=== PATIENT | female | born 1990 | race Caucasian/White ===

== ENCOUNTER 2016-11-19 13:39 | Emergency (ER) | payer OTHER ==
[2016-11-19 13:53] VITALS: BP 133/79; PULSE 100; RESP 22; TEMP 98
[2016-11-19] MEDS ORDERED: FAMOTIDINE 20 MG TAB PO STA (14:09)
[2016-11-19] MEDS ORDERED: LORazepam 1 MG TAB PO STA (14:09)
[2016-11-19] MEDS ORDERED: ONDANSETRON ODT 4 MG TAB PO STA (14:09)
--- NOTE | 2016-11-19 14:14 | ED ---
General Adult HPI - General Chief complaint: Alcohol Stated complaint: Withdraw Time Seen by Provider: 11/19/16 14:01 Source: patient, family, RN notes reviewed Mode of arrival: wheelchair Limitations: no limitations - History of Present Illness Initial comments: Patient is a pleasant 26-year-old female presenting to the emergency department for concerns regarding alcohol withdrawal. Patient has been drinking daily, up to a fifth a day for the past 5 months. Patient was in [facility] last night and last alcohol intake was yesterday. Patient feels shaky. Patient was nauseated yesterday. Patient denies suicidal or homicidal thoughts. No confusion. - Related Data Home Medications Medication Instructions Recorded Confirmed Acetaminophen Tab [Tylenol] 650 mg PO Q4H PRN 11/05/16 11/05/16 Ranitidine HCl [Zantac] 150 mg PO AC-BID 11/05/16 11/05/16 hydrOXYzine PAMOATE [Vistaril] 25 mg PO BID PRN 11/05/16 11/05/16 Previous Rx's Medication Instructions Recorded Gabapentin 600 mg PO TID #45 tablet 10/15/16 Citalopram Hydrobromide [CeleXA] 20 mg PO DAILY #30 tab 11/08/16 Doxepin HCl [SINEquan] 100 mg PO HS #30 cap 11/08/16 LORazepam [Ativan] 1 mg PO BID #12 tab 11/08/16 Nicotine 21Mg/24Hr Patch [Habitrol] 1 patch TRANSDERM DAILY #14 patch 11/08/16 Thiamine [Vitamin B-1] 100 mg PO BID@1200,1700 tab 11/08/16 lamoTRIgine [LaMICtal] 100 mg PO DAILY #30 tab 11/08/16 LORazepam [Ativan] 1 mg PO TID PRN #8 tab 11/19/16 Allergies Allergy/AdvReac Type Severity Reaction Status Date / Time No Known Allergies Allergy Verified 11/05/16 12:01 Review of Systems ROS Statement: Those systems with pertinent positive or pertinent negative responses have been documented in the HPI. ROS Other: All systems not noted in ROS Statement are negative. Constitutional: Denies: fever Eyes: Denies: eye pain ENT: Denies: ear pain Respiratory: Denies: cough Cardiovascular: Denies: chest pain Endocrine: Denies: fatigue Gastrointestinal: Reports: nausea Genitourinary: Denies: dysuria Skin: Denies: rash Neurological: Denies: weakness Psychiatric: Denies: suicidal thoughts Past Medical History Past Medical History: No Reported History History of Any Multi-Drug Resistant Organisms: None Reported Additional Past Surgical History / Comment(s): gastric sleeve, heart surgery ( unknown) Past Anesthesia/Blood Transfusion Reactions: No Reported Reaction Past Psychological History: Anxiety, Bipolar, Depression, Panic Disorder Smoking Status: Current every day smoker Past Alcohol Use History: Abuse, Daily Additional Past Alcohol Use History / Comment(s): Drinking everyday for weeks Past Drug Use History: Marijuana, Prescription Drug Abuse Additional Drug Use History / Comment(s): States drinking for days. 1/5 of vodka or 4-6 beers. General Exam Limitations: no limitations General appearance: alert, in no apparent distress, other (Mild resting tremor) Head exam: Present: atraumatic Eye exam: Present: normal appearance ENT exam: Present: normal oropharynx Neck exam: Present: normal inspection Respiratory exam: Present: normal lung sounds bilaterally Cardiovascular Exam: Present: regular rate, normal rhythm GI/Abdominal exam: Present: soft. Absent: tenderness Extremities exam: Present: normal inspection Neurological exam: Present: alert Psychiatric exam: Present: normal affect, normal mood Skin exam: Absent: rash Course Vital Signs 11/19/16 13:48 Temperature 98.0 F Pulse Rate 100 Respiratory 22 Rate Blood Pressure 133/79 O2 Sat by Pulse 99 Oximetry Disposition Clinical Impression: Alcohol withdrawal syndrome Disposition: HOME SELF-CARE Condition: Stable Instructions: Alcohol Withdrawal (ED) Additional Instructions: Discontinue alcohol use. Please follow-up with her primary care physician in the next day or 2 for recheck. Please follow-up with alcohol rehab, numbers are provided. Return for suicidal thoughts, worsening symptoms or other concerns. Prescriptions: LORazepam [Ativan] 1 mg PO TID PRN #8 tab PRN Reason: Anxiety Referrals: Lee Valdez MD [Primary Care Provider] - 1-2 days
== END 2016-11-19 14:25 | disposition home or self-care (01) ==
LOC: EC 13:39
DX: F10.239 Alcohol dependence with withdrawal, unspecified (principal); F17.200 Nicotine dependence, unspecified, uncomplicated; F31.9 Bipolar disorder, unspecified; F41.9 Anxiety disorder, unspecified; F41.0 Panic disorder [episodic paroxysmal anxiety]; Z79.899 Other long term (current) drug therapy
CPT/HCPCS: 99284

== ENCOUNTER 2016-11-24 17:52 | Emergency (ER) | payer OTHER ==
[2016-11-24 18:05] VITALS: BP 118/88; PULSE 118; RESP 20; TEMP 99.2
[2016-11-24] MEDS ORDERED: LORazepam 1 MG TAB PO STA (18:15)
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
== END 2016-11-24 19:13 | disposition home or self-care (01) ==
LOC: EC 17:52
DX: F41.9 Anxiety disorder, unspecified (principal); F41.0 Panic disorder [episodic paroxysmal anxiety]; F31.9 Bipolar disorder, unspecified; F17.200 Nicotine dependence, unspecified, uncomplicated; F10.20 Alcohol dependence, uncomplicated; Z79.899 Other long term (current) drug therapy
CPT/HCPCS: 99282

== ENCOUNTER 2016-12-09 10:59 | Inpatient (IN) | payer MEDICAID, OTHER ==
--- NOTE | 2016-12-09 11:23 | ED ---
General Adult HPI - General Chief complaint: Psychiatric Symptoms Stated complaint: mental health Time Seen by Provider: 12/09/16 11:08 Source: patient, RN notes reviewed Mode of arrival: ambulatory Limitations: no limitations - History of Present Illness Initial comments: Patient is a pleasant 26-year-old female presenting to the emergency department with depression and suicidal thoughts. Symptoms have been progressive over the past 2-3 weeks. Patient has been under increased stress. Patient feels anxious and has a panic attack almost daily. Patient has thoughts of self-harm without specific plan. No homicidal thoughts. Patient admits to occasional auditory and visual hallucinations. Patient does have a history of suicide attempt in the past. No physical complaints. Patient is not sleeping well. Patient occasionally binge eats and then does not eat prolonged periods after that. No alcohol or street drug use. - Related Data Home Medications Medication Instructions Recorded Confirmed Ranitidine HCl [Zantac] 150 mg PO AC-BID 11/05/16 12/09/16 Citalopram Hydrobromide [CeleXA] 40 mg PO DAILY 11/19/16 12/09/16 Doxepin HCl [SINEquan] 200 mg PO HS 11/19/16 12/09/16 Ibuprofen [Motrin] 800 mg PO Q6HR PRN 12/09/16 12/09/16 Previous Rx's Medication Instructions Recorded Gabapentin 600 mg PO TID #45 tablet 10/15/16 lamoTRIgine [LaMICtal] 100 mg PO DAILY #30 tab 11/08/16 LORazepam [Ativan] 1 mg PO TID PRN #8 tab 11/19/16 LORazepam [Ativan] 0.5 mg PO BID #8 tab 11/24/16 Allergies Allergy/AdvReac Type Severity Reaction Status Date / Time No Known Allergies Allergy Verified 12/09/16 12:23 Review of Systems ROS Statement: Those systems with pertinent positive or pertinent negative responses have been documented in the HPI. ROS Other: All systems not noted in ROS Statement are negative. Constitutional: Denies: fever Eyes: Denies: eye pain ENT: Denies: ear pain Respiratory: Denies: cough, dyspnea Cardiovascular: Denies: chest pain Endocrine: Denies: fatigue Gastrointestinal: Denies: abdominal pain, vomiting Genitourinary: Denies: urgency Musculoskeletal: Denies: back pain Skin: Denies: rash Neurological: Denies: weakness Psychiatric: Reports: anxiety, depression, auditory hallucinations, visual hallucinations, suicidal thoughts. Denies: homicidal thoughts Past Medical History Past Medical History: No Reported History History of Any Multi-Drug Resistant Organisms: None Reported Additional Past Surgical History / Comment(s): gastric sleeve, heart surgery ( unknown) Past Anesthesia/Blood Transfusion Reactions: No Reported Reaction Past Psychological History: Anxiety, Bipolar, Depression, Panic Disorder Smoking Status: Current every day smoker Past Alcohol Use History: Abuse, Daily Additional Past Alcohol Use History / Comment(s): Drinking everyday for weeks Past Drug Use History: Marijuana, Prescription Drug Abuse Additional Drug Use History / Comment(s): States drinking for days. 1/5 of vodka or 4-6 beers. General Exam Limitations: no limitations General appearance: alert, in no apparent distress Head exam: Present: atraumatic Eye exam: Present: normal appearance, PERRL ENT exam: Present: normal oropharynx Neck exam: Present: normal inspection Respiratory exam: Present: normal lung sounds bilaterally Cardiovascular Exam: Present: regular rate, normal rhythm GI/Abdominal exam: Present: soft. Absent: tenderness Extremities exam: Present: normal inspection. Absent: pedal edema, calf tenderness Neurological exam: Present: alert Psychiatric exam: Present: depressed, anxious Skin exam: Absent: rash Course Vital Signs 12/09/16 11:01 Temperature 98.3 F Pulse Rate 102 H Respiratory 18 Rate Blood Pressure 131/83 O2 Sat by Pulse 100 Oximetry Medical Decision Making - Medical Decision Making Patient seen by mental health services, who will admit. - Lab Data Lab Results 12/09/16 Range/Units 11:56 Urine Opiates Screen Not Detected (NotDetected) Ur Oxycodone Screen Not Detected (NotDetected) Urine Methadone Screen Not Detected (NotDetected) Ur Propoxyphene Screen Not Detected (NotDetected) Ur Barbiturates Screen Not Detected (NotDetected) U Tricyclic Antidepress Detected H (NotDetected) Ur Phencyclidine Scrn Not Detected (NotDetected) Ur Amphetamines Screen Not Detected (NotDetected) U Methamphetamines Scrn Not Detected (NotDetected) U Benzodiazepines Scrn Not Detected (NotDetected) Urine Cocaine Screen Not Detected (NotDetected) U Marijuana (THC) Screen Not Detected (NotDetected) Disposition Clinical Impression: Suicidal ideation, Depression Disposition: TRANSFER TO PSYCH HOSP/UNIT
[2016-12-09 13:57] VITALS: BMI 26.2
[2016-12-09] MEDS ORDERED: MAGNESIUM HYDROXIDE 2,400 MG/10 ML CUP PO PRN (14:56)
[2016-12-09] MEDS ORDERED: MAG HYDROX/AL HYDROX/SIMETH 30 ML CUP PO PRN (14:56)
[2016-12-09] MEDS ORDERED: ZIPRASIDONE 20 MG VIAL IM PRN (14:56)
[2016-12-09] MEDS: NICOTINE 14MG/24HR PATCH TRANSDERM SCH (16:21)
[2016-12-09] MEDS: GABAPENTIN 300 MG CAP PO SCH ×2 (16:21→23:18)
[2016-12-09] MEDS: LORazepam 1 MG TAB PO PRN (16:25)
[2016-12-09] MEDS: FAMOTIDINE 20 MG TAB PO SCH (23:18)
[2016-12-10] MEDS: FAMOTIDINE 20 MG TAB PO SCH ×2 (08:20→20:43)
[2016-12-10] MEDS: GABAPENTIN 300 MG CAP PO SCH ×3 (08:20→20:43)
[2016-12-10] MEDS: NICOTINE 14MG/24HR PATCH TRANSDERM SCH (08:21)
[2016-12-10] MEDS: LORazepam 1 MG TAB PO PRN ×2 (08:22→16:16)
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
[2016-12-10 10:18] LABS: ALT 25 U/L (9-52); AST 25 U/L (14-36); Alkaline Phosphatase 42 U/L (38-126); Anion Gap 12 mmol/L; Bilirubin, Delta 0.4 mg/dL (0.0-0.2); Blood Urea Nitrogen 12 mg/dL (7-17); Calcium 9.3 mg/dL (8.4-10.2); Carbon Dioxide 22 mmol/L (22-30); Chloride 110 mmol/L (98-107); Glucose 75 mg/dL (74-99); Non-African American GFR(MDRD) >60 (>60 ml/min/1.73 sqM); Potassium 4.4 mmol/L (3.5-5.1); Sodium 144 mmol/L (137-145); Total Bilirubin 0.6 mg/dL (0.2-1.3); Total Protein 6.9 g/dL (6.3-8.2)
[2016-12-10 10:42] LABS: CHCM 32.5; HCT 39.7 % (34.0-46.0); HGB 13.4 gm/dL (11.4-16.0); MCH 33.3 pg (25.0-35.0); MCHC 33.6 g/dL (31.0-37.0); Mean Platelet Volume 8.8; RBC 4.01 m/uL (3.80-5.40); RDW 12.5 % (11.5-15.5); WBC 5.8 k/uL (3.8-10.6); WBC (Perox) 4.46
[2016-12-10] MEDS: ARIPiprazole 2 MG TAB PO SCH (11:00)
[2016-12-10] MEDS: VENLAFAXINE HCL ER 37.5 MG CAP PO SCH (11:00)
[2016-12-10] MEDS: ACETAMINOPHEN TAB 325 MG TAB PO PRN ×2 (11:12→16:15)
[2016-12-10 12:33] LABS: Add Differential Manual Differential
[2016-12-10 12:36] LABS: Nucleated Red Blood Cells 0 /100 WBC (0-0); RBC Morphology Normal; Total Cells Counted 100
--- NOTE | 2016-12-10 12:51 | CONS ---
DATE OF CONSULTATION: 12/09/16 REASON FOR CONSULTATION: Medical management requested by Dr. Salgado. CONSULTATION: This is a 26 year old patient who is known from prior admissions. The patient has a history of depression and suicidal ideation. . Patient has been drinking alcohol for quite some time, though she says she has stopped for the last 3 weeks, in fact. Still smoking a few cigarettes here and there. The patient had a patient had a gastric bypass surgery. Lost over 200 pounds. Patient is here for depression, suicidal ideation. She is very anxious fidgety. REVIEW OF SYSTEMS: CONSTITUTIONAL: None. HEENT: None. RESPIRATORY: None. CARDIOVASCULAR: None. GASTROINTESTINAL: Occasional heartburn. GENITOURINARY: None. MUSCULOSKELETAL: Some tattoos and nose piercing. HEMATOLOGIC: None. LYMPHATICS: None. PSYCHIATRY: Depressed. NEUROLOGICAL: None. PAST MEDICAL HISTORY: Past medical history of bipolar disorder, chronic alcohol and smoking. PAST SURGICAL HISTORY: Gastric bypass surgery. SOCIAL HISTORY: She is still smoking a few cigarettes a day. Lives with her mother and brother, currently not working anywhere. Stopped drinking about 3 weeks ago was drinking quite a bit before that in binges. FAMILY HISTORY: Noncontributory. ALLERGIES: None. HOME MEDICATIONS: Lamictal 100 mg a day. Zantac 150 mg p.o. b.i.d., Ativan 1 mg p.o. t.i.d. p.r.n. Motrin 800 mg q.6 p.r.n., gabapentin 600 mg p.o. t.i.d. ,doxepin 200 mg p.o. q.h.s., Celexa 40 mg p.o. daily. ALLERGIES: None. PHYSICAL EXAMINATION: On examination, temperature 98.3, pulse 86, respiration 16, blood pressure 124/69, pulse 100% on room air, sitting up very anxious appearing. EYES: Clear, conjunctivae normal. HEENT: Oral cavity normal. Nose pierced. NECK: JVD not raised. Mass not palpable. RESPIRATORY: Effort normal. Lungs are clear. CARDIOVASCULAR: First and second sounds normal. No edema. ABDOMEN: Soft, nontender. Liver and spleen not palpable. LYMPHATIC: No lymph node palpable in neck or axillae. PSYCHIATRY: Alert and oriented x3. Mood and affect very anxious appearing, very fidgety. NEUROLOGICAL: Pupils equal. Cranial grossly intact. INVESTIGATIONS: White count 6.7, sodium 149, potassium 3.9. UA negative. Urine drug screen positive for tricyclics. ASSESSMENT: 1. Chronic nicotine dependence. The patient is a cigarette smoker. 2. Hypernatremia from decreased fluid intake. 3. Hypoglycemia from decreased oral intake. 4. Abnormal TSH, need to be repeated as an outpatient. The patient clinically does not appear to be hyperthyroid and this was actually checked previously. PLAN: Patient advised against smoking was put on nicotine patch. should follow up with her family doctor upon discharge, antidepressants per her psychiatrist. Thank you Dr. Salgado
[2016-12-10] MEDS: DOXEPIN 25 MG CAP PO SCH (23:24)
[2016-12-11] MEDS: NICOTINE 14MG/24HR PATCH TRANSDERM SCH (09:11)
[2016-12-11] MEDS: ARIPiprazole 2 MG TAB PO SCH (09:12)
[2016-12-11] MEDS: FAMOTIDINE 20 MG TAB PO SCH ×2 (09:12→21:18)
[2016-12-11] MEDS: VENLAFAXINE HCL ER 37.5 MG CAP PO SCH (09:12)
[2016-12-11] MEDS: GABAPENTIN 300 MG CAP PO SCH ×3 (09:12→21:18)
[2016-12-11] MEDS: LORazepam 1 MG TAB PO PRN (09:14)
--- NOTE | 2016-12-11 09:24 | P.PN ---
Progress Note - Text Interval history: The patient is found in the hallway she follows me to an interview room. She reports that she feels terrible. She states she feels worse in the morning. She is depressed she has suicidal thoughts. She states she continues to have feelings of derealization. She did sleep during the night she did eat a little bit of food at breakfast. She reports she will try to attend groups today. We discussed her current medications. She has no questions but does want to continue using the Ativan. Mental status exam: The patient is alert she has a disheveled appearance she is dressed in her own clothing. She has a nose ring and dark eye makeup. Eye contact is intermittent. She has no spontaneous speech but answers questions asked of her. She endorses a depressed mood and anxiety and hopelessness thinking. She has ongoing suicidal ideation. She is reporting no hallucinations or specific delusions. She does not appear hypomanic or manic. There is no verbal or physical aggressiveness. She does appear anxious and is chewing on her fingernails throughout the session. She is oriented to person place month and year area insight and judgment limited. Plan: The patient's will continue on the Effexor XR and Abilify as written. We will titrate the Effexor further during the course of the hospitalization and possibly the Abilify. Ativan will be used as needed. Again she is encouraged to consider inpatient chemical dependency treatment upon discharge. We will monitor her for safety encourage her participation in the milieu. Vital signs reviewed. Labs reviewed. She requires continued psychiatric hospitalization for acute safety reasons.
[2016-12-11] MEDS: ACETAMINOPHEN TAB 325 MG TAB PO PRN (10:09)
[2016-12-11] MEDS: IBUPROFEN 800 MG TAB PO PRN (16:21)
[2016-12-11 18:46] LABS: Appearance,Urine Cloudy (Clear); Bilirubin,Urine Negative (Negative); Glucose,Urine (UA) Negative (Negative); Ketones,Urine Negative (Negative); Leukocyte Esterase,Urine Negative (Negative); Mucus,Urine Few /hpf; Nitrite,Urine Negative (Negative); Particle Count 5732; Protein,Urine 1+ (Negative); RBC,Urine 6 /hpf (0-5); Specific Gravity,Urine 1.029 (1.001-1.035); Squamous Epithelial Cell,Urine 10 /hpf (0-4); UA Billing (MACRO vs. MICRO) MICRO; WBC,Urine <1 /hpf (0-5)
[2016-12-11] MEDS: DOXEPIN 25 MG CAP PO SCH (21:18)
[2016-12-12] MEDS: VENLAFAXINE HCL ER 37.5 MG CAP PO SCH (08:35)
[2016-12-12] MEDS: ARIPiprazole 2 MG TAB PO SCH (08:35)
[2016-12-12] MEDS: FAMOTIDINE 20 MG TAB PO SCH ×2 (08:35→21:22)
[2016-12-12] MEDS: LORazepam 1 MG TAB PO PRN ×3 (08:36→21:24)
[2016-12-12] MEDS: GABAPENTIN 300 MG CAP PO SCH ×3 (08:36→21:21)
[2016-12-12] MEDS: NICOTINE 14MG/24HR PATCH TRANSDERM SCH (08:36)
--- NOTE | 2016-12-12 09:52 | P.PN ---
Progress Note - Text Interval history: The patient is found in the hallway she follows me to an interview room. She reports that she woke up this morning without a panic attack or any derealization symptoms. She does however continue to have depressive symptoms anxiety and hopelessness thinking. She reports intermittent suicidal thoughts. We reviewed her medication she feels that the Abilify makes her tired and we will move it to a evening dose. We discussed the Effexor XR in detail and plan to titrate it further tomorrow. She has not called for inpatient chemical dependency treatment and it appears she is deciding not to go. We discussed that it is in her benefit to go to rehab after this hospitalization. Mental status exam: The patient is alert she is dressed in her own clothing eye contact is appropriate speech is fluent spontaneous nonpressured. She endorses a depressed and anxious mood with intermittent suicidal thoughts. Affect is dysphoric. She continues to appear anxious at times as well. Thought process is linear. She demonstrates no hypomanic or manic symptoms she is endorsing no symptoms of psychosis there is no overt evidence of psychosis. Insight and judgment impaired. There is no verbal or physical aggressiveness displayed. She remains alert and oriented to person place and date. Plan: The patient will continue on her current medications. I will increase the Effexor XR to 75 mg daily and we will change the Abilify to bedtime dosing. She is strongly encouraged to reconsider attending inpatient chemical dependency treatment for her alcohol use disorder. At length we discussed the benefits of attending that program. We will continue to monitor her for safety. She requires continued hospitalization for acute safety reasons. Vital signs reviewed.
[2016-12-12] MEDS: DOXEPIN 25 MG CAP PO SCH (21:21)
[2016-12-13] MEDS: FAMOTIDINE 20 MG TAB PO SCH ×2 (09:16→20:13)
[2016-12-13] MEDS: VENLAFAXINE HCL ER 75 MG CAP PO SCH (09:17)
[2016-12-13] MEDS: NICOTINE 14MG/24HR PATCH TRANSDERM SCH (09:17)
[2016-12-13] MEDS: GABAPENTIN 300 MG CAP PO SCH ×3 (09:17→20:13)
[2016-12-13] MEDS: LORazepam 1 MG TAB PO PRN ×2 (09:18→16:45)
--- NOTE | 2016-12-13 09:53 | P.PN ---
Progress Note - Text Interval history: The patient is found in the hallway she follows me to an interview room. She reports that her mood has been improving. She did feel anxious this morning but feels it will dissipate. She has been in phone contact with her mother. She finds herself recently upset with her boyfriend as he did not come to visit last evening. She reports attending some groups she is encouraged to fully participate in the milieu. We discussed her medication specifically the Effexor XR and Abilify again. She is strongly encouraged to arrange inpatient chemical dependency treatment but she states that she does not want to do that at this time. Again this was discussed in detail. Mental status exam: The patient is alert female appearing her stated age she seated calmly in the chair. She is wearing a nose ring and has dark eye makeup. Speech is fluent spontaneous nonpressured. Thought process is linear. She is reporting no acute suicidal ideation intent or plan today she is trying to foster future oriented thinking. She is reporting no homicidal ideation and there is no evidence of hypomanic or manic symptoms. She demonstrates no verbal or physical aggressiveness. There is no evidence of psychosis. She remains oriented to person place and date. Affect is becoming more appropriately expressive. Plan: The patient will continue on her current medications. We will monitor her for safety and consider a discharge as early as tomorrow. Social work will be asked to arrange a support meeting. Again she is asked to reconsider inpatient chemical dependency treatment. She is encouraged to attend all groups. Vital signs reviewed.
[2016-12-13] MEDS: IBUPROFEN 800 MG TAB PO PRN (16:46)
[2016-12-13] MEDS: DOXEPIN 25 MG CAP PO SCH (20:13)
[2016-12-13] MEDS ORDERED: ARIPiprazole 2 MG TAB PO SCH (21:00)
[2016-12-14 06:19] VITALS: BP 125/66; PULSE 72; RESP 16; TEMP 97.9
[2016-12-14] MEDS: NICOTINE 14MG/24HR PATCH TRANSDERM SCH (08:47)
[2016-12-14] MEDS: FAMOTIDINE 20 MG TAB PO SCH (08:47)
[2016-12-14] MEDS: LORazepam 1 MG TAB PO PRN (08:48)
[2016-12-14] MEDS: VENLAFAXINE HCL ER 75 MG CAP PO SCH (08:48)
[2016-12-14] MEDS: GABAPENTIN 300 MG CAP PO SCH ×2 (08:48→15:35)
[2016-12-14] MEDS: IBUPROFEN 800 MG TAB PO PRN (08:49)
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
[2016-12-14] MEDS: ACETAMINOPHEN TAB 325 MG TAB PO PRN (11:56)
[2017-01-06] MEDS ORDERED: BENZOCAINE/MENTHOL LOZENG 1 EACH LOZENGE MUCOUS MEM PRN (17:08)
== END 2016-12-14 16:15 | disposition home or self-care (01) | DRG 885 ==
LOC: EC 10:59 → 3MHU 12:44
PROVIDERS: ADMIT Psychiatry & Neurology Psychiatry; ATTEND Psychiatry & Neurology Psychiatry
DX: F31.9 Bipolar disorder, unspecified (principal); E87.0 Hyperosmolality and hypernatremia; R45.851 Suicidal ideations; F11.20 Opioid dependence, uncomplicated; E16.2 Hypoglycemia, unspecified; F17.210 Nicotine dependence, cigarettes, uncomplicated; F41.0 Panic disorder [episodic paroxysmal anxiety]; F41.1 Generalized anxiety disorder; F48.1 Depersonalization-derealization syndrome; Z81.8 Family history of other mental and behavioral disorders; Z91.5 Personal history of self-harm; Z98.84 Bariatric surgery status; F10.10 Alcohol abuse, uncomplicated
CPT/HCPCS: 80053; 80306; 81001; 81025; 82075; 82248; 84443; 85025; 99285

== ENCOUNTER 2017-01-04 20:50 | Inpatient (IN) | payer MEDICAID, OTHER ==
[2017-01-05] MEDS ORDERED: MAG HYDROX/AL HYDROX/SIMETH 30 ML CUP PO PRN (03:26)
[2017-01-05] MEDS ORDERED: MAGNESIUM HYDROXIDE 2,400 MG/10 ML CUP PO PRN (03:26)
[2017-01-05 05:49] VITALS: BMI 29.0
[2017-01-05] MEDS: NICOTINE 21MG/24HR PATCH TRANSDERM SCH (08:06)
--- NOTE | 2017-01-05 11:10 | P.HP ---
Psychiatric H&P - . H&P Date: 01/05/17 History & Physical: Allergies Allergy/AdvReac Type Severity Reaction Status Date / Time No Known Allergies Allergy Verified 01/05/17 03:46 Vital Signs Temp 98.0 F 01/05/17 07:10 Pulse 97 01/05/17 07:10 Resp 16 01/05/17 07:10 BP 110/57 01/05/17 07:10 Pulse Ox Intake & Output 01/04/17 01/05/17 01/05/17 18:59 06:59 18:59 Weight 76.7 kg 01/05/17 11:00 IDENTIFYING DATA: 26-year-old single female patient HPI: Patient admitted to the inpatient psychiatric unit [facility] on involuntary basis, petition done by mother. Petition relays "she called her sister, who went to her home and would not answer door. Charlotte-her sister called 911. Adelita has tried taking her life in the past few months, this is her third attempt." Patient reports that she's been going through a lot. She talks about stressor that day of having had a argument with her boyfriend and he left. She states that she has been feeling depressed and she took a bunch of sleeping pills, more than a handful. She does admit that she had thoughts of suicide at the time. It was doxepin that she took an overdose of. She says she got help because she called her sister and mom. She admits to decreased interest and enjoyment in things lately. Regarding thoughts of suicide she relays that it was just in that moment. She also had drank some alcohol because she was mad and upset. She says she is regretting all of it regarding the overdose. She says physically she feels kind of tired and weak but feels she needs to get back on her medications. She was transferred here for admission from [facility]. PAST PSYCHIATRIC HISTORY: she states that this is her fourth admission here. She has not been chronically taking her psychotropic medications recently. Her most recent medicines a been Effexor XR 75 mg daily, Abilify 5 motives at bedtime and Ativan. She felt like his medications were helping her when she was taking them. She has a history of diagnosis of bipolar disorder with a history of manic episodes, says bipolar disorder was diagnosed in [facility]. She has been seeing Tim[facility] Bal for counseling and saw the psychiatrist for the first time at [facility]. She states that this is her second suicide attempt her first one was also an overdose. She describes that Abilify has been prescribed for feelings of derealization. She describes feelings like she is not here. PMH: Denies ALLERGIES: no known ALLERGIES MEDICATIONS: current medications are Tylenol when necessary, Maalox when necessary, milk of magnesia when necessary, Habitrol patch CHEMICAL DEPENDENCY HISTORY: Says she did have an alcohol problem, trying to stay away from it. She did drink the day that she took the overdose. Months prior she was drinking every day. FAMILY PSYCHIATRIC HISTORY: Whole dad's side of the family with depression including her dad. Mom and sister with depression. FAMILY CHEMICAL DEPENDENCY HISTORY: none known at this time. SOCIAL HISTORY: currently lives with her mom. She has 1 sister. She says she has not talked her boyfriend since this incident and she says they have been greater than 6 months together. She is not currently working. She did graduate from high school. MENTAL STATUS EXAM: she is alert and cooperative with the interview. Her speech is fluent, not rapid or pressured. Her affect is restricted. Her mood is described as "really depressed and sad." She does state she is glad to be alive. She denies any current thoughts of harm to self or others. No evidence of active psychosis. She does not make any delusional statements and does not verbalize any hallucinations. Cognitively she appears very grossly intact. I do not note any disorientation or significant memory disturbance. Her insight is adequate, judgment shows evidence of recent impairment. STRENGTHS/WEAKNESSES: strengths-some support systems, seeking treatment; weaknesses-coping skills INTELLECTUAL FUNCTIONING: average IMPRESSIONS: AXIS I : Bipolar disorder, depressed; history of alcohol use disorder AXIS II: deferred AXIS III: status post overdose of doxepin AXIS IV: relationship AXIS V: 30 PLAN: patient is admitted to the inpatient psychiatric unit [facility], she is agreeable to sign an AFV form. She'll be placed on SP 15 minute cautious. She'll be participating in group and activity therapies. Baseline laboratory workup be done for the patient and medical consultation will be ordered. We'll reinitiate Effexor XR 75 mg daily for depression and Abilify 5 mg at bedtime for mood stabilization. We'll order Ativan when necessary for any significant anxiety. We will look into any support systems. Estimated length of stay is 3-5 days. Prognosis is guarded. We'll continue to cover this patient for Dr. Salgado through the weekend.
[2017-01-05] MEDS: LORazepam 1 MG TAB PO PRN ×2 (12:20→22:21)
[2017-01-05] MEDS: GABAPENTIN 400 MG CAP PO SCH ×2 (15:47→20:49)
[2017-01-05] MEDS: ACETAMINOPHEN TAB 325 MG TAB PO PRN ×2 (15:48→20:50)
[2017-01-05] MEDS: ARIPiprazole 5 MG TAB PO SCH (20:49)
[2017-01-06] MEDS: VENLAFAXINE HCL ER 75 MG CAP PO SCH (07:56)
[2017-01-06] MEDS: GABAPENTIN 400 MG CAP PO SCH ×3 (07:56→20:53)
[2017-01-06] MEDS: NICOTINE 21MG/24HR PATCH TRANSDERM SCH (07:56)
--- NOTE | 2017-01-06 08:01 | CONS ---
DATE OF CONSULTATION: 01/05/2017. REASON FOR CONSULTATION: Medical management as requested by Dr. Salgado. CONSULTATION: This is a 26-year-old patient who I transferred from [facility]. Patient overdosed with doxepin and Amitriptyline, there had received activated charcoal, bicarb and IV fluids and was ( ) the ICU. This is the third attempt the patient has done. Patient was then transferred here. The patient doing better, depressed, walking about. When I came, she was talking to her boyfriend on the phone. She tells me she is really in love with him and does not know how to control things. Patient does drink alcohol off and also smokes cigarettes. History of gastric bypass surgery. Lost 200 pounds. Remains sad, depressed. REVIEW OF SYSTEMS: CONSTITUTIONAL: Tired. HEENT: None. RESPIRATORY: None. CARDIOVASCULAR: None. GASTROINTESTINAL: Occasional heartburn. GENITOURINARY: None. MUSCULOSKELETAL: None. Dermatological: Some tattoos ( ). HEMATOLOGICAL: None. LYMPHATIC: None. PSYCHIATRY: Depressed. NEUROLOGICAL: None. Past medical history of bipolar disorder, alcoholism and smoking. PAST SURGICAL HISTORY: Gastric bypass surgery. SOCIAL HISTORY: Smokes a few cigarettes here and there. Lives with her mother. Drinks off and on, in fact, had an alcohol binge drinking when she presented to the other hospital. Family history is noncontributory. ALLERGIES: None. Current medications: 1. Tylenol. 2. Maalox. 3. Abilify 5 mg q.h.s. 4. Neurontin 800 mg p.o. t.i.d. 5. Ativan 1 mg p.o. b.i.d. 6. Nicotine patch. 7. Effexor 75 mg a day. ALLERGIES: None. On examination, temperature 98, pulse 97, respiration 16, blood pressure 110/57, pulse ox 97% on room air. GENERAL APPEARANCE: Sitting up, comfortable. EYES: Pupils equal, conjunctivae normal. NECK: JVD not raised. Mass not palpable. RESPIRATORY: Effort normal. Lungs are clear. CARDIOVASCULAR: First and second sounds normal. No edema. ABDOMEN: Soft, nontender. Liver and spleen not palpable. PSYCHIATRY: Alert and oriented x3. Mood and affect low. NEUROLOGICAL: Pupils equal. Cranial nerves grossly intact. Power and sensation grossly intact. INVESTIGATIONS: White count 5.8, hemoglobin 13.4. Potassium 4.4. BUN and creatinine are normal. Urine drug screen positive for tricyclic antidepressants. ASSESSMENT: 1. Bipolar disorder with major depression with suicide attempt. 2. Chronic nicotine dependence. Patient smokes off and on. 3. Binge alcohol drinking. 4. History of gastric bypass surgery. PLAN: Care was discussed with the patient. Told again to keep off alcohol and smoking. I did inform the patient that the mother told me yesterday that the patient should stay from the boyfriend as this precipitates these episodes. Thank you, Dr. Salgado.
[2017-01-06] MEDS: LORazepam 1 MG TAB PO PRN ×2 (10:50→18:31)
[2017-01-06] MEDS: ACETAMINOPHEN TAB 325 MG TAB PO PRN (16:13)
--- NOTE | 2017-01-06 17:36 | P.PN ---
Progress Note - Text Interval history: Patient seen in [facility] today for Dr. Salgado. She reports that she is having some mood ups and downs and describes a lot of anxiety. She states that the Ativan doesn't seem to be really working that well. She does not seem to voice any adverse psychotropic medication side effects. Mental status exam: She is alert and cooperative with the interview. Her speech is fluent, not rapid or pressured. Thought processes organized. Her mood is she describes as ups and downs. she denies any thoughts of harm to self or others. No evidence of current psychosis or agitation. Plan: We'll maintain current psychotropic medications. Patient is given encouragement regarding continuing to let her medications work better for her. She feels like the Ativan is too far apart at current scheduling, we'll change his scheduling to every 8 hours when necessary but limit of 2 doses per day to help with anxiety. Dr. Salgado to resume care this patient starting tomorrow.
[2017-01-06] MEDS: BENZOCAINE/MENTHOL LOZENG 1 EACH LOZENGE MUCOUS MEM PRN ×2 (18:28→21:07)
[2017-01-06] MEDS: ARIPiprazole 5 MG TAB PO SCH (20:53)
[2017-01-07] MEDS: NICOTINE 21MG/24HR PATCH TRANSDERM SCH (08:21)
[2017-01-07] MEDS: VENLAFAXINE HCL ER 75 MG CAP PO SCH (08:22)
[2017-01-07] MEDS: GABAPENTIN 400 MG CAP PO SCH ×3 (08:22→21:11)
[2017-01-07] MEDS: LORazepam 1 MG TAB PO PRN ×2 (08:23→16:16)
[2017-01-07] MEDS: ACETAMINOPHEN TAB 325 MG TAB PO PRN ×2 (09:21→16:16)
[2017-01-07] MEDS: BENZOCAINE/MENTHOL LOZENG 1 EACH LOZENGE MUCOUS MEM PRN (09:22)
--- NOTE | 2017-01-07 10:11 | P.PN ---
Progress Note - Text Interval history: The patient is found in group she follows me to an interview room. The patient is well known to this service as she has had several hospitalizations recently. She reports that she discontinued her psychotropic medications for approximately one week and has been intermittently using alcohol again. She has not been willing to participate in inpatient chemical dependency treatment. She states that the Effexor and Abilify have been helpful she does stopped for unclear reasons. She is still participating in mental health court. We discussed other medication options specifically naltrexone for her opiate use disorder. She states suicidal thoughts are resolving. Mental status exam: The patient is a female appearing her stated age she is dressed in her own clothing she has a nose ring and dark eye shadow. Eye contact is appropriate speech is fluent spontaneous nonpressured. She endorses her mood is better affect is more appropriately expressive. She is reporting no acute suicidal or homicidal ideation intent or plan at this time. Insight and judgment limited. Cognitively she is oriented to person place and date. There is no evidence of psychosis hypomanic or manic symptoms. There is no physical psychomotor agitation or slowing. Plan: The patient will continue on her current psychotropic medications we will add naltrexone 50 mg daily to help reduce cravings for alcohol use. We will continue to monitor for safety and encourage her participation in the milieu. She is encouraged to consider inpatient chemical dependency treatment. She states she is already linked with a nurse practitioner at [facility] [place] and continues to see her therapist weekly. Vital signs reviewed. She does have Ativan available for alcohol withdrawal symptoms.
[2017-01-07] MEDS: NALTREXONE HCL 50 MG TAB PO SCH (11:01)
[2017-01-07] MEDS: ARIPiprazole 5 MG TAB PO SCH (21:10)
[2017-01-08 07:26] VITALS: RESP 16
[2017-01-08] MEDS: NICOTINE 21MG/24HR PATCH TRANSDERM SCH (08:44)
[2017-01-08] MEDS: LORazepam 1 MG TAB PO PRN ×2 (08:45→16:27)
[2017-01-08] MEDS: VENLAFAXINE HCL ER 75 MG CAP PO SCH (08:45)
[2017-01-08] MEDS: GABAPENTIN 400 MG CAP PO SCH ×3 (08:45→20:20)
[2017-01-08] MEDS: NALTREXONE HCL 50 MG TAB PO SCH (08:45)
--- NOTE | 2017-01-08 08:55 | P.PN ---
Progress Note - Text Interval history: The patient is found in the hallway she follows me to an interview room. She reports that her moods improving. She states she did have a conversation with her mother and they did talk about the possibility of her going to inpatient chemical dependency treatment. We discuss all the benefits of attending inpatient chemical dependency treatment. She continues to operationalize avoidance defense mechanisms and rationalization. She has been compliant with the Effexor XR and Abilify no side effects reported. We initiated naltrexone. Mental status exam: The patient is alert she is dressed in her own clothing eye contact is appropriate. Speech is fluent and spontaneous nonpressured. She reports her suicidal thoughts are resolving she is feeling more hopeful again. There is no report of auditory or visual hallucinations. She does continue to have anxiety symptoms which are chronically present. No hypomanic or manic symptoms. No evidence of psychosis. No verbal or physical aggressiveness. Affect is demonstrating appropriate range. Plan: The patient will continue on her current medications. Based on our conversation this morning she will call the access line to arrange inpatient chemical dependency treatment. We will consider discharging her in the next 1- 2 days if she demonstrates sufficient clinical improvement. Vital signs reviewed.
[2017-01-08] MEDS: ACETAMINOPHEN TAB 325 MG TAB PO PRN (15:39)
[2017-01-08] MEDS: ARIPiprazole 5 MG TAB PO SCH (20:20)
[2017-01-09 06:35] VITALS: BP 110/55; PULSE 81; TEMP 97.7
[2017-01-09] MEDS: VENLAFAXINE HCL ER 75 MG CAP PO SCH (08:45)
[2017-01-09] MEDS: NICOTINE 21MG/24HR PATCH TRANSDERM SCH (08:45)
[2017-01-09] MEDS: NALTREXONE HCL 50 MG TAB PO SCH (08:46)
[2017-01-09] MEDS: GABAPENTIN 400 MG CAP PO SCH (08:46)
[2017-01-09] MEDS: LORazepam 1 MG TAB PO PRN (08:47)
--- NOTE | 2017-01-09 09:19 | P.DS ---
Providers Date of admission: 01/04/17 20:50 Expected date of discharge: 01/09/17 Attending physician: Kiel Salgado Consults: 01/05/17 03:26 Consult Physician Routine Consulting Provider: Charly Amos Consult Reason/Comments: medical management Do you want consulting provider notified?: Yes, Notify in am Primary care physician: eLe Valdez - Discharge Diagnosis(es) (1) Bipolar 1 disorder, depressed Current Visit: Yes Status: Acute Priority: High (2) Generalized anxiety disorder Current Visit: Yes Status: Acute Priority: High (3) Alcohol use disorder Current Visit: Yes Status: Acute Priority: High (4) Opiate dependence Current Visit: Yes Status: Acute Priority: Medium Hospital Course: Brief summary of admission note: This patient is a 26-year-old single female who was admitted to the mental health unit after she attempted suicide with a medication overdose. Apparently again this was in reaction to an argument with her boyfriend. She does have a established diagnosis of alcohol use disorder and used alcohol the day of the overdose and several days prior. The patient is well known to this service as she has had several recent admissions for similar circumstances. Dr. Abel completed the psychiatric admission please refer to his psychiatric evaluation dated 01/05/2017. Summary of hospital course: The patient was admitted with a petition however she did sign in voluntarily. She was restarted on her Effexor XR and Abilify. The patient did overdose on doxepin initially and was medically cleared prior to her admission to our unit. I assumed care of the patient on Saturday. We discussed her ongoing alcohol use issues. Over the past several admissions she refused to attend inpatient chemical dependency treatment but with this admission she was finally agreeable. Her family supported her in this decision during this admission. She called access and is scheduled to start at [place] on the of this month. We initiated naltrexone 50 mg daily. The patient reported a progressive improvement of symptoms while on the mental health unit including a resolution of any suicidal ideation. She demonstrated no agitated behavior. She demonstrated no physical signs of alcohol withdrawal. She underwent a routine medical consultation while on the mental health unit. logging worker completed a phone support meeting with the patient's mother. Mental status exam: The patient is an alert female appearing her stated age. She is dressed in her own clothing eye contact is appropriate. She wears dark eye shadow. She has a nose ring. She reports her mood is "good " she states that she is happy and excited about attending rehab. Affect is euthymic. She reports having no suicidal or homicidal ideation intent or plan. She is endorsing no racing thoughts. She is endorsing no auditory or visual hallucinations. No reported specific delusions there is no evidence of psychosis. She does not present hypomanic or manic. Insight and judgment have improved and are grossly intact. She demonstrates no verbal or physical aggressiveness. She remains cognitively stable and is alert and oriented to person place and date. Impressions 1. Bipolar 1 disorder most recent depressed, generalized anxiety disorder, alcohol use disorder, opiate use disorder 2. Cluster B traits 3. Recent doxepin overdose, remote history of back pain 4. Psychosocial dysfunction due to psychiatric symptoms including recent alcohol use, relationship strain with boyfriend which frequently serves as a precipitant to mood symptoms Plan: The patient will be discharged today to return home. She will continue on Effexor XR 75 mg daily Abilify 5 mg daily Neurontin 800 mg 3 times daily naltrexone 50 mg daily. She is scheduled to begin inpatient chemical dependency treatment on 01/13/2017. She is instructed not to use any alcohol marijuana or illicit drugs. We discussed that her safety risk is elevated when she uses O substances. She feels supported by her mother her mother has informed social media executive that she will help manage the patient's medications. There is no imminent safety risk she is appropriate for transition back to outpatient psychiatric care. The patient's instructed to return to the hospital with any acute safety concerns. Patient Condition at Discharge: Stable Plan - Discharge Summary New Discharge Prescriptions: ARIPiprazole [Abilify] 5 mg PO HS #30 tab Gabapentin [Neurontin] 800 mg PO TID #45 tablet Naltrexone HCl [Revia] 50 mg PO DAILY #30 tab Nicotine 21Mg/24Hr Patch [Habitrol] 1 patch TRANSDERM DAILY #14 patch Venlafaxine HCl ER [Effexor XR] 75 mg PO DAILY #30 cap.er.24h Discharge Medication List Ranitidine HCl [Zantac] 150 mg PO AC-BID 11/05/16 [History] Ibuprofen [Motrin] 800 mg PO Q6HR PRN 12/09/16 [History] ARIPiprazole [Abilify] 5 mg PO HS #30 tab 02/22/17 [Rx] Gabapentin [Neurontin] 800 mg PO TID #45 tablet 01/09/17 [Rx] Naltrexone HCl [Revia] 50 mg PO DAILY #30 tab 01/09/17 [Rx] Nicotine 21Mg/24Hr Patch [Habitrol] 1 patch TRANSDERM DAILY #14 patch 01/09/17 [ Rx] Venlafaxine HCl ER [Effexor XR] 75 mg PO DAILY #30 cap.er.24h 01/09/17 [Rx] Follow up Appointment(s)/Referral(s): Intake, intake [Other] - 01/14/17 11:00 am (Intake 01/14/17 at 11:00 am)
== END 2017-01-09 10:16 | disposition home or self-care (01) | DRG 885 ==
LOC: 3MHU 20:50
PROVIDERS: ADMIT Psychiatry & Neurology Psychiatry; ATTEND Psychiatry & Neurology Psychiatry
DX: F31.9 Bipolar disorder, unspecified (principal); F11.20 Opioid dependence, uncomplicated; R45.851 Suicidal ideations; F17.210 Nicotine dependence, cigarettes, uncomplicated; F41.1 Generalized anxiety disorder; Z81.8 Family history of other mental and behavioral disorders; Z91.5 Personal history of self-harm; Z98.84 Bariatric surgery status
CPT/HCPCS: 84443

== ENCOUNTER 2017-03-18 12:30 | Inpatient (IN) | payer OTHER ==
[2017-03-18] MEDS ORDERED: NALOXONE 0.4 MG/ML 1 ML VIAL IV STA (12:34)
[2017-03-18] MEDS ORDERED: SODIUM CHLORIDE 0.9% 1,000 ML IV STA (12:34)
--- NOTE | 2017-03-18 12:41 | ED ---
General Adult HPI - General Stated complaint: poss OD Time Seen by Provider: 03/18/17 12:30 Source: RN notes reviewed - History of Present Illness Initial comments: This is a 26-year-old female presents to the emergency Department complaining that she overdosed last evening on the tricyclic drug doxepin. Patient states she took a half a bottle last evening about 11 PM. Mom found her this morning very lethargic with decreased responsiveness though the patient is able to answer questions she just doesn't very slowly. Patient herself states she was trying to harm herself last evening. Patient denies any other drugs on board. Patient denies headache patient denies numbness weakness. Patient's complaining of dry mouth. Patient denies any chest pain difficulty breathing or shortness of breath. Patient denies any abdominal pain patient denies nausea vomiting diarrhea. - Related Data Home Medications Medication Instructions Recorded Confirmed Ibuprofen [Motrin] 800 mg PO PC-TID 03/19/17 03/19/17 LORazepam [Ativan] 0.5 mg PO BID 03/19/17 03/19/17 Venlafaxine HCl ER [Effexor XR] 150 mg PO DAILY 03/19/17 03/19/17 Previous Rx's Medication Instructions Recorded ARIPiprazole [Abilify] 5 mg PO HS #30 tab 01/09/17 Nicotine 21Mg/24Hr Patch [Habitrol] 1 patch TRANSDERM DAILY patch 03/19/17 Pantoprazole [Protonix] 40 mg PO AC-BID tablet. 03/19/17 Gabapentin [Neurontin] 800 mg PO TID 30 Days 03/21/17 Naltrexone HCl [Revia] 50 mg PO DAILY 30 Days 03/21/17 Allergies Allergy/AdvReac Type Severity Reaction Status Date / Time No Known Allergies Allergy Verified 03/19/17 15:26 Review of Systems ROS Statement: Those systems with pertinent positive or pertinent negative responses have been documented in the HPI. ROS Other: All systems not noted in ROS Statement are negative. Past Medical History Past Medical History: No Reported History, Supraventricular Tachycardia (SVT) Additional Past Medical History / Comment(s): history of sciatica injury 2yrs/. gastric sleeve/ 2 yrs/ was 378lbs and went down to 130 done at [facility] History of Any Multi-Drug Resistant Organisms: None Reported Past Surgical History: Bariatric Surgery, Cardiac Ablation Additional Past Surgical History / Comment(s): gastric sleeve, heart surgery ( unknown) Past Anesthesia/Blood Transfusion Reactions: No Reported Reaction Past Psychological History: Anxiety, Bipolar, Depression, Panic Disorder Smoking Status: Current every day smoker Past Alcohol Use History: Abuse, Daily Additional Past Alcohol Use History / Comment(s): Drinking everyday for weeks Past Drug Use History: Marijuana, Prescription Drug Abuse Additional Drug Use History / Comment(s): States drinking for days. 1/5 of vodka or 4-6 beers. - Past Family History Father History Unknown: Yes Mother History Unknown: Yes Sister(s) Additional Family Medical History / Comment(s): Sister had SVT General Exam - General Exam Comments Initial Comments: GENERAL: Patient is well-developed and well-nourished. Patient is nontoxic and well- hydrated and is in no acute distress. Patient is very lethargic ENT: Neck is soft and supple. No significant lymphadenopathy is noted. Oropharynx is clear. Moist mucous membranes. Neck has full range of motion without eliciting any pain. EYES: The sclera were anicteric and conjunctiva were pink and moist. Extraocular movements were intact and pupils were equal round and reactive to light. Eyelids were unremarkable. PULMONARY: Unlabored respirations. Good breath sounds bilaterally. No audible rales rhonchi or wheezing was noted. CARDIOVASCULAR: There is a regular rate and rhythm without any murmurs gallops or rubs. ABDOMEN: Soft and nontender with normal bowel sounds. No palpable organomegaly was noted. There is no palpable pulsatile mass. SKIN: Skin is clear with no lesions or rashes and otherwise unremarkable. NEUROLOGIC: Patient is alert and oriented x3. Cranial nerves II through XII are grossly intact. Motor and sensory are also intact. Normal speech, volume and content. Symmetrical smile. MUSCULOSKELETAL: Normal extremities with adequate strength and full range of motion. No lower extremity swelling or edema. No calf tenderness. LYMPHATICS: No significant lymphadenopathy is noted PSYCHIATRIC: Patient states he purposely overdosed trying to harm her self on doxepin. Course Vital Signs 03/18/17 03/18/17 03/18/17 12:35 13:05 13:30 Temperature 97.4 F L Pulse Rate 97 103 H 98 Respiratory 18 20 18 Rate Blood Pressure 138/73 128/73 128/77 O2 Sat by Pulse 98 100 99 Oximetry 03/18/17 03/18/17 03/18/17 14:08 14:35 15:04 Temperature 98.4 F Pulse Rate 87 98 99 Respiratory 18 18 18 Rate Blood Pressure 128/73 129/73 129/75 O2 Sat by Pulse 100 99 100 Oximetry Medical Decision Making - Medical Decision Making EKG shows normal sinus rhythm at 90 bpm CA interval is on a 156 QRS is 98 QT interval 368 QTC is 450. Patient's drug screen came back positive for tricyclic antidepressants. Patient remains lethargic. I spoke with Dr. Olmedo I admitted the patient I wrote admitting orders. - Lab Data Result diagrams: 03/18/17 12:45 03/18/17 12:45 Lab Results 03/18/17 03/18/17 03/18/17 Range/Units 12:41 12:45 12:45 WBC 9.3 (3.8-10.6) k/uL RBC 3.91 (3.80-5.40) m/uL Hgb 12.2 (11.4-16.0) gm/dL Hct 36.5 (34.0-46.0) % MCV 93.6 (80.0-100.0) fL MCH 31.2 (25.0-35.0) pg MCHC 33.4 (31.0-37.0) g/dL RDW 12.9 (11.5-15.5) % Plt Count 189 (150-450) k/uL Neutrophils % 89 % Lymphocytes % 7 % Monocytes % 3 % Eosinophils % 1 % Basophils % 0 % Neutrophils # 8.3 H (1.3-7.7) k/uL Lymphocytes # 0.6 L (1.0-4.8) k/uL Monocytes # 0.3 (0-1.0) k/uL Eosinophils # 0.1 (0-0.7) k/uL Basophils # 0.0 (0-0.2) k/uL PT (9.0-12.0) sec INR (<1.1) Sodium 144 (137-145) mmol/L Potassium 4.1 (3.5-5.1) mmol/L Chloride 111 H (98-107) mmol/L Carbon Dioxide 26 (22-30) mmol/L Anion Gap 7 mmol/L BUN 17 (7-17) mg/dL Creatinine 0.80 (0.52-1.04) mg/dL Est GFR (MDRD) Af Amer >60 (>60 ml/min/1.73 sqM) Est GFR (MDRD) Non-Af >60 (>60 ml/min/1.73 sqM) Glucose 103 H (74-99) mg/dL POC Glucose (mg/dL) 108 H (75-99) mg/dL POC Glu Automotive Service Technician ID Renuka Peck Calcium 9.1 (8.4-10.2) mg/dL Total Bilirubin 0.9 (0.2-1.3) mg/dL AST 55 H (14-36) U/L ALT 28 (9-52) U/L Alkaline Phosphatase 62 (38-126) U/L Total Protein 6.2 L (6.3-8.2) g/dL Albumin 3.7 (3.5-5.0) g/dL Urine HCG, Qual (Not Detectd) Salicylates <1.0 mg/dL Urine Opiates Screen (NotDetected) Ur Oxycodone Screen (NotDetected) Urine Methadone Screen (NotDetected) Ur Propoxyphene Screen (NotDetected) Acetaminophen <10.0 ug/mL Ur Barbiturates Screen (NotDetected) U Tricyclic Antidepress (NotDetected) Ur Phencyclidine Scrn (NotDetected) Ur Amphetamines Screen (NotDetected) U Methamphetamines Scrn (NotDetected) U Benzodiazepines Scrn (NotDetected) Urine Cocaine Screen (NotDetected) U Marijuana (THC) Screen (NotDetected) Serum Alcohol <10 mg/dL 03/18/17 03/18/17 03/18/17 Range/Units 12:45 12:45 12:45 WBC (3.8-10.6) k/uL RBC (3.80-5.40) m/uL Hgb (11.4-16.0) gm/dL Hct (34.0-46.0) % MCV (80.0-100.0) fL MCH (25.0-35.0) pg MCHC (31.0-37.0) g/dL RDW (11.5-15.5) % Plt Count (150-450) k/uL Neutrophils % % Lymphocytes % % Monocytes % % Eosinophils % % Basophils % % Neutrophils # (1.3-7.7) k/uL Lymphocytes # (1.0-4.8) k/uL Monocytes # (0-1.0) k/uL Eosinophils # (0-0.7) k/uL Basophils # (0-0.2) k/uL PT 11.3 (9.0-12.0) sec INR 1.1 (<1.1) Sodium (137-145) mmol/L Potassium (3.5-5.1) mmol/L Chloride (98-107) mmol/L Carbon Dioxide (22-30) mmol/L Anion Gap mmol/L BUN (7-17) mg/dL Creatinine (0.52-1.04) mg/dL Est GFR (MDRD) Af Amer (>60 ml/min/1.73 sqM) Est GFR (MDRD) Non-Af (>60 ml/min/1.73 sqM) Glucose (74-99) mg/dL POC Glucose (mg/dL) (75-99) mg/dL POC Glu Automotive Service Technician ID Calcium (8.4-10.2) mg/dL Total Bilirubin (0.2-1.3) mg/dL AST (14-36) U/L ALT (9-52) U/L Alkaline Phosphatase (38-126) U/L Total Protein (6.3-8.2) g/dL Albumin (3.5-5.0) g/dL Urine HCG, Qual Not Detected (Not Detectd) Salicylates mg/dL Urine Opiates Screen Not Detected (NotDetected) Ur Oxycodone Screen Not Detected (NotDetected) Urine Methadone Screen Not Detected (NotDetected) Ur Propoxyphene Screen Not Detected (NotDetected) Acetaminophen ug/mL Ur Barbiturates Screen Detected H (NotDetected) U Tricyclic Antidepress Detected H (NotDetected) Ur Phencyclidine Scrn Not Detected (NotDetected) Ur Amphetamines Screen Not Detected (NotDetected) U Methamphetamines Scrn Not Detected (NotDetected) U Benzodiazepines Scrn Not Detected (NotDetected) Urine Cocaine Screen Not Detected (NotDetected) U Marijuana (THC) Screen Not Detected (NotDetected) Serum Alcohol mg/dL Disposition Clinical Impression: Tricyclic overdose Disposition: ADMITTED IP TO THIS HOSP Condition: Stable Time of Disposition: 13:49
[2017-03-18 12:42] LABS: Glucose,Whole Blood 108 mg/dL (75-99)
[2017-03-18 13:00] LABS: Basophils % (A) 0 %; CH 31.7; Eosinophils # (A) 0.1 k/uL (0-0.7); Eosinophils % (A) 1 %; HCT 36.5 % (34.0-46.0); HDW 2.78; HGB 12.2 gm/dL (11.4-16.0); Luc # (Auto) 0.07; Luc % (Auto) 1; Lymphocytes # (A) 0.6 k/uL (1.0-4.8); Lymphocytes % (A) 7 %; MCH 31.2 pg (25.0-35.0); MCHC 33.4 g/dL (31.0-37.0); MCV 93.6 fL (80.0-100.0); Mean Platelet Volume 8.8; Monocytes # (A) 0.3 k/uL (0-1.0); Monocytes % (A) 3 %; Neutrophils # (A) 8.3 k/uL (1.3-7.7); Neutrophils % (A) 89 %; RBC 3.91 m/uL (3.80-5.40); RDW 12.9 % (11.5-15.5); WBC 9.3 k/uL (3.8-10.6); WBC (Perox) 10.12
[2017-03-18 13:15] LABS: ALT 28 U/L (9-52); AST 55 U/L (14-36); Acetaminophen <10.0 ug/mL; Alcohol <10 mg/dL; Alkaline Phosphatase 62 U/L (38-126); Anion Gap 7 mmol/L; Blood Urea Nitrogen 17 mg/dL (7-17); Calcium 9.1 mg/dL (8.4-10.2); Carbon Dioxide 26 mmol/L (22-30); Chloride 111 mmol/L (98-107); Glucose 103 mg/dL (74-99); Non-African American GFR(MDRD) >60 (>60 ml/min/1.73 sqM); Potassium 4.1 mmol/L (3.5-5.1); Salicylate <1.0 mg/dL; Sodium 144 mmol/L (137-145); Total Bilirubin 0.9 mg/dL (0.2-1.3); Total Protein 6.2 g/dL (6.3-8.2)
[2017-03-18] MEDS ORDERED: SODIUM CHLORIDE 0.9% 1,000 ML IV ONE (13:49)
[2017-03-18 14:28] LABS: VBG PH 7.47 (7.31-7.41)
[2017-03-18 14:37] LABS: INR 1.1 (<1.1); Prothrombin Time 11.3 sec (9.0-12.0)
[2017-03-18] MEDS: PANTOPRAZOLE 40 MG TABLET PO SCH (18:31)
[2017-03-18] MEDS ORDERED: HALOPERIDOL LACTATE 5 MG/ML 1 ML VIAL IM PRN (20:38)
[2017-03-18] MEDS ORDERED: ALPRAZolam 0.5 MG TAB PO PRN (20:39)
[2017-03-18] MEDS ORDERED: ARIPiprazole 5 MG TAB PO SCH (21:00)
[2017-03-18] MEDS ORDERED: DOXAZOSIN 2 MG TAB PO SCH (21:00)
[2017-03-18] MEDS: NICOTINE 21MG/24HR PATCH TRANSDERM SCH (21:15)
--- NOTE | 2017-03-18 23:29 | HP ---
DATE OF ADMISSION: Patient is a 26-year-old who came into the emergency department with tricyclic antidepressant overdose She took half a bottle last evening; not sure how many pills are in the bottle. Patient was lethargic. Patient is able to give me history, but not clear because of her excessive drowsiness. Patient needs to be watched for seizure activity and needs to be watched for ( ). Patient's ( ) is around 450 at this point of time, which is not bad. Patient needs to be watched for her respiratory status as well. Patient was trying to kill herself. Patient is severely depressed, I believe. Patient is on 4 antidepressants ( ) SSRI along with an antipsychotic, in spite of which patient is severely depressed. Patient may be noncompliant with medication. Patient has 1:1 sitter. Psychiatry will evaluate the patient ( ) ibuprofen, aripiprazole, gabapentin ( ) Venlafaxine, nicotine. REVIEW OF SYSTEMS: All other systems were reviewed and were negative. ALLERGIES: NO KNOWN DRUG ALLERGIES. PAST MEDICAL HISTORY: 1. Ventricular tachycardia in the past. 2. Bariatric surgery. 3. Cardiac ablation surgery. 4. Gastric sleeve surgery. 5. Anxiety. 6. Bipolar. 7. Depression. 8. Panic disorder. SOCIAL HISTORY: Patient does smoke every day. Alcohol abuse history. Marijuana use history. Patient drinks about one fifth of vodka or ( ) 4 to 6 beers a day. PHYSICAL EXAMINATION: VITAL SIGNS: Temperature 98.0, pulse of 99, respiratory rate of 22. Blood pressure is 129/75. Saturating at 98% on room air. GENERAL: Patient is excessively drowsy, barely able to give me any ( ) history. HEENT: Pupils are round and equally reacting to light. EOMI. No scleral icterus. No conjunctival pallor. Normocephalic, atraumatic. No pharyngeal erythema. No thyromegaly. CARDIOVASCULAR: S1 and S2 present. No murmurs, rubs, or gallops. PULMONARY: Chest is clear to auscultation, no wheezing or crackles. ABDOMEN: Soft, nontender, nondistended, normoactive bowel sounds. No palpable organomegaly. MUSCULOSKELETAL: No joint swelling or deformity. EXTREMITIES: No cyanosis, clubbing, or pedal edema. NEUROLOGICAL: Gross neurological examination did not reveal any focal deficits. SKIN: No rashes. LABORATORY DATA: CBC, CMP are abnormal for mildly elevated chloride of 111 secondary to IV fluids. AST is minimally elevated. QTc as mentioned above. Patient's drug screen is positive for barbiturates and tricyclic antidepressants. Alcohol level is less than 10. ASSESSMENT AND PLAN: 1. Suicide attempt. 2. Drug overdoses. Patient will be watched for seizures, convulsions, ( ) toxicity and coma. Telemetry monitoring and CBC monitoring. 3. Suicide attempt, for which ( ) 1:1 sitter. 4. ( ) history. Will watch for any withdrawals. As of now will not start her on any Ativan. Patient will be started on IV fluids. Once patient is more awake, she can actually be started on a diet. 5. Gastroesophageal reflux disease. 6. Chronic pain. 7. Peripheral neuropathy. l MTDD
[2017-03-19 07:56] VITALS: BP 109/67; PULSE 79; RESP 20; TEMP 96.6
[2017-03-19] MEDS: PANTOPRAZOLE 40 MG TABLET PO SCH (08:20)
--- NOTE | 2017-03-19 08:27 | P.CN ---
Psychiatric Consult - . Consult date: 03/19/17 Consult:: IDENTIFYING DATA: Ms. Cota is a 26-year-old single female who presented to Emergency Department on 03/18/2017 following the self-reported overdose of the tricyclic antidepressant doxepin. HISTORY OF PRESENT ILLNESS: I reviewed the medical record and attempted to interview Mrs. Cota. She is laying comfortably in bed. When I entered the room her eyes were open. After I introduced myself she closed her eyes and pretended to be sleeping. She would not answer questions. She told the ER physician that she took half a bottle of the medication around 11 PM. Her mother found her the following morning lethargic. She alleged that she took the overdose with the intent to end her life. Urine drug screen was positive for barbiturates and tricyclic antidepressants. Her serum alcohol level was less than 10. She said prior overdoses including overdoses of doxepin. The overdoses are usually in relationship to interpersonal conflict such as a breakup of relationship or an argument with boyfriend. PAST PSYCHIATRIC HISTORY: She is well known to the psychiatric unit from prior admissions. She is had 4 admissions psychiatric unit since September 2016. Her last admission was in December 2016 when she presented following a attempted suicide by overdose of doxepin.. Her discharge diagnoses included bipolar disorder most recently depressed, generalized anxiety disorder, alcohol use disorder and opiate use disorder and cluster B personality traits. We referred her to [facility] for residential substance abuse treatment. Her discharge medications included Effexor 75 mg daily, Abilify 5 mg daily Neurontin 800 mg 3 times daily and naltrexone 50 mg daily. PAST MEDICAL HISTORY: According to record, she has history of bariatric surgery , supraventricular tachycardia. SUBSTANCE USE HISTORY: She has history of alcohol and opiate use disorder. In the past she consumed up to one half from alcohol daily. She had been prescribed Suboxone for primary care physician for the treatment of opiate use problems. SOCIAL HISTORY: Her parents are . She is single and has no children. She received a high school diploma. She is not employed. According to the record, she has been charged with domestic violence. MENTAL STATUS EXAM: She presented as a disheveled appearing young female wearing heavy makeup and a no-show hearing. She did not make eye contact. She had a flat facial expression. She did not cooperate with examination. She would not answer questions. IMPRESSIONS: She is a 26-year-old female with multiple psychiatric hospitalizations for suicide attempts and gestures. She presented to the hospital following a sore purported overdose of the antidepressant doxepin; according to record she has presented with similar complaints in the past. Her psychiatric diagnoses included bipolar disorder, alcohol use disorder and opiate use disorder. She not cooperate with the psychiatric assessment but considering the potential self-harm risks she should be transferred to the psychiatric unit when medically stable. DIAGNOSIS: Suicide attempt by tricyclic to person overdose PLAN: Continue one-to-one sitter until transfer to the psychiatric unit.. 03/19/17 08:09
[2017-03-19] MEDS: NICOTINE 21MG/24HR PATCH TRANSDERM SCH (08:45)
[2017-03-19] MEDS ORDERED: CITALOPRAM HYDROBROMIDE 20 MG TAB PO SCH (09:00)
--- NOTE | 2017-03-19 15:18 | P.DS ---
Providers Date of admission: 03/18/17 13:49 Expected date of discharge: 03/19/17 Attending physician: Cece Olmedo Consults: 03/18/17 14:02 Consult Physician Stat Consulting Provider: Davis Rebolledo Consult Reason/Comments: Suicidal Do you want consulting provider notified?: Yes Primary care physician: Lee Valdez Hospital Course: 1. Bipolar disorder with severe depression, with suicide attempt in a patient with history of prior multiple suicide attempts. 2. Chronic nicotine dependence 3. EtOH abuse history 4. Gastroesophageal reflux disease 5. Chronic pain 6. Peripheral neuropathy 7. Opiate use disorder Hospital course: This is a 26-year-old female admitted with tricyclic antidepressant overdose in a patient with history of severe depression. Urine drug screen positive for barbiturates and tricyclic antidepressants. Serum alcohol level less than 10. Maintained on IV fluid hydration, Ativan, telemetry monitoring, seizure and suicide precautions. EKG on admission reporting normal sinus rhythm, QT 0.45. At discharge, telemetry sinus rhythm with QT 0.40. No seizure, convulsion activity. Minimal tremors. Evaluated by psychiatry and patient is scheduled for transfer to mental health unit. Significant clinical improvement .Patient is being discharged in a stable condition with guarded prognosis due to MHU. The impression and plan of care has been dictated as directed. .: I performed a H&P examination of this patient and discussed the same with the dictator. I agree with the dictator's note. Any additional findings/opinions/ etc. will be noted. Patient Condition at Discharge: Stable Plan - Discharge Summary Discharge Medication List ARIPiprazole [Abilify] 5 mg PO HS #30 tab 01/09/17 [Rx] Citalopram Hydrobromide [CeleXA] 40 mg PO DAILY 03/18/17 [History] Nicotine 21Mg/24Hr Patch [Habitrol] 1 patch TRANSDERM DAILY patch 03/19/17 [Rx] Pantoprazole [Protonix] 40 mg PO AC-BID tablet. 03/19/17 [Rx] Follow up Appointment(s)/Referral(s): Davis Rebolledo MD [STAFF PHYSICIAN] - 03/19/17 Lee Valdez MD [Primary Care Provider] - 3 Days (after dc from MHU) Activity/Diet/Wound Care/Special Instructions: No smoking Discharge Disposition: TRANSFER TO PSYCH HOSP/UNIT
== END 2017-03-19 14:53 | DRG 918 ==
LOC: EC 12:30 → 4MS4W 13:49
PROVIDERS: ADMIT Internal Medicine; ATTEND Internal Medicine
DX: T43.012A Poisoning by tricyclic antidepressants, intentional self-harm, initial encounter (principal); F10.19 Alcohol abuse with unspecified alcohol-induced disorder; F31.4 Bipolar disorder, current episode depressed, severe, without psychotic features; G62.9 Polyneuropathy, unspecified; G89.29 Other chronic pain; F41.0 Panic disorder [episodic paroxysmal anxiety]; R68.2 Dry mouth, unspecified; F11.99 Opioid use, unspecified with unspecified opioid-induced disorder; T14.91 Suicide attempt; M54.30 Sciatica, unspecified side; K21.9 Gastro-esophageal reflux disease without esophagitis; R25.1 Tremor, unspecified; F12.90 Cannabis use, unspecified, uncomplicated; F41.1 Generalized anxiety disorder; F17.200 Nicotine dependence, unspecified, uncomplicated; Z79.899 Other long term (current) drug therapy; Z79.1 Long term (current) use of non-steroidal anti-inflammatories (NSAID); Z86.79 Personal history of other diseases of the circulatory system; Z91.5 Personal history of self-harm; Z87.828 Personal history of other (healed) physical injury and trauma; Z82.49 Family history of ischemic heart disease and other diseases of the circulatory system; Z91.14 Patient's other noncompliance with medication regimen; Z98.84 Bariatric surgery status; Z65.3 Problems related to other legal circumstances; Y90.0 Blood alcohol level of less than 20 mg/100 ml; Y92.019 Unspecified place in single-family (private) house as the place of occurrence of the external cause
CPT/HCPCS: 36415; 80053; 80184; 80306; 80320; 81025; 82803; 83520; 83605; 85025; 85610; 93005; 96361; 96374; 99285

== ENCOUNTER 2017-03-19 14:28 | Inpatient (IN) | payer MEDICAID, OTHER ==
[2017-03-19] MEDS ORDERED: MAG HYDROX/AL HYDROX/SIMETH 30 ML CUP PO PRN (15:07)
[2017-03-19] MEDS ORDERED: MAGNESIUM HYDROXIDE 2,400 MG/10 ML CUP PO PRN (15:07)
[2017-03-19] MEDS ORDERED: ACETAMINOPHEN TAB 325 MG TAB PO PRN (15:07)
[2017-03-19 15:46] VITALS: BMI 26.7
[2017-03-19] MEDS: LORazepam 1 MG TAB PO PRN (18:09)
[2017-03-19] MEDS: PANTOPRAZOLE 40 MG TABLET PO SCH (18:09)
[2017-03-19] MEDS: ARIPiprazole 5 MG TAB PO SCH (21:10)
[2017-03-20] MEDS: PANTOPRAZOLE 40 MG TABLET PO SCH ×2 (08:15→17:45)
[2017-03-20] MEDS: CITALOPRAM HYDROBROMIDE 20 MG TAB PO SCH (08:15)
[2017-03-20] MEDS: LORazepam 1 MG TAB PO PRN ×3 (08:17→23:36)
[2017-03-20] MEDS: NICOTINE 21MG/24HR PATCH TRANSDERM SCH (08:17)
[2017-03-20] MEDS ORDERED: IBUPROFEN 800 MG TAB PO PRN (09:09)
[2017-03-20] MEDS: GABAPENTIN 100 MG CAP PO SCH ×2 (16:26→21:20)
[2017-03-20] MEDS: ARIPiprazole 5 MG TAB PO SCH (21:20)
[2017-03-20 23:38] VITALS: RESP 18
[2017-03-21 01:50] VITALS: TEMP 97.6
[2017-03-21] MEDS: NICOTINE 21MG/24HR PATCH TRANSDERM SCH (08:03)
[2017-03-21] MEDS: GABAPENTIN 100 MG CAP PO SCH (08:03)
[2017-03-21] MEDS: CITALOPRAM HYDROBROMIDE 20 MG TAB PO SCH (08:03)
[2017-03-21] MEDS: PANTOPRAZOLE 40 MG TABLET PO SCH (08:03)
[2017-03-21] MEDS: LORazepam 1 MG TAB PO PRN ×2 (08:04→16:03)
[2017-03-21] MEDS ORDERED: VENLAFAXINE HCL ER 75 MG CAP PO SCH (09:45)
[2017-03-21] MEDS ORDERED: NALTREXONE HCL 50 MG TAB PO SCH (09:45)
[2017-03-21] MEDS ORDERED: LORATADINE 10 MG TAB PO PRN (10:06)
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
[2017-03-21] MEDS ORDERED: GABAPENTIN 400 MG CAP PO SCH (16:00)
[2017-03-21 16:05] VITALS: BP 135/87; PULSE 114
== END 2017-03-21 16:46 | disposition home or self-care (01) | DRG 882 ==
LOC: 3MHU 14:48
PROVIDERS: ADMIT Psychiatry & Neurology Psychiatry; ATTEND Psychiatry & Neurology Psychiatry
DX: F43.25 Adjustment disorder with mixed disturbance of emotions and conduct (principal); F41.1 Generalized anxiety disorder; F11.90 Opioid use, unspecified, uncomplicated; K21.9 Gastro-esophageal reflux disease without esophagitis; Z79.899 Other long term (current) drug therapy; Z81.8 Family history of other mental and behavioral disorders; Z91.5 Personal history of self-harm

== ENCOUNTER 2017-04-13 01:42 | Inpatient (IN) | payer MEDICAID, OTHER ==
[2017-04-13] MEDS ORDERED: DIPH,PERTUS(ACELL)TETVAC-LF 0.5 ML VIAL IM ONE (02:31)
--- NOTE | 2017-04-13 02:48 | ED ---
Wound/Laceration HPI - General Chief Complaint: Wound/Laceration Stated Complaint: Mental Health Time Seen by Provider: 04/13/17 01:52 Source: patient, EMS, RN notes reviewed Mode of arrival: EMS Limitations: no limitations - History of Present Illness Initial Comments: 26-year-old female presents emergency Department via EMS for suicidal threats, left wrist laceration. Patient had an argument with sister in which she states that she wanted to kill herself and cut her wrists. Patient states that she is not suicidal at this time denies any homicidal thoughts. Patient does have alcohol on board. She has a history of alcohol abuse, prescription drug abuse. She has been admitted multiple times for bipolar disorder. Patient states that she is right-hand dominant. Patient is unsure when her last tetanus was. - Related Data Home Medications Medication Instructions Recorded Confirmed Ibuprofen [Motrin] 800 mg PO PC-TID 03/19/17 04/13/17 LORazepam [Ativan] 0.5 mg PO BID 03/19/17 04/13/17 Venlafaxine HCl ER [Effexor XR] 150 mg PO DAILY 03/19/17 04/13/17 Citalopram Hydrobromide [CeleXA] 40 mg PO QAM 04/13/17 04/13/17 Doxepin HCl [SINEquan] 200 mg PO HS 04/13/17 04/13/17 Gabapentin 800 mg PO TID 04/13/17 04/13/17 Eoy-Tbjw-Umsum Acid 1 cap PO DAILY 04/13/17 04/13/17 [-U Capsule (formulary)] Ranitidine HCl [Zantac] 150 mg PO BID 04/13/17 04/13/17 busPIRone HCl [Buspar] 10 mg PO TID 04/13/17 04/13/17 cloNIDine HCL [Catapres] 0.1 mg PO AC-TID 04/13/17 04/13/17 Previous Rx's Medication Instructions Recorded ARIPiprazole [Abilify] 5 mg PO HS #30 tab 01/09/17 Naltrexone HCl [Revia] 50 mg PO DAILY 30 Days 03/21/17 Allergies Allergy/AdvReac Type Severity Reaction Status Date / Time No Known Allergies Allergy Verified 04/13/17 10:17 Review of Systems ROS Statement: Those systems with pertinent positive or pertinent negative responses have been documented in the HPI. ROS Other: All systems not noted in ROS Statement are negative. Past Medical History Past Medical History: Supraventricular Tachycardia (SVT) Additional Past Medical History / Comment(s): history of sciatica injury 2yrs/. gastric sleeve/ 2 yrs/ was 378lbs and went down to 130 done at [facility] History of Any Multi-Drug Resistant Organisms: None Reported Past Surgical History: Bariatric Surgery, Cardiac Ablation Additional Past Surgical History / Comment(s): gastric sleeve, heart surgery ( unknown) Past Anesthesia/Blood Transfusion Reactions: No Reported Reaction Past Psychological History: Anxiety, Bipolar, Depression, Panic Disorder Additional Psychological History / Comment(s): Pt resides with her mother. She is independent with her ADLS. She is an alcoholic. She has used marijuana inthe past but states none since November 2016. She denies prescription drug abuse. She is unemployed at this time. Smoking Status: Current every day smoker Past Alcohol Use History: Abuse, Daily Additional Past Alcohol Use History / Comment(s): Drinking everyday for weeks Past Drug Use History: Marijuana, Prescription Drug Abuse Additional Drug Use History / Comment(s): States drinking for days. 1/5 of vodka or 4-6 beers. - Past Family History Father History Unknown: Yes Mother History Unknown: Yes Sister(s) Additional Family Medical History / Comment(s): Sister had SVT General Exam Limitations: no limitations General appearance: alert, in no apparent distress Head exam: Present: atraumatic, normocephalic, normal inspection Eye exam: Present: normal appearance, PERRL, EOMI. Absent: scleral icterus, conjunctival injection, periorbital swelling ENT exam: Present: normal exam, normal oropharynx, mucous membranes moist Neck exam: Present: normal inspection, full ROM. Absent: tenderness, meningismus, lymphadenopathy Respiratory exam: Present: normal lung sounds bilaterally. Absent: respiratory distress, wheezes, rales, rhonchi, stridor Cardiovascular Exam: Present: normal rhythm, tachycardia, normal heart sounds. Absent: systolic murmur, diastolic murmur, rubs, gallop, clicks Extremities exam: Present: other (Left wrist there is a 4 cm laceration does extend through tendon, there is no active bleeding pulses are equal bilaterally Refill less than 2 seconds patient does have good range of motion) Neurological exam: Present: alert, oriented X3, CN II-XII intact, reflexes normal. Absent: motor sensory deficit Psychiatric exam: Present: other (Patient is tearful) Skin exam: Present: warm, dry Course Vital Signs 04/13/17 04/13/17 04/13/17 02:00 03:44 05:37 Temperature 97.0 F L Pulse Rate 121 H 113 H 109 H Respiratory 20 18 18 Rate Blood Pressure 140/80 130/61 O2 Sat by Pulse 97 98 98 Oximetry Procedures - Laceration Laceration #1 Consent Obtained: verbal consent Indication: laceration Site: upper extremity (Left wrist) Size (cm): 4 Description: linear Depth: involves tendon Anesthetic Used: lidocaine 1%, without epi Anesthesia Technique: local infiltration Amount (mls): 6 Pre-repair: wound explored, irrigated extensively Type of Sutures: nylon Size of Sutures: 4-0 Number of Sutures: 6 Technique: simple, interrupted Patient Tolerated Procedure: well, no complications Additional Comments: Short arm volar splint was placed on the left arm wrist was placed in a slightly flexed position is neurovascular intact before and after procedure Medical Decision Making - Lab Data Lab Results 04/13/17 Range/Units 02:36 Urine Opiates Screen Not Detected (NotDetected) Ur Oxycodone Screen Not Detected (NotDetected) Urine Methadone Screen Not Detected (NotDetected) Ur Propoxyphene Screen Not Detected (NotDetected) Ur Barbiturates Screen Not Detected (NotDetected) U Tricyclic Antidepress Not Detected (NotDetected) Ur Phencyclidine Scrn Not Detected (NotDetected) Ur Amphetamines Screen Detected H (NotDetected) U Methamphetamines Scrn Not Detected (NotDetected) U Benzodiazepines Scrn Not Detected (NotDetected) Urine Cocaine Screen Not Detected (NotDetected) U Marijuana (THC) Screen Not Detected (NotDetected) Disposition Clinical Impression: Laceration of left wrist, Depression Disposition: ADMITTED IP TO THIS [facility] Condition: Good
[2017-04-13] MEDS ORDERED: IBUPROFEN 600 MG TAB PO STA (04:35)
[2017-04-13] MEDS ORDERED: OLANZapine ODT 5 MG TAB PO STA (05:58)
[2017-04-13] MEDS ORDERED: ACETAMINOPHEN TAB 325 MG TAB PO STA (05:58)
[2017-04-13] MEDS ORDERED: ZIPRASIDONE 20 MG VIAL IM PRN (07:27)
[2017-04-13] MEDS ORDERED: MAGNESIUM HYDROXIDE 2,400 MG/10 ML CUP PO PRN (07:27)
[2017-04-13] MEDS ORDERED: MAG HYDROX/AL HYDROX/SIMETH 30 ML CUP PO PRN (07:27)
[2017-04-13] MEDS ORDERED: OLANZapine ODT 5 MG TAB PO PRN (07:30)
[2017-04-13 09:37] VITALS: BMI 27.1
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
[2017-04-13] MEDS: GABAPENTIN 300 MG CAP PO SCH ×4 (12:31→21:52)
[2017-04-13] MEDS: PANTOPRAZOLE 40 MG TABLET PO SCH ×3 (12:31→18:57)
[2017-04-13] MEDS: ARIPiprazole 5 MG TAB PO SCH (12:31)
[2017-04-13] MEDS: VENLAFAXINE HCL ER 75 MG CAP PO SCH (12:33)
[2017-04-13] MEDS: LORazepam 0.5 MG TAB PO PRN (12:36)
[2017-04-13] MEDS: hydrOXYzine PAMOATE 25 MG CAP PO PRN (12:37)
[2017-04-13] MEDS: NICOTINE 21MG/24HR PATCH TRANSDERM SCH (12:51)
[2017-04-13] MEDS: ACETAMINOPHEN TAB 325 MG TAB PO PRN ×2 (13:34→19:21)
[2017-04-13] MEDS: cloNIDine HCL 0.1 MG TAB PO SCH (18:07)
--- NOTE | 2017-04-13 18:09 | CONS ---
DATE OF CONSULTATION: 04/13/2017 REASON FOR CONSULTATION: Advice regarding supraventricular tachycardia and other multiple medical issues requested by psychiatrist. HISTORY OF PRESENT ILLNESS: This 26 -year-old woman with past medical history of SVT, history of sciatic and gastric sleeve, history of bariatric surgery, cardiac ablation, history of anxiety with bipolar disorder, depression, panic disorder being followed by Dr. Valdez in the outpatient setting was admitted for psychiatric evaluation. Patient apparently had multiple cuts on the left arm. Incision was treated in the emergency room. Neurovascularity was intact of the left hand and the distal left hand per orthopedic surgery. There is no history of fever, rigors or chills. No history of headache, loss of consciousness or seizures. The patient is slightly drowsy after medications. PAST MEDICAL HISTORY: History of a supraventricular tachycardia, history of bariatric surgery, weight loss of about 200 pounds, anxiety, bipolar depression, panic disorder. Medications prior to admission include home medications are: 1. Catapres 0.1 p.o. t.i.d. 2. Buspar 10 mg t.i.d. 3. Effexor XR 150 mg p.o. daily. 4. Zantac 150 mg p.o. b.i.d. 5. vitamin daily. 6. [place] 50 mg p.o. daily. 7. Ativan 0.5 mg p.o. b.i.d. 8. Motrin 800 mg p.o. a.c. t.i.d. 9. Gabapentin 800 mg t.i.d. 10. [place] 200 mg p.o. q.h.s. 11. Celexa 40 in the morning. 12. Abilify 5 mg q.h.s. ALLERGIES: None. FAMILY HISTORY: History of SVT in the family. SOCIAL HISTORY: History of smoking , history of alcohol. REVIEW OF SYSTEMS: Could not be taken, the patient is drowsy. PHYSICAL EXAMINATION: VITAL SIGNS: Pulse is 109, blood pressure 130/67, respirations 18, temperature 97 degrees, pulse ox 98% on room air. HEENT: Conjunctivae normal. Oral mucosa moist. NECK: No jugular venous distention. No carotid bruit. No lymph node enlargement. CARDIOVASCULAR SYSTEM: S1, S2 muffled. Tachycardic. Breath sounds diminished at the bases. No rhonchi. No crackles. ABDOMEN: Soft, nontender. Legs: No edema. No swelling. Nervous system: Higher functions as mentioned earlier. Moves all 4 limbs. LYMPHATICS: No lymph nodes palpable in the neck, axillae or groin. SKIN: Skin lesion on the face resulting from self-picking. the left arm status post cast. JOINTS: No active deformity. LABORATORY DATA: Drug screen is positive for amphetamines. ASSESSMENT: 1. Status post lacerated wound on the left arm and surgery and suture. 2. Supraventricular tachycardia. 3. Tachycardia. 4. History of gastric sleeve and more than 250 pounds weight loss. 5. History of bariatric surgery. 6. History of cardiac ablation. 7. History of anxiety, bipolar depression, panic disorder. 8. History of ETOH. 9. History of THC. 10. History of methamphetamines. 11. History of nicotine dependence. 12. FULL CODE. RECOMMENDATIONS AND DISCUSSION: In this 26-year-old woman who presented with multiple complex medical issues, I recommended resume the home medications. I would be happy to review any abnormal labs. Otherwise, continue to monitor. Guarded prognosis. Further recommendations to follow. The patient may be asked to follow with Dr. Valdez closely after discharge. Thank you for the consultation. ASH
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
[2017-04-13] MEDS: FAMOTIDINE 20 MG TAB PO SCH (21:52)
[2017-04-14] MEDS: NICOTINE 21MG/24HR PATCH TRANSDERM SCH (08:35)
[2017-04-14] MEDS: NALTREXONE HCL 50 MG TAB PO SCH (08:35)
[2017-04-14] MEDS: VENLAFAXINE HCL ER 75 MG CAP PO SCH (08:35)
[2017-04-14] MEDS: GABAPENTIN 300 MG CAP PO SCH ×3 (08:35→20:34)
[2017-04-14] MEDS: PANTOPRAZOLE 40 MG TABLET PO SCH ×2 (08:35→16:03)
[2017-04-14] MEDS: FAMOTIDINE 20 MG TAB PO SCH ×2 (08:35→20:34)
[2017-04-14] MEDS: ARIPiprazole 5 MG TAB PO SCH (08:35)
[2017-04-14] MEDS: cloNIDine HCL 0.1 MG TAB PO SCH ×3 (08:37→16:03)
[2017-04-14] MEDS: ACETAMINOPHEN TAB 325 MG TAB PO PRN (08:39)
[2017-04-14] MEDS: PRENATAL VIT-IRON-FOLIC ACID 1 EACH CAP PO SCH (13:54)
[2017-04-14 14:28] LABS: Basophils # (A) 0.1 k/uL (0-0.2); Basophils % (A) 2 %; CH 30.7; CHCM 30.3; Eosinophils # (A) 0.1 k/uL (0-0.7); Eosinophils % (A) 2 %; HDW 2.65; HGB 12.9 gm/dL (11.4-16.0); Hypochromasia Moderate; Luc # (Auto) 0.17; Luc % (Auto) 3; Lymphocytes % (A) 38 %; MCHC 31.4 g/dL (31.0-37.0); Macrocytosis Slight; Mean Platelet Volume 10.1; Monocytes # (A) 0.5 k/uL (0-1.0); Monocytes % (A) 9 %; Neutrophils # (A) 2.5 k/uL (1.3-7.7); Neutrophils % (A) 46 %; RBC 4.02 m/uL (3.80-5.40); RDW 13.8 % (11.5-15.5); WBC 5.3 k/uL (3.8-10.6); WBC (Perox) 5.49
[2017-04-14 14:32] LABS: MCV 101.8 fL (80.0-100.0)
[2017-04-14 14:35] LABS: ALT 62 U/L (9-52); AST 42 U/L (14-36); Alkaline Phosphatase 50 U/L (38-126); Anion Gap 10 mmol/L; Blood Urea Nitrogen 13 mg/dL (7-17); Calcium 9.2 mg/dL (8.4-10.2); Carbon Dioxide 22 mmol/L (22-30); Chloride 107 mmol/L (98-107); Glucose 95 mg/dL (74-99); Non-African American GFR(MDRD) >60 (>60 ml/min/1.73 sqM); Potassium 4.5 mmol/L (3.5-5.1); Sodium 139 mmol/L (137-145); Total Bilirubin 0.3 mg/dL (0.2-1.3); Total Protein 6.7 g/dL (6.3-8.2)
--- NOTE | 2017-04-14 15:11 | P.PN ---
Progress Note - Text Date of service: 04/14/2017 Chief complaint: "I feel so tired, hot and cold and shaking " Subjective: The patient has been seen today as follow-up, chart reviewed, case discussed with the treatment team. The patient was unable to come to see me at the office and a half to see her in her room with a hardware developer. Patient presented very irritable, sweating, shaking and she reported has nausea, feeling hot and cold and generalized body ache. Patient reported recent use of different narcotic before she came to the hospital. Apparently she is going through opioid withdrawal, and as per record the medical team prescribed clonidine but the patient blood pressure was in the low range and clonidine was held. Discussed with the nurse to continue monitor the blood pressure and to give clonidine if tolerated. There is no other medications available at the hospital to address opioid withdrawal symptoms to be given to the patient. Reported still feels depressed with significant mood swings. She reported high anxiety and feels very irritable. She denies feeling suicidal or homicidal and he denies any intention or plan to hurt self or others. She reported has fair sleep last night and her appetite is relatively better today. The patient denies any manic or psychotic symptoms and she denies paranoia and no delusions could be elicited. Review of other systems: Patient denies any physical symptoms besides what has been mentioned above. No breathing problems, no chest pain reported today. Objective: Vitals has been reviewed. Mental status examination; patient appears stated age in hospital gown, disheveled, poorly groomed with her right forearm covered with bandage Patient has a steady gait was no abnormal movement Patient was cooperative with fair eye contact Patient has no psychomotor agitation or retardation Speech was spontaneous, normal rate and volume and articulated Affect, constricted The patient presented with goal oriented and linear thought form and she was coherent. Her thought content doesn't presented with any delusions and she denies any suicidal suicidal or homicidal thoughts. Perception: Denies any auditory or visual hallucinations Attention: No impairment. Patient was able to repeat serial 7. Orientation: Patient patient was fully oriented to time place person and situation. Insight: Patient has limited insight about his psychiatric disorder. Judgment: Patient has limited judgment about his psychiatric treatment. Assessment: Bipolar disorder type I most recent episode depression Borderline personality disorder Post traumatic stress disorder Opioid use disorder Opioid withdrawal Plan: Continue inpatient level of care Continue Abilify 7 mg by mouth daily as a mood stabilizer Continue Effexor XL 150 mg daily for depression and anxiety symptoms Continue Neurontin 600 mg 3 times a day for anxiety and post acute withdrawal Continue naltrexone 50 mg daily for alcohol and opioid cravings Vistaril and Ativan when necessary for anxiety Clonidine for opioid withdrawal as tolerated, hold if blood pressure less than 90/60 Continue monitoring patient withdrawal symptoms
[2017-04-14] MEDS: LORazepam 0.5 MG TAB PO PRN (16:06)
[2017-04-15] MEDS: cloNIDine HCL 0.1 MG TAB PO SCH ×3 (08:18→16:47)
[2017-04-15] MEDS: NICOTINE 21MG/24HR PATCH TRANSDERM SCH (08:18)
[2017-04-15] MEDS: PANTOPRAZOLE 40 MG TABLET PO SCH (08:18)
[2017-04-15] MEDS: VENLAFAXINE HCL ER 75 MG CAP PO SCH (08:19)
[2017-04-15] MEDS: ACETAMINOPHEN TAB 325 MG TAB PO PRN ×2 (08:19→21:53)
[2017-04-15] MEDS: FAMOTIDINE 20 MG TAB PO SCH ×2 (08:19→21:52)
[2017-04-15] MEDS: GABAPENTIN 300 MG CAP PO SCH (08:19)
[2017-04-15] MEDS: NALTREXONE HCL 50 MG TAB PO SCH (08:19)
[2017-04-15] MEDS: ARIPiprazole 5 MG TAB PO SCH ×2 (08:19→12:37)
[2017-04-15] MEDS: hydrOXYzine PAMOATE 25 MG CAP PO PRN (08:22)
--- NOTE | 2017-04-15 12:05 | P.PN ---
Progress Note - Text SUBJECTIVE: I reviewed the medical record and interviewed Ms. Cota. She is a 26-year-old female well known to this unit from prior admissions. This is her fourth admission this year; she was discharged last on 03/21/2017. She has a history of a bipolar disorder and past suicide attempts/gestures. In addition, she has a history of alcohol and opiate use disorder and quite possibly a borderline personality disorder. According to information in EPS assessment she cut herself because she felt that her family did not love her. She presented to the unit voluntarily following an impulsive act of self-harm where she cut her right wrist with a knife following an argument with her sister. She alleged that she was doing well until the day of admission. Her sister became angry with her and began calling her names. She "blacked out" and did not remember grabbing a knife and cutting her wrist. Her BAT was 0.106 and her UDS was positive for amphetamines. She had a 4 cm laceration that was closed in the EC with 6 sutures. She denied feeling depressed or having thoughts of or suicide. She regrets her action and repeatedly asked to be discharged home today. She denied other symptoms such as auditory or visual hallucinations, ideas reference , thought insertion, thought broadcasting or thought control. OBJECTIVE: She presented as a casually groomed 26-year-old female who wore heavy eye makeup. Her right arm at a splint an Wilson wrap. She made eye contact and attended the interview. She had a blunted facial expression. She showed slight psychomotor retardation but no abnormal involuntary movements. Her speech was spontaneous with a slight decrease in rhythm and volume. She had no articulation difficulties. Her affect was dysphoric but stable and appropriate. She denied suicidal ideation or wishes. She denied homicidal ideation. She denied feeling hopeless, helpless or worthless. She ruminated about discharge. She did not express ideas reference, paranoid ideation or delusional thinking. Her thinking was concrete and associations were coherent and logical. She denied hallucinations and did not appear to be responding to internal stimuli. Orthopedic consult appreciated. ASSESSMENT: She is a 26-year-old female who presented with a self-inflicted laceration to right wrist following an argument with her family while she was intoxicated with alcohol. She has a history of bipolar illness and prior suicide attempts/gestures. She is denying current suicidal ideation, plan or intent. PLAN: Continue inpatient hospitalization. Obtain collateral information from family. Continue the current dose of Abilify 7.5 mg daily and increase gabapentin to 800 mg 3 times a day and Effexor to 150 mg daily. Encourage participation in therapeutic groups and activities. Evaluate clinical status response to treatment daily basis. Anticipate discharge on 04/16/2017.
[2017-04-15] MEDS: PRENATAL VIT-IRON-FOLIC ACID 1 EACH CAP PO SCH (12:37)
[2017-04-15] MEDS: GABAPENTIN 400 MG CAP PO SCH ×2 (16:21→21:52)
[2017-04-15] MEDS: traZODone HCL 50 MG TAB PO PRN (21:53)
[2017-04-16] MEDS: ARIPiprazole 5 MG TAB PO SCH (09:24)
[2017-04-16] MEDS: cloNIDine HCL 0.1 MG TAB PO SCH ×3 (09:30→17:21)
[2017-04-16] MEDS: GABAPENTIN 400 MG CAP PO SCH ×3 (09:30→20:42)
[2017-04-16] MEDS: hydrOXYzine PAMOATE 25 MG CAP PO PRN (09:30)
[2017-04-16] MEDS: FAMOTIDINE 20 MG TAB PO SCH ×2 (09:30→20:42)
[2017-04-16] MEDS: NICOTINE 21MG/24HR PATCH TRANSDERM SCH (09:30)
[2017-04-16] MEDS: NALTREXONE HCL 50 MG TAB PO SCH (09:31)
[2017-04-16] MEDS: VENLAFAXINE HCL ER 150 MG CAP PO SCH (09:32)
[2017-04-16] MEDS: ACETAMINOPHEN TAB 325 MG TAB PO PRN ×3 (09:33→20:43)
[2017-04-16] MEDS: PRENATAL VIT-IRON-FOLIC ACID 1 EACH CAP PO SCH (12:22)
--- NOTE | 2017-04-16 12:55 | P.PN ---
Progress Note - Text SUBJECTIVE: I reviewed the medical record, interviewed Ms. Cota and discussed her treatment and treatment plan during team meeting. She complained of right wrist pain that radiates along her forearm. She also complained of "anxiety"and requested a prescription for 1 mg of Ativan because "the 0.5 mg Ativan don't work anymore. ... I think I have a tolerance." She remains keen on discharge and denies thoughts of or suicide. We are awaiting her deferment hearing. OBJECTIVE: She presented as a casually groomed 26-year-old female who wore heavy eye makeup. Her right arm had a splint and Wilson wrap. She made eye contact and attended the interview. She had a blunted facial expression. She showed slight psychomotor retardation but no abnormal involuntary movements. Her speech was spontaneous with normal rhythm and volume. She had no articulation difficulties. Her affect was blunted but stable and appropriate. She denied suicidal ideation or wishes. She denied homicidal ideation. She denied feeling hopeless, helpless or worthless. She ruminated about discharge, anxiety and need for benzodiazepines. She did not express ideas reference, paranoid ideation or delusional thinking. Her thinking was concrete and associations were coherent and logical. She denied hallucinations and did not appear to be responding to internal stimuli. ASSESSMENT: She is benzodiazepine seeking. She continued to deny suicidal ideation, plan or intent as well as feelings of depression, hopelessness or helplessness. PLAN: Continue inpatient hospitalization until the deferment hearing and discharged home with [facility] aftercare. I do not recommend a benzodiazepine because she has history of alcohol, benzodiazepine and opiate use disorders. Continue the current dose of Abilify 7.5 mg daily and increase gabapentin to 800 mg 3 times a day and Effexor to 150 mg daily. Encourage participation in therapeutic groups and activities. Evaluate clinical status response to treatment daily basis. Anticipate discharge on 04/16/2017.
[2017-04-16] MEDS: traZODone HCL 50 MG TAB PO PRN (20:43)
[2017-04-17] MEDS: ACETAMINOPHEN TAB 325 MG TAB PO PRN ×2 (02:01→08:01)
[2017-04-17] MEDS: cloNIDine HCL 0.1 MG TAB PO SCH ×3 (08:01→16:40)
[2017-04-17] MEDS: ARIPiprazole 5 MG TAB PO SCH (09:35)
[2017-04-17] MEDS: GABAPENTIN 400 MG CAP PO SCH ×2 (09:36→15:55)
[2017-04-17] MEDS: FAMOTIDINE 20 MG TAB PO SCH (09:36)
[2017-04-17] MEDS: NALTREXONE HCL 50 MG TAB PO SCH (09:37)
[2017-04-17] MEDS: VENLAFAXINE HCL ER 150 MG CAP PO SCH (09:37)
[2017-04-17] MEDS: NICOTINE 21MG/24HR PATCH TRANSDERM SCH (09:37)
[2017-04-17] MEDS ORDERED: IBUPROFEN 800 MG TAB PO PRN (10:24)
--- NOTE | 2017-04-17 12:08 | P.DS ---
Providers Date of admission: 04/13/17 07:18 Attending physician: Davis Rebolledo MD Consults: 04/13/17 06:02 Consult Physician Urgent Consulting Provider: Dalton Loo Consult Reason/Comments: flexor tendon laceration, wrist Do you want consulting provider notified?: Yes 04/13/17 08:44 Consult Physician Routine Consulting Provider: Charly Amos Consult Reason/Comments: history and physical Do you want consulting provider notified?: Yes Primary care physician: Lee Valdez - [place] Diagnosis(es) (1) Borderline personality disorder Current Visit: Yes Status: Chronic Priority: High (2) Laceration of left wrist Current Visit: Yes Status: Acute Priority: High (3) Adjustment disorder with mixed disturbance of emotions and conduct Current Visit: No Status: Acute Priority: High (4) Alcohol intoxication Current Visit: No Status: Acute Priority: High (5) Alcohol use disorder Current Visit: No Status: Chronic Priority: High Hospital Course: Mrs. Almaraz is a 26-year-old single female who is well known to this unit from prior psychiatric hospitalizations. She has various diagnoses including bipolar disorder, posttraumatic stress disorder, unspecified anxiety disorder, borderline personality disorder, alcohol use disorder, cocaine use disorder, opiate use disorder and benzodiazepine use disorder. All of her admissions are related to an act of self-harm. She presented to unit involuntarily after cutting her left wrist with a knife. She gave various descriptions of the circumstances resulting in cutting her wrist but in general was related to an argument with her sister. She alleged she was doing well until the argument with her sister. She claims that she does not remember cutting her wrist and talked about losing awareness of her behavior when she becomes enraged. Her BAT was 0.106 and her UDS was positive for amphetamines. Please see admission history dated 04/13/2017. We admitted her to the psychiatric unit under the care of this music writer. We provided a biopsychosocial assessment. The physician in the ED close the 4 cm laceration which 6 sutures. The orthopedic surgeon who evaluated her on the unit, and recommended a splint and Wilson wrap. He also recommended that she follow up with Dr. Monty Gonzales as an outpatient. The medical records tech completed the initial physical exam and medical history and diagnosis status post laceration wound on left arm, history of supraventricular tachycardia, history of gastric sleeve, bariatric surgery, history of cardiac ablation, and tobacco use disorder. We continued her outpatient medications including Abilify 7.5 mg daily, Catapres 0.1 mg by mouth before meals 3 times a day, Pepcid 20 mg by mouth twice a day (in place of Zantac 150 mg by mouth twice a day), gabapentin 800 mg by mouth 3 times a day, Vistaril 50 mg by mouth 4 times a day when necessary for anxiety, naltrexone 50 mg daily for alcohol use disorder, Effexor 150 mg daily and trazodone 50 mg at bedtime when necessary for sleep. She posed no management problem and displayed no episodes of behavioral dyscontrol or self-harm. She denied alcohol withdrawal symptoms. She complained of pain in her left arm partially relieved with Tylenol. She met with a court appointed health care attorney regarding the involuntary hospitalization and agreed to defer the probate hearing. At time of discharge she denied feeling depressed or having thoughts of or suicide. We discussed treatment options and she agreed to referral for dialectical behavioral therapy. She will continue treatment through [facility]. Patient Condition at Discharge: Stable Plan - Discharge Summary New Discharge Prescriptions: New ARIPiprazole [Abilify] 7.5 mg PO DAILY #45 tab hydrOXYzine PAMOATE [Vistaril] 50 mg PO QID PRN #30 cap PRN Reason: Anxiety Nicotine 21Mg/24Hr Patch [Habitrol] 1 patch TRANSDERM DAILY #14 patch traZODone HCL [Desyrel] 50 mg PO HS PRN #30 tab PRN Reason: Insomnia Continue Venlafaxine HCl ER [Effexor XR] 150 mg PO DAILY Naltrexone HCl [Revia] 50 mg PO DAILY 30 Days cloNIDine HCL [Catapres] 0.1 mg PO AC-TID Gabapentin 800 mg PO TID [id number] Acid [-U Capsule (formulary)] 1 cap PO DAILY Ranitidine HCl [Zantac] 150 mg PO BID Changed Ibuprofen [Motrin] 800 mg PO PC-TID PRN #30 PRN Reason: Pain Discontinued ARIPiprazole [Abilify] 5 mg PO HS #30 tab LORazepam [Ativan] 0.5 mg PO BID busPIRone HCl [Buspar] 10 mg PO TID Citalopram Hydrobromide [CeleXA] 40 mg PO QAM Doxepin HCl [SINEquan] 200 mg PO HS Discharge Medication List Venlafaxine HCl ER [Effexor XR] 150 mg PO DAILY 03/19/17 [History] Naltrexone HCl [Revia] 50 mg PO DAILY 30 Days 03/21/17 [Rx] Gabapentin 800 mg PO TID 04/13/17 [History] [id number] Acid [-U Capsule (formulary)] 1 cap PO DAILY [History] Ranitidine HCl [Zantac] 150 mg PO BID 04/13/17 [History] cloNIDine HCL [Catapres] 0.1 mg PO AC-TID 04/13/17 [History] ARIPiprazole [Abilify] 7.5 mg PO DAILY #45 tab 04/17/17 [Rx] Ibuprofen [Motrin] 800 mg PO PC-TID PRN #30 04/17/17 [Rx] Nicotine 21Mg/24Hr Patch [Habitrol] 1 patch TRANSDERM DAILY #14 patch 04/17/17 [ Rx] hydrOXYzine PAMOATE [Vistaril] 50 mg PO QID PRN #30 cap 04/17/17 [Rx] traZODone HCL [Desyrel] 50 mg PO HS PRN #30 tab 04/17/17 [Rx] Follow up Appointment(s)/Referral(s): [facility] [Outside] - 04/24/17 2:00 pm (04/24/17 at 2:00 pm w/ Dr. Vallejo 04/24/17 at 3:30 pm w/ Gaby Jameson) Lee Valdez MD [Primary Care Provider] - 1-2 days Nadeem Gonzales DO [Doctor of Osteopathic Medicine] - 1 Week (Patient may follow-up with Dr. Monty Gonzales at [facility] in 1 week following discharge. ) Patient Instructions/Handouts: Bipolar Disorder (DC), Suicide Prevention for Adults (DC), Borderline Personality Disorder (DC) Activity/Diet/Wound Care/Special Instructions: 1. Keep splint and Wilson wrap over the left wrist wound site clean, dry, and intact 2. Continue with daily dressing changes of the wound site as needed 3. Patient may apply ice and elevate the left wrist for comfort and support as needed 4. Avoid excessive activities in regards to left upper extremity No alcohol or street drugs, activity as tolerated, diet as tolerated, remove firearms from home. Follow up with outpatient psychiatrist as set up at time of discharge. Call crisis line [phone] or [phone] if having thoughts to hurt self or anyone else. Discharge Disposition: HOME SELF-CARE
[2017-04-17] MEDS: PRENATAL VIT-IRON-FOLIC ACID 1 EACH CAP PO SCH (12:36)
--- NOTE | 2017-04-17 15:11 | P.PN ---
Subjective Principal diagnosis: Left wrist wound status post self-inflicted injury; infection at left wrist wound site Patient is a pleasant 26-year-old female who is seen and examined in the psychology unit for further evaluation of her left wrist. She previously self- inflicted a wound to her left wrist on 04/13/2017. She was originally seen and examined for further evaluation of her wound. There were no obvious sign of infection at that time. Incision had been closed with 6 4-0 sutures in the ER. She was being prepared for discharge today. Prior to discharge, nursing noticed some increased redness at the wound site. We're contacted for further evaluation prior to her discharge. Patient states she is not having increased pain at the wound site. She has noticed some increased redness since yesterday at the wound site as well during dressing changes. She continues to have some numbness of the left thumb following her laceration at the left wrist. She continues to have adequate range of motion the left hand, fingers, wrists, and upper extremity without significant difficulty. She currently denies any nausea , vomiting, fever, or chills. She states looking at her wound site during changing her dressing does make her lightheaded. Objective - Vital Signs Vital signs: Vital Signs Temp 99.2 F 04/17/17 13:44 Pulse 97 04/17/17 13:44 Resp 16 04/17/17 13:44 BP 82/50 04/17/17 13:44 Pulse Ox 95 04/13/17 15:00 - Exam Physical Exam: Patient is awake, alert, and oriented 3 Vital signs stable Good chest excursion with deep inspiration and expiration Splint and Wilson wrap placed over the left wrist; dressing is removed during physical examination Nonstick Telfa placed over the left wrist wound site which is removed during physical examination Evidence of an approximately 4 cm volar aspect left wrist wound laceration Wound is currently closed with 6 4-0 nylon sutures that appears to be appropriate Minimal drainage from the wound site; no significant active drainage Signs of apparent infection at the suture sites with some accumulation of purulent fluid at the suture sites I am unable to express active drainage with palpation along the wound site Evidence of erythema and warmth to palpation around the wound site Patient is able to wiggle all fingers and thumb of the left hand without significant difficulty Patient able to perform flexion and extension of all fingers of the left hand without significant difficulty Neurovascularly intact fingers and thumb of the left hand Some numbness to palpation of the left palm Active full range of motion of the left elbow without significant difficulty Some pain with palpation at the volar aspect of the wrist around the wound site Dressing of Adaptic, 4 x 4's, and Wilson wrap is reapplied over the wound site - Labs CBC & Chem 7: 04/13/17 08:15 04/13/17 08:15 Assessment and Plan (1) Open wound of left wrist Status: Acute (2) Acute pain of left wrist Status: Acute (3) Depression Status: Acute Plan: Assessment: Self-inflicted Left volar wound laceration measuring approximately 4 cm Infection of left wrist wound Depression Suicidal ideation Left wrist pain Plan: 1. Patient is currently able to perform flexion and extension of the left thumb and fingers the left hand without significant difficulty. Her movements are somewhat slow but she is able to perform these movements without specific deficit. She does have some numbness of the left palm and towards the thumb. She is vascularly intact at the left hand and digits of the left hand. Sutures remain intact at the left volar aspect wound site and appear to be appropriate. She does have increased erythema and warmth at the wound site. There is also evidence of some accumulation of purulent discharge at the suture sites. At this time, it appears she has an infection at her wound site at the left wrist. The most appropriate plan of care will be for her to undergo incision and drainage of the left wrist with irrigation to clean the wound site. We will plan for incision and drainage today at approximately 1700 hrs. I discussed these issues with the patient at length and I answered all of their questions to the best of my ability and the patient understands. I discussed the risk of surgical intervention and alternative treatment options. The risk of surgical intervention was explained to the patient in detail including but not limited to risk of bleeding, risk of infection, risk and need for further surgery, risk of decreased loss of motion, loss of function, nerve damage, paralysis, heart attack, , as well as the fact that surgery may not alleviate her symptoms. I answered all the patient's questions the best of my ability. The patient would like to proceed forward with surgical intervention and will sign informed consent. She will also be given a prescription for Keflex 500 mg tab every 6 hours for 7 days, dispensed 28 at discharge. Depending on her progress postsurgically, we'll plan for discharge either tonight or tomorrow. We will plan have her follow-up in the office on either 04/19/2017, or 04/22/2017, for further evaluation. He'll plan to follow up with Nazario Macdonald PA-C or Dr. Myles Kamara at [facility]. He should continue to keep dressing of the left wrist pain, dry, and intact. She may elevate and apply ice over the wound site as needed for comfort and support. 2. Psychology and medicine to continue following the patient 3. We will continue to follow patient closely 4. Patient has been discussed in detail with Dr. Myles Kamara and he agrees with this plan Time with Patient: Less than 30
[2017-04-17] MEDS ORDERED: fentaNYL (PF) 50 MCG/ML 2 ML AMP ONE (17:23)
[2017-04-17] MEDS ORDERED: PROPOFOL 10 MG/ML 20 ML VIAL IV ONE (17:23)
[2017-04-17] MEDS ORDERED: LIDOCAINE 1% INJ 10MG/ML (20 ML MDV) ONE (17:23)
[2017-04-17] MEDS ORDERED: MIDAZOLAM 2 MG/2 ML VIAL ONE (17:23)
[2017-04-17] MEDS ORDERED: HYDROmorphone 1 MG/ML 1 ML SYRINGE IVP PRN (18:03)
[2017-04-17] MEDS ORDERED: BENZOCAINE/MENTHOL LOZENG 1 EACH LOZENGE MUCOUS MEM PRN (18:03)
[2017-04-17] MEDS ORDERED: Acetaminophen-Codeine 300-30mg TAB PO PRN (18:04)
--- NOTE | 2017-04-17 18:27 | P.OP ---
Date of Procedure: 04/17/17 Preoperative Diagnosis: Infected left wrist wound Postoperative Diagnosis: Same Superficial wound not invading the deep muscular tissue Procedure(s) Performed: Implants: Anesthesia: GETA Pathology: other (Deep wound cultures sent to pathology) Condition: stable Disposition: PACU Indications for Procedure: Operative Findings: Description of Procedure: BRIEF OPERATIVE NOTE Preoperative Diagnosis: Left wrist wound infection Postoperative Diagnosis: Same, no evidence of deep tissue involvement or significant fluid collection Procedure: Irrigation and excisional debridement of left wrist wound Surgeon: Dr. Kamara World Language Teacher: None Anesthesia: General anesthesia Estimated blood loss: Less than 5 mL Complications: None apparent Components implanted: None Disposition: To recovery room in good stable condition. OPERATIVE INDICATIONS The patient sustained a self-inflicted left wrist wound several days ago and was treated with local wound care with irrigation and debridement and closure of the laceration in the emergency room. She was admitted to the psychiatric unit and has been treated there with local wound care and radial dressing changes. Today she began having some increased pain at her left wrist and increased erythema with some fevers. At her laceration site there is no obvious fluid collection but there were some purulent areas around the sutures. She is not having seen and swelling in her hand or fingers. She is not having evidence of any pain out of proportion with exam. She's not having neuro vascular changes. With her increasing temperatures and worsening status at the incision site we felt that there may be some deep infection and possible fluid collection. We discussed different treatment options ranging from continuing conservative treatment and the possibility of surgical intervention for irrigation and debridement of the area with possible further treatment I discussed the risk palpitations of her injury and the different treatment options with her. We answered her questions best of our ability and she elected to proceed with surgical intervention and signed informed consent. OPERATIVE SUMMARY After discussing all the risks, patient alternatives and benefits at length, the patient elected to proceed with surgical intervention, signed informed consent, and presented for their procedure. The patient was seen and examined in the preoperative holding area and the surgical site was marked. The patient was given antibiotics and brought to the operating room. The patient was sedated and intubated by anesthesia in standard fashion. She remain on her stretcher and her left upper extremity is positioned appropriately on an arm table. We are careful padding when prompted pressure points and keep her airway c-spine good position. She had a nonsterile tourniquet placed over her left upper extremity. It was not utilized in the case. Her left upper extremity prepped and draped in normal standard fashion. An appropriate timeout and keystone protocol was performed and we're able proceed with the surgery. The sutures at the left wrist were removed. The wound was easily opened. There is no apparent fluid collection. We took a deep wound culture which was sent to microbiology. At this point we gave the patient IV vancomycin. The wound is approximately 7 cm in length and enters into the subcutaneous tissue. The end of the palmaris longus was apparent but they did not enter into the flexor tendons or flexor musculature. There is no extension of the laceration to the deep tissues or the flexor bundles. There is no apparent fluid collection. There is some denuded tissue at the margins of the wound and these denuded tissues were excised appropriately. I was able to get good clean surface. The wound was copiously irrigated and suctioned dry with 2 L of antibiotic solution. With clean margins no apparent purulence. We'll proceed with closure. The wound was closed primarily at its margins with 3-0 PDS suture for good reapproximation. The wound was cleaned and dried and dressed with Adaptic 4 x 4 Friedman roll and a bulky wrist dressing. The patient was woken up by anesthesia estimated and brought to recovery room in good stable condition. She will be able to be discharged home today with continued oral antibiotics and close follow-up. I will prescribe her Augmentin and then to see her back in 2 days on Saturday, April 19. She is given appropriate discharge instructions.
[2017-04-17 19:56] VITALS: RESP 20
[2017-04-17 20:32] VITALS: BP 123/65; PULSE 106; TEMP 98.2
[2017-04-17] MEDS ORDERED: GABAPENTIN 400 MG CAP PO SCH (22:00)
[2017-04-18] MEDS ORDERED: NALTREXONE HCL 50 MG TAB PO SCH (09:00)
[2017-04-18] MEDS ORDERED: VENLAFAXINE HCL ER 150 MG CAP PO SCH (09:00)
== END 2017-04-17 20:30 | disposition home or self-care (01) | DRG 883 ==
LOC: EC 01:42 → 3MHU 07:18
PROVIDERS: ADMIT Psychiatry & Neurology Psychiatry; ATTEND Psychiatry & Neurology Psychiatry
PROC: 0HQEXZZ Repair Left Lower Arm Skin, External Approach (ICD-10-PCS; principal; 2017-04-13)
DX: F60.3 Borderline personality disorder (principal); R45.851 Suicidal ideations; F11.23 Opioid dependence with withdrawal; F10.229 Alcohol dependence with intoxication, unspecified; F43.25 Adjustment disorder with mixed disturbance of emotions and conduct; F17.200 Nicotine dependence, unspecified, uncomplicated; F43.10 Post-traumatic stress disorder, unspecified; K21.9 Gastro-esophageal reflux disease without esophagitis; Z79.899 Other long term (current) drug therapy; Z81.8 Family history of other mental and behavioral disorders; Z91.5 Personal history of self-harm; Z98.84 Bariatric surgery status; S61.512A Laceration without foreign body of left wrist, initial encounter
CPT/HCPCS: 80053; 80306; 82075; 84443; 85025; 87070; 87075; 87077; 87186; 87205; 90715

== ENCOUNTER 2017-07-11 18:25 | Inpatient (IN) | payer OTHER ==
[2017-07-11] MEDS ORDERED: SODIUM CHLORIDE 0.9% 1,000 ML IV ONE (19:06)
--- NOTE | 2017-07-11 19:24 | ED ---
Overdose HPI - General Chief Complaint: Overdose Stated Complaint: OVERDOSE Source: patient, family Mode of arrival: wheelchair Limitations: no limitations - History of Present Illness Initial Comments: Patient is a 27-year-old female who presents for evaluation for jerking motion of her entire body. Past medical history as below. Patient stated that she accidentally took 8, 800 mg gabapentin around 10 AM this morning. Shortly after that, she developed full body jerking motions and states that she loses consciousness with each jerk. She has fallen multiple times secondary to the jerking. She stated that she fell down 6 stairs. There is no loss of consciousness and she was ambulatory after the fall. She is bruising to both of her knees. She also takes Effexor, omeprazole, lithium, Seroquel. She states that she did not take any other medications today. She took her normal dose of lithium and Seroquel last night. Denies any alcohol use, marijuana, cocaine, heroin or any other intoxicants. She comes in because of the constant jerking. She thought that the symptoms would resolve. States that she has a mild headache right now secondary to her fall. But otherwise denies any other symptoms. Denies fever, chills, URI symptoms, visual disturbances, chest pain, shortness of breath, cough, nausea, vomiting, diarrhea, pain or burning with urination. She denies this being a suicide attempt. No suicidal or homicidal ideation. No visual or auditory hallucinations. - Related Data Home Medications Medication Instructions Recorded Confirmed Venlafaxine HCl ER [Effexor XR] 300 mg PO QAM 03/19/17 07/11/17 Gabapentin 800 mg PO TID 04/13/17 07/11/17 ARIPiprazole [Abilify Maintena] 400 mg IM Q28D 07/11/17 07/11/17 [place]a Carbonate 600 mg PO HS 07/11/17 07/11/17 Loratadine [Claritin] 10 mg PO DAILY 07/11/17 07/11/17 Omeprazole 20 mg PO BID 07/11/17 07/11/17 QUEtiapine [SEROquel] 200 mg PO HS 07/11/17 07/11/17 Allergies Allergy/AdvReac Type Severity Reaction Status Date / Time No Known Allergies Allergy Verified 07/11/17 18:42 Review of Systems ROS Statement: Those systems with pertinent positive or pertinent negative responses have been documented in the HPI. ROS Other: All systems not noted in ROS Statement are negative. Past Medical History Past Medical History: Supraventricular Tachycardia (SVT) Additional Past Medical History / Comment(s): history of sciatica injury 2yrs/. gastric sleeve/ 2 yrs/ was 378lbs and went down to 130 done at [facility] History of Any Multi-Drug Resistant Organisms: None Reported Past Surgical History: Bariatric Surgery, Cardiac Ablation Additional Past Surgical History / Comment(s): gastric sleeve, heart surgery ( unknown) Past Anesthesia/Blood Transfusion Reactions: No Reported Reaction Past Psychological History: Anxiety, Bipolar, Depression, Panic Disorder Smoking Status: Current every day smoker Past Alcohol Use History: Abuse, Daily Past Drug Use History: Marijuana, Prescription Drug Abuse - Past Family History Father History Unknown: Yes Mother History Unknown: Yes Sister(s) Additional Family Medical History / Comment(s): Sister had SVT General Exam Limitations: no limitations General appearance: alert, in no apparent distress, other (Has intermittent jerking to her bilateral upper and lower extremities.) Head exam: Present: atraumatic, normocephalic, normal inspection, other (No signs of head trauma) Eye exam: Present: normal appearance, PERRL, EOMI, other (Those are 4 mm equal round and reactive to light and accommodation.). Absent: scleral icterus, conjunctival injection, periorbital swelling ENT exam: Present: normal exam, mucous membranes dry Neck exam: Present: normal inspection, other (No midline cervical spine tenderness. AOx3 and cleared c spine clinically.). Absent: tenderness, meningismus, lymphadenopathy Respiratory exam: Present: normal lung sounds bilaterally. Absent: respiratory distress, wheezes, rales, rhonchi, stridor Cardiovascular Exam: Present: regular rate, normal rhythm, normal heart sounds. Absent: systolic murmur, diastolic murmur, rubs, gallop, clicks GI/Abdominal exam: Present: soft, normal bowel sounds, other (Bowel sounds are not hypo-or hyperactive. Soft abdomen. No peritoneal signs.). Absent: distended, tenderness, guarding, rebound, rigid Extremities exam: Present: normal inspection, full ROM, normal capillary refill. Absent: tenderness, pedal edema, joint swelling, calf tenderness Back exam: Present: normal inspection Neurological exam: Present: alert, oriented X3, CN II-XII intact, reflexes normal, other (Cranial nerves II through XII grossly intact without focal neurological deficits. Alert and oriented 3. Moves all 4 charities. L4 and S1 reflexes are equal and intact. No hyperreflexia. Warm extremities. Sensation intact in all 4 charities. Good strength to the upper and lower extremities. No ataxia of the upper charities bilaterally. Will occasionally have myoclonic jerks.) Psychiatric exam: Present: normal affect, normal mood Skin exam: Present: warm, dry, intact, normal color. Absent: rash Course Vital Signs 07/11/17 07/11/17 07/11/17 18:38 20:00 20:08 Temperature 98.2 F Pulse Rate 95 113 H 122 H Respiratory 18 22 20 Rate Blood Pressure 125/88 147/67 144/64 O2 Sat by Pulse 100 100 100 Oximetry 07/11/17 07/11/17 20:26 20:54 Temperature Pulse Rate 109 H 92 Respiratory 16 Rate Blood Pressure 126/60 117/59 O2 Sat by Pulse 99 95 Oximetry Medical Decision Making - Medical Decision Making 1899: Patient is a 27 year old female presents for evaluation for myoclonic jerks. Stated that they started this afternoon. Took 8, 800 mg of Neurontin around 10 AM. Denies any other coingestions. No suicidal thoughts. Discussed the case with poison control. Agrees with getting CBC, CMP, acetaminophen level , salicylate level, lithium level, alcohol level, EKG, urinalysis and urine test. No medical interventions at this time. 1921: Reviewed EKG. Normal sinus rhythm at 80. [place] 140. QRS 84. QTc 410. No ST changes. 1999: Called into the room by staff for the patient having seizure-like activity. At bedside, she was tachycardic in the 110s, not hypoxic, normal blood pressure. Ordered 1 mg IV Ativan which was administered and seizure stopped. Patient responding to painful stimuli. Postictal. Reviewed laboratory studies at that time. No acute abnormality. Tox screen/salicylates/ acetaminophen WNL. Litium level 0.3. -CT head and neck reveal no acute abnormality. -Reevaluated the patient after returning from CT. She remained postictal but responds to painful stimuli and will open her eyes. Discussed the entire workup with the mother at bedside. I discussed the case with poison control. Discussed the events and all of her workup. Are not recommending anything further to her workup at this time. Will admit. 1929: I discussed the case with Dr. Pham. Agrees with admission. We'll consult neurology. No further orders requested. - Lab Data Result diagrams: 07/11/17 19:25 07/11/17 19:25 Lab Results 07/11/17 07/11/17 07/11/17 Range/Units 19:00 19:00 19:25 WBC (3.8-10.6) k/uL RBC (3.80-5.40) m/uL Hgb (11.4-16.0) gm/dL Hct (34.0-46.0) % MCV (80.0-100.0) fL MCH (25.0-35.0) pg MCHC (31.0-37.0) g/dL RDW (11.5-15.5) % Plt Count (150-450) k/uL Neutrophils % % Lymphocytes % % Monocytes % % Eosinophils % % Basophils % % Neutrophils # (1.3-7.7) k/uL Lymphocytes # (1.0-4.8) k/uL Monocytes # (0-1.0) k/uL Eosinophils # (0-0.7) k/uL Basophils # (0-0.2) k/uL Sodium 143 (137-145) mmol/L Potassium 3.9 (3.5-5.1) mmol/L Chloride 110 H (98-107) mmol/L Carbon Dioxide 24 (22-30) mmol/L Anion Gap 9 mmol/L BUN 8 (7-17) mg/dL Creatinine 0.60 (0.52-1.04) mg/dL Est GFR (MDRD) Af Amer >60 (>60 ml/min/1.73 sqM) Est GFR (MDRD) Non-Af >60 (>60 ml/min/1.73 sqM) Glucose 130 H (74-99) mg/dL Calcium 9.3 (8.4-10.2) mg/dL Magnesium 2.0 (1.6-2.3) mg/dL Total Bilirubin 0.2 (0.2-1.3) mg/dL AST 26 (14-36) U/L ALT 33 (9-52) U/L Alkaline Phosphatase 49 (38-126) U/L Total Protein 6.0 L (6.3-8.2) g/dL Albumin 3.8 (3.5-5.0) g/dL Urine Color Yellow Urine Appearance Clear (Clear) Urine pH 6.0 (5.0-8.0) Ur Specific [place] 1.015 (1.001-1.035) Urine Protein Negative (Negative) Urine Glucose (UA) Negative (Negative) Urine Ketones Negative (Negative) Urine Blood Moderate H (Negative) Urine Nitrite Positive H (Negative) Urine Bilirubin Negative (Negative) Urine Urobilinogen <2.0 (<2.0) mg/dL Ur Leukocyte Esterase Small H (Negative) Urine RBC 30 H (0-5) /hpf Urine WBC 11 H (0-5) /hpf Ur Squamous Epith Cells 1 (0-4) /hpf Urine Bacteria Many H (None) /hpf Hyaline Casts 1 (0-2) /lpf Urine HCG, Qual Not Detected (Not Detectd) Salicylates <1.0 mg/dL Urine Opiates Screen Not Detected (NotDetected) Ur Oxycodone Screen Not Detected (NotDetected) Urine Methadone Screen Not Detected (NotDetected) Ur Propoxyphene Screen Not Detected (NotDetected) Acetaminophen <10.0 ug/mL Ur Barbiturates Screen Not Detected (NotDetected) U Tricyclic Antidepress Not Detected (NotDetected) Ur Phencyclidine Scrn Not Detected (NotDetected) Ur Amphetamines Screen Not Detected (NotDetected) U Methamphetamines Scrn Not Detected (NotDetected) U Benzodiazepines Scrn Not Detected (NotDetected) Octa 0.3 mmol/L Urine Cocaine Screen Not Detected (NotDetected) U Marijuana (THC) Screen Not Detected (NotDetected) Serum Alcohol <10 mg/dL 07/11/17 Range/Units 19:25 WBC 7.5 (3.8-10.6) k/uL RBC 3.95 (3.80-5.40) m/uL Hgb 11.7 (11.4-16.0) gm/dL Hct 35.6 (34.0-46.0) % MCV 90.2 (80.0-100.0) fL MCH 29.7 (25.0-35.0) pg MCHC 32.9 (31.0-37.0) g/dL RDW 13.7 (11.5-15.5) % Plt Count 189 (150-450) k/uL Neutrophils % 75 % Lymphocytes % 16 % Monocytes % 5 % Eosinophils % 1 % Basophils % 1 % Neutrophils # 5.6 (1.3-7.7) k/uL Lymphocytes # 1.2 (1.0-4.8) k/uL Monocytes # 0.4 (0-1.0) k/uL Eosinophils # 0.1 (0-0.7) k/uL Basophils # 0.0 (0-0.2) k/uL Sodium (137-145) mmol/L Potassium (3.5-5.1) mmol/L Chloride (98-107) mmol/L Carbon Dioxide (22-30) mmol/L Anion Gap mmol/L BUN (7-17) mg/dL Creatinine (0.52-1.04) mg/dL Est GFR (MDRD) Af Amer (>60 ml/min/1.73 sqM) Est GFR (MDRD) Non-Af (>60 ml/min/1.73 sqM) Glucose (74-99) mg/dL Calcium (8.4-10.2) mg/dL Magnesium (1.6-2.3) mg/dL Total Bilirubin (0.2-1.3) mg/dL AST (14-36) U/L ALT (9-52) U/L Alkaline Phosphatase (38-126) U/L Total Protein (6.3-8.2) g/dL Albumin (3.5-5.0) g/dL Urine Color Urine Appearance (Clear) Urine pH (5.0-8.0) Ur Specific [place] (1.001-1.035) Urine Protein (Negative) Urine Glucose (UA) (Negative) Urine Ketones (Negative) Urine Blood (Negative) Urine Nitrite (Negative) Urine Bilirubin (Negative) Urine Urobilinogen (<2.0) mg/dL Ur Leukocyte Esterase (Negative) Urine RBC (0-5) /hpf Urine WBC (0-5) /hpf Ur Squamous Epith Cells (0-4) /hpf Urine Bacteria (None) /hpf Hyaline Casts (0-2) /lpf Urine HCG, Qual (Not Detectd) Salicylates mg/dL Urine Opiates Screen (NotDetected) Ur Oxycodone Screen (NotDetected) Urine Methadone Screen (NotDetected) Ur Propoxyphene Screen (NotDetected) Acetaminophen ug/mL Ur Barbiturates Screen (NotDetected) U Tricyclic Antidepress (NotDetected) Ur Phencyclidine Scrn (NotDetected) Ur Amphetamines Screen (NotDetected) U Methamphetamines Scrn (NotDetected) U Benzodiazepines Scrn (NotDetected) Octa mmol/L Urine Cocaine Screen (NotDetected) U Marijuana (THC) Screen (NotDetected) Serum Alcohol mg/dL Disposition Clinical Impression: Gabapentin overdose, Seizure Disposition: [facility] Condition: Good Referrals: None,Stated [Primary Care Provider] - 1-2 days Decision to Admit Reason: Admit from EC
[2017-07-11 19:36] LABS: Appearance,Urine Clear (Clear); Bacteria,Urine Many /hpf; Bilirubin,Urine Negative (Negative); Glucose,Urine (UA) Negative (Negative); Ketones,Urine Negative (Negative); Leukocyte Esterase,Urine Small (Negative); Nitrite,Urine Positive (Negative); Particle Count 6409; Protein,Urine Negative (Negative); RBC,Urine 30 /hpf (0-5); Specific Gravity,Urine 1.015 (1.001-1.035); Squamous Epithelial Cell,Urine 1 /hpf (0-4); UA Billing (MACRO vs. MICRO) MICRO; Urobilinogen,Urine <2.0 mg/dL (<2.0); WBC,Urine 11 /hpf (0-5)
[2017-07-11 20:02] LABS: Basophils % (A) 1 %; CH 30.2; CHCM 33.6; Eosinophils # (A) 0.1 k/uL (0-0.7); Eosinophils % (A) 1 %; HCT 35.6 % (34.0-46.0); HGB 11.7 gm/dL (11.4-16.0); Luc % (Auto) 1; Lymphocytes # (A) 1.2 k/uL (1.0-4.8); Lymphocytes % (A) 16 %; MCH 29.7 pg (25.0-35.0); MCHC 32.9 g/dL (31.0-37.0); MCV 90.2 fL (80.0-100.0); Mean Platelet Volume 9.3; Monocytes # (A) 0.4 k/uL (0-1.0); Monocytes % (A) 5 %; Neutrophils # (A) 5.6 k/uL (1.3-7.7); Neutrophils % (A) 75 %; RBC 3.95 m/uL (3.80-5.40); RDW 13.7 % (11.5-15.5); WBC 7.5 k/uL (3.8-10.6); WBC (Perox) 7.29
[2017-07-11 20:05] LABS: ALT 33 U/L (9-52); AST 26 U/L (14-36); Acetaminophen <10.0 ug/mL; Alcohol <10 mg/dL; Alkaline Phosphatase 49 U/L (38-126); Anion Gap 9 mmol/L; Blood Urea Nitrogen 8 mg/dL (7-17); Calcium 9.3 mg/dL (8.4-10.2); Carbon Dioxide 24 mmol/L (22-30); Chloride 110 mmol/L (98-107); Glucose 130 mg/dL (74-99); Lithium 0.3 mmol/L; Non-African American GFR(MDRD) >60 (>60 ml/min/1.73 sqM); Potassium 3.9 mmol/L (3.5-5.1); Salicylate <1.0 mg/dL; Sodium 143 mmol/L (137-145); Total Bilirubin 0.2 mg/dL (0.2-1.3)
[2017-07-11] MEDS ORDERED: LORazepam 2 MG/ML SYRINGE IV STA (20:05)
--- NOTE | 2017-07-11 20:41 | CT ---
EXAMINATION TYPE: CT brain [facility] DATE OF EXAM: 07/11/2017 COMPARISON: NONE HISTORY: Overdose, seizure and fall down stairs. CT DLP: 1675.[address] Brain: Unenhanced CT of the brain was performed. The ventricles, basal cisterns and sulci overlying the cerebral convexities demonstrate a normal appe arance. There is no evidence for intracranial hemorrhage or sulcal effacement. No mass effects are seen. If symptoms persist consider MRI. Osseous calvarium is intact. IMPRESSION: No acute intracranial process CT Cervical Spine: Unenhanced CT of the cervical spine was performed with bone and soft tissue window settings submitted . Coronal and sagittal reconstruction is obtained. There is normal alignment and prevertebral soft tissues. I do not see evidence for fracture or sublu xation. No significant degenerative changes are present. The lung apices are clear. IMPRESSION: No evidence for acute fracture or subluxation of the cervical spine.
[2017-07-11] MEDS ORDERED: NALOXONE 0.4 MG/ML 1 ML VIAL IV PRN (21:33)
[2017-07-11 23:15] VITALS: BMI 27.3
--- NOTE | 2017-07-11 23:53 | P.HPIM ---
History of Present Illness H&P Date: 07/11/17 Chief Complaint: Jerky movements and seizure Patient with jerky movement and seizures: This patient is a 27 years old female with no significant past medical history except for bipolar disorder for which she takes multiple psych medication, most of the information was obtained on the mother due to the patient altered mental status According to her mother the patient took 2 days worth of medication this morning for no clear reason she stated that she did not sleep well meaning the patient the night before and she got confused, she has new medication added 2 weeks ago which was lithium but the rest ofmedication she is taking for quite sometime with no problems she has been never had this before today hours after she took the medication she started having jerking movements all across her body with feeling of losing consciousness or gait was wobbly and indeed she fell with no apparent injury but they got concerned and they came to the emergency room. in the emergency room she had seizure with tonic-clonic movement lasting few seconds and after which she became extremely sleepy and difficult to arouse, according to her mother no change in her daily habits in the last few weeks she was not complaining of any symptoms in fact were preparing to head up to [facility]. Review of Systems ROS unobtainable: due to mental status Neurological: Reports ataxia, Reports seizures Past Medical History Past Medical History: Supraventricular Tachycardia (SVT) Additional Past Medical History / Comment(s): history of sciatica injury 2yrs/. gastric sleeve/ 2 yrs/ was 378lbs and went down to 130 done at [facility]. Bipolar disorder History of Any Multi-Drug Resistant Organisms: None Reported Past Surgical History: Bariatric Surgery, Cardiac Ablation Additional Past Surgical History / Comment(s): gastric sleeve, heart surgery ( unknown) Past Anesthesia/Blood Transfusion Reactions: No Reported Reaction Smoking Status: Current every day smoker - Past Family History Father History Unknown: Yes Mother History Unknown: Yes Sister(s) Additional Family Medical History / Comment(s): Sister had SVT Medications and Allergies Home Medications Medication Instructions Recorded Confirmed Type Venlafaxine HCl ER [Effexor XR] 300 mg PO QAM 03/19/17 07/11/17 History Gabapentin 800 mg PO TID 04/13/17 07/11/17 History ARIPiprazole [Abilify Maintena] 400 mg IM Q28D 07/11/17 07/11/17 History [place] Carbonate 600 mg PO HS 07/11/17 07/11/17 History Loratadine [Claritin] 10 mg PO DAILY 07/11/17 07/11/17 History Omeprazole 20 mg PO BID 07/11/17 07/11/17 History QUEtiapine [SEROquel] 200 mg PO HS 07/11/17 07/11/17 History Allergies Allergy/AdvReac Type Severity Reaction Status Date / Time No Known Allergies Allergy Verified 07/11/17 18:42 Physical Exam Vitals: Vital Signs Temp Pulse Resp BP Pulse Ox 07/11/17 22:29 97.5 F L 81 16 102/57 98 07/11/17 20:54 92 16 117/59 95 07/11/17 20:26 109 H 126/60 99 07/11/17 20:08 122 H 20 144/64 100 07/11/17 20:00 113 H 22 147/67 100 07/11/17 18:38 98.2 F 95 18 125/88 100 Intake and Output 07/11/17 07/11/17 07/12/17 14:59 22:59 06:59 Other: Weight 74.389 kg 74.389 kg Patient Weight 07/12/17 06:59 Weight 74.389 kg - Constitutional General appearance: average body habitus - EENT Eyes: PERRLA, no poor dentition, normal appearance Ears: bilateral: normal - Neck Neck: no lymphadenopathy, no rigidity, no thyromegaly Carotids: bilateral: upstroke normal - Respiratory Respiratory: bilateral: CTA - Cardiovascular Rhythm: regular Heart sounds: normal: S1, S2 Abnormal Heart Sounds: no systolic murmur, S3 Gallop - Gastrointestinal General gastrointestinal: normal bowel sounds - Integumentary Integumentary: no cellulitis, no cyanotic, no jaundiced, normal, normal turgor - Neurologic Limited due to her mental status patient has GCS of 3. Results CBC & Chem 7: 07/11/17 19:25 07/11/17 19:25 Labs: Abnormal Lab Results - Last 24 Hours (Table) 07/11/17 07/11/17 Range/Units 19:00 19:25 Chloride 110 H (98-107) mmol/L Glucose 130 H (74-99) mg/dL Total Protein 6.0 L (6.3-8.2) g/dL Urine Blood Moderate H (Negative) Urine Nitrite Positive H (Negative) Ur Leukocyte Esterase Small H (Negative) Urine RBC 30 H (0-5) /hpf Urine WBC 11 H (0-5) /hpf Urine Bacteria Many H (None) /hpf Assessment and Plan (1) Accidental medication overdose Narrative/Plan: According to the mother the patient took 2 days worth of her daily medication today according to mother the patient stated she was sleepless night before and she got confused no indication for in interventional overdose, in fact they were preparing to head up [facility] today. Poison control was contacted and accommodation is monitoring. i will monitor the patient, stop all medication for now, lithium level is normal. Status: Acute (2) Seizure Narrative/Plan: This likely related to medication effects and interactions she is on multiple psych medications that can cause seizures along with other mental status changes , lithium was started recently 2 weeks ago so it could be a culprit. Patient is currently in post ictal state was extreme obtundation we will start monitoring her and performing neurochecks and obtaining vital signs frequently. Patient received Ativan we'll continue Ativan as needed for seizures, I will consult neurology, patient was history of a alcohol abuse however she is sober for 2 weeks according to her mother and in fact she is on probation but her mother, so I less likely the cause of her seizures and no suspicion of withdrawal symptoms. We will hold all her medication for now. Status: Acute (3) Alcohol use disorder Narrative/Plan: History of alcohol abuse per her mother and she is on probation currently sober for 2 weeks but her mother Status: Chronic (4) Bipolar 1 disorder Narrative/Plan: Patient is on multiple psychiatric medication and lithium was added recently we will consult psychiatriy once the patient is awake Status: Acute (5) Altered mental status Narrative/Plan: Patient originally was feeling of impending doom and ataxia per her mother she had a fall with no apparent injury her computed tomography scan of the head is normal Status: Acute Time with Patient: Greater than 30
[2017-07-12] MEDS ORDERED: LORazepam 2 MG/ML SYRINGE IV PRN (00:34)
--- NOTE | 2017-07-12 12:19 | P.PN ---
Subjective Principal diagnosis: Patient is seen and examined in follow-up for unintentional drug overdose and seizure 27-year-old female with no significant past medical history except for bipolar disorder. She reports that after an all night or she gets confused and took her medications twice which includes Effexor, Seroquel, and lithium. After which the mother has noticed some twitches and abnormal movements in her daughters upper extremities and some unsteady gait. Eventually the patient has fell off the stairs and hit her head and was twitching and patience her upper extremities the mother was concerned for which she brought her to the hospital. While in the emergency department the patient had another attack of twitching and contractures of upper extremities along with clinching in biting on her teeth with frothing from the mouth, patient later improved after Ativan was found that she bit her tongue without any loss of bowel or bladder control. The patient and her family reports that she never had any seizures before. She denies any drug of abuse. 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 Currently patient seen in her room with her mother at bedside, she denies any changes in her vision changes in hearing denies any chest pain or trouble breathing denies any focal neurologic deficits. She reports very mild frontal headache that is vague 2 out of 10 in severity, nonradiating. She is complaining of left knee pain due to recent fall at home on the stairs Objective - Vital Signs Vital signs: Vital Signs Temp 97.9 F 07/12/17 06:53 Pulse 86 07/12/17 08:00 Resp 14 07/12/17 08:00 BP 109/58 07/12/17 06:53 Pulse Ox 95 07/12/17 06:53 Intake & Output 07/11/17 07/12/17 07/12/17 18:59 06:59 18:59 Weight 74.389 kg 74.389 kg Other: Voiding Method Toilet # Voids 1 Constitutional: Not in acute distress, pleasant, conversant Eyes: Pupils equal round reactive to light ENMT: Normocephalic, atraumatic, oropharynx clear, no erythema/exudate, there is evidence of tongue biting on the left lateral aspect of the tongue with remarks of her teeth Neck: Supple Lungs: Clear to auscultation bilaterally, clear to percussion, normal respiratory effort no use of accessory muscles Cardiovascular: Regular rate and rhythm, no murmurs, no gallops, no rubs, no peripheral leg edema Gastrointestinal: Soft, no tenderness to palpation, no palpable hepatosplenomegally, bowel sounds positive Extremities: No digital cyanosis or clubbing, peripheral pulses palpable and equal over bilateral radial arteries and dorsalis pedis artery, no calf muscle tenderness. Bruising over bilateral knees and left upper third of the leg with some scraping over the right knee. Tenderness to palpation of the left knee, active range of motion of both lower extremities is intact, however complained of tenderness over bilateral knees Psych: Alert, oriented to place, person and time, appropriate affect, intact judgment Neuro: Cranial nerves II-XII grossly intact, finger-nose exam was unremarkable, no focal sensory deficits to touch, strength throughout is grossly intact - Labs CBC & Chem 7: 07/11/17 19:25 07/11/17 19:25 Labs: Abnormal Lab Results - Last 24 Hours (Table) 07/11/17 07/11/17 Range/Units 19:00 19:25 Chloride 110 H (98-107) mmol/L Glucose 130 H (74-99) mg/dL Total Protein 6.0 L (6.3-8.2) g/dL Urine Blood Moderate H (Negative) Urine Nitrite Positive H (Negative) Ur Leukocyte Esterase Small H (Negative) Urine RBC 30 H (0-5) /hpf Urine WBC 11 H (0-5) /hpf Urine Bacteria Many H (None) /hpf Assessment and Plan (1) Accidental medication overdose Narrative/Plan: Poison control was contacted Recommended close monitoring [place] level is within normal range Status: Acute (2) Altered mental status Narrative/Plan: This is due to accidental medication overdose Currently resolved Status: Resolved (3) Seizure Narrative/Plan: 1 attack possibly provoked by accidental medication overdose Rule out any underlying epileptic brain activity Check EEG Await neurology input Computed tomography scan of the head was unremarkable for acute process Seizure precautions Patient counseled regarding avoiding driving or running heavy machinery for 6 months will await further neurology recommendations Status: Acute (4) Bipolar 1 disorder, depressed Narrative/Plan: This is chronic, currently Effexor is on hold due to overdose Status: Chronic (5) DVT prophylaxis Narrative/Plan: Patient is a fall risk, and currently on seizure seizure risk Patient spending most of the time in her bed Heparin Status: Acute Plan: Patient will be monitored and patient for at least 24 hours, await EEG results for further recommendations Patient can resume regular diet for now Time with Patient: Greater than 30
--- NOTE | 2017-07-12 14:02 | XR ---
EXAMINATION TYPE: XR knee limited bilateral DATE OF EXAM: 07/12/2017 CLINICAL HISTORY: Bilateral knee pain and bruising after fall TECHNIQUE: Frontal and lateral views of the right and left knee are obtained. COMPARISON: None. FINDINGS: There is no acute fracture/dislocation evident in either knee. The tri-compartment joint spaces appear within normal limits. The overlying soft tissue appears unremarkable. IMPRESSION: There is no acute fracture or dislocation in either knee.
[2017-07-12] MEDS: HEPARIN SODIUM,PORCINE 5,000 UNIT/ML 1 ML VIAL SQ SCH ×2 (17:36→23:44)
[2017-07-13] MEDS: HEPARIN SODIUM,PORCINE 5,000 UNIT/ML 1 ML VIAL SQ SCH (07:15)
[2017-07-13 07:19] LABS: Basophils % (A) 0 %; CH 30.7; CHCM 32.8; Eosinophils # (A) 0.1 k/uL (0-0.7); Eosinophils % (A) 2 %; HDW 2.66; HGB 11.5 gm/dL (11.4-16.0); Luc # (Auto) 0.09; Luc % (Auto) 2; Lymphocytes # (A) 0.9 k/uL (1.0-4.8); Lymphocytes % (A) 18 %; MCHC 31.9 g/dL (31.0-37.0); Monocytes # (A) 0.2 k/uL (0-1.0); Monocytes % (A) 3 %; Neutrophils # (A) 3.7 k/uL (1.3-7.7); Neutrophils % (A) 74 %; RBC 3.84 m/uL (3.80-5.40); RDW 14.1 % (11.5-15.5); WBC (Perox) 5.03
[2017-07-13 07:35] LABS: Anion Gap 5 mmol/L; Blood Urea Nitrogen 5 mg/dL (7-17); Calcium 8.5 mg/dL (8.4-10.2); Carbon Dioxide 25 mmol/L (22-30); Chloride 114 mmol/L (98-107); Glucose 82 mg/dL (74-99); Non-African American GFR(MDRD) >60 (>60 ml/min/1.73 sqM); Potassium 3.9 mmol/L (3.5-5.1); Sodium 144 mmol/L (137-145)
[2017-07-13 08:36] VITALS: BP 122/76; PULSE 79; RESP 16; TEMP 97.7
--- NOTE | 2017-07-13 08:37 | P.CNNES ---
History of Present Illness Consult date: 07/12/17 Reason for Consult: Patient admitted with drug overdose and jerking movements. History of Present Illness: This patient is a 27-year-old right-handed white female who has a rather extensive psychiatric history. She has a diagnosis of bipolar disorder and is on multiple psychiatric medications. She states she follows up in the [facility] with her psychologist and psychiatrist. Patient states she was with her boyfriend and apparently had a fall in which she had fallen down a flight of stairs. She returned home and was noted by her mother as having unsteady gait and seem to be having some twitching symptoms. The mother was concerned due to the fall whether she may have had some type of head injury. She was brought into the emergency room where she was further evaluated. Apparently in the ER her twitching became quite prominent. Was unclear whether she was having mild clonus or partial seizure. The patient was given Ativan in the ER and her symptoms did seem to improve. She denies any previous history of seizures. The patient apparently told the ER physician that she had taken an overdose of her gabapentin for unknown reasons. She states that she took 8 gabapentin pills at home prior to her fall. Each gabapentin dosage is 800 mg. She is also on multiple other medications including lithium for treatment of bipolar disorder. The patient denies any neck or low back pain at this time. She did complain of a mild bifrontal headache in the ER which she rated as 2/10 in intensity. The patient was seen in the emergency room at [facility] and was sent for computed tomography scan of the brain and cervical spine. CAT scan of brain was reported normal with no acute intracranial process. CAT scan of the cervical spine revealed no evidence for acute fracture or subluxation. Patient was subsequent admitted to the hospital. When questioned as to why she may have overdosed on gabapentin she was unable to give a direct answer. She did develop some jerking motions and it was unclear whether this may have been related to the overdose. The patient was seen today on the medical floor. She is noted to have hyperreflexia most notable in the lower extremities. There is also mild to moderate hyperreflexia in the upper extremities. Patient denies any neck or back pain at this time. We are recommending further evaluation to rule out spinal cord injury in this patient following her recent fall. She'll require MRI of the cervical and lumbar spine to be done as soon as possible. We would recommend a orthopedic spine surgery consultation for the patient as well. Her overall prognosis at this time remains very guarded. Neurology is now been consulted for further evaluation and recommendations. Review of Systems Constitutional: Denies chills, Denies fever Eyes: denies blurred vision, denies pain Ears, nose, mouth and throat: Denies headache, Denies sore throat Cardiovascular: Denies chest pain, Denies shortness of breath Respiratory: Denies cough Gastrointestinal: Denies abdominal pain, Denies diarrhea, Denies nausea, Denies vomiting Genitourinary: Denies dysuria, Denies hematuria Musculoskeletal: Denies myalgias Integumentary: Denies pruritus, Denies rash Neurological: Reports confusion, Reports gait dysfunction, Reports headaches, Reports seizures, Reports syncope, Reports tremors, Denies numbness, Denies weakness Psychiatric: Reports anxiety, Reports confusion, Reports depression, Reports suicidal ideation Endocrine: Denies fatigue, Denies weight change Past Medical History Past Medical History: Supraventricular Tachycardia (SVT) Additional Past Medical History / Comment(s): history of sciatica injury 2yrs/. gastric sleeve/ 2 yrs/ was 378lbs and went down to 130 done at [facility]. Bipolar disorder History of Any Multi-Drug Resistant Organisms: None Reported Past Surgical History: Bariatric Surgery, Cardiac Ablation Additional Past Surgical History / Comment(s): gastric sleeve, heart surgery ( unknown) Past Anesthesia/Blood Transfusion Reactions: No Reported Reaction Smoking Status: Current every day smoker - Past Family History Father History Unknown: Yes Mother History Unknown: Yes Sister(s) Additional Family Medical History / Comment(s): Sister had SVT Medications and Allergies Home Medications Medication Instructions Recorded Confirmed Type Venlafaxine HCl ER [Effexor XR] 300 mg PO QAM 03/19/17 07/11/17 History Gabapentin 800 mg PO TID 04/13/17 07/11/17 History ARIPiprazole [Abilify Maintena] 400 mg IM Q28D 07/11/17 07/11/17 History [place] Carbonate 600 mg PO HS 07/11/17 07/11/17 History Loratadine [Claritin] 10 mg PO DAILY 07/11/17 07/11/17 History Omeprazole 20 mg PO BID 07/11/17 07/11/17 History QUEtiapine [SEROquel] 200 mg PO HS 07/11/17 07/11/17 History Allergies Allergy/AdvReac Type Severity Reaction Status Date / Time No Known Allergies Allergy Verified 07/11/17 18:42 Physical Examination - Vital Signs Vital Signs: Vital Signs Temp Pulse Pulse Resp BP BP Pulse Ox 07/12/17 21:13 89 07/12/17 18:30 97.7 F 89 16 101/52 100 07/12/17 16:46 69 18 07/12/17 16:41 98.3 F 69 18 104/57 97 07/12/17 16:00 91 18 07/12/17 14:38 98.3 F 91 18 86/49 98 07/12/17 08:00 86 14 07/12/17 06:53 97.9 F 86 14 109/58 95 07/11/17 23:40 98 F 98 15 105/68 97 07/11/17 22:29 97.5 F L 81 16 102/57 98 Intake and Output 07/12/17 07/12/17 07/12/17 06:59 14:59 22:59 Other: Voiding Method Toilet Toilet # Voids 1 2 # Bowel Movements 1 Weight 74.389 kg - Constitutional General appearance: average body habitus, cooperative - EENT EENT: PERRL, mucous membranes moist - Respiratory Respiratory: lungs clear, normal breath sounds - Cardiovascular Cardiovascular: regular rate, normal S1, normal S2 Extremities: no peripheral edema bilaterally - Gastrointestinal Gastrointestinal: normoactive bowel sounds - Integumentary Integumentary: normal - Neurologic Cranial nerve examination: PERRL, EOMI, V1/V2/V3 grossly intact, face symmetric , tongue midline, intact gag reflex, intact corneal reflex, normal palatal elevation Speech examination: intact Sensorimotor examination: intact Motor examination - right side: 4/5: biceps, triceps, wrist flexion, wrist extension, environmental compliance engineer, hip flexors, knee extensors, dorsiflexion, toe extension (EHL) , plantarflexion Motor examination - left side: 4/5: biceps, triceps, wrist flexion, wrist extension, environmental compliance engineer, hip flexors, knee extensors, dorsiflexion, toe extension (EHL) , plantarflexion Detailed sensory examination: intact Reflex and gait examination: intact Reflexes: 2+: ankle, bicep, tricep, 3+: knee - Musculoskeletal Musculoskeletal: no pain - Psychiatric Psychiatric: mood/affect appropriate, cooperative Results - Laboratory Findings CBC and BMP: 07/13/17 06:46 07/13/17 06:46 Abnormal Lab Findings: Abnormal Labs 07/11/17 07/11/17 19:00 19:25 Chloride 110 H Glucose 130 H Total Protein 6.0 L Urine Blood Moderate H Urine Nitrite Positive H Ur Leukocyte Esterase Small H Urine RBC 30 H Urine WBC 11 H Urine Bacteria Many H Assessment and Plan (1) Acute encephalopathy Status: Acute Code(s): G93.40 - ENCEPHALOPATHY, UNSPECIFIED (2) Cervical myelopathy Status: Acute Code(s): G95.9 - DISEASE OF SPINAL CORD, UNSPECIFIED (3) Lumbar myelopathy Status: Acute Code(s): G95.9 - DISEASE OF SPINAL CORD, UNSPECIFIED (4) Seizure Status: Acute Code(s): R56.9 - UNSPECIFIED CONVULSIONS (5) Bipolar 1 disorder, depressed Status: Chronic Code(s): F31.9 - BIPOLAR DISORDER, UNSPECIFIED Plan: This patient is a 27-year-old female who has a complex past medical history. She suffers from bipolar disorder and apparently had taken 8 gabapentin pills at home. It is unclear whether this was an intentional or unintentional drug overdose. She was developing some twitching of her body and there was concern from her mother that she may have injured herself. Apparently she had taken a fall earlier Miss[place] flight of stairs. She was brought into the emergency room at [facility] for further evaluation. She underwent a computed tomography scan of the brain and cervical spine results which are noted above. Her neurological examination reveals the patient to have hyperreflexia in both upper and lower extremities. Lower extremities is much more noticeable. There is concern for acute spinal cord trauma from her recent fall. We are recommending MRI of the cervical and lumbar spine for further evaluation. She will likely need a orthopedic spine surgery consultation as well. We will continue close monitoring for any further symptoms to suggest seizure disorder. We will obtain routine EEG. We will place her gabapentin on hold at this time. Would also consider psychiatry consultation for follow-up. Her overall prognosis at this time remains very guarded in light of her recent fall and trauma. We will continue close neurological follow-up of this patient during this admission. Overall prognosis at this time remains guarded. Time with Patient: Greater than 30
--- NOTE | 2017-07-13 12:18 | MR ---
EXAMINATION TYPE: MR lumbar spine wo con DATE OF EXAM: 07/13/2017 COMPARISON: NONE HISTORY: Back pain and history of breast cancer TECHNIQUE: T1 and T2 axial and sagittal images of the lumbar spine are submitted. FINDINGS: There is no abnormal signal seen within the visualized spinal cord or paraspinal soft tissu es. Marrow signal is maintained at all levels. Numerous gallstones. At L1-2 there is no degenerative disc disease, disc herniation, canal stenosis, or foraminal encroach ment. At L2-3 there is no degenerative disc disease, disc herniation, canal stenosis, or foraminal encroach ment. At L3-4 there is no degenerative disc disease, disc herniation, canal stenosis, or foraminal encroach ment. Mild facet arthropathy At L4-5 there is no degenerative disc disease, disc herniation, canal stenosis, or foraminal encroach ment. Moderate facet arthropathy. At L5-S1 there is there is loss of disc signal and central disc bulging but no canal stenosis or fora corrine encroachment. Mild facet arthropathy. IMPRESSION: 1. Mild degenerative disc disease and central disc bulging L5-S1 but no canal stenosis or foraminal e ncroachment. 2. Multilevel facet arthropathy. 3. Numerous gallstones. EXAMINATION TYPE: MR cspine wo con DATE OF EXAM: 07/13/2017 COMPARISON: NONE HISTORY: Back pain and history of breast cancer TECHNIQUE: T1 sagittal and coronal, T2 sagittal, and gradient echo axial views of the cervical spine are submitted. FINDINGS: Similar to significant motion artifact. Marrow signal maintained at all levels. The cranial cervical junction is preserved. There is no abnormal signal seen within the spinal cord or paraspin al soft tissues. At C2-3 there is no disc herniation or canal stenosis. At C3-4 there is there is mild degenerative disc disease and left paracentral disc bulging. No forami nal encroachment or canal stenosis. At C4-5 there is disc herniation or canal stenosis. No foraminal encroachment. At C5-6 there is no disc herniation or canal stenosis. No foraminal encroachment. At C6-7 there is no disc herniation or canal stenosis. No foraminal encroachment. At C7-T1 there is no disc herniation or canal stenosis. No foraminal encroachment. IMPRESSION: 1. Left paracentral disc bulging C3-C4 with no canal stenosis or foraminal encroachment. 2. Assessment of the spinal cord is limited due to significant motion artifact. No obvious areas of a bnormal signal identified. 3. Bone marrow signal is maintained at all levels with no diagnostic evidence of marrow occupying pro cess.
[2017-07-13] MEDS ORDERED: IBUPROFEN 600 MG TAB PO PRN (12:38)
[2017-07-13] MEDS ORDERED: VENLAFAXINE HCL ER 150 MG CAP PO SCH (13:00)
--- NOTE | 2017-07-13 13:26 | EEG ---
DATE OF EE07/12/17 INDICATIONS FOR EXAMINATION: This patient is a 27-year-old female who overdosed on Gabapentin. The patient developed jerking and questionable loss of consciousness with unsteady gait. AGE: 27. EEG FINDINGS: A routine 21 channel awake digital EEG recording was accomplished utilizing the 10-20 international system with bipolar and referential montages. The background activity in the most alert resting state consists of a low to medium amplitude, poorly developed and poorly sustained 6 Hz activity over the posterior head regions. This posterior rhythm attenuates to eye opening. There is a small amount of low amplitude 18-20 Hz beta activity seen maximally over the anterior head regions. Muscle and movement artifact was observed on a few occasions during the tracing. Hyperventilation was not performed. Photic stimulation at flash frequencies of 2-30 Hz produced a minimal occipital driving response. No epileptiform discharges were seen. IMPRESSION: This EEG is moderately abnormal in a diffuse fashion due to slowing of the EEG background. The EEG failed to reveal any focal, lateralized or epileptiform abnormalities. Clinical correlation is recommended. MTDD
--- NOTE | 2017-07-13 14:01 | P.DS ---
Providers Date of admission: 07/11/17 21:33 Expected date of discharge: 07/13/17 Attending physician: Alan Pham MD Consults: 07/11/17 21:33 Consult Physician Routine Consulting Provider: Gisele Smith Consult Reason/Comments: First time seizure, drug overdose Do you want consulting provider notified?: Yes, Notify in am 07/13/17 08:55 Consult Physician Routine Consulting Provider: Luis Villeda Consult Reason/Comments: overdose Do you want consulting provider notified?: Yes 07/13/17 09:07 Consult Physician Routine Consulting Provider: Obinna Kamara Consult Reason/Comments: rule out spine injury Do you want consulting provider notified?: Yes Primary care physician: Stated None - Discharge Diagnosis(es) (1) Accidental medication overdose Current Visit: Yes Status: Acute (2) Altered mental status Current Visit: Yes Status: Resolved Priority: Medium (3) Seizure Current Visit: Yes Status: Resolved Priority: Medium (4) Bipolar 1 disorder, depressed Current Visit: No Status: Chronic Priority: High (5) DVT prophylaxis Current Visit: Yes Status: Acute Hospital Course: 27-year-old female with no significant past medical history except for bipolar disorder. She reports that after spending a night out with boyfriend she gets back home confused and reported taking her medications accidentally twice which includes gabapentine, Effexor, Seroquel, and lithium . After which the mother has noticed some twitches and abnormal movements in her daughters upper extremities and some unsteady gait. Eventually the patient has fell off the stairs and hit her head and was twitching and jerking her upper extremities the mother was concerned for which she brought her to the hospital. While in the emergency department the patient had another attack of twitching and jerking of upper extremities along with clinching in biting on her teeth with frothing from the mouth, patient later improved after Ativan was found that she bit her tongue without any loss of bowel or bladder control. The patient and her family reports that she never had any seizures before. She denies any drug of abuse. 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 Patient is seen and examined today she feels comfortable denies any headache dizziness lightheadedness changes in her vision or hearing, focal neurologic deficits. Patient denies any seizure activity she reports steady gait when ambulating. Patient is eager to go home. Patient continues to deny any suicidal ideation. Neurology evaluated the patient felt that she is having maybe some hyperreflexia in her lower extremity and due to recent fall workup was performed to rule out spinal cord injury, MRI of the cervical and lumbar spine was performed or so eval at to the patient and she was cleared from their standpoint. EEG was performed and did not show any focal neurologic activity suggestive of seizure activities Cardiac monitoring was unremarkable showing normal sinus rhythm Patient labs and vital signs were stable [place] level was within therapeutic range Constitutional: Not in acute distress, pleasant, conversant Eyes: Pupils equal round reactive to light Neck: Supple Lungs: Clear to auscultation bilaterally, clear to percussion, normal respiratory effort no use of accessory muscles Cardiovascular: Regular rate and rhythm, no murmurs, no gallops, no rubs, no peripheral leg edema Gastrointestinal: Soft, no tenderness to palpation, no palpable hepatosplenomegally, bowel sounds positive Extremities: No digital cyanosis or clubbing, no calf muscle tenderness. Bilateral scraping over knees, with intact range of motion Psych: Alert, oriented to place, person and time, appropriate affect, intact judgment Neuro: Cranial nerves II-XII grossly intact, finger-nose exam was unremarkable, no focal sensory deficits to touch, strength throughout is grossly intact, deep tendon reflexes +2 and equal in both knees More than 35 minutes were spent discharging this patient, and more than 50% of the time was spent in counseling the patient and family and in coordinating care. Pertinent Studies: EEG of the brain showed no focal neurologic activity suggestive of seizure MRI of cervical and lumbar spine showed no spinal cord injury Patient Condition at Discharge: Stable Plan - Discharge Summary New Discharge Prescriptions: Continue Venlafaxine HCl ER [Effexor XR] 300 mg PO QAM Gabapentin 800 mg PO TID QUEtiapine [SEROquel] 200 mg PO HS Omeprazole 20 mg PO BID Loratadine [Claritin] 10 mg PO DAILY [place] Carbonate 600 mg PO HS ARIPiprazole [Abilify Maintena] 400 mg IM Q28D Discharge Medication List Venlafaxine HCl ER [Effexor XR] 300 mg PO QAM 03/19/17 [History] Gabapentin 800 mg PO TID 04/13/17 [History] ARIPiprazole [Abilify Maintena] 400 mg IM Q28D 07/11/17 [History] [place] Carbonate 600 mg PO HS 07/11/17 [History] Loratadine [Claritin] 10 mg PO DAILY 07/11/17 [History] Omeprazole 20 mg PO BID 07/11/17 [History] QUEtiapine [SEROquel] 200 mg PO HS 07/11/17 [History] Follow up Appointment(s)/Referral(s): None,Stated [Primary Care Provider] - 1-2 days Yash Smith MD [STAFF PHYSICIAN] - 1 Week Patient Instructions/Handouts: Fall Prevention (GEN) Activity/Diet/Wound Care/Special Instructions: activity as tolerated resume regular diet Discharge Disposition: HOME SELF-CARE
--- NOTE | 2017-07-13 14:34 | P.CNOR ---
History of Present Illness - [facility] Consult date: 07/13/17 Requesting physician: Gisele Smith Consult reason: other (Rule out spinal cord injury status post multiple falls and altered ambulation) History of present illness: Patient is a pleasant 27-year-old female who is well known to our service who is seen and examined for further consultation after consultation was placed for evaluation to rule out spine injury status post multiple falls. She was experiencing some altered ambulation as well. Patient states she accidentally took 8 800 mg pills of gabapentin on 07/11/2017. Shortly after, she started having difficulty with ambulation and started to experience full body jerking motions. The patient and her family states she had fallen multiple times secondary to these jerking motions. She did fall down approximately 6 steps. A member at the bedside states he initially thought the symptoms were due to an overdose on lithium. She denies loss of consciousness at the time of the falls. She was brought to [facility] for further evaluation at that time. While in the emergency department she did experience a seizure with tonic-clonic type movements. Since being admitted, she's been seen and examined by neurology. Following the neurology's consultation, we were consulted for further evaluation. Patient does regularly take gabapentin and lithium. She is known have a diagnosis of bipolar disorder. Patient currently denies any cervical pain, lumbar pain, upper extremity radiculopathy, upper extremity weakness, lower extremity radiculopathy, and lower extremity weakness. She states her gait has returned to normal. She has not experienced any further seizures. She states she feels she is ready for discharge. She feels she has had no subsequent issues since her admittance. Prior to examination today, an MRI of the cervical spine and lumbar spine has been ordered. These reports and imaging have been reviewed prior to physical examination. She states again the bedside today the overdose on gabapentin was accidental. Past Medical History Past Medical History: Supraventricular Tachycardia (SVT) Additional Past Medical History / Comment(s): history of sciatica injury 2yrs/. gastric sleeve/ 2 yrs/ was 378lbs and went down to 130 done at [facility]. Bipolar disorder History of Any Multi-Drug Resistant Organisms: None Reported Past Surgical History: Bariatric Surgery, Cardiac Ablation Additional Past Surgical History / Comment(s): gastric sleeve, heart surgery ( unknown) Past Anesthesia/Blood Transfusion Reactions: No Reported Reaction Smoking Status: Current every day smoker - Past Family History Father History Unknown: Yes Mother History Unknown: Yes Sister(s) Additional Family Medical History / Comment(s): Sister had SVT Medications and Allergies Home Medications Medication Instructions Recorded Confirmed Type Venlafaxine HCl ER [Effexor XR] 300 mg PO QAM 03/19/17 07/11/17 History Gabapentin 800 mg PO TID 04/13/17 07/11/17 History ARIPiprazole [Abilify Maintena] 400 mg IM Q28D 07/11/17 07/11/17 History [place] Carbonate 600 mg PO HS 07/11/17 07/11/17 History Loratadine [Claritin] 10 mg PO DAILY 07/11/17 07/11/17 History Omeprazole 20 mg PO BID 07/11/17 07/11/17 History QUEtiapine [SEROquel] 200 mg PO HS 07/11/17 07/11/17 History Allergies Allergy/AdvReac Type Severity Reaction Status Date / Time No Known Allergies Allergy Verified 07/11/17 18:42 Physical Examination Physical exam: Patient is awake, alert, and oriented 3 Vital signs stable Good chest excursion with deep inspiration and expiration Abdomen soft nontender Examination of lumbar spine reveals skin is intact with no abrasions, aspirations, or bruises; no erythema, purulence or signs of infection Dorsiflexion, plantarflexion, and extensor hallucis longus positive sustained bilaterally Lower extremity strength 5/5 bilaterally Patellar reflex 2+ bilaterally and Achilles reflexes 2+ bilaterally No lower extremity hyperreflexia bilaterally Straight leg test negative bilateral lower extremities Negative Lasegue's test bilaterally No signs or symptoms of DVT; no calf pain No pain with internal and external rotation of the hips bilaterally Examination of the cervical spine reveals skin is intact with no abrasions, aspirations, or bruises; no erythema, purulence or signs of infection Full range of motion of the cervical spine with adequate flexion, extension, and bilateral rotation 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, thumb strength, interosseous strength, biceps strength, triceps strength, and shoulder strength positive sustained bilaterally Upper extremity strength 5/5 bilaterally Biceps reflex 2+ bilaterally and Brachioradialis reflexes 2+ bilaterally No upper extremity hyperreflexia bilaterally Evidence of multiple well-healed lacerations of the forearm of the upper extremity from previous injury Neurovascularly intact Results Pertinent studies: MRI cervical spine: C3-4 left paracentral disc bulge; assessment of the spinal cord limited due to motion but no obvious sign of abnormal signal change; no evidence of significant spinal canal stenosis or neural foraminal stenosis; alignment appears be adequately maintained; no obvious sign of acute fracture MRI of the lumbar spine: L5-S1 mild degenerative disc disease and central disc bulging without evidence of central canal stenosis; overall alignment appears to be adequately maintained; no evidence of spondylolisthesis; the vertebral disc heights appear to be well-maintained; no via sign of acute fracture - Labs Labs: Abnormal Lab Results - Last 24 Hours (Table) 07/13/17 07/13/17 Range/Units 06:46 06:46 Lymphocytes # 0.9 L (1.0-4.8) k/uL Chloride 114 H (98-107) mmol/L BUN 5 L (7-17) mg/dL H & H 07/11/17 07/13/17 Range/Units 19:25 06:46 Hgb 11.7 11.5 (11.4-16.0) gm/dL Hct 35.6 36.0 (34.0-46.0) % Result Diagrams: 07/13/17 06:46 07/13/17 06:46 Assessment and Plan (1) Status post fall Status: Acute (2) Lumbar degenerative disc disease Status: Acute (3) Bulging of cervical intervertebral disc Status: Acute (4) Bulging lumbar disc Status: Acute (5) Accidental medication overdose Status: Acute (6) Seizure Status: Resolved Plan: Assessment: Accidental drug overdose Multiple falls Seizure C3-4 left paracentral disc bulge L5-S1 mild degenerative disc disease and central disc bulging Plan: 1. After further evaluation of the patient, physical examination of the patient , and further reviewing of cervical and lumbar MRIs including imaging and reports, we're not currently planning for further invasive treatment, surgical intervention, or further evaluation of the patient in regards to her cervical spine or lumbar spine. Patient is not currently experiencing cervical pain or lumbar pain. She denies any upper extremity or lower extremity radiculopathy or weakness bilaterally. She currently has active full range of motion of her cervical spine, lumbar spine, upper extremities, lower extremities without difficulty. Imaging does not show evidence of spinal canal stenosis or obvious sign of cord signal change. There is no obvious sign of acute fracture. Patient did have significant change in her overall motor function following her accidental drug overdose on gabapentin. Most likely, these symptoms of difficulty with motor skills and her frequent falls were caused by the drug overdose. It does not appear that her falls have caused any significant acute changes in her cervical spine or lumbar spine. During physical examination, patient does not show any signs of any difficulty with regular range of motion of the cervical spine, lumbar spine, upper extremities, lower extremities. She is not having evidence of significant hyperreflexia of the upper extremities or lower extremities. At this time, we do not feel further invasive treatment would provide any significant relief of her symptoms. We did discuss that she should continue to follow with neurology given her recent seizure. At this time , we'll plan have her follow up on an as-needed basis in regards to her cervical and lumbar spines. 2. Medicine and neurology to continue following the patient 3. From an orthopedic spine standpoint, patient is cleared for discharge 4. Following discharge, patient may follow-up on an as-needed basis with Nazario Macdonald PA-C or Dr. Myles Kamara at [facility] 5. I will discuss this patient in detail with Dr. Myles Kamara Time with Patient: Less than 30
--- NOTE | 2017-07-13 18:09 | P.CN ---
Psychiatric Consult - . Consult:: Date of consultation: 07/13/2017 Reason for consultation: Accidental overdose Identifying data and history of present illness: This patient is a 27 years old female with prior psychiatric history of bipolar disorder who has been admitted to medical floor after accidental overdose. Psych couldn't see the patient because she has been discharged by the time I went to see her. 07/13/17 18:06
[2017-07-13] MEDS ORDERED: LITHIUM CARBONATE 300 MG CAP PO SCH (21:00)
--- NOTE | 2017-07-17 09:36 | CDI ---
In responding to this query, please exercise your independent professional judgment. The [facility] Coding Staff and Clinical Documentation Specialists appreciate your assistance in clarifying documentation, maintaining compliance with coding guidelines, accurately documenting patients condition and capturing severity of illness. The fact that a question is asked does not imply that any particular answer is desired or expected. Communication forms are a method of clarifying documentation and are not made part of the Legal Health Record. Thank you in advance for your clarification. Last Revision, September 2015 Roque Castellanos [address] [facility] [place] [address] Documentation Clarification Form Date: 07/17/2017 9:28:00 AM From: Abeba Robertson Admit Date: 07/11/2017 9:33:00 PM Patient Name: Adelita Cota Visit Number: [id number] Discharge Date: 07/13/17 Dr. Nusrat Roberts Conflicting documentation has been found in the medical record. Per Dr Tomer Smith, he states patient has "acute encephalopathy" in his consult. Per your discharge summary you state "altered mental status". History/Risk Factors: Bipolar disorder, accidental overdose of Gabapentin Treatment: Ativan In your opinion what is the most clinically appropriate diagnosis for this patient? Altered mental status Acute encephalopathy Unable to determine (no explanation for clinical findings) Please document your addendum in your discharge summary in order to capture severity of illness and risk of mortality. FYI: Press F11 to launch patient chart. If you have a question about this query, please contact Cindy Gutierrez, Hands Parter, Roque Castellanos at [phone] between 8am and 5pm. ASH
== END 2017-07-13 14:28 | disposition home or self-care (01) | DRG 917 ==
LOC: EC 18:25 → 5MS5E 21:33
PROVIDERS: ADMIT Internal Medicine; ATTEND Internal Medicine
DX: T42.6X1A Poisoning by other antiepileptic and sedative-hypnotic drugs, accidental (unintentional), initial encounter (principal); G92 Toxic encephalopathy; R56.9 Unspecified convulsions; M51.06 Intervertebral disc disorders with myelopathy, lumbar region; F31.9 Bipolar disorder, unspecified; M50.20 Other cervical disc displacement, unspecified cervical region; R27.0 Ataxia, unspecified; F17.200 Nicotine dependence, unspecified, uncomplicated; F10.10 Alcohol abuse, uncomplicated; F41.0 Panic disorder [episodic paroxysmal anxiety]; F12.10 Cannabis abuse, uncomplicated; R29.6 Repeated falls; Z79.899 Other long term (current) drug therapy; Z98.84 Bariatric surgery status; Z91.81 History of falling; Y92.009 Unspecified place in unspecified non-institutional (private) residence as the place of occurrence of the external cause; W10.9XXA Fall (on) (from) unspecified stairs and steps, initial encounter
CPT/HCPCS: 36415; 70450; 72125; 72141; 72148; 80048; 80053; 80178; 80306; 80320; 81001; 81025; 82075; 83520; 83735; 85025; 93005; 95819; 96361; 96374; 99285

== ENCOUNTER 2017-08-01 01:34 | Inpatient (IN) | payer OTHER ==
[2017-08-01] MEDS ORDERED: SODIUM CHLORIDE 0.9% 1,000 ML IV STA (01:53)
[2017-08-01 02:05] LABS: Basophils # (A) 0.1 k/uL (0-0.2); Basophils % (A) 0 %; CH 29.2; Eosinophils # (A) 0.1 k/uL (0-0.7); Eosinophils % (A) 1 %; HCT 41.4 % (34.0-46.0); HDW 3.24; HGB 12.9 gm/dL (11.4-16.0); Hypochromasia Moderate; Luc # (Auto) 0.57; Luc % (Auto) 3; Lymphocytes # (A) 3.5 k/uL (1.0-4.8); Lymphocytes % (A) 17 %; MCH 29.6 pg (25.0-35.0); MCHC 31.2 g/dL (31.0-37.0); MCV 94.7 fL (80.0-100.0); Mean Platelet Volume 10.2; Monocytes # (A) 0.8 k/uL (0-1.0); Monocytes % (A) 4 %; Neutrophils # (A) 15.5 k/uL (1.3-7.7); Neutrophils % (A) 76 %; RBC 4.37 m/uL (3.80-5.40); RDW 13.8 % (11.5-15.5); WBC 20.5 k/uL (3.8-10.6); WBC (Perox) 21.11
[2017-08-01 02:13] LABS: ALT 21 U/L (9-52); AST 32 U/L (14-36); Acetaminophen <10.0 ug/mL; Alcohol <10 mg/dL; Alkaline Phosphatase 91 U/L (38-126); Anion Gap 29 mmol/L; Blood Urea Nitrogen 10 mg/dL (7-17); Calcium 9.6 mg/dL (8.4-10.2); Chloride 113 mmol/L (98-107); Glucose 210 mg/dL (74-99); Non-African American GFR(MDRD) >60 (>60 ml/min/1.73 sqM); Potassium 3.6 mmol/L (3.5-5.1); Salicylate <1.0 mg/dL; Sodium 148 mmol/L (137-145); Total Bilirubin 0.3 mg/dL (0.2-1.3); Total Protein 7.6 g/dL (6.3-8.2)
[2017-08-01] MEDS ORDERED: LORazepam 2 MG/ML SYRINGE IM STA (02:17)
[2017-08-01 02:31] LABS: Carbon Dioxide 6 mmol/L (22-30)
[2017-08-01] MEDS ORDERED: SODIUM CHLORIDE 0.9% 2,000 ML IV ONE (02:41)
[2017-08-01] MEDS ORDERED: LORazepam 2 MG/ML SYRINGE IV STA (03:10)
--- NOTE | 2017-08-01 03:43 | ED ---
Seizure HPI - General Chief Complaint: Seizure Stated Complaint: seizure Time Seen by Provider: 08/01/17 01:49 Source: family Mode of arrival: wheelchair Limitations: altered mental status - History of Present Illness Initial Comments: This patient is 27-year-old woman who presents to be evaluated for suspected seizure. Patient's history is given by her mother and by her boyfriend. She reportedly had similar episodes about 2 weeks ago. It is reported that she took extra doses of her gabapentin as she likes the way it makes her feel. Family suspects that this causes her to have seizure though, and they observed her to have 2 seizures at home and then another 2 seizures while she was coming here being driven by the boyfriend. The patient has loss of consciousness and becomes rigid and that her tongue tonight.. She did have admission to hospital last week of June for similar episode when she had taken somewhere around 20 doses of gabapentin. Family states that they believe that tonight she took somewhere around 12 doses of gabapentin. The patient is not able to provide any history as she appears to be postictal. MD Complaint: possible seizure -: minutes(s) Description of Episode: loss of consciousness, tonic-clonic movement Witnessed: yes - by bystander Trauma: Yes (Patient bit her tongue) Seizure History: other Place: home Possible Precipitating Event: medication - Related Data Home Medications Medication Instructions Recorded Confirmed Venlafaxine HCl ER [Effexor XR] 300 mg PO QAM 03/19/17 08/01/17 Gabapentin 800 mg PO TID 04/13/17 08/01/17 ARIPiprazole [Abilify Maintena] 400 mg IM Q28D 07/11/17 08/01/17 [place] Carbonate 600 mg PO HS 07/11/17 08/01/17 Loratadine [Claritin] 10 mg PO DAILY 07/11/17 08/01/17 Omeprazole 20 mg PO BID 07/11/17 08/01/17 QUEtiapine [SEROquel] 200 mg PO HS 07/11/17 08/01/17 Allergies Allergy/AdvReac Type Severity Reaction Status Date / Time No Known Allergies Allergy Verified 08/01/17 01:47 Review of Systems ROS Statement: Those systems with pertinent positive or pertinent negative responses have been documented in the HPI. ROS Other: All systems not noted in ROS Statement are negative. Limitations: ROS unobtainable due to patients medical condition Past Medical History Past Medical History: Supraventricular Tachycardia (SVT) Additional Past Medical History / Comment(s): history of sciatica injury 2yrs/. gastric sleeve/ 2 yrs/ was 378lbs and went down to 130 done at [facility]. Bipolar disorder History of Any Multi-Drug Resistant Organisms: None Reported Past Surgical History: Bariatric Surgery, Cardiac Ablation Additional Past Surgical History / Comment(s): gastric sleeve, heart surgery ( unknown) Past Anesthesia/Blood Transfusion Reactions: No Reported Reaction Past Psychological History: Anxiety, Bipolar, Depression, Panic Disorder Smoking Status: Current every day smoker - Past Family History Father History Unknown: Yes Mother History Unknown: Yes Sister(s) Additional Family Medical History / Comment(s): Sister had SVT General Exam Limitations: altered mental status General appearance: obtunded Head exam: Present: atraumatic, normocephalic Eye exam: Present: PERRL. Absent: scleral icterus, conjunctival injection ENT exam: Present: mucous membranes moist, other (Patient has some blood at the angle of the mouth but I was not able to inspect the patient's tongue at initial presentation) Neck exam: Present: normal inspection, full ROM. Absent: tenderness, meningismus Respiratory exam: Present: normal lung sounds bilaterally. Absent: respiratory distress, wheezes, rales, rhonchi, stridor Cardiovascular Exam: Present: tachycardia (Rate is approximately 120 at my exam) , normal heart sounds. Absent: systolic murmur, diastolic murmur, rubs, gallop GI/Abdominal exam: Present: soft. Absent: distended, tenderness, guarding, rebound, mass Extremities exam: Present: normal inspection, normal capillary refill. Absent: pedal edema, calf tenderness Back exam: Absent: vertebral tenderness Neurological exam: Present: altered, CN II-XII intact, reflexes normal. Absent : motor sensory deficit Skin exam: Present: warm, intact, normal color, diaphoretic. Absent: rash Course Vital Signs 08/01/17 08/01/17 08/01/17 01:44 01:58 02:51 Temperature 97.7 F Pulse Rate 131 H 132 H 115 H Respiratory 22 20 18 Rate Blood Pressure 169/77 143/70 121/56 O2 Sat by Pulse 97 100 98 Oximetry Medical Decision Making - Medical Decision Making The patient's mental status is beginning to return to baseline. She was able to respond to some simple questions and she does follow one step commands. There are no apparent neurologic deficits. 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 - Lab Data Result diagrams: 08/01/17 01:45 08/01/17 01:45 Lab Results 08/01/17 08/01/17 08/01/17 Range/Units 01:45 01:45 01:45 WBC 20.5 H (3.8-10.6) k/uL RBC 4.37 (3.80-5.40) m/uL Hgb 12.9 (11.4-16.0) gm/dL Hct 41.4 (34.0-46.0) % MCV 94.7 (80.0-100.0) fL MCH 29.6 (25.0-35.0) pg MCHC 31.2 (31.0-37.0) g/dL RDW 13.8 (11.5-15.5) % Plt Count 294 (150-450) k/uL Neutrophils % 76 % Lymphocytes % 17 % Monocytes % 4 % Eosinophils % 1 % Basophils % 0 % Neutrophils # 15.5 H (1.3-7.7) k/uL Lymphocytes # 3.5 (1.0-4.8) k/uL Monocytes # 0.8 (0-1.0) k/uL Eosinophils # 0.1 (0-0.7) k/uL Basophils # 0.1 (0-0.2) k/uL Hypochromasia Moderate Sodium 148 H (137-145) mmol/L Potassium 3.6 (3.5-5.1) mmol/L Chloride 113 H (98-107) mmol/L Carbon Dioxide 6 L* (22-30) mmol/L Anion Gap 29 mmol/L BUN 10 (7-17) mg/dL Creatinine 0.90 (0.52-1.04) mg/dL Est GFR (MDRD) Af Amer >60 (>60 ml/min/1.73 sqM) Est GFR (MDRD) Non-Af >60 (>60 ml/min/1.73 sqM) Glucose 210 H (74-99) mg/dL Plasma Lactic Acid Wilver 21.1 H* (0.7-2.0) mmol/L Calcium 9.6 (8.4-10.2) mg/dL Total Bilirubin 0.3 (0.2-1.3) mg/dL AST 32 (14-36) U/L ALT 21 (9-52) U/L Alkaline Phosphatase 91 (38-126) U/L Total Protein 7.6 (6.3-8.2) g/dL Albumin 4.5 (3.5-5.0) g/dL Urine HCG, Qual (Not Detectd) Salicylates <1.0 mg/dL Urine Opiates Screen (NotDetected) Ur Oxycodone Screen (NotDetected) Urine Methadone Screen (NotDetected) Ur Propoxyphene Screen (NotDetected) Acetaminophen <10.0 ug/mL Ur Barbiturates Screen (NotDetected) U Tricyclic Antidepress (NotDetected) Ur Phencyclidine Scrn (NotDetected) Ur Amphetamines Screen (NotDetected) U Methamphetamines Scrn (NotDetected) U Benzodiazepines Scrn (NotDetected) [place] mmol/L Urine Cocaine Screen (NotDetected) U Marijuana (THC) Screen (NotDetected) Serum Alcohol <10 mg/dL 08/01/17 08/01/17 08/01/17 Range/Units 01:45 02:03 02:03 WBC (3.8-10.6) k/uL RBC (3.80-5.40) m/uL Hgb (11.4-16.0) gm/dL Hct (34.0-46.0) % MCV (80.0-100.0) fL MCH (25.0-35.0) pg MCHC (31.0-37.0) g/dL RDW (11.5-15.5) % Plt Count (150-450) k/uL Neutrophils % % Lymphocytes % % Monocytes % % Eosinophils % % Basophils % % Neutrophils # (1.3-7.7) k/uL Lymphocytes # (1.0-4.8) k/uL Monocytes # (0-1.0) k/uL Eosinophils # (0-0.7) k/uL Basophils # (0-0.2) k/uL Hypochromasia Sodium (137-145) mmol/L Potassium (3.5-5.1) mmol/L Chloride (98-107) mmol/L Carbon Dioxide (22-30) mmol/L Anion Gap mmol/L BUN (7-17) mg/dL Creatinine (0.52-1.04) mg/dL Est GFR (MDRD) Af Amer (>60 ml/min/1.73 sqM) Est GFR (MDRD) Non-Af (>60 ml/min/1.73 sqM) Glucose (74-99) mg/dL Plasma Lactic Acid Wilver (0.7-2.0) mmol/L Calcium (8.4-10.2) mg/dL Total Bilirubin (0.2-1.3) mg/dL AST (14-36) U/L ALT (9-52) U/L Alkaline Phosphatase (38-126) U/L Total Protein (6.3-8.2) g/dL Albumin (3.5-5.0) g/dL Urine HCG, Qual Not Detected (Not Detectd) Salicylates mg/dL Urine Opiates Screen Not Detected (NotDetected) Ur Oxycodone Screen Not Detected (NotDetected) Urine Methadone Screen Not Detected (NotDetected) Ur Propoxyphene Screen Not Detected (NotDetected) Acetaminophen ug/mL Ur Barbiturates Screen Not Detected (NotDetected) U Tricyclic Antidepress Not Detected (NotDetected) Ur Phencyclidine Scrn Not Detected (NotDetected) Ur Amphetamines Screen Not Detected (NotDetected) U Methamphetamines Scrn Not Detected (NotDetected) U Benzodiazepines Scrn Not Detected (NotDetected) [place] <0.2 mmol/L Urine Cocaine Screen Not Detected (NotDetected) U Marijuana (THC) Screen Not Detected (NotDetected) Serum Alcohol mg/dL - EKG Data -: EKG Interpreted by Sc EKG shows normal: sinus rhythm, axis (Normal), intervals (Normal), QRS complexes (Normal), ST-T waves (Normal) Rate: tachycardia (Rate 117 bpm) Disposition Clinical Impression: Generalized seizure, Overdose Disposition: ADMITTED IP TO THIS [facility] Condition: Fair Referrals: None,Stated [Primary Care Provider] - 1-2 days
[2017-08-01] MEDS ORDERED: NALOXONE 0.4 MG/ML 1 ML VIAL IV PRN (04:48)
[2017-08-01] MEDS: SODIUM CHLORIDE 0.9% 1,000 ML IV SCH ×3 (05:12→18:13)
--- NOTE | 2017-08-01 05:20 | P.HPIM ---
History of Present Illness H&P Date: 08/01/17 Chief Complaint: Seizures 27-year-old female with history of bipolar disorder recently admitted here for possible seizure. She was brought in by her brother due to seizure-like activity. Patient is currently lethargic and not able to provide any history. History obtained from her brother and mother at bedside First episode happened yesterday morning, described as twitching but no loss of consciousness. After that patient had generalized tonic-clonic seizure with loss of consciousness foaming and bleeding from the mouth. No particular prodrome symptoms are described. Apparently she was in usual state of health without any complaints. He drove her to emergency department. In the car she had several seizures on the route to the hospital. On the day of the admission patient refilled her gabapentin approximately 21 tab and 13 tabs missing with suspicion the patient to take them at once since she was left unsupervised. Before that patient was not complaining of any worsening depression, suicidality or any other symptoms. Her brother denies any alcohol or drugs involvement. No headache, fever, chills, vision changes were reported by the patient to her brother lives with her in days prior to the admission. Review of Systems ROS unobtainable: due to mental status Past Medical History Past Medical History: Supraventricular Tachycardia (SVT) Additional Past Medical History / Comment(s): history of sciatica injury 2yrs/. gastric sleeve/ 2 yrs/ was 378lbs and went down to 130 done at [facility]. Bipolar disorder History of Any Multi-Drug Resistant Organisms: None Reported Past Surgical History: Bariatric Surgery, Cardiac Ablation Additional Past Surgical History / Comment(s): gastric sleeve, heart surgery ( unknown) Past Anesthesia/Blood Transfusion Reactions: No Reported Reaction Past Psychological History: Anxiety, Bipolar, Depression, Panic Disorder Smoking Status: Current every day smoker - Past Family History Father History Unknown: Yes Mother History Unknown: Yes Sister(s) Additional Family Medical History / Comment(s): Sister had SVT Medications and Allergies Home Medications Medication Instructions Recorded Confirmed Type Venlafaxine HCl ER [Effexor XR] 300 mg PO QAM 03/19/17 08/01/17 History Gabapentin 800 mg PO TID 04/13/17 08/01/17 History ARIPiprazole [Abilify Maintena] 400 mg IM Q28D 07/11/17 08/01/17 History [place] Carbonate 600 mg PO HS 07/11/17 08/01/17 History Loratadine [Claritin] 10 mg PO DAILY 07/11/17 08/01/17 History Omeprazole 20 mg PO BID 07/11/17 08/01/17 History QUEtiapine [SEROquel] 200 mg PO HS 07/11/17 08/01/17 History Allergies Allergy/AdvReac Type Severity Reaction Status Date / Time No Known Allergies Allergy Verified 08/01/17 01:47 Physical Exam Vitals: Vital Signs Temp Pulse Resp BP Pulse Ox 08/01/17 03:19 110 H 18 135/63 99 08/01/17 02:51 115 H 18 121/56 98 08/01/17 01:58 132 H 20 143/70 100 08/01/17 01:44 97.7 F 131 H 22 169/77 97 Intake and Output 07/31/17 07/31/17 08/01/17 14:59 22:59 06:59 Other: Weight 70.307 kg Patient Weight 08/01/17 06:59 Weight 70.307 kg Patient was found to be lethargic, she opens her eyes when called by name, follows simple commands - EENT Eyes: anicteric sclerae, PERRLA - Neck Neck: no rigidity - Respiratory Respiratory: bilateral: CTA - Cardiovascular Rhythm: regular Heart sounds: normal: S1, S2 - Gastrointestinal General gastrointestinal: normal bowel sounds, no organomegaly, soft, no tenderness - Neurologic Neurologic: CNII-XII intact - Musculoskeletal Musculoskeletal: strength equal bilaterally Patient does not open her mouth sufficiently to be inspected for any tongue bites or other injuries the tongue Results CBC & Chem 7: 08/01/17 01:45 08/01/17 01:45 Labs: Abnormal Lab Results - Last 24 Hours (Table) 08/01/17 08/01/17 08/01/17 Range/Units 01:45 01:45 01:45 WBC 20.5 H (3.8-10.6) k/uL Neutrophils # 15.5 H (1.3-7.7) k/uL Sodium 148 H (137-145) mmol/L Chloride 113 H (98-107) mmol/L Carbon Dioxide 6 L* (22-30) mmol/L Glucose 210 H (74-99) mg/dL Plasma Lactic Acid Wilver 21.1 H* (0.7-2.0) mmol/L Thrombosis Risk Factor Assmnt - DVT/VTE Prophylaxis DVT/VTE Prophylaxis: Mechanical Prophylaxis ordered Assessment and Plan (1) Status epilepticus Narrative/Plan: Seizure precautions Neurologic consultation Aggressive hydration Repeat lactic acid and CPK Discontinue Effexor Status: Acute (2) Acute encephalopathy Narrative/Plan: Neurochecks Hold home medications were now Check lithium level Multiple toxicology results reviewed Status: Acute
[2017-08-01 05:40] LABS: Creatine Kinase 366 U/L (30-135); Lithium <0.2 mmol/L
[2017-08-01 09:28] LABS: ALT 28 U/L (9-52); AST 35 U/L (14-36); Alkaline Phosphatase 61 U/L (38-126); Anion Gap 9 mmol/L; Blood Urea Nitrogen 7 mg/dL (7-17); Calcium 7.9 mg/dL (8.4-10.2); Carbon Dioxide 19 mmol/L (22-30); Chloride 117 mmol/L (98-107); Glucose 78 mg/dL (74-99); Non-African American GFR(MDRD) >60 (>60 ml/min/1.73 sqM); Potassium 3.7 mmol/L (3.5-5.1); Sodium 145 mmol/L (137-145); Total Bilirubin 0.1 mg/dL (0.2-1.3)
[2017-08-01 09:46] LABS: Basophils % (A) 0 %; CH 29.3; CHCM 33.2; Eosinophils % (A) 0 %; HCT 33.5 % (34.0-46.0); HDW 3.37; HGB 11.2 gm/dL (11.4-16.0); Luc # (Auto) 0.14; Luc % (Auto) 1; Lymphocytes # (A) 1.2 k/uL (1.0-4.8); Lymphocytes % (A) 11 %; MCH 29.7 pg (25.0-35.0); MCHC 33.5 g/dL (31.0-37.0); Mean Platelet Volume 8.8; Monocytes # (A) 0.4 k/uL (0-1.0); Monocytes % (A) 3 %; Neutrophils # (A) 8.9 k/uL (1.3-7.7); Neutrophils % (A) 84 %; RBC 3.78 m/uL (3.80-5.40); RDW 13.4 % (11.5-15.5); WBC 10.6 k/uL (3.8-10.6); WBC (Perox) 11.11
[2017-08-01 09:47] LABS: MCV 88.5 fL (80.0-100.0)
--- NOTE | 2017-08-01 10:07 | CT ---
EXAMINATION TYPE: CT brain wo con DATE OF EXAM: 08/01/2017 COMPARISON: NONE HISTORY: 07/11/[address] of the brain was performed. The ventricles, basal cisterns and sulci overlying the cerebral convexities demonstrate a normal appe arance. There is no evidence for intracranial hemorrhage or sulcal effacement. No mass effects are seen. Osseous calvarium is intact. If symptoms persist consider MRI as clinically warranted. IMPRESSION: 1. No acute intracranial process is seen at this time.
[2017-08-01 10:51] LABS: ABG HCO3 19 mmol/L (21-25); ABG PCO2 31 mmHg (35-45); ABG PO2 93 mmHg (83-108)
[2017-08-01 10:52] LABS: ABG Base Excess -5.2 mmol/L; ABG TCO2 20 mmol/L (19-24)
[2017-08-01] MEDS: FAMOTIDINE 20 MG TAB PO SCH ×2 (10:57→20:26)
--- NOTE | 2017-08-01 11:11 | P.PN ---
Progress Note - Text Briefly this is a 27-year-old female that was admitted with status epilepticus after suspected gabapentin overdose, a pronounced leukocytosis and anion gap metabolic acidosis. On my exam the patient was extremely somnolent but was minimally arousable. We'll order a stat CT of the head chest x-ray, repeat stat labs and check blood cultures and neurology has been consulted and EEG has been ordered
--- NOTE | 2017-08-01 11:45 | XR ---
EXAMINATION TYPE: XR chest 1V DATE OF EXAM: 08/01/2017 CLINICAL HISTORY: Leukocytosis per order. Overdose and incoherent per technologist. TECHNIQUE: Single AP portable supine view of the chest is obtained. COMPARISON: Chest x-ray from October 06, 2016 FINDINGS: There is no focal air space opacity, pleural effusion, or pneumothorax seen. The cardiac silhouette size is within normal limits. The osseous structures are intact. IMPRESSION: No acute cardiopulmonary process.
--- NOTE | 2017-08-01 13:22 | P.PN ---
Progress Note - Text Patient is sleeping and not able to be interviewed will return tomorrow to perform psychiatric evaluation, would not restart any of her psychiatric medications at this time.
[2017-08-01] MEDS ORDERED: IBUPROFEN 800 MG TAB PO STA (15:58)
--- NOTE | 2017-08-01 16:16 | P.CNNES ---
History of Present Illness Consult date: 08/01/17 Reason for Consult: Patient with possible seizure activity and obtundation. History of Present Illness: This patient is a 27-year-old right-handed white female who was brought in to the emergency room at [facility] for evaluation of seizure activity. Patient lives at home with her mother and apparently she was noted yesterday evening as having multiple seizure-like events. According to the mother she begins by having jerking movements of the arms and legs. She then went into a 32nd episode of convulsive activity and had bitten her tongue. Apparently she had 5 such episodes at home yesterday. EMS was called to the home and she was brought into the ER for further evaluation. She was seen in the ER by Dr. Randall who ordered a computed tomography scan of the brain. A CAT scan revealed no acute intracranial abnormalities. According to the mother the day of her admission yesterday she had been prescribed 21 pills of gabapentin. Each gabapentin at a dosage of 800 mg. Apparently review of her medication box revealed that 13 tablets of gabapentin were missing. It is felt the patient had overdosed with these pills. She had a similar episode back on 07/11/2017 at which time she overdosed once again on gabapentin. According to the mother she has been on very high dose gabapentin 800 mg 3 capsules daily. She has been suffering with chronic back pain symptoms. This is second attempt of overdose with gabapentin in the last 1 month. The patient has a history of underlying bipolar disorder and does follow with [facility]. We have recommended a psychiatry consultation for the patient during this admission. The patient was lethargic initially but is now more arousable and does follow simple commands. She remains very withdrawn and doesn't appear to be depressed. We will await further recommendations from psychiatry and further management of this condition. Patient has undergone recent MRI of the cervical and lumbar spine during her last admission. Given her current reoccurrence of seizure-like activity we have recommended an MRI of the brain to be done. We have also scheduled her for routine EEG which will be done tomorrow morning. The patient is now resting and does seem to answer some questions appropriately. She still does remain slightly confused. She is now admitted and neurology has been consulted for further evaluation and recommendations. Review of Systems Constitutional: Denies chills, Denies fever Eyes: denies blurred vision, denies pain Ears, nose, mouth and throat: Denies headache, Denies sore throat Cardiovascular: Denies chest pain, Denies shortness of breath Respiratory: Denies cough Gastrointestinal: Denies abdominal pain, Denies diarrhea, Denies nausea, Denies vomiting Genitourinary: Denies dysuria, Denies hematuria Musculoskeletal: Denies myalgias Integumentary: Denies pruritus, Denies rash Neurological: Reports balance difficulties, Reports change in mentation, Reports confusion, Reports convulsions, Reports memory loss, Reports tremors, Denies numbness, Denies weakness Psychiatric: Denies anxiety, Denies depression Endocrine: Denies fatigue, Denies weight change Past Medical History Past Medical History: Seizure Disorder, Supraventricular Tachycardia (SVT) Additional Past Medical History / Comment(s): SVT with cardiac ablation, lumbar DDD, bulging lumbar disc, seizure per family today 08/01/17 and 07/11/17, ETOH abuse, past hx documented cocaine/opiate/benzodiazepine disorder, migraines, sinus problems, past bilateral arm fractures/casted. History of Any Multi-Drug Resistant Organisms: None Reported Past Surgical History: Bariatric Surgery, Cardiac Ablation Additional Past Surgical History / Comment(s): gastric sleeve, EP studies, cardiac ablation for SVT, 03/2017 I &D L wrist. Past Anesthesia/Blood Transfusion Reactions: No Reported Reaction Smoking Status: Current every day smoker - Past Family History Father History Unknown: Yes Mother History Unknown: Yes Sister(s) Additional Family Medical History / Comment(s): Sister had SVT Medications and Allergies Home Medications Medication Instructions Recorded Confirmed Type Venlafaxine HCl ER [Effexor XR] 300 mg PO QAM 03/19/17 08/01/17 History Gabapentin 800 mg PO Q6H 04/13/17 08/01/17 History ARIPiprazole [Abilify Maintena] 400 mg IM Q28D 07/11/17 08/01/17 History Mier Carbonate 600 mg PO HS 07/11/17 08/01/17 History Loratadine [Claritin] 10 mg PO DAILY 07/11/17 08/01/17 History Omeprazole 20 mg PO BID 07/11/17 08/01/17 History QUEtiapine [SEROquel] 200 mg PO HS 08/01/17 08/01/17 History Allergies Allergy/AdvReac Type Severity Reaction Status Date / Time No Known Allergies Allergy Verified 08/01/17 07:11 Physical Examination - Vital Signs Vital Signs: Vital Signs Temp Pulse Pulse Resp BP BP Pulse Ox 08/01/17 12:59 98.6 F 94 18 142/89 98 08/01/17 11:58 98.4 F 83 18 141/67 100 08/01/17 11:00 88 17 133/62 97 08/01/17 10:41 88 17 133/62 97 08/01/17 09:47 97.1 F L 08/01/17 09:30 83 18 152/71 97 08/01/17 08:30 90 18 145/63 98 08/01/17 08:10 86 20 156/74 96 08/01/17 07:20 118 H 20 146/69 96 08/01/17 06:38 97 18 114/63 98 08/01/17 05:51 98 18 106/55 97 08/01/17 03:19 110 H 18 135/63 99 08/01/17 02:51 115 H 18 121/56 98 08/01/17 01:58 132 H 20 143/70 100 08/01/17 01:44 97.7 F 131 H 22 169/77 97 Intake and Output 07/31/17 08/01/17 08/01/17 22:59 06:59 14:59 Other: # Voids 3 Weight 70.307 kg - Constitutional General appearance: average body habitus, cooperative - EENT EENT: PERRL, mucous membranes moist - Respiratory Respiratory: lungs clear, normal breath sounds - Cardiovascular Cardiovascular: regular rate, normal S1, normal S2 Extremities: no peripheral edema bilaterally - Gastrointestinal Gastrointestinal: normoactive bowel sounds - Integumentary Integumentary: normal - Neurologic Cranial nerve examination: anosmic, PERRL, EOMI, VFF, V1/V2/V3 grossly intact, face symmetric, intact gag reflex, intact corneal reflex, normal palatal elevation Speech examination: intact Sensorimotor examination: intact Detailed motor examination: grossly full strength in all extremities Motor examination - right side: 4/5: biceps, triceps, wrist flexion, wrist extension, cs associate, hip flexors, knee extensors, dorsiflexion, toe extension (EHL) , plantarflexion Motor examination - left side: 4/5: biceps, triceps, wrist flexion, wrist extension, cs associate, hip flexors, knee extensors, dorsiflexion, toe extension (EHL) , plantarflexion Detailed sensory examination: intact Reflex and gait examination: intact Reflexes: 2+: ankle, bicep, knee, tricep - Musculoskeletal Musculoskeletal: no pain - Psychiatric Psychiatric: mood/affect appropriate, cooperative Results - Laboratory Findings CBC and BMP: 08/01/17 08:49 08/01/17 08:49 Abnormal Lab Findings: Abnormal Labs 08/01/17 08/01/17 08/01/17 01:45 01:45 01:45 WBC 20.5 H RBC Hgb Hct Neutrophils # 15.5 H ABG pCO2 ABG HCO3 Sodium 148 H Chloride 113 H Carbon Dioxide 6 L* Glucose 210 H Plasma Lactic Acid Wilver 21.1 H* Calcium Total Bilirubin Creatine Kinase Total Protein Albumin 08/01/17 08/01/17 08/01/17 04:44 05:14 08:49 WBC RBC 3.78 L Hgb 11.2 L Hct 33.5 L Neutrophils # 8.9 H ABG pCO2 ABG HCO3 Sodium Chloride Carbon Dioxide Glucose Plasma Lactic Acid Wilver 2.6 H* Calcium Total Bilirubin Creatine Kinase 366 H Total Protein Albumin 08/01/17 08/01/17 08:49 10:07 WBC RBC Hgb Hct Neutrophils # ABG pCO2 31 L ABG HCO3 19 L Sodium Chloride 117 H Carbon Dioxide 19 L Glucose Plasma Lactic Acid Wilver Calcium 7.9 L Total Bilirubin 0.1 L Creatine Kinase Total Protein 6.0 L Albumin 3.2 L Assessment and Plan (1) Status epilepticus Status: Acute Code(s): G40.901 - EPILEPSY, UNSP, NOT INTRACTABLE, WITH STATUS EPILEPTICUS (2) Acute encephalopathy Status: Acute Code(s): G93.40 - ENCEPHALOPATHY, UNSPECIFIED (3) Overdose Status: Acute Code(s): T50.901A - POISONING BY UNSP DRUG/MEDS/BIOL SUBST, ACCIDENTAL, INIT (4) Bipolar 1 disorder, depressed Status: Acute Code(s): F31.9 - BIPOLAR DISORDER, UNSPECIFIED Plan: This patient is a 27-year-old right-handed white female who was admitted hospital with episode of multiple seizures at home. Patient is living at home with her mother. Several of these events were noted by the mother and initially begins with myoclonic jerks. She was having multiple events at home yesterday in which she became convulsive for at least 30 seconds in duration. They seem to occur back to back. She is brought into the emergency room at [facility] for further evaluation. General when a computed tomography scan of the brain which was negative. The patient apparently had overdosed on gabapentin. She was recently prescribed 21 pills and 13 pills were missing. She was taking gabapentin 800 mg 3 times a day. When questioned about possible drug overdose the patient denies this behavior at this time. We will await a EEG to be done tomorrow morning for review. 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 We will await the results of her EEG and we will give further recommendations at that time. Her overall prognosis at this time remains very guarded. Patient should be kept on seizure precautions during this admission. Case was discussed at length with the patient and her mother at bedside. All their questions were answered. She is aware of her guarded condition. Time with Patient: Greater than 30
[2017-08-01 17:10] LABS: Appearance,Urine Cloudy (Clear); Bacteria,Urine Many /hpf; Bilirubin,Urine Negative (Negative); Glucose,Urine (UA) Negative (Negative); Ketones,Urine Negative (Negative); Leukocyte Esterase,Urine Large (Negative); Mucus,Urine Rare /hpf; Nitrite,Urine Negative (Negative); Particle Count 96332; Protein,Urine Negative (Negative); RBC,Urine 14 /hpf (0-5); Specific Gravity,Urine 1.009 (1.001-1.035); Squamous Epithelial Cell,Urine 3 /hpf (0-4); UA Billing (MACRO vs. MICRO) MICRO; Urobilinogen,Urine <2.0 mg/dL (<2.0); WBC,Urine 77 /hpf (0-5)
[2017-08-02] MEDS: SODIUM CHLORIDE 0.9% 1,000 ML IV SCH ×4 (00:54→23:40)
[2017-08-02] MEDS: FAMOTIDINE 20 MG TAB PO SCH ×2 (08:29→21:06)
[2017-08-02 08:52] LABS: Basophils % (A) 0 %; CH 29.2; CHCM 33.3; Eosinophils % (A) 1 %; HDW 3.33; HGB 11.1 gm/dL (11.4-16.0); Luc # (Auto) 0.09; Luc % (Auto) 1; Lymphocytes # (A) 1.2 k/uL (1.0-4.8); Lymphocytes % (A) 15 %; MCH 29.6 pg (25.0-35.0); MCHC 33.7 g/dL (31.0-37.0); Mean Platelet Volume 8.9; Monocytes # (A) 0.3 k/uL (0-1.0); Monocytes % (A) 4 %; Neutrophils # (A) 6.2 k/uL (1.3-7.7); Neutrophils % (A) 79 %; RBC 3.75 m/uL (3.80-5.40); RDW 13.3 % (11.5-15.5); WBC 7.9 k/uL (3.8-10.6); WBC (Perox) 8.25
[2017-08-02 09:03] LABS: Anion Gap 9 mmol/L; Blood Urea Nitrogen 3 mg/dL (7-17); Calcium 8.4 mg/dL (8.4-10.2); Carbon Dioxide 21 mmol/L (22-30); Chloride 113 mmol/L (98-107); Glucose 82 mg/dL (74-99); Non-African American GFR(MDRD) >60 (>60 ml/min/1.73 sqM); Potassium 3.3 mmol/L (3.5-5.1); Sodium 143 mmol/L (137-145)
--- NOTE | 2017-08-02 10:15 | P.PN ---
Subjective Principal diagnosis: a 27-year-old female that presented with altered mental status encephalopathy and status epilepticus secondary to presumed gabapentin overdose , she had a pronounced leukocytosis of 21 and admission with severe gap metabolic acidosis secondary to her status epilepticus. Computed tomography scan of the head was negative for any acute intracranial pathology. Neurology and psychology has been consulted She was more awake today, does not remember me examiners yesterday, eyes any suicidal or homicidal ideation. complaining of feeling tired and fatigued and weak. Her at bedside who has more insight into the patient's underlying possible addiction to Neurontin (that she takes Neurontin to get a high. Otherwise no acute events overnight no seizure-like activities Objective - Vital Signs Vital signs: Vital Signs Temp 99.0 F 08/02/17 07:00 Pulse 82 08/02/17 07:00 Resp 16 08/02/17 07:00 BP 117/68 08/02/17 07:00 Pulse Ox 99 08/02/17 07:00 Intake & Output 08/01/17 08/02/17 08/02/17 18:59 06:59 18:59 Weight 70.307 kg Other: # Voids 5 1 - Exam Constitutional: No acute distress, conversant, pleasant Eyes: Anicteric sclerae, moist conjunctiva, no lid-lag, PERRLA ENMT: NC/AT,Oropharynx clear, no erythema, exudates Neck:Supple, FROM, no masses, or JVD, No carotid bruits; No thyromegaly Lungs: Clear to auscultation, Clear to percussion, Normal respiratory effort, no accessory muscle use Cardiovascular: Heart regular in rate and rhythm, No murmurs, gallops, or rubs no peripheral edema Abdominal: Soft Nontender, nom distended, no guarding, no rebound or rigidity, Normoactive bowel sounds No hepatomegaly, No splenomegaly, No palpable mass No abdominal wall hernia noted Skin: Normal temperature, tone, texture, turgor, No induration No subcutaneous nodules, No rash, lesions, No ulcers Extremities:No digital cyanosis No clubbing, Pedal pulses intact and symmetrical Radial pulses intact and symmetrical Normal gait and station, No calf tenderness Psychiatric: Alert and oriented to person, place and time, Appropriate affect Intact judgement Neuro: Muscles Strength 5/5 in all 4 extremities, Sensation to light touch grossly present throughout, Cranial nerves II-XII grossly intact. No focal sensory deficits - Labs CBC & Chem 7: 08/02/17 08:30 08/02/17 08:30 Labs: Abnormal Lab Results - Last 24 Hours (Table) 08/01/17 08/01/17 08/02/17 Range/Units 10:07 16:30 08:30 RBC 3.75 L (3.80-5.40) m/uL Hgb 11.1 L (11.4-16.0) gm/dL Hct 33.0 L (34.0-46.0) % ABG pCO2 31 L (35-45) mmHg ABG HCO3 19 L (21-25) mmol/L Potassium (3.5-5.1) mmol/L Chloride (98-107) mmol/L Carbon Dioxide (22-30) mmol/L BUN (7-17) mg/dL Urine Appearance Cloudy H (Clear) Urine Blood Moderate H (Negative) Ur Leukocyte Esterase Large H (Negative) Urine RBC 14 H (0-5) /hpf Urine WBC 77 H (0-5) /hpf Urine WBC Clumps Many H (None) /hpf Urine Bacteria Many H (None) /hpf Urine Mucus Rare H (None) /hpf 08/02/17 Range/Units 08:30 RBC (3.80-5.40) m/uL Hgb (11.4-16.0) gm/dL Hct (34.0-46.0) % ABG pCO2 (35-45) mmHg ABG HCO3 (21-25) mmol/L Potassium 3.3 L (3.5-5.1) mmol/L Chloride 113 H (98-107) mmol/L Carbon Dioxide 21 L (22-30) mmol/L BUN 3 L (7-17) mg/dL Urine Appearance (Clear) Urine Blood (Negative) Ur Leukocyte Esterase (Negative) Urine RBC (0-5) /hpf Urine WBC (0-5) /hpf Urine WBC Clumps (None) /hpf Urine Bacteria (None) /hpf Urine Mucus (None) /hpf Assessment and Plan (1) Status epilepticus Narrative/Plan: Appreciate neurology's recommendations * CAT scan of the brain was negative, and heading down to have a EEG done now * Continue to follow with neurology recommendations Status: Resolved (2) Metabolic acidosis Status: Acute (3) Leukocytosis Narrative/Plan: Resolved * was acute phase reactant due to seizure and status epilepticus Status: Resolved (4) Acute encephalopathy Narrative/Plan: Resolved likely secondary to status epilepticus Status: Resolved (5) Accidental medication overdose Status: Acute
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
[2017-08-02] MEDS ORDERED: LORazepam 2 MG/ML SYRINGE ONE (16:30)
--- NOTE | 2017-08-02 20:26 | P.PN ---
Subjective This patient is a 27-year-old female was seen in neurology consultation yesterday for seizure disorder. Patient had overdosed on Neurontin. Apparently she had taken an excessive amount of Neurontin and had a questionable suicidal ideation. She was admitted to the hospital. She underwent a computed tomography scan of the brain which was reported negative. The patient refused to be interviewed today by psychiatry. She'll likely does require some inpatient psychiatric treatment. She remains withdrawn and does not communicate with the medical staff at this time. She refused to have her EEG done today and apparently pulled off the electrodes. EEG was attempted twice today. We will try again tomorrow morning to see if she is more cooperative her EEG. We have also recommended an MRI of the brain which has not been done today as was our recommendation. The patient has not been cooperative at all with the nursing staff. She remains very withdrawn and uncooperative. We will need to back off and wait until the patient is more cooperative to attempt every application of the EEG electrodes. The patient is very noncompliant. Would suggest she needs to be considered for placement. We will continue close neurological follow-up for the patient during this admission. Her overall prognosis at this time remains very guarded. We suggest that the older adult social work specialist attempt to contact the mother and sister who have been of some support for this patient. She will require some help in discharge planning as well. We will continue to monitor her condition closely during this admission. Objective - Vital Signs Vital signs: Vital Signs Temp 98.8 F 08/02/17 15:00 Pulse 101 H 08/02/17 15:00 Resp 16 08/02/17 15:05 BP 155/81 08/02/17 15:00 Pulse Ox 100 08/02/17 15:00 Intake & Output 08/01/17 08/02/17 08/02/17 18:59 06:59 18:59 Weight 70.307 kg Other: # Voids 5 2 - Exam Physical examination: PHYSICAL EXAMINATION: Patient is resting comfortably in bed. VITAL SIGNS: Blood pressure is [155/81]. Heart rate is [100]. Respiration is [16 ]. Temperature is [98.8]. HEENT: Head is atraumatic, neck is supple, there were no carotid bruits. CHEST: Lungs are clear to auscultation and percussion. CARDIAC: S1, S2 normal rate and rhythm. There is no murmur. ABDOMEN: Soft and nontender. Bowel sounds are present. EXTREMITIES: There is no pedal edema. Peripheral pulses are present. Neurological examination: Neurological examination is limited as a patient is uncooperative. Neuro exam is unchanged from yesterday. Patient remains laying in bed and does not wish to answer any questions at this time. - Labs CBC & Chem 7: 08/02/17 08:30 08/02/17 08:30 Labs: Abnormal Lab Results - Last 24 Hours (Table) 08/01/17 08/02/17 08/02/17 Range/Units 16:30 08:30 08:30 RBC 3.75 L (3.80-5.40) m/uL Hgb 11.1 L (11.4-16.0) gm/dL Hct 33.0 L (34.0-46.0) % Potassium 3.3 L (3.5-5.1) mmol/L Chloride 113 H (98-107) mmol/L Carbon Dioxide 21 L (22-30) mmol/L BUN 3 L (7-17) mg/dL Urine Appearance Cloudy H (Clear) Urine Blood Moderate H (Negative) Ur Leukocyte Esterase Large H (Negative) Urine RBC 14 H (0-5) /hpf Urine WBC 77 H (0-5) /hpf Urine WBC Clumps Many H (None) /hpf Urine Bacteria Many H (None) /hpf Urine Mucus Rare H (None) /hpf Microbiology - Last 24 Hours (Table) 08/01/17 09:04 Blood Culture - Preliminary Blood No Growth after 24 hours 08/01/17 08:49 Blood Culture - Preliminary Blood No Growth after 24 hours Assessment and Plan (1) Status epilepticus Status: Resolved Code(s): G40.901 - EPILEPSY, UNSP, NOT INTRACTABLE, WITH STATUS EPILEPTICUS (2) Acute encephalopathy Status: Resolved Code(s): G93.40 - ENCEPHALOPATHY, UNSPECIFIED (3) Overdose Status: Acute Code(s): T50.901A - POISONING BY UNSP DRUG/MEDS/BIOL SUBST, ACCIDENTAL, INIT (4) Bipolar 1 disorder, depressed Status: Acute Code(s): F31.9 - BIPOLAR DISORDER, UNSPECIFIED Plan: This patient is a 27-year-old right-handed white female who was admitted hospital with episode of multiple seizures at home. Patient is living at home with her mother. Several of these events were noted by the mother and initially begins with myoclonic jerks. She was having multiple events at home yesterday in which she became convulsive for at least 30 seconds in duration. They seem to occur back to back. She is brought into the emergency room at [facility] for further evaluation. General when a computed tomography scan of the brain which was negative. The patient apparently had overdosed on gabapentin. She was recently prescribed 21 pills and 13 pills were missing. She was taking gabapentin 800 mg 3 times a day. When questioned about possible drug overdose the patient denies this behavior at this time. We will await a EEG to be done tomorrow morning for review. 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 2 attempts have been made to obtain the EEG including one this morning. The patient ripped off the EEG electrodes and would not allow the chemical research technician to complete the test. She has been very uncooperative with the nursing staff during this admission. We will attempt again tomorrow morning to see if she will cooperate for the EEG testing. We have also recommended an MRI of the brain to be done which is still pending. Her overall prognosis at this time remains very guarded. Patient should be kept on seizure precautions during this admission. Case was discussed at length with the patient and her mother at bedside yesterday. All their questions were answered. They are aware of her guarded condition. We will continue close neurological follow-up for this patient during this admission.
[2017-08-03] MEDS: SODIUM CHLORIDE 0.9% 1,000 ML IV SCH ×2 (03:45→10:16)
[2017-08-03] MEDS: FAMOTIDINE 20 MG TAB PO SCH ×2 (07:52→21:22)
[2017-08-03] MEDS ORDERED: LORazepam 2 MG/ML SYRINGE IV STA (10:04)
[2017-08-03] MEDS: ACETAMINOPHEN TAB 325 MG TAB PO PRN ×2 (10:14→17:35)
--- NOTE | 2017-08-03 13:19 | MR ---
EXAMINATION TYPE: MR brain wo/w con DATE OF EXAM: 08/03/2017 although in PACS the date states 08/02/2017. COMPARISON: CT brain dated 08/02/2017 HISTORY: Seizure, hx breast ca TECHNIQUE: Multiplanar, multisequence images of the brain and brainstem is performed without and with IV contras t, utilizing 7 mL intravenous Gadavist . FINDINGS: Diffusion weighted images demonstrate no evidence of a recent infarct or other diffusion ab normality. There is no extra-axial fluid collection. Single punctate focus of nonspecific white caroline er changes seen within the right frontal lobe on T2 FLAIR image 15. This is nonenhancing and unlikely to represent metastasis.. The ventricular system and cisternal spaces are normal in size and appear ance. The brain volume is age appropriate. Medial temporal lobes appear symmetric. Hippocampal regio ns are unremarkable. Midline structures demonstrate normal morphology. The craniocervical junction appears within normal limits. Post contrast images demonstrate no abnormal enhancement. The dural venous sinuses appear pa tent. The visualized sinuses are clear and the globes are intact. Bone marrow signal of the upper cervical spine appears T1 hypointense in comparison to the disc space s and could be artifactual as the upper cervical spine maintained normal bone marrow signal on the ex am of 07/13/2017 although metastasis is possible. IMPRESSION: 1. No abnormal enhancement or intra-axial vasogenic edema to suggest intracranial mass/metastasis. 2. Abnormal bone marrow signal of the upper cervical spine which is favored be artifactual given the recent MR cervical spine dated 07/13/2017 demonstrating normal-appearing bone marrow signal, although metastasis is possible given the history of breast cancer. 3. Single nonspecific right frontal focus of white matter change. This focus does not enhance with no surrounding edema and is unlikely to represent metastasis.
[2017-08-03] MEDS ORDERED: CALCIUM CARBONATE 500 MG CHEWABLE PO PRN (14:49)
--- NOTE | 2017-08-03 16:38 | P.PN ---
Subjective Principal diagnosis: a 27-year-old female that presented with altered mental status encephalopathy and status epilepticus secondary to presumed gabapentin overdose , she had a pronounced leukocytosis of 21 and admission with severe gap metabolic acidosis secondary to her status epilepticus. Computed tomography scan of the head was negative for any acute intracranial pathology. Neurology and psychology has been consulted She was more awake today, does not remember me examiners yesterday, eyes any suicidal or homicidal ideation. complaining of feeling tired and fatigued and weak. Her at bedside who has more insight into the patient's underlying possible addiction to Neurontin (that she takes Neurontin to get a high. Otherwise no acute events overnight no seizure-like activities, it has been difficult to get the patient to comply with getting her EEG and MRI. The patient plan of care and she has agreed to see with the studies today Objective - Vital Signs Vital signs: Vital Signs Temp 97.9 F 08/03/17 14:48 Pulse 76 08/03/17 14:48 Resp 18 08/03/17 14:48 BP 124/70 08/03/17 14:48 Pulse Ox 99 08/03/17 14:48 Intake & Output 08/02/17 08/03/17 08/03/17 18:59 06:59 18:59 Intake Total 440 Balance 440 Intake: Intake, IV Titration 200 Amount cefTRIAXone 1,000 mg In 200 Sodium Chloride 0.9% 50 ml @ 100 mls/hr IVPB 1999 [facility] Rx#:[id number] Oral 240 Other: # Voids 2 1 - Exam Constitutional: No acute distress, conversant, pleasant Eyes: Anicteric sclerae, moist conjunctiva, no lid-lag, PERRLA ENMT: NC/AT,Oropharynx clear, no erythema, exudates Neck:Supple, FROM, no masses, or JVD, No carotid bruits; No thyromegaly Lungs: Clear to auscultation, Clear to percussion, Normal respiratory effort, no accessory muscle use Cardiovascular: Heart regular in rate and rhythm, No murmurs, gallops, or rubs no peripheral edema Abdominal: Soft Nontender, nom distended, no guarding, no rebound or rigidity, Normoactive bowel sounds No hepatomegaly, No splenomegaly, No palpable mass No abdominal wall hernia noted Skin: Normal temperature, tone, texture, turgor, No induration No subcutaneous nodules, No rash, lesions, No ulcers Extremities:No digital cyanosis No clubbing, Pedal pulses intact and symmetrical Radial pulses intact and symmetrical Normal gait and station, No calf tenderness Psychiatric: Alert and oriented to person, place and time, Appropriate affect Intact judgement Neuro: Muscles Strength 5/5 in all 4 extremities, Sensation to light touch grossly present throughout, Cranial nerves II-XII grossly intact. No focal sensory deficits - Labs CBC & Chem 7: 08/02/17 08:30 08/02/17 08:30 Labs: Microbiology - Last 24 Hours (Table) 08/01/17 09:04 Blood Culture - Preliminary Blood No Growth after 48 hours 08/01/17 08:49 Blood Culture - Preliminary Blood No Growth after 48 hours Assessment and Plan (1) Status epilepticus Narrative/Plan: Appreciate neurology's recommendations * CAT scan of the brain was negative, and heading down to have a EEG done now * Continue to follow with neurology recommendations * MRI and EEG results pending Status: Resolved (2) Metabolic acidosis Status: Acute (3) Acute encephalopathy Status: Resolved (4) UTI (urinary tract infection) Narrative/Plan: Continue with Rocephin day #2 Status: Acute (5) Accidental medication overdose Status: Resolved Plan: Follow-up with neurology recommendations after EEG and MRI results are posted
[2017-08-03] MEDS ORDERED: MELATONIN 3 MG TABLET PO SCH (21:00)
[2017-08-03] MEDS ORDERED: levETIRAcetam IV 1,000 MG in SALINE 1 100ML.BAG IVPB STA (22:01)
--- NOTE | 2017-08-04 04:13 | P.PN ---
Subjective This patient is a 27-year-old female was seen in neurology consultation yesterday for seizure disorder. Patient had overdosed on Neurontin. Apparently she had taken an excessive amount of Neurontin and had a questionable suicidal ideation. She was admitted to the hospital. She underwent a computed tomography scan of the brain which was reported negative. The patient refused to be interviewed today by psychiatry. She'll likely does require some inpatient psychiatric treatment. She remains withdrawn and does not communicate with the medical staff at this time. She refused to have her EEG done today and apparently pulled off the electrodes. EEG was attempted twice today. We will try again tomorrow morning to see if she is more cooperative her EEG. We have also recommended an MRI of the brain which has not been done today as was our recommendation. The patient has not been cooperative at all with the nursing staff. She remains very withdrawn and uncooperative. We will need to back off and wait until the patient is more cooperative to attempt a repeat EEG attempt. The patient was very noncompliant. The patient was more cooperative today. She still remains somewhat withdrawn and answers only a few questions according to the nursing staff. She was able to undergo a routine EEG today which was reviewed. Her EEG is abnormal as there was evidence of delta bursts with occasional sharp wave activity. We have recommended that the patient should be started on Keppra for seizure prophylaxis. We will give her a bolus of IV Keppra thousand milligrams followed by a maintenance dose of Keppra consisting of 500 mg by mouth twice a day. Patient was also able to complete her MRI of the brain today. MRI of the brain reveals one isolated hyperintensity in the right frontal lobe. Otherwise brain volume and content appears to be normal for her age. No evidence of any enhancing lesions on the MRI of the brain. Would suggest she needs to be considered for placement. We will continue close neurological follow-up for the patient during this admission. Her overall prognosis at this time remains very guarded. We suggest that the social services specialist attempt to contact the mother and sister who have been of some support for this patient. She will require some help in discharge planning as well. We will continue to monitor her condition closely during this admission. Objective - Vital Signs Vital signs: Vital Signs Temp 97.9 F 08/03/17 14:48 Pulse 76 08/03/17 14:48 Resp 18 08/03/17 14:48 BP 124/70 08/03/17 14:48 Pulse Ox 99 08/03/17 14:48 Intake & Output 08/02/17 08/03/17 08/03/17 18:59 06:59 18:59 Intake Total 440 Balance 440 Intake: Intake, IV Titration 200 Amount cefTRIAXone 1,000 mg In 200 Sodium Chloride 0.9% 50 ml @ 100 mls/hr IVPB 1999 [facility] Rx#:[id number] Oral 240 Other: # Voids 2 1 - Exam Physical examination: PHYSICAL EXAMINATION: Patient is resting comfortably in bed. VITAL SIGNS: Blood pressure is [124/70]. Heart rate is [76]. Respiration is [18] . Temperature is [97.9]. HEENT: Head is atraumatic, neck is supple, there were no carotid bruits. CHEST: Lungs are clear to auscultation and percussion. CARDIAC: S1, S2 normal rate and rhythm. There is no murmur. ABDOMEN: Soft and nontender. Bowel sounds are present. EXTREMITIES: There is no pedal edema. Peripheral pulses are present. Neurological examination: Neurological examination is limited as a patient is uncooperative. Neuro exam is unchanged from yesterday. Patient is much more awake today. She does not her head to questioning with yes and no answers. Her overall verbal output however still remains very reserved. She is noted to be moving all 4 extremities. - Labs CBC & Chem 7: 08/02/17 08:30 08/02/17 08:30 Labs: Microbiology - Last 24 Hours (Table) 08/01/17 09:04 Blood Culture - Preliminary Blood No Growth after 48 hours 08/01/17 08:49 Blood Culture - Preliminary Blood No Growth after 48 hours Assessment and Plan (1) Status epilepticus Status: Resolved Code(s): G40.901 - EPILEPSY, UNSP, NOT INTRACTABLE, WITH STATUS EPILEPTICUS (2) Acute encephalopathy Status: Resolved Code(s): G93.40 - ENCEPHALOPATHY, UNSPECIFIED (3) Overdose Status: Acute Code(s): T50.901A - POISONING BY UNSP DRUG/MEDS/BIOL SUBST, ACCIDENTAL, INIT (4) Bipolar 1 disorder, depressed Status: Acute Code(s): F31.9 - BIPOLAR DISORDER, UNSPECIFIED Plan: This patient is a 27-year-old right-handed white female who was admitted hospital with episode of multiple seizures at home. Patient is living at home with her mother. Several of these events were noted by the mother and initially begins with myoclonic jerks. She was having multiple events at home yesterday in which she became convulsive for at least 30 seconds in duration. They seem to occur back to back. She is brought into the emergency room at [facility] for further evaluation. General when a computed tomography scan of the brain which was negative. The patient apparently had overdosed on gabapentin. She was recently prescribed 21 pills and 13 pills were missing. She was taking gabapentin 800 mg 3 times a day. When questioned about possible drug overdose the patient denies this behavior at this time. We will await a EEG to be done tomorrow morning for review. 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 2 attempts have been made to obtain the EEG including one this morning. The patient ripped off the EEG electrodes and would not allow the diet technician registered to complete the test. Patient was able to complete EEG testing today. Her EEG was reviewed the results of which are noted above. EEG was abnormal. We have recommended starting the patient on Keppra for seizure prophylaxis. Patient was also able to complete MRI of the brain today. Results of the MRI are as noted above. Currently her neurological diagnosis would be one of a diffuse metabolic encephalopathy. Now with the abnormal EEG she is also to be monitored for seizure disorder. Her overall prognosis at this time remains very guarded. Patient should be kept on seizure precautions during this admission. Case was discussed at length with the patient and her mother at bedside yesterday. All of their questions were answered. They are aware of her guarded condition. We will continue close neurological follow-up for this patient during this admission.
--- NOTE | 2017-08-04 08:03 | EEG ---
ELECTROENCEPHALOGRAM REPORT DATE OF EE08/03/2017. REFERRING PHYSICIAN: Dr. Harmon. CONSULTING INTERPRETING PHYSICIAN: Dr. Yash Smith MD. ELECTROENCEPHALOGRAPHIC EXAMINATION REPORT: INDICATION FOR EXAMINATION: This patient is a 27-year-old female, admitted with seizure activity and drug overdose with gabapentin. EEG for further evaluation of seizure disorder. AGE: 27. EEG FINDINGS: A routine 21 channel awake digital EEG recording was accomplished utilizing the 10-20 international system with bipolar and referential montages. The background activity in the most alert resting state consists of a low to medium amplitude, poorly developed and poorly sustained 6-7 Hz activity over the posterior head regions. This posterior rhythm attenuates minimally to eye opening. There is a small amount of low amplitude 18-20 Hz beta activity seen maximally over the anterior head regions. Muscle and movement artifact was observed on several occasions during the tracing. Hyperventilation failed to reveal any additional changes to the EEG background. This was a poor effort. Photic stimulation at flash frequencies of 2-30 Hz produced a minimal occipital driving response. The main feature of this tracing is the occurrence of delta numbers in the range of 3-4 Hz activity occurring for 2-3 seconds on several occasions during the tracing. Occasional sharp waves were also noted. IMPRESSION: This EEG is abnormal due to the frequent discharge of delta activity and sharp wave activity noted throughout the tracing. This finding is suggestive of underlying seizure disorder. If clinically indicated a followup EEG is recommended. Clinical correlation is strongly recommended. MMSHOLAL / IJSixto: [id number] /
[2017-08-04] MEDS: levETIRAcetam 500 MG TAB PO SCH ×2 (08:27→20:13)
[2017-08-04] MEDS: FAMOTIDINE 20 MG TAB PO SCH ×2 (08:27→20:13)
--- NOTE | 2017-08-04 09:57 | P.PN ---
Subjective Principal diagnosis: a 27-year-old female that presented with altered mental status encephalopathy and status epilepticus secondary to presumed gabapentin overdose , she had a pronounced leukocytosis of 21 and admission with severe gap metabolic acidosis secondary to her status epilepticus now resolved Computed tomography scan of the head was negative for any acute intracranial pathology. Neurology Dr. Eller started the patient on Keppra for prophylaxis as she had an abnormal EEG showing delta bursts with occasional sharp wave activity aand MRI showed a area of hyperintensity in the right frontal lobe. She was more awake today and conversive answering appropriately to questions today she denies any suicidal or homicidal ideation. complaining of feeling tired and fatigued and weak. Patient much more receptive to conversation and is not displaying any signs of selective mutism as previously documented. She has agreed to speak with psychiatry today and is medically stable Objective - Vital Signs Vital signs: Vital Signs Temp 97.5 F L 08/04/17 07:00 Pulse 73 08/04/17 07:00 Resp 16 08/04/17 07:00 BP 130/72 08/04/17 07:00 Pulse Ox 99 08/04/17 07:00 Intake & Output 08/03/17 08/04/17 08/04/17 18:59 06:59 18:59 Intake Total 800 Balance 800 Intake: Intake, IV Titration 800 Amount Sodium Chloride 0.9% 1, 600 000 ml @ 150 mls/hr IV . Q6H40M [facility] Rx#:[id number] cefTRIAXone 1,000 mg In 100 Sodium Chloride 0.9% 50 ml @ 100 mls/hr IVPB 2000 [facility] Rx#:[id number] levETIRAcetam IV 1,000 mg 100 In Saline 1 100ml.bag @ 400 mls/hr IVPB ONCE [facility] Rx#:[id number] Other: # Voids 1 2 - Exam Constitutional: No acute distress, conversant, pleasant Eyes: Anicteric sclerae, moist conjunctiva, no lid-lag, PERRLA ENMT: NC/AT,Oropharynx clear, no erythema, exudates Neck:Supple, FROM, no masses, or JVD, No carotid bruits; No thyromegaly Lungs: Clear to auscultation, Clear to percussion, Normal respiratory effort, no accessory muscle use Cardiovascular: Heart regular in rate and rhythm, No murmurs, gallops, or rubs no peripheral edema Abdominal: Soft Nontender, nom distended, no guarding, no rebound or rigidity, Normoactive bowel sounds No hepatomegaly, No splenomegaly, No palpable mass No abdominal wall hernia noted Skin: Normal temperature, tone, texture, turgor, No induration No subcutaneous nodules, No rash, lesions, No ulcers Extremities:No digital cyanosis No clubbing, Pedal pulses intact and symmetrical Radial pulses intact and symmetrical Normal gait and station, No calf tenderness Psychiatric: Alert and oriented to person, place and time, Appropriate affect Intact judgement Neuro: Muscles Strength 5/5 in all 4 extremities, Sensation to light touch grossly present throughout, Cranial nerves II-XII grossly intact. No focal sensory deficits - Labs CBC & Chem 7: 08/02/17 08:30 08/02/17 08:30 Labs: Microbiology - Last 24 Hours (Table) 08/01/17 09:04 Blood Culture - Preliminary Blood No Growth after 48 hours 08/01/17 08:49 Blood Culture - Preliminary Blood No Growth after 48 hours Assessment and Plan (1) Status epilepticus Narrative/Plan: Appreciate neurology's recommendations * CAT scan of the brain was negative, abnormal EEG showing evidence of delta bursts and occasional sharp wave activity started on Keppra for prophylaxis * Appreciate neurology recommendations Status: Resolved (2) Metabolic acidosis Status: Resolved (3) Leukocytosis Narrative/Plan: Resolved * was acute phase reactant due to seizure and status epilepticus Status: Resolved (4) Acute encephalopathy Narrative/Plan: Resolved likely secondary to status epilepticus Status: Resolved
--- NOTE | 2017-08-04 18:25 | P.PN ---
Subjective This patient is a 27-year-old female was seen in neurology consultation yesterday for seizure disorder. Patient had overdosed on Neurontin. Apparently she had taken an excessive amount of Neurontin and had a questionable suicidal ideation. She was admitted to the hospital. She underwent a computed tomography scan of the brain which was reported negative. The patient refused to be interviewed today by psychiatry. She'll likely does require some inpatient psychiatric treatment. She remains withdrawn and does not communicate with the medical staff at this time. She refused to have her EEG done today and apparently pulled off the electrodes. EEG was attempted twice today. We will try again tomorrow morning to see if she is more cooperative her EEG. We have also recommended an MRI of the brain which has not been done today as was our recommendation. The patient has not been cooperative at all with the nursing staff. She remains very withdrawn and uncooperative. We will need to back off and wait until the patient is more cooperative to attempt a repeat EEG attempt. The patient was very noncompliant. The patient was more cooperative today. She still remains somewhat withdrawn and answers only a few questions according to the nursing staff. She was able to undergo a routine EEG today which was reviewed. Her EEG is abnormal as there was evidence of delta bursts with occasional sharp wave activity. We have recommended that the patient should be started on Keppra for seizure prophylaxis. We will give her a bolus of IV Keppra thousand milligrams followed by a maintenance dose of Keppra consisting of 500 mg by mouth twice a day. Patient was also able to complete her MRI of the brain today. MRI of the brain reveals one isolated hyperintensity in the right frontal lobe. Otherwise brain volume and content appears to be normal for her age. No evidence of any enhancing lesions on the MRI of the brain. Would suggest she needs to be considered for placement. We will continue close neurological follow-up for the patient during this admission. Her overall prognosis at this time remains very guarded. We suggest that the social science teacher attempt to contact the mother and sister who have been of some support for this patient. We have ordered Keppra blood level this morning but it is still pending from the laboratory. Hopefully this will be available tomorrow morning and her dosage can be adjusted if necessary. She will require some help in discharge planning as well. We will continue to monitor her condition closely during this admission. Objective - Vital Signs Vital signs: Vital Signs Temp 98.8 F 09/17/17 15:00 Pulse 69 08/04/17 15:00 Resp 18 08/04/17 15:00 BP 125/78 08/04/17 15:00 Pulse Ox 100 08/04/17 15:00 Intake & Output 08/03/17 08/04/17 08/04/17 18:59 06:59 18:59 Intake Total 800 Balance 800 Intake: Intake, IV Titration 800 Amount Sodium Chloride 0.9% 1, 600 000 ml @ 150 mls/hr IV . Q6H40M [facility] Rx#:[id number] cefTRIAXone 1,000 mg In 100 Sodium Chloride 0.9% 50 ml @ 100 mls/hr IVPB 2000 [facility] Rx#:[id number] levETIRAcetam IV 1,000 mg 100 In Saline 1 100ml.bag @ 400 mls/hr IVPB ONCE [facility] Rx#:[id number] Other: # Voids 1 2 - Exam Physical examination: PHYSICAL EXAMINATION: Patient is resting comfortably in bed. VITAL SIGNS: Blood pressure is [125/78]. Heart rate is [78]. Respiration is [18] . Temperature is [97.9]. HEENT: Head is atraumatic, neck is supple, there were no carotid bruits. CHEST: Lungs are clear to auscultation and percussion. CARDIAC: S1, S2 normal rate and rhythm. There is no murmur. ABDOMEN: Soft and nontender. Bowel sounds are present. EXTREMITIES: There is no pedal edema. Peripheral pulses are present. Neurological examination: Neurological examination is limited as a patient is uncooperative. Neuro exam is unchanged from yesterday. Patient is much more awake today. She does not her head to questioning with yes and no answers. Her overall verbal output however still remains very reserved. She is noted to be moving all 4 extremities. - Labs CBC & Chem 7: 08/02/17 08:30 08/02/17 08:30 Labs: Microbiology - Last 24 Hours (Table) 08/01/17 09:04 Blood Culture - Preliminary Blood No Growth after 72 hours 08/01/17 08:49 Blood Culture - Preliminary Blood No Growth after 72 hours Assessment and Plan (1) Status epilepticus Status: Resolved Code(s): G40.901 - EPILEPSY, UNSP, NOT INTRACTABLE, WITH STATUS EPILEPTICUS (2) Acute encephalopathy Status: Resolved Code(s): G93.40 - ENCEPHALOPATHY, UNSPECIFIED (3) Overdose Status: Acute Code(s): T50.901A - POISONING BY UNSP DRUG/MEDS/BIOL SUBST, ACCIDENTAL, INIT (4) Bipolar 1 disorder, depressed Status: Acute Code(s): F31.9 - BIPOLAR DISORDER, UNSPECIFIED Plan: This patient is a 27-year-old right-handed white female who was admitted hospital with episode of multiple seizures at home. Patient is living at home with her mother. Several of these events were noted by the mother and initially begins with myoclonic jerks. She was having multiple events at home yesterday in which she became convulsive for at least 30 seconds in duration. They seem to occur back to back. She is brought into the emergency room at [facility] for further evaluation. General when a computed tomography scan of the brain which was negative. The patient apparently had overdosed on gabapentin. She was recently prescribed 21 pills and 13 pills were missing. She was taking gabapentin 800 mg 3 times a day. When questioned about possible drug overdose the patient denies this behavior at this time. We will await a EEG to be done tomorrow morning for review. 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 2 attempts have been made to obtain the EEG including one this morning. The patient ripped off the EEG electrodes and would not allow the cardiothoracic anesthesia technician to complete the test. Patient was able to complete EEG testing today. Her EEG was reviewed the results of which are noted above. EEG was abnormal. We have recommended starting the patient on Keppra for seizure prophylaxis. Patient was also able to complete MRI of the brain today. Results of the MRI are as noted above. Currently her neurological diagnosis would be one of a diffuse metabolic encephalopathy. Now with the abnormal EEG she is also to be monitored for seizure disorder. Her overall prognosis at this time remains very guarded. Patient should be kept on seizure precautions during this admission. Case was discussed at length with the patient and her mother at bedside yesterday. We will draw another Keppra blood level tomorrow morning. We're waiting for the blood test result to return from the laboratories so further adjustments can be made on her maintenance dose of Keppra. All of their questions were answered. They are aware of her guarded condition. We will continue close neurological follow-up for this patient during this admission.
[2017-08-04] MEDS: ACETAMINOPHEN TAB 325 MG TAB PO PRN (20:34)
[2017-08-04] MEDS ORDERED: MELATONIN 5 MG TABLET PO SCH (21:00)
[2017-08-05 07:34] VITALS: RESP 16
[2017-08-05] MEDS: levETIRAcetam 500 MG TAB PO SCH (08:41)
[2017-08-05] MEDS: FAMOTIDINE 20 MG TAB PO SCH (08:41)
[2017-08-05] MEDS: ACETAMINOPHEN TAB 325 MG TAB PO PRN ×2 (11:11→15:38)
--- NOTE | 2017-08-05 14:22 | P.CN ---
Psychiatric Consult - . Consult date: 08/05/17 Consult:: 08/05/17 13:58 Identification and Reason for Consult: Patient is a 27-year-old female who was admitted on August 01 after taking more Neurontin than she should have. Consult was requested for overdose and the patient's chart was reviewed, patient had been seen on 3 prior attempts and she refused to speak with me or would not speak with me and so was seen today in family members are present. History of Present Illness: Patient is a 27-year-old female who reportedly took more of her Neurontin than she should have and states that it was due to get high. Patient is followed at [facility] in [facility] on a weekly basis to obtain her medications in a pillbox and apparently took a week's supply of Neurontin in several days. Patient states she is not compliant with her other medications and takes them occasionally as directed but does not take them on a regular basis. She states she doesn't feel her medications work and at times this is why she doesn't take her medications because she doesn't feel they're working. She states that she took the Neurontin to get high and has done this in the past. She states that this was not a suicide attempt and she had not been feeling suicidal. Patient had been prescribed lithium 600 mg at bedtime Seroquel 200 mg at bedtime Effexor 300 mg in the morning and was also on Neurontin. She states she was placed on Neurontin initially for pain that she had due to back problems. Patient states that she is currently feeling fine, she is not sleeping well in the hospital and reports no current suicidal or homicidal thoughts. She denies any psychotic symptoms and says she slightly depressed. She is not feeling hopeless or helpless and states that her appetite is good. Patient is able to endorse symptoms of sparkle in the past as well as symptoms of depression. She states that she has attempted suicide in the past at least 3 times her last attempt was by cutting her wrist and she states that her first hospitalization was due to her first suicide attempt of cutting her wrists. Past Psychiatric History: Patient states she has multiple prior admissions she is unsure of the numbers her last one however was here in March 2017. She thinks her first was in her mid teens. Patient has attempted suicide on 3 occasions in the past. Patient's most recent medications were Effexor 300 mg in the morning, lithium 600 mg and Seroquel 200 mg at bedtime she was also taking Neurontin Past Medical/Surgical History: . Patient denies any prior medical problems but is now been diagnosed with a seizure disorder, she has status post bariatric surgery asleep and this was secondary to back problems that she was having due to her weight. Current Medications Acetaminophen (Tylenol Tab) 650 mg PO Q6HR PRN PRN Reason: Fever and/ or Mild Pain Last Admin: 08/05/17 11:11 Dose: 650 mg Calcium Carbonate/Glycine (Tums) 1,000 mg PO QID PRN PRN Reason: Heartburn Last Admin: 08/03/17 16:29 Dose: 1,000 mg Famotidine (Pepcid) 20 mg PO BID [facility] Last Admin: 08/05/17 08:41 Dose: 20 mg Ceftriaxone Sodium 1,000 mg/ (Sodium Chloride) 50 mls @ 100 mls/hr IVPB 2000 [facility] Last Admin: 08/04/17 20:11 Dose: 100 mls/hr Levetiracetam (Keppra) 500 mg PO Q12HR [facility] Last Admin: 08/05/17 08:41 Dose: 500 mg Melatonin (Melatonin) 5 mg PO HS [facility] Last Admin: 08/04/17 20:13 Dose: 5 mg Naloxone HCl (Narcan) 0.2 mg IV Q2M PRN PRN Reason: Opioid Reversal Social History: Patient was born and raised in [place] both of her parents are alive a divorce and the patient was rather young. She states she has 1 sister. She has lived with her mother who has been remarried and . Patient states she was home schooled but did complete high school. She states she hasn' t worked in a long time and lives with her mother who supports her. She has never been and has no children and denies any abuse history. Substance Use History: Patient states she began using alcohol at the age of 13 and drank heavily in the past but states she is not bad any alcohol the last year, she states that she is used marijuana since the age of 13 and uses daily until the last year. She denies any IV drug use. She states she used methamphetamine several weeks ago. Patient states she abused pain medication in the past and last used 1 month ago. Patient also used benzodiazepines a month ago. She states she used amphetamines several weeks ago. Legal History: Patient states she is on probation for domestic violence charge against her mother. Mental Status:Appearance/Attitude: Patient is lying in a hospital bed in no acute distress, makes intermittent eye contact and is cooperative. Behavior: Patient does not display any psychomotor agitation or retardation. Speech/Language: Patient's speech is spontaneous, she speaks in a soft voice and she is coherent. Thought Process: Patient is goal-directed, there is no evidence of circumstantial or tangential thought and no loose associations or flight of ideas. Thought Content: Patient denies any auditory or visual hallucinations and no paranoid or delusional ideation is elicited. Patient denies racing thoughts. Patient states that she is not hopeless or helpless and states that she hasn't been sleeping well in the hospital. Patient states her appetite is good. Suicidal/Homicidal Ideation: Patient denies any current suicidal or homicidal ideation. Sensorium/Cognition: Patient is alert and oriented to person, place, and time and her memory is grossly intact. Mood/Affect: Patient's mood is slightly depressed and her affect is blunted. Insight/Judgement: Patient's insight and judgment are fair. Assessment: Patient presents and has not been compliant with her medications on a regular basis, took more Neurontin than she was supposed to to get high and has been using amphetamines, benzodiazepines and opiates as well as methamphetamine over the last month. Patient states he is not compliant with her medication on a regular basis from [facility] even though she obtains it on a weekly basis. Patient states she is also in CBT at [facility]. Patient states she was trying to get high and this was not a suicide attempt. Patient is currently not expressing any suicidal or homicidal ideation and there is no evidence of a psychotic process and the patient states she slightly depressed but has been eating well and is not feeling hopeless or helpless she states her sleep is not good due to the bed being uncomfortable. Patient is recently been diagnosed with a seizure disorder and is now been placed on Keppra. Diagnosis: Bipolar disorder, multiple substance use disorder Plan: Patient has not been started on any of her psychiatric medications during this hospital stay due to her having seizures on admission. Patient does not wish to sign in voluntarily to the psychiatric unit to restart her medications and she does not meet criteria for an involuntary commitment as she is not psychotic, she is not suicidal or homicidal and is willing to return to [facility] to restart her medications. A referral to social work has been made to schedule an appointment with [facility] to restart the patient on her psychiatric medications as soon as possible. I would recommend that the patient not be restarted on Neurontin. Patient was advised to be compliant with her appointments and her medications. Patient was also advised to avoid all alcohol and drugs. I will sign off the case and the patient can be discharged once she has a follow-up appointment at [facility].
[2017-08-05 15:33] VITALS: BP 130/70; PULSE 84; TEMP 98.4
--- NOTE | 2017-08-05 15:56 | P.DS ---
Providers Date of admission: 08/01/17 04:54 Attending physician: Gerardo Hickey MD Consults: 08/01/17 04:53 Consult Physician Routine Consulting Provider: Harmony Burger Consult Reason/Comments: overdose Do you want consulting provider notified?: Yes 08/01/17 08:00 Consult Physician Routine Consulting Provider: Yash Smith Consult Reason/Comments: seizure Do you want consulting provider notified?: Yes, Notify in am 08/04/17 09:28 Consult Physician Routine Consulting Provider: Harmony Burger Consult Reason/Comments: re see Do you want consulting provider notified?: Yes Primary care physician: Stated None - Discharge Diagnosis(es) (1) Overdose Current Visit: Yes Status: Acute (2) Generalized seizure Current Visit: Yes Status: Acute (3) Metabolic acidosis Current Visit: Yes Status: Resolved (4) UTI (urinary tract infection) Current Visit: Yes Status: Acute Hospital Course: This is a 27-year-old female with previous psychiatric history that was admitted after a overdose on gabapentin. In the ER patient did have episode of grand mal seizure. Neurology was consulted patient was started on Keppra and has been seizure free on the floor. Noted patient is medically stable psychiatry has evaluated patient and did not feel that patient needs any inpatient psychiatric treatment. Will follow up with psychiatry as an outpatient. Condition on discharge stable Patient Condition at Discharge: Fair Plan - Discharge Summary New Discharge Prescriptions: New levETIRAcetam [Keppra] 500 mg PO Q12HR #30 tab Levofloxacin [Levaquin] 750 mg PO DAILY #2 tab Continue Venlafaxine HCl ER [Effexor XR] 300 mg PO QAM Gabapentin 800 mg PO Q6H Omeprazole 20 mg PO BID Loratadine [Claritin] 10 mg PO DAILY Amenia Carbonate 600 mg PO HS ARIPiprazole [Abilify Maintena] 400 mg IM Q28D QUEtiapine [SEROquel] 200 mg PO HS Discharge Medication List Venlafaxine HCl ER [Effexor XR] 300 mg PO QAM 03/19/17 [History] Gabapentin 800 mg PO Q6H 04/13/17 [History] ARIPiprazole [Abilify Maintena] 400 mg IM Q28D 07/11/17 [History] Amenia Carbonate 600 mg PO HS 07/11/17 [History] Loratadine [Claritin] 10 mg PO DAILY 07/11/17 [History] Omeprazole 20 mg PO BID 07/11/17 [History] QUEtiapine [SEROquel] 200 mg PO HS 08/01/17 [History] Levofloxacin [Levaquin] 750 mg PO DAILY #2 tab 08/05/17 [Rx] levETIRAcetam [Keppra] 500 mg PO Q12HR #30 tab 08/05/17 [Rx] Follow up Appointment(s)/Referral(s): [facility] [Outside] - 1 Week (Tasneem Bullard on 08.12.17 at 4:00pm Dr. Corrina Cortes on 08.13.17 at 0830am) Gisele Smith MD [STAFF PHYSICIAN] - 08/20/17 2:00 pm Patient Instructions/Handouts: Nonepileptic Seizures (DC) Discharge Disposition: HOME SELF-CARE
--- NOTE | 2017-08-05 15:56 | P.PN ---
Subjective Principal diagnosis: 27 year old female that was admitted after a gabapentin overdose Today patient has no nausea or vomiting no hallucinations seizure like activity noted Objective - Vital Signs Vital signs: Vital Signs Temp 98.2 F 08/05/17 07:00 Pulse 89 08/05/17 07:00 Resp 16 08/05/17 07:00 BP 129/73 08/05/17 07:00 Pulse Ox 99 08/05/17 07:00 Intake & Output 08/04/17 08/05/17 08/05/17 18:59 06:59 18:59 Other: # Voids 1 - Exam Constitutional: No acute distress, conversant, pleasant Eyes: Anicteric sclerae, moist conjunctiva, no lid-lag PERRLA ENMT: NC/AT Oropharynx clear, no erythema, exudates Neck: Supple, FROM, no masses, or JVD No carotid bruits No thyromegaly Lungs: Clear to auscultation Clear to percussion Normal respiratory effort, no accessory muscle use Cardiovascular: Heart regular in rate and rhythm, No murmurs, gallops, or rubs No peripheral edema Abdominal: Soft Nontender, no guarding, rebound or rigidity No ulcers Extremities: no edema - Labs CBC & Chem 7: 08/02/17 08:30 08/02/17 08:30 Labs: Microbiology - Last 24 Hours (Table) 08/01/17 09:04 Blood Culture - Preliminary Blood No Growth after 72 hours 08/01/17 08:49 Blood Culture - Preliminary Blood No Growth after 72 hours Assessment and Plan (1) Overdose Narrative/Plan: Currently doing better, awaiting psychiatry evaluation today Status: Acute (2) Generalized seizure Narrative/Plan: Continue Keppra as ordered signs of seizures Status: Acute (3) Metabolic acidosis Narrative/Plan: Resolving Status: Resolved
--- NOTE | 2017-08-05 15:57 | P.PN ---
Progress Note - Text Patient was evaluated by psychiatry. Inpatient psych admission for psych patient is stable to be discharged home. The patient will be discharged home on Keppra and on Levaquin 4 days
--- NOTE | 2017-08-05 15:58 | P.PN ---
Progress Note - Text Time of discharge is 36 minutes
--- NOTE | 2017-08-05 20:04 | P.PN ---
Subjective This patient is a 27-year-old female was seen in neurology consultation yesterday for seizure disorder. Patient had overdosed on Neurontin. Apparently she had taken an excessive amount of Neurontin and had a questionable suicidal ideation. She was admitted to the hospital. She underwent a computed tomography scan of the brain which was reported negative. The patient refused to be interviewed today by psychiatry. She'll likely does require some inpatient psychiatric treatment. She remains withdrawn and does not communicate with the medical staff at this time. She refused to have her EEG done today and apparently pulled off the electrodes. EEG was attempted twice today. We will try again tomorrow morning to see if she is more cooperative her EEG. We have also recommended an MRI of the brain which has not been done today as was our recommendation. The patient has not been cooperative at all with the nursing staff. She remains very withdrawn and uncooperative. We will need to back off and wait until the patient is more cooperative to attempt a repeat EEG attempt. The patient was very noncompliant. The patient was more cooperative today. She still remains somewhat withdrawn and answers only a few questions according to the nursing staff. She was able to undergo a routine EEG today which was reviewed. Her EEG is abnormal as there was evidence of delta bursts with occasional sharp wave activity. We have recommended that the patient should be started on Keppra for seizure prophylaxis. We will give her a bolus of IV Keppra thousand milligrams followed by a maintenance dose of Keppra consisting of 500 mg by mouth twice a day. Patient was also able to complete her MRI of the brain today. MRI of the brain reveals one isolated hyperintensity in the right frontal lobe. Otherwise brain volume and content appears to be normal for her age. No evidence of any enhancing lesions on the MRI of the brain. Would suggest she needs to be considered for placement. We will continue close neurological follow-up for the patient during this admission. Her overall prognosis at this time remains very guarded. We suggest that the social professionals attempt to contact the mother and sister who have been of some support for this patient. We have ordered Keppra blood level this morning but it is still pending from the laboratory. The patient was seen by psychiatry today by Dr. Burger who evaluated the patient. Her diagnosis is the patient suffers from bipolar disorder and multiple substance abuse disorder. She has not been started on any psychiatric medications during this hospitalization. Patient did not wish to be admitted to the inpatient psychiatric unit to restart her medications. She did not meet criteria for involuntary admission. Psychiatry has cleared the patient for discharge home today. She is to follow up with [facility]. The patient is to continue on her current dose of Keppra 500 mg twice a day. Her Keppra blood level is still not back from the laboratory. She may schedule for a follow-up in the outpatient neurology clinic in 2-3 weeks. Overall prognosis at this time remains guarded. She will require some help in discharge planning as well. We will continue to monitor her condition closely during this admission. Objective - Vital Signs Vital signs: Vital Signs Temp 98.2 F 08/05/17 07:00 Pulse 89 08/05/17 07:00 Resp 16 08/05/17 07:00 BP 129/73 08/05/17 07:00 Pulse Ox 99 08/05/17 07:00 Intake & Output 08/04/17 08/05/17 08/05/17 18:59 06:59 18:59 Intake Total 200 Balance 200 Intake: Oral 200 Other: # Voids 1 - Exam Physical examination: PHYSICAL EXAMINATION: Patient is resting comfortably in bed. VITAL SIGNS: Blood pressure is [1:30/70]. Heart rate is [84]. Respiration is [16 ]. Temperature is [98.4]. HEENT: Head is atraumatic, neck is supple, there were no carotid bruits. CHEST: Lungs are clear to auscultation and percussion. CARDIAC: S1, S2 normal rate and rhythm. There is no murmur. ABDOMEN: Soft and nontender. Bowel sounds are present. EXTREMITIES: There is no pedal edema. Peripheral pulses are present. Neurological examination: Neurological examination is limited as a patient is uncooperative. Neuro exam is unchanged from yesterday. Patient is much more awake today. She does not her head to questioning with yes and no answers. Her overall verbal output however still remains very reserved. She is noted to be moving all 4 extremities. - Labs CBC & Chem 7: 08/02/17 08:30 08/02/17 08:30 Labs: Microbiology - Last 24 Hours (Table) 08/01/17 09:04 Blood Culture - Preliminary Blood No Growth after 96 hours 08/01/17 08:49 Blood Culture - Preliminary Blood No Growth after 96 hours Assessment and Plan (1) Status epilepticus Status: Resolved Code(s): G40.901 - EPILEPSY, UNSP, NOT INTRACTABLE, WITH STATUS EPILEPTICUS (2) Acute encephalopathy Status: Resolved Code(s): G93.40 - ENCEPHALOPATHY, UNSPECIFIED (3) Overdose Status: Acute Code(s): T50.901A - POISONING BY UNSP DRUG/MEDS/BIOL SUBST, ACCIDENTAL, INIT (4) Bipolar 1 disorder, depressed Status: Acute Code(s): F31.9 - BIPOLAR DISORDER, UNSPECIFIED Plan: This patient is a 27-year-old right-handed white female who was admitted hospital with episode of multiple seizures at home. Patient is living at home with her mother. Several of these events were noted by the mother and initially begins with myoclonic jerks. She was having multiple events at home yesterday in which she became convulsive for at least 30 seconds in duration. They seem to occur back to back. She is brought into the emergency room at [facility] for further evaluation. General when a computed tomography scan of the brain which was negative. The patient apparently had overdosed on gabapentin. She was recently prescribed 21 pills and 13 pills were missing. She was taking gabapentin 800 mg 3 times a day. When questioned about possible drug overdose the patient denies this behavior at this time. We will await a EEG to be done tomorrow morning for review. 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 2 attempts have been made to obtain the EEG including one this morning. The patient ripped off the EEG electrodes and would not allow the radiochemical technician to complete the test. Patient was able to complete EEG testing today. Her EEG was reviewed the results of which are noted above. EEG was abnormal. We have recommended starting the patient on Keppra for seizure prophylaxis. Patient was also able to complete MRI of the brain today. Results of the MRI are as noted above. Currently her neurological diagnosis would be one of a diffuse metabolic encephalopathy. Now with the abnormal EEG she is also to be monitored for seizure disorder. Her overall prognosis at this time remains very guarded. Patient should be kept on seizure precautions during this admission. Case was discussed at length with the patient and her mother at bedside yesterday. They are aware of her guarded condition. The patient was seen by psychiatry today. They're not recommending inpatient psychiatric treatment for the patient at this time. She has been cleared by psychiatry for discharge to home. We are recommending the patient needs to be maintained on her current dose of Keppra 500 mg twice a day. We're waiting the Keppra blood level to return from the laboratory which may take another day. She may be discharged home and should follow-up in the outpatient neurology clinic in 2-3 weeks. Her overall prognosis at this time remains guarded. We will continue close neurological follow-up for this patient during this admission.
== END 2017-08-05 16:44 | disposition home or self-care (01) | DRG 917 ==
LOC: EC 01:34 → 6SEL 04:54 → 4MS4W 11:38
PROVIDERS: ADMIT Hospitalist; ATTEND Hospitalist
DX: T42.6X1A Poisoning by other antiepileptic and sedative-hypnotic drugs, accidental (unintentional), initial encounter (principal); G92 Toxic encephalopathy; G40.411 Other generalized epilepsy and epileptic syndromes, intractable, with status epilepticus; E87.2 Acidosis; N39.0 Urinary tract infection, site not specified; D72.829 Elevated white blood cell count, unspecified; S01.552A Open bite of oral cavity, initial encounter; F41.0 Panic disorder [episodic paroxysmal anxiety]; F31.9 Bipolar disorder, unspecified; F10.10 Alcohol abuse, uncomplicated; M54.30 Sciatica, unspecified side; F17.200 Nicotine dependence, unspecified, uncomplicated; R00.0 Tachycardia, unspecified; R94.01 Abnormal electroencephalogram [EEG]; G47.9 Sleep disorder, unspecified; F19.99 Other psychoactive substance use, unspecified with unspecified psychoactive substance-induced disorder; M51.26 Other intervertebral disc displacement, lumbar region; G43.909 Migraine, unspecified, not intractable, without status migrainosus; M51.36 Other intervertebral disc degeneration, lumbar region; G89.29 Other chronic pain; Z91.14 Patient's other noncompliance with medication regimen; Z91.19 Patient's noncompliance with other medical treatment and regimen; Z82.49 Family history of ischemic heart disease and other diseases of the circulatory system; Z86.79 Personal history of other diseases of the circulatory system; Z91.5 Personal history of self-harm; Z87.81 Personal history of (healed) traumatic fracture; Z79.899 Other long term (current) drug therapy; Z98.84 Bariatric surgery status; Z71.41 Alcohol abuse counseling and surveillance of alcoholic; Z71.51 Drug abuse counseling and surveillance of drug abuser; Z87.828 Personal history of other (healed) physical injury and trauma; Y92.009 Unspecified place in unspecified non-institutional (private) residence as the place of occurrence of the external cause
CPT/HCPCS: 36415; 36600; 70450; 70553; 71010; 80048; 80053; 80177; 80178; 80306; 80320; 81001; 81025; 82550; 82805; 83520; 83605; 85025; 87040; 93005; 95816; 96361; 96372; 96374; 99285

== ENCOUNTER 2018-05-14 02:18 | Emergency (ER) | payer OTHER ==
[2018-05-14 02:23] LABS: Glucose,Whole Blood 200 mg/dL (75-99)
[2018-05-14 02:26] VITALS: BP 129/58; PULSE 111; RESP 16; TEMP 96.9
[2018-05-14 02:38] LABS: Basophils % (A) 0 %; Eosinophils % (A) 0 %; HCT 33.5 % (34.0-46.0); HGB 10.2 gm/dL (11.4-16.0); Hypochromasia Moderate; Lymphocytes # (A) 1.2 k/uL (1.0-4.8); Lymphocytes % (A) 8 %; MCH 27.5 pg (25.0-35.0); MCHC 30.4 g/dL (31.0-37.0); MCV 90.4 fL (80.0-100.0); Mean Platelet Volume 8.8; Monocytes # (A) 0.5 k/uL (0-1.0); Monocytes % (A) 4 %; Neutrophils # (A) 12.1 k/uL (1.3-7.7); Neutrophils % (A) 87 %; Platelet Count 230 k/uL (150-450)
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
[2018-05-14] MEDS ORDERED: LORazepam 2 MG/ML INJ IV STA (02:50)
[2018-05-14 02:52] LABS: ALT 31 U/L (9-52); AST 53 U/L (14-36); Alcohol <10 mg/dL; Alkaline Phosphatase 46 U/L (38-126); Amylase 144 U/L (30-110); Blood Urea Nitrogen 9 mg/dL (7-17); Calcium 8.9 mg/dL (8.4-10.2); Chloride 110 mmol/L (98-107); Glucose 194 mg/dL (74-99); Lipase 84 U/L (23-300); Potassium 3.7 mmol/L (3.5-5.1); Sodium 141 mmol/L (137-145); Total Bilirubin 0.3 mg/dL (0.2-1.3); Total Protein 6.3 g/dL (6.3-8.2)
[2018-05-14 02:54] LABS: Creatine Kinase 158 U/L (30-135)
[2018-05-14 02:57] LABS: Anion Gap 23 mmol/L; Prothrombin Time 10.1 sec (9.0-12.0)
[2018-05-14 02:58] LABS: Partial Thromboplastin Time 19.1 sec (22.0-30.0)
[2018-05-14 03:00] LABS: Carbon Dioxide 8 mmol/L (22-30)
[2018-05-14 03:07] LABS: Creatine Kinase MB 1.6 ng/mL (0.0-2.4); Troponin I <0.012 ng/mL (0.000-0.034)
[2018-05-14] MEDS ORDERED: ONDANSETRON 4 MG/2 ML VIAL ONE ×2 (03:51)
[2018-05-14] MEDS ORDERED: MORPHINE SULFATE 2 MG/ML SYRINGE ONE (03:51)
[2018-05-14] MEDS ORDERED: ceFAZolin IN SWFI 2 GM/20 ML SYRINGE IVP ONE (04:00)
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
--- NOTE | 2018-05-15 09:16 | XR ---
EXAMINATION TYPE: XR tibia fibula LT DATE OF EXAM: 05/14/2018 CLINICAL HISTORY: pain TECHNIQUE: AP and lateral images of the left tibia and fibula are obtained. COMPARISON: None. FINDINGS: Displaced oblique fracture with spiral component distal one third left tibial diaphysis. Di splacement is noted at approximately 9 mm. Additional fracture component identified at the medial mal leolus. No additional fractures seen within the [id number] at this time. Soft tissue edema noted. IMPRESSION: Left tibial fractures as noted. ICD 10 FRACTURE, INITIAL EVALUATION
--- NOTE | 2018-05-16 06:57 | CDI ---
Documentation Clarification OP Dear Dr. Prakash Mcadams Please provide clinical impression & disposition Thank you, Brittany Gutierres Restorative Coordinator If you have any questions, please contact Body Shop Technician at [phone] [facility]
== END 2018-05-14 07:20 | disposition other institution (70) ==
LOC: EC 02:18
DX: S82.392A Other fracture of lower end of left tibia, initial encounter for closed fracture (principal); G40.909 Epilepsy, unspecified, not intractable, without status epilepticus; R41.82 Altered mental status, unspecified; S01.81XA Laceration without foreign body of other part of head, initial encounter; F41.9 Anxiety disorder, unspecified; F32.9 Major depressive disorder, single episode, unspecified; F17.200 Nicotine dependence, unspecified, uncomplicated; Z79.899 Other long term (current) drug therapy; V47.6XXA Car passenger injured in collision with fixed or stationary object in traffic accident, initial encounter; Y92.410 Unspecified street and highway as the place of occurrence of the external cause
CPT/HCPCS: 36415; 93005; 86900; 86901; 80053; 82150; 82550; 82553; 83690; 84484; 85025; 85610; 85730; 86850; 80320; 72170; 73590; 71045; 72125; 70450; 71260; 74177; 99285; 96374; 96375 ×3; 96376 ×2; J2060; Q9967

== ENCOUNTER 2018-05-22 12:03 | Emergency (ER) | payer OTHER ==
[2018-05-22 12:08] VITALS: BP 138/76; PULSE 100; RESP 20; TEMP 98.2
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
== END 2018-05-22 13:07 | disposition home or self-care (01) ==
LOC: EC 12:03
DX: Z48.02 Encounter for removal of sutures (principal); G40.909 Epilepsy, unspecified, not intractable, without status epilepticus; F31.9 Bipolar disorder, unspecified; F41.0 Panic disorder [episodic paroxysmal anxiety]; F17.200 Nicotine dependence, unspecified, uncomplicated; Z79.899 Other long term (current) drug therapy
CPT/HCPCS: 99281

== ENCOUNTER 2018-06-08 23:44 | Emergency (ER) | payer OTHER ==
[2018-06-09] MEDS ORDERED: SODIUM CHLORIDE 0.9% 1,000 ML IV STA (00:17)
[2018-06-09 00:22] LABS: Basophils % (A) 0 %; Eosinophils # (A) 0.1 k/uL (0-0.7); Eosinophils % (A) 3 %; HCT 30.5 % (34.0-46.0); HGB 9.9 gm/dL (11.4-16.0); Hypochromasia Slight; Lymphocytes # (A) 0.9 k/uL (1.0-4.8); Lymphocytes % (A) 21 %; MCH 27.5 pg (25.0-35.0); MCHC 32.5 g/dL (31.0-37.0); Mean Platelet Volume 9.9; Monocytes # (A) 0.3 k/uL (0-1.0); Monocytes % (A) 6 %; Neutrophils # (A) 2.8 k/uL (1.3-7.7); Neutrophils % (A) 68 %; Platelet Count 123 k/uL (150-450); RDW 15.6 % (11.5-15.5); WBC 4.2 k/uL (3.8-10.6)
[2018-06-09 00:27] LABS: MCV 84.6 fL (80.0-100.0)
[2018-06-09 00:32] LABS: ALT 20 U/L (9-52); AST 37 U/L (14-36); Acetaminophen <10.0 ug/mL; Albumin 3.8 g/dL (3.5-5.0); Alkaline Phosphatase 54 U/L (38-126); Anion Gap 10 mmol/L; Blood Urea Nitrogen 4 mg/dL (7-17); Calcium 8.5 mg/dL (8.4-10.2); Carbon Dioxide 21 mmol/L (22-30); Chloride 113 mmol/L (98-107); Glucose 89 mg/dL (74-99); Lithium <0.2 mmol/L; Salicylate <1.0 mg/dL; Sodium 144 mmol/L (137-145); Total Bilirubin 0.5 mg/dL (0.2-1.3); Total Protein 6.7 g/dL (6.3-8.2)
[2018-06-09 00:36] LABS: Potassium 4.7 mmol/L (3.5-5.1)
[2018-06-09 00:37] LABS: Alcohol 260 mg/dL
[2018-06-09 03:17] LABS: Appearance,Urine Clear (Clear); Bacteria,Urine Moderate /hpf; Bilirubin,Urine Negative (Negative); Blood,Urine Negative (Negative); Color,Urine Light Yellow; Glucose,Urine (UA) Negative (Negative); Ketones,Urine Negative (Negative); Leukocyte Esterase,Urine Small (Negative); Nitrite,Urine Positive (Negative); Protein,Urine Negative (Negative); RBC,Urine <1 /hpf (0-5); Specific Gravity,Urine 1.004 (1.001-1.035); Squamous Epithelial Cell,Urine <1 /hpf (0-4); Urobilinogen,Urine <2.0 mg/dL (<2.0); WBC,Urine 7 /hpf (0-5)
[2018-06-09 03:33] LABS: Amphetamine Screen,Urine Not Detected (NotDetected); Barbiturate Screen,Urine Not Detected (NotDetected); Benzodiazepines Screen,Urine Detected (NotDetected); Cocaine Screen,Urine Not Detected (NotDetected); Methadone Screen, Urine Not Detected (NotDetected); Opiate Screen,Urine Not Detected (NotDetected); Oxycodone Screen, Urine Not Detected (NotDetected); Phencyclidine Screen,Urine Not Detected (NotDetected); Tricyclic Antidepressant,Urine Not Detected (NotDetected); Urn Cannabinoid Scrn Not Detected (NotDetected)
--- NOTE | 2018-06-09 03:45 | ED ---
General Adult HPI - General Source: patient, EMS, RN notes reviewed Mode of arrival: EMS Limitations: no limitations <Ward Christine - Last Filed: 06/09/18 05:30> <Dawit Kingston - Last Filed: 06/09/18 11:47> - General Chief complaint: Psychiatric Symptoms Stated complaint: overdose Time Seen by Provider: 06/08/18 23:58 - History of Present Illness Initial comments: 28-year-old female presents to the emergency department by medics for possible overdose. Patient was with her boyfriend at his grandmother's house. Grandmother came home and found them to be unarousable. Grandmother became concerned that they had overdosed on something. In triage patient told the nurse that she took lithium. Amount not identified. Patient does admit to taking lithium tonight to me. Denies taking any other substances. Patient states she is feeling "okay." Patient has no other complaints at this time including shortness of breath, chest pain, abdominal pain, nausea or vomiting, headache, or visual changes. (Ward Christine) - Related Data Previous Rx's Medication Instructions Recorded Cephalexin [Keflex] 500 mg PO Q8HR 10 Days cap 06/09/18 Allergies Allergy/AdvReac Type Severity Reaction Status Date / Time No Known Allergies Allergy Verified 06/09/18 08:51 Review of Systems ROS Other: All systems not noted in ROS Statement are negative. <Ward Christine - Last Filed: 06/09/18 05:30> ROS Other: All systems not noted in ROS Statement are negative. <Dawit Kingston - Last Filed: 06/09/18 11:47> ROS Statement: Those systems with pertinent positive or pertinent negative responses have been documented in the HPI. Past Medical History Past Medical History: Seizure Disorder, Supraventricular Tachycardia (SVT) Additional Past Medical History / Comment(s): SVT with cardiac ablation, lumbar DDD, bulging lumbar disc, seizure per family today 08/01/17 and 07/11/17, ETOH abuse, past hx documented cocaine/opiate/benzodiazepine disorder, migraines, sinus problems, past bilateral arm fractures/casted. History of Any Multi-Drug Resistant Organisms: None Reported Past Surgical History: Bariatric Surgery, Cardiac Ablation, Orthopedic Surgery Additional Past Surgical History / Comment(s): gastric sleeve, EP studies, cardiac ablation for SVT, 03/2017 I &D L wrist. Past Anesthesia/Blood Transfusion Reactions: No Reported Reaction Past Psychological History: Anxiety, Bipolar, Depression, Panic Disorder Smoking Status: Current every day smoker Past Alcohol Use History: Occasional Past Drug Use History: Prescription Drug Abuse - Past Family History Father History Unknown: Yes Mother History Unknown: Yes Sister(s) Additional Family Medical History / Comment(s): Sister had SVT <Ward Christine P - Last Filed: 06/09/18 05:30> General Exam Limitations: no limitations General appearance: obtunded (patient appearing lethargic but easily arousable) Head exam: Present: atraumatic, normocephalic, normal inspection Eye exam: Present: normal appearance, PERRL, EOMI. Absent: scleral icterus, conjunctival injection, nystagmus, periorbital swelling ENT exam: Present: normal exam, normal oropharynx, mucous membranes moist, TM's normal bilaterally, normal external ear exam Neck exam: Present: normal inspection. Absent: tenderness Respiratory exam: Present: normal lung sounds bilaterally. Absent: respiratory distress, wheezes, rales, rhonchi, stridor Cardiovascular Exam: Present: regular rate, normal rhythm, normal heart sounds. Absent: systolic murmur, diastolic murmur, rubs, gallop, clicks GI/Abdominal exam: Present: soft, normal bowel sounds. Absent: distended, tenderness, guarding, rebound, rigid <Ward Christine P - Last Filed: 06/09/18 05:30> Vital Signs 06/08/18 06/09/18 06/09/18 23:54 01:59 03:00 Temperature 98.2 F Pulse Rate 122 H 92 Respiratory 18 15 15 Rate Blood Pressure 152/62 117/63 O2 Sat by Pulse 99 99 Oximetry 06/09/18 06/09/18 06:20 08:37 Temperature 97.8 F Pulse Rate 78 126 H Respiratory 14 18 Rate Blood Pressure 122/59 112/52 O2 Sat by Pulse 97 99 Oximetry EKG Findings - EKG Comments: EKG Findings:: EKG shows sinus tachycardia with a ventricular rate of 101, MS interval 138, to spiritism 78. No evidence for ST elevation. <Ward Christine P - Last Filed: 06/09/18 05:30> Medical Decision Making - Lab Data Result diagrams: 06/09/18 00:00 06/09/18 00:00 <Ward Christine - Last Filed: 06/09/18 05:30> - Lab Data Result diagrams: 06/09/18 00:00 06/09/18 00:00 <Dawit Kingston - Last Filed: 06/09/18 11:47> - Medical Decision Making 28-year-old female presents to the emergency department for possible overdose. Patient apparently took lithium today. Unknown amount. Patient denies thoughts of suicide or harming herself at bedside. Patient was petitioned by police officers. On exam patient does appear lethargic but is arousable. She is not aggressive. Patient oriented to being in the hospital and her name. No acute findings on exam. Patient does have mild UTI and will be treated with Keflex. Patient was mildly tachycardic at 122 on presentation to the ER. Vitals stabilized after some time in the emergency department. Urine drug screen showed benzos detected. Serum alcohol 260. Negative salicylates acetaminophen and lithium. EPS to evaluate after patient sober. CAre taken over by Dr Vallejo of 0530. (Ward Christine) I spoke with the patient she did admit to having suicidal thoughts on a regular basis. Patient admitted to drinking heavily patient admitted to taking multiple benzodiazepines but she doesn't know how many. Patient also admitted to having many overdose suicide attempts in the past. I clinically certified her to be admitted (Dawit Kingston) - Lab Data Lab Results 06/09/18 06/09/18 06/09/18 Range/Units 00:00 00:00 00:00 WBC 4.2 (3.8-10.6) k/uL RBC 3.60 L (3.80-5.40) m/uL Hgb 9.9 L (11.4-16.0) gm/dL Hct 30.5 L (34.0-46.0) % MCV 84.6 D (80.0-100.0) fL MCH 27.5 (25.0-35.0) pg MCHC 32.5 (31.0-37.0) g/dL RDW 15.6 H (11.5-15.5) % Plt Count 123 L (150-450) k/uL Neutrophils % 68 % Lymphocytes % 21 % Monocytes % 6 % Eosinophils % 3 % Basophils % 0 % Neutrophils # 2.8 (1.3-7.7) k/uL Lymphocytes # 0.9 L (1.0-4.8) k/uL Monocytes # 0.3 (0-1.0) k/uL Eosinophils # 0.1 (0-0.7) k/uL Basophils # 0.0 (0-0.2) k/uL Hypochromasia Slight Sodium 144 (137-145) mmol/L Potassium 4.7 (3.5-5.1) mmol/L Chloride 113 H (98-107) mmol/L Carbon Dioxide 21 L (22-30) mmol/L Anion Gap 10 mmol/L BUN 4 L (7-17) mg/dL Creatinine 0.50 L (0.52-1.04) mg/dL Est GFR (CKD-EPI)AfAm >90 (>60 ml/min/1.73 sqM) Est GFR (CKD-EPI)NonAf >90 (>60 ml/min/1.73 sqM) Glucose 89 (74-99) mg/dL Calcium 8.5 (8.4-10.2) mg/dL Total Bilirubin 0.5 (0.2-1.3) mg/dL AST 37 H (14-36) U/L ALT 20 (9-52) U/L Alkaline Phosphatase 54 (38-126) U/L Total Protein 6.7 (6.3-8.2) g/dL Albumin 3.8 (3.5-5.0) g/dL HCG, Qual Not Detected Urine Color Urine Appearance (Clear) Urine pH (5.0-8.0) Ur Specific [place] (1.001-1.035) Urine Protein (Negative) Urine Glucose (UA) (Negative) Urine Ketones (Negative) Urine Blood (Negative) Urine Nitrite (Negative) Urine Bilirubin (Negative) Urine Urobilinogen (<2.0) mg/dL Ur Leukocyte Esterase (Negative) Urine RBC (0-5) /hpf Urine WBC (0-5) /hpf Ur Squamous Epith Cells (0-4) /hpf Urine Bacteria (None) /hpf Salicylates <1.0 mg/dL Urine Opiates Screen (NotDetected) Ur Oxycodone Screen (NotDetected) Urine Methadone Screen (NotDetected) Ur Propoxyphene Screen (NotDetected) Acetaminophen <10.0 ug/mL Ur Barbiturates Screen (NotDetected) U Tricyclic Antidepress (NotDetected) Ur Phencyclidine Scrn (NotDetected) Ur Amphetamines Screen (NotDetected) U Methamphetamines Scrn (NotDetected) U Benzodiazepines Scrn (NotDetected) Kappa <0.2 mmol/L Urine Cocaine Screen (NotDetected) U Marijuana (THC) Screen (NotDetected) Serum Alcohol 260 mg/dL 06/09/18 06/09/18 Range/Units 02:40 02:40 WBC (3.8-10.6) k/uL RBC (3.80-5.40) m/uL Hgb (11.4-16.0) gm/dL Hct (34.0-46.0) % MCV (80.0-100.0) fL MCH (25.0-35.0) pg MCHC (31.0-37.0) g/dL RDW (11.5-15.5) % Plt Count (150-450) k/uL Neutrophils % % Lymphocytes % % Monocytes % % Eosinophils % % Basophils % % Neutrophils # (1.3-7.7) k/uL Lymphocytes # (1.0-4.8) k/uL Monocytes # (0-1.0) k/uL Eosinophils # (0-0.7) k/uL Basophils # (0-0.2) k/uL Hypochromasia Sodium (137-145) mmol/L Potassium (3.5-5.1) mmol/L Chloride (98-107) mmol/L Carbon Dioxide (22-30) mmol/L Anion Gap mmol/L BUN (7-17) mg/dL Creatinine (0.52-1.04) mg/dL Est GFR (CKD-EPI)AfAm (>60 ml/min/1.73 sqM) Est GFR (CKD-EPI)NonAf (>60 ml/min/1.73 sqM) Glucose (74-99) mg/dL Calcium (8.4-10.2) mg/dL Total Bilirubin (0.2-1.3) mg/dL AST (14-36) U/L ALT (9-52) U/L Alkaline Phosphatase (38-126) U/L Total Protein (6.3-8.2) g/dL Albumin (3.5-5.0) g/dL HCG, Qual Urine Color Light Yellow Urine Appearance Clear (Clear) Urine pH 6.0 (5.0-8.0) Ur Specific [place] 1.004 (1.001-1.035) Urine Protein Negative (Negative) Urine Glucose (UA) Negative (Negative) Urine Ketones Negative (Negative) Urine Blood Negative (Negative) Urine Nitrite Positive H (Negative) Urine Bilirubin Negative (Negative) Urine Urobilinogen <2.0 (<2.0) mg/dL Ur Leukocyte Esterase Small H (Negative) Urine RBC <1 (0-5) /hpf Urine WBC 7 H (0-5) /hpf Ur Squamous Epith Cells <1 (0-4) /hpf Urine Bacteria Moderate H (None) /hpf Salicylates mg/dL Urine Opiates Screen Not Detected (NotDetected) Ur Oxycodone Screen Not Detected (NotDetected) Urine Methadone Screen Not Detected (NotDetected) Ur Propoxyphene Screen Not Detected (NotDetected) Acetaminophen ug/mL Ur Barbiturates Screen Not Detected (NotDetected) U Tricyclic Antidepress Not Detected (NotDetected) Ur Phencyclidine Scrn Not Detected (NotDetected) Ur Amphetamines Screen Not Detected (NotDetected) U Methamphetamines Scrn Not Detected (NotDetected) U Benzodiazepines Scrn Detected H (NotDetected) Kappa mmol/L Urine Cocaine Screen Not Detected (NotDetected) U Marijuana (THC) Screen Not Detected (NotDetected) Serum Alcohol mg/dL Disposition <Ward Christine - Last Filed: 06/09/18 05:30> Time of Disposition: 10:14 <Dawit Kingston - Last Filed: 06/09/18 11:47> Clinical Impression: Overdose, Alcohol intoxication, Urinary tract infection Disposition: ADMITTED IP TO THIS HOSP Prescriptions: Cephalexin [Keflex] 500 mg PO Q8HR 10 Days cap Referrals: None,Stated [Primary Care Provider] - 1-2 days
[2018-06-09] MEDS ORDERED: cefTRIAXone IN SWFI 1,000 MG/10 ML SYRINGE IVP STA (08:49)
[2018-06-09 15:52] VITALS: RESP 16
[2018-06-09] MEDS ORDERED: LORazepam 1 MG TAB PO STA (17:03)
[2018-06-09 17:26] VITALS: BP 132/78; PULSE 80; TEMP 98
== END 2018-06-09 17:23 ==
LOC: EC 23:44
DX: T42.4X2A Poisoning by benzodiazepines, intentional self-harm, initial encounter (principal); F10.120 Alcohol abuse with intoxication, uncomplicated; N39.0 Urinary tract infection, site not specified; R53.83 Other fatigue; F17.200 Nicotine dependence, unspecified, uncomplicated; Z98.84 Bariatric surgery status; Z98.890 Other specified postprocedural states; Y90.8 Blood alcohol level of 240 mg/100 ml or more
CPT/HCPCS: 82075; 36415; 93005; 80053; 80178; 85025; 81001; 84703; 80306; 83520 ×2; 80320; 87086; 99285; 96374; 96361; J0696; 87077; 87186

== ENCOUNTER 2018-06-19 18:00 | Emergency (ER) | payer OTHER ==
[2018-06-19 18:15] VITALS: RESP 18
[2018-06-19] MEDS ORDERED: SODIUM CHLORIDE 0.9% 1,000 ML IV STA (19:11)
[2018-06-19] MEDS ORDERED: diphenhydrAMINE 50 MG/ML 1 ML VIAL IVP STA (19:11)
[2018-06-19 19:42] LABS: Basophils % (A) 0 %; Eosinophils # (A) 0.1 k/uL (0-0.7); Eosinophils % (A) 1 %; HCT 33.5 % (34.0-46.0); HGB 10.5 gm/dL (11.4-16.0); Hypochromasia Moderate; Lymphocytes # (A) 2.2 k/uL (1.0-4.8); Lymphocytes % (A) 23 %; MCH 26.4 pg (25.0-35.0); MCHC 31.4 g/dL (31.0-37.0); MCV 84.1 fL (80.0-100.0); Mean Platelet Volume 8.4; Monocytes # (A) 0.3 k/uL (0-1.0); Monocytes % (A) 3 %; Neutrophils # (A) 6.8 k/uL (1.3-7.7); Neutrophils % (A) 71 %; Poikilocytosis Slight; RBC 3.98 m/uL (3.80-5.40); RDW 15.5 % (11.5-15.5); WBC 9.5 k/uL (3.8-10.6)
[2018-06-19] MEDS ORDERED: KETOROLAC 30 MG/ML 1 ML VIAL IVP STA (19:44)
[2018-06-19 19:49] LABS: ALT 20 U/L (9-52); AST 24 U/L (14-36); Albumin 4.1 g/dL (3.5-5.0); Alkaline Phosphatase 76 U/L (38-126); Anion Gap 9 mmol/L; Appearance,Urine Clear (Clear); Bacteria,Urine Rare /hpf; Bilirubin,Urine Negative (Negative); Blood Urea Nitrogen 15 mg/dL (7-17); Blood,Urine Moderate (Negative); Calcium 9.3 mg/dL (8.4-10.2); Carbon Dioxide 21 mmol/L (22-30); Chloride 105 mmol/L (98-107); Color,Urine Yellow; Glucose 124 mg/dL (74-99); Glucose,Urine (UA) Negative (Negative); Hyaline Casts,Urine 5 /lpf (0-2); Ketones,Urine Negative (Negative); Leukocyte Esterase,Urine Negative (Negative); Mucus,Urine Rare /hpf; Nitrite,Urine Negative (Negative); Potassium 4.5 mmol/L (3.5-5.1); Protein,Urine Negative (Negative); RBC,Urine 1 /hpf (0-5); Sodium 135 mmol/L (137-145); Specific Gravity,Urine 1.009 (1.001-1.035); Squamous Epithelial Cell,Urine 1 /hpf (0-4); Total Bilirubin 0.4 mg/dL (0.2-1.3); Total Protein 6.8 g/dL (6.3-8.2); Urobilinogen,Urine <2.0 mg/dL (<2.0); WBC,Urine 4 /hpf (0-5)
[2018-06-19 20:00] LABS: Amphetamine Screen,Urine Not Detected (NotDetected); Barbiturate Screen,Urine Not Detected (NotDetected); Benzodiazepines Screen,Urine Not Detected (NotDetected); Cocaine Screen,Urine Not Detected (NotDetected); Methadone Screen, Urine Not Detected (NotDetected); Opiate Screen,Urine Not Detected (NotDetected); Oxycodone Screen, Urine Not Detected (NotDetected); Phencyclidine Screen,Urine Not Detected (NotDetected); Tricyclic Antidepressant,Urine Detected (NotDetected); Urn Cannabinoid Scrn Not Detected (NotDetected)
[2018-06-19 20:03] LABS: Platelet Count 357 k/uL (150-450)
--- NOTE | 2018-06-19 20:11 | ED ---
General Adult HPI - General Chief complaint: Dizziness Stated complaint: Dizzy, Poss Low Blood Pressure Time Seen by Provider: 06/19/18 18:50 Source: patient, RN notes reviewed Mode of arrival: wheelchair Limitations: no limitations - History of Present Illness Initial comments: 28-year-old female presents to the emergency department for a chief complaint of dizziness 3 days. Patient states she usually feels dizzy when she stands up and walks a few steps. Patient states her vision goes bright. She denies losing consciousness. Patient states she has been stressed lately due to having a lot of things going on in her life and it may be related. She has not been eating or drinking much due to stress. Patient states she has also been congested. She states it was worse yesterday a few days ago but today she did have a lot of nasal drainage. Patient denies cough or sore throat. Patient has no other complaints at this time including shortness of breath, chest pain, abdominal pain, nausea or vomiting, headache, or visual changes. - Related Data Previous Rx's Medication Instructions Recorded Cephalexin [Keflex] 500 mg PO Q8HR 10 Days cap 06/09/18 Allergies Allergy/AdvReac Type Severity Reaction Status Date / Time No Known Allergies Allergy Verified 06/19/18 18:15 Review of Systems ROS Statement: Those systems with pertinent positive or pertinent negative responses have been documented in the HPI. ROS Other: All systems not noted in ROS Statement are negative. Past Medical History Past Medical History: Seizure Disorder, Supraventricular Tachycardia (SVT) Additional Past Medical History / Comment(s): SVT with cardiac ablation, lumbar DDD, bulging lumbar disc, seizure per family today 08/01/17 and 07/11/17, ETOH abuse, past hx documented cocaine/opiate/benzodiazepine disorder, migraines, sinus problems, past bilateral arm fractures/casted. History of Any Multi-Drug Resistant Organisms: ESBL Date of last positivie culture/infection: 06/09/18 MDRO Source:: ESBL URINE Past Surgical History: Bariatric Surgery, Cardiac Ablation, Orthopedic Surgery Additional Past Surgical History / Comment(s): gastric sleeve, EP studies, cardiac ablation for SVT, 03/2017 I &D L wrist. Past Anesthesia/Blood Transfusion Reactions: No Reported Reaction Past Psychological History: Anxiety, Bipolar, Depression, Panic Disorder Smoking Status: Current every day smoker Past Alcohol Use History: Occasional Past Drug Use History: Marijuana, Prescription Drug Abuse - Past Family History Father History Unknown: Yes Mother History Unknown: Yes Sister(s) Additional Family Medical History / Comment(s): Sister had SVT General Exam Limitations: no limitations General appearance: alert, in no apparent distress (sitting in bed cooperative and pleasant) Head exam: Present: atraumatic, normocephalic, normal inspection Eye exam: Present: normal appearance, PERRL, EOMI. Absent: scleral icterus, conjunctival injection, periorbital swelling ENT exam: Present: normal exam, normal oropharynx, mucous membranes moist, TM's normal bilaterally, normal external ear exam, other (nasal congestion) Neck exam: Present: normal inspection, full ROM. Absent: tenderness, meningismus, lymphadenopathy Respiratory exam: Present: normal lung sounds bilaterally. Absent: respiratory distress, wheezes, rales, rhonchi, stridor Cardiovascular Exam: Present: regular rate, normal rhythm, normal heart sounds. Absent: systolic murmur, diastolic murmur, rubs, gallop, clicks GI/Abdominal exam: Present: soft, normal bowel sounds. Absent: distended, tenderness, guarding, rebound, rigid Neurological exam: Present: alert, oriented X3, CN II-XII intact, other (GSC 15) Psychiatric exam: Present: normal affect, normal mood Skin exam: Present: warm, dry, intact, normal color. Absent: rash Course Vital Signs 06/19/18 06/19/18 06/19/18 18:12 20:20 21:15 Temperature 98.1 F 98.4 F Pulse Rate 63 58 L Pulse Rate [ 64 [employer]ibility ] Respiratory 18 18 18 Rate Blood Pressure 93/64 105/53 Blood Pressure 145/79 [Left Arm Sitting] Blood Pressure 103/58 [Left Arm Standing] Blood Pressure 151/49 [Left Arm Supine] O2 Sat by Pulse 100 100 100 Oximetry 06/19/18 21:45 Temperature 97.8 F Pulse Rate Pulse Rate [ 55 L [employer] ] Respiratory 18 Rate Blood Pressure Blood Pressure 103/62 [Left Arm Sitting] Blood Pressure 157/83 [Left Arm Standing] Blood Pressure 106/58 [Left Arm Supine] O2 Sat by Pulse 100 Oximetry EKG Findings - EKG Comments: EKG Findings:: Sinus bradycardia, ventricular rate 45, CA interval 118, QRS duration 84 Medical Decision Making - Medical Decision Making 28-year-old female for dizziness. States going from sitting to standing makes it worse. Patient denies any other complaints at this time. CBC unremarkable. Hemoglobin 10.5 which is increased from last visit. Patient does have moderate blood in the urine but is on her period. Patient does seem to have some orthostatic hypotension from 145/79 sitting to 103/58 standing. This is consistent with patient's dizziness that occurs when she goes from a sitting to standing position. Patient admits that she has not been eating or drinking much because she is stressed. Patient was given 1.5 L of fluids here in the emergency department. Patient's heart rate was 45 on EKG. However otherwise it stayed around 58-64. Patient is ready to go home and is feeling better in the emergency department.Orthostatics did improve in the ED. I did discuss with patient that she needs to continue drinking plenty of fluids. I discussed the importance of following up with primary care or cardiology in one to 2 days about bradycardia as well as hypo-tension and dizziness and patient is aware of this. She is to follow-up in 1-2 days. She is aware to return if she has any worsening symptoms. - Lab Data Result diagrams: 06/19/18 19:28 06/19/18 19:28 Lab Results 06/19/18 06/19/18 06/19/18 Range/Units 19:28 19:28 19:28 WBC 9.5 (3.8-10.6) k/uL RBC 3.98 (3.80-5.40) m/uL Hgb 10.5 L (11.4-16.0) gm/dL Hct 33.5 L (34.0-46.0) % MCV 84.1 (80.0-100.0) fL MCH 26.4 (25.0-35.0) pg MCHC 31.4 (31.0-37.0) g/dL RDW 15.5 (11.5-15.5) % Plt Count 357 D (150-450) k/uL Neutrophils % 71 % Lymphocytes % 23 % Monocytes % 3 % Eosinophils % 1 % Basophils % 0 % Neutrophils # 6.8 (1.3-7.7) k/uL Lymphocytes # 2.2 (1.0-4.8) k/uL Monocytes # 0.3 (0-1.0) k/uL Eosinophils # 0.1 (0-0.7) k/uL Basophils # 0.0 (0-0.2) k/uL Hypochromasia Moderate Poikilocytosis Slight Sodium 135 L (137-145) mmol/L Potassium 4.5 (3.5-5.1) mmol/L Chloride 105 (98-107) mmol/L Carbon Dioxide 21 L (22-30) mmol/L Anion Gap 9 mmol/L BUN 15 (7-17) mg/dL Creatinine 0.92 (0.52-1.04) mg/dL Est GFR (CKD-EPI)AfAm >90 (>60 ml/min/1.73 sqM) Est GFR (CKD-EPI)NonAf 85 (>60 ml/min/1.73 sqM) Glucose 124 H (74-99) mg/dL Calcium 9.3 (8.4-10.2) mg/dL Total Bilirubin 0.4 (0.2-1.3) mg/dL AST 24 (14-36) U/L ALT 20 (9-52) U/L Alkaline Phosphatase 76 (38-126) U/L Total Protein 6.8 (6.3-8.2) g/dL Albumin 4.1 (3.5-5.0) g/dL Urine Color Yellow Urine Appearance Clear (Clear) Urine pH 6.0 (5.0-8.0) Ur Specific [place] 1.009 (1.001-1.035) Urine Protein Negative (Negative) Urine Glucose (UA) Negative (Negative) Urine Ketones Negative (Negative) Urine Blood Moderate H (Negative) Urine Nitrite Negative (Negative) Urine Bilirubin Negative (Negative) Urine Urobilinogen <2.0 (<2.0) mg/dL Ur Leukocyte Esterase Negative (Negative) Urine RBC 1 (0-5) /hpf Urine WBC 4 (0-5) /hpf Ur Squamous Epith Cells 1 (0-4) /hpf Urine Bacteria Rare H (None) /hpf Hyaline Casts 5 H (0-2) /lpf Urine Mucus Rare H (None) /hpf Urine HCG, Qual (Not Detectd) Urine Opiates Screen Not Detected (NotDetected) Ur Oxycodone Screen Not Detected (NotDetected) Urine Methadone Screen Not Detected (NotDetected) Ur Propoxyphene Screen Not Detected (NotDetected) Ur Barbiturates Screen Not Detected (NotDetected) U Tricyclic Antidepress Detected H (NotDetected) Ur Phencyclidine Scrn Not Detected (NotDetected) Ur Amphetamines Screen Not Detected (NotDetected) U Methamphetamines Scrn Not Detected (NotDetected) U Benzodiazepines Scrn Not Detected (NotDetected) Urine Cocaine Screen Not Detected (NotDetected) U Marijuana (THC) Screen Not Detected (NotDetected) 06/19/18 Range/Units 19:28 WBC (3.8-10.6) k/uL RBC (3.80-5.40) m/uL Hgb (11.4-16.0) gm/dL Hct (34.0-46.0) % MCV (80.0-100.0) fL MCH (25.0-35.0) pg MCHC (31.0-37.0) g/dL RDW (11.5-15.5) % Plt Count (150-450) k/uL Neutrophils % % Lymphocytes % % Monocytes % % Eosinophils % % Basophils % % Neutrophils # (1.3-7.7) k/uL Lymphocytes # (1.0-4.8) k/uL Monocytes # (0-1.0) k/uL Eosinophils # (0-0.7) k/uL Basophils # (0-0.2) k/uL Hypochromasia Poikilocytosis Sodium (137-145) mmol/L Potassium (3.5-5.1) mmol/L Chloride (98-107) mmol/L Carbon Dioxide (22-30) mmol/L Anion Gap mmol/L BUN (7-17) mg/dL Creatinine (0.52-1.04) mg/dL Est GFR (CKD-EPI)AfAm (>60 ml/min/1.73 sqM) Est GFR (CKD-EPI)NonAf (>60 ml/min/1.73 sqM) Glucose (74-99) mg/dL Calcium (8.4-10.2) mg/dL Total Bilirubin (0.2-1.3) mg/dL AST (14-36) U/L ALT (9-52) U/L Alkaline Phosphatase (38-126) U/L Total Protein (6.3-8.2) g/dL Albumin (3.5-5.0) g/dL Urine Color Urine Appearance (Clear) Urine pH (5.0-8.0) Ur Specific [place] (1.001-1.035) Urine Protein (Negative) Urine Glucose (UA) (Negative) Urine Ketones (Negative) Urine Blood (Negative) Urine Nitrite (Negative) Urine Bilirubin (Negative) Urine Urobilinogen (<2.0) mg/dL Ur Leukocyte Esterase (Negative) Urine RBC (0-5) /hpf Urine WBC (0-5) /hpf Ur Squamous Epith Cells (0-4) /hpf Urine Bacteria (None) /hpf Hyaline Casts (0-2) /lpf Urine Mucus (None) /hpf Urine HCG, Qual Not Detected (Not Detectd) Urine Opiates Screen (NotDetected) Ur Oxycodone Screen (NotDetected) Urine Methadone Screen (NotDetected) Ur Propoxyphene Screen (NotDetected) Ur Barbiturates Screen (NotDetected) U Tricyclic Antidepress (NotDetected) Ur Phencyclidine Scrn (NotDetected) Ur Amphetamines Screen (NotDetected) U Methamphetamines Scrn (NotDetected) U Benzodiazepines Scrn (NotDetected) Urine Cocaine Screen (NotDetected) U Marijuana (THC) Screen (NotDetected) Disposition Clinical Impression: Orthostatic hypotension, Dizziness, Bradycardia Disposition: HOME SELF-CARE Condition: Good Instructions: Bradycardia (ED), Dizziness (ED) Additional Instructions: Please drink plenty of fluids. Please follow-up with primary care in 1-2 days. Return to the emergency department if you have any worsening symptoms. Is patient prescribed a controlled substance at d/c from ED?: No Referrals: Davis Lopez MD [STAFF PHYSICIAN] - 1-2 days Paul Magallanes MD [STAFF PHYSICIAN] - 1-2 days Time of Disposition: 20:40
[2018-06-19] MEDS ORDERED: SODIUM CHLORIDE 0.9% 500 ML IV STA (20:19)
[2018-06-19 21:46] VITALS: BP 106/58; PULSE 55; TEMP 97.8
== END 2018-06-19 22:11 | disposition home or self-care (01) ==
LOC: EC 18:00
DX: I95.1 Orthostatic hypotension (principal); R00.1 Bradycardia, unspecified; F17.200 Nicotine dependence, unspecified, uncomplicated; Z98.84 Bariatric surgery status; Z98.890 Other specified postprocedural states
CPT/HCPCS: 36415; 93005; 80053; 85025; 81001; 81025; 80306; 99284; 96374; 96375; 96361; J1200; J1885

== ENCOUNTER 2019-06-17 18:55 | Emergency (ER) | payer OTHER ==
[2019-06-17] MEDS ORDERED: SODIUM CHLORIDE 0.9% 1,000 ML IV STA (19:12)
[2019-06-17] MEDS ORDERED: FAMOTIDINE 20 MG/2 ML VIAL IV STA (19:12)
[2019-06-17] MEDS ORDERED: ONDANSETRON 4 MG/2 ML VIAL IVP STA (19:13)
--- NOTE | 2019-06-17 19:17 | ED ---
General Adult HPI - General Chief complaint: Dizziness Stated complaint: Dizzy, shaky Time Seen by Provider: 06/17/19 19:01 Source: patient Mode of arrival: wheelchair Limitations: no limitations - History of Present Illness Initial comments: 29-year-old female patient presents to the emergency department today with complaints of dizziness, shakiness, and a tight feeling in her midepigastric region. Patient states this started a couple of hours ago. Patient states that she has felt nauseated with this. She has had no vomiting today. Patient denie s any new medications, drug use, alcohol use. Patient states she feels very "weird". Patient reports history of gastric sleeve procedure in 2010. States she's had no difficulties with this procedure. States she is eating like usual today. During physical exam and history taken patient is very agitated and fidgety. Patient denies any recent rash, fever, chills, shortness breath, chest pain, diarrhea, constipation, back pain, numbness, tingling, hematuria, dysuria, urinary urgency, urinary frequency, headache, visual changes, or any other complaints. - Related Data Home Medications Medication Instructions Recorded Confirmed Ibuprofen [Motrin Ib] 800 mg PO TID PRN 06/17/19 06/17/19 Allergies Allergy/AdvReac Type Severity Reaction Status Date / Time No Known Allergies Allergy Verified 06/17/19 19:14 Review of Systems ROS Statement: Those systems with pertinent positive or pertinent negative responses have been documented in the HPI. ROS Other: All systems not noted in ROS Statement are negative. Past Medical History Past Medical History: Seizure Disorder, Supraventricular Tachycardia (SVT) Additional Past Medical History / Comment(s): SVT with cardiac ablation, lumbar DDD, bulging lumbar disc, seizure per family today 08/01/17 and 07/11/17, ETOH abuse, past hx documented cocaine/opiate/benzodiazepine disorder, migraines, sinus problems, past bilateral arm fractures/casted. History of Any Multi-Drug Resistant Organisms: ESBL Date of last positivie culture/infection: 06/09/18 MDRO Source:: ESBL URINE Past Surgical History: Bariatric Surgery, Cardiac Ablation, Orthopedic Surgery Additional Past Surgical History / Comment(s): gastric sleeve, EP studies, cardiac ablation for SVT, 03/2017 I &D L wrist. Past Anesthesia/Blood Transfusion Reactions: No Reported Reaction Past Psychological History: Anxiety, Bipolar, Depression, Panic Disorder Smoking Status: Current every day smoker Past Alcohol Use History: Occasional Past Drug Use History: Marijuana, Prescription Drug Abuse - Past Family History Father History Unknown: Yes Mother History Unknown: Yes Sister(s) Additional Family Medical History / Comment(s): Sister had SVT General Exam Limitations: no limitations General appearance: alert, in no apparent distress, other (Physical well- developed, well-nourished adult female patient in no acute distress. Vital signs upon presentation are temperature 98.4F, pulse 103, respirations 16, blood pressure 131/86, pulse ox 95% on room air.) Eye exam: Present: normal appearance, PERRL, EOMI. Absent: scleral icterus, conjunctival injection, periorbital swelling ENT exam: Present: normal exam, normal oropharynx, mucous membranes moist Respiratory exam: Present: normal lung sounds bilaterally. Absent: respiratory distress, wheezes, rales, rhonchi, stridor Cardiovascular Exam: Present: normal rhythm, tachycardia, normal heart sounds. Absent: systolic murmur, diastolic murmur, rubs, gallop, clicks GI/Abdominal exam: Present: soft, tenderness (Midepigastric tenderness), normal bowel sounds. Absent: distended, guarding, rebound, rigid Neurological exam: Present: alert, oriented X3, CN II-XII intact Psychiatric exam: Present: normal affect, normal mood Skin exam: Present: warm, dry, intact, normal color. Absent: rash Course Vital Signs 06/17/19 18:56 Temperature 98.4 F Pulse Rate 103 H Respiratory 16 Rate Blood Pressure 131/86 O2 Sat by Pulse 95 Oximetry EKG Findings - EKG Comments: EKG Findings:: EKG obtained at 1952 shows normal sinus rhythm with a ventricular rate of 77, MD interval 134, QRS duration 84, QT 400, QTC 452. No evidence of ST elevation or depression. Medical Decision Making - Medical Decision Making 29-year-old female patient presented to the emergency department today for evaluation of dizziness, tightness feeling in her abdomen, and shakiness. Physical examination is unremarkable. She is neurologically intact with no focal deficits. There is no abdominal tenderness. Labs reviewed and did reveal mild anemia with hemoglobin of 9.9 which is chronic for the patient. Drug screen was positive for amphetamines and benzos. Upon reevaluation patient does report improvement of symptoms. States her abdominal symptoms have completely resolved. Patient states that she does take Adderall occasionally and m edication for anxiety. She states these are not prescribed to her. She also admits to a history of opiate addiction states that she hasn't had any in a few days and may be experiencing withdrawal. Did discuss findings and results with her. We did discuss withdrawals as a possible cause for her symptoms. She is instructed to increase fluids, rest. She is instructed to follow-up with her primary care physician for recheck in 1-2 days. Return parameters discussed in detail. She verbalizes understanding and agrees with this plan. - Lab Data Result diagrams: 06/17/19 19:45 06/17/19 19:45 Lab Results 06/17/19 06/17/19 06/17/19 Range/Units 19:45 19:45 20:30 WBC 7.0 (3.8-10.6) k/uL RBC 3.55 L (3.80-5.40) m/uL Hgb 9.9 L (11.4-16.0) gm/dL Hct 30.0 L (34.0-46.0) % MCV 84.7 (80.0-100.0) fL MCH 28.0 (25.0-35.0) pg MCHC 33.1 (31.0-37.0) g/dL RDW 16.2 H (11.5-15.5) % Plt Count 197 (150-450) k/uL Neutrophils % 60 % Lymphocytes % 31 % Monocytes % 5 % Eosinophils % 1 % Basophils % 0 % Neutrophils # 4.2 (1.3-7.7) k/uL Lymphocytes # 2.2 (1.0-4.8) k/uL Monocytes # 0.4 (0-1.0) k/uL Eosinophils # 0.1 (0-0.7) k/uL Basophils # 0.0 (0-0.2) k/uL Anisocytosis Slight Sodium 141 (137-145) mmol/L Potassium 3.6 (3.5-5.1) mmol/L Chloride 107 (98-107) mmol/L Carbon Dioxide 21 L (22-30) mmol/L Anion Gap 13 mmol/L BUN 17 (7-17) mg/dL Creatinine 0.80 (0.52-1.04) mg/dL Est GFR (CKD-EPI)AfAm >90 (>60 ml/min/1.73 sqM) Est GFR (CKD-EPI)NonAf >90 (>60 ml/min/1.73 sqM) Glucose 81 (74-99) mg/dL Calcium 8.6 (8.4-10.2) mg/dL Total Bilirubin <0.1 L (0.2-1.3) mg/dL AST 27 (14-36) U/L ALT 17 (9-52) U/L Alkaline Phosphatase 66 (38-126) U/L Total Protein 6.8 (6.3-8.2) g/dL Albumin 4.1 (3.5-5.0) g/dL Lipase 152 (23-300) U/L Urine Color Yellow Urine Appearance Cloudy H (Clear) Urine pH 6.5 (5.0-8.0) Ur Specific Nash 1.026 (1.001-1.035) Urine Protein 1+ H (Negative) Urine Glucose (UA) Negative (Negative) Urine Ketones Negative (Negative) Urine Blood Negative (Negative) Urine Nitrite Negative (Negative) Urine Bilirubin Negative (Negative) Urine Urobilinogen <2.0 (<2.0) mg/dL Ur Leukocyte Esterase Negative (Negative) Urine RBC 20 H (0-5) /hpf Urine WBC 6 H (0-5) /hpf Ur Squamous Epith Cells 9 H (0-4) /hpf Calcium Oxalate Crystal Occasional H (None) /hpf Urine Mucus Rare H (None) /hpf Urine Opiates Screen Not Detected (NotDetected) Ur Oxycodone Screen Not Detected (NotDetected) Urine Methadone Screen Not Detected (NotDetected) Ur Propoxyphene Screen Not Detected (NotDetected) Ur Barbiturates Screen Not Detected (NotDetected) U Tricyclic Antidepress Not Detected (NotDetected) Ur Phencyclidine Scrn Not Detected (NotDetected) Ur Amphetamines Screen Detected H (NotDetected) U Methamphetamines Scrn Not Detected (NotDetected) U Benzodiazepines Scrn Detected H (NotDetected) Urine Cocaine Screen Not Detected (NotDetected) U Marijuana (THC) Screen Not Detected (NotDetected) Disposition Clinical Impression: Polysubstance abuse, Dizziness, Anemia Disposition: HOME SELF-CARE Condition: Good Instructions (If sedation given, give patient instructions): Polysubstance Abuse (ED), Dizziness (ED), Anemia (ED) Additional Instructions: Avoid use of medications not prescribed to you. Increase fluids. Rest. Follow-up to primary care physician for recheck in 1-2 days. Return to the emergency department immediately for any new, worsening, or concerning symptoms. Is patient prescribed a controlled substance at d/c from ED?: No Referrals: None,Stated [Primary Care Provider] - 1-2 days Time of Disposition: 21:19
[2019-06-17 19:55] LABS: Anisocytosis Slight; Basophils % (A) 0 %; Eosinophils # (A) 0.1 k/uL (0-0.7); Eosinophils % (A) 1 %; HGB 9.9 gm/dL (11.4-16.0); Lymphocytes # (A) 2.2 k/uL (1.0-4.8); Lymphocytes % (A) 31 %; MCHC 33.1 g/dL (31.0-37.0); MCV 84.7 fL (80.0-100.0); Mean Platelet Volume 8.2; Monocytes # (A) 0.4 k/uL (0-1.0); Monocytes % (A) 5 %; Neutrophils # (A) 4.2 k/uL (1.3-7.7); Neutrophils % (A) 60 %; Platelet Count 197 k/uL (150-450); RBC 3.55 m/uL (3.80-5.40); RDW 16.2 % (11.5-15.5)
[2019-06-17 20:05] LABS: ALT 17 U/L (9-52); AST 27 U/L (14-36); African American GFR (CKD) >90 (>60 ml/min/1.73 sqM); Albumin 4.1 g/dL (3.5-5.0); Alkaline Phosphatase 66 U/L (38-126); Anion Gap 13 mmol/L; Blood Urea Nitrogen 17 mg/dL (7-17); Calcium 8.6 mg/dL (8.4-10.2); Carbon Dioxide 21 mmol/L (22-30); Chloride 107 mmol/L (98-107); Glucose 81 mg/dL (74-99); Non-African American GFR(CKD) >90 (>60 ml/min/1.73 sqM); Potassium 3.6 mmol/L (3.5-5.1); Sodium 141 mmol/L (137-145); Total Bilirubin <0.1 mg/dL (0.2-1.3); Total Protein 6.8 g/dL (6.3-8.2)
[2019-06-17 20:51] LABS: Appearance,Urine Cloudy (Clear); Bilirubin,Urine Negative (Negative); Blood,Urine Negative (Negative); Calcium Oxalate Crystals,Urine Occasional /hpf; Color,Urine Yellow; Glucose,Urine (UA) Negative (Negative); Ketones,Urine Negative (Negative); Leukocyte Esterase,Urine Negative (Negative); Mucus,Urine Rare /hpf; Nitrite,Urine Negative (Negative); PH, Urine 6.5 (5.0-8.0); Protein,Urine 1+ (Negative); RBC,Urine 20 /hpf (0-5); Specific Gravity,Urine 1.026 (1.001-1.035); Squamous Epithelial Cell,Urine 9 /hpf (0-4); Urobilinogen,Urine <2.0 mg/dL (<2.0); WBC,Urine 6 /hpf (0-5)
[2019-06-17 21:09] LABS: Amphetamine Screen,Urine Detected (NotDetected); Barbiturate Screen,Urine Not Detected (NotDetected); Benzodiazepines Screen,Urine Detected (NotDetected); Cocaine Screen,Urine Not Detected (NotDetected); Methadone Screen, Urine Not Detected (NotDetected); Opiate Screen,Urine Not Detected (NotDetected); Oxycodone Screen, Urine Not Detected (NotDetected); Phencyclidine Screen,Urine Not Detected (NotDetected); Tricyclic Antidepressant,Urine Not Detected (NotDetected); Urn Cannabinoid Scrn Not Detected (NotDetected)
[2019-06-17 21:38] VITALS: BP 125/79; PULSE 75; RESP 20; TEMP 97.5
== END 2019-06-17 21:42 | disposition home or self-care (01) ==
LOC: EC 18:55
DX: F19.10 Other psychoactive substance abuse, uncomplicated (principal); D53.9 Nutritional anemia, unspecified; F10.10 Alcohol abuse, uncomplicated; F41.9 Anxiety disorder, unspecified; F17.200 Nicotine dependence, unspecified, uncomplicated; Z79.899 Other long term (current) drug therapy; Z98.84 Bariatric surgery status; Z16.12 Extended spectrum beta lactamase (ESBL) resistance
CPT/HCPCS: 36415; 93005; 80053; 83690; 85025; 81001; 80306; 96374; 96375; 96361 ×2; 99284; J2405

== ENCOUNTER 2020-10-13 16:39 | Inpatient (IN) | payer MEDICAID, OTHER ==
[2020-10-13 17:44] LABS: Amphetamine Screen,Urine Not Detected (NotDetected); Barbiturate Screen,Urine Not Detected (NotDetected); Benzodiazepines Screen,Urine Not Detected (NotDetected); Cocaine Screen,Urine Not Detected (NotDetected); Methadone Screen, Urine Not Detected (NotDetected); Opiate Screen,Urine Not Detected (NotDetected); Oxycodone Screen, Urine Not Detected (NotDetected); Phencyclidine Screen,Urine Not Detected (NotDetected); Tricyclic Antidepressant,Urine Not Detected (NotDetected); Urn Cannabinoid Scrn Not Detected (NotDetected)
--- NOTE | 2020-10-13 17:47 | ED ---
General Adult HPI - General Chief complaint: Psychiatric Symptoms Stated complaint: Mental Health Time Seen by Provider: 10/13/20 17:05 Source: patient Mode of arrival: ambulatory Limitations: no limitations - History of Present Illness Initial comments: Patient presents the ED complaining of having suicidal ideations. Patient states that her mother a few months ago, and she states that her mother was her best friend. Patient states that she has felt very depressed recently, and she states that she has developed thoughts of suicide. Patient states that she has had a plan to overdose on heroin, but she denies doing so. Patient states that she has not used heroin in the past 7 months. Patient admits to drinking a little bit of whiskey earlier today. Patient denies any other illicit drug use, and she denies medication abuse or overdose. Patient denies suicidal attempt, homicidal ideations, hallucinations, any pain, trauma or injury, fever or chills, cough or cold symptoms, dyspnea, dizziness, nausea/vomiting/diarrhea, or any other symptoms or complaints. - Related Data Home Medications Medication Instructions Recorded Confirmed Ibuprofen [Motrin Ib] 800 mg PO TID PRN 06/17/19 06/17/19 Allergies Allergy/AdvReac Type Severity Reaction Status Date / Time trazodone Allergy dizziness Verified 10/13/20 16:45 Review of Systems ROS Statement: Those systems with pertinent positive or pertinent negative responses have been documented in the HPI. ROS Other: All systems not noted in ROS Statement are negative. Past Medical History Past Medical History: Seizure Disorder, Supraventricular Tachycardia (SVT) Additional Past Medical History / Comment(s): SVT with cardiac ablation, lumbar DDD, bulging lumbar disc, seizure per family today 08/01/17 and 07/11/17, ETOH abuse, past hx documented cocaine/opiate/benzodiazepine disorder, migraines, sinus problems, past bilateral arm fractures/casted. History of Any Multi-Drug Resistant Organisms: ESBL Date of last positivie culture/infection: 06/09/18 MDRO Source:: ESBL URINE Past Surgical History: Bariatric Surgery, Cardiac Ablation, Orthopedic Surgery Additional Past Surgical History / Comment(s): gastric sleeve, EP studies, cardiac ablation for SVT, 03/2017 I &D L wrist. Past Anesthesia/Blood Transfusion Reactions: No Reported Reaction Past Psychological History: Anxiety, Bipolar, Depression, Panic Disorder Smoking Status: Current every day smoker Past Alcohol Use History: Occasional Past Drug Use History: Marijuana, Prescription Drug Abuse - Past Family History Father History Unknown: Yes Mother History Unknown: Yes Sister(s) Additional Family Medical History / Comment(s): Sister had SVT General Exam Limitations: no limitations General appearance: alert, in no apparent distress Head exam: Present: atraumatic, normocephalic Eye exam: Present: normal appearance, PERRL, EOMI ENT exam: Present: mucous membranes moist Neck exam: Present: other (Trachea is in midline) Respiratory exam: Present: normal lung sounds bilaterally. Absent: respiratory distress, wheezes, rales, rhonchi Cardiovascular Exam: Present: regular rate, normal rhythm, normal heart sounds, other (Normal radial pulses bilaterally) GI/Abdominal exam: Present: soft. Absent: distended, tenderness, guarding Extremities exam: Present: normal inspection. Absent: pedal edema Neurological exam: Present: alert, oriented X3. Absent: motor sensory deficit Psychiatric exam: Present: anxious, other (Tearful) Skin exam: Present: warm, dry, intact, normal color Course Vital Signs 10/13/20 10/13/20 10/13/20 16:40 17:44 18:15 Temperature 98.3 F Pulse Rate 111 H Respiratory 20 18 18 Rate Blood Pressure 150/95 O2 Sat by Pulse 99 Oximetry - Reevaluation(s) Reevaluation #1: 10/13/20 19:54 EPS nurse has evaluated the patient in the ED. She states that she has found psychiatric placement for the patient. She recommends discharging the patient from the ED at this time. Medical Decision Making - Medical Decision Making Patient is medically stable. Psychiatric placement has been found for the patient by EPS nurse. - Lab Data Lab Results 10/13/20 10/13/20 10/13/20 Range/Units 17:26 17:26 18:14 Urine HCG, Qual Not Detected (Not Detectd) Urine Opiates Screen Not Detected (NotDetected) Ur Oxycodone Screen Not Detected (NotDetected) Urine Methadone Screen Not Detected (NotDetected) Ur Propoxyphene Screen Not Detected (NotDetected) Ur Barbiturates Screen Not Detected (NotDetected) U Tricyclic Antidepress Not Detected (NotDetected) Ur Phencyclidine Scrn Not Detected (NotDetected) Ur Amphetamines Screen Not Detected (NotDetected) U Methamphetamines Scrn Not Detected (NotDetected) U Benzodiazepines Scrn Not Detected (NotDetected) Urine Cocaine Screen Not Detected (NotDetected) U Marijuana (THC) Screen Not Detected (NotDetected) Coronavirus (PCR) Not Detected (Not Detectd) Disposition Clinical Impression: Suicidal ideations Disposition: TRANSFER TO PSYCH HOSP/UNIT Condition: Stable Is patient prescribed a controlled substance at d/c from ED?: No Referrals: Tony Connolly MD [Primary Care Provider] - 1-2 days Time of Disposition: 19:56
[2020-10-13] MEDS ORDERED: ZIPRASIDONE 20 MG VIAL IM PRN (20:01)
[2020-10-13] MEDS ORDERED: MAGNESIUM HYDROXIDE 2,400 MG/10 ML CUP PO PRN (20:01)
[2020-10-13] MEDS ORDERED: MAG HYDROX/AL HYDROX/SIMETH 30 ML CUP PO PRN (20:01)
[2020-10-13] MEDS ORDERED: hydrOXYzine HCL 50 MG/ML 1 ML VIAL IM PRN (20:05)
[2020-10-13] MEDS: hydrOXYzine pamoate 25 MG CAP PO PRN (21:38)
[2020-10-14] MEDS: NICOTINE 14MG/24HR PATCH TRANSDERM SCH (08:45)
[2020-10-14] MEDS: hydrOXYzine pamoate 25 MG CAP PO PRN ×2 (08:45→18:32)
--- NOTE | 2020-10-14 12:29 | P.HP ---
Psychiatric H&P - . H&P Date: 10/14/20 History & Physical: IDENTIFYING DATA: Adelita is a 30-year-old single female who presented to emergency room with complaints of suicidal ideation and depression and grief over the of her mother. HISTORY OF PRESENT ILLNESS: She is known to this unit from her prior admissions. She was last discharged from the unit with the diagnoses of borderline personality disorder, adjustment disorder with mixed disturbance of mood and conduct, alcohol intoxication and alcohol use disorder. Although [facility] she did not follow through with the referral. Unlike prior admissions she admitted to history of substance use problems. She talked about her history of opiate use and problems as a result of her opiate use. She complained of increasing depression and anxiety over the holiday. Her mother of an opiate overdose and March 2020 and this is her first Thanksgiving since her mother's ; "I always spend Thanksgiving with her mother". She has thoughts of and suicide but denied intent or plan. She believes that if she were to suicide then she would "never see her mother again." She revealed that her mother would use drugs together and suggested that her mother introduced her to opiates She is been abstinence from opiates since she was incarcerated since April 2020. She talked about difficulty with withdrawing from opiates while she was in [facility]. She served 100 days for violation of probation regarding a prior possession charge. She was released from [facility] in July and she is on 12 months of probation. Since her release from [facility] her primary, Dr. Connolly, prescribed Suboxone up to 24 mg. He switched her over to Sublocade 300 mg IM on 09/27/2020. Her next injection is due on 10/15/2020. We confirmed by [facility] that Dr. Connolly has prescribed her clonazepam 1 mg 3 times a day and Lyrica 300 mg 3 times a day. He has been prescribing her 10 day supplies of both medications. She last abstained a prescription for both on 10/11/2020 and alleges that she has not entirely used up this prescription. She also described other psychotropic medications for complaints of anxiety and depression including prazosin, sertraline, gabapentin, duloxetine and most recently Vraylar. During interview she was most concerned about obtaining prescriptions of Klonopin, Lyrica and Suboxone. She became distressed when I explained that we do not have Suboxone, Subutex or Soblocade. She was quite dramatic in her presentation and described an overwhelming subjective symptoms of depression and anxiety. She became depressed and tearful as she talked about her mother and her mother's . She feels guilty that she may have contributed to her mother's drug use and overdose and feels that she is a disappointment because benefit her to "get clean." PAST PSYCHIATRIC HISTORY: This is her seventh admission to our psychiatric unit. [facility] related to drug overdoses, alcohol intoxication, substance withdrawal and seizures. She has been diagnosed with multiple conditions including bipolar disorder generalized and anxiety disorder, alcohol use disorder, opiate use disorder and borderline personality disorder. She has not received services through [facility] since 2017. She had a intake assessment August of this year and was assigned a substance abuse reporting specialist. PAST MEDICAL HISTORY: She has history of chronic hepatitis C, seizure disorder and status post gastric sleeve. ALLERGIES: Trazodone SUBSTANCE USE HISTORY: She was more forthcoming about her substance use than she had during prior hospitalizations. She was drinking alcohol prior to this admission and has used opiates for much of her adult life. She talked about having experienced several opiate overdoses. She has been treated with Suboxone for the opiate use disorder and she had one admission to [facility] for treatment of alcohol and opiate use disorder. Her UDS was negative for drugs of abuse. Her BAL was .04. FAMILY PSYCHIATRIC/SUBSTANCE USE HISTORY: Her mother and sister and a history of opiate use disorder. Her father has a history of cocaine use disorder and a mental illness. Her maternal grandmother and one of her uncles by suicide. LEGAL HISTORY: She is sure currently on probation for possession of controlled substances. Her sister recently obtained guardianship and conservatorship. SOCIAL HISTORY: Her parents are . She is single and has no children. She is a strong family history of substance use and substance use problems. Her mother by overdose in March 2020. She graduated from high school. She has never been employed. She has no stable income. Her and her sister were beneficiaries of her mother's life insurance policy. Her sister obtained guardianship and conservatorship because she was concerned that the patient would spend this money on drugs. She has no stable housing and lives between friends and family. MENTAL STATUS EXAM: She presented as a casually groomed stocky 30-year-old female who was pleasant on approach. She made eye contact and attended to the interview. She had no distinguishing features or prominent physical abnormalities. She had a blunted facial expression. She is alert and oriented to person, place and time. She had slight psychomotor retardation but no abnormal involuntary movements. She had a steady gait. Her speech was spontaneous with normal rate, rhythm and volume. She had no articulation difficulties. Her affect was depressed and dramatic. She expressed suicidal ideation but denied wishes and homicidal ideation. She specifically feelings of hopelessness and helplessness particularly when talking about the of her mother. She ruminated over the of her mother. She is not e [employer] ideas reference, paranoid ideation or delusions. Her thinking was abstract and associations were coherent, logical and goal directed. She denied hallucinations did not appear to be responding to internal stimuli. Global impression of intellect is average. She is aware of illness and need for treatment. STRENGTHS: Relatively good health, access to housing options, engagement with outpatient medical care WEAKNESSES: Substance use disorders IMPRESSION: She is a 30-year-old single female admitted to psychiatric unit voluntarily with complaints of depression and suicidal ideation. She complained that this her mood is worse and she had thoughts of suicide because this was the first Thanksgiving that she has not celebrated with her mother. Her mother of a opiate overdose in March 2020. She described increased drinking and thoughts of suicide without intent or plan. She has long history of opiate use and alcohol use problems as well as dramatic subjective complaints of anxiety and depression. She alleges abstinence from opiates since she was incarcerated and is receiving opiate substitution by her outpatient physician. She benefit from a brief episodes of inpatient treatment and multimodal therapy. PRINCIPLE DIAGNOSIS: Suicidal ideation, unspecified mood disorder, alcohol use disorder severe, opiate use disorder on agonist therapy, borderline personality disorder RECOMMENDATION: The mental psychiatric unit. Safety precautions. Consult medicine for initial physical exam and medical history. 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 Continue Klonopin 1 mg 3 times a day and Lyrica 200 mg 3 times a day (the doses were confirmed on [facility]). Without the need for treatment with a mood stabilizer a nd/or antidepressant. She will need to follow up with her primary care provider regarding opiate substitution. Encourage participation in therapeutic groups and activities. Evaluate clinical status response to treatment on a daily basis. Allergies Allergy/AdvReac Type Severity Reaction Status Date / Time trazodone Allergy dizziness Verified 10/13/20 16:45 Vital Signs Temp 98.3 F 10/14/20 06:19 Pulse 69 10/14/20 06:19 Resp 16 10/13/20 21:21 BP 133/80 10/14/20 06:19 Pulse Ox 99 10/13/20 16:40 Intake & Output 10/13/20 10/14/20 10/14/20 18:59 06:59 18:59 Weight 87.543 kg Laboratory Last Values Urine HCG, Qual Not Detected (Not Detectd) 10/13/20 17:26 Urine Opiates Screen Not Detected (NotDetected) 10/13/20 17:26 Ur Oxycodone Screen Not Detected (NotDetected) 10/13/20 17:26 Urine Methadone Screen Not Detected (NotDetected) 10/13/20 17:26 Ur Propoxyphene Screen Not Detected (NotDetected) 10/13/20 17:26 Ur Barbiturates Screen Not Detected (NotDetected) 10/13/20 17:26 U Tricyclic Antidepress Not Detected (NotDetected) 10/13/20 17:26 Ur Phencyclidine Scrn Not Detected (NotDetected) 10/13/20 17:26 Ur Amphetamines Screen Not Detected (NotDetected) 10/13/20 17:26 U Methamphetamines Scrn Not Detected (NotDetected) 10/13/20 17:26 U Benzodiazepines Scrn Not Detected (NotDetected) 10/13/20 17:26 Urine Cocaine Screen Not Detected (NotDetected) 10/13/20 17:26 U Marijuana (THC) Screen Not Detected (NotDetected) 10/13/20 17:26 Coronavirus (PCR) Not Detected (Not Detectd) 10/13/20 18:14 10/14/20 11:44 10/14/20 12:14
[2020-10-14] MEDS: clonazePAM 1 MG TAB PO SCH ×2 (15:08→20:20)
[2020-10-14] MEDS: PREGABALIN 100 MG CAP PO SCH ×2 (15:08→20:20)
[2020-10-15] MEDS: hydrOXYzine pamoate 25 MG CAP PO PRN ×2 (05:29→11:34)
[2020-10-15] MEDS: ACETAMINOPHEN TAB 325 MG TAB PO PRN (05:30)
[2020-10-15] MEDS: PREGABALIN 100 MG CAP PO SCH ×3 (08:01→21:00)
[2020-10-15] MEDS: clonazePAM 1 MG TAB PO SCH ×3 (08:02→21:00)
[2020-10-15] MEDS: NICOTINE 14MG/24HR PATCH TRANSDERM SCH (08:02)
[2020-10-15] MEDS: MULTIVITAMINS, THERA 1 EACH TAB PO SCH (08:02)
[2020-10-15 09:52] LABS: Basophils % (A) 1 %; Eosinophils # (A) 0.1 k/uL (0-0.7); Eosinophils % (A) 4 %; HCT 34.6 % (34.0-46.0); HGB 11.2 gm/dL (11.4-16.0); Hypochromasia Slight; Lymphocytes % (A) 38 %; MCH 28.6 pg (25.0-35.0); MCHC 32.4 g/dL (31.0-37.0); MCV 88.3 fL (80.0-100.0); Monocytes # (A) 0.1 k/uL (0-1.0); Monocytes % (A) 5 %; Neutrophils # (A) 1.4 k/uL (1.3-7.7); Neutrophils % (A) 50 %; Platelet Count 111 k/uL (150-450); RBC 3.91 m/uL (3.80-5.40); RDW 13.1 % (11.5-15.5); WBC 2.7 k/uL (3.8-10.6)
[2020-10-15 09:53] LABS: ALT 162 U/L (4-34); AST 191 U/L (14-36); African American GFR (CKD) >90 (>60 ml/min/1.73 sqM); Alkaline Phosphatase 55 U/L (38-126); Anion Gap 7 mmol/L; Blood Urea Nitrogen 14 mg/dL (7-17); Calcium 8.9 mg/dL (8.4-10.2); Carbon Dioxide 25 mmol/L (22-30); Chloride 109 mmol/L (98-107); Glucose 91 mg/dL (74-99); Non-African American GFR(CKD) >90 (>60 ml/min/1.73 sqM); Potassium 3.9 mmol/L (3.5-5.1); Sodium 141 mmol/L (137-145); Total Bilirubin 0.9 mg/dL (0.2-1.3)
--- NOTE | 2020-10-15 11:23 | P.PN ---
Progress Note - Text Progress Note Date: 10/15/20 Clinical Problems: Alcohol use disorder severe, opiate use disorder on agonist therapy, borderline personality disorder Interim history: Reviewed the medical record and interviewed the patient. She signed AMA yesterday. She stated that she wished to be discharged as soon as possible to schedule her next injection of Sublocade. She now alleges that she did not present hospital because she was having suicidal thoughts. She talked vaguely about the need to have the support offered by this unit for her "stress". She denied feeling depressed or having thoughts of or suicide. She feels that she is beginning to have opiate withdrawal symptoms. Mental status exam: She was casually groomed, pleasant and cooperative. Her affect was bright. Her speech was expressive, coherent and goal directed. She denies suicidal ideation, wishes or homicidal ideation. She denied feelin g hopeless, helpless or worthless. She denied hallucinations did not appear to be responding to internal stimuli. Assessment: She is having mild opiate withdrawal symptoms. Plan: Plan for discharge 10/17/2020 after we schedule clinic appointment with her primary for her next injection of Sublocade. Continue current medications. Encourage participation in therapeutic groups and activities. Evaluate clinical status response to treatment daily basis.
[2020-10-15 13:50] LABS: Hemoglobin A1C 5.3 % (4.0-6.0)
--- NOTE | 2020-10-15 19:54 | P.CONS ---
History of Present Illness - Reason for Consult Consult date: 10/14/20 Medical management - Chief Complaint Mental health issues - History of Present Illness Patient presents the ED complaining of having suicidal ideations. Patient states that her mother a few months ago, and she states that her mother was her best friend. Patient states that she has felt very depressed recently, and she states that she has developed thoughts of suicide. Patient states that she has had a plan to overdose on heroin, but she denies doing so. Patient states that she has not used heroin in the past 7 months. Patient admits to drinking a little bit of whiskey earlier today. Patient denies any other illicit drug use, and she denies medication abuse or overdose. Patient denies suicidal attempt, homicidal ideations, hallucinations, any pain, trauma or injury, fever or chills, cough or cold symptoms, dyspnea, dizziness, nausea/vomiting/diarrhea, or any other symptoms or complaints. Review of Systems REVIEW OF SYSTEMS: CONSTITUTIONAL: No fever, no malaise, no fatigue. HEENT: No recent visual problems or hearing problems. Denied any sore throat. CARDIOVASCULAR: No chest pain, orthopnea, PND, no palpitations, no syncope. PULMONARY: No shortness of breath, no cough, no hemoptysis. GASTROINTESTINAL: No diarrhea, no nausea, no vomiting, no abdominal pain. NEUROLOGICAL: No headaches, no weakness, no numbness. HEMATOLOGICAL: Denies any bleeding or petechiae. GENITOURINARY: Denies any burning micturition, frequency, or urgency. MUSCULOSKELETAL/RHEUMATOLOGICAL: Denies any joint pain, swelling, or any muscle pain. ENDOCRINE: Denies any polyuria or polydipsia. The rest of the 14-point review of systems is negative. Past Medical History Past Medical History: Seizure Disorder, Supraventricular Tachycardia (SVT) Additional Past Medical History / Comment(s): SVT with cardiac ablation, lumbar DDD, bulging lumbar disc, seizure per family today 08/01/17 and 07/11/17, ETOH abuse, past hx documented cocaine/opiate/benzodiazepine disorder, migraines, sinus problems, past bilateral arm fractures/casted. History of Any Multi-Drug Resistant Organisms: ESBL Year Discovered:: 06/09/18 MDRO Source:: ESBL URINE Past Surgical History: Bariatric Surgery, Cardiac Ablation, Orthopedic Surgery Additional Past Surgical History / Comment(s): gastric sleeve, EP studies, cardiac ablation for SVT, 03/2017 I &D L wrist. Past Anesthesia/Blood Transfusion Reactions: No Reported Reaction Past Psychological History: Anxiety, Bipolar, Depression, Panic Disorder Smoking Status: Current every day smoker Past Alcohol Use History: Occasional Past Drug Use History: Marijuana, Prescription Drug Abuse - Past Family History Father History Unknown: Yes Mother History Unknown: Yes Sister(s) Additional Family Medical History / Comment(s): Sister had SVT Medications and Allergies Home Medications Medication Instructions Recorded Confirmed Type Ibuprofen [Motrin Ib] 800 mg PO TID PRN 06/17/19 06/17/19 History Allergies Allergy/AdvReac Type Severity Reaction Status Date / Time trazodone Allergy dizziness Verified 10/13/20 16:45 Physical Exam Vitals: Vital Signs Temp Pulse Pulse Resp BP BP Pulse Ox 10/14/20 06:19 98.3 F 69 133/80 10/13/20 21:21 97.4 F L 105 H 16 138/73 10/13/20 18:15 18 10/13/20 17:44 18 10/13/20 16:40 98.3 F 111 H 20 150/95 99 Intake and Output 10/13/20 10/14/20 10/14/20 22:59 06:59 14:59 Other: Weight 87.543 kg Limitations: no limitations General appearance: alert, in no apparent distress Head exam: Present: atraumatic, normocephalic Eye exam: Present: normal appearance, PERRL, EOMI ENT exam: Present: mucous membranes moist Neck exam: Present: other (Trachea is in midline) Respiratory exam: Present: normal lung sounds bilaterally. Absent: respiratory distress, wheezes, rales, rhonchi Cardiovascular Exam: Present: regular rate, normal rhythm, normal heart sounds, other (Normal radial pulses bilaterally) GI/Abdominal exam: Present: soft. Absent: distended, tenderness, guarding Extremities exam: Present: normal inspection. Absent: pedal edema Neurological exam: Present: alert, oriented X3. Absent: motor sensory deficit Psychiatric exam: Present: anxious, other (Tearful) Skin exam: Present: warm, dry, intact, normal color Results CBC & Chem 7: 10/15/20 09:07 10/15/20 09:07 Assessment and Plan Assessment: 1. Uncontrolled hypertension; patient denies any history of hypertension; claims secondary to anxiety and stress; once blood pressure monitored 2. Suicidal ideation; your management 3. Tachycardia/ history of SVT; patient has history of cardiac ablation; stable at this time 4. Seizure disorder not on any seizure medication; Questionably secondary to EtOH abuse; Patient gives a vague history DVT prophylaxis; early ambulation
[2020-10-16] MEDS: hydrOXYzine pamoate 25 MG CAP PO PRN ×3 (05:27→19:05)
[2020-10-16 05:31] VITALS: RESP 18
[2020-10-16] MEDS: MULTIVITAMINS, THERA 1 EACH TAB PO SCH (07:52)
[2020-10-16] MEDS: clonazePAM 1 MG TAB PO SCH ×3 (07:52→20:53)
[2020-10-16] MEDS: PREGABALIN 100 MG CAP PO SCH ×3 (07:52→20:53)
[2020-10-16] MEDS: NICOTINE 14MG/24HR PATCH TRANSDERM SCH (07:52)
[2020-10-16] MEDS: ACETAMINOPHEN TAB 325 MG TAB PO PRN ×2 (12:05→23:15)
--- NOTE | 2020-10-16 12:27 | P.PN ---
Progress Note - Text Progress Note Date: 10/16/20 Clinical Problems: Alcohol use disorder severe, opiate use disorder on agonist therapy, borderline personality disorder Interim history: I reviewed the medical record and interviewed the patient. She complained of increasing pain and requested an increase of Lyrica to 300 mg 3 times a day; the dose she was prescribed by her primary care provider. She denied feeling depressed or having thoughts of or suicide. She feels that she is beginning to have opiate withdrawal symptoms. I reviewed [facility] and confirmed that her primary was prescribing that high of a dose of Lyrica. Mental status exam: She was casually groomed, pleasant and cooperative. Her affect was bright. Her speech was expressive, coherent and goal directed. She denies suicidal ideation, wishes or homicidal ideation. She denied feeling hopeless, helpless or worthless. She denied hallucinations did not a ppear to be responding to internal stimuli. Assessment: She is having mild opiate withdrawal symptoms. Plan: Plan for discharge 10/17/2020 after we schedule clinic appointment with her primary for her next injection of Sublocade. Increase Lyrica to 300mg TID. Cont. other medications. Encourage participation in therapeutic groups and activities. Evaluate clinical status response to treatment daily basis.
[2020-10-16] MEDS ORDERED: LOPERAMIDE 2 MG CAP PO PRN (17:59)
[2020-10-17] MEDS: hydrOXYzine pamoate 25 MG CAP PO PRN (06:05)
[2020-10-17 06:26] VITALS: BP 128/65; PULSE 78; TEMP 98.6
[2020-10-17] MEDS: clonazePAM 1 MG TAB PO SCH (08:00)
[2020-10-17] MEDS: MULTIVITAMINS, THERA 1 EACH TAB PO SCH (08:00)
[2020-10-17] MEDS: NICOTINE 14MG/24HR PATCH TRANSDERM SCH (08:00)
[2020-10-17] MEDS: PREGABALIN 100 MG CAP PO SCH (08:00)
--- NOTE | 2020-10-17 11:21 | P.DS ---
Providers Date of admission: 10/13/20 19:58 Attending physician: Davis Rebolledo MD Consults: 10/13/20 20:01 Consult Physician Routine Consulting Provider: Tony Connolly Consult Reason/Comments: medical management Do you want consulting provider notified?: Yes Primary care physician: Tony Connolly - Discharge Diagnosis(es) (1) Suicidal ideation Current Visit: Yes Status: Acute Priority: Low (2) Opioid use disorder, severe, on maintenance therapy Current Visit: Yes Status: Chronic Priority: High (3) Alcohol intoxication Current Visit: No Status: Acute Priority: Low (4) Alcohol use disorder Current Visit: No Status: Chronic Priority: High (5) Borderline personality disorder Current Visit: No Status: Chronic Priority: High Hospital Course: HISTORY: Adelita is a 30-year-old single female who presented to emergency room with complaints of suicidal ideation and depression and grief over the of her mother. She is known to this unit from her prior admissions (This is her seventh admission to our psychiatric unit.) She was last discharged from the unit with the diagnoses of borderline personality disorder, adjustment disorder with mixed disturbance of mood and conduct, alcohol intoxication and alcohol use disorder. Although we referred [facility] she did not follow through with the referral. Unlike prior admissions she admitted to history of substance use problems. She talked about her history of opiate use and problems as a result of her opiate use. She complained of increasing depression and anxiety over the holiday. Her mother of an opiate overdose and March 2020 and this is her first Thanksgiving since her mother's ; "I always spend Thanksgiving with her mother". She has thoughts of and suicide but denied intent or plan. She believes that if she were to suicide then she would "never see her mother again." She revealed that her mother would use drugs together and suggested that her mother introduced her to opiates She is been abstinence from opiates since she was incarcerated since April 2020. She talked about difficulty with withdrawing from opiates while she was in [facility]. She served 100 days for violation of probation regarding a prior possession charge. She was released from [facility] in July and she is on 12 months of probation. Since her release from [facility] her primary, Dr. Connolly, prescribed Suboxone up to 24 mg. He switched her over to Sublocade 300 mg IM on 09/27/2020. Her next injection is due on 10/15/2020. We confirmed by [facility] that Dr. Connolly has prescribed her clonazepam 1 mg 3 times a day and Lyrica 300 mg 3 times a day. He has been prescribing her 10 day supplies of both medications. She last abstained a prescription for both on 10/11/2020 and alleges that she has not entirely used up this prescription. She also described other psychotropic medications for complaints of anxiety and depression including prazosin, sertraline, gabapentin, duloxetine and most recently Vraylar. During interview she was most concerned about obtaining prescriptions of Klonopin, Lyrica and Suboxone. She became distressed when I explained that we do not have Suboxone, Subutex or Soblocade. She was quite dramatic in her presentation and described an overwhelming s ubjective symptoms of depression and anxiety. She became depressed and tearful as she talked about her mother and her mother's . She feels guilty that she may have contributed to her mother's drug use and overdose and feels that she is a disappointment because benefit her to "get clean." [facility] and [facility] related to drug overdoses, alcohol intoxication, substance withdrawal and seizures. HOSPITAL COURSE: We admitted her to the psychiatric unit under the care of this hand sign writer. Provided a comprehensive biopsychosocial assessment. The regional sales consultant aged or disabled care worker completed initial physical exam and medical history. The regional sales consultant diagnose uncontrolled hypertension, tachycardia and a history of seizure disorder. The regional sales consultant recommended to monitor her blood pressure and if her blood pressure does not decline with psychiatric treatment start an antihypertensive. After she was admitted to unit her blood pressure declined within the normal range. She was most concerned about obtaining prescriptions for controlled substances-Lyrica, Klonopin and Suboxone. Apparently this admission was in part prompted by her missing her most recent appointment with her primary care provider for the Sublocade injection. We verified the dose of her controlled substances and continued medications as prescribed by her outpatient physician (with the exception of Suboxone which is not on formulary). Her distress rapidly abated when she arrived on the unit. She had no overt opiate withdrawal symptoms during this hospitalization. She was pleasant and cooperative and posed no management problem. She had no episodes of behavioral dyscontrol. She participated actively in therapeutic groups and activities. Because her history of multiple drug use problems we recommended that she obtain her prescriptions for controlled substances, Klonopin and Lyrica, from her primary care provider. MENTAL STATUS ON DISCHARGE: At the time of discharge she presented as a casually groomed 30-year-old female who was pleasant on approach. She had a dramatic presentation. She made eye contact and attended the interview. She is distressed that I would not prescribe her Lyrica but stated she has "enough" Klonopin. She had no abnormality of psychomotor activity. Her affect was anxious but stable and appropriate. She denied suicidal or homicidal ideation. She denied feeling hopeless, helpless or worthless. She ruminated about her history of drug use, family history of drug use problems and the overdose of her mother. She did not express ideas reference, paranoid ideation or delusional beliefs. Her thinking was abstract and associations were coherent, logical and goal directed. She denied hallucinations did not appear to be responding to internal stimuli. DISPOSITION: Discharge her prior address. She has a follow-up appointment with her primary care provider for the Sublocade injection as well as for prescriptions of Klonopin Lyrica. We again referred her to to mental health for outpatient mental health services. Patient Condition at Discharge: Stable Plan - Discharge Summary New Discharge Prescriptions: New Nicotine 14Mg/24Hr Patch [Habitrol] 1 patch TRANSDERM DAILY patch clonazePAM [KlonoPIN] 1 mg PO TID tab Pregabalin [Lyrica] 300 mg PO TID cap Multivitamins, Thera [Multivitamin (formulary)] 1 each PO DAILY tab hydrOXYzine pamoate [Vistaril] 50 mg PO Q6HR PRN cap PRN Reason: Anxiety Continue Ibuprofen [Motrin Ib] 800 mg PO TID PRN PRN Reason: Pain Discharge Medication List Ibuprofen [Motrin Ib] 800 mg PO TID PRN 06/17/19 [History] Multivitamins, Thera [Multivitamin (formulary)] 1 each PO DAILY tab 10/17/20 [Rx] Nicotine 14Mg/24Hr Patch [Habitrol] 1 patch TRANSDERM DAILY patch 10/17/20 [Rx] Pregabalin [Lyrica] 300 mg PO TID cap 10/17/20 [Rx] clonazePAM [KlonoPIN] 1 mg PO TID tab 10/17/20 [Rx] hydrOXYzine pamoate [Vistaril] 50 mg PO Q6HR PRN cap 10/17/20 [Rx] Follow up Appointment(s)/Referral(s): [facility] [Outside] - 10/18/20 2:00 pm (10-18-20 @ 2:00 with Sandy Lewis and guardian at [facility] 10-24-20 @ 11:00 with [employer] CL[employer] Mercedes Silva for psych eval at [facility]) Tony Connolly MD [Primary Care Provider] - 1-2 days Activity/Diet/Wound Care/Special Instructions: Activity and diet as tolerated. Avoid the use of street drugs and alcohol. Take all medications as prescribed. When you are in need of refills on your medications please contact your medical provider and/or outpatient psychiatrist to have this done. Please go to scheduled outpatient appointment for aftercare treatment. If symptoms return or become worse, call the crisis line at and/or go to the nearest emergency room for evaluation. Discharge Disposition: HOME SELF-CARE
== END 2020-10-17 12:11 | disposition home or self-care (01) | DRG 885 ==
LOC: EC 16:39 → 3MHU 19:58
PROVIDERS: ADMIT Psychiatry & Neurology Psychiatry; ATTEND Psychiatry & Neurology Psychiatry
DX: F31.9 Bipolar disorder, unspecified (principal); R45.851 Suicidal ideations; F11.13 Opioid abuse with withdrawal; G40.909 Epilepsy, unspecified, not intractable, without status epilepticus; F43.21 Adjustment disorder with depressed mood; B18.2 Chronic viral hepatitis C; F10.129 Alcohol abuse with intoxication, unspecified; F60.3 Borderline personality disorder; Z20.828 Contact with and (suspected) exposure to other viral communicable diseases; F17.200 Nicotine dependence, unspecified, uncomplicated; F41.0 Panic disorder [episodic paroxysmal anxiety]; I10 Essential (primary) hypertension; G43.909 Migraine, unspecified, not intractable, without status migrainosus; M51.26 Other intervertebral disc displacement, lumbar region; M51.36 Other intervertebral disc degeneration, lumbar region; Z65.3 Problems related to other legal circumstances; Z98.84 Bariatric surgery status; Z88.8 Allergy status to other drugs, medicaments and biological substances; Z86.79 Personal history of other diseases of the circulatory system; Z87.81 Personal history of (healed) traumatic fracture; Z86.19 Personal history of other infectious and parasitic diseases; Z98.890 Other specified postprocedural states; Z82.49 Family history of ischemic heart disease and other diseases of the circulatory system
CPT/HCPCS: 80053; 80306; 81025; 82075; 83036; 84443; 85025; 87635; 99285

== ENCOUNTER 2021-03-22 12:22 | Inpatient (IN) | payer OTHER ==
--- NOTE | 2021-03-22 13:22 | ED ---
Psych HPI - General Chief Complaint: Psychiatric Symptoms Stated Complaint: EPS eval Time Seen by Provider: 03/22/21 12:37 Source: patient, family, RN notes reviewed Mode of arrival: ambulatory - History of Present Illness Initial Comments: This is a 30-year-old female was brought in by her sister today because of depression and suicidal thoughts is close to the 1 year anniversary of her mother dying and she is very depressed about it and suicidal he has also been drinking a lot of alcohol. No reports of any drug abuse. No specific plans are as suicidal. No other current complaints modifying factors patient is tearful during the evaluation MD Complaint: suicidal ideation, feels depressed, other - Related Data Home Medications Medication Instructions Recorded Confirmed ALPRAZolam [Xanax] 1 mg PO TID PRN 03/22/21 03/22/21 Ascorbic Acid [Vitamin C] 500 mg PO DAILY 03/22/21 03/22/21 Cholecalciferol [Vitamin D3 (25 50 mcg PO DAILY 03/22/21 03/22/21 Mcg = 1000 Iu)] Cyanocobalamin [Vitamin B-12] 500 mcg PO DAILY 03/22/21 03/22/21 Diphenoxylate HCl/Atropine 1 tab PO QID PRN 03/22/21 03/22/21 [Lomotil 2.5-0.025 mg Tablet] Lurasidone [Latuda] 40 mg PO DAILY 03/22/21 03/22/21 Methadone HCl [Methadone Intensol] 1 dose PO DAILY 03/22/21 03/22/21 Multivitamins, Thera [Multivitamin 1 tab PO DAILY 03/22/21 03/22/21 (formulary)] Naloxone HCl [Narcan] 4 mg NASAL ONCE PRN 03/22/21 03/22/21 Ondansetron HCl [Zofran] 4 mg PO Q8H PRN 03/22/21 03/22/21 Pregabalin [Lyrica] 300 mg PO BID PRN 03/22/21 03/22/21 rOPINIRole HCL [Requip] 0.5 mg PO HS 03/22/21 03/22/21 Allergies Allergy/AdvReac Type Severity Reaction Status Date / Time trazodone AdvReac dizziness Verified 03/22/21 13:13 Review of Systems ROS Statement: Those systems with pertinent positive or pertinent negative responses have been documented in the HPI. ROS Other: All systems not noted in ROS Statement are negative. Past Medical History Past Medical History: Seizure Disorder, Supraventricular Tachycardia (SVT) Additional Past Medical History / Comment(s): SVT with cardiac ablation, lumbar DDD, bulging lumbar disc, seizure per family today 08/01/17 and 07/11/17, ETOH abuse, past hx documented cocaine/opiate/benzodiazepine disorder, migraines, sinus problems, past bilateral arm fractures/casted. History of Any Multi-Drug Resistant Organisms: ESBL Date of last positivie culture/infection: 06/09/18 MDRO Source:: ESBL URINE Past Surgical History: Bariatric Surgery, Cardiac Ablation, Orthopedic Surgery Additional Past Surgical History / Comment(s): gastric sleeve, EP studies, cardiac ablation for SVT, 03/2017 I &D L wrist. Past Anesthesia/Blood Transfusion Reactions: No Reported Reaction Past Psychological History: Anxiety, Bipolar, Depression, Panic Disorder Smoking Status: Current every day smoker Past Alcohol Use History: Occasional Past Drug Use History: Marijuana, Prescription Drug Abuse - Past Family History Father History Unknown: Yes Mother History Unknown: Yes Sister(s) Additional Family Medical History / Comment(s): Sister had SVT General Exam - General Exam Comments Initial Comments: This is a well-developed well-nourished awake alert oriented 3 with the smell of alcohol conjoiners on her breath Limitations: no limitations General appearance: alert, anxious Head exam: Present: atraumatic, normocephalic, normal inspection Eye exam: Present: normal appearance, PERRL, EOMI. Absent: scleral icterus, conjunctival injection, periorbital swelling ENT exam: Present: normal exam, mucous membranes moist Neck exam: Present: normal inspection. Absent: tenderness, meningismus, lymphadenopathy Respiratory exam: Present: normal lung sounds bilaterally. Absent: respiratory distress, wheezes, rales, rhonchi, stridor Cardiovascular Exam: Present: regular rate, normal rhythm, normal heart sounds. Absent: systolic murmur, diastolic murmur, rubs, gallop, clicks GI/Abdominal exam: Present: soft, normal bowel sounds. Absent: distended, tenderness, guarding, rebound, rigid Extremities exam: Present: normal inspection, full ROM, normal capillary refill. Absent: tenderness, pedal edema, joint swelling, calf tenderness Back exam: Present: normal inspection Neurological exam: Present: alert, oriented X3, CN II-XII intact Psychiatric exam: Present: depressed, suicidal ideation Skin exam: Present: warm, dry, intact, normal color. Absent: rash Course Vital Signs 03/22/21 12:30 Temperature 97.9 F Pulse Rate 99 Respiratory 22 Rate Blood Pressure 118/77 O2 Sat by Pulse 97 Oximetry Medical Decision Making - Medical Decision Making Patient does demonstrate severe alcohol intoxication she'll be admitted for inpatient evaluation and treatment case is discussed with Dr. Kirkland - Lab Data Result diagrams: 03/22/21 13:13 03/22/21 13:13 Lab Results 03/22/21 03/22/21 03/22/21 Range/Units 12:51 12:51 13:13 WBC (3.8-10.6) k/uL RBC (3.80-5.40) m/uL Hgb (11.4-16.0) gm/dL Hct (34.0-46.0) % MCV (80.0-100.0) fL MCH (25.0-35.0) pg MCHC (31.0-37.0) g/dL RDW (11.5-15.5) % Plt Count (150-450) k/uL MPV Neutrophils % % Lymphocytes % % Monocytes % % Eosinophils % % Basophils % % Neutrophils # (1.3-7.7) k/uL Lymphocytes # (1.0-4.8) k/uL Monocytes # (0-1.0) k/uL Eosinophils # (0-0.7) k/uL Basophils # (0-0.2) k/uL Sodium 144 (137-145) mmol/L Potassium 4.3 (3.5-5.1) mmol/L Chloride 110 H (98-107) mmol/L Carbon Dioxide 22 (22-30) mmol/L Anion Gap 12 mmol/L BUN 14 (7-17) mg/dL Creatinine 0.92 (0.52-1.04) mg/dL Est GFR (CKD-EPI)AfAm >90 (>60 ml/min/1.73 sqM) Est GFR (CKD-EPI)NonAf 84 (>60 ml/min/1.73 sqM) Glucose 112 H (74-99) mg/dL Calcium 8.7 (8.4-10.2) mg/dL Magnesium 1.5 L (1.6-2.3) mg/dL Total Bilirubin 0.4 (0.2-1.3) mg/dL AST 114 H (14-36) U/L ALT 118 H (4-34) U/L Alkaline Phosphatase 66 (38-126) U/L Ammonia (<30) umol/L Total Protein 7.4 (6.3-8.2) g/dL Albumin 4.3 (3.5-5.0) g/dL Urine HCG, Qual Not Detected (Not Detectd) Urine Opiates Screen Not Detected (NotDetected) Ur Oxycodone Screen Not Detected (NotDetected) Urine Methadone Screen Detected H (NotDetected) Ur Propoxyphene Screen Not Detected (NotDetected) Ur Barbiturates Screen Not Detected (NotDetected) U Tricyclic Antidepress Not Detected (NotDetected) Ur Phencyclidine Scrn Not Detected (NotDetected) Ur Amphetamines Screen Not Detected (NotDetected) U Methamphetamines Scrn Not Detected (NotDetected) U Benzodiazepines Scrn Not Detected (NotDetected) Urine Cocaine Screen Not Detected (NotDetected) U Marijuana (THC) Screen Not Detected (NotDetected) Serum Alcohol 267 H* mg/dL 03/22/21 03/22/21 Range/Units 13:13 13:13 WBC 6.5 (3.8-10.6) k/uL RBC 4.38 (3.80-5.40) m/uL Hgb 13.0 (11.4-16.0) gm/dL Hct 38.2 (34.0-46.0) % MCV 87.2 (80.0-100.0) fL MCH 29.6 (25.0-35.0) pg MCHC 33.9 (31.0-37.0) g/dL RDW 14.0 (11.5-15.5) % Plt Count 201 (150-450) k/uL MPV 8.6 Neutrophils % 66 % Lymphocytes % 28 % Monocytes % 3 % Eosinophils % 1 % Basophils % 1 % Neutrophils # 4.3 (1.3-7.7) k/uL Lymphocytes # 1.8 (1.0-4.8) k/uL Monocytes # 0.2 (0-1.0) k/uL Eosinophils # 0.1 (0-0.7) k/uL Basophils # 0.1 (0-0.2) k/uL Sodium (137-145) mmol/L Potassium (3.5-5.1) mmol/L Chloride (98-107) mmol/L Carbon Dioxide (22-30) mmol/L Anion Gap mmol/L BUN (7-17) mg/dL Creatinine (0.52-1.04) mg/dL Est GFR (CKD-EPI)AfAm (>60 ml/min/1.73 sqM) Est GFR (CKD-EPI)NonAf (>60 ml/min/1.73 sqM) Glucose (74-99) mg/dL Calcium (8.4-10.2) mg/dL Magnesium (1.6-2.3) mg/dL Total Bilirubin (0.2-1.3) mg/dL AST (14-36) U/L ALT (4-34) U/L Alkaline Phosphatase (38-126) U/L Ammonia <9 (<30) umol/L Total Protein (6.3-8.2) g/dL Albumin (3.5-5.0) g/dL Urine HCG, Qual (Not Detectd) Urine Opiates Screen (NotDetected) Ur Oxycodone Screen (NotDetected) Urine Methadone Screen (NotDetected) Ur Propoxyphene Screen (NotDetected) Ur Barbiturates Screen (NotDetected) U Tricyclic Antidepress (NotDetected) Ur Phencyclidine Scrn (NotDetected) Ur Amphetamines Screen (NotDetected) U Methamphetamines Scrn (NotDetected) U Benzodiazepines Scrn (NotDetected) Urine Cocaine Screen (NotDetected) U Marijuana (THC) Screen (NotDetected) Serum Alcohol mg/dL Disposition Clinical Impression: Alcohol intoxication, Suicidal ideation, Depression Disposition: ADMITTED IP TO THIS HOSP Condition: Fair Referrals: Tony Connolly MD [Primary Care Provider] - 1-2 days
[2021-03-22 13:50] LABS: Basophils # (A) 0.1 k/uL (0-0.2); Basophils % (A) 1 %; Eosinophils # (A) 0.1 k/uL (0-0.7); Eosinophils % (A) 1 %; HCT 38.2 % (34.0-46.0); Lymphocytes # (A) 1.8 k/uL (1.0-4.8); Lymphocytes % (A) 28 %; MCH 29.6 pg (25.0-35.0); MCHC 33.9 g/dL (31.0-37.0); MCV 87.2 fL (80.0-100.0); Mean Platelet Volume 8.6; Monocytes # (A) 0.2 k/uL (0-1.0); Monocytes % (A) 3 %; Neutrophils # (A) 4.3 k/uL (1.3-7.7); Neutrophils % (A) 66 %; Platelet Count 201 k/uL (150-450); RBC 4.38 m/uL (3.80-5.40); WBC 6.5 k/uL (3.8-10.6)
[2021-03-22 13:54] LABS: Amphetamine Screen,Urine Not Detected (NotDetected); Barbiturate Screen,Urine Not Detected (NotDetected); Benzodiazepines Screen,Urine Not Detected (NotDetected); Cocaine Screen,Urine Not Detected (NotDetected); Methadone Screen, Urine Detected (NotDetected); Opiate Screen,Urine Not Detected (NotDetected); Oxycodone Screen, Urine Not Detected (NotDetected); Phencyclidine Screen,Urine Not Detected (NotDetected); Tricyclic Antidepressant,Urine Not Detected (NotDetected); Urn Cannabinoid Scrn Not Detected (NotDetected)
[2021-03-22 14:04] LABS: ALT 118 U/L (4-34); AST 114 U/L (14-36); African American GFR (CKD) >90 (>60 ml/min/1.73 sqM); Albumin 4.3 g/dL (3.5-5.0); Alkaline Phosphatase 66 U/L (38-126); Anion Gap 12 mmol/L; Blood Urea Nitrogen 14 mg/dL (7-17); Calcium 8.7 mg/dL (8.4-10.2); Carbon Dioxide 22 mmol/L (22-30); Chloride 110 mmol/L (98-107); Glucose 112 mg/dL (74-99); Magnesium 1.5 mg/dL (1.6-2.3); Non-African American GFR(CKD) 84 (>60 ml/min/1.73 sqM); Potassium 4.3 mmol/L (3.5-5.1); Sodium 144 mmol/L (137-145); Total Bilirubin 0.4 mg/dL (0.2-1.3); Total Protein 7.4 g/dL (6.3-8.2)
[2021-03-22 14:12] LABS: Alcohol 267 mg/dL
[2021-03-22] MEDS ORDERED: NALOXONE 0.4 MG/ML 1 ML VIAL IV PRN (15:04)
[2021-03-22] MEDS ORDERED: NON FORMULARY DRUG (Naloxone Hcl [Narcan] 4 MG Spray) NASAL PRN (15:07)
[2021-03-22] MEDS ORDERED: DIPHENOX-ATROP 2.5-0.025 MG 1 EACH TAB PO PRN (15:07)
[2021-03-22] MEDS ORDERED: ONDANSETRON 4 MG TAB PO PRN (15:07)
[2021-03-22] MEDS: ALPRAZolam 1 MG TAB PO PRN ×2 (16:24→23:59)
[2021-03-22] MEDS: PREGABALIN 100 MG CAP PO PRN (16:33)
[2021-03-22] MEDS: SODIUM CHLORIDE 0.9% 1,000 ML IV SCH (21:36)
[2021-03-23] MEDS: SODIUM CHLORIDE 0.9% 1,000 ML IV SCH ×3 (04:10→16:33)
[2021-03-23] MEDS: CYANOCOBALAMIN 500 MCG TAB PO SCH (07:37)
[2021-03-23] MEDS: ALPRAZolam 1 MG TAB PO PRN ×3 (07:37→22:09)
[2021-03-23] MEDS: CHOLECALCIFEROL 25 MCG (1000 IU) TABLET PO SCH (07:37)
[2021-03-23] MEDS: ASCORBIC ACID 500 MG TAB PO SCH (07:37)
[2021-03-23] MEDS: LURASIDONE 40 MG TAB PO SCH (07:37)
[2021-03-23] MEDS: MULTIVITAMINS, THERA 1 EACH TAB PO SCH (07:37)
[2021-03-23] MEDS: METHADONE 10 MG TAB PO SCH (08:42)
[2021-03-23] MEDS ORDERED: NON FORMULARY DRUG (Methadone Hcl [Methadone Intensol] 10 MG/ML Oral.Conc) PO SCH (09:00)
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
[2021-03-23] MEDS: PREGABALIN 100 MG CAP PO PRN (20:59)
--- NOTE | 2021-03-23 22:58 | DS ---
DISCHARGE SUMMARY CHIEF COMPLAINT: Acute alcohol intoxication, depression and suicidal personality. HISTORY OF PRESENT ILLNESS AND PHYSICAL EXAMINATION: Details of this lady's history and physical can be found in the initial workup. LABORATORY STUDIES: While she was in the hospital she had laboratory studies, details of which can be found in the laboratory section of her chart. COURSE IN THE HOSPITAL: After admission she was placed on bedrest, started on intravenous fluids and CIWA protocol. She was placed on suicide precautions. She was seen by Psychiatry, and they felt that she should be moved to the inpatient side. FINAL DIAGNOSES: 1. Acute alcohol intoxication. 2. History of multiple substance abuse and addiction. 3. Depression. OPERATIONS: None. CONSULTATION: Psychiatry. She is improved. MMODL / IJN: [id number] /
[2021-03-24] MEDS: SODIUM CHLORIDE 0.9% 1,000 ML IV SCH ×4 (04:25→19:33)
[2021-03-24] MEDS: METHADONE 10 MG TAB PO SCH (07:53)
[2021-03-24] MEDS: MULTIVITAMINS, THERA 1 EACH TAB PO SCH (07:54)
[2021-03-24] MEDS: LURASIDONE 40 MG TAB PO SCH (07:54)
[2021-03-24] MEDS: CYANOCOBALAMIN 500 MCG TAB PO SCH (07:54)
[2021-03-24] MEDS: CHOLECALCIFEROL 25 MCG (1000 IU) TABLET PO SCH (07:54)
[2021-03-24] MEDS: ASCORBIC ACID 500 MG TAB PO SCH (07:54)
[2021-03-24] MEDS: ALPRAZolam 1 MG TAB PO PRN ×3 (08:03→19:26)
[2021-03-24] MEDS: PREGABALIN 100 MG CAP PO PRN ×2 (08:11→18:03)
[2021-03-24 14:56] VITALS: BP 107/68; PULSE 60; RESP 17; TEMP 99.2
== END 2021-03-24 19:36 | DRG 897 ==
LOC: EC 12:22 → EEVIPCON 12:22 → 4SSUR 15:04 → OBSVTOIN 03-23 22:34
PROVIDERS: ADMIT Family Medicine; ATTEND Family Medicine
DX: F10.129 Alcohol abuse with intoxication, unspecified (principal); R45.851 Suicidal ideations; F31.30 Bipolar disorder, current episode depressed, mild or moderate severity, unspecified; F11.20 Opioid dependence, uncomplicated; Z20.822 Contact with and (suspected) exposure to COVID-19; F41.0 Panic disorder [episodic paroxysmal anxiety]; M51.26 Other intervertebral disc displacement, lumbar region; M51.36 Other intervertebral disc degeneration, lumbar region; F41.9 Anxiety disorder, unspecified; Y90.8 Blood alcohol level of 240 mg/100 ml or more; Z79.899 Other long term (current) drug therapy; Z87.81 Personal history of (healed) traumatic fracture; Z86.19 Personal history of other infectious and parasitic diseases; Z86.79 Personal history of other diseases of the circulatory system; Z86.69 Personal history of other diseases of the nervous system and sense organs; Z98.890 Other specified postprocedural states; Z98.84 Bariatric surgery status; Z88.8 Allergy status to other drugs, medicaments and biological substances; Z81.8 Family history of other mental and behavioral disorders
CPT/HCPCS: 36415; 80053; 80306; 80320; 81025; 82075; 82140; 83735; 85025; 87636; 99285

== ENCOUNTER 2021-03-24 19:39 | Inpatient (IN) | payer MEDICAID ==
[2021-03-24] MEDS ORDERED: ACETAMINOPHEN TAB 325 MG TAB PO PRN (19:43)
[2021-03-24] MEDS ORDERED: MAG HYDROX/AL HYDROX/SIMETH 30 ML CUP PO PRN (19:43)
[2021-03-24] MEDS ORDERED: MAGNESIUM HYDROXIDE 2,400 MG/10 ML CUP PO PRN (19:43)
[2021-03-24] MEDS ORDERED: HALOPERIDOL LACTATE 5 MG/ML 1 ML VIAL IM PRN (19:52)
[2021-03-24] MEDS ORDERED: LORazepam 2 MG/ML INJ IM PRN (19:52)
[2021-03-25 08:01] LABS: Cholesterol 124 mg/dL (<200); HDL Cholesterol 68 mg/dL (40-60); LDL Cholesterol,Calculated 43 mg/dL (0-99); Triglycerides 63 mg/dL (<150)
[2021-03-25] MEDS: LURASIDONE 40 MG TAB PO SCH (08:03)
[2021-03-25] MEDS: METHADONE 10 MG TAB PO SCH (08:03)
[2021-03-25] MEDS: CYANOCOBALAMIN 500 MCG TAB PO SCH (08:03)
[2021-03-25] MEDS: LORazepam 1 MG TAB PO PRN ×2 (09:21→17:20)
[2021-03-25] MEDS: PREGABALIN 100 MG CAP PO PRN ×2 (09:21→20:46)
[2021-03-25] MEDS: NICOTINE 14MG/24HR PATCH TRANSDERM SCH (09:24)
--- NOTE | 2021-03-25 10:08 | P.HP ---
Psychiatric H&P - . H&P Date: 03/25/21 History & Physical: IDENTIFYING DATA: Adelita is a 30-year-old single female transfer to the psychiatric unit from medicine where she had been admitted for acute alcohol intoxication and suicidal ideation. HISTORY OF PRESENT ILLNESS: Her father and sister brought her to the emergency department acutely intoxicated with a blood alcohol level of 267. She reported that they became concerned about her because she was texting to them that she wa nted to "be with my mother." She described becoming increasingly depressed, distressed and preoccupied with suicide with the anniversary of her mother's (she denied of an opiate overdose in March 2020). Apparently Adelita became distressed after she visited her mother's grave after placement of her recent headstone. She is well known to the psychiatric unit from prior admissions. She was last discharged from our unit in September 2020 with the diagnoses of suicidal ideation, opiate use disorder on maintenance therapy, alcohol intoxication, alcohol use disorder and a borderline personality disorder. She alleged that she has been abstinent from heroin since his discharge. She transitioned off of Suboxone and entered a methadone maintenance program in December or January of this year. She is currently receiving 140 mg of methadone daily. She denied use of other drugs with the exception of alcohol. She alleged that she relapsed to alcohol the week prior to this admission. She described continued feelings depression that have improved since admission to the unit. She denies that she is currently experiencing alcohol withdrawal symptoms. She denied current thoughts of or suicide. She described continued unresolved grief and guilt over her mother's . She denied chronic or persistent anxiety that interferes with her ability to function. She denied experiencing panic attacks. She denied such psychotic symptoms as hallucinations, paranoia or confusion. Her UDS on presentation to the ED was positive only for methadone. PAST PSYCHIATRIC HISTORY: This is at least her eighth admission to the psychiatric unit. [facility] and presentation [facility] related to drug overdoses, alcohol intoxication, substance withdrawal and seizures. She has been diagnosed with various disorders including bipolar disorder, major depressive disorder, generalized anxiety disorder but the one consistent diagnosis has been alcohol and opiate use disorder. Her primary care provider prescribes her psychotropic medications Latuda 40mg daily. PAST MEDICAL HISTORY: She reportedly has a history of seizure disorder and supraventricular tachycardia. She is not currently prescribed antiseizure medications. ALLERGIES: Trazodone SUBSTANCE USE HISTORY: She was drinking alcohol prior to this admission and has used opiates for much of her adult life. She has been treated with Suboxone (both oral and long-term injectable) for the opiate use disorder and she had one admission to [facility] for treatment of alcohol and opiate use disorder. She is currently enrolled in [facility] for methadone maintenance. FAMILY PSYCHIATRIC/SUBSTANCE USE HISTORY: Her mother and sister and a history of opiate use disorder. Her father has a history of cocaine use disorder and a mental illness. Her maternal grandmother and one of her uncles by suicide. LEGAL HISTORY: She is sure currently on probation for possession of controlled substances. Her sister has guardianship and conservatorship. SOCIAL HISTORY: Her parents are . She is single and has no children. She is a strong family history of substance use and substance use problems. Her mother by overdose in March 2020. She graduated from high school. She has never been employed. She has no stable income. Her and her sister were beneficiaries of her mother's life insurance policy. Her sister obtained guardianship and conservatorship because she was concerned that the patient would spend this money on drugs. She has no stable housing and lives between friends and family. MENTAL STATUS EXAM: She presented as a casually groomed stocky 30-year-old female who was pleasant on approach. She made eye contact and attended to the interview. She has nose rings but no prominent physical abnormalities. She had a sad facial expression. She is alert and oriented to person, place and time. She had slight psychomotor retardation but no abnormal involuntary movements. She had a steady gait. Her speech was spontaneous with normal rate, rhythm and volume. She had no articulation difficulties. Her affect was depressed and dramatic. She expressed suicidal ideation but denied wishes and homicidal ideation. She expressed feelings of hopelessness and helplessness particularly when talking about the of her mother. She ruminated over the of her mother. She is not express ideas reference, paranoid ideation or delusions. Her thinking was abstract and associations were coherent, logical and goal directed. She denied hallucinations did not appear to be responding to internal stimuli. Global impression of intellect is average. She is aware of illness and need for treatment. STRENGTHS: Relatively good health, access to housing options, engagement with outpatient medical care, involvement in substance abuse treatment services WEAKNESSES: Substance use disorders, strong family history of substance use problems IMPRESSION: She is a 30-year-old single female admitted to psychiatric unit voluntarily with complaints of depression and suicidal ideation. She complained that this her mood is worse and she had thoughts of suicide because related to the anniversary of the her mother. Her mother of a opiate overdose in March 2020. She described increased drinking and thoughts of suicide without intent or plan. She has long history of opiate use and alcohol use problems as well as dramatic subjective complaints of anxiety and depression. She alleges abstinence from opiates since she was incarcerated and is receiving opiate substitution by her outpatient physician. She benefit from a brief episodes of inpatient treatment and multimodal therapy. PRINCIPLE DIAGNOSIS: Suicidal ideation, unspecified mood disorder, alcohol use disorder severe, opiate use disorder on agonist therapy, borderline personality disorder RECOMMENDATION: The mental psychiatric unit. Safety precautions. Medical consult appreciated. spring salvage worker to complete initial psychosocial assessment coordinate discharge and aftercare. Continue methadone 140 mg daily, Latuda 40 mg daily, Lyrica 300 mg twice a day when necessary for pain and Requip 0.5 mg at bedtime. Seroquel 25 mg at bedtime when necessary for sleep. Encourage participation in therapeutic groups and activities. Evaluate clinical status response to treatment on a daily basis. Allergies Allergy/AdvReac Type Severity Reaction Status Date / Time trazodone AdvReac dizziness Verified 03/22/21 13:13 Vital Signs Temp 98.4 F 03/25/21 08:01 Pulse 71 03/25/21 08:33 Resp 15 03/25/21 08:01 BP 116/69 03/25/21 08:33 Pulse Ox 98 03/25/21 08:01 Intake & Output 03/24/21 03/25/21 03/25/21 18:59 06:59 18:59 Weight 90.71 kg Laboratory Last Values Triglycerides 63 mg/dL (<150) 03/25/21 06:19 Cholesterol 124 mg/dL (<200) 03/25/21 06:19 LDL Cholesterol, Calc 43 mg/dL (0-99) 03/25/21 06:19 HDL Cholesterol 68 mg/dL (40-60) H 03/25/21 06:19 03/25/21 09:49
--- NOTE | 2021-03-25 17:42 | CONS ---
CONSULTATION CHIEF COMPLAINT: Major depression, acute alcohol intoxication and history of substance abuse. HISTORY OF PRESENT ILLNESS: This lady's history can be found in documents accompanying her from the floor as well as from Psychiatry. She has a long-standing history of major depression and substance use and abuse. She used to use drugs with her mother. Her mother from a drug overdose in the recent past which has created a great deal of anxiety, guilt and depression. We have been working with her to try to get her off narcotics. She recently did an inpatient stint and came out on methadone. She is being followed at [facility]. She apparently became depressed, drank a large quantity of alcohol and came to emergency room. She was admitted for detox and then moved to this unit. REVIEW OF SYSTEMS: Review of systems is otherwise unremarkable. She feels fine with no headaches, tremors, chest pain, shortness of breath, abdominal pain, nausea, vomiting, diarrhea, and incontinence, etc. Past medical history, family history and personal and social histories are all otherwise unremarkable and unchanged. PHYSICAL EXAM: Reveals her to be awake and alert and calm and appropriate. Head, ears, eyes, nose, mouth and throat are normal. Chest is clear. Cardiac exam is normal. Abdomen is soft, nontender. Extremities: Normal. Neurologically: She is intact. IMPRESSION: She is admitted to the unit with a diagnoses: 1. Major depression. 2. Status post acute alcohol intoxication and overdose. 3. History of narcotic abuse. RECOMMENDATIONS: None. MMODL / IJN: [id number] /
[2021-03-25] MEDS: QUEtiapine 25 MG TAB PO PRN (20:47)
[2021-03-26] MEDS: NICOTINE 14MG/24HR PATCH TRANSDERM SCH (08:26)
[2021-03-26] MEDS: LURASIDONE 40 MG TAB PO SCH (08:26)
[2021-03-26] MEDS: CYANOCOBALAMIN 500 MCG TAB PO SCH (08:26)
[2021-03-26] MEDS: METHADONE 10 MG TAB PO SCH (08:26)
[2021-03-26] MEDS: PREGABALIN 100 MG CAP PO PRN ×2 (08:28→21:12)
[2021-03-26] MEDS: LORazepam 1 MG TAB PO PRN ×2 (12:05→18:51)
--- NOTE | 2021-03-26 14:42 | P.PN ---
Progress Note - Text Progress Note Date: 03/26/21 Clinical Problems: Bereavement, suicidal ideation (resolved), Alcohol intoxication (resolved), alcohol use disorder severe, opiate use disorder on agonist therapy, borderline personality disorder Interim history: I reviewed the medical record and interviewed the patient. She reported her mood as much improved and she is no longer thinking about or suicide. She is less distressed over the of her mother and did not perseverate about missing her mother on Mother's Day. She is anticipating discharge and spoke to her grandmother about pursuing additional mental health services. She denied alcohol withdrawal symptoms. She is requesting when necessary Ativan for complaints of somatic anxiety. She is attending therapeutic groups and activities. She slept 7 hours last night. Mental status exam: She presented as a casually groomed 3-year-old female who was pleasant on approach. She made eye contact and attended the interview. She had a right facial expression. She showed no abnormality of psychomotor activity. Her speech was spontaneous with normal rate, volume and rhythm. Affect was blunted but stable and appropriate. She denied suicidal ideation and wishes. She denied feeling hopeless, helpless or worthless. Her thinking was abstract and associations were coherent and logical. She denied experiencing hallucinations and did not appear to be responding to internal stimuli. Assessment: She is minimally to moderately mentally ill and much improved from admission. Plan: Continue inpatient treatment. She could be discharge as early as 03/27/2021. Continue current medications. Encouraged continued participation in therapeutic groups and activities. Evaluate clinical status response to treatment daily basis.
[2021-03-26] MEDS: QUEtiapine 25 MG TAB PO PRN (21:12)
[2021-03-27 07:11] VITALS: RESP 16; TEMP 97.6
[2021-03-27] MEDS: CYANOCOBALAMIN 500 MCG TAB PO SCH (08:29)
[2021-03-27] MEDS: METHADONE 10 MG TAB PO SCH (08:29)
[2021-03-27] MEDS: NICOTINE 14MG/24HR PATCH TRANSDERM SCH (08:29)
[2021-03-27] MEDS: LURASIDONE 40 MG TAB PO SCH (08:29)
[2021-03-27] MEDS: PREGABALIN 100 MG CAP PO PRN ×2 (09:31→20:54)
--- NOTE | 2021-03-27 10:26 | P.PN ---
Progress Note - Text Progress Note Date: 03/27/21 Interval History: Patient was seen sitting in a group this morning and was directable and agreea ble to speak with staff writer in the office. Patient described the reason for her hospitalization. She states that she was saying "concerning things to my family" prior to her coming in to the hospital and states that her family "tricked me" to coming in. She states that she was feeling depressed and was drinking heavily prior to coming into the hospital. Her blood alcohol level was over 200. She states that "I usually don't drink". She denies having any other issues with alcohol however states that she used other drugs in the past. She claims that she has been feeling "sad and depressed" and spoke about her mother passing away 1 year ago and states that her mother was her best friend. She states that today her mood has been getting better with the increase in the latuda and was able to sleep better at night on the Seroquel. She was agreeable to try Remeron instead of Seroquel for tonight. She claims that she has been going to groups and trying to participate as best she can. At this time patient denies any current suicidal or homical ideations, intent or plan. Patient denies any auditory, visual hallucinations and denies any paranoia or delusions. Patient denies any side effects from the medications and has been compliant with meds. Mental Status Exam: General Appearance: Patient appears to have improving hygiene, be stated age is alert, directable, and cooperative. Behavior: Patient is calmly seated without any agitated behavior. Speech: Patient's speech is fluent and nonpressured. Soft tone. Mood/Affect: Mood is improving mildly, affect is congruent and constricted. Suicidality/Homicidality: Patient denies having any suicidal or homicidal ideation intent or plan. Perceptions: Patient denies any visual hallucinations and denies any auditory hallucinations Though content/process: There is no evidence of any delusional thought content and thought process is linear and goal-directed. Focuses on her stressors. Memory and concentration: AOX3, grossly intact for the purposes of this session Judgment and insight: Improving mildly Assessment Unspecified mood disorder r/o bipolar depression, alcohol use disorder severe, opiate use disorder on agonist therapy, borderline personality disorder, nicotine dependence Plan: -Patient continues to meet criteria for inpatient psychiatric admission for symptom stabilization and safety. Patient has signed adult voluntary form and medication consent and was placed in patient's chart. -Medications: Can continue with Latuda 40mg daily for mood stabilization/depression. Discontinued Seroquel and replaced with Remeron 15 mg daily at bedtime for mood/appetite/insomnia. 10 continue with methadone 140 mg for opiate use disorder, Requip 0.25 mg daily at bedtime for restless leg symptoms. -When necessary Ativan and Haldol for agitation/aggression. -NRT - nicotine patch -SW on board for discharge planning. Encouraged the patient to participate in milieu. liner worker to gather further collateral information from family and prepare for discharge tomorrow. At this time patient is refusing rehab.
[2021-03-27] MEDS: LORazepam 1 MG TAB PO PRN ×2 (10:46→19:56)
[2021-03-27] MEDS ORDERED: MIRTAZAPINE 15 MG TAB PO SCH (21:00)
[2021-03-28] MEDS: METHADONE 10 MG TAB PO SCH (08:56)
[2021-03-28] MEDS: NICOTINE 14MG/24HR PATCH TRANSDERM SCH (08:57)
[2021-03-28] MEDS: LURASIDONE 40 MG TAB PO SCH (08:57)
[2021-03-28] MEDS: CYANOCOBALAMIN 500 MCG TAB PO SCH (08:57)
[2021-03-28] MEDS: PREGABALIN 100 MG CAP PO PRN (08:58)
--- NOTE | 2021-03-28 09:17 | P.DS ---
Providers Date of admission: 03/24/21 19:39 Expected date of discharge: 03/28/21 Attending physician: Casper Hernandez MD Consults: 03/24/21 19:43 Consult Physician Routine Consulting Provider: Tony Connolly Consult Reason/Comments: medical management Do you want consulting provider notified?: Already Contacted Primary care physician: Tony Connolly - Discharge Diagnosis(es) (1) Unspecified mood [affective] disorder Current Visit: Yes Status: Acute Priority: High (2) Alcohol use disorder Current Visit: Yes Status: Acute Priority: Medium (3) Opioid use disorder, mild, in early remission, on maintenance therapy Current Visit: Yes Status: Acute Priority: Low (4) Borderline personality disorder Current Visit: Yes Status: Acute Priority: Medium (5) Nicotine dependence Current Visit: Yes Status: Acute Priority: Low Hospital Course: Admission HPI: Admission note was completed by lyric writer "Adelita is a 30-year-old single female transfer to the psychiatric unit from medicine where she had been admitted for acute alcohol intoxication and suicidal ideation. Her father and sister brought her to the emergency department acutely intoxicated with a blood alcohol level of 267. She reported that they became concerned about her because she was texting to them that she wanted to "be with my mother." She described becoming increasingly depressed, distressed and preoccupied with suicide with the anniversary of her mother's (she denied of an opiate overdose in March 2020). Apparently Adelita became distressed after she visited her mother's grave after placement of her recent headstone. She is well known to the psychiatric unit from prior admissions. She was last discharged from our unit in September 2020 with the diagnoses of suicidal ideation, opiate use disorder on maintenance therapy, alcohol intoxication, alcohol use disorder and a borderline personality disorder. She alleged that she has been abstinent from heroin since his discharge. She transitioned off of Suboxone and entered a methadone maintenance program in December or January of this year. She is currently receiving 140 mg of methadone daily. She denied use of other drugs with the exception of alcohol. She alleged that she relapsed to alcohol the week prior to this admission. She described continued feelings depression that have improved since admission to the unit. She denies that she is currently experiencing alcohol withdrawal symptoms. She denied current thoughts of or suicide. She described continued unresolved grief and guilt over her mother's . She denied chronic or persistent anxiety that interferes with her ability to function. She denied experiencing panic attacks. She denied such psychotic symptoms as hallucinations, paranoia or confusion. Her UDS on presentation to the ED was positive only for methadone." Hospital course: Upon admission to the unit patient was initially depressed. Patient was however directable and agreeable to commence treatment and signed adult voluntary form. Patient got along well with other patients on the unit and followed unit protocol. Patient was compliant with the medications and denied any side effects throughout hospital course. Patient was started on her home dose of Latuda and increased to 40mg daily for mood stabilization/depression. Patient was also started on Seroquel initially for sleep however was replaced by Remeron to limit the antipsychotic medications. Patient was also restarted on her home dose of methadone under 40 mg daily for opiate use disorder and also Requip 0.25 mg daily at bedtime for restless leg symptoms. Patient spoke of her stressors and engaged in therapy both group and individual. Patient was also seen by medical team for history and physical exam. Throughout the course of the hospitalization patient gradually improved with regards to mood, anxiety, sleep and became more future oriented with improved insight and judgment. On the day of discharge patient denied any suicidal or homicidal ideations intent or plan denied any auditory or visual hallucinations. Patient endorsed wanting to live for her future and her family. The patient denied any access to guns or weapons. Patient denied any paranoia and did not endorse any delusions. Patient does have a significant history of substance abuse and was counseled on abstaining from all substances including alcohol and marijuana. Patient was offered however declined inpatient substance-abuse rehab. Patient was also counseled on the medications and need for regular compliance and was encouraged to follow-up with their outpatient appointment for mental health and also for primary care. Prior to discharge a family meeting will be arranged by social worker clinical to answer any questions and ensure safety upon discharge. Mental status exam: General Appearance: Patient appears to be stated age is alert, pleasant, and attempts to be cooperative. Patient is in no acute distress and has improved hygiene and grooming Behavior: Patient is calmly seated without any agitated behavior. Speech: Patient's speech is fluent and nonpressured. Mood/Affect: Patient reports their mood is "good", affect is congruent and euthymic. Suicidality/Homicidality: Patient denies having any suicidal or homicidal ideation intent or plan. Perceptions: Patient denies any auditory or visual hallucinations. Though content/process: There is no evidence of any delusional thought content and thought process is linear and goal-directed. Memory and concentration: AOX3, grossly intact for the purposes of this session. Can spell "WORLD" backwards correctly. Judgment and insight: improved with guarded prognosis Impression: Unspecified mood disorder rule out bipolar depression Alcohol use disorder severe Opiate use disorder on agonist therapy Borderline personality disorder Nicotine dependence Plan: -Continue with discharge today as patient has improved and stabilized psychiatrically and is not currently an imminent threat to himself and/or others. Patient will remain at chronically elevated risk for harm to self and/or others due to her impulsivity and polysubstance abuse. -Continue medications: latuda 40mg daily for mood stabilization/depression, Remeron 15 mg daily at bedtime for mood/appetite/insomnia, Requip 0.25 mg daily at bedtime for restless leg symptoms. Patient will also be going to [facility] once again for her methadone 140 mg daily for opiate use disorder. -Patient was counseled on the need for medication compliance and appropriate follow-up at mental health and also primary care for medical issues. Patient verbalized understanding and agreed. -Social work to arrange for and conduct family meeting to ensure safety upon discharge and answer any questions/concerns. Social work also to arrange for patients follow up appointments for psychiatric care along with follow up with primary care provider. -Patient counseled on abstaining from recreational drugs and marijuana and alcohol. Was informed/educated on the adverse effects on their physical and mental health. Patient verbally agreed and understood. Patient was offered substance abuse treatment however declined at this time. -Patient was instructed to return to the hospital or seek immediate medical care if their psychiatric or medical symptoms do worsen or reoccur. Allergies Allergy/AdvReac Type Severity Reaction Status Date / Time trazodone AdvReac dizziness Verified 03/22/21 13:[address] Glu mg/dL 100 03/25/21 06:19 Hemoglobin A1c 5.0 % (4.0-6.0) 03/25/21 06:19 Triglycerides 63 mg/dL (<150) 03/25/21 06:19 Cholesterol 124 mg/dL (<200) 03/25/21 06:19 LDL Cholesterol, Calc 43 mg/dL (0-99) 03/25/21 06:19 HDL Cholesterol 68 mg/dL (40-60) H 03/25/21 06:19 Vital Signs Temp 97.6 F 03/27/21 06:10 Pulse 109 H 03/27/21 08:34 Resp 16 03/27/21 06:10 BP 126/76 03/27/21 08:34 Pulse Ox 98 03/25/21 08:01 Intake & Output 03/27/21 03/28/21 03/28/21 18:59 06:59 18:59 Weight 90.71 kg Patient Condition at Discharge: Stable Plan - Discharge Summary Discharge Rx Participant: No New Discharge Prescriptions: New Pregabalin [Lyrica] 300 mg PO BID PRN 3 Days cap PRN Reason: Pain Control Mirtazapine [Remeron] 15 mg PO HS 30 Days tab Nicotine 14Mg/24Hr Patch [Habitrol] 1 patch TRANSDERM DAILY 14 Days patch Lurasidone [Latuda] 40 mg PO DAILY 30 Days tab rOPINIRole HCL [Requip] 0.5 mg PO HS 30 Days tab Cyanocobalamin [Vitamin B-12] 500 mcg PO DAILY 30 Days tab Continue Methadone HCl [Methadone Intensol] 140 mg PO DAILY Discharge Medication List Methadone HCl [Methadone Intensol] 140 mg PO DAILY 03/22/21 [History] Cyanocobalamin [Vitamin B-12] 500 mcg PO DAILY 30 Days tab 03/28/21 [Rx] Lurasidone [Latuda] 40 mg PO DAILY 30 Days tab 03/28/21 [Rx] Mirtazapine [Remeron] 15 mg PO HS 30 Days tab 03/28/21 [Rx] Nicotine 14Mg/24Hr Patch [Habitrol] 1 patch TRANSDERM DAILY 14 Days patch 03/28/21 [Rx] Pregabalin [Lyrica] 300 mg PO BID PRN 3 Days cap 03/28/21 [Rx] rOPINIRole HCL [Requip] 0.5 mg PO HS 30 Days tab 03/28/21 [Rx] Activity/Diet/Wound Care/Special Instructions: Activity and diet as tolerated. Avoid the use of street drugs and alcohol. Take all medications as prescribed. When you are in need of refills on your medications please contact your medical provider and/or outpatient psychiatrist to have this done. Please go to scheduled outpatient appointment for aftercare treatment. If symptoms return or become worse, call the crisis line at and/or go to the nearest emergency room for evaluation. Discharge Disposition: HOME SELF-CARE
[2021-03-28] MEDS: LORazepam 1 MG TAB PO PRN (09:21)
[2021-03-28 11:50] VITALS: BP 130/77; PULSE 120
== END 2021-03-28 11:35 | disposition home or self-care (01) | DRG 885 ==
LOC: 3MHU 19:39
PROVIDERS: ADMIT Psychiatry & Neurology Psychiatry; ATTEND Psychiatry & Neurology Psychiatry
DX: F31.9 Bipolar disorder, unspecified (principal); R45.851 Suicidal ideations; F11.11 Opioid abuse, in remission; F17.200 Nicotine dependence, unspecified, uncomplicated; F41.1 Generalized anxiety disorder; F60.3 Borderline personality disorder; G25.81 Restless legs syndrome; G40.909 Epilepsy, unspecified, not intractable, without status epilepticus; G47.00 Insomnia, unspecified; Z65.3 Problems related to other legal circumstances; Z79.899 Other long term (current) drug therapy; Z81.8 Family history of other mental and behavioral disorders
CPT/HCPCS: 80061; 83036

== ENCOUNTER 2021-04-23 18:39 | Observation (INO) | payer OTHER ==
[2021-04-23] MEDS ORDERED: NALOXONE 0.4 MG/ML 1 ML VIAL IV PRN (19:20)
[2021-04-23] MEDS ORDERED: LORazepam 2 MG/ML INJ IV PRN ×2 (19:20)
--- NOTE | 2021-04-23 19:25 | ED ---
General Adult HPI - General Chief complaint: Psychiatric Symptoms Stated complaint: EPS eval Time Seen by Provider: 04/23/21 18:43 Source: patient, EMS, RN notes reviewed, old records reviewed Mode of arrival: EMS Limitations: altered mental status - History of Present Illness Initial comments: 30-year-old female with been transferred from outside hospital for polysubstance abuse, seizure, and mental health evaluation. She had been transferred after a reported 2 day history of methamphetamine and heroin abuse. She was brought in for altered mental status. She is able to answer some simple questions but is not able to complete a detailed history. Apparently the patient had a seizure while in the outside emergency department and was transferred for monitoring awaiting sobriety and mental health evaluation. - Related Data Home Medications Medication Instructions Recorded Confirmed Methadone HCl [Methadone Intensol] 140 mg PO DAILY 03/22/21 03/24/21 Previous Rx's Medication Instructions Recorded Cyanocobalamin [Vitamin B-12] 500 mcg PO DAILY 30 Days tab 03/28/21 Lurasidone [Latuda] 40 mg PO DAILY 30 Days tab 03/28/21 Mirtazapine [Remeron] 15 mg PO HS 30 Days tab 03/28/21 Nicotine 14Mg/24Hr Patch [Habitrol] 1 patch TRANSDERM DAILY 14 Days 03/28/21 patch Pregabalin [Lyrica] 300 mg PO BID PRN 3 Days cap 03/28/21 rOPINIRole HCL [Requip] 0.5 mg PO HS 30 Days tab 03/28/21 Allergies Allergy/AdvReac Type Severity Reaction Status Date / Time trazodone AdvReac dizziness Verified 03/22/21 13:13 Review of Systems ROS Statement: Those systems with pertinent positive or pertinent negative responses have been documented in the HPI. ROS Other: All systems not noted in ROS Statement are negative. Past Medical History Past Medical History: Seizure Disorder, Supraventricular Tachycardia (SVT) Additional Past Medical History / Comment(s): SVT with cardiac ablation, lumbar DDD, bulging lumbar disc, seizure per family today 08/01/17 and 07/11/17, ETOH abuse, past hx documented cocaine/opiate/benzodiazepine disorder, migraines, sinus problems, past bilateral arm fractures/casted. History of Any Multi-Drug Resistant Organisms: ESBL Date of last positivie culture/infection: 06/09/18 MDRO Source:: ESBL URINE Past Surgical History: Bariatric Surgery, Cardiac Ablation, Orthopedic Surgery Additional Past Surgical History / Comment(s): gastric sleeve, EP studies, cardiac ablation for SVT, 03/2017 I &D L wrist. Past Anesthesia/Blood Transfusion Reactions: No Reported Reaction Past Psychological History: Anxiety, Bipolar, Depression, Panic Disorder Smoking Status: Current every day smoker Past Alcohol Use History: Occasional Past Drug Use History: Marijuana, Methamphetamine, Opiates, Prescription Drug Abuse - Past Family History Father History Unknown: Yes Mother History Unknown: Yes Sister(s) Additional Family Medical History / Comment(s): Sister had SVT General Exam Limitations: altered mental status General appearance: anxious, lethargic Head exam: Present: atraumatic, normocephalic Eye exam: Present: normal appearance, PERRL ENT exam: Present: normal exam Neck exam: Present: normal inspection. Absent: tenderness, meningismus Respiratory exam: Present: normal lung sounds bilaterally. Absent: respiratory distress, wheezes Cardiovascular Exam: Present: regular rate, normal rhythm GI/Abdominal exam: Present: soft. Absent: distended, tenderness Extremities exam: Present: normal inspection, normal capillary refill. Absent: pedal edema Neurological exam: Present: alert. Absent: oriented X3 Psychiatric exam: Present: agitated, anxious Skin exam: Present: warm, dry, intact. Absent: cyanosis, diaphoretic Course Vital Signs 04/23/21 18:49 Temperature 99.8 F H Pulse Rate 81 Respiratory 18 Rate Blood Pressure 160/67 O2 Sat by Pulse 98 Oximetry Medical Decision Making - Medical Decision Making Patient had received workup including laboratory testing and CT brain. Urinalysis and urine drug screen had not been performed prior to transfer. These tests have been ordered and results are pending. Patient had a CT which was negative for intracranial hemorrhage or mass effect. Lactic acid 1.2, sodium mildly elevated 147, potassium was 3.3, creatinine 1.1. She had normal white blood cell count, hemoglobin was 12.9. She will be on continuous IV hydration, Ativan is ordered for the possibility of recurrent seizure. Seizure precautions are ordered. Psychiatry will be placed on consult after the patient has regained level of consciousness. Disposition Clinical Impression: Generalized seizure, Overdose, Polysubstance abuse Disposition: ADMITTED IP TO THIS HOSP Condition: Stable Instructions (If sedation given, give patient instructions): Seizure/Epilepsy Discharge Instructions & Follow-Up Is patient prescribed a controlled substance at d/c from ED?: No Referrals: Tony Connolly MD [Primary Care Provider] - 1-2 days Decision to Admit Reason: Admit from EC Decision Date: 04/23/21 Decision Time: 19:24
[2021-04-23] MEDS: SODIUM CHLORIDE 0.9% 1,000 ML IV SCH (22:31)
[2021-04-24] MEDS ORDERED: LORazepam 2 MG/ML INJ IV PRN (00:30)
[2021-04-24] MEDS ORDERED: LORazepam 2 MG/ML INJ IV STA (00:32)
[2021-04-24 03:59] LABS: Appearance,Urine Cloudy (Clear); Bacteria,Urine Few /hpf; Bilirubin,Urine Negative (Negative); Blood,Urine Trace (Negative); Color,Urine Yellow; Glucose,Urine (UA) Negative (Negative); Ketones,Urine Negative (Negative); Leukocyte Esterase,Urine Small (Negative); Mucus,Urine Rare /hpf; Nitrite,Urine Negative (Negative); PH, Urine 6.5 (5.0-8.0); Protein,Urine Negative (Negative); RBC,Urine 7 /hpf (0-5); Specific Gravity,Urine 1.014 (1.001-1.035); Squamous Epithelial Cell,Urine <1 /hpf (0-4); WBC,Urine 16 /hpf (0-5)
[2021-04-24] MEDS ORDERED: SODIUM CHLORIDE 0.9% 500 ML 500 ML IV STA (04:01)
[2021-04-24] MEDS ORDERED: MORPHINE SULFATE 4 MG/ML SYRINGE IV STA (04:01)
[2021-04-24] MEDS ORDERED: SODIUM CHLORIDE 0.9% 1,000 ML IV STA (04:01)
[2021-04-24 04:09] LABS: Cocaine Screen,Urine Detected (NotDetected); Opiate Screen,Urine Not Detected (NotDetected); Phencyclidine Screen,Urine Not Detected (NotDetected); Urn Cannabinoid Scrn Not Detected (NotDetected)
[2021-04-24 04:10] LABS: Amphetamine Screen,Urine Detected (NotDetected); Barbiturate Screen,Urine Not Detected (NotDetected); Benzodiazepines Screen,Urine Detected (NotDetected); Methadone Screen, Urine Detected (NotDetected); Oxycodone Screen, Urine Not Detected (NotDetected); Tricyclic Antidepressant,Urine Not Detected (NotDetected)
[2021-04-24 04:59] LABS: ALT 41 U/L (4-34); African American GFR (CKD) >90 (>60 ml/min/1.73 sqM); Albumin 4.4 g/dL (3.5-5.0); Anion Gap 6 mmol/L; Blood Urea Nitrogen 8 mg/dL (7-17); Carbon Dioxide 23 mmol/L (22-30); Chloride 113 mmol/L (98-107); Creatine Kinase 802 U/L (30-135); Glucose 124 mg/dL (74-99); Non-African American GFR(CKD) >90 (>60 ml/min/1.73 sqM); Phosphorus 2.8 mg/dL (2.5-4.5); Sodium 142 mmol/L (137-145); Total Bilirubin 1.2 mg/dL (0.2-1.3); Total Protein 7.3 g/dL (6.3-8.2)
[2021-04-24 05:02] LABS: AST 60 U/L (14-36); Magnesium 1.9 mg/dL (1.6-2.3); Potassium 4.5 mmol/L (3.5-5.1)
[2021-04-24 05:03] LABS: Alkaline Phosphatase 58 U/L (38-126)
[2021-04-24 10:28] LABS: Basophils % (A) 0 %; Eosinophils % (A) 0 %; HCT 36.8 % (34.0-46.0); HGB 12.4 gm/dL (11.4-16.0); Lymphocytes # (A) 0.8 k/uL (1.0-4.8); Lymphocytes % (A) 7 %; MCH 30.1 pg (25.0-35.0); MCHC 33.5 g/dL (31.0-37.0); MCV 89.8 fL (80.0-100.0); Monocytes # (A) 0.6 k/uL (0-1.0); Monocytes % (A) 5 %; Neutrophils # (A) 9.9 k/uL (1.3-7.7); Neutrophils % (A) 87 %; Platelet Count 158 k/uL (150-450); RDW 14.3 % (11.5-15.5); WBC 11.5 k/uL (3.8-10.6)
[2021-04-24] MEDS: SODIUM CHLORIDE 0.9% 1,000 ML IV SCH ×2 (12:20→15:35)
[2021-04-24] MEDS ORDERED: hydrOXYzine pamoate 25 MG CAP PO PRN (15:19)
--- NOTE | 2021-04-24 15:30 | P.CN ---
Psychiatric Consult - . Consult date: 04/24/21 Consult:: 04/24/21 15:19 IDENTIFYING DATA: This patient is a 30-year-old female with a history of polysubstance abuse who currently lives with her grandma is unemployed and has no kids and is single. REASON FOR REFERRAL: Psychiatry was consulted for polysubstance abuse HISTORY OF PRESENT ILLNESS: The patient presented to the hospital as a transfer from an outside hospital. Patient apparently according to ER report has been using methamphetamine and heroin for the past couple of days. Patient presented with altered mental status and a seizure. Computed tomography scan was negative and UDS is positive for methadone, methamphetamine, benzodiazepines and cocaine. Patient was seen at the bedside today and appeared to be disheveled in appearance. She states that she is feeling depressed and very anxious today. She claims that she has been using various different drugs on the street and was fairly preoccupied with benzodiazepines and Xanax. She states that her PCP discontinued her Xanax. She states that she had a seizure recently. She claims that she has been using methamphetamine for approximately 2 days "a lot" and also claims that she took a "couple of Xanax". She states that she also used cocaine 1-2 times. She states that she is doing regular dosing with [facility] in [place] for her methadone. She claims that she is physically unwell and is complaining of severe anxiety. She claims that her sleep is poor. She claims that she has not been taking her medications . At this time patient denies any current suicidal or homical ideations, intent or plan. Patient denies any auditory, visual hallucinations and denies any paranoia or delusions. Patients admits to using recreational drugs as listed above. She also states that she drinks occasionally and smokes cigarettes. She claims that she is having withdrawal symptoms at this time including pain and anxiety, restlessness. PAST PSYCHIATRIC HISTORY: Patient has a a history of polysubstance abuse, bipolar disorder, borderline personality disorder. . She was previously on methadone, Remeron, Requip, latuda. Patient was most recently psychiatrically hospitalized 1 month ago on the mental health unit. She states that she is established with [facility] has not been going to her appointments and claims that she also sees a therapist at [facility]. She claims that she has had 6 suicide attempts in the past. PAST MEDICAL HISTORY: Seizure disorder. ALLERGIES: as per EMR. CHEMICAL DEPENDENCY HISTORY: as per HPI. FAMILY PSYCHIATRIC/SUBSTANCE USE HISTORY: Claims that her father abused cocaine, sister abuses Xanax and mother abused several different substances. SOCIAL HISTORY: Patient was born and raised in [place]. She claims that she completed high school. She claims that she is unemployed and has not worked. She states that she currently lives with her grandmother has no kids and is single. She states that she has been in [facility] in the past however was guarded about the charges. MENTAL STATUS EXAM: General Appearance: Patient appears to be older than stated age is alert, guarded/evasive, disheveled in appearance. Several piercings. Patient appears to have poor hygiene and grooming wearing hospital gown with fair eye contact. Behavior: Patient is calmly lying in bed without any agitated behavior. Guarded/evasive Speech: Patient's speech is fluent and nonpressured. Hesitant Mood/Affect: Patient reports their mood is "depressed and anxious", affect is congruent Suicidality/Homicidality: Patient denies having any suicidal or homicidal ideation intent or plan. Perceptions: Patient denies any visual hallucinations and denies any auditory hallucinations Though content/process: Guarded/evasive. Poverty of content. Memory and concentration: AOX3, grossly intact for the purposes of this session. Can spell "WORLD" backwards Judgment and insight: poor IMPRESSIONS: Mood disorder unspecified Borderline personality disorder Cocaine abuse Benzodiazepine use disorder Opioid dependence, currently on agonist therapy Nicotine dependence Methamphetamine abuse PLAN: -Would recommend the following medication changes/additions: Restart the patient back on Remeron 50 mg daily at bedtime for insomnia/mood, latuda 40mg daily for mood stabilization. Patient has been restarted back on methadone 140 mg daily for opiate dependence. Added Zoloft 50 mg daily for mood/anxiety. vistaril prn for anxiety. Patient should not be placed back on BZD due to her high likely simons of abuse of the medication. -Continue 1:1 sitter for safety -Cannot leave AMA at this time. Patient will need a petition and certification if attempting to leave AMA. -please consult neurology for seizures. -When medically stable and neurology has cleared patient for seizures then patient can be transferred to [facility]. -Communicated plan to patient's nurse -Psychiatry will sign off at this time -Please contact with any questions.
[2021-04-24] MEDS: METHADONE 10 MG TAB PO SCH (15:36)
[2021-04-24] MEDS ORDERED: LURASIDONE 40 MG TAB PO SCH (18:00)
--- NOTE | 2021-04-24 18:24 | HP ---
HISTORY AND PHYSICAL CHIEF COMPLAINT: Multiple drug ingestion and overdose, grand mal seizure disorder, major depression, and mental status changes. HISTORY OF PRESENT ILLNESS: This is another admission for this 30-year-old female who has a longstanding history of serious drug addiction. She and her sister used to take drugs with their mother who a year ago from drug overdose. They have both been struggling. This patient recently got out of a rehab center and was doing well for approximately a month and then she lapsed back into taking drugs and it became acutely severe around the anniversary of her mother's . She came in the office last week extremely depressed and indicated that she was going to kill herself. She has not been able to stay off drugs. While she is in the hospital, the ACT line was contacted and finally the crisis line. It was hoped that we could get her back into a rehab facility, but this cannot be done late in the day. She did not have any transportation and an ambulance was summoned to take her to [facility]. When the ambulance drivers asked her where she wanted to go, she stated that she wanted to be taken to [facility]. She was taken there, seen in the ER and released. Saturday she presented back to the emergency room at [facility] with reports from her flare maker that she has been using large amounts of heroin and multiple other drugs and dropped her off. Then she had a grand mal seizure. She has not had this in the past. It was determined that she was not appropriate candidate for that hospital since they did not have adequate psychiatric facilities and she was transferred to [facility]. REVIEW OF SYSTEMS: Not obtained in that she is quite lethargic. Past medical history, family history and personal and social histories are similarly unremarkable except as already mentioned. PHYSICAL EXAMINATION: Blood pressure is 99/54 with a pulse of 96, respirations of 15 and she is afebrile. In general, she appeared to be disheveled and lethargic. Head, ears, eyes, nose, mouth and throat were normal and gaze was conjugate. Pupils are equal and round. Chest is clear. Cardiac exam is normal. Abdomen is soft and nontender and there are no masses or visceromegaly. Extremities are normal. Neurologically she was very lethargic. IMPRESSION: She is admitted to the hospital with diagnoses: 1. Multiple drug ingestion and overdose. 2. Withdrawal seizures and mental status changes. 3. Major depression. 4. Possible suicidal personality. PLAN: 1. Bedrest. 2. IV fluids. 3. Seizure precautions. 4. Suicide precautions. 5. Psychiatric consult. SISI / ROSANAN: [id number] /
--- NOTE | 2021-04-24 18:24 | PN ---
PROGRESS NOTE DATE OF SERVICE: 04/24/2021 CHIEF COMPLAINT: Multiple drug ingestion overdose with withdrawals and withdrawal grand mal seizure. HISTORY OF PRESENT ILLNESS: This lady has been fairly stable and not had any more seizure activity. She is quite lethargic, still. PHYSICAL EXAMINATION: Chest is clear. Cardiac exam is normal. Abdomen is soft, nontender. Extremities normal. IMPRESSION: 1. Status post multiple drug ingestion overdose. 2. History of multiple substance use and abuse. 3. Major depression. 4. Mental status changes. PLAN: Continue to monitor her, both in terms of seizure activity and depression and await psychiatric evaluation. MMODL / IJN: [id number] /
[2021-04-24] MEDS ORDERED: MIRTAZAPINE 15 MG TAB PO SCH (21:00)
[2021-04-25] MEDS: SODIUM CHLORIDE 0.9% 1,000 ML IV SCH ×2 (07:06→12:25)
[2021-04-25] MEDS: METHADONE 10 MG TAB PO SCH (07:37)
[2021-04-25 08:24] VITALS: RESP 18
[2021-04-25] MEDS ORDERED: SERTRALINE 50 MG TAB PO SCH (09:00)
[2021-04-25] MEDS ORDERED: FOLIC ACID 1 MG TAB PO SCH (10:45)
[2021-04-25] MEDS ORDERED: lamoTRIgine 25 MG TAB PO SCH (10:45)
[2021-04-25] MEDS ORDERED: THIAMINE 100 MG TAB PO SCH (10:45)
--- NOTE | 2021-04-25 10:52 | P.CNNES ---
History of Present Illness Consult date: 04/25/21 Requesting physician: Tony Connolly Reason for Consult: seizure History of Present Illness: This is a 30-year-old woman with medical history of epilepsy, polysubstance use, bipolar disorder who was transferred to [facility] emergency department on 04/23/2021 from outside facility for further evaluation of seizure. She had 2 day history of methamphetamine and heroin abuse. Seem and that the patient had a seizure at that outside emergency department and the was transferred for further evaluation of procedure as well as mental health evaluation. Per the patient nurse she stated that the she was notified that she had a seizure but does not know what was the description of the seizure at outside facility but the patient has not had any seizures since she's been in our facility. Per the patient that she stated that the she had a recent seizure episode but could not describe her seizure she said that she would just feel off then she had a seizure. She stated that she has not been on seizure Medicare for the last 2 years and she does not recall what medication she was on in the past. She stated that to her knowledge she was not on any medication. She believes she follows up with a neurologist as an outpatient the possibly for seizures the but does not recall the name and the last time she seen an neurologist. She did admit that she's been abusing the drugs such as heroin which he uses IV, using cocaine, she drinks half a pint to a pint the what of liquor when she drinks but could not tell me how often she said that she drinks once every so often. Last drink was this past Saturday. She smokes half a pack a day. Patient stated that she did not have seizures as a child and she does not remember what age she had her seizures but that she was told that she has generalized body shaken. Again she stated her last seizure was 2 years ago. I saw in her medical record that possibly the patient has history of breast cancer but patient stated not to her knowledge. She denies any family history of seizures. Regarding her history she said that she is a product of normal vaginal delivery, term without any complication. She denies of any the suicidal homicidal thoughts or plans. Psychiatry at [facility] the patient and they felt the patient has a mood disorder unspecified, borderline personality disorder, Some of the workup in our hospital consisted of: Initial vital signs nor facility is blood pressure 160/67, heart rate of 81, temperature of 99.8 Fahrenheit oral, respiratory of 18 and pulse ox of 98% room air. And repeated temperatures has been normal Initial white blood cell not facilities 11.5 which is slightly elevated. Sodium is 142, creatinine is 0.60, calcium 9.0, glucose is 124 and those are unremarkable. As well as a phosphorus 2.8 and the magnesium is 1.9 which is unremarkable. AST is 60 and ALT is 41 with slightly elevated the CK level is 802 which is also elevated. Urine drug screen was positive for methadone, amphetamine, methamphetamine, ricco oyl, cocaine. Upon reviewing the outside facility workup she had CT of the head and was reported as unremarkable. Upon reviewing medical record is seems that the patient was evaluated by Dr. Tomer Smith in the past for seizures. 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 Patient had an EEG last on 08/03/2017 and it's reported as abnormal due to the frequent discharges of delta activity and sharp wave activity noted throughout the tracing. The findings are suggestive of underlying seizures order. Patient also had an EEG on 07/12/2017 and it's reported as EEG is moderate abnormal in diffuse fashion due to slowing of the EEG background. The EEG felt to reveal any focal, lateralized or epileptiform abnormality. Patient had MRI of the brain in 2017 is reported as no abnormal enhancement or intra-axial vasogenic edema to suggest intracranial metastasis/mass. Abnormal bone marrow signal of the upper cervical spine which is favored the R ar tifactual given the recent MRI cervical spine dated 07/13/2017 demonstrating normal appearing bone marrow signal, although metastasis is possible given the history of breast cancer. Signal nonspecific right frontal focus of white matter change. This focused does not enhance with no surrounding edema and is unlikely to represent metastasis. I reviewed the images with Dr. Villarreal (reading Radiologist) on 04/25/2021 and he felt it was normal. MRI cervical, and lumbar 2017 are reported as mild degenerative disc disease and central disc bulging L5 to S1 but no canal stenosis or foraminal enhancement. Multilevel facet arthropathic the. Numerous gallstones. Review of Systems Review of system: The 12 point system was reviewed and apparent positive and negative per HPI. Past Medical History Past Medical History: Seizure Disorder, Supraventricular Tachycardia (SVT) Additional Past Medical History / Comment(s): SVT with cardiac ablation, lumbar DDD, bulging lumbar disc, seizure per family today 08/01/17 and 07/11/17, ETOH abuse, past hx documented cocaine/opiate/benzodiazepine disorder, migraines, sinus problems, past bilateral arm fractures/casted. History of Any Multi-Drug Resistant Organisms: ESBL Date of last positivie culture/infection: 06/09/18 MDRO Source:: ESBL URINE Past Surgical History: Bariatric Surgery, Cardiac Ablation, Orthopedic Surgery Additional Past Surgical History / Comment(s): gastric sleeve, EP studies, cardiac ablation for SVT, 03/2017 I &D L wrist. Past Anesthesia/Blood Transfusion Reactions: No Reported Reaction Past Psychological History: Anxiety, Bipolar, Depression, Panic Disorder Smoking Status: Current every day smoker Past Alcohol Use History: Occasional Past Drug Use History: Marijuana, Methamphetamine, Opiates, Prescription Drug Abuse - Past Family History Father History Unknown: Yes Mother History Unknown: Yes Sister(s) Additional Family Medical History / Comment(s): Sister had SVT Medications and Allergies Home Medications Medication Instructions Recorded Confirmed Type Methadone HCl [Methadone Intensol] 140 mg PO DAILY 03/22/21 04/23/21 History Cyanocobalamin [Vitamin B-12] 500 mcg PO DAILY 30 Days tab 03/28/21 04/23/21 Rx Lurasidone [Latuda] 40 mg PO DAILY 30 Days tab 03/28/21 04/23/21 Rx Mirtazapine [Remeron] 15 mg PO HS 30 Days tab 03/28/21 04/23/21 Rx rOPINIRole HCL [Requip] 0.5 mg PO HS 30 Days tab 03/28/21 04/23/21 Rx ALPRAZolam [Xanax] 0.5 mg PO BID PRN 04/23/21 04/23/21 History Gabapentin 800 mg PO QID 04/23/21 04/23/21 History Diphenoxylate HCl/Atropine 1 tab PO QID PRN 04/24/21 04/24/21 History [Lomotil 2.5-0.025 mg Tablet] Multivitamins, Thera [Multivitamin 1 tab PO DAILY 04/24/21 04/24/21 History (formulary)] Allergies Allergy/AdvReac Type Severity Reaction Status Date / Time trazodone AdvReac dizziness Verified 04/23/21 19:43 Physical Examination - Vital Signs Vital Signs: Vital Signs Temp Pulse Pulse Resp BP BP Pulse Ox 04/25/21 07:00 98.1 F 71 18 147/79 96 04/24/21 20:13 98.0 F 89 16 153/99 100 04/24/21 18:00 65 16 141/92 98 04/24/21 17:00 72 16 98 04/24/21 16:00 72 16 98 04/24/21 15:00 72 16 98 04/24/21 14:00 72 16 98 04/24/21 13:00 69 16 98 04/24/21 12:00 77 16 140/85 98 04/24/21 10:49 87 16 133/71 98 Intake and Output 04/24/21 04/25/21 04/25/21 22:59 06:59 14:59 Other: # Voids 1 GENERAL: The patient is lying in bed and is not in acute distress. CHEST: The heart rate is regular rate rhythm. No murmurs to auscultation. No carotid bruit bilaterally. LUNG: Clear to auscultation bilaterally no wheezing noted throughout. Not labored breathing. ABDOMEN/GI: Bowel sounds present in all 4 quadrants. No tenderness to palpation throughout. NEUROLOGICAL: Higher mental function: The patient is awake, alert, oriented to self, place and time. Patient is following commands. No aphasia and no neglect. Cranial nerves: The pupils are round, equal and reactive to light and accommodation. Visual gonzalez are full to confrontation throughout. Extraocular movement is intact no nystagmus is noted. Facial sensation is normal to touch throughout. The facial strength is normal throughout. Hearing is normal bilaterally to hand rub. Tongue is midline and moved [id number] without any difficulty. No dysarthria is noted. Shoulder shrug is normal bilaterally. Motor: Gait is deferred. The strength is 5 over 5 throughout. Normal tone and bulk. Cerebellum: Normal finger to nose heel to chin bilaterally. Sensation: Sensation is normal to touch throughout. Reflexes (right/left): 2+ Plantars are downgoing bilaterally. Results Ordaz virus PCR not detected. - Laboratory Findings CBC and BMP: 04/24/21 10:04 04/24/21 04:35 Abnormal Lab Findings: Abnormal Labs 04/24/21 04/24/21 04/24/21 03:30 04:35 10:04 WBC 11.5 H Neutrophils # 9.9 H Lymphocytes # 0.8 L Chloride 113 H Glucose 124 H AST 60 H ALT 41 H Creatine Kinase 802 H Urine Appearance Cloudy H Urine Blood Trace H Ur Leukocyte Esterase Small H Urine RBC 7 H Urine WBC 16 H Urine Bacteria Few H Urine Mucus Rare H Urine Methadone Screen Detected H Ur Amphetamines Screen Detected H U Methamphetamines Scrn Detected H U Benzodiazepines Scrn Detected H Urine Cocaine Screen Detected H Assessment and Plan Assessment: Provoked seizure due to polysubstance use. History of epilepsy. According to patient last seizure was two years ago has GTC prior to this current. Not on any anti-epileptic drug. Polysubstance use (positive for amphetamine, methamphetamine, cocaine, benzo, methadone and stated she uses heroin) Alcohol use. Documented hx of breast cancer (on MRI Lumbar spine, history stated "back pain with history of breast cancer"). Per patient is not aware of history of breast cancer Mood disorder unspecified Borderline personality disorder Nicotine dependence (11/19 PPD) Plan: * She had CT of head at outside facility and reported as unremarkable. * Regarding the patient history of seizure. I started the patient on Lamictal 25 mm daily at bedtime. Patient to go up on 25 mg every 1 week until last 50 mg twice a day. So 25 mA stretches for this week and next week 25 mg twice a day then the following is 25 mg every morning and 50 mg daily at bedtime and then the following after that is 50 mg twice a day. * An EEG is not warranted since the patient is back to baseline. * I started the patient on folic acid 4 mg daily especially she is in the reproductive stage and has history of seizure. Patient was informed the importance of having her seizures controlled as well as medication compliance as well as having dual control protection. * I started the patient on thiamine 100 mg daily. * Psychiatry is on board. * Patient is on seizure precaution. * The patient was counseled on discontinuing the polysubstance use. She was counseled on tobacco and alcohol cessation. * The patient was notified because of her seizure that per the [facility], she cannot drive for 6 month until seizure-free. She is to avoid heights, swimming unassisted and and using heavy machinery. * Recommend the patient to follow-up with a neurologist within 1-2 weeks as an outpatient (especially with hx of seizure). There is no further work-up needed. She is clear from neurological perspective. Thank you for the consultation uRss Deleon MD Neuro-Hospitalist Time with Patient: Greater than 30
[2021-04-25 13:57] VITALS: BP 108/66; PULSE 61; TEMP 98
--- NOTE | 2021-04-25 19:15 | PN ---
PROGRESS NOTE DATE OF SERVICE: 04/25/2021. CHIEF COMPLAINT: Major depression, seizure disorder, and drug overdose with history of substance abuse. HISTORY OF PRESENT ILLNESS: This lady is doing better. She is more awake and alert. She is being evaluated by Neurology after which she will be transferred to the psych unit where she has been accepted. PHYSICAL EXAMINATION: Chest is clear. The cardiac exam is normal. Abdomen is soft, nontender. IMPRESSION: 1. Drug overdose. 2. Grand mal seizure. 3. Major depression. 4. Long history of substance abuse. PLAN: Probably moved to the psych unit today. MMODL / IJN: [id number] /
== END 2021-04-25 15:24 ==
LOC: EEVIPCON 18:39 → EC 18:39 → 1SOBS 19:20 → 6NMEDSUR 04-24 13:25 → 5NMEDONC 04-25 12:38
PROVIDERS: ADMIT Family Medicine; ATTEND Family Medicine
DX: T40.1X1A Poisoning by heroin, accidental (unintentional), initial encounter (principal); G40.409 Other generalized epilepsy and epileptic syndromes, not intractable, without status epilepticus; T40.5X1A Poisoning by cocaine, accidental (unintentional), initial encounter; T42.4X1A Poisoning by benzodiazepines, accidental (unintentional), initial encounter; T40.3X1A Poisoning by methadone, accidental (unintentional), initial encounter; T43.621A Poisoning by amphetamines, accidental (unintentional), initial encounter; F19.139 Other psychoactive substance abuse with withdrawal, unspecified; F14.10 Cocaine abuse, uncomplicated; F11.10 Opioid abuse, uncomplicated; F13.10 Sedative, hypnotic or anxiolytic abuse, uncomplicated; F10.10 Alcohol abuse, uncomplicated; I47.1 Supraventricular tachycardia; F31.9 Bipolar disorder, unspecified; F41.0 Panic disorder [episodic paroxysmal anxiety]; F41.9 Anxiety disorder, unspecified; M51.36 Other intervertebral disc degeneration, lumbar region; G43.909 Migraine, unspecified, not intractable, without status migrainosus; M51.26 Other intervertebral disc displacement, lumbar region; F17.210 Nicotine dependence, cigarettes, uncomplicated; F60.3 Borderline personality disorder; K80.20 Calculus of gallbladder without cholecystitis without obstruction; M47.819 Spondylosis without myelopathy or radiculopathy, site unspecified; Z20.822 Contact with and (suspected) exposure to COVID-19; Z79.899 Other long term (current) drug therapy; Z88.8 Allergy status to other drugs, medicaments and biological substances; Z16.12 Extended spectrum beta lactamase (ESBL) resistance; Z98.84 Bariatric surgery status; Z98.890 Other specified postprocedural states; Z85.3 Personal history of malignant neoplasm of breast; Z81.3 Family history of other psychoactive substance abuse and dependence; Z82.49 Family history of ischemic heart disease and other diseases of the circulatory system
CPT/HCPCS: 96361 ×2; 96376; 96374; 99285; 80053; 82550; 83735; 84100; 85025; 81001; 80306; 87086; 87077; 87186; 87635; G0378 ×5; J2060; S0109 ×2

== ENCOUNTER 2021-04-25 13:32 | Inpatient (IN) | payer MEDICAID ==
[2021-04-25] MEDS ORDERED: DIPHENOX-ATROP 2.5-0.025 MG 1 EACH TAB PO PRN (14:28)
[2021-04-25] MEDS ORDERED: MAGNESIUM HYDROXIDE 2,400 MG/10 ML CUP PO PRN (14:31)
[2021-04-25] MEDS ORDERED: MAG HYDROX/AL HYDROX/SIMETH 30 ML CUP PO PRN (14:31)
[2021-04-25] MEDS ORDERED: ACETAMINOPHEN TAB 325 MG TAB PO PRN (14:31)
[2021-04-25] MEDS ORDERED: HALOPERIDOL LACTATE 5 MG/ML 1 ML VIAL IM PRN (14:34)
[2021-04-25] MEDS ORDERED: hydrOXYzine pamoate 25 MG CAP PO PRN (14:34)
[2021-04-25] MEDS: NICOTINE 14MG/24HR PATCH TRANSDERM SCH (17:58)
[2021-04-25] MEDS: MIRTAZAPINE 15 MG TAB PO SCH (21:44)
[2021-04-25] MEDS: lamoTRIgine 25 MG TAB PO SCH (21:44)
[2021-04-26] MEDS: METHADONE 10 MG TAB PO SCH (08:37)
[2021-04-26] MEDS: CYANOCOBALAMIN 500 MCG TAB PO SCH (08:37)
[2021-04-26] MEDS: FOLIC ACID 1 MG TAB PO SCH (08:37)
[2021-04-26] MEDS: LURASIDONE 40 MG TAB PO SCH (08:37)
[2021-04-26] MEDS: NICOTINE 14MG/24HR PATCH TRANSDERM SCH (08:38)
[2021-04-26] MEDS: MULTIVITAMINS, THERA 1 EACH TAB PO SCH (08:38)
[2021-04-26] MEDS: THIAMINE 100 MG TAB PO SCH (08:39)
[2021-04-26] MEDS ORDERED: SERTRALINE 50 MG TAB PO SCH (09:00)
--- NOTE | 2021-04-26 12:49 | P.HP ---
Psychiatric H&P - . H&P Date: 04/26/21 History & Physical: Allergies Allergy/AdvReac Type Severity Reaction Status Date / Time lactose Allergy Nausea & Verified 04/25/21 16:00 Vomiting & Diarrhea trazodone AdvReac dizziness Verified 04/23/21 19:43 Vital Signs Temp 98.6 F 04/26/21 06:38 Pulse 70 04/26/21 06:38 Resp 16 04/26/21 06:38 BP 141/81 04/26/21 06:38 Pulse Ox 99 04/25/21 16:12 Intake & Output 04/25/21 04/26/21 04/26/21 18:59 06:59 18:59 Weight 87.8 kg 04/26/21 12:27 IDENTIFYING DATA: This patient is a 30-year-old female with a history of polysubstance abuse who currently lives with her grandma is unemployed and has no kids and is single. HISTORY OF PRESENT ILLNESS: HPI was taken from the psychiatric consult note by bond writer "The patient presented to the hospital as a transfer from an outside hospital. Patient apparently according to ER report has been using methamphetamine and heroin for the past couple of days. Patient presented with altered mental status and a seizure. Computed tomography scan was negative and UDS is positive for methadone, methamphetamine, benzodiazepines and cocaine. Patient was seen at the bedside today and appeared to be disheveled in appearance. She states that she is feeling depressed and very anxious today. She claims that she has been using various different drugs on the street and was fairly preoccupied with benzodiazepines and Xanax. She states that her PCP discontinued her Xanax. She states that she had a seizure recently. She claims that she has been using methamphetamine for approximately 2 days "a lot" and also claims that she took a "couple of Xanax". She states that she also used cocaine 1-2 times. She states that she is doing regular dosing with [facility] in [place] for her methadone. She claims that she is physically unwell and is complaining of severe anxiety. She claims that her sleep is poor. She claims that she has not been taking her medications . At this time patient denies any current suicidal or homical ideations, intent or plan. Patient denies any auditory, visual hallucinations and denies any paranoia or delusions. Patients admits to using recreational drugs as listed above. She also states that she drinks occasionally and smokes cigarettes. She claims that she is having withdrawal symptoms at this time including pain and anxiety, restlessness." Patient was seen once again today for admission and evaluation. Patient states that she is still feeling anxious "very high" and claims that Ativan has helped her in the past with this. She continues to speak about benzodiazepines. She claims that she was actually able to sleep fairly well last night. She claims that she believes that she has a rehab intake at [facility] on 05/07. She states that she also believes that her close got lost when she was transferred from the other hospital. She states that her mood is been improving. She is denying any auditory or visual hallucinations at this time and denies any suicidal or homicidal ideations intent or plan. PAST PSYCHIATRIC HISTORY: Patient has a a history of polysubstance abuse, bipolar disorder, borderline personality disorder. She was previously on methadone, Remeron, Requip, latuda. Patient was most recently psychiatrically hospitalized 1 month ago on the mental health unit. She states that she is established with [facility] has not been going to her appointments and claims that she also sees a therapist at [facility]. She claims that she has had 6 suicide attempts in the past. PAST MEDICAL HISTORY: Seizure disorder. ALLERGIES: as per EMR. CHEMICAL DEPENDENCY HISTORY: as per HPI. FAMILY PSYCHIATRIC/SUBSTANCE USE HISTORY: Claims that her father abused cocaine, sister abuses Xanax and mother abused several different substances. SOCIAL HISTORY: Patient was born and raised in [place]. She claims that she completed high school. She claims that she is unemployed and has not worked. She states that she currently lives with her grandmother has no kids and is single. She states that she has been in long term in the past however was guarded about the charges. MENTAL STATUS EXAM: General Appearance: Patient appears to be older than stated age is alert, attempts to cooperate, disheveled in appearance. Several piercings. Patient appears to have poor hygiene and grooming wearing hospital gown with fair eye contact. Behavior: Patient is calmly sitting in the chair without any agitated behavior. Speech: Patient's speech is fluent and nonpressured. Soft tone of voice Mood/Affect: Patient reports their mood is "anxious", affect is congruent Suicidality/Homicidality: Patient denies having any suicidal or homicidal ideation intent or plan. Perceptions: Patient denies any visual hallucinations and denies any auditory hallucinations Though content/process: Guarded/evasive. Poverty of content. Memory and concentration: AOX3, grossly intact for the purposes of this session. Can spell "WORLD" backwards Judgment and insight: poor, improving mildly STRENGTHS/WEAKNESSES: strength is that patient is resilient. Weakness is that patient has poor judgment and is impulsive INTELLECT: average IMPRESSIONS: Depressive disorder unspecified Generalized anxiety disorder Borderline personality disorder Cocaine abuse Benzodiazepine use disorder Opioid dependence, currently on agonist therapy Nicotine dependence Methamphetamine abuse PLAN: -Patient is admitted under voluntary status to MHU for stabilization of psychiatric symptoms and safety. Patient has signed adult voluntary form and medication consent and is placed in patient's chart. -Medications : Will start patient on Zoloft 100 mg daily for mood/anxiety, BuSpar 15 mg twice a day for anxiety, Vistaril when necessary for anxiety. Remeron 15 mg daily at bedtime for insomnia/mood. Methadone for opiate dependence. Lamictal increased to 25mg bid for mood stabilization/seizures. Latuda will titrate down tomorrow. -Ativan and Haldol PRN for agitation/aggression -Patient was counselled on substance abuse and desired to cut back on use -Patient was informed of the risks, benefits and side effects of the medication and patient verbally consented to taking the medications. Patient signed med consent form and was placed in chart. -Internal Medicine consult to perform medical evaluation and physical. -NRT - nicotine patch -SW on board for discharge planning. Encourage patient to participate in groups to work on coping skills. We'll confirm patient's [facility] intake date for rehab.
[2021-04-26] MEDS: busPIRone HCl 5 MG TAB PO SCH ×2 (13:42→21:27)
[2021-04-26] MEDS: SULFAMETHOX-TMP 800-160MG 1 EACH TAB PO SCH (21:26)
[2021-04-26] MEDS: lamoTRIgine 25 MG TAB PO SCH (21:26)
[2021-04-26] MEDS: MIRTAZAPINE 15 MG TAB PO SCH (21:26)
[2021-04-27] MEDS: NICOTINE 14MG/24HR PATCH TRANSDERM SCH (08:32)
[2021-04-27] MEDS: LURASIDONE 40 MG TAB PO SCH (08:33)
[2021-04-27] MEDS: busPIRone HCl 5 MG TAB PO SCH (08:33)
[2021-04-27] MEDS: METHADONE 10 MG TAB PO SCH (08:33)
[2021-04-27] MEDS: CYANOCOBALAMIN 500 MCG TAB PO SCH (08:33)
[2021-04-27] MEDS: FOLIC ACID 1 MG TAB PO SCH (08:33)
[2021-04-27] MEDS: MULTIVITAMINS, THERA 1 EACH TAB PO SCH (08:34)
[2021-04-27] MEDS: SERTRALINE 100 MG TAB PO SCH (08:34)
[2021-04-27] MEDS: SULFAMETHOX-TMP 800-160MG 1 EACH TAB PO SCH ×2 (08:35→20:42)
[2021-04-27] MEDS: THIAMINE 100 MG TAB PO SCH (08:35)
--- NOTE | 2021-04-27 13:17 | P.PN ---
Progress Note - Text Progress Note Date: 04/27/21 Interval History: Patient was seen today for psychiatric follow-up regarding her depression and anxiety and was directable and agreeable to speak with flex o writer operator in the office. Patient appears to have a soft tone of voice today. She appears to have mild improvement in her hygiene and grooming. She has mainly been isolative in her room since yesterday. She has been taking her medications and is denying any problems with it however states that she feels the BuSpar has not been helping thus far and her anxiety is still bad. She claims that she is still feeling depressed today however is denying any suicidal thoughts. She states that she had frequent awakenings last night and was requesting to have her Remeron increased. At this time patient denies any current suicidal or homical ideations, intent or plan. Patient denies any auditory, visual hallucinations and denies any paranoia or delusions. Patient denies any side effects from the medications and has been compliant with meds. Mental Status Exam: General Appearance: Patient appears to be older than stated age is alert, attempts to cooperate, improving hygiene and grooming. Several piercings. Improving eye contact. Behavior: Patient is calmly sitting in the chair without any agitated behavior. Speech: Patient's speech is fluent and nonpressured. Soft tone of voice Mood/Affect: Patient reports their mood is "anxious and depressed", only improving, affect is congruent and constricted Suicidality/Homicidality: Patient denies having any suicidal or homicidal ideation intent or plan. Perceptions: Patient denies any visual hallucinations and denies any auditory hallucinations Though content/process: Guarded/evasive. logical. More future oriented today. Memory and concentration: AOX3, grossly intact for the purposes of this session. Judgment and insight: improving mildly Assessment Depressive disorder unspecified Generalized anxiety disorder Borderline personality disorder Cocaine abuse Benzodiazepine use disorder Opioid dependence, currently on agonist therapy Nicotine dependence Methamphetamine abuse Plan: -Patient continues to meet criteria for inpatient psychiatric admission for symptom stabilization and safety. Patient has signed adult voluntary form and medication consent and was placed in patient's chart. -Medications: Continue Zoloft 100 mg daily for mood/anxiety with plan to titrate up as needed. Increased BuSpar to 30 mg twice a day for anxiety. Vistaril when necessary for anxiety. Remeron increased to 30 mg daily at bedtime for insomnia/mood. Methadone for opiate dependence. Lamictal 25mg bid for mood stabilization/seizures. Latuda will attempt to titrate down -When necessary Ativan and Haldol for agitation/aggression. -NRT - nicotine patch -SW on board for discharge planning. Encouraged the patient to participate in milieu. Patient apparently has an intake date set for may 07 at . SW to attempt to move that closer. likely d/c tomorrow vs. saturday.
[2021-04-27] MEDS ORDERED: LURASIDONE 20 MG TAB PO SCH (18:00)
[2021-04-27] MEDS: hydrOXYzine pamoate 25 MG CAP PO PRN (18:22)
[2021-04-27] MEDS: lamoTRIgine 25 MG TAB PO SCH (20:42)
[2021-04-27] MEDS: busPIRone HCl 10 MG TAB PO SCH (20:42)
[2021-04-27] MEDS ORDERED: MIRTAZAPINE 15 MG TAB PO SCH (21:00)
--- NOTE | 2021-04-27 21:49 | CONS ---
CONSULTATION CHIEF COMPLAINT: Major depression and history of drug ingestion overdose with a longstanding history of multiple drug addiction and overdose. HISTORY OF PRESENT ILLNESS: Details of this lady's history can be found in her admitting summary. She was in a drug rehab center several months ago and did well on Suboxone for short period of time. She then experienced the recent anniversary of his mother's a year ago from drug overdose and started to relapse. She was discharged from the rehab facility on methadone, but her drug screens continue to show progressively more and variable substances including buprenorphine, Adderall, fentanyl, tranquilizers, etc. She came to the office about a week ago and we tried to hook her up with the access line in hopes of getting her back into a rehab facility. She agreed and it was suggested that she be admitted to [facility] psych unit until she can be transferred to the rehab center. When the ambulance came to get her, she told them to take her [facility] where she was seen in the ER and discharged. She came back to the emergency room several days later, overdosed with somebody with her relating that she had been taking every medication and drug that she could get her hands on. She was very lethargic and she was transferred to [facility] where psych services were available. She also had experienced a grand mal seizure. She is now admitted for management of her major depression. REVIEW OF SYSTEMS: She denies any headaches, neurologic problems, abdominal pain, nausea, vomiting, diarrhea, melena, etc. She is having some dysuria and frequency and does have a UTI. The rest of her history is unremarkable and unchanged. PHYSICAL EXAMINATION: Blood pressure is 123/68 with a pulse of 75, respirations of 20 and she is afebrile. In general, she appeared to be slightly overweight and in no acute distress. Skin color is normal. Skin is warm, dry. Lymph nodes are not enlarged. Head, ears, eyes, nose, mouth and throat were normal. Chest is clear. Cardiac exam is normal. Abdomen is soft, nontender. Extremities: Normal. Neurological: She is intact. IMPRESSION: She is admitted to the hospital with diagnoses: 1. Major depression. 2. Multiple substance abuse and addiction. 3. Grand mal seizure. RECOMMENDATIONS: Continue to manage her depression. It is highly recommended that she return to a rehab facility. MMODL / IJN: [id number] /
[2021-04-28] MEDS: FOLIC ACID 1 MG TAB PO SCH (08:47)
[2021-04-28] MEDS: CYANOCOBALAMIN 500 MCG TAB PO SCH (08:52)
[2021-04-28] MEDS: busPIRone HCl 10 MG TAB PO SCH ×2 (08:52→21:13)
[2021-04-28] MEDS: NICOTINE 14MG/24HR PATCH TRANSDERM SCH (08:52)
[2021-04-28] MEDS: THIAMINE 100 MG TAB PO SCH (08:52)
[2021-04-28] MEDS: METHADONE 10 MG TAB PO SCH (08:53)
[2021-04-28] MEDS: SERTRALINE 100 MG TAB PO SCH (08:53)
[2021-04-28] MEDS: MULTIVITAMINS, THERA 1 EACH TAB PO SCH (08:53)
[2021-04-28] MEDS: SULFAMETHOX-TMP 800-160MG 1 EACH TAB PO SCH ×2 (08:53→21:14)
[2021-04-28] MEDS ORDERED: diphenhydrAMINE 25 MG CAP PO PRN (10:28)
--- NOTE | 2021-04-28 10:34 | P.PN ---
Progress Note - Text Progress Note Date: 04/28/21 Interval History: Patient was seen today for psychiatric follow-up and was directable and agree able to speak with insurance underwriter sales in the office. Patient claims that she was standing in line to get a Vistaril to help with her anxiety. She continues to be preoccupied with her anxiety and states that "it's the worst that it's been right now" and states that her hands have been "shaking". She states that she is really missing her mother and feels depressed as well. She claims that the Zoloft has been helping however it's been very mild at this time. She claims that she also did not sleep well last night and was agreeable to have her Remeron discontinued and started with Zyprexa. She appears to have mild improvement in her hygiene and grooming. She claims that she has been going to groups however continues to be shy and had a soft tone of voice and was guarded about her groups. At this time patient denies any current suicidal or homical ideations, intent or plan. Patient denies any auditory, visual hallucinations and denies any paranoia or delusions. Patient denies any side effects from the medications and has been compliant with meds. Mental Status Exam: General Appearance: Patient appears to be older than stated age is alert, attempts to cooperate, improving hygiene and grooming. Several piercings. Improving eye contact. Behavior: Patient is calmly sitting in the chair without any agitated behavior. Speech: Patient's speech is fluent and nonpressured. Soft tone of voice Mood/Affect: Patient reports their mood is "anxious and depressed", affect is congruent and anxious Suicidality/Homicidality: Patient denies having any suicidal or homicidal ideation intent or plan. Perceptions: Patient denies any visual hallucinations and denies any auditory hallucinations Though content/process: Guarded/evasive. logical. More future oriented today. Focused on her anxiety and mood symptoms. Memory and concentration: AOX3, grossly intact for the purposes of this session. Judgment and insight: improving mildly Assessment Depressive disorder unspecified Generalized anxiety disorder Borderline personality disorder Cocaine abuse Benzodiazepine use disorder Opioid dependence, currently on agonist therapy Nicotine dependence Methamphetamine abuse Plan: -Patient continues to meet criteria for inpatient psychiatric admission for symptom stabilization and safety. Patient has signed adult voluntary form and medication consent and was placed in patient's chart. -Medications: increased Zoloft 150 mg daily for mood/anxiety with plan to titrate up as needed. continue with BuSpar to 30 mg twice a day for anxiety. Vistaril when necessary for anxiety. Discontinued Remeron. Started Zyprexa 2.5 mg daily +5 mg daily at bedtime, this can be increased over the weekend if needed. Added Benadryl 25 mg daily at bedtime when necessary for insomnia. Methadone for opiate dependence. increased Lamictal 50 mg bid for mood stabilization/seizures. d/c latuda -When necessary Ativan and Haldol for agitation/aggression. -NRT - nicotine patch -JOSIE on board for discharge planning. Encouraged the patient to participate in milieu. Patient apparently has an intake date set for may 07 at . JOSIE to attempt to move that closer. likely d/c early next week
[2021-04-28] MEDS: OLANZapine 2.5 MG TAB PO SCH (11:03)
[2021-04-28] MEDS: hydrOXYzine pamoate 25 MG CAP PO PRN (11:03)
[2021-04-28] MEDS: OLANZapine 5 MG TAB PO SCH (21:13)
[2021-04-28] MEDS: lamoTRIgine 25 MG TAB PO SCH (21:13)
[2021-04-29] MEDS: NICOTINE 14MG/24HR PATCH TRANSDERM SCH (08:29)
[2021-04-29] MEDS: THIAMINE 100 MG TAB PO SCH (08:30)
[2021-04-29] MEDS: MULTIVITAMINS, THERA 1 EACH TAB PO SCH (08:30)
[2021-04-29] MEDS: FOLIC ACID 1 MG TAB PO SCH (08:30)
[2021-04-29] MEDS: CYANOCOBALAMIN 500 MCG TAB PO SCH (08:30)
[2021-04-29] MEDS: OLANZapine 2.5 MG TAB PO SCH (08:30)
[2021-04-29] MEDS: busPIRone HCl 10 MG TAB PO SCH ×2 (08:30→20:51)
[2021-04-29] MEDS: SULFAMETHOX-TMP 800-160MG 1 EACH TAB PO SCH ×2 (08:30→20:54)
[2021-04-29] MEDS: SERTRALINE 50 MG TAB PO SCH (08:31)
[2021-04-29] MEDS: METHADONE 10 MG TAB PO SCH (08:31)
[2021-04-29] MEDS: hydrOXYzine pamoate 25 MG CAP PO PRN ×2 (13:30→18:32)
[2021-04-29] MEDS ORDERED: BENZTROPINE MESYLATE 0.5 MG TAB PO STA (13:45)
[2021-04-29] MEDS: lamoTRIgine 25 MG TAB PO SCH (20:51)
[2021-04-29] MEDS: OLANZapine 5 MG TAB PO SCH (20:51)
--- NOTE | 2021-04-29 21:46 | P.PN ---
Progress Note - Text Progress Note Date: 04/29/21 Subjective: Patient was seen today as a cross coverage for Dr. Hernandez. The patient was evaluated, chart reviewed, case discussed with the treatment team. Patient reports broken interrupted sleep last night, and appetite was reported as "decreased". Patient has not been going to groups and other unit activities. The patient is compliant with her medications and denies any adverse reactions. She reports feeling very high anxiety with attacks described as shakiness, increased heart rate, and muscle spasm in her jaw with twitching. States had similar attacks before and which resolved by taking Klonopin or Ativan. Pt was educated about risk of Benzodiazepines with methadone. She took Vistaril but didn't feel much help from it. Offered Benadryl but reports it causes her opposite effect by increasing agitation. Pt responded to one dose of Cogentin which helped with muscle spasm and twitches. Reports feeling depressed but denies S/H I. Denies any hallucinations but reports PI. Denies any manic symptoms. Objective: Vitals has been reviewed. Mental status examination; Appearance: The patient appears stated age, adequately groomed and dressed, no specific features. Gait/posture: Normal gait, Normal arm swinging: No abnormal movements. Attitude and behavior: engaged, cooperative, eye contact. Motor activity: Normal psychomotor activity Speech: Normal rate, tone. Mood: Anxious, depressed Affect: Constricted Thought form: goal-directed, linear, coherent. Thought content: Non-delusional, but reports PI, denies suicidal thoughts, denies homicidal thoughts, denies intentions or plans. Perception: Denies any auditory or visual hallucinations Attention: No impairment. Orientation: Patient patient was fully oriented to time place person and situation. Insight: Patient has fair insight about her psychiatric disorder. Judgment: Patient has fair judgment about [] psychiatric treatment. Assessment: Depressive disorder unspecified Generalized anxiety disorder Borderline personality disorder Cocaine abuse Benzodiazepine use disorder Opioid dependence, currently on agonist therapy Nicotine dependence Methamphetamine abuse Plan: Continue inpatient level of care due to need for further monitoring and stabilization. Precautions: Continue 15 minutes check for safety. Consider medical consultation if any acute medical issues arise. Provide the patient individual, group therapy, substance use disorder counseling to give better insight and learn coping skills. Medications: Buspar for anxiety symptoms. Lamictal for mood stabilization. Zyprexa for mood stabilization. Zoloft for depression and anxiety. Folic and thiamine supplement. Pt is currently on MMT 140 mg daily. Continue as needed medications for psychiatric emergencies including psychosis, agitation and anxiety. Continue non-psychiatric medications for medical conditions as recommended by the medical team. Discharge patient to OUTPATIENT services upon a stabilization
[2021-04-30] MEDS: NICOTINE 14MG/24HR PATCH TRANSDERM SCH (08:31)
[2021-04-30] MEDS: busPIRone HCl 10 MG TAB PO SCH ×2 (08:32→20:50)
[2021-04-30] MEDS: OLANZapine 2.5 MG TAB PO SCH (08:32)
[2021-04-30] MEDS: MULTIVITAMINS, THERA 1 EACH TAB PO SCH (08:32)
[2021-04-30] MEDS: SERTRALINE 50 MG TAB PO SCH (08:32)
[2021-04-30] MEDS: THIAMINE 100 MG TAB PO SCH (08:32)
[2021-04-30] MEDS: SULFAMETHOX-TMP 800-160MG 1 EACH TAB PO SCH ×2 (08:32→20:51)
[2021-04-30] MEDS: FOLIC ACID 1 MG TAB PO SCH (08:32)
[2021-04-30] MEDS: CYANOCOBALAMIN 500 MCG TAB PO SCH (08:32)
[2021-04-30] MEDS: METHADONE 10 MG TAB PO SCH (08:33)
[2021-04-30] MEDS: hydrOXYzine pamoate 25 MG CAP PO PRN ×2 (08:36→15:17)
[2021-04-30] MEDS ORDERED: LORazepam 1 MG TAB PO STA (17:08)
[2021-04-30] MEDS: lamoTRIgine 25 MG TAB PO SCH (20:50)
[2021-04-30] MEDS: PRAZOSIN 1 MG CAP PO SCH (20:51)
[2021-04-30] MEDS: OLANZapine 10 MG TAB PO SCH (20:51)
[2021-04-30] MEDS: haloperidoL 5 MG TAB PO PRN (22:39)
--- NOTE | 2021-05-01 00:40 | P.PN ---
Progress Note - Text Progress Note Date: 04/30/21 Subjective: Patient was seen today as a cross coverage for Dr. Hernandez. The patient was evaluated, chart reviewed, case discussed with the treatment team. Patient reports is still having severe anxiety and tremors. She reports nightmares that continued to have been frequently over the past week and he requested medication to help with the nightmares. Continued to feel depressed, and irritable. Generally, she feels the medications are not helping her symptoms and she doesn't feel safe going back home as she is still having suicidal thoughts. Discussed medication changes and agreed to try prazosin for nightmares. We will increase Zoloft and Zyprexa to achieve better mood s tabilization. Objective: Vitals has been reviewed. Mental status examination; Appearance: The patient appears stated age, adequately groomed and dressed, no specific features. Gait/posture: Normal gait, Normal arm swinging: No abnormal movements. Attitude and behavior: engaged, cooperative, eye contact. Motor activity: Normal psychomotor activity Speech: Normal rate, tone. Mood: Anxious, depressed Affect: Constricted Thought form: goal-directed, linear, coherent. Thought content: Non-delusional, but reports PI, reports passive suicidal thoughts, denies homicidal thoughts, denies intentions or plans. Perception: Denies any auditory or visual hallucinations Attention: No impairment. Orientation: Patient patient was fully oriented to time place person and situation. Insight: Patient has fair insight about her psychiatric disorder. Judgment: Patient has fair judgment about [] psychiatric treatment. Assessment: Depressive disorder unspecified Generalized anxiety disorder Borderline personality disorder Cocaine abuse Benzodiazepine use disorder Opioid dependence, currently on agonist therapy Nicotine dependence Methamphetamine abuse Plan: Continue inpatient level of care due to need for further monitoring and stabilization. Precautions: Continue 15 minutes check for safety. Consider medical consultation if any acute medical issues arise. Provide the patient individual, group therapy, substance use disorder counseling to give better insight and learn coping skills. Medications: Buspar for anxiety symptoms. Lamictal for mood stabilization. Zyprexa for mood stabilization and increase the dose to 2.5 mg a.m. and 10 mg at bedtime. Zoloft for depression and anxiety and increase the dose to 200 mg daily. Folic and thiamine supplement. Start prazosin 1 mg at bedtime for nightmares. Hold if blood pressure is lower than 90/55 Pt is currently on MMT 140 mg daily. Continue as needed medications for psychiatric emergencies including psychosis, agitation and anxiety. Continue non-psychiatric medications for medical conditions as recommended by the medical team. Discharge patient to OUTPATIENT services upon a stabilization
[2021-05-01] MEDS: NICOTINE 14MG/24HR PATCH TRANSDERM SCH (08:57)
[2021-05-01] MEDS: busPIRone HCl 10 MG TAB PO SCH ×2 (08:57→19:57)
[2021-05-01] MEDS: METHADONE 10 MG TAB PO SCH (08:58)
[2021-05-01] MEDS: FOLIC ACID 1 MG TAB PO SCH (08:58)
[2021-05-01] MEDS: CYANOCOBALAMIN 500 MCG TAB PO SCH (08:58)
[2021-05-01] MEDS: SULFAMETHOX-TMP 800-160MG 1 EACH TAB PO SCH ×2 (09:00→22:35)
[2021-05-01] MEDS: OLANZapine 2.5 MG TAB PO SCH (09:00)
[2021-05-01] MEDS: THIAMINE 100 MG TAB PO SCH (09:00)
[2021-05-01] MEDS: MULTIVITAMINS, THERA 1 EACH TAB PO SCH (09:00)
[2021-05-01] MEDS ORDERED: SERTRALINE 100 MG TAB PO SCH (09:00)
--- NOTE | 2021-05-01 11:43 | P.PN ---
Progress Note - Text Progress Note Date: 05/01/21 Interval History: Patient was seen today for psychiatric follow-up regarding her depression and anxiety. Patient was agreeable to speak to clinical writer in the office today. She claims that she is not feeling any benefits from the Zoloft and wants to be switched from this medication. Patient was agreeable to try Effexor. She claims that she is still feeling "shaky" and was asking about different anxiety medications and was fairly preoccupied with her medications. She was also asking about benzodiazepines including Ativan which she received 1 dose over the weekend. She claims that "other people on the unit getting it why aren't I". She claims that she is still having depressed thoughts and has not been leaving her room and is fairly isolative. Her hygiene and grooming continue to remain poor. She did state that she slept better last night with the Zyprexa. She has not been going to any groups over the weekend however continues to claim that she wants to go to rehab. At this time patient denies any current suicidal or homical ideations, intent or plan. Patient denies any auditory, visual hallucinations and denies any paranoia or delusions. Patient denies any side effects from the medications and has been compliant with meds. Mental Status Exam: General Appearance: Patient appears to be older than stated age is alert, attempts to cooperate, improving hygiene and grooming. Several piercings. Poor eye contact Behavior: Patient is calmly sitting in the chair without any agitated behavior. Appears to be anxious and shaking. Speech: Patient's speech is fluent and nonpressured. Soft tone of voice. Irritable at times Mood/Affect: Patient reports their mood is "anxious and depressed", affect is congruent and anxious Suicidality/Homicidality: Patient denies having any suicidal or homicidal ideation intent or plan. Perceptions: Patient denies any visual hallucinations and denies any auditory hallucinations Though content/process: Guarded/evasive. logical. More future oriented today. Focused on her anxiety and mood symptoms along with her medications. Memory and concentration: AOX3, grossly intact for the purposes of this session. Judgment and insight: Poor Assessment Depressive disorder unspecified Generalized anxiety disorder Borderline personality disorder Cocaine abuse Benzodiazepine use disorder Opioid dependence, currently on agonist therapy Nicotine dependence Methamphetamine abuse Plan: -Patient continues to meet criteria for inpatient psychiatric admission for symptom stabilization and safety. Patient has signed adult voluntary form and medication consent and was placed in patient's chart. -Medications: Discontinued Zoloft at this time due to ineffectiveness and will start patient on Effexor 37.5 mg daily for mood/anxiety. continue with BuSpar to 30 mg twice a day for anxiety. Vistaril when necessary for anxiety. Continue with Zyprexa 2.5 mg daily + 10 mg daily at bedtime. Benadryl 25 mg daily at bedtime when necessary for insomnia. Methadone for opiate dependence. Continue with Lamictal 50 mg bid for mood stabilization/seizures. -When necessary Ativan and Haldol for agitation/aggression. -NRT - nicotine patch - on board for discharge planning. Encouraged the patient to participate in milieu. Patient apparently has an intake date set for may 07 at . SW to attempt to move that closer. likely d/c in 2-3 days
[2021-05-01] MEDS: VENLAFAXINE HCL ER 37.5 MG CAP PO SCH (12:07)
[2021-05-01] MEDS: hydrOXYzine pamoate 25 MG CAP PO PRN ×2 (13:03→20:01)
[2021-05-01] MEDS: haloperidoL 5 MG TAB PO PRN (19:26)
[2021-05-01] MEDS: lamoTRIgine 25 MG TAB PO SCH (19:56)
[2021-05-01] MEDS: PRAZOSIN 1 MG CAP PO SCH (19:57)
[2021-05-01] MEDS: OLANZapine 10 MG TAB PO SCH (19:57)
[2021-05-02] MEDS: busPIRone HCl 10 MG TAB PO SCH ×2 (08:43→20:41)
[2021-05-02] MEDS: VENLAFAXINE HCL ER 37.5 MG CAP PO SCH (08:43)
[2021-05-02] MEDS: NICOTINE 14MG/24HR PATCH TRANSDERM SCH (08:43)
[2021-05-02] MEDS: METHADONE 10 MG TAB PO SCH (08:43)
[2021-05-02] MEDS: OLANZapine 2.5 MG TAB PO SCH (08:43)
[2021-05-02] MEDS: MULTIVITAMINS, THERA 1 EACH TAB PO SCH (08:43)
[2021-05-02] MEDS: CYANOCOBALAMIN 500 MCG TAB PO SCH (08:43)
[2021-05-02] MEDS: FOLIC ACID 1 MG TAB PO SCH (08:43)
[2021-05-02] MEDS: THIAMINE 100 MG TAB PO SCH (08:45)
[2021-05-02] MEDS: SULFAMETHOX-TMP 800-160MG 1 EACH TAB PO SCH ×2 (08:45→20:42)
--- NOTE | 2021-05-02 08:57 | P.PN ---
Progress Note - Text Progress Note Date: 05/02/21 Interval History: Patient was seen today for psychiatric follow-up regarding her depression and anxiety. Patient was agreeable to speak to typewriter mechanic in the office today. She appears to have a mild improvement in her affect today. She claims that she took her medications earlier today however claims that she still feels "shaky" and patient's shakiness was mainly in her hands and when she was distracted the tremor in her hand dissipated. She claims that her mood has been gradually improving however still claims that she feels anxious. She is agreeable to try propranolol today. She states that she was able to sleep fairly throughout the night however had some awakenings. Her hygiene and grooming have been gradually improving. She claims that she went to a couple of groups yesterday and plans to go to groups today. At this time patient denies any current suicidal or homical ideations, intent or plan. Patient denies any auditory, visual hallucinations and denies any paranoia or delusions. Patient denies any side effects from the medications and has been compliant with meds. Mental Status Exam: General Appearance: Patient appears to be older than stated age is alert, attempts to cooperate, improving hygiene and grooming. Several piercings. Proving eye contact Behavior: Patient is calmly sitting in the chair without any agitated behavior. Appears to be anxious and shaking, currently improving. Speech: Patient's speech is fluent and nonpressured. Mood/Affect: Patient reports their mood is "anxious and depressed", improving mildly, affect is congruent and anxious Suicidality/Homicidality: Patient denies having any suicidal or homicidal ideation intent or plan. Perceptions: Patient denies any visual hallucinations and denies any auditory hallucinations Though content/process: Guarded/evasive. logical. More future oriented today. Focused on her anxiety and mood symptoms Memory and concentration: AOX3, grossly intact for the purposes of this session. Judgment and insight: Poor, improving mildly Assessment Depressive disorder unspecified Generalized anxiety disorder Borderline personality disorder Cocaine abuse Benzodiazepine use disorder Opioid dependence, currently on agonist therapy Nicotine dependence Methamphetamine abuse Plan: -Patient continues to meet criteria for inpatient psychiatric admission for symptom stabilization and safety. Patient has signed adult voluntary form and medication consent and was placed in patient's chart. -Medications: increase Effexor 75 mg daily for mood/anxiety. continue with BuSpar to 30 mg twice a day for anxiety. Vistaril when necessary for anxiety. Continue with Zyprexa 2.5 mg daily + 10 mg daily at bedtime. Methadone for opiate dependence. Continue with Lamictal 50 mg bid for mood stabilization/seizures. Added propranolol 20 mg twice a day for tremors/anxiety. -When necessary Ativan and Haldol for agitation/aggression. -NRT - nicotine patch -SW on board for discharge planning. Encouraged the patient to participate in milieu. Patient apparently has an intake date set for may 07 at . SW to attempt to move that closer. likely d/c in 1-2 days, she will be going to stay with her grandma until her intake date at [place].
[2021-05-02] MEDS: PROPRANOLOL 20 MG TAB PO SCH ×2 (09:37→20:42)
[2021-05-02] MEDS: SENNOSIDES-DOCUSATE SODIUM 1 EACH TAB PO SCH ×2 (09:37→20:41)
[2021-05-02] MEDS: hydrOXYzine pamoate 25 MG CAP PO PRN ×2 (13:00→19:22)
[2021-05-02] MEDS: OLANZapine 10 MG TAB PO SCH (20:41)
[2021-05-02] MEDS: PRAZOSIN 1 MG CAP PO SCH (20:41)
[2021-05-02] MEDS: lamoTRIgine 25 MG TAB PO SCH (20:42)
[2021-05-03 07:02] VITALS: TEMP 97.5
[2021-05-03] MEDS: SULFAMETHOX-TMP 800-160MG 1 EACH TAB PO SCH ×2 (08:38→21:22)
[2021-05-03] MEDS: VENLAFAXINE HCL ER 75 MG CAP PO SCH (08:38)
[2021-05-03] MEDS: OLANZapine 2.5 MG TAB PO SCH (08:38)
[2021-05-03] MEDS: SENNOSIDES-DOCUSATE SODIUM 1 EACH TAB PO SCH ×2 (08:38→21:22)
[2021-05-03] MEDS: MULTIVITAMINS, THERA 1 EACH TAB PO SCH (08:38)
[2021-05-03] MEDS: NICOTINE 14MG/24HR PATCH TRANSDERM SCH (08:38)
[2021-05-03] MEDS: busPIRone HCl 10 MG TAB PO SCH ×2 (08:38→21:21)
[2021-05-03] MEDS: PROPRANOLOL 20 MG TAB PO SCH ×2 (08:38→21:21)
[2021-05-03] MEDS: THIAMINE 100 MG TAB PO SCH (08:38)
[2021-05-03] MEDS: CYANOCOBALAMIN 500 MCG TAB PO SCH (08:38)
[2021-05-03] MEDS: METHADONE 10 MG TAB PO SCH (08:39)
[2021-05-03] MEDS: FOLIC ACID 1 MG TAB PO SCH (08:39)
--- NOTE | 2021-05-03 11:31 | P.PN ---
Progress Note - Text Progress Note Date: 05/03/21 Interval History: Patient was seen today for psychiatric follow-up regarding her depression and anxiety. Patient was agreeable to speak to software writer in the office today. She appears to have a mild improvement in her affect today and also her hygiene and grooming. She appears to have some improvement in her tremors in her hands. She claims that she is feeling overwhelmed and feeling "very alone". She states that she spoke with her father yesterday who is "also an addict". She claims that she feels that substance use runs in her family significantly and feels that she has to rebuild a lot of relationships that have been destroyed. She claims that her mood has gradually been improving on the unit and she has been attempting to go to groups. She states that she did have some awakenings last night in her sleep due to having nightmares and was agreeable to have her process and increased. At this time patient denies any current suicidal or homical ideations, intent or plan. Patient denies any auditory, visual hallucinations and denies any paranoia or delusions. Patient denies any side effects from the medications and has been compliant with meds. Mental Status Exam: General Appearance: Patient appears to be older than stated age is alert, attempts to cooperate, improving hygiene and grooming. Several piercings. improving eye contact Behavior: Patient is calmly sitting in the chair without any agitated behavior. appears to be less anxious today. Tremors have resolved. Speech: Patient's speech is fluent and nonpressured. Mood/Affect: Patient reports their mood is improving mildly, affect is congruent Suicidality/Homicidality: Patient denies having any suicidal or homicidal ideation intent or plan. Perceptions: Patient denies any visual hallucinations and denies any auditory hallucinations Though content/process: Guarded/evasive. logical. More future oriented today. Memory and concentration: AOX3, grossly intact for the purposes of this session. Judgment and insight: improving mildly Assessment Depressive disorder unspecified Generalized anxiety disorder Borderline personality disorder Cocaine abuse Benzodiazepine use disorder Opioid dependence, currently on agonist therapy Nicotine dependence Methamphetamine abuse Plan: -Patient continues to meet criteria for inpatient psychiatric admission for symptom stabilization and safety. Patient has signed adult voluntary form and medication consent and was placed in patient's chart. -Medications: Effexor 75 mg daily for mood/anxiety. continue with BuSpar to 30 mg twice a day for anxiety. Vistaril when necessary for anxiety. Continue with Zyprexa 2.5 mg daily + 10 mg daily at bedtime. Methadone for opiate dependence. Continue with Lamictal 50 mg bid for mood stabilization/seizures. propranolol 20 mg twice a day for tremors/anxiety., Increased prazosin to 2 mg daily at bedtime for nightmares. -When necessary Ativan and Haldol for agitation/aggression. -NRT - nicotine patch - on board for discharge planning. Encouraged the patient to participate in milieu. Patient apparently has an intake date set for may 07 at . Likely discharge tomorrow, she will be going to stay with her grandma until her intake date at [place].
[2021-05-03] MEDS: hydrOXYzine pamoate 25 MG CAP PO PRN (13:16)
[2021-05-03] MEDS ORDERED: PRAZOSIN 1 MG CAP PO SCH (21:00)
[2021-05-03] MEDS: OLANZapine 10 MG TAB PO SCH (21:21)
[2021-05-03] MEDS: lamoTRIgine 25 MG TAB PO SCH (21:21)
[2021-05-04 07:00] VITALS: RESP 16
[2021-05-04 08:27] VITALS: BP 122/74; PULSE 99
[2021-05-04] MEDS: METHADONE 10 MG TAB PO SCH (08:29)
[2021-05-04] MEDS: hydrOXYzine pamoate 25 MG CAP PO PRN (08:29)
[2021-05-04] MEDS: MULTIVITAMINS, THERA 1 EACH TAB PO SCH (08:30)
[2021-05-04] MEDS: VENLAFAXINE HCL ER 75 MG CAP PO SCH (08:30)
[2021-05-04] MEDS: SENNOSIDES-DOCUSATE SODIUM 1 EACH TAB PO SCH (08:30)
[2021-05-04] MEDS: NICOTINE 14MG/24HR PATCH TRANSDERM SCH (08:30)
[2021-05-04] MEDS: THIAMINE 100 MG TAB PO SCH (08:30)
[2021-05-04] MEDS: OLANZapine 2.5 MG TAB PO SCH (08:30)
[2021-05-04] MEDS: PROPRANOLOL 20 MG TAB PO SCH (08:30)
[2021-05-04] MEDS: FOLIC ACID 1 MG TAB PO SCH (08:30)
[2021-05-04] MEDS: CYANOCOBALAMIN 500 MCG TAB PO SCH (08:30)
[2021-05-04] MEDS: busPIRone HCl 10 MG TAB PO SCH (08:30)
[2021-05-04] MEDS ORDERED: hydrOXYzine pamoate 25 MG CAP PO PRN (09:51)
--- NOTE | 2021-05-04 10:45 | P.DS ---
Providers Date of admission: 04/25/21 16:09 Expected date of discharge: 05/04/21 Attending physician: Casper Hernandez MD Consults: 04/25/21 14:31 Consult Physician Routine Consulting Provider: Tony Connolly Consult Reason/Comments: H&P and medical Do you want consulting provider notified?: Yes Primary care physician: Casper Hernandez MD - Discharge Diagnosis(es) (1) Depressive disorder Current Visit: Yes Status: Acute Priority: High (2) Generalized anxiety disorder Current Visit: Yes Status: Acute Priority: High (3) Borderline personality disorder Current Visit: Yes Status: Acute Priority: Medium (4) Cocaine abuse Current Visit: Yes Status: Acute Priority: High (5) Benzodiazepine abuse Current Visit: Yes Status: Acute Priority: High (6) Opioid dependence on agonist therapy Current Visit: Yes Status: Acute Priority: Medium (7) Nicotine dependence Current Visit: Yes Status: Acute Priority: Low (8) Methamphetamine abuse Current Visit: Yes Status: Acute Priority: High Hospital Course: Admission HPI: Admission note was completed by music writer "This patient is a 30-year-old female with a history of polysubstance abuse who currently lives with her grandma is unemployed and has no kids and is single. HPI was taken from the psychiatric consult note by music writer "The patient presented to the hospital as a transfer from an outside hospital. Patient apparently according to ER report has been using methamphetamine and heroin for the past couple of days. Patient presented with altered mental status and a seizure. Computed tomography scan was negative and UDS is positive for methadone, methamphetamine, benzodiazepines and cocaine. Patient was seen at the bedside today and appeared to be disheveled in appearance. She states that she is feeling depressed and very anxious today. She claims that she has been using various different drugs on the street and was fairly preoccupied with benzodiazepines and Xanax. She states that her PCP discontinued her Xanax. She states that she had a seizure recently. She claims that she has been using methamphetamine for approximately 2 days "a lot" and also claims that she took a "couple of Xanax". She states that she also used cocaine 1-2 times. She states that she is doing regular dosing with [facility] in [place] for her methadone. She claims that she is physically unwell and is complaining of severe anxiety. She claims that her sleep is poor. She claims that she has not been taking her medications . At this time patient denies any current suicidal or homical ideations, intent or plan. Patient denies any auditory, visual hallucinations and denies any paranoia or delusions. Patients admits to using recreational drugs as listed above. She also states that she drinks occasionally and smokes cigarettes. She claims that she is having withdrawal symptoms at this time including pain and anxiety, restlessness." Patient was seen once again today for admission and evaluation. Patient states that she is still feeling anxious "very high" and claims that Ativan has helped her in the past with this. She continues to speak about benzodiazepines. She claims that she was actually able to sleep fairly well last night. She claims that she believes that she has a rehab intake at [facility] on 05/07. She states that she also believes that her close got lost when she was transferred from the other hospital. She states that her mood is been improving. She is denying any auditory or visual hallucinations at this time and denies any suicidal or homicidal ideations intent or plan." Hospital course: Upon admission to the unit patient was initially depressed and anxious and having suicidal thoughts. Patient was however directable and agreeable to commence treatment and signed adult voluntary form. Patient initially was fairly isolative, depressed however with treatment patient got along well with other patients on the unit and followed unit protocol. Patient was compliant with the medications and denied any side effects throughout hospital course. Patient was started on Effexor and titrated up to dose of 150 mg daily for mood/anxiety, BuSpar 30 mg twice a day for anxiety, Vistaril when necessary for anxiety, Zyprexa 2.5 mg daily +15 mg daily at bedtime for mood/insomnia, methadone was continued at 140 mg daily for opioid dependence. Patient was seen by neurology while she was on the medical floors before transfer who started patient on Lamictal 2 titrated up to 50 mg twice a day for mood stabilization/seizures. Patient was also started on propranolol 20 mg twice a day for tremors/anxiety. Increased patients. Prazosin to 2 mg daily at bedtime for nightmares. Patient spoke of her stressors and engaged in therapy both group and individual. Patient was also seen by medical team for history and physical exam. Throughout the course of the hospitalization patient gradually improved with regards to mood, anxiety, suicidal thoughts, sleep and became more future oriented with improved insight and judgment. On the day of discharge patient denied any suicidal or homicidal ideations intent or plan denied any auditory or visual hallucinations. Patient endorsed wanting to live for her sobriety and her future. The patient denied any access to guns or weapons. Patient denied any paranoia and did not endorse any delusions. Patient does have a significant history of substance abuse and was counseled on abstaining from all substances including alcohol and marijuana. Patient already had an intake appointment at [facility] on 05/07 and today patient will be discharged to her grandmother's house until her appointment on Saturday for rehab. Patient was also counseled on the medications and need for regular compliance and was encouraged to follow-up with their outpatient appointment for mental health and also for primary care. Prior to discharge a family meeting will be arranged by social media specialist to answer any questions and ensure safety upon discharge. Mental status exam: General Appearance: Patient appears to be stated age is alert, pleasant, and cooperative. Patient is in no acute distress and has improved hygiene and grooming Behavior: Patient is calmly seated without any agitated behavior. Speech: Patient's speech is fluent and nonpressured. Soft tone of voice. Mood/Affect: Patient reports their mood is "better", affect is congruent and euthymic. Suicidality/Homicidality: Patient denies having any suicidal or homicidal ideation intent or plan. Perceptions: Patient denies any auditory or visual hallucinations. Though content/process: There is no evidence of any delusional thought content and thought process is linear and goal-directed. more future oriented Memory and concentration: AOX3, grossly intact for the purposes of this session. Can spell "WORLD" backwards correctly. Judgment and insight: chronically poor, however has improved with guarded prognosis Impression: Depressive disorder unspecified Generalized anxiety disorder Borderline personality disorder Cocaine abuse Benzodiazepine use disorder Opioid dependence, currently on agonist therapy Methamphetamine abuse Nicotine dependence Plan: -Continue with discharge today as patient has improved and stabilized psychiatrically and is not currently an imminent threat to herself and/or others. Patient will remain at chronically elevated risk for harm to self and/or others due to her impulsivity and polysubstance abuse. -Continue medications: Effexor 150 mg daily for mood/anxiety, BuSpar 30 mg twice a day for anxiety, Vistaril 50 mg twice a day when necessary for anxiety, Zypr exa 2.5 mg daily +50 mg daily at bedtime for mood/insomnia/racing thoughts, methadone can be continued at 140 mg daily for opioid dependence (she will continue dosing at [facility]), Lamictal 50 mg twice a day for mood stabilization/seizures, propranolol 20 mg twice a day for tremors/anxiety, prazosin 2 mg daily at bedtime for nightmares. -Patient was counseled on the need for medication compliance and appropriate follow-up at mental health and also primary care for medical issues. Patient verbalized understanding and agreed. -Social work to arrange for and conduct family meeting to ensure safety upon discharge and answer any questions/concerns. Social work also to arrange for patients follow up appointments with [facility] for psychiatric care along with follow up with primary care provider. -Patient counseled on abstaining from recreational drugs and marijuana and alcohol. Was informed/educated on the adverse effects on their physical and mental health. Patient verbally agreed and understood. Patient will be discharged to her grandmother's house today who will be taking her to her intake appointment at [facility] on May 07 -Patient was instructed to return to the hospital or seek immediate medical care if their psychiatric or medical symptoms do worsen or reoccur. Allergies Allergy/AdvReac Type Severity Reaction Status Date / Time lactose Allergy Nausea & Verified 04/25/21 16:00 Vomiting & Diarrhea trazodone AdvReac dizziness Verified 04/23/21 19:43 Vital Signs Temp 97.5 F L 05/04/21 06:36 Pulse 99 05/04/21 08:27 Resp 16 05/04/21 06:36 BP 122/74 05/04/21 08:27 Pulse Ox 97 04/28/21 08:57 Patient Condition at Discharge: Stable Plan - Discharge Summary Discharge Rx Participant: No New Discharge Prescriptions: New Multivitamins, Thera [Multivitamin (formulary)] 1 each PO DAILY 30 Days tab Sennosides-Docusate Sodium [Senokot-S] 1 each PO BID 30 Days tab hydrOXYzine pamoate [Vistaril] 50 mg PO BID PRN 30 Days cap PRN Reason: Anxiety Cyanocobalamin [Vitamin B-12] 500 mcg PO DAILY 30 Days tab lamoTRIgine [LaMICtal] 50 mg PO BID 30 Days tab busPIRone HCl [Buspar] 30 mg PO BID 30 Days tab Venlafaxine HCl ER [Effexor XR] 150 mg PO DAILY 30 Days cap.er.24h Folic Acid 4 mg PO DAILY 30 Days tab Nicotine 14Mg/24Hr Patch [Habitrol] 1 patch TRANSDERM DAILY 14 Days patch Propranolol [Inderal] 20 mg PO BID 30 Days tab Prazosin [Minipress] 2 mg PO HS 30 Days cap Thiamine [Vitamin B-1] 100 mg PO DAILY 30 Days tab OLANZapine [ZyPREXA] 2.5 mg PO DAILY 30 Days tab OLANZapine [ZyPREXA] 15 mg PO HS 30 Days tablet Continue Methadone HCl [Methadone Intensol] 140 mg PO DAILY rOPINIRole HCL [Requip] 0.5 mg PO HS 30 Days tab Discontinued Mirtazapine [Remeron] 15 mg PO HS 30 Days tab ALPRAZolam [Xanax] 0.5 mg PO BID PRN PRN Reason: Anxiety Lurasidone [Latuda] 40 mg PO DAILY 30 Days tab Cyanocobalamin [Vitamin B-12] 500 mcg PO DAILY 30 Days tab Gabapentin 800 mg PO QID Multivitamins, Thera [Multivitamin (formulary)] 1 tab PO DAILY Diphenoxylate HCl/Atropine [Lomotil 2.5-0.025 mg Tablet] 1 tab PO QID PRN PRN Reason: Diarrhea Discharge Medication List Methadone HCl [Methadone Intensol] 140 mg PO DAILY 03/22/21 [History] Cyanocobalamin [Vitamin B-12] 500 mcg PO DAILY 30 Days tab 05/04/21 [Rx] Folic Acid 4 mg PO DAILY 30 Days tab 05/04/21 [Rx] Multivitamins, Thera [Multivitamin (formulary)] 1 each PO DAILY 30 Days tab 05/04/21 [Rx] Nicotine 14Mg/24Hr Patch [Habitrol] 1 patch TRANSDERM DAILY 14 Days patch 05/04/21 [Rx] OLANZapine [ZyPREXA] 2.5 mg PO DAILY 30 Days tab 05/04/21 [Rx] OLANZapine [ZyPREXA] 15 mg PO HS 30 Days tablet 05/04/21 [Rx] Prazosin [Minipress] 2 mg PO HS 30 Days cap 05/04/21 [Rx] Propranolol [Inderal] 20 mg PO BID 30 Days tab 05/04/21 [Rx] Sennosides-Docusate Sodium [Senokot-S] 1 each PO BID 30 Days tab 05/04/21 [Rx] Thiamine [Vitamin B-1] 100 mg PO DAILY 30 Days tab 05/04/21 [Rx] Venlafaxine HCl ER [Effexor XR] 150 mg PO DAILY 30 Days cap.er.24h 05/04/21 [Rx] busPIRone HCl [Buspar] 30 mg PO BID 30 Days tab 05/04/21 [Rx] hydrOXYzine pamoate [Vistaril] 50 mg PO BID PRN 30 Days cap 05/04/21 [Rx] lamoTRIgine [LaMICtal] 50 mg PO BID 30 Days tab 05/04/21 [Rx] rOPINIRole HCL [Requip] 0.5 mg PO HS 30 Days tab 05/04/21 [Rx] Follow up Appointment(s)/Referral(s): [facility]Outside] - 05/08/21 10:00 am [facility] [Outside] - 05/04/21 2:30 pm (05-04-21 @ 2:30 with Sheryl Jasso at [facility] office 05-05-21 @ 9:30 with CHANDRA Kraus at [facility] office ) [facility] [NON-STAFF] - 1 Week Patient Instructions/Handouts: Seizure/Epilepsy Discharge Instructions & Follow-Up, How to Stop Smoking (DC), Bipolar Disorder (DC), Epilepsy (DC), Abuse of Alcohol (DC), Methamphetamine Abuse (DC), Recurrent Seizures in Adults (DC), Suicide Prevention (DC), Narcotic Use Disorder (DC) Discharge Disposition: HOME SELF-CARE
[2021-05-04] MEDS ORDERED: OLANZapine 5 MG TAB PO SCH (21:00)
[2021-05-05] MEDS ORDERED: VENLAFAXINE HCL ER 150 MG CAP PO SCH (09:00)
== END 2021-05-04 12:13 | disposition home or self-care (01) | DRG 885 ==
LOC: 3MHU 16:09
PROVIDERS: ADMIT Psychiatry & Neurology Psychiatry; ATTEND Psychiatry & Neurology Psychiatry
DX: F31.9 Bipolar disorder, unspecified (principal); F11.20 Opioid dependence, uncomplicated; F13.10 Sedative, hypnotic or anxiolytic abuse, uncomplicated; F14.10 Cocaine abuse, uncomplicated; F15.10 Other stimulant abuse, uncomplicated; F17.210 Nicotine dependence, cigarettes, uncomplicated; F41.1 Generalized anxiety disorder; F51.5 Nightmare disorder; F60.3 Borderline personality disorder; G40.409 Other generalized epilepsy and epileptic syndromes, not intractable, without status epilepticus; G47.00 Insomnia, unspecified; Z79.899 Other long term (current) drug therapy

== ENCOUNTER 2021-07-08 17:29 | Inpatient (IN) | payer MEDICAID, OTHER ==
[2021-07-08 21:48] LABS: Amphetamine Screen,Urine Not Detected (NotDetected); Barbiturate Screen,Urine Not Detected (NotDetected); Benzodiazepines Screen,Urine Not Detected (NotDetected); Cocaine Screen,Urine Detected (NotDetected); Methadone Screen, Urine Detected (NotDetected); Opiate Screen,Urine Not Detected (NotDetected); Oxycodone Screen, Urine Not Detected (NotDetected); Phencyclidine Screen,Urine Not Detected (NotDetected); Tricyclic Antidepressant,Urine Not Detected (NotDetected); Urn Cannabinoid Scrn Detected (NotDetected)
[2021-07-08] MEDS ORDERED: MAG HYDROX/AL HYDROX/SIMETH 30 ML CUP PO PRN (22:01)
[2021-07-08] MEDS ORDERED: ACETAMINOPHEN TAB 325 MG TAB PO PRN (22:01)
[2021-07-08] MEDS ORDERED: MAGNESIUM HYDROXIDE 2,400 MG/10 ML CUP PO PRN (22:01)
[2021-07-08] MEDS ORDERED: LORazepam 2 MG/ML INJ IM PRN (22:06)
[2021-07-08] MEDS ORDERED: HALOPERIDOL LACTATE 5 MG/ML 1 ML VIAL IM PRN (22:06)
--- NOTE | 2021-07-08 22:11 | ED ---
General Adult HPI - General Chief complaint: Psychiatric Symptoms Stated complaint: mental health Time Seen by Provider: 07/08/21 17:45 Source: patient, RN notes reviewed, old records reviewed Mode of arrival: ambulatory Limitations: no limitations - History of Present Illness Initial comments: Patient is a 31-year-old female with past medical history remarkable for depression is noncompliant with her medications at home presents emergency Department complaining of acute onset of suicidal ideation. She states she is been feeling more depressed lately and today was about to attempt suicide by hanging herself. She states that her grandma walked in and stopped her. She states she never was able to put something around her neck and denies any inj uries from the incident. They brought to the emergency department for evaluation. She denies any homicidal ideations, attempts complaints. Denies any visual or auditory hallucinations. She otherwise has no acute complaints at this time, denying any drug use, alcohol use. She denies any chest pain, shortness breath, abdominal pain, nausea, vomiting. Denies any headache, weakness, numbness. Denies any fevers, chills, cough. Patient presents for her suicidal ideations and plan. - Related Data Home Medications Medication Instructions Recorded Confirmed Methadone HCl [Methadone Intensol] 140 mg PO DAILY 03/22/21 07/08/21 Multivitamins, Thera [Multivitamin 1 tab PO DAILY 07/08/21 07/08/21 (formulary)] Nicotine 14Mg/24Hr Patch [Habitrol] 1 patch TRANSDERM DAILY PRN 07/08/21 07/08/21 Sennosides-Docusate Sodium 1 tab PO BID 07/08/21 07/08/21 [Senokot-S] Previous Rx's Medication Instructions Recorded Cyanocobalamin [Vitamin B-12] 500 mcg PO DAILY 30 Days tab 05/04/21 Folic Acid 4 mg PO DAILY 30 Days tab 05/04/21 OLANZapine [ZyPREXA] 2.5 mg PO DAILY 30 Days tab 05/04/21 OLANZapine [ZyPREXA] 15 mg PO HS 30 Days tablet 05/04/21 Prazosin [Minipress] 2 mg PO HS 30 Days cap 05/04/21 Propranolol [Inderal] 20 mg PO BID 30 Days tab 05/04/21 Thiamine [Vitamin B-1] 100 mg PO DAILY 30 Days tab 05/04/21 Venlafaxine HCl ER [Effexor XR] 150 mg PO DAILY 30 Days cap.er.24h 05/04/21 busPIRone HCl [Buspar] 30 mg PO BID 30 Days tab 05/04/21 hydrOXYzine pamoate [Vistaril] 50 mg PO BID PRN 30 Days cap 05/04/21 lamoTRIgine [LaMICtal] 50 mg PO BID 30 Days tab 05/04/21 rOPINIRole HCL [Requip] 0.5 mg PO HS 30 Days tab 05/04/21 Allergies Allergy/AdvReac Type Severity Reaction Status Date / Time lactose Allergy Nausea & Verified 07/08/21 21:15 Vomiting & Diarrhea trazodone AdvReac dizziness Verified 07/08/21 21:15 Review of Systems ROS Statement: Those systems with pertinent positive or pertinent negative responses have been documented in the HPI. Review of Systems: CONST: Denies fever EYES: Denies blurry vision ENT: Denies nasal congestion C/V: Denies Chest pain RESP: Denies shortness of breath GI: Denies abdominal pain : Denies dysuria SKIN: Denies rash. MSK: Denies joint pain. NEURO: Denies headache PSYCH: Denies homicidal ideations/plans/attempts. Denies visual or auditory hallucinations. He endorses suicidal ideations and plan. Denies attempt. ROS Other: All systems not noted in ROS Statement are negative. Past Medical History Past Medical History: Seizure Disorder, Supraventricular Tachycardia (SVT) Additional Past Medical History / Comment(s): SVT with cardiac ablation, lumbar DDD, bulging lumbar disc, seizure per family 08/01/17 and 07/11/17, ETOH abuse, past hx documented cocaine/opiate/benzodiazepine disorder, migraines, sinus problems, past bilateral arm fractures/casted, past broken left ankle and leg/casted, ruptured spleen. History of Any Multi-Drug Resistant Organisms: ESBL Date of last positivie culture/infection: 04/24/21 MDRO Source:: ESBL URINE Past Surgical History: Bariatric Surgery, Cardiac Ablation, Orthopedic Surgery Additional Past Surgical History / Comment(s): gastric sleeve, EP studies, cardiac ablation for SVT, 03/2017 I &D L wrist. Past Anesthesia/Blood Transfusion Reactions: No Reported Reaction Additional Past Anesthesia/Blood Transfusion Reaction / Comment(s): Pt has clausterphobia. Past Psychological History: Anxiety, Bipolar, Depression, Panic Disorder Smoking Status: Current every day smoker Past Alcohol Use History: Occasional Past Drug Use History: Marijuana, Methamphetamine, Opiates, Prescription Drug Abuse - Past Family History Father History Unknown: Yes Family Medical History: COPD, Diabetes Mellitus Mother History Unknown: Yes Family Medical History: Asthma Additional Family Medical History / Comment(s): pt reports mother had cyclic vomiting issues, substance abuse history Sister(s) Family Medical History: Supraventricular Tachycardia (SVT) Additional Family Medical History / Comment(s): Sister had SVT General Exam - General Exam Comments Initial Comments: General: Appears in no acute distress. HEAD: Normal with no signs of head trauma. EYES: PERRLA, EOMI, conjunctiva normal, no discharge. ENT: Hearing grossly intact, normal oropharynx. No neck trauma. No bruising or mabry. RESPIRATORY: Clear breath sounds bilaterally. No wheezes, rales, or rhonchi. C/V: Regular rate and rhythm. S1 and S2 auscultated, no edema, peripheral pulses 2+ and intact throughout ABD: Abd is soft, nontender, nondistended EXT: Normal range of motion, no obvious deformity SKIN: No rashes or lesions observed on exposed skin. NEURO: Alert and oriented 4. No focal sensory strength deficits. Limitations: no limitations Course Vital Signs 07/08/21 17:48 Temperature 97.8 F Pulse Rate 73 Respiratory 18 Rate Blood Pressure 157/96 O2 Sat by Pulse 97 Oximetry Medical Decision Making - Medical Decision Making Based on the patient's presentation and physical exam, I do believe that she requires evaluation by psychiatry. She has suicidal ideations as well as a plan. The remainder of my exam is unremarkable. We will obtain a primary Breathalyzer test for alcohol, which is 0. UDS will also be ordered. UDS is positive for cocaine, marijuana, methadone.She is medically cleared for evaluation by psychiatry at this time. I did place 1:1 const several the patient. EPS evaluate the patient and determined that she meets criteria for inpatient psych admission. Patient will be admitted to inpatient psychiatry at [facility]. Patient was admitted in stable condition. - Lab Data Lab Results 07/08/21 Range/Units 21:10 Urine Opiates Screen Not Detected (NotDetected) Ur Oxycodone Screen Not Detected (NotDetected) Urine Methadone Screen Detected H (NotDetected) Ur Propoxyphene Screen Not Detected (NotDetected) Ur Barbiturates Screen Not Detected (NotDetected) U Tricyclic Antidepress Not Detected (NotDetected) Ur Phencyclidine Scrn Not Detected (NotDetected) Ur Amphetamines Screen Not Detected (NotDetected) U Methamphetamines Scrn Not Detected (NotDetected) U Benzodiazepines Scrn Not Detected (NotDetected) Urine Cocaine Screen Detected H (NotDetected) U Marijuana (THC) Screen Detected H (NotDetected) Disposition Clinical Impression: Suicidal ideations, Psychiatric hospitalisation, Polysubstance abuse Disposition: ADMITTED IP TO THIS HOSP Condition: Stable
[2021-07-08] MEDS: LORazepam 1 MG TAB PO PRN (22:52)
[2021-07-09 06:56] LABS: Basophils % (A) 0 %; Eosinophils # (A) 0.1 k/uL (0-0.7); Eosinophils % (A) 2 %; HCT 39.2 % (34.0-46.0); HGB 12.7 gm/dL (11.4-16.0); Lymphocytes # (A) 1.5 k/uL (1.0-4.8); Lymphocytes % (A) 31 %; MCH 30.7 pg (25.0-35.0); MCHC 32.4 g/dL (31.0-37.0); MCV 94.8 fL (80.0-100.0); Mean Platelet Volume 9.4; Monocytes # (A) 0.2 k/uL (0-1.0); Monocytes % (A) 5 %; Neutrophils % (A) 60 %; Platelet Count 175 k/uL (150-450); RBC 4.14 m/uL (3.80-5.40); RDW 13.3 % (11.5-15.5); WBC 4.9 k/uL (3.8-10.6)
[2021-07-09 07:08] LABS: ALT 38 U/L (4-34); AST 40 U/L (14-36); African American GFR (CKD) >90 (>60 ml/min/1.73 sqM); Albumin 3.9 g/dL (3.5-5.0); Alkaline Phosphatase 77 U/L (38-126); Anion Gap 8 mmol/L; Blood Urea Nitrogen 10 mg/dL (7-17); Calcium 9.3 mg/dL (8.4-10.2); Carbon Dioxide 23 mmol/L (22-30); Chloride 110 mmol/L (98-107); Glucose 85 mg/dL (74-99); Non-African American GFR(CKD) >90 (>60 ml/min/1.73 sqM); Potassium 4.1 mmol/L (3.5-5.1); Sodium 141 mmol/L (137-145); Total Bilirubin 0.8 mg/dL (0.2-1.3); Total Protein 6.6 g/dL (6.3-8.2)
[2021-07-09] MEDS: NICOTINE 14MG/24HR PATCH TRANSDERM SCH (08:08)
[2021-07-09] MEDS: LORazepam 1 MG TAB PO PRN ×3 (08:10→19:59)
[2021-07-09] MEDS: SERTRALINE 100 MG TAB PO SCH (08:34)
[2021-07-09] MEDS: METHADONE 10 MG TAB PO SCH (08:53)
--- NOTE | 2021-07-09 09:43 | P.HP ---
Psychiatric H&P - . H&P Date: 07/09/21 History & Physical: IDENTIFYING DATA: There is a 30-year-old single female known to this unit from prior admissions. She presented to the ED with complaints of increasing depression and suicidal ideation. HISTORY OF PRESENT ILLNESS: She was last discharged on 05/04/2021 with multiple diagnoses including depressive disorder, borderline personality disorder, cocaine use disorder, benzodiazepine use disorder, opiate use disorder and it is therapy, tobacco use of methamphetamine use disorder. She entered the [facility] rehabilitation program on 05/08/2021 as scheduled during that admission. He stated that she completed 21 days in the program and was abstinent from alcohol and drugs for approximately 4 weeks after discharge. She attributed to a relapse to alcohol, cocaine and opiates (including heroin) to stopping most of her psychotropic medications. She claimed that she became confused over the number and frequency of dosing of her psychotropic medications. After she stopped the psychotropic medications and relapsed she experienced increasing guilt and depression. She began ruminating about the overdose of her mother and expressed concerned that if she were to continue she would overdose. She talked about "hiding" her drug and alcohol use from her grandmother and her aunt. She was afraid that if they discovered that she had relapsed she would have to leave her home. She described feelings of depression and thoughts of and suicide. She denied that she had attempted suicide or made plans for suicide. She described feelings of anxiety but is difficult to separate anxiety from peers of abuse or withdrawal. She denied experiencing psychotic symptoms such as hallucinations, paranoia or confusion. PAST PSYCHIATRIC HISTORY: This is her 10th admission since 2016. In addition, she has had several admissions to medicine for overdose or intoxication. She did not follow through with referral to community mental health. She talked about meeting with a keeper helper about a week prior to admission but did not keep a subsequent appointment. PAST MEDICAL HISTORY: She had prior diagnoses of seizure disorder, supraventricular tachycardia and is status post cardiac ablation. ALLERGIES: Lactose, trazodone SUBSTANCE USE HISTORY: She has long history of substance use and substance use problems. Her drug of choice is heroin and she is currently enrolled in a outpatient methadone substitution clinic in [facility] where she receives 140 mg methadone daily. She last dose on the day prior to admission. She does not have take-home privileges. In addition she has history of cocaine use, alcohol use, benzodiazepine use and cannabis use. Her UDS on presentation to the ED was positive for methadone, cocaine and marijuana. Her breath alcohol level was 0. FAMILY PSYCHIATRIC/SUBSTANCE USE HISTORY: Her mother had a history of an opiate use disorder and overdose from fentanyl. She reported that her maternal grandmother and a cousin by suicide. Numerous family members known to have depression or bipolar illness. Her mother had a history depression in her father had history of bipolar illness. She has a sister who also has a substance use disorder. LEGAL HISTORY: She denied current legal problems. She denied that she is on probation, parole or has pending charges. SOCIAL HISTORY: After discharge from the unit in April 2021 she returned to live with her grandmother. She is unemployed and has no stable income. She is living off an insurance pay out following her mother's . She is single and has no children. MENTAL STATUS EXAM: She presented as a casually groomed 31-year-old female who was pleasant on approach. She made eye contact and attended the interview. She had facial piercing but no prominent physical abnormalities. She had a blunted facial expression. She was alert and oriented to person, place and time. She had psychomotor retardation but no abnormal involuntary movements. Gait was slow but steady. Her speech was spontaneous with decreased rate, volume and rhythm. Affect was depressed but reactive. She expressed suicidal ideation and wishes but denied suicidal intent or plan. She denied homicidal ideation. She feels hopeless and helpless particularly with regard to her relapse to alcohol and opiates. She did not express ideas reference, paranoid ideation or delusions. Her thinking was abstract but his associations were coherent, logical goal-directed. She denied hallucinations and did not appear to be responding to internal stimuli. Global impression of intellect is average. She is aware of illness and need for treatment. STRENGTHS: Relatively good physical health, supportive family, stable living, stable income WEAKNESSES: Compliance with mental health treatment, chronic substance abuse issues IMPRESSION: She is a 31-year-old single female readmitted to the psychiatric unit with complaints of increased depression and suicidal ideation in the context of relapse to opiates, cocaine and alcohol. She is well known to the unit from her prior admissions and has a well-established substance use diagnosis. She entered a residential substance abuse treatment following her last discharge, completed the program and was abstinent for about one month after discharge from the program. However, she stopped all her psychotropic medications, did not follow through with outpatient mental health treatment, became depressed and relapsed. She presented as an inpatient basis with combination of sick [facility] and multimodal therapy. PRINCIPLE DIAGNOSIS: Unspecified depressive disorder, rule out major depressive disorder, opiate use disorder and is therapy, alcohol use disorder severe, cocaine use disorder, benzodiazepine use disorder, cannabis use disorder, tobacco use RECOMMENDATION: Admitted voluntarily to the psychiatric unit. Safety precautions. Consult medicine for initial physical exam and medical history. can intake worker to complete initial psychosocial assessment coordinate discharge and aftercare. Continue methadone 140 mg daily. Begin Zoloft 100 mg daily and titrated according to clinical response and tolerance. Consider augmentation strategies monotherapy is ineffective. She would benefit from a referral to [facility] for dual diagnosis treatment. Encourage participation in therapeutic groups and activities. Evaluate clinical status response to treatment daily basis. Allergies Allergy/AdvReac Type Severity Reaction Status Date / Time lactose Allergy Nausea & Verified 07/08/21 21:15 Vomiting & Diarrhea trazodone AdvReac dizziness Verified 07/08/21 21:15 Vital Signs Temp 97.4 F L 07/09/21 06:06 Pulse 81 07/09/21 08:10 Resp 16 07/09/21 06:06 BP 134/81 07/09/21 08:10 Pulse Ox 100 07/08/21 22:20 Intake & Output 07/08/21 07/09/21 07/09/21 18:59 06:59 18:59 Weight 89.811 kg 86.1 kg Laboratory Last Values WBC 4.9 k/uL (3.8-10.6) 07/09/21 06:04 RBC 4.14 m/uL (3.80-5.40) 07/09/21 06:04 Hgb 12.7 gm/dL (11.4-16.0) 07/09/21 06:04 Hct 39.2 % (34.0-46.0) 07/09/21 06:04 MCV 94.8 fL (80.0-100.0) 07/09/21 06:04 MCH 30.7 pg (25.0-35.0) 07/09/21 06:04 MCHC 32.4 g/dL (31.0-37.0) 07/09/21 06:04 RDW 13.3 % (11.5-15.5) 07/09/21 06:04 Plt Count 175 k/uL (150-450) 07/09/21 06:04 MPV 9.4 07/09/21 06:04 Neutrophils % 60 % 07/09/21 06:04 Lymphocytes % 31 % 07/09/21 06:04 Monocytes % 5 % 07/09/21 06:04 Eosinophils % 2 % 07/09/21 06:04 Basophils % 0 % 07/09/21 06:04 Neutrophils # 3.0 k/uL (1.3-7.7) 07/09/21 06:04 Lymphocytes # 1.5 k/uL (1.0-4.8) 07/09/21 06:04 Monocytes # 0.2 k/uL (0-1.0) 07/09/21 06:04 Eosinophils # 0.1 k/uL (0-0.7) 07/09/21 06:04 Basophils # 0.0 k/uL (0-0.2) 07/09/21 06:04 Sodium 141 mmol/L (137-145) 07/09/21 06:04 Potassium 4.1 mmol/L (3.5-5.1) 07/09/21 06:04 Chloride 110 mmol/L (98-107) H 07/09/21 06:04 Carbon Dioxide 23 mmol/L (22-30) 07/09/21 06:04 Anion Gap 8 mmol/L 07/09/21 06:04 BUN 10 mg/dL (7-17) 07/09/21 06:04 Creatinine 0.57 mg/dL (0.52-1.04) 07/09/21 06:04 Est GFR (CKD-EPI)AfAm >90 (>60 ml/min/1.73 sqM) 07/09/21 06:04 Est GFR (CKD-EPI)NonAf >90 (>60 ml/min/1.73 sqM) 07/09/21 06:04 Glucose 85 mg/dL (74-99) 07/09/21 06:04 Calcium 9.3 mg/dL (8.4-10.2) 07/09/21 06:04 Total Bilirubin 0.8 mg/dL (0.2-1.3) 07/09/21 06:04 AST 40 U/L (14-36) H 07/09/21 06:04 ALT 38 U/L (4-34) H 07/09/21 06:04 Alkaline Phosphatase 77 U/L (38-126) 07/09/21 06:04 Total Protein 6.6 g/dL (6.3-8.2) 07/09/21 06:04 Albumin 3.9 g/dL (3.5-5.0) 07/09/21 06:04 Urine Opiates Screen Not Detected (NotDetected) 07/08/21 21:10 Ur Oxycodone Screen Not Detected (NotDetected) 07/08/21 21:10 Urine Methadone Screen Detected (NotDetected) H 07/08/21 21:10 Ur Propoxyphene Screen Not Detected (NotDetected) 07/08/21 21:10 Ur Barbiturates Screen Not Detected (NotDetected) 07/08/21 21:10 U Tricyclic Antidepress Not Detected (NotDetected) 07/08/21 21:10 Ur Phencyclidine Scrn Not Detected (NotDetected) 07/08/21 21:10 Ur Amphetamines Screen Not Detected (NotDetected) 07/08/21 21:10 U Methamphetamines Scrn Not Detected (NotDetected) 07/08/21 21:10 U Benzodiazepines Scrn Not Detected (NotDetected) 07/08/21 21:10 Urine Cocaine Screen Detected (NotDetected) H 07/08/21 21:10 U Marijuana (THC) Screen Detected (NotDetected) H 07/08/21 21:10 07/09/21 09:10
--- NOTE | 2021-07-09 10:49 | CONS ---
CONSULTATION CHIEF COMPLAINT: Major depression and drug addiction. HISTORY OF PRESENT ILLNESS: This is another admission for this 41-year-old white female who has gone through repeated and cyclical issues with depression and drug addiction. She has been a patient in the office for year or two and was stable from time to time. She was on the Suboxone program. However, she would then disappear and start using more drugs, go into rehab, come out, go into halfway, and repeat the cycle. She is a patient at [facility], but does not keep appointments or take her medication. She recently woke up very depressed and stopped all of her medications. She has a sister and both struggle with the same problems. They both did drugs with her mother who about a year ago of a drug overdose. REVIEW OF SYSTEMS: She denies any headaches, problems with vision or hearing, chest pain, shortness of breath, hypertension, heart disease, abdominal pain, nausea, vomiting, hematemesis, melena, hematochezia, jaundice, hepatitis, renal failure, dysuria, frequency, incontinence, diabetes, etc. Past medical history, family history and personal and social histories are all otherwise unremarkable and noncontributory or unchanged. PHYSICAL EXAMINATION: Blood pressure 132/80 with a pulse of 68, respirations of 18 and she is afebrile. In general, she appeared to be well developed, well nourished, in no acute distress. Skin color is normal. Skin is warm, dry. Lymph nodes are not enlarged. Head, ears, eyes, nose, mouth and throat were normal. Neck veins not distended. Thyroid is not enlarged. Chest is clear. Cardiac exam is normal. Abdomen is soft, nontender. Extremities are normal. Neurologically she is intact. She is calm and relaxed and appropriate. IMPRESSION: 1. Major depression. 2. Longstanding history of drug addiction. RECOMMENDATIONS: None at this time. Thank you respectfully. MMODL / IJN: [id number] /
[2021-07-09 12:45] LABS: Chol/HDL Ratio 1.46; Cholesterol 136 mg/dL (0-200); Triglycerides <50.0 mg/dL (0.0-149.0)
[2021-07-09 13:40] LABS: Hemoglobin A1C 5.2 % (4.0-6.0)
[2021-07-10 06:45] VITALS: RESP 18; TEMP 97.7
[2021-07-10] MEDS: SERTRALINE 100 MG TAB PO SCH (08:25)
[2021-07-10] MEDS: METHADONE 10 MG TAB PO SCH (08:26)
[2021-07-10] MEDS: NICOTINE 14MG/24HR PATCH TRANSDERM SCH (08:57)
[2021-07-10] MEDS: LORazepam 1 MG TAB PO PRN ×2 (11:03→20:01)
--- NOTE | 2021-07-10 11:50 | P.PN ---
Progress Note - Text Progress Note Date: 07/10/21 Interval History: Patient was seen wandering the hallways and was directable and agreeable to speak with underwriter solicitation director in the office. The patient reports that she is feeling slightly better since her admission to the hospital. She is currently not reporting any suicidal or homicidal ideation, intention, and/or plan. She does report that her depression is mildly improving since her admission and admits that it was worsening over the past few weeks prior to this admission due to the anniversary of her mother's , her recent relapse into drug use, and her abrupt cessation of her prescribed psychotropic medications. The patient expresses concern regarding her sleep, anxiety, and racing thoughts. She is a tolerating her Zoloft long is not endorsing any significant side effects at this time. She denies any issues regarding her appetite. The patient reports that she was previously on Seroquel which provided some relief in regards to her racing thoughts and her problems sleeping. She is agreeable starting this medication at this time. The patient also reports that she's been experiencing trauma related nightmares. As per review of her last [facility] appointment, the patient was previously prescribed prazosin for PTSD related nightmares. The patient is agreeable to starting this medication again. Mental Status Exam: General Appearance: Patient appears to be stated age is alert, directable, and cooperative. Fair hygiene and grooming. Behavior: Patient is calmly seated without any agitated behavior. Eye contact is appropriate. Psychomotor activity is normal. Speech: Patient's speech is fluent and nonpressured. Mood/Affect: Mood is improving mildly, affect is congruent and constricted. Suicidality/Homicidality: Patient denies having any suicidal or homicidal ideation intent or plan. Perceptions: Patient denies any visual hallucinations and denies any auditory hallucinations Though content/process: There is no evidence of any delusional thought content and thought process is linear and goal-directed. Memory and concentration: AOX3, grossly intact for the purposes of this session Judgment and insight: Improving mildly Vital Signs Temp 97.7 F 07/10/21 06:25 Pulse 54 L 07/10/21 06:25 Resp 18 07/10/21 06:25 BP 120/61 07/10/21 06:25 Pulse Ox 100 07/08/21 22:20 Intake & Output 07/09/21 07/10/21 07/10/21 18:59 06:59 18:59 Weight 85.9 kg Laboratory Results - Last 24 Hours 07/09/21 07/09/21 06:04 06:[address] Glu mg/dL 103 Hemoglobin A1c 5.2 Triglycerides <50.0 Cholesterol 136 LDL Cholesterol, Calc VLDL Cholesterol, Calc HDL Cholesterol 93.0 H Cholesterol/HDL Ratio 1.46 Assessment Major depressive disorder, recurrent, severe Opiate use disorder, on opiate agonist therapy Alcohol use disorder Cocaine use disorder Benzodiazepine use disorder Cannabis use disorder Nicotine dependence Plan: -Patient continues to meet criteria for inpatient psychiatric admission for symptom stabilization and safety. Patient has signed adult voluntary form and medication consent and was placed in patient's chart. -Medications: Continue Zoloft 100 mg by mouth daily for the patient/anxiety Start Seroquel 100 mg by mouth at bedtime for insomnia/mood stabilization/augmentation Start prazosin 1 mg by mouth at bedtime for PTSD related nightmares Start Requip 0.25 mg by mouth at bedtime for restless leg -When necessary Ativan and Haldol for agitation/aggression. -NRT - nicotine patch -SW on board for discharge planning. Encouraged the patient to participate in milieu.
[2021-07-10] MEDS ORDERED: PRAZOSIN 1 MG CAP PO SCH (21:00)
[2021-07-10] MEDS ORDERED: QUEtiapine 100 MG TAB PO SCH (21:00)
[2021-07-11] MEDS: NICOTINE 14MG/24HR PATCH TRANSDERM SCH (08:17)
[2021-07-11] MEDS: METHADONE 10 MG TAB PO SCH (08:18)
[2021-07-11] MEDS: SERTRALINE 100 MG TAB PO SCH (08:18)
[2021-07-11] MEDS: LORazepam 1 MG TAB PO PRN (10:53)
[2021-07-11 10:54] VITALS: BP 133/89; PULSE 112
--- NOTE | 2021-07-11 13:22 | P.DS ---
Providers Date of admission: 07/08/21 21:58 Expected date of discharge: 07/11/21 Attending physician: Ricco Thornton MD Consults: 07/08/21 22:01 Consult Physician Routine Consulting Provider: Tony Connolly Consult Reason/Comments: medical management Do you want consulting provider notified?: Yes Primary care physician: Tony Connolly - Discharge Diagnosis(es) (1) Major depression Status: Acute Priority: High (2) Generalized anxiety disorder Status: Acute Priority: High (3) Methamphetamine abuse Status: Chronic Priority: Medium (4) Nicotine dependence Status: Chronic Priority: Medium (5) Opioid dependence on agonist therapy Status: Chronic Priority: Medium (6) Polysubstance abuse Status: Chronic Priority: Medium Hospital Course: Admission HPI: Initial psychiatric evaluation was covered by Dr. Rebolledo on 07/09/21 who wrote: "There is a 30-year-old single female known to this unit from prior admissions. She presented to the ED with complaints of increasing depression and suicidal ideation. She was last discharged on 05/04/2021 with multiple diagnoses including depressive disorder, borderline personality disorder, cocaine use disorder, benzodiazepine use disorder, opiate use disorder and it is therapy, tobacco use of methamphetamine use disorder. She entered the [facility] on 05/08/2021 as scheduled during that admission. He stated that she completed 21 days in the program and was abstinent from alcohol and drugs for approximately 4 weeks after discharge. She attributed to a relapse to alcohol, cocaine and opiates (including heroin) to stopping most of her psychotropic medications. She claimed that she became confused over the number and frequency of dosing of her psychotropic medications. After she stopped the psychotropic medications and relapsed she experienced increasing guilt and depression. She began ruminating about the overdose of her mother and expressed concerned that if she were to continue she would overdose. She talked about "hiding" her drug and alcohol use from her grandmother and her aunt. She was afraid that if they discovered that she had relapsed she would have to leave her home. She described feelings of depression and thoughts of and suicide. She denied that she had attempted suicide or made plans for suicide. She described feelings of anxiety but is difficult to separate anxiety from peers of abuse or withdrawal. She denied experiencing psychotic symptoms such as hallucinations, paranoia or confusion. This is her 10th admission since 2016. In addition, she has had several admissions to medicine for overdose or intoxication. She did not follow through with referral to [facility]. She talked about meeting with a lens cleaner about a week prior to admission but did not keep a subsequent appointment." Hospital course: Upon admission to the unit patient was initially depressed and suicidal in the context of relapsing to opiates, cocaine and alcohol.. Patient was however directable and agreeable to commence treatment. Patient got along well with other patients on the unit and followed unit protocol. Patient was compliant with the medications and denied any side effects throughout hospital course. Patient was started on Zoloft in her home medication of methadone. Patient spoke of her stressors and engaged in therapy both group and individual. Patient was also seen by medical team for history and physical exam. The patient was also started on Seroquel, prazosin, and Requip for management of the patient's mood stabilization/insomnia/PTSD/restless leg syndrome. Throughout the course of the hospitalization patient gradually improved with regards to mood and sleep as made evident by the patient's improved hygiene and grooming as well as her increased participation in groups. The patient also became more future oriented as the hospitalization progressed. On the day of discharge patient denied any suicidal or homicidal ideations intent or plan denied any auditory or visual hallucinations. Patient endorsed wanting to live for her health and family. The patient denied any access to guns or weapons. Patient denied any paranoia and did not endorse any delusions. Patient does have a significant history of substance abuse however was counseled on abstaining from all substances including alcohol and marijuana. Patient was offered however declined inpatient substance-abuse rehab. Patient was also counseled on the medications and need for regular compliance and was encouraged to follow-up with their outpatient appointment for mental health and also for primary care. Prior to discharge a family meeting will be arranged by social work lecturer to answer any questions and ensure safety upon discharge. Mental status exam: General Appearance: Patient appears to be stated age is alert, pleasant, and cooperative. Patient is in no acute distress and has fair hygiene and grooming. The patient has multiple tattoos. Behavior: Patient is calmly seated without any agitated behavior. Eye contact is appropriate. Psychomotor activity is normal. Speech: Patient's speech is fluent and nonpressured. Mood/Affect: Patient reports their mood is "feeling the best ever felt in a while." Affect is congruent and bright. Suicidality/Homicidality: Patient denies having any suicidal or homicidal ideation intent or plan. Perceptions: Patient denies any auditory or visual hallucinations. Though content/process: There is no evidence of any delusional thought content and thought process is linear and goal-directed. The patient is future oriented. Memory and concentration: AOX3, grossly intact for the purposes of this session. Can spell "WORLD" backwards correctly. Judgment and insight: Improved with guarded prognosis Vital Signs Temp 97.7 F 07/10/21 06:25 Pulse 112 H 07/11/21 10:50 Resp 18 07/10/21 06:25 BP 133/89 07/11/21 10:50 Pulse Ox 100 07/08/21 22:20 Impression: Major depressive disorder, recurrent, severe Opiate use disorder, on opiate agonist therapy Alcohol use disorder Cocaine use disorder Benzodiazepine use disorder Cannabis use disorder Nicotine dependence Plan: -Continue with discharge today as patient has improved and stabilized psychiatrically and is not currently an imminent threat to herself and/or others. Patient will remain at chronically elevated risk for harm to self and/or others due to her impulsivity and polysubstance abuse. -Continue medications: Zoloft 100 mg by mouth daily for depression/anxiety/PTSD Prazosin 1 mg by mouth at bedtime for disability related nightmares Seroquel 100 mg by mouth at bedtime for mood augmentation/stabilization Habitrol patches for nicotine cessation Requip for restless leg syndrome -Patient was counseled on the need for medication compliance and appropriate follow-up at mental health and also primary care for medical issues. Patient verbalized understanding and agreed. -Social work to arrange for and conduct family meeting to ensure safety upon discharge and answer any questions/concerns. Social work also to arrange for patients follow up appointments with [facility] for psychiatric care along with follow up with primary care provider. -Patient counseled on abstaining from recreational drugs and marijuana and alcohol. Was informed/educated on the adverse effects on their physical and mental health. Patient verbally agreed and understood. Patient was offered substance abuse treatment however declined at this time. -Patient was instructed to return to the hospital or seek immediate medical care if their psychiatric or medical symptoms do worsen or reoccur. -Psychoeducation and supportive therapy provided to patient. Risks and benefits of pharmacological treatment versus the risks and benefits of nontreatment weight and discussed. Informed consent discussion held. Common side effects of psychotropics discussed such as, but not limited to headache, GI disturbance, sexual dysfunction, movement disorders, sedation, and orthostatic hypotension. Life threatening and blackbox warnings of prescribed medications also discussed. Potential risks of operating a vehicle or heavy machinery discussed with patient at length. Advised on importance of compliance and a reliable and responsible manner. Patient advised to review FDA consumer labeling of all medications prior to taking. Patient verbalized understanding of potential risks, and agrees with current treatment plan. Patient advised to medically contact physician/emergency personnel if any acute changes in condition occur. Allergies Allergy/AdvReac Type Severity Reaction Status Date / Time lactose Allergy Nausea & Verified 07/08/21 21:15 Vomiting & Diarrhea trazodone AdvReac dizziness Verified 07/08/21 21:15 Laboratory Results WBC 4.9 k/uL (3.8-10.6) 07/09/21 06:04 RBC 4.14 m/uL (3.80-5.40) 07/09/21 06:04 Hgb 12.7 gm/dL (11.4-16.0) 07/09/21 06:04 Hct 39.2 % (34.0-46.0) 07/09/21 06:04 MCV 94.8 fL (80.0-100.0) 07/09/21 06:04 MCH 30.7 pg (25.0-35.0) 07/09/21 06:04 MCHC 32.4 g/dL (31.0-37.0) 07/09/21 06:04 RDW 13.3 % (11.5-15.5) 07/09/21 06:04 Plt Count 175 k/uL (150-450) 07/09/21 06:04 MPV 9.4 07/09/21 06:04 Neutrophils % 60 % 07/09/21 06:04 Lymphocytes % 31 % 07/09/21 06:04 Monocytes % 5 % 07/09/21 06:04 Eosinophils % 2 % 07/09/21 06:04 Basophils % 0 % 07/09/21 06:04 Neutrophils # 3.0 k/uL (1.3-7.7) 07/09/21 06:04 Lymphocytes # 1.5 k/uL (1.0-4.8) 07/09/21 06:04 Monocytes # 0.2 k/uL (0-1.0) 07/09/21 06:04 Eosinophils # 0.1 k/uL (0-0.7) 07/09/21 06:04 Basophils # 0.0 k/uL (0-0.2) 07/09/21 06:04 Sodium 141 mmol/L (137-145) 07/09/21 06:04 Potassium 4.1 mmol/L (3.5-5.1) 07/09/21 06:04 Chloride 110 mmol/L (98-107) H 07/09/21 06:04 Carbon Dioxide 23 mmol/L (22-30) 07/09/21 06:04 Anion Gap 8 mmol/L 07/09/21 06:04 BUN 10 mg/dL (7-17) 07/09/21 06:04 Creatinine 0.57 mg/dL (0.52-1.04) 07/09/21 06:04 Est GFR (CKD-EPI)AfAm >90 (>60 ml/min/1.73 sqM) 07/09/21 06:04 Est GFR (CKD-EPI)NonAf >90 (>60 ml/min/1.73 sqM) 07/09/21 06:04 Glucose 85 mg/dL (74-99) 07/09/21 06:[address] Glu mg/dL 103 07/09/21 06:04 Hemoglobin A1c 5.2 % (4.0-6.0) 07/09/21 06:04 Calcium 9.3 mg/dL (8.4-10.2) 07/09/21 06:04 Total Bilirubin 0.8 mg/dL (0.2-1.3) 07/09/21 06:04 AST 40 U/L (14-36) H 07/09/21 06:04 ALT 38 U/L (4-34) H 07/09/21 06:04 Alkaline Phosphatase 77 U/L (38-126) 07/09/21 06:04 Total Protein 6.6 g/dL (6.3-8.2) 07/09/21 06:04 Albumin 3.9 g/dL (3.5-5.0) 07/09/21 06:04 Triglycerides <50.0 mg/dL (0.0-149.0) 07/09/21 06:04 Cholesterol 136 mg/dL (0-200) 07/09/21 06:04 LDL Cholesterol, Calc mg/dL (0.0-131.0) 07/09/21 06:04 VLDL Cholesterol, Calc mg/dL (5.00-40.00) 07/09/21 06:04 HDL Cholesterol 93.0 mg/dL (40.0-60.0) H 07/09/21 06:04 Cholesterol/HDL Ratio 1.46 07/09/21 06:04 Urine Opiates Screen Not Detected (NotDetected) 07/08/21 21:10 Ur Oxycodone Screen Not Detected (NotDetected) 07/08/21 21:10 Urine Methadone Screen Detected (NotDetected) H 07/08/21 21:10 Ur Propoxyphene Screen Not Detected (NotDetected) 07/08/21 21:10 Ur Barbiturates Screen Not Detected (NotDetected) 07/08/21 21:10 U Tricyclic Antidepress Not Detected (NotDetected) 07/08/21 21:10 Ur Phencyclidine Scrn Not Detected (NotDetected) 07/08/21 21:10 Ur Amphetamines Screen Not Detected (NotDetected) 07/08/21 21:10 U Methamphetamines Scrn Not Detected (NotDetected) 07/08/21 21:10 U Benzodiazepines Scrn Not Detected (NotDetected) 07/08/21 21:10 Urine Cocaine Screen Detected (NotDetected) H 07/08/21 21:10 U Marijuana (THC) Screen Detected (NotDetected) H 07/08/21 21:10 Patient Condition at Discharge: Stable Plan - Discharge Summary Discharge Rx Participant: No New Discharge Prescriptions: New Nicotine 14Mg/24Hr Patch [Habitrol] 1 patch TRANSDERM DAILY 30 Days patch Prazosin [Minipress] 1 mg PO HS 30 Days cap rOPINIRole HCL [Requip] 0.25 mg PO HS 30 Days tab QUEtiapine [SEROquel] 100 mg PO HS 30 Days tab Sertraline [Zoloft] 100 mg PO DAILY 30 Days tab Continue Methadone HCl [Methadone Intensol] 140 mg PO DAILY Cyanocobalamin [Vitamin B-12] 500 mcg PO DAILY 30 Days tab Folic Acid 4 mg PO DAILY 30 Days tab Thiamine [Vitamin B-1] 100 mg PO DAILY 30 Days tab Multivitamins, Thera [Multivitamin (formulary)] 1 tab PO DAILY Discontinued hydrOXYzine pamoate [Vistaril] 50 mg PO BID PRN 30 Days cap PRN Reason: Anxiety rOPINIRole HCL [Requip] 0.5 mg PO HS 30 Days tab lamoTRIgine [LaMICtal] 50 mg PO BID 30 Days tab busPIRone HCl [Buspar] 30 mg PO BID 30 Days tab Venlafaxine HCl ER [Effexor XR] 150 mg PO DAILY 30 Days cap.er.24h Propranolol [Inderal] 20 mg PO BID 30 Days tab Prazosin [Minipress] 2 mg PO HS 30 Days cap OLANZapine [ZyPREXA] 2.5 mg PO DAILY 30 Days tab OLANZapine [ZyPREXA] 15 mg PO HS 30 Days tablet Nicotine 14Mg/24Hr Patch [Habitrol] 1 patch TRANSDERM DAILY PRN PRN Reason: Nicotine Cravings Sennosides-Docusate Sodium [Senokot-S] 1 tab PO BID Discharge Medication List Methadone HCl [Methadone Intensol] 140 mg PO DAILY 03/22/21 [History] Cyanocobalamin [Vitamin B-12] 500 mcg PO DAILY 30 Days tab 05/04/21 [Rx] Folic Acid 4 mg PO DAILY 30 Days tab 05/04/21 [Rx] Thiamine [Vitamin B-1] 100 mg PO DAILY 30 Days tab 05/04/21 [Rx] Multivitamins, Thera [Multivitamin (formulary)] 1 tab PO DAILY 07/08/21 [History] Nicotine 14Mg/24Hr Patch [Habitrol] 1 patch TRANSDERM DAILY 30 Days patch 07/11/21 [Rx] Prazosin [Minipress] 1 mg PO HS 30 Days cap 07/11/21 [Rx] QUEtiapine [SEROquel] 100 mg PO HS 30 Days tab 07/11/21 [Rx] Sertraline [Zoloft] 100 mg PO DAILY 30 Days tab 07/11/21 [Rx] rOPINIRole HCL [Requip] 0.25 mg PO HS 30 Days tab 07/11/21 [Rx] Follow up Appointment(s)/Referral(s): Tony Connolly MD [Primary Care Provider] - 1 Week [facility] [NON-STAFF] - 07/13/21 1:00 pm (with Susanne 07/13/21 at [facility] 3pm with Gaby Jameson) Patient Instructions/Handouts: How to Stop Smoking (DC), Depression (DC), Polysubstance Abuse (ED) Activity/Diet/Wound Care/Special Instructions: Activity and diet as tolerated. Avoid the use of street drugs and alcohol. Take all medications as prescribed. When you are in need of refills on your medications please contact your medical provider and/or outpatient psychiatrist to have this done. Please go to scheduled outpatient appointment for aftercare treatment. If symptoms return or become worse, call the crisis line at and/or go to the nearest emergency room for evaluation. Discharge Disposition: HOME SELF-CARE
== END 2021-07-11 12:00 | disposition home or self-care (01) | DRG 885 ==
LOC: EC 17:29 → 3MHU 21:58
PROVIDERS: ADMIT Psychiatry & Neurology Psychiatry; ATTEND Psychiatry & Neurology Psychiatry
DX: F33.2 Major depressive disorder, recurrent severe without psychotic features (principal); F11.20 Opioid dependence, uncomplicated; F41.0 Panic disorder [episodic paroxysmal anxiety]; F41.1 Generalized anxiety disorder; F43.10 Post-traumatic stress disorder, unspecified; F60.3 Borderline personality disorder; G25.81 Restless legs syndrome; G40.909 Epilepsy, unspecified, not intractable, without status epilepticus; G47.00 Insomnia, unspecified; Z56.0 Unemployment, unspecified; F17.210 Nicotine dependence, cigarettes, uncomplicated; F06.4 Anxiety disorder due to known physiological condition; F10.10 Alcohol abuse, uncomplicated; F12.10 Cannabis abuse, uncomplicated; F13.10 Sedative, hypnotic or anxiolytic abuse, uncomplicated; F14.10 Cocaine abuse, uncomplicated; F15.10 Other stimulant abuse, uncomplicated; Z79.899 Other long term (current) drug therapy; Z81.8 Family history of other mental and behavioral disorders; Z82.5 Family history of asthma and other chronic lower respiratory diseases; Z83.3 Family history of diabetes mellitus; Z91.14 Patient's other noncompliance with medication regimen; Z81.3 Family history of other psychoactive substance abuse and dependence
CPT/HCPCS: 80053; 80061; 80306; 82075; 83036; 85025; 99285

== ENCOUNTER 2021-10-30 12:02 | Emergency (ER) | payer OTHER ==
[2021-10-30] MEDS ORDERED: LIDOCAINE-PRILOCAINE 2.5-2.5% CREAM 5 GM TUBE TOPICAL STA (12:26)
--- NOTE | 2021-10-30 12:30 | ED ---
General Adult HPI - General Chief complaint: Skin/Abscess/Foreign Body Stated complaint: Cyst on left hand Time Seen by Provider: 10/30/21 12:25 Source: patient, RN notes reviewed, old records reviewed Mode of arrival: ambulatory Limitations: no limitations - History of Present Illness Initial comments: 31-year-old female presents to the emergency room with left hand swelling and tenderness. Patient states that it started off as a small bump that has progressed over the past few days after picking at it. States now larger area of redness and tenderness. She denies any fevers, nausea vomiting or diarrhea. She denies any other lesions. She denies any IV drug use. She does state that she smokes daily. She does have a history of depression and polysubstance abuse. Location: left, upper extremity (hand) Severity scale (1-10): 10 Quality: constant Consistency: constant Improves with: none Worsens with: other (touch) Associated Symptoms: denies other symptoms Treatments Prior to Arrival: none - Related Data Home Medications Medication Instructions Recorded Confirmed Methadone HCl [Methadone Intensol] 140 mg PO DAILY 03/22/21 07/08/21 Multivitamins, Thera [Multivitamin 1 tab PO DAILY 07/08/21 07/08/21 (formulary)] Previous Rx's Medication Instructions Recorded Cyanocobalamin [Vitamin B-12] 500 mcg PO DAILY 30 Days tab 05/04/21 Folic Acid 4 mg PO DAILY 30 Days tab 05/04/21 Thiamine [Vitamin B-1] 100 mg PO DAILY 30 Days tab 05/04/21 Nicotine 14Mg/24Hr Patch [Habitrol] 1 patch TRANSDERM DAILY 30 Days 07/11/21 patch Prazosin [Minipress] 1 mg PO HS 30 Days cap 07/11/21 QUEtiapine [SEROquel] 100 mg PO HS 30 Days tab 07/11/21 Sertraline [Zoloft] 100 mg PO DAILY 30 Days tab 07/11/21 rOPINIRole HCL [Requip] 0.25 mg PO HS 30 Days tab 07/11/21 Cephalexin [Keflex] 500 mg PO Q6HR 7 Days #28 cap 10/30/21 Sulfamethox-Tmp 800-160Mg [Bactrim 1 each PO Q12HR 7 Days #14 tab 10/30/21 Ds] Allergies Allergy/AdvReac Type Severity Reaction Status Date / Time lactose Allergy Nausea & Verified 10/30/21 12:07 Vomiting & Diarrhea trazodone AdvReac dizziness Verified 10/30/21 12:07 Review of Systems ROS Statement: Those systems with pertinent positive or pertinent negative responses have been documented in the HPI. ROS Other: All systems not noted in ROS Statement are negative. Past Medical History Past Medical History: Seizure Disorder, Supraventricular Tachycardia (SVT) Additional Past Medical History / Comment(s): SVT with cardiac ablation, lumbar DDD, bulging lumbar disc, seizure per family 08/01/17 and 07/11/17, ETOH abuse, past hx documented cocaine/opiate/benzodiazepine disorder, migraines, sinus problems, past bilateral arm fractures/casted, past broken left ankle and leg/casted, ruptured spleen. History of Any Multi-Drug Resistant Organisms: ESBL Date of last positivie culture/infection: 04/24/21 MDRO Source:: ESBL URINE Past Surgical History: Bariatric Surgery, Cardiac Ablation, Orthopedic Surgery Additional Past Surgical History / Comment(s): gastric sleeve, EP studies, cardiac ablation for SVT, 03/2017 I &D L wrist. Past Anesthesia/Blood Transfusion Reactions: No Reported Reaction Additional Past Anesthesia/Blood Transfusion Reaction / Comment(s): Pt has clausterphobia. Past Psychological History: Anxiety, Bipolar, Depression, Panic Disorder Smoking Status: Current every day smoker Past Alcohol Use History: Occasional Past Drug Use History: Marijuana, Methamphetamine, Opiates, Prescription Drug Abuse - Past Family History Father History Unknown: Yes Family Medical History: COPD, Diabetes Mellitus Mother History Unknown: Yes Family Medical History: Asthma Additional Family Medical History / Comment(s): pt reports mother had cyclic vomiting issues, substance abuse history Sister(s) Family Medical History: Supraventricular Tachycardia (SVT) Additional Family Medical History / Comment(s): Sister had SVT General Exam Limitations: no limitations General appearance: alert, in no apparent distress Head exam: Present: atraumatic, normocephalic, normal inspection Eye exam: Present: normal appearance, EOMI ENT exam: Present: normal exam, normal oropharynx, mucous membranes moist Respiratory exam: Present: normal lung sounds bilaterally. Absent: respiratory distress, wheezes, rales, rhonchi, stridor, chest wall tenderness, accessory muscle use, decreased breath sounds Cardiovascular Exam: Present: tachycardia, normal heart sounds. Absent: JVD Neurological exam: Present: alert, oriented X3 Psychiatric exam: Present: normal affect, normal mood Skin exam: Present: warm, erythema (Left hand approximately 5 cm x 6 cm dorsal surface). Absent: cyanosis, diaphoretic Course Vital Signs 10/30/21 10/30/21 12:05 13:17 Temperature 97.5 F L 98.9 F Pulse Rate 107 H 106 H Respiratory 16 20 Rate Blood Pressure 151/105 136/77 O2 Sat by Pulse 100 100 Oximetry Procedures - Incision & Drainage Consent Obtained: verbal consent Indication: abscess Site: hand (left) Anesthetic Used: lidocaine 1% (EMLA) I&D Cleaning Method: Alcohol Wipe Sterile Field Used?: Yes Scalpel Used: #11 Needle Aspiration Performed?: No Irrigation Performed?: No I&D Drainage Obtained: Pus, Blood Culture Obtained?: Yes Patient Tolerated Procedure: well Medical Decision Making - Medical Decision Making 31-year-old female presents to the emergency room with left hand swelling over the past several days. She states it is getting increasingly red and tender. She denies any fevers, nausea vomiting or diarrhea. She did admit to using IV heroin at that site recently. She states that she has experienced an abscess in the same hand in the past and had to have surgery. Incision and drainage was performed and a large amount of purulent bloody drainage was expressed. Culture was sent. Patient was prescribed Bactrim and Keflex and was given Diflucan at her request stating she gets yeast infections with antibiotics. She was instructed to follow-up with her primary care doctor this week return to the emergency room with any new or worsening symptoms including increased pain, redness, or swelling. Disposition Clinical Impression: Cellulitis, Abscess Disposition: HOME SELF-CARE Instructions (If sedation given, give patient instructions): Cellulitis (ED), Abscess Incision and Drainage (ED) Additional Instructions: Take antibiotics as prescribed and return to the emergency room with any new or worsening symptoms. Follow-up with the primary care doctor this week. Prescriptions: Sulfamethox-Tmp 800-160Mg [Bactrim Ds] 1 each PO Q12HR 7 Days #14 tab Cephalexin [Keflex] 500 mg PO Q6HR 7 Days #28 cap Is patient prescribed a controlled substance at d/c from ED?: No Referrals: Tony Connolly MD [Primary Care Provider] - 1-2 days Time of Disposition: 13:13
[2021-10-30] MEDS ORDERED: IBUPROFEN 600 MG TAB PO STA (12:32)
[2021-10-30] MEDS ORDERED: LIDOCAINE 1% INJ 10MG/ML (20 ML MDV) SQ ONE (12:34)
[2021-10-30] MEDS ORDERED: CEPHALEXIN 500 MG CAP PO STA (12:40)
[2021-10-30] MEDS ORDERED: SULFAMETHOX-TMP 800-160MG 1 EACH TAB PO STA (12:40)
[2021-10-30] MEDS ORDERED: FLUCONAZOLE 150 MG TAB PO STA (13:11)
[2021-10-30 13:18] VITALS: BP 136/77; PULSE 106; RESP 20; TEMP 98.9
== END 2021-10-30 13:44 | disposition home or self-care (01) ==
LOC: EC 12:02
DX: L03.114 Cellulitis of left upper limb (principal); L02.512 Cutaneous abscess of left hand; F17.200 Nicotine dependence, unspecified, uncomplicated; G40.909 Epilepsy, unspecified, not intractable, without status epilepticus; Z88.8 Allergy status to other drugs, medicaments and biological substances; Z91.011 Allergy to milk products; Z79.899 Other long term (current) drug therapy
CPT/HCPCS: 87070; 87205; 87077; 87186; 99283; 10060; J2001

== ENCOUNTER 2022-01-02 01:31 | Observation (INO) | payer OTHER ==
[2022-01-02] MEDS ORDERED: SODIUM CHLORIDE 0.9% 1,000 ML IV STA (02:03)
[2022-01-02] MEDS ORDERED: LORazepam 2 MG/ML INJ IV STA (02:04)
[2022-01-02 02:56] LABS: Basophils % (A) 1 %; Eosinophils # (A) 0.1 k/uL (0-0.7); Eosinophils % (A) 1 %; HCT 44.6 % (34.0-46.0); Lymphocytes # (A) 1.8 k/uL (1.0-4.8); Lymphocytes % (A) 32 %; MCHC 33.7 g/dL (31.0-37.0); MCV 92.1 fL (80.0-100.0); Mean Platelet Volume 8.7; Monocytes # (A) 0.3 k/uL (0-1.0); Monocytes % (A) 5 %; Neutrophils # (A) 3.3 k/uL (1.3-7.7); Neutrophils % (A) 58 %; Platelet Count 224 k/uL (150-450); RBC 4.85 m/uL (3.80-5.40); RDW 13.8 % (11.5-15.5); WBC 5.7 k/uL (3.8-10.6)
[2022-01-02 03:23] LABS: ALT 26 U/L (4-34); AST 46 U/L (14-36); Acetaminophen <10.0 ug/mL; African American GFR (CKD) >90 (>60 ml/min/1.73 sqM); Albumin 4.6 g/dL (3.5-5.0); Alkaline Phosphatase 75 U/L (38-126); Anion Gap 12 mmol/L; Blood Urea Nitrogen 8 mg/dL (7-17); Calcium 9.1 mg/dL (8.4-10.2); Carbon Dioxide 22 mmol/L (22-30); Chloride 110 mmol/L (98-107); Glucose 108 mg/dL (74-99); Non-African American GFR(CKD) >90 (>60 ml/min/1.73 sqM); Salicylate <1.0 mg/dL; Sodium 144 mmol/L (137-145); Total Bilirubin 0.5 mg/dL (0.2-1.3); Total Protein 8.3 g/dL (6.3-8.2)
[2022-01-02 03:47] LABS: Alcohol 297 mg/dL
--- NOTE | 2022-01-02 03:57 | ED ---
Overdose HPI - General Chief Complaint: Overdose Stated Complaint: Overdose Time Seen by Provider: 01/02/22 01:49 Source: EMS Mode of arrival: EMS Limitations: altered mental status - History of Present Illness Initial Comments: This patient is a 31-year-old woman brought here by ambulance to be evaluated for suspected overdose. Patient was seen and public behaving bizarrely. On forced been called EMS who brings patient to have evaluation. Patient on the scene reportedly admitted to using a number of substances and also to reportedly huffing paint. When I interview the patient she denies trauma. No pain. History is otherwise limited due to suspected intoxication. MD Complaint: other -: unknown - Related Data Home Medications Medication Instructions Recorded Confirmed Methadone HCl [Methadone Intensol] 140 mg PO DAILY 03/22/21 07/08/21 Multivitamins, Thera [Multivitamin 1 tab PO DAILY 07/08/21 07/08/21 (formulary)] Previous Rx's Medication Instructions Recorded Cyanocobalamin [Vitamin B-12] 500 mcg PO DAILY 30 Days tab 05/04/21 Folic Acid 4 mg PO DAILY 30 Days tab 05/04/21 Thiamine [Vitamin B-1] 100 mg PO DAILY 30 Days tab 05/04/21 Nicotine 14Mg/24Hr Patch [Habitrol] 1 patch TRANSDERM DAILY 30 Days 07/11/21 patch Prazosin [Minipress] 1 mg PO HS 30 Days cap 07/11/21 QUEtiapine [SEROquel] 100 mg PO HS 30 Days tab 07/11/21 Sertraline [Zoloft] 100 mg PO DAILY 30 Days tab 07/11/21 rOPINIRole HCL [Requip] 0.25 mg PO HS 30 Days tab 07/11/21 Cephalexin [Keflex] 500 mg PO Q6HR 7 Days #28 cap 10/30/21 Sulfamethox-Tmp 800-160Mg [Bactrim 1 each PO Q12HR 7 Days #14 tab 10/30/21 Ds] Allergies Allergy/AdvReac Type Severity Reaction Status Date / Time lactose Allergy Nausea & Verified 01/02/22 01:33 Vomiting & Diarrhea trazodone AdvReac dizziness Verified 01/02/22 01:33 Review of Systems ROS Statement: Those systems with pertinent positive or pertinent negative responses have been documented in the HPI. ROS Other: All systems not noted in ROS Statement are negative. Limitations: ROS unobtainable due to patients medical condition Cardiovascular: Denies: chest pain Gastrointestinal: Denies: abdominal pain Musculoskeletal: Denies: back pain Neurological: Denies: headache Past Medical History Past Medical History: Seizure Disorder, Supraventricular Tachycardia (SVT) Additional Past Medical History / Comment(s): SVT with cardiac ablation, lumbar DDD, bulging lumbar disc, seizure per family 08/01/17 and 07/11/17, ETOH abuse, past hx documented cocaine/opiate/benzodiazepine disorder, migraines, sinus problems, past bilateral arm fractures/casted, past broken left ankle and leg/casted, ruptured spleen. History of Any Multi-Drug Resistant Organisms: ESBL Date of last positivie culture/infection: 04/24/21 MDRO Source:: ESBL URINE Past Surgical History: Bariatric Surgery, Cardiac Ablation, Orthopedic Surgery Additional Past Surgical History / Comment(s): gastric sleeve, EP studies, cardiac ablation for SVT, 03/2017 I &D L wrist. Past Anesthesia/Blood Transfusion Reactions: No Reported Reaction Additional Past Anesthesia/Blood Transfusion Reaction / Comment(s): Pt has clausterphobia. Past Psychological History: Anxiety, Bipolar, Depression, Panic Disorder Smoking Status: Current every day smoker Past Alcohol Use History: Occasional Past Drug Use History: Marijuana, Methamphetamine, Opiates, Prescription Drug Abuse - Past Family History Father History Unknown: Yes Family Medical History: COPD, Diabetes Mellitus Mother History Unknown: Yes Family Medical History: Asthma Additional Family Medical History / Comment(s): pt reports mother had cyclic vomiting issues, substance abuse history Sister(s) Family Medical History: Supraventricular Tachycardia (SVT) Additional Family Medical History / Comment(s): Sister had SVT General Exam Limitations: no limitations General appearance: appears intoxicated Head exam: Present: atraumatic, normocephalic Eye exam: Present: normal appearance. Absent: scleral icterus, conjunctival injection ENT exam: Present: mucous membranes dry Neck exam: Present: normal inspection. Absent: tenderness, meningismus, lymphadenopathy, thyromegaly Respiratory exam: Present: normal lung sounds bilaterally. Absent: respiratory distress, wheezes, rales, rhonchi, stridor Cardiovascular Exam: Present: regular rate, normal rhythm, normal heart sounds. Absent: systolic murmur, diastolic murmur, rubs, gallop GI/Abdominal exam: Present: soft. Absent: distended, tenderness, guarding, rebound, rigid Extremities exam: Present: normal inspection, normal capillary refill. Absent: pedal edema, calf tenderness Back exam: Present: normal inspection. Absent: vertebral tenderness Neurological exam: Present: altered. Absent: motor sensory deficit Skin exam: Present: warm, dry, intact, normal color. Absent: rash Course Vital Signs 01/02/22 01/02/22 01/02/22 01:34 04:00 06:12 Temperature 98.3 F Pulse Rate 91 92 84 Respiratory 18 16 16 Rate Blood Pressure 124/59 123/76 116/79 O2 Sat by Pulse 98 97 98 Oximetry Medical Decision Making - Lab Data Result diagrams: 01/02/22 02:43 01/02/22 02:43 Lab Results 01/02/22 01/02/22 01/02/22 Range/Units 02:43 02:43 02:43 WBC 5.7 (3.8-10.6) k/uL RBC 4.85 (3.80-5.40) m/uL Hgb 15.0 (11.4-16.0) gm/dL Hct 44.6 (34.0-46.0) % MCV 92.1 (80.0-100.0) fL MCH 31.0 (25.0-35.0) pg MCHC 33.7 (31.0-37.0) g/dL RDW 13.8 (11.5-15.5) % Plt Count 224 (150-450) k/uL MPV 8.7 Neutrophils % 58 % Lymphocytes % 32 % Monocytes % 5 % Eosinophils % 1 % Basophils % 1 % Neutrophils # 3.3 (1.3-7.7) k/uL Lymphocytes # 1.8 (1.0-4.8) k/uL Monocytes # 0.3 (0-1.0) k/uL Eosinophils # 0.1 (0-0.7) k/uL Basophils # 0.0 (0-0.2) k/uL Sodium 144 (137-145) mmol/L Potassium 4.0 (3.5-5.1) mmol/L Chloride 110 H (98-107) mmol/L Carbon Dioxide 22 (22-30) mmol/L Anion Gap 12 mmol/L BUN 8 (7-17) mg/dL Creatinine 0.48 L (0.52-1.04) mg/dL Est GFR (CKD-EPI)AfAm >90 (>60 ml/min/1.73 sqM) Est GFR (CKD-EPI)NonAf >90 (>60 ml/min/1.73 sqM) Glucose 108 H (74-99) mg/dL Lactic Ac Sepsis Rflx Plasma Lactic Acid Wilver 2.5 H* (0.7-2.0) mmol/L Calcium 9.1 (8.4-10.2) mg/dL Total Bilirubin 0.5 (0.2-1.3) mg/dL AST 46 H (14-36) U/L ALT 26 (4-34) U/L Alkaline Phosphatase 75 (38-126) U/L Total Protein 8.3 H (6.3-8.2) g/dL Albumin 4.6 (3.5-5.0) g/dL Salicylates <1.0 mg/dL Acetaminophen <10.0 ug/mL Serum Alcohol 297 H* mg/dL 01/02/22 Range/Units 03:46 WBC (3.8-10.6) k/uL RBC (3.80-5.40) m/uL Hgb (11.4-16.0) gm/dL Hct (34.0-46.0) % MCV (80.0-100.0) fL MCH (25.0-35.0) pg MCHC (31.0-37.0) g/dL RDW (11.5-15.5) % Plt Count (150-450) k/uL MPV Neutrophils % % Lymphocytes % % Monocytes % % Eosinophils % % Basophils % % Neutrophils # (1.3-7.7) k/uL Lymphocytes # (1.0-4.8) k/uL Monocytes # (0-1.0) k/uL Eosinophils # (0-0.7) k/uL Basophils # (0-0.2) k/uL Sodium (137-145) mmol/L Potassium (3.5-5.1) mmol/L Chloride (98-107) mmol/L Carbon Dioxide (22-30) mmol/L Anion Gap mmol/L BUN (7-17) mg/dL Creatinine (0.52-1.04) mg/dL Est GFR (CKD-EPI)AfAm (>60 ml/min/1.73 sqM) Est GFR (CKD-EPI)NonAf (>60 ml/min/1.73 sqM) Glucose (74-99) mg/dL Lactic Ac Sepsis Rflx Y Plasma Lactic Acid Wilver (0.7-2.0) mmol/L Calcium (8.4-10.2) mg/dL Total Bilirubin (0.2-1.3) mg/dL AST (14-36) U/L ALT (4-34) U/L Alkaline Phosphatase (38-126) U/L Total Protein (6.3-8.2) g/dL Albumin (3.5-5.0) g/dL Salicylates mg/dL Acetaminophen ug/mL Serum Alcohol mg/dL - EKG Data -: EKG Interpreted by Me EKG shows normal: sinus rhythm, axis (Normal), intervals (Normal), QRS complexes (Normal), ST-T waves (Normal) Rate: normal (Rate 83 bpm) Interpretation: normal EKG Disposition Clinical Impression: Polysubstance abuse, Alcohol use disorder Disposition: ADMITTED IP TO THIS HOSP Condition: Fair Referrals: Tony Connolly MD [Primary Care Provider] - 1-2 days
[2022-01-02] MEDS ORDERED: NALOXONE 0.4 MG/ML 1 ML VIAL IV PRN (06:22)
[2022-01-02] MEDS: SODIUM CHLORIDE 0.9% 1,000 ML IV SCH ×2 (07:32→23:03)
[2022-01-02] MEDS: LORazepam 2 MG/ML INJ IV PRN ×4 (11:23→20:15)
[2022-01-02] MEDS: PANTOPRAZOLE 40 MG TABLET PO SCH (11:23)
[2022-01-02 12:43] LABS: Amphetamine Screen,Urine Detected (NotDetected); Barbiturate Screen,Urine Not Detected (NotDetected); Benzodiazepines Screen,Urine Detected (NotDetected); Cocaine Screen,Urine Not Detected (NotDetected); Methadone Screen, Urine Not Detected (NotDetected); Opiate Screen,Urine Not Detected (NotDetected); Oxycodone Screen, Urine Not Detected (NotDetected); Phencyclidine Screen,Urine Not Detected (NotDetected); Tricyclic Antidepressant,Urine Not Detected (NotDetected); Urn Cannabinoid Scrn Detected (NotDetected)
--- NOTE | 2022-01-02 14:16 | P.CN ---
Psychiatric Consult - . Consult date: 01/02/22 Consult:: 01/02/22 14:15 IDENTIFYING DATA: This patient is a 31-year-old single female with significant history of polysubstance abuse present to the hospital for suspected overdose. HISTORY OF PRESENT ILLNESS: The patient presented to the hospital on 01/02/2022, brought in by an ambulance for bizarre public behavior. The patient was brought in by EMS services. The patient admitted to using a number of substances as well as "huffing paint." Psychiatry has been consulted for "overdose." Upon evaluation in the emergency room, the patient is not endorsing any suicidal or homicidal ideation, intention, and/or plan. She reports that she wants to live in order to make her mother proud. She is reporting no auditory or visual hallucinations. She is denying any paranoia or other delusions. The patient is currently alert and oriented in all spheres. Patient expressed that she's been feeling increasingly depressed and has been using more substances as of late. She does admit that she has not been following up with her outpatient appointments for mental health or in adherent with any of the medications that was prescribed to her when she was last discharged from the psychiatric unit this past June. The patient was also asked if she has been given some thought into going to substance abuse rehabilitation. The patient expresses that she "wants to quit but also does not want to quit any drugs." The patient is currently pre-contemplative at this time. She is however not desiring any inpatient psychiatric admission. PAST PSYCHIATRIC HISTORY: The patient has a history of depression, anxiety, and polysubstance abuse including methamphetamine use disorder, opiate use disorder, and other psychoactive substance use disorders. The patient was discharged on a regimen of Zoloft, prazosin, and Seroquel in June 2021 however has been nonadherent with her prescribed medications. The patient has had at least 10 psychiatric inpatient admissions since 2015. The patient is supposed to follow-up with community mental health however has been nonadherent with treatment. PAST MEDICAL HISTORY: Past Medical History: Seizure Disorder, Supraventricular Tachycardia (SVT) Additional Past Medical History / Comment(s): SVT with cardiac ablation, lumbar DDD, bulging lumbar disc, seizure per family 08/01/17 and 07/11/17, ETOH abuse, past hx documented cocaine/opiate/benzodiazepine disorder, migraines, sinus problems, past bilateral arm fractures/casted, past broken left ankle and leg/casted, ruptured spleen. History of Any Multi-Drug Resistant Organisms: ESBL Date of last positivie culture/infection: 04/24/21 MDRO Source:: ESBL URINE Past Surgical History: Bariatric Surgery, Cardiac Ablation, Orthopedic Surgery Additional Past Surgical History / Comment(s): gastric sleeve, EP studies, cardiac ablation for SVT, 03/2017 I &D L wrist. Past Anesthesia/Blood Transfusion Reactions: No Reported Reaction Additional Past Anesthesia/Blood Transfusion Reaction / Comment(s): Pt has clausterphobia. Past Psychological History: Anxiety, Bipolar, Depression, Panic Disorder Smoking Status: Current every day smoker Past Alcohol Use History: Occasional Past Drug Use History: Marijuana, Methamphetamine, Opiates, Prescription Drug Abuse ALLERGIES: Trazodone, lactose CHEMICAL DEPENDENCY HISTORY: The patient engages in multiple substances including alcohol, methamphetamines, opiates, other psychoactive substances such as paint, and benzodiazepines. FAMILY PSYCHIATRIC/SUBSTANCE USE HISTORY: The patient's father abuse cocaine. Sister abuses Xanax. She reports her mother has abused several different substances as well. SOCIAL HISTORY: Patient was born and raised in [place], [place]. She completed high school. She is currently unemployed. She currently lives with her grandmother and has no kids and is single. MENTAL STATUS EXAM: General Appearance: Patient appears to be stated age is alert, pleasant, and cooperative. Patient appears to have disheveled hygiene and grooming wearing hospital gown with fair eye contact. Behavior: Patient is calmly lying in bed. She appears to be restless in bed and is constantly moving her extremities. Speech: Patient's speech is fluent and nonpressured. Mood/Affect: Patient reports their mood is "depressed", affect is incongruent as she is presenting with a full range and at times nonchalant and bright. Suicidality/Homicidality: Patient denies having any suicidal or homicidal ideation intent or plan. Perceptions: Patient denies any visual hallucinations and denies any auditory hallucinations Though content/process: There is no evidence of any delusional thought content and thought process is linear and goal-directed. Memory and concentration: AOX3, grossly intact for the purposes of this session. Can spell "WORLD" backwards Judgment and insight: poor IMPRESSIONS: Substance-induced depressive disorder Generalized anxiety disorder Borderline personality disorder Polysubstance abuse including cocaine, benzodiazepines, opiates, and other psychoactive substances PLAN: -At this time patient DOES NOT meet criteria for inpatient psychiatric admission. The patient is currently not reporting any suicidal or homicidal ideation, intention, and/or plan. She is currently not overtly psychotic. The patient's primary diagnosis is her polysubstance abuse. -Would recommend the following medication changes/additions: We will restart the patient's Zoloft and BuSpar to aid with depression and anxiety however we will hold Seroquel at this time as this medication has been used for drugs of abuse. Should the patient wish to restart this medication, it is recommended that she follows up with her outpatient appointments with community mental health. -Discussed at length the option to contact the access number for inpatient substance abuse rehabilitation. The patient is contemplative at this time however is refusing to take action in regards to her substance use disorders. -Recommend the patient be given resources for outpatient follow-up for polysubstance use and mental health. -Psychiatry will sign off at this point, please contact with any questions. 01/02/22 14:15
[2022-01-02] MEDS: busPIRone HCl 5 MG TAB PO SCH (22:59)
[2022-01-02] MEDS: THIAMINE 100 MG TAB PO SCH (23:03)
[2022-01-03] MEDS: SODIUM CHLORIDE 0.9% 1,000 ML IV SCH ×3 (03:07→17:16)
[2022-01-03 07:54] LABS: HCG,Qualitative Serum Not Detected
[2022-01-03 08:01] LABS: African American GFR (CKD) >90 (>60 ml/min/1.73 sqM); Anion Gap 3 mmol/L; Blood Urea Nitrogen 13 mg/dL (7-17); Calcium 8.8 mg/dL (8.4-10.2); Carbon Dioxide 25 mmol/L (22-30); Chloride 111 mmol/L (98-107); Glucose 107 mg/dL (74-99); Magnesium 1.9 mg/dL (1.6-2.3); Non-African American GFR(CKD) >90 (>60 ml/min/1.73 sqM); Potassium 4.1 mmol/L (3.5-5.1); Sodium 139 mmol/L (137-145)
--- NOTE | 2022-01-03 09:36 | P.HPIM ---
History of Present Illness H&P Date: 01/02/22 Chief Complaint: Overdose. Patient is a 31-year-old female with known history of SVT status post ablation, lumbar disc degenerative disease, seizure disorder, alcohol abuse currently everyday smoker, active heroine IVDU, anxiety/depression bipolar disorder and panic disorder was brought to the hospital by ambulance due to suspected overdose. Patient was seen behaving bizarrely and EMS was called. Patient was reportedly admitted to using a number of substances and also reportedly huffing paint. Patient is anxious currently. Admits using IV heroin. No complaints of chest pain or shortness of breath. Patient does complain of epigastric abdominal pain. Nausea and no episodes of vomiting. No diarrhea. Denies any recent illnesses. Laboratory showed WBC 5.7 hemoglobin 15.0 and platelets 224 Sodium 144 potassium 4.0 chloride 110 bicarb is 22 BUN 18 creatinine 0.48 lactic acid was 2.5 on admission Serum alcohol level is 297 UDS is positive for amphetamines methamphetamines benzodiazepines, marijuana. EKG showed normal sinus rhythm. Review of Systems Constitutional: Patient denies any fever or chills . No generalized weakness or weight loss. Abdomen: Patient does complain of nausea and epigastric discomfort. No diarrhea. No abdominal pain. Cardiovascular: Patient denies any chest pain or short of breath no palpitations. Respiratory: patient denied any cough or sputum production. No shortness of breath Neurologic: Patient denied any numbness or tingling headache. Musculoskeletal: Patient denies any complaints of joint swelling or deformity. Skin: Negative Psychiatric: Anxious. Endocrine: No heat or cold intolerance. No recent weight gain. Genitourinary: No dysuria or hematuria. All other 14 point ROS negative except the above Past Medical History Past Medical History: Seizure Disorder, Supraventricular Tachycardia (SVT) Additional Past Medical History / Comment(s): SVT with cardiac ablation, lumbar DDD, bulging lumbar disc, seizure per family 08/01/17 and 07/11/17, ETOH abuse, past hx documented cocaine/opiate/benzodiazepine disorder, migraines, sinus problems, past bilateral arm fractures/casted, past broken left ankle and leg/casted, ruptured spleen. History of Any Multi-Drug Resistant Organisms: ESBL Date of last positivie culture/infection: 04/24/21 MDRO Source:: ESBL URINE Past Surgical History: Bariatric Surgery, Cardiac Ablation, Orthopedic Surgery Additional Past Surgical History / Comment(s): gastric sleeve, EP studies, cardiac ablation for SVT, 03/2017 I &D L wrist. Past Anesthesia/Blood Transfusion Reactions: No Reported Reaction Additional Past Anesthesia/Blood Transfusion Reaction / Comment(s): Pt has clausterphobia. Past Psychological History: Anxiety, Bipolar, Depression, Panic Disorder Smoking Status: Current every day smoker Past Alcohol Use History: Occasional Past Drug Use History: Marijuana, Methamphetamine, Opiates, Prescription Drug Abuse - Past Family History Father History Unknown: Yes Family Medical History: COPD, Diabetes Mellitus Mother History Unknown: Yes Family Medical History: Asthma Additional Family Medical History / Comment(s): pt reports mother had cyclic vomiting issues, substance abuse history Sister(s) Family Medical History: Supraventricular Tachycardia (SVT) Additional Family Medical History / Comment(s): Sister had SVT Medications and Allergies Home Medications Medication Instructions Recorded Confirmed Type No Known Home Medications 01/02/22 01/02/22 History Allergies Allergy/AdvReac Type Severity Reaction Status Date / Time lactose AdvReac Nausea & Verified 01/02/22 07:30 Vomiting & Diarrhea trazodone AdvReac dizziness Verified 01/02/22 07:30 Physical Exam Vitals: Vital Signs Temp Pulse Resp BP Pulse Ox 01/02/22 07:30 99 16 124/73 01/02/22 06:12 84 16 116/79 98 01/02/22 04:00 92 16 123/76 97 01/02/22 01:34 98.3 F 91 18 124/59 98 Intake and Output 01/01/22 01/02/22 01/02/22 22:59 06:59 14:59 Other: Weight 81.647 kg PHYSICAL EXAMINATION: Patient is lying in the bed comfortably, no acute distress, awake alert and oriented.. HEENT: Normocephalic. Neck is supple. Pupils reactive. Nostrils clear. Oral cavity is moist. Neck reveals no JVD, carotid bruits, or thyromegaly. CHEST EXAMINATION: Trachea is central. Symmetrical expansion. Lung gonzalez clear to auscultation and percussion. CARDIAC: Normal S1, S2 with no gallops. No murmurs ABDOMEN: Soft. Bowel sounds normal. No organomegaly. No abdominal bruits. Extremities: reveal no edema. No clubbing or cyanosis Neurologically awake, alert, oriented x3 with well-coordinated movements. No focal deficits noted Skin: No rash or skin lesions. Psychiatric: Cooperative. Nonsuicidal Musculoskeletal: No joint swelling or deformity. Normal range of motion. Results CBC & Chem 7: 01/02/22 02:43 01/03/22 07:26 Labs: Abnormal Lab Results - Last 24 Hours (Table) 01/02/22 01/02/22 Range/Units 02:43 02:43 Chloride 110 H (98-107) mmol/L Creatinine 0.48 L (0.52-1.04) mg/dL Glucose 108 H (74-99) mg/dL Plasma Lactic Acid Wilver 2.5 H* (0.7-2.0) mmol/L AST 46 H (14-36) U/L Total Protein 8.3 H (6.3-8.2) g/dL Serum Alcohol 297 H* mg/dL Thrombosis Risk Factor Assmnt - DVT/VTE Prophylaxis DVT/VTE Prophylaxis: Pharmacologic Prophylaxis ordered Assessment and Plan Assessment: Acute alcohol intoxication Polysubstance abuse with UDS positive for methamphetamines, amphetamines, benzodiazepines and marijuana. Epigastric discomfort while acute gastritis admission History of SVT status post ablation Seizure disorder History of bariatric surgery Lumbar degenerative disease Anxiety/depression and bipolar disorder and panic disorder Currently everyday smoker Active IVDU heroine DVT prophylaxis with early ambulation GI prophylaxis with PPI Plan: Patient will be current IV hydration and monitor for withdrawal symptoms. Psychiatry was consulted due to prior history of anxiety/depression and bipolar disorder and also polysubstance abuse. Continue with GI and DVT prophylaxis. Monitor closely.
[2022-01-03] MEDS: SERTRALINE 100 MG TAB PO SCH (09:39)
[2022-01-03] MEDS: THIAMINE 100 MG TAB PO SCH ×2 (09:39→17:42)
[2022-01-03] MEDS: PANTOPRAZOLE 40 MG TABLET PO SCH (09:39)
[2022-01-03] MEDS: busPIRone HCl 5 MG TAB PO SCH ×2 (09:41→20:13)
[2022-01-03] MEDS: LORazepam 2 MG/ML INJ IV PRN ×2 (10:10→20:14)
[2022-01-03] MEDS ORDERED: LOPERAMIDE 2 MG CAP PO PRN (10:54)
[2022-01-03] MEDS ORDERED: PROMETHAZINE 25 MG TAB PO PRN (10:54)
[2022-01-03] MEDS ORDERED: ACETAMINOPHEN TAB 325 MG TAB PO PRN (10:54)
[2022-01-03] MEDS ORDERED: hydrOXYzine HCL 25 MG TAB PO PRN (10:55)
[2022-01-03] MEDS ORDERED: IBUPROFEN 600 MG TAB PO PRN (10:55)
[2022-01-03] MEDS ORDERED: diazePAM 2 MG TAB PO PRN (10:56)
[2022-01-03] MEDS: cloNIDine HCL 0.1 MG TAB PO SCH ×3 (12:03→20:13)
[2022-01-03] MEDS: HEPARIN SODIUM,PORCINE/PF 5,000 UNIT/0.5 ML SYRINGE SQ SCH (17:41)
--- NOTE | 2022-01-03 21:23 | P.PN ---
Subjective This is a pleasant 31 Female with past medical history of supraventricular tachycardia, seizure disorder, she is status post cardiac ablation, polys ubstance abuse, migraine, status post bariatric surgery. History of anxiety, bipolar and depression and nicotine dependence. He is homeless Patient was brought to the hospital because she was in public and behaving bizarrely secondary to suspected overdose. Patient states that she injects heroin in her arms but not leg Today patient was lying in bed fully awake and oriented to time, place and p erson she looks withdrawn in bed, denies chest pain or dyspnea or abdominal pain. However she looks very anxious she has pain all over and with vomiting and diarrhea related to her withdrawal symptoms also with agitation and insomnia. Psychiatrist evaluated the patient and found her does not need inpatient criteria for mental health unit and added Zoloft and BuSpar and discontinued Seroquel She is mildly tachycardic but not febrile and resolved vitals are unremarkable. Is unremarkable CBC, BMP, lactic acid was elevated 2.5 came back to normal 1.8, liver enzymessignificantly elevated. Serum test is negative Salicylate less than 1, acetaminophen less than 10, urine drug screen is p ositive for amphetamine, methamphetamine, cocaine and marijuana alcoholic level was elevated to 97 on admission Coronavirus not detected EKG showing normal sinus rhythm at [address]-T changes and QTC 418 Objective - Vital Signs Vital signs: Vital Signs Temp 98.5 F 01/03/22 02:39 Pulse 88 01/03/22 02:39 Resp 18 01/03/22 02:39 BP 153/92 01/03/22 02:39 Pulse Ox 100 01/03/22 02:39 Intake & Output 01/02/22 01/03/22 01/03/22 18:59 06:59 18:59 Weight 81.647 kg Other: # Voids 1 - Exam GENERAL: The patient is alert and oriented x3, not in any acute distress. Well developed, well nourished. HEENT: Pupils are round and equally reacting to light. EOMI. No scleral icterus. No conjunctival pallor. Normocephalic, atraumatic. No pharyngeal erythema. No thyromegaly. CARDIOVASCULAR: S1 and S2 present. No murmurs, rubs, or gallops. PULMONARY: Chest is clear to auscultation, no wheezing or crackles. ABDOMEN: Soft, nontender, nondistended, normoactive bowel sounds. No palpable organomegaly. MUSCULOSKELETAL: No joint swelling or deformity. -EXTREMITIES: No cyanosis, clubbing, or pedal edema. Injection mabry in the cubital fossa and forearm with no signs of infection or cellulitis or discharge NEUROLOGICAL: Gross neurological examination did not reveal any focal deficits. SKIN: No rashes. no petechiae. - Labs CBC & Chem 7: 01/02/22 02:43 01/03/22 07:26 Labs: Abnormal Lab Results - Last 24 Hours (Table) 01/02/22 Range/Units 11:00 Ur Amphetamines Screen Detected H (NotDetected) U Methamphetamines Scrn Detected H (NotDetected) U Benzodiazepines Scrn Detected H (NotDetected) U Marijuana (THC) Screen Detected H (NotDetected) Assessment and Plan Assessment: Substance abuse including cocaine and marijuana and methamphetamine. Possible Heroin Alcohol abuse Anxiety, depression and bipolar Homelessness History of seizure History of SVT status post ablation History of migraine Status post bariatric surgery She is currently on her home medication and normal saline with 30 mL/h which is Azul to 75 [place] upper or Plan: This is a pleasant 51 years old female who presents with substance abuse, Continue with gentle hydration Start symptomatic treatment with clonidine, Phenergan, Imodium, benzodiazepines when necessary, Tylenol, Motrin, Atarax Psychiatric team input is noted, they signed off the case and they found patient does not meet criteria for inpatient psychiatric admission, the started the patient on Zoloft and 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 Continue same treatment. Continue with symptomatic treatment. Resume home medication. Monitor lytes and vitals. DVT and GI prophylaxis. Further recommendations as per clinical course of the patient DVT prophylaxis: Subcutaneous heparin GI Prophylaxis: Rene ro will resume the care of the patient tomorrow
[2022-01-04] MEDS: HEPARIN SODIUM,PORCINE/PF 5,000 UNIT/0.5 ML SYRINGE SQ SCH ×2 (00:36→09:38)
[2022-01-04] MEDS: LORazepam 2 MG/ML INJ IV PRN ×2 (01:10→09:38)
[2022-01-04] MEDS: SODIUM CHLORIDE 0.9% 1,000 ML IV SCH (02:49)
[2022-01-04 08:26] VITALS: TEMP 97.9
[2022-01-04] MEDS ORDERED: FAMOTIDINE 20 MG/2 ML VIAL IV SCH (09:00)
[2022-01-04] MEDS: PANTOPRAZOLE 40 MG TABLET PO SCH (09:28)
[2022-01-04] MEDS: THIAMINE 100 MG TAB PO SCH (09:28)
[2022-01-04] MEDS: cloNIDine HCL 0.1 MG TAB PO SCH ×2 (09:29→15:09)
[2022-01-04] MEDS: SERTRALINE 100 MG TAB PO SCH (09:29)
[2022-01-04] MEDS: busPIRone HCl 5 MG TAB PO SCH (09:38)
[2022-01-04 14:28] VITALS: BP 129/79; PULSE 92; RESP 17
--- NOTE | 2022-01-06 16:02 | DS ---
DISCHARGE SUMMARY DATE OF DISCHARGE: 01/04/2022 CHIEF COMPLAINT: Altered mental status and substance abuse. HISTORY OF PRESENT ILLNESS AND PHYSICAL EXAMINATION: Details of this lady's history and physical can be found in the initial workup. LABORATORY STUDIES: While she was in the hospital she had laboratory studies, details of which can be found in the laboratory section of her chart. COURSE IN THE HOSPITAL: After admission she was placed on bedrest, started on intravenous fluids and monitoring of her vital signs and neurologic status. She still became more awake and alert, was stable, and it was felt that she could be discharged on January 04. She will go home on her usual activity and diet and any medications that she was on before she came in. She will be asked to follow up in my office. FINAL DIAGNOSES: 1. overdose. 2. History of polysubstance abuse. 3. History of depression. OPERATIONS: None. CONSULTATIONS: None. She is improved. SISI / RIDGE: [id number] /
== END 2022-01-04 16:02 | disposition home or self-care (01) ==
LOC: EC 01:31 → 6NMEDSUR 06:22
PROVIDERS: ADMIT Family Medicine; ATTEND Family Medicine
DX: F10.129 Alcohol abuse with intoxication, unspecified (principal); F18.10 Inhalant abuse, uncomplicated; F15.10 Other stimulant abuse, uncomplicated; F14.10 Cocaine abuse, uncomplicated; F11.10 Opioid abuse, uncomplicated; F19.10 Other psychoactive substance abuse, uncomplicated; K29.00 Acute gastritis without bleeding; G40.909 Epilepsy, unspecified, not intractable, without status epilepticus; I47.1 Supraventricular tachycardia; M51.36 Other intervertebral disc degeneration, lumbar region; M51.26 Other intervertebral disc displacement, lumbar region; F31.9 Bipolar disorder, unspecified; F41.0 Panic disorder [episodic paroxysmal anxiety]; F41.9 Anxiety disorder, unspecified; F17.200 Nicotine dependence, unspecified, uncomplicated; Y90.8 Blood alcohol level of 240 mg/100 ml or more; G43.909 Migraine, unspecified, not intractable, without status migrainosus; F40.240 Claustrophobia; Z16.12 Extended spectrum beta lactamase (ESBL) resistance; G47.00 Insomnia, unspecified; Z20.822 Contact with and (suspected) exposure to COVID-19; Z79.899 Other long term (current) drug therapy; E73.9 Lactose intolerance, unspecified; Z88.8 Allergy status to other drugs, medicaments and biological substances; Z98.84 Bariatric surgery status; Z59.00 Homelessness unspecified; Z98.890 Other specified postprocedural states; Z83.3 Family history of diabetes mellitus; Z82.5 Family history of asthma and other chronic lower respiratory diseases; Z82.49 Family history of ischemic heart disease and other diseases of the circulatory system; Z83.79 Family history of other diseases of the digestive system
CPT/HCPCS: 96376 ×3; 96372 ×2; 96375; 96361; 96374; 99285; 36415; 93005; 80053; 80048; 83605; 83735; 85025; 81025; 84703; 80306; 80143; 87635; 80179; G0378 ×3; G0480; J2060 ×3; J1644 ×2; 80320

== ENCOUNTER 2022-01-17 13:41 | Emergency (ER) | payer OTHER ==
[2022-01-17 14:53] LABS: Appearance,Urine Cloudy (Clear); Bacteria,Urine Occasional /hpf; Bilirubin,Urine Negative (Negative); Blood,Urine Negative (Negative); Color,Urine Yellow; Glucose,Urine (UA) Negative (Negative); Ketones,Urine Negative (Negative); Leukocyte Esterase,Urine Large (Negative); Mucus,Urine Rare /hpf; Nitrite,Urine Positive (Negative); PH, Urine 5.5 (5.0-8.0); Protein,Urine Trace (Negative); RBC,Urine 2 /hpf (0-5); Specific Gravity,Urine 1.025 (1.001-1.035); Squamous Epithelial Cell,Urine 1 /hpf (0-4); Urobilinogen,Urine <2.0 mg/dL (<2.0); WBC,Urine 21 /hpf (0-5)
[2022-01-17] MEDS ORDERED: CEPHALEXIN 500 MG CAP PO STA (15:16)
--- NOTE | 2022-01-17 15:38 | ED ---
General Adult HPI - General Chief complaint: Recheck/Abnormal Lab/Rx Stated complaint: Illicit Drug Use Time Seen by Provider: 01/17/22 13:45 Source: patient Mode of arrival: EMS Limitations: no limitations - History of Present Illness Initial comments: Patient is a 31-year-old female with past nuchal history of polysubstance abuse who presents to the emergency department accompanied by police. Reportedly she was walking outside and was disoriented and therefore police brought her in for evaluation. Patient is much more alert upon presentation. She states that she has been staying at a friend's house for the past week and they have been using excessive amount of heroin and methamphetamines. The friend then kicked her out of the house this morning while she was still high. States that she last used approximately 5 hours ago. She admits that she felt disoriented however feels improved at this time. She is Eating and Drinking in the Room and States That This Is the First Food That She ate in a Couple of Days. Also Reports That She Hasn't Been Drinking. She Denies Any Suicidal or homicidal ideations. No other alleviating, precipitating or modifying factors - Related Data Previous Rx's Medication Instructions Recorded Cephalexin [Keflex] 500 mg PO BID #14 cap 01/17/22 Allergies Allergy/AdvReac Type Severity Reaction Status Date / Time lactose AdvReac Nausea & Verified 01/17/22 14:21 Vomiting & Diarrhea trazodone AdvReac dizziness Verified 01/17/22 14:21 Review of Systems ROS Statement: Those systems with pertinent positive or pertinent negative responses have been documented in the HPI. ROS Other: All systems not noted in ROS Statement are negative. Past Medical History Past Medical History: Seizure Disorder, Supraventricular Tachycardia (SVT) Additional Past Medical History / Comment(s): SVT with cardiac ablation, lumbar DDD, bulging lumbar disc, seizure per family 08/01/17 and 07/11/17, ETOH abuse, past hx documented cocaine/opiate/benzodiazepine disorder, migraines, sinus problems, past bilateral arm fractures/casted, past broken left ankle and leg/casted, ruptured spleen. History of Any Multi-Drug Resistant Organisms: ESBL Date of last positivie culture/infection: 04/24/21 MDRO Source:: ESBL URINE Past Surgical History: Bariatric Surgery, Cardiac Ablation, Orthopedic Surgery Additional Past Surgical History / Comment(s): gastric sleeve, EP studies, c ardiac ablation for SVT, 03/2017 I &D L wrist. Past Anesthesia/Blood Transfusion Reactions: No Reported Reaction Additional Past Anesthesia/Blood Transfusion Reaction / Comment(s): Pt has clausterphobia. Past Psychological History: Anxiety, Bipolar, Depression, Panic Disorder Smoking Status: Current every day smoker Past Alcohol Use History: Occasional Past Drug Use History: Cocaine, Heroin, Marijuana, Methamphetamine, Opiates, Prescription Drug Abuse - Past Family History Father History Unknown: Yes Family Medical History: COPD, Diabetes Mellitus Mother History Unknown: Yes Family Medical History: Asthma Additional Family Medical History / Comment(s): pt reports mother had cyclic vomiting issues, substance abuse history Sister(s) Family Medical History: Supraventricular Tachycardia (SVT) Additional Family Medical History / Comment(s): Sister had SVT General Exam Limitations: no limitations Course Vital Signs 01/17/22 13:45 Temperature 97.1 F L Pulse Rate 95 Respiratory 16 Rate Blood Pressure 145/94 O2 Sat by Pulse 98 Oximetry Medical Decision Making - Medical Decision Making Upon arrival patient was placed into room 19. She is alert and oriented 3 at this time. Is able to eat and drink. Has been thinking about going back to rehab. Denies any suicidal or homicidal ideations. Requesting to be checked for urinary tract infection as she frequently gets them. Urinalysis does demonstrate positive nitrites and occasional bacteria. She is given a dose of Keflex and Keflex called in the pharmacy. Highly recommend that she stop using any type of illicit drugs. Enter rehab. Return for any new or worsening symptoms. Patient agreed with treatment plan. Does have a safe place to go - normally stays with her grandma. Patient discharged home in stable condition - Lab Data Lab Results 01/17/22 01/17/22 Range/Units 14:41 14:41 Urine Color Yellow Urine Appearance Cloudy H (Clear) Urine pH 5.5 (5.0-8.0) Ur Specific [place] 1.025 (1.001-1.035) Urine Protein Trace H (Negative) Urine Glucose (UA) Negative (Negative) Urine Ketones Negative (Negative) Urine Blood Negative (Negative) Urine Nitrite Positive H (Negative) Urine Bilirubin Negative (Negative) Urine Urobilinogen <2.0 (<2.0) mg/dL Ur Leukocyte Esterase Large H (Negative) Urine RBC 2 (0-5) /hpf Urine WBC 21 H (0-5) /hpf Ur Squamous Epith Cells 1 (0-4) /hpf Urine Bacteria Occasional H (None) /hpf Urine Mucus Rare H (None) /hpf Urine HCG, Qual Not Detected (Not Detectd) Disposition Clinical Impression: Polysubstance abuse, UTI (urinary tract infection) Disposition: HOME SELF-CARE Condition: Stable Instructions (If sedation given, give patient instructions): Urinary Tract Infection in Women (ED), Polysubstance Abuse (ED) Additional Instructions: Please follow-up with primary care doctor in 2-4 days. Return for any new or worsening symptoms Prescriptions: Cephalexin [Keflex] 500 mg PO BID #14 cap Is patient prescribed a controlled substance at d/c from ED?: No Referrals: Tony Connolly MD [Primary Care Provider] - 1-2 days Time of Disposition: 15:37
[2022-01-17 15:55] VITALS: BP 126/79; PULSE 104; RESP 18; TEMP 98
== END 2022-01-17 15:54 | disposition home or self-care (01) ==
LOC: EC 13:41
DX: F19.10 Other psychoactive substance abuse, uncomplicated (principal); N39.0 Urinary tract infection, site not specified; F41.9 Anxiety disorder, unspecified; F31.9 Bipolar disorder, unspecified; F17.200 Nicotine dependence, unspecified, uncomplicated; F12.90 Cannabis use, unspecified, uncomplicated; Z98.84 Bariatric surgery status
CPT/HCPCS: 81001; 81025; 87086; 99285

== ENCOUNTER 2022-02-01 17:02 | Emergency (ER) | payer OTHER ==
[2022-02-01] MEDS ORDERED: ONDANSETRON 4 MG/2 ML VIAL IVP STA (17:25)
[2022-02-01] MEDS ORDERED: SODIUM CHLORIDE 0.9% 500 ML 500 ML IV ONE (17:25)
--- NOTE | 2022-02-01 19:50 | ED ---
General Adult HPI - General Chief complaint: Overdose Stated complaint: Overdose Time Seen by Provider: 02/01/22 17:04 Source: patient, EMS, RN notes reviewed, old records reviewed Mode of arrival: EMS Limitations: no limitations - History of Present Illness Initial comments: 31-year-old female brought to the emergency department after heroin overdose. Patient is awake and alert at the time my evaluation with nausea and vomiting. She admits to IV heroin use. She was given 1 mg of intravenous Narcan by paramedics prior to arrival. She did not require respiratory support. - Related Data Home Medications Medication Instructions Recorded Confirmed No Known Home Medications 02/01/22 02/01/22 Allergies Allergy/AdvReac Type Severity Reaction Status Date / Time lactose AdvReac Nausea & Verified 02/01/22 18:06 Vomiting & Diarrhea trazodone AdvReac dizziness Verified 02/01/22 18:06 Review of Systems ROS Statement: Those systems with pertinent positive or pertinent negative responses have been documented in the HPI. ROS Other: All systems not noted in ROS Statement are negative. Past Medical History Past Medical History: Seizure Disorder, Supraventricular Tachycardia (SVT) Additional Past Medical History / Comment(s): SVT with cardiac ablation, lumbar DDD, bulging lumbar disc, seizure per family 08/01/17 and 07/11/17, ETOH abuse, past hx documented cocaine/opiate/benzodiazepine disorder, migraines, sinus problems, past bilateral arm fractures/casted, past broken left ankle and leg/casted, ruptured spleen. History of Any Multi-Drug Resistant Organisms: ESBL Date of last positivie culture/infection: 01/17/22 MDRO Source:: ESBL URINE Past Surgical History: Bariatric Surgery, Cardiac Ablation, Orthopedic Surgery Additional Past Surgical History / Comment(s): gastric sleeve, EP studies, cardiac ablation for SVT, 03/2017 I &D L wrist. Past Anesthesia/Blood Transfusion Reactions: No Reported Reaction Additional Past Anesthesia/Blood Transfusion Reaction / Comment(s): Pt has clausterphobia. Past Psychological History: Anxiety, Bipolar, Depression, Panic Disorder Smoking Status: Current every day smoker Past Alcohol Use History: Occasional Past Drug Use History: Cocaine, Heroin, Marijuana, Methamphetamine, Opiates, Prescription Drug Abuse - Past Family History Father History Unknown: Yes Family Medical History: COPD, Diabetes Mellitus Mother History Unknown: Yes Family Medical History: Asthma Additional Family Medical History / Comment(s): pt reports mother had cyclic vomiting issues, substance abuse history Sister(s) Family Medical History: Supraventricular Tachycardia (SVT) Additional Family Medical History / Comment(s): Sister had SVT General Exam Limitations: no limitations General appearance: alert, in no apparent distress Head exam: Present: atraumatic, normocephalic Eye exam: Present: normal appearance, PERRL ENT exam: Present: normal exam Neck exam: Present: normal inspection. Absent: tenderness, meningismus Respiratory exam: Present: normal lung sounds bilaterally. Absent: respiratory distress, wheezes Cardiovascular Exam: Present: regular rate, normal rhythm GI/Abdominal exam: Present: soft. Absent: distended, tenderness Extremities exam: Present: normal inspection, normal capillary refill. Absent: pedal edema Back exam: Present: normal inspection Neurological exam: Present: alert, oriented X3, CN II-XII intact. Absent: motor sensory deficit Skin exam: Present: warm, dry, intact. Absent: cyanosis, diaphoretic Course Vital Signs 02/01/22 02/01/22 02/01/22 17:03 17:13 17:45 Temperature 98.3 F Pulse Rate 122 H 98 Pulse Rate [ 125 H Switch Foreman ] Respiratory 22 18 Rate Blood Pressure 150/111 141/98 O2 Sat by Pulse 99 99 Oximetry Medical Decision Making - Medical Decision Making 31-year-old female status post heroin overdose. Patient does not require any further Narcan. She is observed in the emergency department for approximately 3 hours. Currently awaiting placement for rehabilitation. She is awake and alert with stable vitals. She is not suicidal or homicidal. Disposition Clinical Impression: Overdose Disposition: HOME SELF-CARE Condition: Fair Instructions (If sedation given, give patient instructions): Adult Overdose (ED) Is patient prescribed a controlled substance at d/c from ED?: No Referrals: Tony Connolly MD [Primary Care Provider] - 1-2 days Time of Disposition: 21:33
[2022-02-02 09:55] VITALS: RESP 18; TEMP 98.4
[2022-02-02] MEDS ORDERED: LORazepam 1 MG TAB PO STA (10:17)
[2022-02-02 12:04] VITALS: BP 134/80; PULSE 84
== END 2022-02-02 11:58 | disposition home or self-care (01) ==
LOC: EC 17:02
DX: T40.1X1A Poisoning by heroin, accidental (unintentional), initial encounter (principal); F17.200 Nicotine dependence, unspecified, uncomplicated; F12.90 Cannabis use, unspecified, uncomplicated; F11.90 Opioid use, unspecified, uncomplicated; F15.90 Other stimulant use, unspecified, uncomplicated; F14.90 Cocaine use, unspecified, uncomplicated
CPT/HCPCS: 99284; 96374; J2405

== ENCOUNTER 2022-02-15 12:10 | Observation (INO) | payer OTHER ==
[2022-02-15] MEDS ORDERED: SODIUM CHLORIDE 0.9% 1,000 ML IV STA (12:36)
[2022-02-15] MEDS ORDERED: NALOXONE 0.4 MG/ML 1 ML VIAL IV STA (12:36)
[2022-02-15 13:10] LABS: Basophils # (A) 0.1 k/uL (0-0.2); Basophils % (A) 1 %; Eosinophils % (A) 1 %; HCT 46.7 % (34.0-46.0); HGB 15.5 gm/dL (11.4-16.0); Lymphocytes # (A) 2.3 k/uL (1.0-4.8); Lymphocytes % (A) 38 %; MCH 29.8 pg (25.0-35.0); MCHC 33.1 g/dL (31.0-37.0); Monocytes # (A) 0.2 k/uL (0-1.0); Monocytes % (A) 3 %; Neutrophils # (A) 3.3 k/uL (1.3-7.7); Neutrophils % (A) 55 %; Platelet Count 237 k/uL (150-450); RBC 5.18 m/uL (3.80-5.40); RDW 14.3 % (11.5-15.5); WBC 6.1 k/uL (3.8-10.6)
[2022-02-15 13:22] LABS: ALT 35 U/L (4-34); AST 66 U/L (14-36); Acetaminophen <10.0 ug/mL; African American GFR (CKD) >90 (>60 ml/min/1.73 sqM); Albumin 4.9 g/dL (3.5-5.0); Alkaline Phosphatase 98 U/L (38-126); Anion Gap 15 mmol/L; Blood Urea Nitrogen 11 mg/dL (7-17); Calcium 8.7 mg/dL (8.4-10.2); Carbon Dioxide 23 mmol/L (22-30); Chloride 106 mmol/L (98-107); Glucose 107 mg/dL (74-99); Lipase 247 U/L (23-300); Non-African American GFR(CKD) >90 (>60 ml/min/1.73 sqM); Potassium 4.4 mmol/L (3.5-5.1); Salicylate <1.0 mg/dL; Sodium 144 mmol/L (137-145); Total Bilirubin 0.6 mg/dL (0.2-1.3)
--- NOTE | 2022-02-15 13:22 | ED ---
General Adult HPI - General Chief complaint: Overdose Stated complaint: Overdose Time Seen by Provider: 02/15/22 12:36 Source: patient, EMS, RN notes reviewed Mode of arrival: EMS Limitations: altered mental status - History of Present Illness Initial comments: This a 31-year-old female presents emergency from via EMS for evaluation of altered mental status. Patient was on a car sleeping. Patient is very drowsy there is noted to be a fifth of alcohol in the vehicle with patient. Patient has had a long history of alcohol and drug abuse. Patient states she had her last drink 2 hours ago states that she is going through withdrawals though she did state that she drank a fifth of alcohol. Patient denies any chest pain states she has some palpitations. Denies any intentional harm denies being suicidal or homicidal she states currently last time she used drugs. Patient is not very cooperative, very forthcoming with information. - Related Data Home Medications Medication Instructions Recorded Confirmed No Known Home Medications 02/01/22 02/15/22 Allergies Allergy/AdvReac Type Severity Reaction Status Date / Time lactose AdvReac Nausea & Verified 02/15/22 12:52 Vomiting & Diarrhea trazodone AdvReac dizziness Verified 02/15/22 12:52 Review of Systems ROS Statement: Those systems with pertinent positive or pertinent negative responses have been documented in the HPI. ROS Other: All systems not noted in ROS Statement are negative. Past Medical History Past Medical History: Seizure Disorder, Supraventricular Tachycardia (SVT) Additional Past Medical History / Comment(s): SVT with cardiac ablation, lumbar DDD, bulging lumbar disc, seizure per family 08/01/17 and 07/11/17, ETOH abuse, past hx documented cocaine/opiate/benzodiazepine disorder, migraines, sinus problems, past bilateral arm fractures/casted, past broken left ankle and leg/casted, ruptured spleen, hep c History of Any Multi-Drug Resistant Organisms: ESBL Date of last positivie culture/infection: 01/17/22 MDRO Source:: ESBL URINE Past Surgical History: Bariatric Surgery, Cardiac Ablation, Orthopedic Surgery Additional Past Surgical History / Comment(s): gastric sleeve, EP studies, cardiac ablation for SVT, 03/2017 I &D L wrist. Past Anesthesia/Blood Transfusion Reactions: No Reported Reaction Additional Past Anesthesia/Blood Transfusion Reaction / Comment(s): Pt has c lausterphobia. Past Psychological History: Anxiety, Bipolar, Depression, Panic Disorder Smoking Status: Current every day smoker Past Alcohol Use History: Occasional Past Drug Use History: Cocaine, Heroin, Marijuana, Methamphetamine, Opiates, Prescription Drug Abuse - Past Family History Father History Unknown: Yes Family Medical History: COPD, Diabetes Mellitus Mother History Unknown: Yes Family Medical History: Asthma Additional Family Medical History / Comment(s): pt reports mother had cyclic vomiting issues, substance abuse history Sister(s) Family Medical History: Supraventricular Tachycardia (SVT) Additional Family Medical History / Comment(s): Sister had SVT General Exam Limitations: altered mental status General appearance: alert, in no apparent distress Head exam: Present: atraumatic, normocephalic, normal inspection Eye exam: Present: normal appearance, PERRL, EOMI. Absent: scleral icterus, conjunctival injection, periorbital swelling ENT exam: Present: normal exam, normal oropharynx, mucous membranes moist Neck exam: Present: normal inspection, full ROM. Absent: tenderness, meningismus, lymphadenopathy Respiratory exam: Present: normal lung sounds bilaterally. Absent: respiratory distress, wheezes, rales, rhonchi, stridor Cardiovascular Exam: Present: normal rhythm, tachycardia, normal heart sounds. Absent: systolic murmur, diastolic murmur, rubs, gallop, clicks GI/Abdominal exam: Present: soft, normal bowel sounds. Absent: distended, tenderness, guarding, rebound, rigid Neurological exam: Present: alert, CN II-XII intact. Absent: oriented X3 Skin exam: Present: warm, dry, intact, normal color. Absent: rash Course Vital Signs 02/15/22 02/15/22 12:22 13:08 Temperature 98.9 F Pulse Rate 117 H Respiratory 18 10 L Rate Blood Pressure 114/84 O2 Sat by Pulse 96 Oximetry Medical Decision Making - Medical Decision Making 31-year-old presented for altered mental status. Patient's found to be severely intoxicated with blood alcohol 460. Patient is requesting Ativan at this time patient was not given Ativan to be placed on CIWAscale and admitted for further treatment and observation. - Lab Data Result diagrams: 02/15/22 12:55 02/15/22 12:55 Lab Results 02/15/22 02/15/22 02/15/22 Range/Units 12:55 12:55 12:55 WBC 6.1 (3.8-10.6) k/uL RBC 5.18 (3.80-5.40) m/uL Hgb 15.5 (11.4-16.0) gm/dL Hct 46.7 H (34.0-46.0) % MCV 90.0 (80.0-100.0) fL MCH 29.8 (25.0-35.0) pg MCHC 33.1 (31.0-37.0) g/dL RDW 14.3 (11.5-15.5) % Plt Count 237 (150-450) k/uL MPV 8.0 Neutrophils % 55 % Lymphocytes % 38 % Monocytes % 3 % Eosinophils % 1 % Basophils % 1 % Neutrophils # 3.3 (1.3-7.7) k/uL Lymphocytes # 2.3 (1.0-4.8) k/uL Monocytes # 0.2 (0-1.0) k/uL Eosinophils # 0.0 (0-0.7) k/uL Basophils # 0.1 (0-0.2) k/uL Sodium 144 (137-145) mmol/L Potassium 4.4 (3.5-5.1) mmol/L Chloride 106 (98-107) mmol/L Carbon Dioxide 23 (22-30) mmol/L Anion Gap 15 mmol/L BUN 11 (7-17) mg/dL Creatinine 0.67 (0.52-1.04) mg/dL Est GFR (CKD-EPI)AfAm >90 (>60 ml/min/1.73 sqM) Est GFR (CKD-EPI)NonAf >90 (>60 ml/min/1.73 sqM) Glucose 107 H (74-99) mg/dL Plasma Lactic Acid Wilver 3.1 H* (0.7-2.0) mmol/L Calcium 8.7 (8.4-10.2) mg/dL Total Bilirubin 0.6 (0.2-1.3) mg/dL AST 66 H (14-36) U/L ALT 35 H (4-34) U/L Alkaline Phosphatase 98 (38-126) U/L Total Protein 9.0 H (6.3-8.2) g/dL Albumin 4.9 (3.5-5.0) g/dL Lipase 247 (23-300) U/L Urine Color Urine Appearance (Clear) Urine pH (5.0-8.0) Ur Specific [place] (1.001-1.035) Urine Protein (Negative) Urine Glucose (UA) (Negative) Urine Ketones (Negative) Urine Blood (Negative) Urine Nitrite (Negative) Urine Bilirubin (Negative) Urine Urobilinogen (<2.0) mg/dL Ur Leukocyte Esterase (Negative) Urine RBC (0-5) /hpf Urine WBC (0-5) /hpf Ur Squamous Epith Cells (0-4) /hpf Amorphous Sediment (None) /hpf Urine Bacteria (None) /hpf Urine Mucus (None) /hpf Urine HCG, Qual (Not Detectd) Salicylates <1.0 mg/dL Urine Opiates Screen (NotDetected) Ur Oxycodone Screen (NotDetected) Urine Methadone Screen (NotDetected) Ur Propoxyphene Screen (NotDetected) Acetaminophen <10.0 ug/mL Ur Barbiturates Screen (NotDetected) U Tricyclic Antidepress (NotDetected) Ur Phencyclidine Scrn (NotDetected) Ur Amphetamines Screen (NotDetected) U Methamphetamines Scrn (NotDetected) U Benzodiazepines Scrn (NotDetected) Urine Cocaine Screen (NotDetected) U Marijuana (THC) Screen (NotDetected) Serum Alcohol 460 H* mg/dL 02/15/22 02/15/22 Range/Units 13:30 13:30 WBC (3.8-10.6) k/uL RBC (3.80-5.40) m/uL Hgb (11.4-16.0) gm/dL Hct (34.0-46.0) % MCV (80.0-100.0) fL MCH (25.0-35.0) pg MCHC (31.0-37.0) g/dL RDW (11.5-15.5) % Plt Count (150-450) k/uL MPV Neutrophils % % Lymphocytes % % Monocytes % % Eosinophils % % Basophils % % Neutrophils # (1.3-7.7) k/uL Lymphocytes # (1.0-4.8) k/uL Monocytes # (0-1.0) k/uL Eosinophils # (0-0.7) k/uL Basophils # (0-0.2) k/uL Sodium (137-145) mmol/L Potassium (3.5-5.1) mmol/L Chloride (98-107) mmol/L Carbon Dioxide (22-30) mmol/L Anion Gap mmol/L BUN (7-17) mg/dL Creatinine (0.52-1.04) mg/dL Est GFR (CKD-EPI)AfAm (>60 ml/min/1.73 sqM) Est GFR (CKD-EPI)NonAf (>60 ml/min/1.73 sqM) Glucose (74-99) mg/dL Plasma Lactic Acid Wilver (0.7-2.0) mmol/L Calcium (8.4-10.2) mg/dL Total Bilirubin (0.2-1.3) mg/dL AST (14-36) U/L ALT (4-34) U/L Alkaline Phosphatase (38-126) U/L Total Protein (6.3-8.2) g/dL Albumin (3.5-5.0) g/dL Lipase (23-300) U/L Urine Color Yellow Urine Appearance Cloudy H (Clear) Urine pH 5.5 (5.0-8.0) Ur Specific [place] 1.012 (1.001-1.035) Urine Protein Trace H (Negative) Urine Glucose (UA) Negative (Negative) Urine Ketones Negative (Negative) Urine Blood Negative (Negative) Urine Nitrite Negative (Negative) Urine Bilirubin Negative (Negative) Urine Urobilinogen <2.0 (<2.0) mg/dL Ur Leukocyte Esterase Small H (Negative) Urine RBC 2 (0-5) /hpf Urine WBC 6 H (0-5) /hpf Ur Squamous Epith Cells 5 H (0-4) /hpf Amorphous Sediment Rare H (None) /hpf Urine Bacteria Occasional H (None) /hpf Urine Mucus Rare H (None) /hpf Urine HCG, Qual Not Detected (Not Detectd) Salicylates mg/dL Urine Opiates Screen Not Detected (NotDetected) Ur Oxycodone Screen Not Detected (NotDetected) Urine Methadone Screen Not Detected (NotDetected) Ur Propoxyphene Screen Not Detected (NotDetected) Acetaminophen ug/mL Ur Barbiturates Screen Not Detected (NotDetected) U Tricyclic Antidepress Not Detected (NotDetected) Ur Phencyclidine Scrn Not Detected (NotDetected) Ur Amphetamines Screen Not Detected (NotDetected) U Methamphetamines Scrn Not Detected (NotDetected) U Benzodiazepines Scrn Not Detected (NotDetected) Urine Cocaine Screen Not Detected (NotDetected) U Marijuana (THC) Screen Not Detected (NotDetected) Serum Alcohol mg/dL Disposition Clinical Impression: Very severe alcohol intoxication Disposition: ADMITTED IP TO THIS [facility] Condition: Poor Referrals: Tony Connolly MD [Primary Care Provider] - 1-2 days
[2022-02-15 13:32] LABS: Alcohol 460 mg/dL
[2022-02-15 13:47] LABS: Amorphous Sediment,Urine Rare /hpf; Appearance,Urine Cloudy (Clear); Bacteria,Urine Occasional /hpf; Bilirubin,Urine Negative (Negative); Blood,Urine Negative (Negative); Color,Urine Yellow; Glucose,Urine (UA) Negative (Negative); Ketones,Urine Negative (Negative); Leukocyte Esterase,Urine Small (Negative); Mucus,Urine Rare /hpf; Nitrite,Urine Negative (Negative); PH, Urine 5.5 (5.0-8.0); Protein,Urine Trace (Negative); RBC,Urine 2 /hpf (0-5); Specific Gravity,Urine 1.012 (1.001-1.035); Squamous Epithelial Cell,Urine 5 /hpf (0-4); Urobilinogen,Urine <2.0 mg/dL (<2.0); WBC,Urine 6 /hpf (0-5)
[2022-02-15 13:48] LABS: Amphetamine Screen,Urine Not Detected (NotDetected); Barbiturate Screen,Urine Not Detected (NotDetected); Benzodiazepines Screen,Urine Not Detected (NotDetected); Cocaine Screen,Urine Not Detected (NotDetected); Methadone Screen, Urine Not Detected (NotDetected); Opiate Screen,Urine Not Detected (NotDetected); Oxycodone Screen, Urine Not Detected (NotDetected); Phencyclidine Screen,Urine Not Detected (NotDetected); Tricyclic Antidepressant,Urine Not Detected (NotDetected); Urn Cannabinoid Scrn Not Detected (NotDetected)
[2022-02-15] MEDS ORDERED: LORazepam 2 MG/ML INJ IV PRN (14:17)
[2022-02-15] MEDS ORDERED: ONDANSETRON 4 MG/2 ML VIAL IVP PRN (14:18)
[2022-02-15] MEDS ORDERED: NALOXONE 0.4 MG/ML 1 ML VIAL IV PRN (14:18)
[2022-02-15] MEDS: LORazepam 2 MG/ML INJ IV PRN ×6 (16:11→23:33)
[2022-02-15] MEDS: THIAMINE 100 MG TAB PO SCH (16:11)
[2022-02-15] MEDS: SODIUM CHLORIDE 0.9% 1,000 ML IV SCH ×2 (16:12→23:37)
--- NOTE | 2022-02-15 19:07 | HP ---
HISTORY AND PHYSICAL CHIEF COMPLAINT: Drug and alcohol overdose. HISTORY OF PRESENT ILLNESS: This is another admission for this 31-year-old white female who has a long-standing history of major depression with drug addiction. She has been in and out of rehab facilities. Her mother used to have her take drugs with her along with her sister. Her sister just recently of a drug ingestion. Actually, both sisters were together at the time, and Adelita survived. She is brought in today intoxicated on drugs and alcohol. REVIEW OF SYSTEMS: Unobtainable. Past medical history, family history, and personal social histories are unobtainable. She is known to be ALLERGIC TO TRAZODONE. It is not known if she is taking any psych medications at this time or if she is getting any counseling. PHYSICAL EXAMINATION: Blood pressure is 105/60 with a pulse of 70, respirations of 10, and she is afebrile. In general she appeared to be very lethargic. Skin color was normal. Skin was dry. Head, ears, eyes, nose, mouth and throat were normal as well as could be examined. Chest was clear. Cardiac exam demonstrated bradycardia. The abdomen was soft, nontender. Extremities were normal. IMPRESSION: 1. Drug and alcohol overdose. 2. Major depression. 3. Longstanding history of multiple drug addiction and overdoses. PLAN: 1. Bedrest. 2. Suicide precautions with a sitter. 3. Psych consult. MMDAREK / RIDGE: [id number] /
[2022-02-16] MEDS: LORazepam 2 MG/ML INJ IV PRN ×9 (00:48→22:13)
[2022-02-16] MEDS: THIAMINE 100 MG TAB PO SCH ×2 (07:46→17:44)
[2022-02-16 10:35] VITALS: BMI 30.7
[2022-02-16] MEDS: PREGABALIN 100 MG CAP PO SCH ×3 (13:21→22:13)
[2022-02-16] MEDS: ESCITALOPRAM 10 MG TAB PO SCH (13:21)
[2022-02-16] MEDS ORDERED: hydrOXYzine pamoate 25 MG CAP PO PRN (13:23)
--- NOTE | 2022-02-16 14:11 | P.CN ---
Psychiatric Consult - . Consult date: 02/16/22 Consult:: 02/16/22 12:32 IDENTIFYING DATA: This patient is a 31-year-old single female with significant history of polysubstance abuse who currently lives with her grandmother has no kids and has a public guardian Reason for consultation: Suicidal ideations HISTORY OF PRESENT ILLNESS: The patient presented to the hospital yesterday for altered mental status. Patient was intoxicated with a blood alcohol level of 460. She apparently was found sleeping in a car according to ER report with alcohol present. Patient apparently was initially uncooperative. Her UDS was negative. She has a chronic history of polysubstance abuse depression and anxiety. Patients nurse claims that patient has been going through alcohol withdrawals however has been fairly cooperative and not endorsing any suicidal thoughts. Patient currently has a sitter at her side. Patient was seen by technical publications writer at the bedside and agreeable to speak. She has a soft tone of voice. She states she has been drinking heavily recently. She states that her sister recently from an overdose and she is still grieving from it. She states that she has a history of anxiety and depression. She states that she has been drinking about a fifth of vodka a day recently. She claims that she does want to go to rehab at this time and has stopped using other drugs. She claims that she wants to live for her niece and nephew and also her family and also to get sober. She claims that she wants to get started back on her psychiatric medications while in the hospital and go through withdrawals. She states that she was caught in her friend's car and they were drinking as they were going to pick someone up. She is denying any significant withdrawal history symptoms at this time however does have some shaking. She claims that she does have nightmares at times at night her sleep has been on and off. She states that she has not been following up with [facility]. She was agreeable to be restarted back on Seroquel and Lexapro and prazosin. she states that she does have a hx of depression however is not endorsing depression at this time. She denies any Suicidal ideations, intent or plan or any homicidal ideations. She is denying any Ah or VH. PAST PSYCHIATRIC HISTORY: The patient has a history of depression, anxiety, and polysubstance abuse including methamphetamine use disorder, opiate use disorder, and other psychoactive substance use disorders. The patient was last psychiatrically admitted to the mental health unit in June 2021. The patient has had at least 10 psychiatric inpatient admissions since 2015. The patient is supposed to follow-up with community mental health however has been nonadherent with treatment. PAST MEDICAL HISTORY: Past Medical History: Seizure Disorder, Supraventricular Tachycardia (SVT) Additional Past Medical History / Comment(s): SVT with cardiac ablation, lumbar DDD, bulging lumbar disc, seizure per family 08/01/17 and 07/11/17, ETOH abuse, past hx documented cocaine/opiate/benzodiazepine disorder, migraines, sinus problems, past bilateral arm fractures/casted, past broken left ankle and leg/casted, ruptured spleen. ALLERGIES: Trazodone, lactose CHEMICAL DEPENDENCY HISTORY: Patient has a history of polysubstance abuse however most recently been mainly using alcohol. FAMILY PSYCHIATRIC/SUBSTANCE USE HISTORY: The patient's father abuse cocaine. Sister abuses Xanax. She reports her mother has abused several different substances as well. SOCIAL HISTORY: Patient was born and raised in [place], [place]. She completed high school. She is currently unemployed. She currently lives with her grandmother and has no kids and is single. She has a public guardian. MENTAL STATUS EXAM: General Appearance: Patient appears to be stated age is alert, directable, and attempts to be cooperative. Patient appears to have poor grooming wearing hospital gown with fair eye contact. Behavior: Patient is calmly lying in bed. Attempts to be cooperative. Speech: Patient's speech is fluent and nonpressured. Mood/Affect: Patient reports their mood is "alright now", affect is congruent and constricted Suicidality/Homicidality: Patient denies having any suicidal or homicidal ideation intent or plan. Perceptions: Patient denies any visual hallucinations and denies any auditory hallucinations Though content/process: There is no evidence of any delusional thought content and thought process is linear and goal-directed. Memory and concentration: AOX3, grossly intact for the purposes of this session. Can spell "WORLD" backwards Judgment and insight: chronically poor IMPRESSIONS: Alcohol use disorder, currently in withdrawal History of depressive disorder anxiety disorder r/o PTSD Borderline personality disorder history of polysubtance abuse PLAN: -At this time patient DOES NOT meet criteria for inpatient psychiatric admission. The patient is currently not reporting any suicidal or homicidal ideation, intention, and/or plan. She is currently not overtly psychotic. -Would recommend the following medication changes/additions: Continue with Lexapro 10 mg daily for mood/anxiety, added Seroquel 50 mg daily at bedtime as mood adjunct/insomnia, added prazosin 1 mg daily at bedtime for nightmares. Vistaril when necessary for anxiety. Patient is agreeable to start acamprosate 333 mg 3 times a day for alcohol cravings. -Continue with CIWA protocol with when necessary Ativan monitoring for alcohol withdrawal symptoms. -Discussed at length the option to contact the access number for inpatient substance abuse rehabilitation. Patient claims that she will make the call to the access line today for rehab intake screening. pulley worker to help patient with this number and to call rehab today. -Spoke with patient about the negative effects of alcohol and other substances o n her mental health condition, patient verbally understood and agreed and wants to cut back on her use. -at this time continue 1:1 sitter at the bedside for 24 hr more and then re- evaluate. -Psychiatry to follow patient tomorrow. -please call with any questions.
[2022-02-16] MEDS: NICOTINE 21MG/24HR PATCH TRANSDERM SCH (15:12)
[2022-02-16] MEDS: ACAMPROSATE CALCIUM 333 MG TABLET.DR PO SCH ×2 (16:51→22:13)
--- NOTE | 2022-02-16 17:55 | PN ---
PROGRESS NOTE DATE OF SERVICE: 02/16/2022 CHIEF COMPLAINT: Acute alcohol intoxication and drug abuse. HISTORY OF PRESENT ILLNESS: This lady is still quite lethargic, but she started to wake up. She is not complaining of any headache, chest pain, shortness of breath, etc. PHYSICAL EXAMINATION: Chest is clear. Cardiac exam is normal. Abdomen is soft and nontender. IMPRESSION: 1. Acute alcohol ingestion and intoxication. 2. History of narcotic abuse and addiction. 3. Major depression. PLAN: 1. Continue with detox and continue to monitor. 2. Psychiatric consult. MMODL / IJN: [id number] /
[2022-02-16] MEDS ORDERED: QUEtiapine 50 MG TAB PO SCH (21:00)
[2022-02-16] MEDS ORDERED: PRAZOSIN 1 MG CAP PO SCH (21:00)
[2022-02-16] MEDS: SODIUM CHLORIDE 0.9% 1,000 ML IV SCH (21:32)
[2022-02-17] MEDS: LORazepam 2 MG/ML INJ IV PRN ×3 (06:00→11:37)
[2022-02-17] MEDS: SODIUM CHLORIDE 0.9% 1,000 ML IV SCH (06:01)
[2022-02-17 06:02] VITALS: BP 107/68; PULSE 88; RESP 18; TEMP 97.9
[2022-02-17] MEDS: THIAMINE 100 MG TAB PO SCH ×2 (08:52→17:25)
[2022-02-17] MEDS: ACAMPROSATE CALCIUM 333 MG TABLET.DR PO SCH ×2 (08:52→15:33)
[2022-02-17] MEDS: NICOTINE 21MG/24HR PATCH TRANSDERM SCH (08:52)
[2022-02-17] MEDS: ESCITALOPRAM 10 MG TAB PO SCH (08:52)
[2022-02-17] MEDS: PREGABALIN 100 MG CAP PO SCH ×2 (08:52→15:33)
--- NOTE | 2022-02-17 12:46 | P.PN ---
Progress Note - Text Progress Note Date: 02/17/22 31-year-old single female with significant history of polysubstance abuse admitted to medical floor with alcohol intoxication. She is medically cleared. Patient has a public guardian. Patient is currently minimizing her symptoms and is requesting to go home. Due to patients history of suicidal attempts, medication non compliance with impulsive, unpredictable behaviors, poor insight and judgement, patient will transferred to [facility] [facility] until she is able to get admitted to inpatient rehab program. Assessment Alcohol use disorder, History of depressive disorder anxiety disorder r/o PTSD Borderline personality disorder history of polysubtance abuse Plan Transfer patient to [facility] [place] [facility] Continue with Lexapro 10 mg daily for mood/anxiety, Seroquel 50 mg daily at bedtime as mood adjunct/insomnia, prazosin 1 mg daily at bedtime for nightmares. Vistaril when necessary for anxiety. start acamprosate 333 mg 3 times a day for alcohol cravings. -Continue with CIWA protocol with when necessary Ativan monitoring for alcohol withdrawal symptoms.
--- NOTE | 2022-02-17 18:47 | DS ---
DISCHARGE SUMMARY CHIEF COMPLAINT: Alcohol intoxication and drug abuse. HISTORY OF PRESENT ILLNESS AND PHYSICAL EXAMINATION: Details of this lady's history and physical can be found in the initial workup. LABORATORY STUDIES: While she was in the hospital she had laboratory studies, details of which can be found in the laboratory section of her chart. COURSE IN THE HOSPITAL: After admission she was placed on bedrest, started on intravenous fluids, and she detoxed and became awake and alert fairly quickly. She was seen in consultation by Psychiatry, who recommended making some changes. She was doing well and it was felt that she could go home on February 17. She will be on the medication changes recommended by Psychiatry. She states she is going back into rehab in a week or two. FINAL DIAGNOSIS: 1. Alcohol intoxication. 2. Drug ingestion overdose. 3. Major depression. 4. Chronic history of substance abuse. MMODL / IJN: [id number] /
== END 2022-02-17 18:25 ==
LOC: EEVIPCON 12:10 → EC 12:10 → 5NMEDONC 14:18
PROVIDERS: ADMIT Family Medicine; ATTEND Family Medicine
DX: T50.901A Poisoning by unspecified drugs, medicaments and biological substances, accidental (unintentional), initial encounter (principal); F10.129 Alcohol abuse with intoxication, unspecified; Y90.8 Blood alcohol level of 240 mg/100 ml or more; F32.9 Major depressive disorder, single episode, unspecified; Z91.14 Patient's other noncompliance with medication regimen; F60.3 Borderline personality disorder; G40.909 Epilepsy, unspecified, not intractable, without status epilepticus; F41.0 Panic disorder [episodic paroxysmal anxiety]; I47.1 Supraventricular tachycardia; M51.36 Other intervertebral disc degeneration, lumbar region; M51.26 Other intervertebral disc displacement, lumbar region; G43.909 Migraine, unspecified, not intractable, without status migrainosus; Z87.828 Personal history of other (healed) physical injury and trauma; Z98.890 Other specified postprocedural states; F40.240 Claustrophobia; F41.9 Anxiety disorder, unspecified; F31.9 Bipolar disorder, unspecified; Z91.51 Personal history of suicidal behavior; Z83.6 Family history of other diseases of the respiratory system; Z82.5 Family history of asthma and other chronic lower respiratory diseases; Z98.84 Bariatric surgery status; F17.200 Nicotine dependence, unspecified, uncomplicated; Z86.19 Personal history of other infectious and parasitic diseases; Z87.81 Personal history of (healed) traumatic fracture; Z83.3 Family history of diabetes mellitus; Z88.6 Allergy status to analgesic agent; Z91.011 Allergy to milk products
CPT/HCPCS: 96376 ×3; 96361 ×2; 96375; 82075; 96374; 99285; 36415; 93005; 80053; 83605 ×2; 83690; 85025; 81001; 81025; 80306; 80143; 87635; 80179; G0378 ×3; G0480; S4990 ×2; J2060 ×3; J2310; J2405; 80320

== ENCOUNTER 2022-03-28 20:51 | Emergency (ER) | payer OTHER ==
[2022-03-28 20:59] VITALS: BP 134/103; PULSE 94; RESP 16; TEMP 98.5
--- NOTE | 2022-03-28 21:26 | ED ---
Overdose HPI - General Chief Complaint: Overdose Stated Complaint: Overdose Time Seen by Provider: 03/28/22 21:20 Source: EMS, RN notes reviewed, old records reviewed Mode of arrival: EMS Limitations: no limitations - History of Present Illness Initial Comments: This is a 31-year-old female to the emergency department for evaluation. Patient coming in with son over so. Overdose. Patient states she has stressful day with bladder injury using medication. Patient presents for evaluation of the above. Patient states she got kicked out of the house that she was living in this causes patient need to be homeless, she was trying to get her stuff when she took the overdose. It did require Narcan. She is currently awake and alert without complaint. Patient does have history of overdose. Denies any other drugs or alcohol today MD Complaint: accidental overdose -: minutes(s) Intent: want to escape How Overdose Was Discovered: family/friend present at time, called 911 Context: Intentional Overdose: relationship problems, drug/ETOH problems, recent loss Context: Accidental Overdose: wanted to get high Associated Symptoms: depression Treatments Prior to Arrival: narcan - Related Data Previous Rx's Medication Instructions Recorded Acamprosate Calcium [Campral] 666 mg PO TID 30 Days tablet 02/20/22 Escitalopram [Lexapro] 20 mg PO DAILY 30 Days tab 02/20/22 Gabapentin [Neurontin] 100 mg PO TID 30 Days cap 02/20/22 Nicotine 14Mg/24Hr Patch [Habitrol] 1 patch TRANSDERM DAILY 14 Days 02/20/22 patch Prazosin [Minipress] 2 mg PO HS 30 Days cap 02/20/22 Pregabalin [Lyrica] 100 mg PO TID 30 Days cap 02/20/22 QUEtiapine [SEROquel] 75 mg PO HS 30 Days tab 02/20/22 Thiamine [Vitamin B-1] 100 mg PO BID-W/MEALS 30 Days tab 02/20/22 Allergies Allergy/AdvReac Type Severity Reaction Status Date / Time trazodone AdvReac dizziness Verified 02/17/22 19:22 Review of Systems ROS Statement: Those systems with pertinent positive or pertinent negative responses have been documented in the HPI. ROS Other: All systems not noted in ROS Statement are negative. Past Medical History Past Medical History: Liver Disease, Seizure Disorder, Supraventricular Tachycardia (SVT) Additional Past Medical History / Comment(s): SVT with cardiac ablation, lumbar DDD, bulging lumbar disc, ETOH abuse, alcohol withdrawals, pt states she has a seizure disorder and has alcohol withdrawal seizures with last seizure in 2020, drug abuse/pt states IV drug abuse, hepatitis C, lumbar DDD/bulging discs, migraines, sinus problems, past bilateral arm fractures/casted, past broken left ankle and leg/casted, ruptured spleen with surgery. History of Any Multi-Drug Resistant Organisms: ESBL Date of last positivie culture/infection: 01/17/22 MDRO Source:: ESBL URINE Past Surgical History: Bariatric Surgery, Cardiac Ablation, EPS, Orthopedic Surgery Additional Past Surgical History / Comment(s): Cardiac ablation for SVT, gastric sleeve, spleen repair, I&D L wrist. Past Anesthesia/Blood Transfusion Reactions: No Reported Reaction Additional Past Anesthesia/Blood Transfusion Reaction / Comment(s): Pt has clausterphobia. Smoking Status: Current every day smoker - Past Family History Father History Unknown: Yes Family Medical History: COPD, Diabetes Mellitus Mother History Unknown: Yes Family Medical History: Asthma Additional Family Medical History / Comment(s): pt reports mother had cyclic vomiting issues, substance abuse history Sister(s) Family Medical History: Supraventricular Tachycardia (SVT) Additional Family Medical History / Comment(s): Sister had SVT. She is recently from overdose. General Exam Limitations: no limitations General appearance: alert, in no apparent distress Head exam: Present: atraumatic, normocephalic, normal inspection Eye exam: Present: normal appearance, PERRL, EOMI. Absent: scleral icterus, conjunctival injection, periorbital swelling ENT exam: Present: normal exam, mucous membranes moist Neck exam: Present: normal inspection. Absent: tenderness, meningismus, lymphadenopathy Respiratory exam: Present: normal lung sounds bilaterally. Absent: respiratory distress, wheezes, rales, rhonchi, stridor Cardiovascular Exam: Present: regular rate, normal rhythm, normal heart sounds. Absent: systolic murmur, diastolic murmur, rubs, gallop, clicks GI/Abdominal exam: Present: soft, normal bowel sounds. Absent: distended, tenderness, guarding, rebound, rigid Extremities exam: Present: normal inspection, full ROM, normal capillary refill. Absent: tenderness, pedal edema, joint swelling, calf tenderness Back exam: Present: normal inspection Neurological exam: Present: alert, oriented X3, CN II-XII intact Psychiatric exam: Present: normal affect, normal mood Skin exam: Present: warm, dry, intact, normal color. Absent: rash Course Vital Signs 03/28/22 20:53 Temperature 98.5 F Pulse Rate 94 Respiratory 16 Rate Blood Pressure 134/103 O2 Sat by Pulse 100 Oximetry - Reevaluation(s) Reevaluation #1: 03/28/22 22:07 medical records reviewed Reevaluation #2: 03/28/22 22:07 Patient remains awake and alert Reevaluation #3: 03/28/22 22:07 Patient informed results and questions answered Reevaluation #4: 03/28/22 22:07 Patient states she does have a safe place to go [facility] Medical Decision Making - Medical Decision Making 31 female presents today for evaluation of overdose. Patient remains awake alert and can be discharged home Disposition Clinical Impression: Depression, Polysubstance abuse, Overdose, Poisoning by opiates and related narcotics, other Disposition: HOME SELF-CARE Condition: Fair Instructions (If sedation given, give patient instructions): Adult Overdose (ED) Is patient prescribed a controlled substance at d/c from ED?: No Referrals: None,Stated [Primary Care Provider] - 1-2 days
== END 2022-03-28 22:36 | disposition home or self-care (01) ==
LOC: EC 20:51
DX: F32.A Depression, unspecified (principal); T40.601A Poisoning by unspecified narcotics, accidental (unintentional), initial encounter; F19.10 Other psychoactive substance abuse, uncomplicated; G40.909 Epilepsy, unspecified, not intractable, without status epilepticus; F17.200 Nicotine dependence, unspecified, uncomplicated; Z88.8 Allergy status to other drugs, medicaments and biological substances
CPT/HCPCS: 99284

== ENCOUNTER 2022-04-11 19:50 | Emergency (ER) | payer OTHER ==
[2022-04-11] MEDS ORDERED: LORazepam 2 MG/ML INJ IM STA ×2 (20:20→21:11)
--- NOTE | 2022-04-11 20:24 | ED ---
General Adult HPI - General Stated complaint: Overdose Time Seen by Provider: 04/11/22 20:15 Source: patient, EMS, RN notes reviewed, old records reviewed Limitations: no limitations - History of Present Illness Initial comments: 31-year-old female presenting with drug overdose. Patient admits to using methamphetamine. She is known to use multiple illicit drugs and does admit to this. She was outside of a store and passerby has had called 911 for evaluation. Patient herself has no complaints. She does have spontaneous movement throughout her entire body. No fever. No vomiting. - Related Data Home Medications Medication Instructions Recorded Confirmed Nicotine 14Mg/24Hr Patch [Habitrol] 1 patch TRANSDERM DAILY PRN 04/11/22 04/11/22 Previous Rx's Medication Instructions Recorded Acamprosate Calcium [Campral] 666 mg PO TID 30 Days tablet 02/20/22 Escitalopram [Lexapro] 20 mg PO DAILY 30 Days tab 02/20/22 Gabapentin [Neurontin] 100 mg PO TID 30 Days cap 02/20/22 Prazosin [Minipress] 2 mg PO HS 30 Days cap 02/20/22 Pregabalin [Lyrica] 100 mg PO TID 30 Days cap 02/20/22 QUEtiapine [SEROquel] 75 mg PO HS 30 Days tab 02/20/22 Thiamine [Vitamin B-1] 100 mg PO BID-W/MEALS 30 Days tab 02/20/22 Allergies Allergy/AdvReac Type Severity Reaction Status Date / Time trazodone AdvReac dizziness Verified 02/17/22 19:22 Review of Systems ROS Statement: Those systems with pertinent positive or pertinent negative responses have been documented in the HPI. ROS Other: All systems not noted in ROS Statement are negative. Past Medical History Past Medical History: Liver Disease, Seizure Disorder, Supraventricular Tachycardia (SVT) Additional Past Medical History / Comment(s): SVT with cardiac ablation, lumbar DDD, bulging lumbar disc, ETOH abuse, alcohol withdrawals, pt states she has a seizure disorder and has alcohol withdrawal seizures with last seizure in 2020, drug abuse/pt states IV drug abuse, hepatitis C, lumbar DDD/bulging discs, migraines, sinus problems, past bilateral arm fractures/casted, past broken left ankle and leg/casted, ruptured spleen with surgery. History of Any Multi-Drug Resistant Organisms: ESBL Date of last positivie culture/infection: 01/17/22 MDRO Source:: ESBL URINE Past Surgical History: Bariatric Surgery, Cardiac Ablation, EPS, Orthopedic Surgery Additional Past Surgical History / Comment(s): Cardiac ablation for SVT, gastric sleeve, spleen repair, I&D L wrist. Past Anesthesia/Blood Transfusion Reactions: No Reported Reaction Additional Past Anesthesia/Blood Transfusion Reaction / Comment(s): Pt has clausterphobia. Smoking Status: Current every day smoker - Past Family History Father History Unknown: Yes Family Medical History: COPD, Diabetes Mellitus Mother History Unknown: Yes Family Medical History: Asthma Additional Family Medical History / Comment(s): pt reports mother had cyclic vomiting issues, substance abuse history Sister(s) Family Medical History: Supraventricular Tachycardia (SVT) Additional Family Medical History / Comment(s): Sister had SVT. She is recently from overdose. General Exam General appearance: alert, anxious Head exam: Present: atraumatic, normocephalic Eye exam: Present: normal appearance, PERRL ENT exam: Present: normal exam Neck exam: Present: normal inspection Respiratory exam: Present: normal lung sounds bilaterally. Absent: respiratory distress, wheezes Cardiovascular Exam: Present: regular rate, normal rhythm GI/Abdominal exam: Present: soft. Absent: distended Extremities exam: Present: normal capillary refill Neurological exam: Present: alert, oriented X3. Absent: motor sensory deficit Psychiatric exam: Present: agitated, anxious. Absent: suicidal ideation Skin exam: Present: warm, dry, intact Course Vital Signs 04/11/22 04/11/22 04/11/22 20:29 21:45 22:35 Temperature 98.6 F Pulse Rate 110 H Respiratory 20 16 16 Rate Blood Pressure 115/66 O2 Sat by Pulse 98 Oximetry 04/11/22 04/12/22 23:35 04:34 Temperature Pulse Rate 90 Respiratory 16 18 Rate Blood Pressure 111/83 O2 Sat by Pulse 96 Oximetry Medical Decision Making - Medical Decision Making 31-year-old female who had initially presented with drug overdose. She was alert. She required sedating medications for suspected stimulant overdose likely methamphetamine. She does admit to methamphetamine and heroin use. She was observed in the emergency department and ultimately the patient was able to be discharged in stable condition. Disposition Clinical Impression: Polysubstance abuse, Methamphetamine abuse Disposition: HOME SELF-CARE Condition: Poor Instructions (If sedation given, give patient instructions): Adult Overdose (ED) Is patient prescribed a controlled substance at d/c from ED?: No Referrals: None,Stated [Primary Care Provider] - 1-2 days Bailee Jorgensen MD [STAFF PHYSICIAN] - 1-2 days
[2022-04-11 20:35] VITALS: TEMP 98.6
[2022-04-11] MEDS ORDERED: IBUPROFEN 600 MG TAB PO STA (21:11)
[2022-04-12 04:35] VITALS: BP 111/83; PULSE 90; RESP 18
== END 2022-04-12 09:51 | disposition home or self-care (01) ==
LOC: EC 19:50
DX: F15.10 Other stimulant abuse, uncomplicated (principal); F19.10 Other psychoactive substance abuse, uncomplicated; G40.909 Epilepsy, unspecified, not intractable, without status epilepticus; F17.200 Nicotine dependence, unspecified, uncomplicated; Z79.899 Other long term (current) drug therapy
CPT/HCPCS: 99284 ×2; 96372 ×2; J2060

== ENCOUNTER 2022-04-15 20:15 | Emergency (ER) | payer OTHER ==
[2022-04-15 21:27] VITALS: TEMP 97.7
--- NOTE | 2022-04-16 01:47 | ED ---
Alcohol HPI - General Chief Complaint: Alcohol Stated Complaint: ETOH Time Seen by Provider: 04/16/22 01:03 Source: patient, RN notes reviewed, old records reviewed Mode of arrival: ambulatory Limitations: no limitations - History of Present Illness Initial Comments: This is a 31-year-old female presenting with alcohol intoxication. Poor strain secondary to clinical state. Patient is known to our hospital, history also obtained from patient's chart MD Complaint: alcohol intoxication Last Drink: just [employer] -: minute(s) - Related Data Home Medications Medication Instructions Recorded Confirmed Nicotine 14Mg/24Hr Patch [Habitrol] 1 patch TRANSDERM DAILY PRN 04/11/22 04/11/22 Previous Rx's Medication Instructions Recorded Acamprosate Calcium [Campral] 666 mg PO TID 30 Days tablet 02/20/22 Escitalopram [Lexapro] 20 mg PO DAILY 30 Days tab 02/20/22 Gabapentin [Neurontin] 100 mg PO TID 30 Days cap 02/20/22 Prazosin [Minipress] 2 mg PO HS 30 Days cap 02/20/22 Pregabalin [Lyrica] 100 mg PO TID 30 Days cap 02/20/22 QUEtiapine [SEROquel] 75 mg PO HS 30 Days tab 02/20/22 Thiamine [Vitamin B-1] 100 mg PO BID-W/MEALS 30 Days tab 02/20/22 Allergies Allergy/AdvReac Type Severity Reaction Status Date / Time trazodone AdvReac dizziness Verified 02/17/22 19:22 Review of Systems ROS Statement: Those systems with pertinent positive or pertinent negative responses have been documented in the HPI. ROS Other: All systems not noted in ROS Statement are negative. Past Medical History Past Medical History: Liver Disease, Seizure Disorder, Supraventricular Tachycardia (SVT) Additional Past Medical History / Comment(s): SVT with cardiac ablation, lumbar DDD, bulging lumbar disc, ETOH abuse, alcohol withdrawals, pt states she has a seizure disorder and has alcohol withdrawal seizures with last seizure in 2020, drug abuse/pt states IV drug abuse, hepatitis C, lumbar DDD/bulging discs, migraines, sinus problems, past bilateral arm fractures/casted, past broken left ankle and leg/casted, ruptured spleen with surgery. History of Any Multi-Drug Resistant Organisms: ESBL Date of last positivie culture/infection: 01/17/22 MDRO Source:: ESBL URINE Past Surgical History: Bariatric Surgery, Cardiac Ablation, EPS, Orthopedic Surgery Additional Past Surgical History / Comment(s): Cardiac ablation for SVT, gastric sleeve, spleen repair, I&D L wrist. Past Anesthesia/Blood Transfusion Reactions: No Reported Reaction Additional Past Anesthesia/Blood Transfusion Reaction / Comment(s): Pt has clausterphobia. Past Psychological History: Anxiety, Bipolar, Depression, Panic Disorder Smoking Status: Current every day smoker Past Alcohol Use History: Daily Past Drug Use History: Unable to Obtain - Past Family History Father History Unknown: Yes Family Medical History: COPD, Diabetes Mellitus Mother History Unknown: Yes Family Medical History: Asthma Additional Family Medical History / Comment(s): pt reports mother had cyclic vomiting issues, substance abuse history Sister(s) Family Medical History: Supraventricular Tachycardia (SVT) Additional Family Medical History / Comment(s): Sister had SVT. She is recently from overdose. General Exam Limitations: no limitations General appearance: appears intoxicated, anxious Head exam: Present: atraumatic, normocephalic, normal inspection Eye exam: Present: normal appearance, PERRL, EOMI. Absent: scleral icterus, conjunctival injection, periorbital swelling ENT exam: Present: normal exam, mucous membranes moist Neck exam: Present: normal inspection. Absent: tenderness, meningismus, lymphadenopathy Respiratory exam: Present: normal lung sounds bilaterally. Absent: respiratory distress, wheezes, rales, rhonchi, stridor Cardiovascular Exam: Present: regular rate, normal rhythm, normal heart sounds. Absent: systolic murmur, diastolic murmur, rubs, gallop, clicks GI/Abdominal exam: Present: soft, normal bowel sounds. Absent: distended, tenderness, guarding, rebound, rigid Extremities exam: Present: normal inspection, full ROM, normal capillary refill. Absent: tenderness, pedal edema, joint swelling, calf tenderness Back exam: Present: normal inspection Neurological exam: Present: alert, oriented X3, CN II-XII intact Psychiatric exam: Present: normal affect, normal mood Skin exam: Present: warm, dry, intact, normal color. Absent: rash Course Vital Signs 04/15/22 04/16/22 04/16/22 21:25 02:45 04:55 Temperature 97.7 F Pulse Rate 96 68 67 Respiratory 18 18 16 Rate Blood Pressure 127/86 131/77 112/67 O2 Sat by Pulse 98 98 97 Oximetry 04/16/22 06:32 Temperature Pulse Rate 77 Respiratory 18 Rate Blood Pressure 132/67 O2 Sat by Pulse 98 Oximetry - Reevaluation(s) Reevaluation #1: 04/16/22 Medical records reviewed Reevaluation #2: 04/16/22 Patient is not homicidal or suicidal Reevaluation #3: 04/16/22 Patient will be monitored until clinically sober Medical Decision Making - Medical Decision Making 31 female with significant alcohol intoxication. Patient is monitored until clinically sober, currently able to ambulate awake and appropriate. Patient will be discharged home Disposition Clinical Impression: Depression, Alcohol intoxication Disposition: HOME SELF-CARE Condition: Fair Instructions (If sedation given, give patient instructions): Alcohol Intoxication (ED) Is patient prescribed a controlled substance at d/c from ED?: No Referrals: Tony Connolly MD [Primary Care Provider] - 1-2 days Time of Disposition: 06:50
[2022-04-16 06:34] VITALS: BP 132/67; PULSE 77; RESP 18
== END 2022-04-16 07:37 | disposition home or self-care (01) ==
LOC: EC 20:15
DX: F10.129 Alcohol abuse with intoxication, unspecified (principal); F32.A Depression, unspecified; F41.9 Anxiety disorder, unspecified; G40.909 Epilepsy, unspecified, not intractable, without status epilepticus; F17.200 Nicotine dependence, unspecified, uncomplicated; Z79.899 Other long term (current) drug therapy; Y90.9 Presence of alcohol in blood, level not specified
CPT/HCPCS: 99283

== ENCOUNTER 2023-05-14 18:39 | Observation (INO) | payer OTHER ==
[2023-05-14] MEDS ORDERED: ONDANSETRON 4 MG/2 ML VIAL IVP STA ×2 (21:18→23:11)
[2023-05-14] MEDS ORDERED: LIDOCAINE 1% INJ 10MG/ML (30 ML VIAL-PF) SQ ONE (21:18)
[2023-05-14] MEDS ORDERED: SODIUM CHLORIDE 0.9% 1,000 ML IV STA (21:18)
[2023-05-14] MEDS ORDERED: KETOROLAC 15 MG/ML 1 ML VIAL IVP STA (21:18)
[2023-05-14 21:36] LABS: Basophils % (A) 0 %; Eosinophils % (A) 0 %; HCT 42.2 % (34.0-46.0); Lymphocytes # (A) 1.1 k/uL (1.0-4.8); Lymphocytes % (A) 16 %; MCHC 33.2 g/dL (31.0-37.0); MCV 93.3 fL (80.0-100.0); Mean Platelet Volume 9.4; Monocytes # (A) 0.3 k/uL (0-1.0); Monocytes % (A) 4 %; Neutrophils % (A) 77 %; Platelet Count 202 k/uL (150-450); RBC 4.52 m/uL (3.80-5.40); RDW 12.7 % (11.5-15.5); WBC 6.5 k/uL (3.8-10.6)
[2023-05-14 21:45] LABS: Appearance,Urine Clear (Clear); Bilirubin,Urine Negative (Negative); Blood,Urine Negative (Negative); Color,Urine Yellow; Glucose,Urine (UA) Negative (Negative); Ketones,Urine Negative (Negative); Leukocyte Esterase,Urine Negative (Negative); Nitrite,Urine Negative (Negative); Protein,Urine Negative (Negative); Specific Gravity,Urine 1.012 (1.001-1.035)
[2023-05-14 21:50] LABS: ALT 65 U/L (4-34); AST 189 U/L (14-36); African American GFR (CKD) >90 (>60 ml/min/1.73 sqM); Albumin 4.3 g/dL (3.5-5.0); Alkaline Phosphatase 312 U/L (38-126); Amylase 98 U/L (30-110); Anion Gap 10 mmol/L; Blood Urea Nitrogen 11 mg/dL (7-17); C Reactive Protein 2.7 mg/dL (<1.0); Calcium 9.1 mg/dL (8.4-10.2); Carbon Dioxide 24 mmol/L (22-30); Chloride 104 mmol/L (98-107); Glucose 109 mg/dL (74-99); Lipase 249 U/L (23-300); Non-African American GFR(CKD) >90 (>60 ml/min/1.73 sqM); Potassium 4.1 mmol/L (3.5-5.1); Sodium 138 mmol/L (137-145); Total Protein 8.2 g/dL (6.3-8.2)
--- NOTE | 2023-05-14 21:54 | ED ---
Abdominal Pain HPI - General Chief Complaint: Abdominal Pain Stated Complaint: abd pain Time Seen by Provider: 05/14/23 21:01 Source: patient, EMS, RN notes reviewed Mode of arrival: EMS - History of Present Illness Initial Comments: This is a 32-year-old female who presents to the emergency department for abdominal pain. States that this started about 30 minutes prior to arrival today. The pain is in the upper to mid abdomen. Also reports nausea and dark urine. Denies any changes in bowel habits. Believes that she was told that she had gallstones at one point. Additionally, the patient is an IV drug user and has an abscess on both of her arms. States that this started about a week ago and both of them seem to be enlarging. She has started to notice drainage from the abscess on the left arm and states that it has also started to cause swelling and redness going up and down the arm. Denies any fevers, chills, sore throat, cough, dyspnea, chest pain, pa lpitations, vomiting, diarrhea, back pain, or headaches. MD Complaint: abdominal pain - Related Data Home Medications Medication Instructions Recorded Confirmed Nicotine 14Mg/24Hr Patch [Habitrol] 1 patch TRANSDERM DAILY PRN 04/11/22 04/11/22 Previous Rx's Medication Instructions Recorded Acamprosate Calcium [Campral] 666 mg PO TID 30 Days tablet 02/20/22 Escitalopram [Lexapro] 20 mg PO DAILY 30 Days tab 02/20/22 Gabapentin [Neurontin] 100 mg PO TID 30 Days cap 02/20/22 Prazosin [Minipress] 2 mg PO HS 30 Days cap 02/20/22 Pregabalin [Lyrica] 100 mg PO TID 30 Days cap 02/20/22 QUEtiapine [SEROquel] 75 mg PO HS 30 Days tab 02/20/22 Thiamine [Vitamin B-1] 100 mg PO BID-W/MEALS 30 Days tab 02/20/22 Allergies Allergy/AdvReac Type Severity Reaction Status Date / Time trazodone AdvReac dizziness Verified 05/14/23 18:46 Review of Systems ROS Statement: Those systems with pertinent positive or pertinent negative responses have been documented in the HPI. ROS Other: All systems not noted in ROS Statement are negative. Past Medical History Past Medical History: Liver Disease, Seizure Disorder, Supraventricular Tachycardia (SVT) Additional Past Medical History / Comment(s): SVT with cardiac ablation, lumbar DDD, bulging lumbar disc, ETOH abuse, alcohol withdrawals, pt states she has a seizure disorder and has alcohol withdrawal seizures with last seizure in 2020, drug abuse/pt states IV drug abuse, hepatitis C, lumbar DDD/bulging discs, migraines, sinus problems, past bilateral arm fractures/casted, past broken left ankle and leg/casted, ruptured spleen with surgery. History of Any Multi-Drug Resistant Organisms: ESBL Date of last positivie culture/infection: 01/17/22 MDRO Source:: ESBL URINE Past Surgical History: Bariatric Surgery, Cardiac Ablation, EPS, Orthopedic Surgery Additional Past Surgical History / Comment(s): Cardiac ablation for SVT, gastric sleeve, spleen repair, I&D L wrist. Past Anesthesia/Blood Transfusion Reactions: No Reported Reaction Additional Past Anesthesia/Blood Transfusion Reaction / Comment(s): Pt has clausterphobia. Past Psychological History: Anxiety, Bipolar, Depression, Panic Disorder Smoking Status: Current every day smoker Past Alcohol Use History: Daily Past Drug Use History: Unable to Obtain - Past Family History Father History Unknown: Yes Family Medical History: COPD, Diabetes Mellitus Mother History Unknown: Yes Family Medical History: Asthma Additional Family Medical History / Comment(s): pt reports mother had cyclic vomiting issues, substance abuse history Sister(s) Family Medical History: Supraventricular Tachycardia (SVT) Additional Family Medical History / Comment(s): Sister had SVT. She is recently from overdose. General Exam Limitations: no limitations General appearance: alert, in no apparent distress Head exam: Present: atraumatic, normocephalic, normal inspection Respiratory exam: Present: normal lung sounds bilaterally. Absent: respiratory distress, wheezes, rales, rhonchi, stridor Cardiovascular Exam: Present: regular rate, normal rhythm, normal heart sounds. Absent: systolic murmur, diastolic murmur, rubs, gallop, clicks GI/Abdominal exam: Present: soft, tenderness (Epigastric and mid abdomen), normal bowel sounds. Absent: distended Neurological exam: Present: alert, oriented X3, CN II-XII intact Psychiatric exam: Present: normal affect, normal mood Skin exam: Present: other (Large abscesses to the bilateral forearms. The abscess on the left has active drainage. There is also erythema and swelling with circumferential involvement going both superior and inferior to the abscess. Severe overlying tenderness.) Course Vital Signs 05/14/23 18:43 Temperature 98.1 F Pulse Rate 83 Respiratory 18 Rate Blood Pressure 143/88 O2 Sat by Pulse 98 Oximetry Medical Decision Making - Medical Decision Making This is a 32-year-old female who presents to the emergency department for abdominal pain. Was pt. sent in by a medical professional or institution? @ -No Did you speak to anyone other than the patient for history? @ -No Did you review nursing and triage notes? @ -Yes, and I agree, it is accurate with regards to the patient's symptoms. Were old charts reviewed? @ -No Differential Diagnosis? @ -Differential Abdominal Pain Women: Appendicitis, Cholecystitis, diverticulosis, ischemic bowel, pancreatitis, hepatitis, UTI, gastroenteritis, AAA, incarcerated hernia, bowel obstruction, constipation, inflammatory bowel, hepatitis, peptic ulcer disease, splenic infarction, perforated viscus, vulvitis, ovarian torsion, PID, kidney stone, pl acenta abruption, this is not meant to be an all-inclusive list EKG interpreted by me (3pts min.)? @ -Not obtained X-rays interpreted by me (1pt min.)? @ -X-ray of the bilateral forearms and left humerus obtained. My interp retation identifies no evidence of subcutaneous gas formation. CT interpreted by me (1pt min.)? @ -Not obtained U/S interpreted by me (1pt. min.)? @ -Gallbladder US obtained. My interpretation identifies cholelithiasis. What testing was considered but not performed? (CT, X-rays, U/S, labs)? Why? @ -None What meds were considered but not given? Why? @ -None Did you discuss the management of the patient with other professionals? @ -No Did you reconcile home meds? @ -No Was smoking cessation discussed for >3mins.? @ -No Was critical care preformed (if so, how long)? @ -No Were there social determinants of health that impacted care today? How? (Homelessness, low income, unemployed, alcoholism, drug addiction, transportation, low edu. Level, literacy, decrease access to med. care, detention, rehab)? @ -Alcoholism and polysubstance abuse contributing to poor overall health status and other medical complications. Was there de-escalation of care discussed even if they declined? (Discuss DNR or withdrawal of care, Hospice)? @ -No What co-morbidities impacted this encounter? (DM, HTN, Smoking, COPD, CAD, Cancer, CVA, Hep., AIDS, mental health diagnosis, sleep apnea, morbid obesity)? @ -Liver disease, alcohol abuse, polysubstance abuse Was patient admitted / discharged? @ -Admitted. Lab work obtained revealing elevated liver enzymes. The AST and ALT have both been elevated in the past, but have not been elevated to this extent in a couple of years. Additionally, her alkaline phosphatase has never been elevated. CRP is mildly elevated. Lab work is otherwise nonactionable. Gallbladder ultrasound reveals an uncomplicated cholelithiasis. However, she did continue to complain of severe abdominal pain and nausea despite multiple doses of pain and nausea medication. Additionally, with regards to the abscesses on her forearms. The abscess on the left is causing erythema, swelling, and tenderness with circumferential involvement spreading both superior and inferior to the abscess. The abscess to the right forearm has not yet started draining. Will admit the patient to medicine for further management of the abscesses on the bilateral forearms with surrounding cellulitis and symptomatic cholelithiasis. She was started on vancomycin and cefepime with blood cultures obtained prior. We did try to obtain wound cultures of the abscess on the left arm, however the drainage had stopped for the most part and she was not tolerating any sort of manipulation to try and express more discharge. Consults placed for general surgery and infectious disease. Undiagnosed new problem with uncertain prognosis? @ -None Drug Therapy requiring intensive monitoring for toxicity (Heparin, Nitro, Insulin, Cardizem)? @ -None Were any procedures done? @ -None Diagnosis/symptom? @ -Cholelithiasis, abscess on bilateral forearms, cellulitis bilateral forearms Acute, or Chronic, or Acute on Chronic? @ -Acute Uncomplicated (without systemic symptoms) or Complicated (systemic symptoms)? @ -Complicated Side effects of treatment? @ -None Exacerbation, Progression, or Severe Exacerbation] @ -Not applicable Poses a threat to life or bodily function? @ -Yes This case was discussed in detail with the attending ED physician, Dr. Moran. Presentation, findings, and treatment plan discussed in detail as well. - Lab Data Result diagrams: 05/14/23 21:24 06/27/23 21:24 Lab Results 05/14/23 05/14/23 05/14/23 Range/Units 21:24 21:24 21:24 WBC 6.5 (3.8-10.6) k/uL RBC 4.52 (3.80-5.40) m/uL Hgb 14.0 (11.4-16.0) gm/dL Hct 42.2 (34.0-46.0) % MCV 93.3 (80.0-100.0) fL MCH 31.0 (25.0-35.0) pg MCHC 33.2 (31.0-37.0) g/dL RDW 12.7 (11.5-15.5) % Plt Count 202 (150-450) k/uL MPV 9.4 Neutrophils % 77 % Lymphocytes % 16 % Monocytes % 4 % Eosinophils % 0 % Basophils % 0 % Neutrophils # 5.0 (1.3-7.7) k/uL Lymphocytes # 1.1 (1.0-4.8) k/uL Monocytes # 0.3 (0-1.0) k/uL Eosinophils # 0.0 (0-0.7) k/uL Basophils # 0.0 (0-0.2) k/uL Sodium 138 (137-145) mmol/L Potassium 4.1 (3.5-5.1) mmol/L Chloride 104 (98-107) mmol/L Carbon Dioxide 24 (22-30) mmol/L Anion Gap 10 mmol/L BUN 11 (7-17) mg/dL Creatinine 0.52 (0.52-1.04) mg/dL Est GFR (CKD-EPI)AfAm >90 (>60 ml/min/1.73 sqM) Est GFR (CKD-EPI)NonAf >90 (>60 ml/min/1.73 sqM) Glucose 109 H (74-99) mg/dL Plasma Lactic Acid Wilver (0.7-2.0) mmol/L Calcium 9.1 (8.4-10.2) mg/dL Total Bilirubin 1.0 (0.2-1.3) mg/dL AST 189 H (14-36) U/L ALT 65 H (4-34) U/L Alkaline Phosphatase 312 H (38-126) U/L C-Reactive Protein 2.7 H (<1.0) mg/dL Total Protein 8.2 (6.3-8.2) g/dL Albumin 4.3 (3.5-5.0) g/dL Amylase 98 (30-110) U/L Lipase 249 (23-300) U/L Urine Color Yellow Urine Appearance Clear (Clear) Urine pH 8.0 (5.0-8.0) Ur Specific Roosevelt 1.012 (1.001-1.035) Urine Protein Negative (Negative) Urine Glucose (UA) Negative (Negative) Urine Ketones Negative (Negative) Urine Blood Negative (Negative) Urine Nitrite Negative (Negative) Urine Bilirubin Negative (Negative) Urine Urobilinogen 6.0 (<2.0) mg/dL Ur Leukocyte Esterase Negative (Negative) Urine HCG, Qual (Not Detectd) Urine Opiates Screen (NotDetected) Ur Oxycodone Screen (NotDetected) Urine Methadone Screen (NotDetected) Ur Propoxyphene Screen (NotDetected) Ur Barbiturates Screen (NotDetected) U Tricyclic Antidepress (NotDetected) Ur Phencyclidine Scrn (NotDetected) Ur Amphetamines Screen (NotDetected) U Methamphetamines Scrn (NotDetected) U Benzodiazepines Scrn (NotDetected) Urine Cocaine Screen (NotDetected) U Marijuana (THC) Screen (NotDetected) 05/14/23 05/14/23 05/14/23 Range/Units 21:24 21:24 23:35 WBC (3.8-10.6) k/uL RBC (3.80-5.40) m/uL Hgb (11.4-16.0) gm/dL Hct (34.0-46.0) % MCV (80.0-100.0) fL MCH (25.0-35.0) pg MCHC (31.0-37.0) g/dL RDW (11.5-15.5) % Plt Count (150-450) k/uL MPV Neutrophils % % Lymphocytes % % Monocytes % % Eosinophils % % Basophils % % Neutrophils # (1.3-7.7) k/uL Lymphocytes # (1.0-4.8) k/uL Monocytes # (0-1.0) k/uL Eosinophils # (0-0.7) k/uL Basophils # (0-0.2) k/uL Sodium (137-145) mmol/L Potassium (3.5-5.1) mmol/L Chloride (98-107) mmol/L Carbon Dioxide (22-30) mmol/L Anion Gap mmol/L BUN (7-17) mg/dL Creatinine (0.52-1.04) mg/dL Est GFR (CKD-EPI)AfAm (>60 ml/min/1.73 sqM) Est GFR (CKD-EPI)NonAf (>60 ml/min/1.73 sqM) Glucose (74-99) mg/dL Plasma Lactic Acid Wilver 1.1 (0.7-2.0) mmol/L Calcium (8.4-10.2) mg/dL Total Bilirubin (0.2-1.3) mg/dL AST (14-36) U/L ALT (4-34) U/L Alkaline Phosphatase (38-126) U/L C-Reactive Protein (<1.0) mg/dL Total Protein (6.3-8.2) g/dL Albumin (3.5-5.0) g/dL Amylase (30-110) U/L Lipase (23-300) U/L Urine Color Urine Appearance (Clear) Urine pH (5.0-8.0) Ur Specific Roosevelt (1.001-1.035) Urine Protein (Negative) Urine Glucose (UA) (Negative) Urine Ketones (Negative) Urine Blood (Negative) Urine Nitrite (Negative) Urine Bilirubin (Negative) Urine Urobilinogen (<2.0) mg/dL Ur Leukocyte Esterase (Negative) Urine HCG, Qual Not Detected (Not Detectd) Urine Opiates Screen Not Detected (NotDetected) Ur Oxycodone Screen Not Detected (NotDetected) Urine Methadone Screen Not Detected (NotDetected) Ur Propoxyphene Screen Not Detected (NotDetected) Ur Barbiturates Screen Not Detected (NotDetected) U Tricyclic Antidepress Not Detected (NotDetected) Ur Phencyclidine Scrn Not Detected (NotDetected) Ur Amphetamines Screen Detected H (NotDetected) U Methamphetamines Scrn Detected H (NotDetected) U Benzodiazepines Scrn Not Detected (NotDetected) Urine Cocaine Screen Not Detected (NotDetected) U Marijuana (THC) Screen Not Detected (NotDetected) - Radiology Data Radiology results: report reviewed, image reviewed Disposition Clinical Impression: Cholelithiasis, Cellulitis of forearm, left, Abscess of right forearm, Abscess of forearm, left Disposition: ADMITTED IP TO THIS HOSP
--- NOTE | 2023-05-14 23:05 | US ---
EXAMINATION TYPE: US gallbladder DATE OF EXAM: 05/14/2023 COMPARISON: NONE CLINICAL INDICATION: Female, 32 years old with history of RUQ pain, elevated liver enzymes; RUQ pain with N/V TECHNIQUE: Multiple sonographic images of the right upper quadrant are obtained. FINDINGS: EXAM MEASUREMENTS: Liver Length: 18.3 cm Gallbladder Wall: 0.23 cm CBD: 0.53 extrahepatic cm Right Kidney: 12.5 x 5.7 x 4.4 cm DIRECTOR OF HUMAN RESOURCES NOTES: Pancreas: parts visualized appear wnl Liver: wnl Gallbladder: Multiple gallstones visualized Evidence for sonographic Gavin's sign: No CBD: wnl Right Kidney: wnl IMPRESSION: Uncomplicated cholelithiasis.
[2023-05-14] MEDS ORDERED: MORPHINE SULFATE 2 MG/ML SYRINGE IVP STA (23:11)
[2023-05-14] MEDS ORDERED: VANCOMYCIN IV PER PHARMACY 1 EACH MISC MISCELLANE PRN (23:14)
[2023-05-14] MEDS ORDERED: CEFEPIME 2 GM in SODIUM CHLORIDE 0.9% 100 ML IVPB STA (23:16)
[2023-05-14] MEDS ORDERED: VANCOMYCIN 1,500 MG in SODIUM CHLORIDE 0.9% 500 ML 500 ML IVPB STA (23:19)
--- NOTE | 2023-05-14 23:56 | XR ---
EXAMINATION TYPE: XR humerus LT DATE OF EXAM: 05/14/2023 CLINICAL HISTORY: pain TECHNIQUE: Frontal and lateral images of the left humerus are obtained. COMPARISON: None. FINDINGS: There is no acute fracture/dislocation evident. The joint spaces appear within normal limi ts. The overlying soft tissue appears unremarkable. IMPRESSION: There is no acute fracture or dislocation. ICD 10 NO FRACTURE, INITIAL knee EVALUATION
--- NOTE | 2023-05-14 23:57 | XR ---
EXAMINATION TYPE: XR forearm bilateral DATE OF EXAM: 05/14/2023 CLINICAL HISTORY: pain TECHNIQUE: 2 views of the bilateral forearms are submitted. COMPARISON: None. FINDINGS: There is no acute fracture/dislocation evident. The joint spaces appear within normal limi ts. Soft tissue swelling is noted bilaterally with ulceration. Correlate for cellulitis and/or underl kaylee abscesses. IMPRESSION: There is no acute fracture or dislocation. ICD 10 NO FRACTURE, INITIAL EVALUATION
[2023-05-14 23:58] LABS: Amphetamine Screen,Urine Detected (NotDetected); Barbiturate Screen,Urine Not Detected (NotDetected); Benzodiazepines Screen,Urine Not Detected (NotDetected); Cocaine Screen,Urine Not Detected (NotDetected); Methadone Screen, Urine Not Detected (NotDetected); Opiate Screen,Urine Not Detected (NotDetected); Oxycodone Screen, Urine Not Detected (NotDetected); Phencyclidine Screen,Urine Not Detected (NotDetected); Tricyclic Antidepressant,Urine Not Detected (NotDetected); Urn Cannabinoid Scrn Not Detected (NotDetected)
[2023-05-15] MEDS ORDERED: KETOROLAC 15 MG/ML 1 ML VIAL IVP PRN (00:18)
[2023-05-15] MEDS ORDERED: NALOXONE 0.4 MG/ML 1 ML VIAL IV PRN (00:18)
[2023-05-15] MEDS ORDERED: ONDANSETRON 4 MG/2 ML VIAL IVP PRN (00:18)
[2023-05-15] MEDS: IBUPROFEN 400 MG TAB PO PRN (01:33)
[2023-05-15] MEDS: MORPHINE SULFATE 4 MG/ML SYRINGE IV PRN ×5 (04:17→23:09)
[2023-05-15 10:14] LABS: Basophils % (A) 1 %; Eosinophils # (A) 0.1 k/uL (0-0.7); Eosinophils % (A) 2 %; HGB 12.5 gm/dL (11.4-16.0); Lymphocytes # (A) 0.9 k/uL (1.0-4.8); Lymphocytes % (A) 29 %; MCH 31.2 pg (25.0-35.0); MCHC 32.9 g/dL (31.0-37.0); MCV 94.9 fL (80.0-100.0); Mean Platelet Volume 8.4; Monocytes # (A) 0.2 k/uL (0-1.0); Monocytes % (A) 7 %; Neutrophils # (A) 1.8 k/uL (1.3-7.7); Neutrophils % (A) 59 %; Platelet Count 173 k/uL (150-450); RDW 12.9 % (11.5-15.5); WBC 3.1 k/uL (3.8-10.6)
[2023-05-15] MEDS: VANCOMYCIN 1,500 MG in SODIUM CHLORIDE 0.9% 500 ML 500 ML IVPB SCH ×2 (10:22→18:17)
[2023-05-15 10:30] LABS: ALT 98 U/L (4-34); AST 186 U/L (14-36); African American GFR (CKD) >90 (>60 ml/min/1.73 sqM); Albumin 3.3 g/dL (3.5-5.0); Alkaline Phosphatase 247 U/L (38-126); Anion Gap 6 mmol/L; Blood Urea Nitrogen 10 mg/dL (7-17); Calcium 8.3 mg/dL (8.4-10.2); Carbon Dioxide 20 mmol/L (22-30); Chloride 110 mmol/L (98-107); Globulin 3.3 g/dL; Glucose 101 mg/dL (74-99); Non-African American GFR(CKD) >90 (>60 ml/min/1.73 sqM); Potassium 4.5 mmol/L (3.5-5.1); Sodium 136 mmol/L (137-145); Total Bilirubin 0.6 mg/dL (0.2-1.3); Total Protein 6.6 g/dL (6.3-8.2)
--- NOTE | 2023-05-15 15:54 | P.GSCN ---
History of Present Illness Consult date: 05/15/23 History of present illness: CHIEF COMPLAINT: Abdominal pain HISTORY OF PRESENT ILLNESS: This is a 32-year-old female with a known history of IV drug use. She presents to the hospital with complaints of right upper quadrant abdominal pain with nausea and vomiting. Pain started yesterday afternoon. The pain actually woke her up from a nap. She describes the pain as sharp. Patient also has bilateral forearm abscesses. They have been draining. The drainage has decreased. She had a ultrasound of the abdomen completed showing uncomplicated gallstones. She is currently on IV antibiotics. She also has a known past history of alcohol abuse hepatitis C. Abdominal surgical history does include sleeve gastrectomy and spleen repair. Patient does have elevated liver enzymes but she does admit to daily drinking she drinks about a fifth a day. Last drink alcohol 2 days ago. Surgical service consulted in regards to gallstones and elevated liver enzymes. Patient denies any cardiac history. PAST MEDICAL HISTORY: Liver Disease, Seizure Disorder, Supraventricular Tachycardia (SVT), alcohol abuse with withdrawal, alcohol withdrawal seizures, IV drug abuse, hepatitis C, ruptured spleen with surgery PAST SURGICAL HISTORY: Sleeve gastrectomy, ruptured spleen with spleen repair MEDICATIONS: See below ALLERGIES: See below SOCIAL HISTORY: No illicit drug use. REVIEW OF SYSTEMS: CONSTITUTIONAL: Denies fever or chills. HEENT: Denies blurred vision, vision changes, or eye pain. Denies hemoptysis CARDIOVASCULAR: Denies chest pain or pressure. RESPIRATORY: No shortness of breath. GASTROINTESTINAL: See HPI for pertinent findings HEMATOLOGIC: Denies bleeding disorders. GENITOURINARY: Denies any blood in urine or increased urinary frequency. SKIN: Denies pruitis. Denies rash. PHYSICAL EXAM: VITAL SIGNS: Reviewed GENERAL: Well-developed in no acute distress. HEENT: No sclera icterus. Extraocular movements grossly intact. Moist buccal mucosa. Head is atraumatic, normocephalic. No nasal drainage. ABDOMEN: Soft. Nondistended. Right upper quadrant tenderness NEUROLOGIC: Alert and oriented. Cranial nerves II through XII grossly intact. Extremities: Patient has abscess on the left lateral forearm with a small amount of drainage. Area as indurated with erythema. Tender with palpation. right lateral forearm abscess no drainage noted tender with palpation. Mildly indurated. Softer per patient LABORATORY DATA: WBC 3.1 Hgb 12.5 platelets 173 Na 136 potassium 4.5 creatinine 0.54 Lactic acid 1.1 total bilirubin 0.6 AST 186 ALT 98 alk phos 247 Creatinine 2.7 Lipase 249 Urine drug screen positive for meth and amphetamines IMAGING: Ultrasound of gallbladder shows uncomplicated cholelithiasis X-ray of bilateral forearm no acute fracture-dislocation X-ray of left humerus no fracture dislocation ASSESSMENT: 1. Right upper quadrant abdominal pain with gallstones noted on ultrasound 2. Elevated liver enzymes with known history of alcohol abuse 3. IV drug abuse 4. Bilateral forearm abscesses PLAN: -Recommend Laparoscopic cholecystectomy when medically stable -Add low-fat diet -Antibiotics per infectious disease -Continue supportive care -Apply warm compresses to abscess areas -Continue to monitor Thank you for this consultation Physician Fmd Teacher note has been reviewed by physician. Signing provider agrees with the documented findings, assessment, and plan of care. Past Medical History Past Medical History: Liver Disease, Seizure Disorder, Supraventricular Tachycardia (SVT) Additional Past Medical History / Comment(s): SVT with cardiac ablation, lumbar DDD, bulging lumbar disc, ETOH abuse, alcohol withdrawals, pt states she has a seizure disorder and has alcohol withdrawal seizures with last seizure in 2020, drug abuse/pt states IV drug abuse, hepatitis C, lumbar DDD/bulging discs, migraines, sinus problems, past bilateral arm fractures/casted, past broken left ankle and leg/casted, ruptured spleen with surgery. History of Any Multi-Drug Resistant Organisms: ESBL Year Discovered:: 01/17/22 MDRO Source:: ESBL URINE Past Surgical History: Bariatric Surgery, Cardiac Ablation, EPS, Orthopedic Surgery Additional Past Surgical History / Comment(s): Cardiac ablation for SVT, gastric sleeve, spleen repair, I&D L wrist. Past Anesthesia/Blood Transfusion Reactions: No Reported Reaction Additional Past Anesthesia/Blood Transfusion Reaction / Comm: Pt has clausterphobia. Past Psychological History: Anxiety, Bipolar, Depression, Panic Disorder Smoking Status: Current every day smoker Past Alcohol Use History: Daily Past Drug Use History: Unable to Obtain - Past Family History Father History Unknown: Yes Family Medical History: COPD, Diabetes Mellitus Mother History Unknown: Yes Family Medical History: Asthma Additional Family Medical History / Comment(s): pt reports mother had cyclic vomiting issues, substance abuse history Sister(s) Family Medical History: Supraventricular Tachycardia (SVT) Additional Family Medical History / Comment(s): Sister had SVT. She is recently from overdose. Medications and Allergies Home Medications Medication Instructions Recorded Confirmed Type No Known Home Medications 05/15/23 05/15/23 History Allergies Allergy/AdvReac Type Severity Reaction Status Date / Time trazodone AdvReac dizziness Verified 05/15/23 06:59 Surgical - Exam Vital Signs Temp Pulse Resp BP Pulse Ox 98.1 F 83 18 143/88 98 05/14/23 18:43 05/14/23 18:43 05/14/23 18:43 05/14/23 18:43 05/14/23 18:43 Results - Labs 05/15/23 09:58 05/15/23 09:58 Abnormal Lab Results - Last 24 Hours (Table) 05/14/23 05/14/23 Range/Units 21:24 23:35 Glucose 109 H (74-99) mg/dL AST 189 H (14-36) U/L ALT 65 H (4-34) U/L Alkaline Phosphatase 312 H (38-126) U/L C-Reactive Protein 2.7 H (<1.0) mg/dL Ur Amphetamines Screen Detected H (NotDetected) U Methamphetamines Scrn Detected H (NotDetected) Diabetes panel 05/14/23 Range/Units 21:24 Sodium 138 (137-145) mmol/L Potassium 4.1 (3.5-5.1) mmol/L Chloride 104 (98-107) mmol/L Carbon Dioxide 24 (22-30) mmol/L BUN 11 (7-17) mg/dL Creatinine 0.52 (0.52-1.04) mg/dL Glucose 109 H (74-99) mg/dL Calcium 9.1 (8.4-10.2) mg/dL AST 189 H (14-36) U/L ALT 65 H (4-34) U/L Alkaline Phosphatase 312 H (38-126) U/L Total Protein 8.2 (6.3-8.2) g/dL Albumin 4.3 (3.5-5.0) g/dL Calcium panel 05/14/23 Range/Units 21:24 Calcium 9.1 (8.4-10.2) mg/dL Albumin 4.3 (3.5-5.0) g/dL Pituitary panel 05/14/23 Range/Units 21:24 Sodium 138 (137-145) mmol/L Potassium 4.1 (3.5-5.1) mmol/L Chloride 104 (98-107) mmol/L Carbon Dioxide 24 (22-30) mmol/L BUN 11 (7-17) mg/dL Creatinine 0.52 (0.52-1.04) mg/dL Glucose 109 H (74-99) mg/dL Calcium 9.1 (8.4-10.2) mg/dL Adrenal panel 05/14/23 Range/Units 21:24 Sodium 138 (137-145) mmol/L Potassium 4.1 (3.5-5.1) mmol/L Chloride 104 (98-107) mmol/L Carbon Dioxide 24 (22-30) mmol/L BUN 11 (7-17) mg/dL Creatinine 0.52 (0.52-1.04) mg/dL Glucose 109 H (74-99) mg/dL Calcium 9.1 (8.4-10.2) mg/dL Total Bilirubin 1.0 (0.2-1.3) mg/dL AST 189 H (14-36) U/L ALT 65 H (4-34) U/L Alkaline Phosphatase 312 H (38-126) U/L Total Protein 8.2 (6.3-8.2) g/dL Albumin 4.3 (3.5-5.0) g/dL
--- NOTE | 2023-05-15 22:27 | P.CONS ---
History of Present Illness - Reason for Consult Consult date: 05/15/23 - History of Present Illness Patient is a 32-year-old female with a past medical history significant for active IV drug use presenting to the hospital for evaluation of right upper quadrant abdominal pain nausea and vomiting patient's symptoms started the day before presentation to the hospital patient was describing the pain to be more of a 78 after no radiation patient also have a bilateral upper extremity squamous of infection with the abscess formation and cellulitis more marked to the left upper extremity the patient has recently injected patient described the pain to the left arm to be almost 10 out of 10 with no radiation mostly sharp some relief with the pain medication patient presented hospital was afebrile and no fever has been recorded subsequently patient did have a normal white count kidney function was normal liver enzymes are elevated urine was negative urine drug screen was positive for amphetamines methamphetamines patient did have cultures obtained from the left arm which is currently pending blood cultures obtained which are pending patient was started on vancomycin infectious disease was consulted for further management of antibiotic therapy General surgery is on the case for possible drainage of this abscess Past Medical History Past Medical History: Liver Disease, Seizure Disorder, Supraventricular Tachycardia (SVT) Additional Past Medical History / Comment(s): SVT with cardiac ablation, lumbar DDD, bulging lumbar disc, ETOH abuse, alcohol withdrawals, pt states she has a seizure disorder and has alcohol withdrawal seizures with last seizure in 2020, drug abuse/pt states IV drug abuse, hepatitis C, lumbar DDD/bulging discs, migraines, sinus problems, past bilateral arm fractures/casted, past broken left ankle and leg/casted, ruptured spleen with surgery. History of Any Multi-Drug Resistant Organisms: ESBL Year Discovered:: 01/17/22 MDRO Source:: ESBL URINE Past Surgical History: Bariatric Surgery, Cardiac Ablation, EPS, Orthopedic Surgery Additional Past Surgical History / Comment(s): Cardiac ablation for SVT, gastric sleeve, spleen repair, I&D L wrist. Past Anesthesia/Blood Transfusion Reactions: No Reported Reaction Additional Past Anesthesia/Blood Transfusion Reaction / Comm: Pt has clausterphobia. Past Psychological History: Anxiety, Bipolar, Depression, Panic Disorder Smoking Status: Current every day smoker Past Alcohol Use History: Daily Past Drug Use History: Unable to Obtain - Past Family History Father History Unknown: Yes Family Medical History: COPD, Diabetes Mellitus Mother History Unknown: Yes Family Medical History: Asthma Additional Family Medical History / Comment(s): pt reports mother had cyclic vomiting issues, substance abuse history Sister(s) Family Medical History: Supraventricular Tachycardia (SVT) Additional Family Medical History / Comment(s): Sister had SVT. She is recently from overdose. Medications and Allergies Home Medications Medication Instructions Recorded Confirmed Type No Known Home Medications 05/15/23 05/15/23 History Allergies Allergy/AdvReac Type Severity Reaction Status Date / Time trazodone AdvReac dizziness Verified 05/15/23 06:59 Physical Exam Vitals: Vital Signs Temp Pulse Pulse Resp BP BP Pulse Ox 05/15/23 06:55 98.3 F 76 16 104/64 100 05/15/23 02:00 18 05/15/23 01:14 97.8 F 74 16 114/71 100 05/14/23 18:43 98.1 F 83 18 143/88 98 Intake and Output 05/14/23 05/15/23 05/15/23 22:59 06:59 14:59 Intake Total 118 Balance 118 Intake: Oral 118 Other: Voiding Method Toilet Weight 77.111 kg 77.111 kg Results CBC & Chem 7: 05/16/23 07:37 05/16/23 07:37 Labs: Abnormal Lab Results - Last 24 Hours (Table) 05/14/23 05/14/23 05/15/23 Range/Units 21:24 23:35 09:58 WBC 3.1 L (3.8-10.6) k/uL Lymphocytes # 0.9 L (1.0-4.8) k/uL Glucose 109 H (74-99) mg/dL AST 189 H (14-36) U/L ALT 65 H (4-34) U/L Alkaline Phosphatase 312 H (38-126) U/L C-Reactive Protein 2.7 H (<1.0) mg/dL Ur Amphetamines Screen Detected H (NotDetected) U Methamphetamines Scrn Detected H (NotDetected) Assessment and Plan Plan: 1patient presented to hospital with acute nausea vomiting abdominal pain in this patient abdominal soft medical examination and the patient did have a gallbladder ultrasound that was indicated of uncomplicated cholelithiasis patient did have evidence of bilateral upper extremity abscess cellulitis especially left arm which is more indurated than the right 1 likely related to her injection drug use and likely from gram-positive skin delfina 2-vancomycin pharmacy to dose with a target trough of 15 while watching kidney function and Vanco trough closely. 3-await surgical drainage and deep culture We will follow on clinical condition and cultures to further adjust medication if needed Thank you for this consultation we will follow the patient along with you Time with Patient: Greater than 30
[2023-05-16] MEDS: VANCOMYCIN 1,500 MG in SODIUM CHLORIDE 0.9% 500 ML 500 ML IVPB SCH ×4 (01:51→20:26)
[2023-05-16] MEDS: MORPHINE SULFATE 4 MG/ML SYRINGE IV PRN ×4 (06:12→20:26)
[2023-05-16] MEDS ORDERED: VANCOMYCIN TROUGH DUE 1 EACH MISC MISCELLANE ONE (08:00)
[2023-05-16 09:33] LABS: ALT 70 U/L (4-34); AST 64 U/L (14-36); African American GFR (CKD) >90 (>60 ml/min/1.73 sqM); Alkaline Phosphatase 174 U/L (38-126); Anion Gap 6 mmol/L; Blood Urea Nitrogen 6 mg/dL (7-17); Calcium 8.1 mg/dL (8.4-10.2); Carbon Dioxide 21 mmol/L (22-30); Chloride 110 mmol/L (98-107); Globulin 3.1 g/dL; Glucose 96 mg/dL (74-99); Non-African American GFR(CKD) >90 (>60 ml/min/1.73 sqM); Potassium 4.2 mmol/L (3.5-5.1); Sodium 137 mmol/L (137-145); Total Bilirubin 0.3 mg/dL (0.2-1.3); Total Protein 6.1 g/dL (6.3-8.2)
[2023-05-16 10:59] LABS: Basophils # (A) 0.03 X 10*3/uL (0.00-0.10); Basophils % (A) 0.8 %; Eosinophils # (A) 0.08 X 10*3/uL (0.04-0.35); Eosinophils % (A) 2.3 %; HGB 11.3 d/dL (12.0-15.0); Lymphocytes # (A) 1.35 X 10*3/uL (0.90-5.00); Lymphocytes % (A) 38.1 %; MCH 30.8 pg (27.0-32.0); MCHC 32.3 d/dL (32.0-37.0); MCV 95.4 FL (80.0-97.0); Mean Platelet Volume 11.6 FL (9.5-12.2); Monocytes # (A) 0.27 X 10*3/uL (0.20-1.00); Monocytes % (A) 7.6 %; NRBC Per 100 WBC 0 X 10*3/uL (0.00-0.01); Neutrophils # (A) 1.79 X 10*3/uL (1.80-7.70); Neutrophils % (A) 50.6 %; Platelet Count 178 X 10*3/uL (140-440); RBC 3.67 X 10*6/uL (4.10-5.20); RDW 12.7 % (11.5-14.5); WBC 3.54 X 10*3/uL (4.50-10.00)
[2023-05-16] MEDS ORDERED: hydrOXYzine pamoate 25 MG CAP PO PRN (11:40)
[2023-05-16] MEDS: CALCIUM ACETATE 667 MG TAB PO SCH ×2 (12:56→17:40)
--- NOTE | 2023-05-16 14:07 | P.PN ---
Subjective Progress Note Date: 05/16/23 CHIEF COMPLAINT: Abdominal pain HISTORY OF PRESENT ILLNESS: Patient reports her abdominal pain has resolved. She is tolerating diet. Denies any nausea or vomiting. The abscess on her left forearm has stopped draining. It remains indurated and painful. Patient's abscess on the right arm has been draining. She was seen by infectious disease service. ID recommendations noted. Patient remains on IV antibiotics. She's afebrile. WBC is 3.54 hgb 11.3 PHYSICAL EXAM: VITAL SIGNS: Reviewed. GENERAL: Well-developed in no acute distress. HEENT: No sclera icterus. Extraocular movements grossly intact. Moist buccal mucosa. Head is atraumatic, normocephalic. ABDOMEN: Soft. Nondistended. Nontender. NEUROLOGIC: Alert and oriented. Cranial nerves II through XII grossly intact. Extremities: Left forearm abscess with no drainage. Area is indurated and tender with palpation. Right forearm abscess decrease in area of induration. Minimal drainage noted. ASSESSMENT: 1. Right upper quadrant abdominal pain with gallstones noted on ultrasound 2. Elevated liver enzymes with known history of alcohol abuse 3. IV drug abuse 4. Bilateral forearm abscesses PLAN: -Recommend Laparoscopic cholecystectomy when medically stable -Continue low-fat diet -Antibiotics per infectious disease -Continue supportive care -Apply warm compresses to abscess areas -Continue to monitor Physician Manganese Heater note has been reviewed by physician. Signing provider agrees with the documented findings, assessment, and plan of care. Objective - Vital Signs Vital signs: Vital Signs Temp 98.7 F 05/16/23 07:00 Pulse 76 05/16/23 07:00 Resp 20 05/16/23 07:00 BP 130/81 05/16/23 07:00 Pulse Ox 98 05/16/23 07:00 FiO2 Intake & Output 05/15/23 05/16/23 05/16/23 18:59 06:59 18:59 Intake Total 472 118 Output Total 600 Balance -128 118 Intake: Oral 472 118 Output: Urine 600 Other: # Voids 2 - Labs CBC & Chem 7: 05/16/23 07:37 05/16/23 07:37 Labs: Abnormal Lab Results - Last 24 Hours (Table) 05/16/23 05/16/23 Range/Units 07:37 07:37 WBC 3.54 L (4.50-10.00) X 10*3/uL RBC 3.67 L (4.10-5.20) X 10*6/uL Hgb 11.3 L (12.0-15.0) d/dL Hct 35.0 L (37.2-46.3) % Neutrophils # 1.79 L (1.80-7.70) X 10*3/uL Chloride 110 H (98-107) mmol/L Carbon Dioxide 21 L (22-30) mmol/L BUN 6 L (7-17) mg/dL Creatinine 0.46 L (0.52-1.04) mg/dL Calcium 8.1 L (8.4-10.2) mg/dL AST 64 H (14-36) U/L ALT 70 H (4-34) U/L Alkaline Phosphatase 174 H (38-126) U/L Total Protein 6.1 L (6.3-8.2) g/dL Albumin 3.0 L (3.5-5.0) g/dL Microbiology - Last 24 Hours (Table) 05/14/23 23:10 Blood Culture - Preliminary Blood 05/14/23 23:25 Blood Culture - Preliminary Blood 05/15/23 00:25 Gram Stain - Preliminary Arm - Left
--- NOTE | 2023-05-16 20:20 | P.PN ---
Subjective Progress Note Date: 05/16/23 Principal diagnosis: Arm abscess Patient is a 32-year-old female with a past medical history significant for active IV drug use presenting to the hospital for evaluation of right upper quadrant abdominal pain nausea and vomiting, patient did have ultrasound with uncomplicated cholelithiasis also noted to have a bilateral upper extremity abscess especially left arm from IV drug use. On today's evaluation that is 05/16/2023, the patient denies having any fever or any chills denies any further nausea or vomiting and no chest pain shortness of breath or cough still having swelling to the left upper extremity slightly decreased in intensity minimal drainage Objective - Vital Signs Vital signs: Vital Signs Temp 98.7 F 05/16/23 07:00 Pulse 76 05/16/23 07:00 Resp 20 05/16/23 07:00 BP 130/81 05/16/23 07:00 Pulse Ox 98 05/16/23 07:00 FiO2 Intake & Output 05/15/23 05/16/23 05/16/23 18:59 06:59 18:59 Intake Total 472 118 Output Total 600 Balance -128 118 Intake: Oral 472 118 Output: Urine 600 Other: # Voids 2 - Exam GENERAL DESCRIPTION: Middle-aged female lying in bed in no distress RESPIRATORY SYSTEM: Unlabored breathing , decreased breath sounds at bases HEART: S1 S2 regular rate and rhythm ,no loud murmurs ABDOMEN: Soft , no tenderness EXTREMITIES: Left upper extremity did have area of induration no drainage - Labs CBC & Chem 7: 05/16/23 07:37 05/16/23 07:37 Labs: Abnormal Lab Results - Last 24 Hours (Table) 05/16/23 05/16/23 Range/Units 07:37 07:37 WBC 3.54 L (4.50-10.00) X 10*3/uL RBC 3.67 L (4.10-5.20) X 10*6/uL Hgb 11.3 L (12.0-15.0) d/dL Hct 35.0 L (37.2-46.3) % Neutrophils # 1.79 L (1.80-7.70) X 10*3/uL Chloride 110 H (98-107) mmol/L Carbon Dioxide 21 L (22-30) mmol/L BUN 6 L (7-17) mg/dL Creatinine 0.46 L (0.52-1.04) mg/dL Calcium 8.1 L (8.4-10.2) mg/dL AST 64 H (14-36) U/L ALT 70 H (4-34) U/L Alkaline Phosphatase 174 H (38-126) U/L Total Protein 6.1 L (6.3-8.2) g/dL Albumin 3.0 L (3.5-5.0) g/dL Microbiology - Last 24 Hours (Table) 05/14/23 23:10 Blood Culture - Preliminary Blood 05/14/23 23:25 Blood Culture - Preliminary Blood 05/15/23 00:25 Gram Stain - Preliminary Arm - Left Assessment and Plan (1) Abscess of forearm, left Current Visit: Yes Status: Acute Code(s): L02.414 - CUTANEOUS ABSCESS OF LEFT UPPER LIMB SNOMED Code(s): 00037413310801623 (2) Abscess of right forearm Current Visit: Yes Status: Acute Code(s): L02.413 - CUTANEOUS ABSCESS OF RIGHT UPPER LIMB SNOMED Code(s): 95010799067557296 Plan: 1patient presented to hospital with acute nausea vomiting abdominal pain in this patient abdominal soft medical examination and the patient did have a gallbladder ultrasound that was indicated of uncomplicated cholelithiasis patie nt did have evidence of bilateral upper extremity abscess cellulitis especially left arm which is more indurated than the right, likely related to her injection drug use and likely from gram-positive skin delfina 2-await surgical drainage and deep culture 3-vancomycin pharmacy to dose with a target trough of 15 while watching kidney function and Vanco trough closely. Time with Patient: Less than 30
[2023-05-17] MEDS: VANCOMYCIN 1,500 MG in SODIUM CHLORIDE 0.9% 500 ML 500 ML IVPB SCH ×3 (03:23→18:36)
[2023-05-17] MEDS: MORPHINE SULFATE 4 MG/ML SYRINGE IV PRN ×5 (03:23→20:19)
[2023-05-17 06:15] LABS: African American GFR (CKD) >90 (>60 ml/min/1.73 sqM); Non-African American GFR(CKD) >90 (>60 ml/min/1.73 sqM)
[2023-05-17] MEDS: CALCIUM ACETATE 667 MG TAB PO SCH ×3 (07:59→17:57)
[2023-05-17] MEDS ORDERED: VANCOMYCIN TROUGH DUE 1 EACH MISC MISCELLANE ONE (10:00)
--- NOTE | 2023-05-17 13:56 | P.PN ---
Subjective Progress Note Date: 05/17/23 CHIEF COMPLAINT: Abdominal pain HISTORY OF PRESENT ILLNESS: Patient reports her abdominal pain has resolved. She is tolerating diet. Denies any nausea or vomiting. Patient complains of pain on the left forearm abscess. Right forearm abscess is improving. No significant drainage from the abscess. Afebrile. WBC 3.54 Patient seen and examined with Dr. Ball PHYSICAL EXAM: VITAL SIGNS: Reviewed. GENERAL: Well-developed in no acute distress. HEENT: No sclera icterus. Extraocular movements grossly intact. Moist buccal mucosa. Head is atraumatic, normocephalic. ABDOMEN: Soft. Nondistended. Nontender. NEUROLOGIC: Alert and oriented. Cranial nerves II through XII grossly intact. Extremities: Left forearm abscess with no drainage. Area is indurated and tender with palpation. No fluctuance. Right forearm abscess decrease in area of induration. ASSESSMENT: 1. Right upper quadrant abdominal pain with gallstones noted on ultrasound 2. Elevated liver enzymes with known history of alcohol abuse 3. IV drug abuse 4. Bilateral forearm abscesses PLAN: -No plans for incision and drainage of the forearm abscesses -Recommend Laparoscopic cholecystectomy when medically stable -Continue low-fat diet -Antibiotics per infectious disease -Continue supportive care -Apply warm compresses to abscess areas Physician Tailor'S Aide note has been reviewed by physician. Signing provider agrees with the documented findings, assessment, and plan of care. Objective - Vital Signs Vital signs: Vital Signs Temp 97.9 F 05/17/23 07:25 Pulse 75 05/17/23 07:25 Resp 16 05/17/23 07:25 BP 130/85 05/17/23 07:25 Pulse Ox 99 05/17/23 07:25 FiO2 Intake & Output 05/16/23 05/17/23 05/17/23 18:59 06:59 18:59 Intake Total 856 Balance 856 Intake: Intake, IV Titration 500 Amount Vancomycin 1,500 mg In 500 Sodium Chloride 0.9% 500 ml 500 ml @ 167 mls/hr IVPB Q8H [facility] Rx#: [id number] Oral 356 Other: Voiding Method Toilet # Voids 2 - Labs CBC & Chem 7: 05/16/23 07:37 05/17/23 05:49 Labs: Abnormal Lab Results - Last 24 Hours (Table) 05/16/23 05/16/23 05/16/23 Range/Units 07:37 07:37 07:37 WBC 3.54 L (4.50-10.00) X 10*3/uL RBC 3.67 L (4.10-5.20) X 10*6/uL Hgb 11.3 L (12.0-15.0) d/dL Hct 35.0 L (37.2-46.3) % Neutrophils # 1.79 L (1.80-7.70) X 10*3/uL Chloride 110 H (98-107) mmol/L Carbon Dioxide 21 L (22-30) mmol/L BUN 6 L (7-17) mg/dL Creatinine 0.46 L (0.52-1.04) mg/dL Calcium 8.1 L (8.4-10.2) mg/dL AST 64 H (14-36) U/L ALT 70 H (4-34) U/L Alkaline Phosphatase 174 H (38-126) U/L Total Protein 6.1 L (6.3-8.2) g/dL Albumin 3.0 L (3.5-5.0) g/dL Hep C IgG Ab Reactive A (Non-Reactive) Microbiology - Last 24 Hours (Table) 05/15/23 00:25 Gram Stain - Preliminary Arm - Left Wound Culture - Final 05/14/23 23:10 Blood Culture - Preliminary Blood 05/14/23 23:25 Blood Culture - Preliminary Blood
[2023-05-17] MEDS: IBUPROFEN 400 MG TAB PO PRN (18:40)
--- NOTE | 2023-05-17 21:14 | HP ---
HISTORY AND PHYSICAL CHIEF COMPLAINT: Subcutaneous abscesses of both forearms and abdominal pain. HISTORY OF PRESENT ILLNESS: This is another admission of several for this 32-year-old white female, heroin addict. She presented to the emergency room with abdominal pain, and it was found that she has gallbladder disease. She also had 2 fairly large abscesses, 1 on each forearm. REVIEW OF SYSTEMS: She denies any seizures, chest pain, fever, chills, vomiting, etc. Past medical history, family history, and personal and social histories are all otherwise unremarkable and noncontributory. She has not been seen in our office since 2020. Her family history is significant, in that, her mother used to have her and her sister do drugs with her. The mother of an overdose, and then a year or 2 ago, the sister of the same disease. We have tried to help this lady over the years, and she has been in and out of rehab, but there seems to be no hope. PHYSICAL EXAMINATION: VITAL SIGNS: Blood pressure 126/78 with a pulse of 87. Respirations 24. She is afebrile. GENERAL: She appeared to be in no acute distress. HEAD, EARS, EYES, NOSE, MOUTH, AND THROAT: Normal. CHEST: Clear. CARDIAC: Normal. No murmurs. ABDOMEN: Soft and nontender. The rest of her exam revealed numerous scars on the arms and legs from her prior drug use. She had a fairly large abscess on the each forearm. Neurologically, she is intact. IMPRESSION: 1. Subcutaneous abscesses of the right and left forearms. 2. Abdominal pain. 3. Cholecystitis. 4. Heroin addiction. PLAN: 1. Bed rest. 2. IV fluids. 3. General Surgery referral. 4. Infectious Disease referral. MMODL / IJN: [id number] /
--- NOTE | 2023-05-17 21:36 | PN ---
PROGRESS NOTE DATE OF SERVICE: 05/16/2023 LOCATION: 7. CHIEF COMPLAINT: Abdominal pain and abscesses of the forearms. HISTORY OF PRESENT ILLNESS: This lady is doing well, and the abscess on the right arm is much better. One on the left is small, tense, and painful. PHYSICAL EXAMINATION: Otherwise, normal. IMPRESSION: 1. Subcutaneous abscesses of both forearms. 2. Cholecystitis. 3. Heroin addiction. PLAN: Continue with IV antibiotics and await any further recommendations from Surgery regarding the left arm abscess. MMODL / IJN: [id number] /
--- NOTE | 2023-05-17 21:50 | PN ---
PROGRESS NOTE CHIEF COMPLAINT: Abscesses of the forearms. HISTORY OF PRESENT ILLNESS: This lady's left forearm is still quite indurated and painful. The right forearm is much better. PHYSICAL EXAMINATION: CHEST: Clear. CARDIAC: Normal. IMPRESSION: 1. Abscesses of both forearms. 2. Cholecystitis. 3. Heroin addiction. PLAN: Left forearm may have to be drained by Surgery. MMODL / IJN: [id number] /
--- NOTE | 2023-05-17 22:39 | P.PN ---
Subjective Progress Note Date: 05/17/23 Principal diagnosis: Arm abscess Patient is a 32-year-old female with a past medical history significant for active IV drug use presenting to the hospital for evaluation of right upper quadrant abdominal pain nausea and vomiting, patient did have ultrasound with uncomplicated cholelithiasis also noted to have a bilateral upper extremity abscess especially left arm from IV drug use. On today's evaluation that is 05/17/2023 patient denies having any fever or any chills, denies any further nausea vomiting left arm swelling has slightly decreased area of induration no drainage no chest pain shortness of breath or cough Objective - Vital Signs Vital signs: Vital Signs Temp 97.9 F 05/17/23 07:25 Pulse 75 05/17/23 07:25 Resp 16 05/17/23 07:25 BP 130/85 05/17/23 07:25 Pulse Ox 99 05/17/23 07:25 FiO2 Intake & Output 05/16/23 05/17/23 05/17/23 18:59 06:59 18:59 Intake Total 856 118 Balance 856 118 Intake: Intake, IV Titration 500 Amount Vancomycin 1,500 mg In 500 Sodium Chloride 0.9% 500 ml 500 ml @ 167 mls/hr IVPB Q8H [facility] Rx#: [id number] Oral 356 118 Other: Voiding Method Toilet # Voids 2 - Exam GENERAL DESCRIPTION: Middle-aged female lying in bed in no distress RESPIRATORY SYSTEM: Unlabored breathing , decreased breath sounds at bases HEART: S1 S2 regular rate and rhythm ,no loud murmurs ABDOMEN: Soft , no tenderness EXTREMITIES: Left upper extremity did have area of induration no drainage - Labs CBC & Chem 7: 05/16/23 07:37 05/17/23 05:49 Labs: Abnormal Lab Results - Last 24 Hours (Table) 05/16/23 Range/Units 07:37 Hep C IgG Ab Reactive A (Non-Reactive) Microbiology - Last 24 Hours (Table) 05/15/23 00:25 Gram Stain - Preliminary Arm - Left Wound Culture - Final 05/14/23 23:10 Blood Culture - Preliminary Blood 05/14/23 23:25 Blood Culture - Preliminary Blood Assessment and Plan (1) Abscess of forearm, left Current Visit: Yes Status: Acute Code(s): L02.414 - CUTANEOUS ABSCESS OF LEFT UPPER LIMB SNOMED Code(s): 40315685457328696 (2) Abscess of right forearm Current Visit: Yes Status: Acute Code(s): L02.413 - CUTANEOUS ABSCESS OF RIGHT UPPER LIMB SNOMED Code(s): 80831840214369961 Plan: 1patient presented to hospital with acute nausea vomiting abdominal pain in this patient abdominal soft medical examination and the patient did have a gallbladder ultrasound that was indicated of uncomplicated cholelithiasis patient did have evidence of bilateral upper extremity abscess cellulitis especially left arm which is more indurated than the right, likely related to her injection drug use and likely from gram-positive skin delfina 2-Patient benefit from surgical debridement to the left forearm abscess and deep culture. 3we will continue patient on vancomycin while waiting for the culture to finalize and monitor clinical course closely Time with Patient: Less than 30
[2023-05-18] MEDS: VANCOMYCIN 1,500 MG in SODIUM CHLORIDE 0.9% 500 ML 500 ML IVPB SCH ×2 (02:26→12:01)
[2023-05-18] MEDS: MORPHINE SULFATE 4 MG/ML SYRINGE IV PRN ×4 (02:26→17:05)
[2023-05-18] MEDS: CALCIUM ACETATE 667 MG TAB PO SCH ×3 (07:41→17:36)
[2023-05-18 08:01] VITALS: PULSE 72; RESP 15
[2023-05-18] MEDS ORDERED: VANCOMYCIN TROUGH DUE 1 EACH MISC MISCELLANE ONE (10:00)
[2023-05-18 10:59] LABS: African American GFR (CKD) >90 (>60 ml/min/1.73 sqM); Non-African American GFR(CKD) >90 (>60 ml/min/1.73 sqM)
--- NOTE | 2023-05-18 11:14 | P.PN ---
Subjective Progress Note Date: 05/18/23 Principal diagnosis: Chronic cholecystitis, arm abscess Patient states she is doing better. Both the arm pain and the abdominal pain had improved. She had slightly increased epigastric discomfort today compared to yesterday however. Minimal drainage from the abscess sites. No fevers. No CMP today. Objective - Vital Signs Vital signs: Vital Signs Temp 98.5 F 05/18/23 07:00 Pulse 72 05/18/23 07:00 Resp 15 05/18/23 07:00 BP 120/75 05/18/23 07:00 Pulse Ox 97 05/18/23 07:00 FiO2 Intake & Output 05/17/23 05/18/23 05/18/23 18:59 06:59 18:59 Intake Total 236 118 Balance 236 118 Intake: Oral 236 118 Other: Voiding Method Toilet # Voids 1 1 - Exam Abdomen: Soft, nondistended, mild epigastric tenderness Bilateral forearms with small superficial abscess and mild induration, mild tenderness - Labs CBC & Chem 7: 05/16/23 07:37 05/18/23 10:15 Labs: Microbiology - Last 24 Hours (Table) 05/14/23 23:10 Blood Culture - Preliminary Blood 05/14/23 23:25 Blood Culture - Preliminary Blood 05/15/23 00:25 Gram Stain - Preliminary Arm - Left Wound Culture - Final Assessment and Plan (1) Cholelithiasis Narrative/Plan: 32-year-old female with suspected chronic cholecystitis and bilateral arm abscesses. Continue antibiotics. Continue diet as tolerated. Check CMP level. Current Visit: Yes Status: Acute Code(s): K80.20 - CALCULUS OF GALLBLADDER W/O CHOLECYSTITIS W/O OBSTRUCTION SNOMED Code(s): 204592310
[2023-05-18 14:48] VITALS: BP 125/72; TEMP 98
--- NOTE | 2023-05-18 14:53 | P.PN ---
Subjective Progress Note Date: 05/18/23 Patient is a 32-year-old female with a past medical history significant for active IV drug use presenting to the hospital for evaluation of right upper quadrant abdominal pain nausea and vomiting, patient did have ultrasound with uncomplicated cholelithiasis also noted to have a bilateral upper extremity abscess especially left arm from IV drug use. 05/18. Patient seen and examined. States she feels much better, redness of the upper extremities has improved. REVIEW OF SYSTEMS: CONSTITUTIONAL: No fever, no malaise,. CARDIOVASCULAR: No chest pain, no palpitations, no syncope. PULMONARY: No shortness of breath, no cough, GASTROINTESTINAL: No diarrhea, no nausea, no vomiting, no abdominal pain. NEUROLOGICAL: No headaches, no weakness, PHYSICAL EXAMINATION: GENERAL: The patient is alert and oriented x3, not in any acute distress. Well developed, well nourished. HEENT: Pupils are round and equally reacting to light. EOMI. No scleral icterus. No conjunctival pallor. Normocephalic, atraumatic. No pharyngeal erythema. No thyromegaly. CARDIOVASCULAR: S1 and S2 present. No murmurs, rubs, or gallops. PULMONARY: Chest is clear to auscultation, no wheezing or crackles. ABDOMEN: Soft, nontender, nondistended, normoactive bowel sounds. No palpable organomegaly. MUSCULOSKELETAL: No joint swelling or deformity. EXTREMITIES: No cyanosis, clubbing, or pedal edema. NEUROLOGICAL: Gross neurological examination did not reveal any focal deficits. SKIN: No rashes. Assessment and plan Bilateral abscesses of forearm secondary to IV drug use Cholelithiasis Right upper quadrant abdominal pain with gallstones noted on ultrasound Elevated liver enzymes with known history of alcohol abuse Monitor vital signs Monitor CBC Monitor CMP Continue telemetry monitoring Follow-up on blood cultures Follow-up on wound cultures Continue IV vancomycin Surgery Recommend Laparoscopic cholecystectomy when medically stable Follow-up on ID recs Objective - Vital Signs Vital signs: Vital Signs Temp 98.5 F 05/18/23 07:00 Pulse 72 05/18/23 07:00 Resp 15 05/18/23 07:00 BP 120/75 05/18/23 07:00 Pulse Ox 97 05/18/23 07:00 FiO2 Intake & Output 05/17/23 05/18/23 05/18/23 18:59 06:59 18:59 Intake Total 236 118 Balance 236 118 Intake: Oral 236 118 Other: Voiding Method Toilet # Voids 1 1 - Labs CBC & Chem 7: 05/16/23 07:37 05/18/23 10:15 Labs: Microbiology - Last 24 Hours (Table) 05/14/23 23:10 Blood Culture - Preliminary Blood 05/14/23 23:25 Blood Culture - Preliminary Blood 05/15/23 00:25 Gram Stain - Preliminary Arm - Left Wound Culture - Final
[2023-05-18] MEDS ORDERED: VANCOMYCIN 1,250 MG in SODIUM CHLORIDE 0.9% 250 ML IVPB SCH (20:00)
== END 2023-05-18 18:53 | disposition left against medical advice (07) ==
LOC: EC 18:39 → 6NMEDSUR 05-15 00:20
PROVIDERS: ADMIT Family Medicine; ATTEND Family Medicine
DX: K80.20 Calculus of gallbladder without cholecystitis without obstruction (principal); R74.8 Abnormal levels of other serum enzymes; F19.10 Other psychoactive substance abuse, uncomplicated; L02.414 Cutaneous abscess of left upper limb; Z53.29 Procedure and treatment not carried out because of patient's decision for other reasons; L02.413 Cutaneous abscess of right upper limb; G40.909 Epilepsy, unspecified, not intractable, without status epilepticus; I47.1 Supraventricular tachycardia; M51.36 Other intervertebral disc degeneration, lumbar region; F10.139 Alcohol abuse with withdrawal, unspecified; K70.10 Alcoholic hepatitis without ascites; Z86.19 Personal history of other infectious and parasitic diseases; Z98.84 Bariatric surgery status; Z98.890 Other specified postprocedural states; F40.240 Claustrophobia; F41.9 Anxiety disorder, unspecified; F31.9 Bipolar disorder, unspecified; F41.0 Panic disorder [episodic paroxysmal anxiety]; F17.200 Nicotine dependence, unspecified, uncomplicated; Z83.3 Family history of diabetes mellitus; Z83.6 Family history of other diseases of the respiratory system; Z81.3 Family history of other psychoactive substance abuse and dependence; Z88.8 Allergy status to other drugs, medicaments and biological substances
CPT/HCPCS: 96376 ×5; 96366 ×4; 96361; 96365; 96375; 99285; 36415; 86803; 80053 ×3; 82150; 82565 ×2; 83605; 83690; 85025 ×3; 80202 ×2; 86140; 81003; 81025; 87040; 80306; 87070 ×2; 87205 ×2; 87077; 87186; 73090; 73060; 76705; G0378 ×4; J3370 ×4; J2270 ×5; J2405; J0692; J1885

== ENCOUNTER 2023-06-03 19:51 | Inpatient (IN) | payer OTHER ==
[2023-06-03] MEDS ORDERED: SODIUM CHLORIDE 0.9% 1,000 ML IV ONE (19:56)
[2023-06-03] MEDS ORDERED: LORazepam 2 MG/ML INJ IV STA (19:56)
--- NOTE | 2023-06-03 19:56 | ED ---
Altered Mental Status HPI - General Stated Complaint: Altered Mental Time Seen by Provider: 06/03/23 19:54 Source: RN notes reviewed, old records reviewed Limitations: no limitations - History of Present Illness Initial Comments: This is a 32-year-old female to the emergency department today for evaluation severely poor historian who is presenting to us and coming in for altered mental status. Patient is not acting appropriately but is requiring both physical and chemical sedation upon arrival to the ER patient continues to act inappropriately here in the ER history obtained from EMS and outside charting, prior hospital charts MD Complaint: altered mental status -: unknown Severity: severe Consistency of Symptoms: constant Context: alcohol abuse, drug abuse, history of similar presentation Associated Symptoms: denies other symptoms Treatments Prior to Arrival: oxygen - Related Data Previous Rx's Medication Instructions Recorded DULoxetine HCL [Cymbalta] 60 mg PO BID 15 Days #30 cap 06/06/23 Folic Acid 0.5 mg PO DAILY 30 Days #30 tab 06/06/23 Lactulose [Cephulac] 30 gm PO BID 30 Days #60 ml 06/06/23 Mirtazapine [Remeron] 15 mg PO HS 15 Days #15 tab 06/06/23 Thiamine [Vitamin B-1] 100 mg PO DAILY 30 Days #30 tab 06/06/23 Allergies Allergy/AdvReac Type Severity Reaction Status Date / Time trazodone AdvReac dizziness Verified 06/03/23 22:22 Review of Systems ROS Statement: Those systems with pertinent positive or pertinent negative responses have been documented in the HPI. ROS Other: All systems not noted in ROS Statement are negative. Past Medical History Past Medical History: Liver Disease, Seizure Disorder, Supraventricular Tachycardia (SVT) Additional Past Medical History / Comment(s): SVT with cardiac ablation, lumbar DDD, bulging lumbar disc, ETOH abuse, alcohol withdrawals, pt states she has a seizure disorder and has alcohol withdrawal seizures with last seizure in 2020, drug abuse/pt states IV drug abuse, hepatitis C, lumbar DDD/bulging discs, migraines, sinus problems, past bilateral arm fractures/casted, past broken left ankle and leg/casted, ruptured spleen with surgery. History of Any Multi-Drug Resistant Organisms: ESBL Date of last positivie culture/infection: 01/17/22 MDRO Source:: ESBL URINE Past Surgical History: Bariatric Surgery, Cardiac Ablation, EPS, Orthopedic Surgery Additional Past Surgical History / Comment(s): Cardiac ablation for SVT, gastric sleeve, spleen repair, I&D L wrist. Past Anesthesia/Blood Transfusion Reactions: No Reported Reaction Additional Past Anesthesia/Blood Transfusion Reaction / Comment(s): Pt has clausterphobia. Past Psychological History: Anxiety, Bipolar, Depression, Panic Disorder Smoking Status: Current every day smoker Past Alcohol Use History: Daily Past Drug Use History: Unable to Obtain - Past Family History Father History Unknown: Yes Family Medical History: COPD, Diabetes Mellitus Mother History Unknown: Yes Family Medical History: Asthma Additional Family Medical History / Comment(s): pt reports mother had cyclic vomiting issues, substance abuse history Sister(s) Family Medical History: Supraventricular Tachycardia (SVT) Additional Family Medical History / Comment(s): Sister had SVT. She is recently from overdose. General Exam General appearance: alert, in no apparent distress, anxious Head exam: Present: atraumatic, normocephalic, normal inspection Eye exam: Present: normal appearance, PERRL, EOMI. Absent: scleral icterus, conjunctival injection, periorbital swelling ENT exam: Present: normal exam, mucous membranes moist Neck exam: Present: normal inspection. Absent: tenderness, meningismus, lymphadenopathy Respiratory exam: Present: normal lung sounds bilaterally. Absent: respiratory distress, wheezes, rales, rhonchi, stridor Cardiovascular Exam: Present: normal rhythm, tachycardia, normal heart sounds. Absent: systolic murmur, diastolic murmur, rubs, gallop, clicks GI/Abdominal exam: Present: soft, normal bowel sounds. Absent: distended, tenderness, guarding, rebound, rigid Extremities exam: Present: normal inspection, full ROM, normal capillary refill. Absent: tenderness, pedal edema, joint swelling, calf tenderness Back exam: Present: normal inspection Neurological exam: Present: alert, oriented X3, CN II-XII intact Psychiatric exam: Present: normal affect, normal mood Skin exam: Present: warm, dry, intact, normal color. Absent: rash Course Vital Signs 06/03/23 06/03/23 06/03/23 20:23 21:16 21:58 Temperature 97.9 F Pulse Rate 140 H 117 H 108 H Pulse Rate [ Pulse Oximetery ] Respiratory 22 19 18 Rate Blood Pressure 141/95 121/95 126/80 Blood Pressure [Left Arm] O2 Sat by Pulse 98 98 96 Oximetry 06/03/23 06/04/23 06/04/23 23:37 01:19 02:00 Temperature 97.6 F Pulse Rate 99 94 Pulse Rate [ 90 Pulse Oximetery ] Respiratory 19 20 20 Rate Blood Pressure 118/79 110/73 Blood Pressure 117/78 [Left Arm] O2 Sat by Pulse 100 99 99 Oximetry - Reevaluation(s) Reevaluation #1: 06/03/23 23:53 Medical record is reviewed Reevaluation #2: 06/03/23 23:53 Patient remains significantly altered Patient needs comical sedation Reevaluation #3: 06/03/23 23:54 Patient has no change in symptoms here in the ER Reevaluation #4: 06/03/23 23:54 Was pt. sent in by a medical professional or institution? @ -no Did you speak to anyone other than the patient for history? @ -no Did you review nursing and triage notes? @ -agree Were old charts reviewed? @ -yes Differential Diagnosis? @ -prior EKG interpreted by me (3pts min.)? @ -yes X-rays interpreted by me (1pt min.)? @ -yes CT interpreted by me (1pt min.)? @ -no U/S interpreted by me (1pt. min.)? @ -no What testing was considered but not performed? (CT, X-rays, U/S, labs)? Why? @ -no What meds were considered but not given? Why? @ -no Did you discuss the management of the patient with other professionals? @ -no Did you reconcile home meds? @ -no Was smoking cessation discussed for >3mins.? @ -no Was critical care preformed (if so, how long)? @ -no Were there social determinants of health that impacted care today? How? (Homelessness, low income, unemployed, alcoholism, drug addiction, transportation, low edu. Level, literacy, decrease access to med. care, half-way, rehab)? @ -no Was there de-escalation of care discussed even if they declined? (Discuss DNR or withdrawal of care, Hospice)? @ -no What co-morbidities impacted this encounter? (DM, HTN, Smoking, COPD, CAD, Cancer, CVA, Hep., AIDS, mental health diagnosis, sleep apnea, morbid obesity)? @ -none Was patient admitted / discharged? @ -This is a 32-year-old female to the emergency department today for evaluation severely poor historian who is presenting to us and coming in for altered mental status. Patient is not acting appropriately but is requiring both physical and chemical sedation upon arrival to the ER patient continues to act inappropriately here in the ER history obtained from EMS and outside charti ng, prior hospital charts Admitted Undiagnosed new problem with uncertain prognosis? @ -no Drug Therapy requiring intensive monitoring for toxicity (Heparin, Nitro, Insulin, Cardizem)? @ -no Were any procedures done? @ -no Diagnosis/symptom? @ -Altered mental status, hepatic and cephalopathy Acute, or Chronic, or Acute on Chronic? @ -acute Uncomplicated (without systemic symptoms) or Complicated (systemic symptoms)? @ -complicated Side effects of treatment? @ -no Exacerbation, Progression, or Severe Exacerbation] @ -no Poses a threat to life or bodily function? @ -yes" causing altered mental status Reevaluation #5: 06/03/23 23:54 Differential Altered Mental Status: Hypoglycemia, DKA, hypercapnia, ETOH, overdose, CO poisoning, trauma, myxedema coma, HTN encephalopathy, infection, encephalitis, psychosis, intercranial hemorrhage, hepatic encephalopathy, meningitis, CVA, this is not meant to be an all-inclusive list - Consultations Consultation #1: Spoke with admitting physicians who agreed to admit the patient Medical Decision Making - Medical Decision Making 33 female of altered mental status, history of liver disease does appear to have recurrent hepatic encephalopathy. Weakness dehydration substance abuse, morbidl y affecting patient presentation today. - Lab Data Result diagrams: 06/07/23 05:55 06/07/23 05:55 Lab Results 06/03/23 06/03/23 06/03/23 Range/Units 20:40 20:40 20:40 WBC 7.3 (3.8-10.6) k/uL RBC 4.80 (3.80-5.40) m/uL Hgb 15.0 (11.4-16.0) gm/dL Hct 43.7 (34.0-46.0) % MCV 90.9 (80.0-100.0) fL MCH 31.1 (25.0-35.0) pg MCHC 34.2 (31.0-37.0) g/dL RDW 12.2 (11.5-15.5) % Plt Count 180 (150-450) k/uL MPV 8.8 Neutrophils % 65 % Lymphocytes % 25 % Monocytes % 6 % Eosinophils % 1 % Basophils % 0 % Neutrophils # 4.8 (1.3-7.7) k/uL Lymphocytes # 1.8 (1.0-4.8) k/uL Monocytes # 0.5 (0-1.0) k/uL Eosinophils # 0.1 (0-0.7) k/uL Basophils # 0.0 (0-0.2) k/uL PT 10.6 (9.0-12.0) sec INR 1.0 (<1.2) APTT 25.9 (22.0-30.0) sec Sodium 137 (137-145) mmol/L Potassium 3.6 (3.5-5.1) mmol/L Chloride 99 (98-107) mmol/L Carbon Dioxide 19 L (22-30) mmol/L Anion Gap 19 mmol/L BUN 28 H (7-17) mg/dL Creatinine 1.28 H (0.52-1.04) mg/dL Est GFR (CKD-EPI)AfAm 64 (>60 ml/min/1.73 sqM) Est GFR (CKD-EPI)NonAf 56 (>60 ml/min/1.73 sqM) Glucose 108 H (74-99) mg/dL Calcium 9.4 (8.4-10.2) mg/dL Total Bilirubin 2.1 H (0.2-1.3) mg/dL AST 243 H (14-36) U/L ALT 187 H (4-34) U/L Alkaline Phosphatase 129 H (38-126) U/L Ammonia (<30) umol/L Troponin I (0.000-0.034) ng/mL Total Protein 9.9 H (6.3-8.2) g/dL Albumin 5.4 H (3.5-5.0) g/dL Serum Alcohol 81 mg/dL 06/03/23 06/03/23 Range/Units 20:40 20:40 WBC (3.8-10.6) k/uL RBC (3.80-5.40) m/uL Hgb (11.4-16.0) gm/dL Hct (34.0-46.0) % MCV (80.0-100.0) fL MCH (25.0-35.0) pg MCHC (31.0-37.0) g/dL RDW (11.5-15.5) % Plt Count (150-450) k/uL MPV Neutrophils % % Lymphocytes % % Monocytes % % Eosinophils % % Basophils % % Neutrophils # (1.3-7.7) k/uL Lymphocytes # (1.0-4.8) k/uL Monocytes # (0-1.0) k/uL Eosinophils # (0-0.7) k/uL Basophils # (0-0.2) k/uL PT (9.0-12.0) sec INR (<1.2) APTT (22.0-30.0) sec Sodium (137-145) mmol/L Potassium (3.5-5.1) mmol/L Chloride (98-107) mmol/L Carbon Dioxide (22-30) mmol/L Anion Gap mmol/L BUN (7-17) mg/dL Creatinine (0.52-1.04) mg/dL Est GFR (CKD-EPI)AfAm (>60 ml/min/1.73 sqM) Est GFR (CKD-EPI)NonAf (>60 ml/min/1.73 sqM) Glucose (74-99) mg/dL Calcium (8.4-10.2) mg/dL Total Bilirubin (0.2-1.3) mg/dL AST (14-36) U/L ALT (4-34) U/L Alkaline Phosphatase (38-126) U/L Ammonia 30 H (<30) umol/L Troponin I <0.012 (0.000-0.034) ng/mL Total Protein (6.3-8.2) g/dL Albumin (3.5-5.0) g/dL Serum Alcohol mg/dL - EKG Data -: EKG Interpreted by Me (EKG is sinus a cardia 102 UT 159 QRS 90 QTC 369) Rate: tachycardia (150s on arrival) - Radiology Data Radiology results: report reviewed (CT brain is negative for acute disease), image reviewed Critical Care Time Critical Care Time: Yes Total Critical Care Time: 31 Disposition Clinical Impression: Generalized anxiety disorder, Depression, Altered mental status, Delirium due to general medical condition, Hepatic encephalopathy Disposition: ADMITTED IP TO THIS HOSP Condition: Fair Is patient prescribed a controlled substance at d/c from ED?: No Time of Disposition: 23:50
[2023-06-03 20:57] LABS: Basophils % (A) 0 %; Eosinophils # (A) 0.1 k/uL (0-0.7); Eosinophils % (A) 1 %; HCT 43.7 % (34.0-46.0); Lymphocytes # (A) 1.8 k/uL (1.0-4.8); Lymphocytes % (A) 25 %; MCH 31.1 pg (25.0-35.0); MCHC 34.2 g/dL (31.0-37.0); MCV 90.9 fL (80.0-100.0); Mean Platelet Volume 8.8; Monocytes # (A) 0.5 k/uL (0-1.0); Monocytes % (A) 6 %; Neutrophils # (A) 4.8 k/uL (1.3-7.7); Neutrophils % (A) 65 %; Platelet Count 180 k/uL (150-450); RDW 12.2 % (11.5-15.5); WBC 7.3 k/uL (3.8-10.6)
[2023-06-03 21:02] LABS: ALT 187 U/L (4-34); AST 243 U/L (14-36); African American GFR (CKD) 64 (>60 ml/min/1.73 sqM); Albumin 5.4 g/dL (3.5-5.0); Alkaline Phosphatase 129 U/L (38-126); Anion Gap 19 mmol/L; Blood Urea Nitrogen 28 mg/dL (7-17); Calcium 9.4 mg/dL (8.4-10.2); Carbon Dioxide 19 mmol/L (22-30); Chloride 99 mmol/L (98-107); Glucose 108 mg/dL (74-99); Non-African American GFR(CKD) 56 (>60 ml/min/1.73 sqM); Potassium 3.6 mmol/L (3.5-5.1); Sodium 137 mmol/L (137-145); Total Bilirubin 2.1 mg/dL (0.2-1.3); Total Protein 9.9 g/dL (6.3-8.2)
[2023-06-03 21:04] LABS: Partial Thromboplastin Time 25.9 sec (22.0-30.0); Prothrombin Time 10.6 sec (9.0-12.0)
[2023-06-03] MEDS ORDERED: LORazepam 2 MG/ML INJ IV PRN (21:04)
[2023-06-03 21:05] LABS: Alcohol 81 mg/dL
[2023-06-03] MEDS ORDERED: LORazepam 2 MG/ML INJ IV ONE (21:20)
--- NOTE | 2023-06-03 22:03 | CT ---
EXAMINATION TYPE: CT brain wo con CT DLP: 1282.4 mGycm, Automated exposure control for dose reduction was used. DATE OF EXAM: 06/03/2023 9:37 PM COMPARISON: . CLINICAL INDICATION:Female, 32 years old with history of Altered mental status, AMS TECHNIQUE: Brain: Axial CT images of the brain were obtained with coronal and sagittal reformats created and rev iewed. Contrast used: None. Oral contrast used: None. FINDINGS: Brain: Extra-axial spaces: No abnormal extra-axial fluid collections. Ventricular system: Within normal limits Cerebral parenchyma: No acute intraparenchymal hemorrhage or mass effect. The caal-white junction is well differentiated. Cerebellum: Unremarkable. Mass effect: No evidence of midline shift. Intracranial vasculature: unremarkable Soft tissues: Soft tissue edema around the left periorbital ridge. There is a right lateral scalp lac eration Calvarium/osseous structures: No depressed skull fracture. Paranasal sinuses and mastoid air cells: Mild scattered paranasal sinus disease. Visualized orbits: Orbital contents are intact. IMPRESSION: 1. No acute intracranial process. 2. Minimal left periorbital ridge soft tissue edema as well as right lateral scalp laceration.
[2023-06-03] MEDS ORDERED: ONDANSETRON 4 MG/2 ML VIAL IVP PRN (23:49)
[2023-06-03] MEDS ORDERED: NALOXONE 0.4 MG/ML 1 ML VIAL IV PRN (23:49)
[2023-06-03] MEDS ORDERED: LACTULOSE 20 GM/30 ML CUP PO ONE (23:51)
[2023-06-04] MEDS: SODIUM CHLORIDE 0.9% 1,000 ML IV SCH ×4 (00:03→21:56)
[2023-06-04 06:50] LABS: ALT 150 U/L (4-34); African American GFR (CKD) >90 (>60 ml/min/1.73 sqM); Albumin 3.9 g/dL (3.5-5.0); Anion Gap 9 mmol/L; Blood Urea Nitrogen 23 mg/dL (7-17); Carbon Dioxide 19 mmol/L (22-30); Chloride 105 mmol/L (98-107); Glucose 75 mg/dL (74-99); Non-African American GFR(CKD) >90 (>60 ml/min/1.73 sqM); Sodium 133 mmol/L (137-145); Total Bilirubin 1.9 mg/dL (0.2-1.3); Total Protein 7.2 g/dL (6.3-8.2)
[2023-06-04 06:55] LABS: Basophils % (A) 1 %; Eosinophils # (A) 0.1 k/uL (0-0.7); Eosinophils % (A) 3 %; HCT 37.3 % (34.0-46.0); HGB 12.5 gm/dL (11.4-16.0); Lymphocytes # (A) 1.3 k/uL (1.0-4.8); Lymphocytes % (A) 34 %; MCHC 33.6 g/dL (31.0-37.0); MCV 92.4 fL (80.0-100.0); Mean Platelet Volume 9.5; Monocytes # (A) 0.2 k/uL (0-1.0); Monocytes % (A) 6 %; Neutrophils % (A) 52 %; Platelet Count 117 k/uL (150-450); RBC 4.04 m/uL (3.80-5.40); RDW 12.6 % (11.5-15.5); WBC 3.9 k/uL (3.8-10.6)
[2023-06-04 07:11] LABS: AST 187 U/L (14-36); Magnesium 1.7 mg/dL (1.6-2.3); Phosphorus 4.5 mg/dL (2.5-4.5); Potassium 3.5 mmol/L (3.5-5.1)
[2023-06-04 07:12] LABS: Alkaline Phosphatase 82 U/L (38-126)
[2023-06-04] MEDS: LACTULOSE 20 GM/30 ML CUP PO SCH ×2 (07:25→22:08)
[2023-06-04] MEDS: MORPHINE SULFATE 4 MG/ML SYRINGE IV PRN (07:58)
[2023-06-04] MEDS: LORazepam 2 MG/ML INJ IV PRN ×3 (07:59→22:08)
[2023-06-04 08:36] LABS: Appearance,Urine Cloudy (Clear); Bacteria,Urine Moderate /hpf; Bilirubin,Urine Negative (Negative); Blood,Urine Small (Negative); Color,Urine Yellow; Glucose,Urine (UA) Negative (Negative); Hyaline Casts,Urine 118 /lpf (0-2); Ketones,Urine 1+ (Negative); Leukocyte Esterase,Urine Large (Negative); Mucus,Urine Few /hpf; Nitrite,Urine Negative (Negative); Protein,Urine 1+ (Negative); RBC,Urine 8 /hpf (0-5); Specific Gravity,Urine 1.027 (1.001-1.035); Squamous Epithelial Cell,Urine 4 /hpf (0-4); WBC,Urine 144 /hpf (0-5)
[2023-06-04 09:12] LABS: Amphetamine Screen,Urine Detected (NotDetected); Barbiturate Screen,Urine Not Detected (NotDetected); Benzodiazepines Screen,Urine Detected (NotDetected); Cocaine Screen,Urine Detected (NotDetected); Methadone Screen, Urine Not Detected (NotDetected); Opiate Screen,Urine Detected (NotDetected); Oxycodone Screen, Urine Not Detected (NotDetected); Phencyclidine Screen,Urine Not Detected (NotDetected); Tricyclic Antidepressant,Urine Not Detected (NotDetected); Urn Cannabinoid Scrn Detected (NotDetected)
--- NOTE | 2023-06-04 11:44 | P.CNNES ---
History of Present Illness Consult date: 06/04/23 Requesting physician: Davis Lopez Reason for Consult: ams, encephalopathy History of Present Illness: This is a 32-year-old woman who presented emergency department for altered mental status. Patient states that she is abusing drugs meth, heroin, cocaine, alcohol use. Patient states she feels depressed and anxious and that is not controlled and she has not received therapy or treatments and she did not seek help. She states that she is having around the wrong people. She denies of any focal weakness, numbness, visual disturbance. Denies of any headache. Per the patient's nurse no further confusion. She states she is homeless. Some other workup during the hospital visit consisted of: Patient is afebrile. Her AST is 243 ALTs 187. Ammonia level was 30 and the repeat is 18. Creatinine is 1.28 repeated is normalized. Calcium is 9.4. Urinalysis seems possible suggestive underlying dura tract infection Urine protein is positive for amphetamine, meth, benzo, O cane, marijuana, opiates. Serum alcohol was 81 which is considered toxic CT of the head is reported as no acute intracranial processes. Minimal left orbital ridge soft tissue edema as well as right lateral scalp laceration. I personally reviewed the CT hadn't there is no acute subacute ischemia. There is no department hemorrhage. Review of Systems Review of system: The 12 point system was reviewed and apparent positive and negative per HPI. Past Medical History Past Medical History: Liver Disease, Seizure Disorder, Supraventricular Tachycardia (SVT) Additional Past Medical History / Comment(s): SVT with cardiac ablation, lumbar DDD, bulging lumbar disc, ETOH abuse, alcohol withdrawals, pt states she has a seizure disorder and has alcohol withdrawal seizures with last seizure in 2020, drug abuse/pt states IV drug abuse, hepatitis C, lumbar DDD/bulging discs, migraines, sinus problems, past bilateral arm fractures/casted, past broken left ankle and leg/casted, ruptured spleen with surgery. History of Any Multi-Drug Resistant Organisms: ESBL Date of last positivie culture/infection: 01/17/22 MDRO Source:: ESBL URINE Past Surgical History: Bariatric Surgery, Cardiac Ablation, EPS, Orthopedic Surgery Additional Past Surgical History / Comment(s): Cardiac ablation for SVT, gastric sleeve, spleen repair, I&D L wrist. Past Anesthesia/Blood Transfusion Reactions: No Reported Reaction Additional Past Anesthesia/Blood Transfusion Reaction / Comment(s): Pt has clausterphobia. Past Psychological History: Anxiety, Bipolar, Depression, Panic Disorder Smoking Status: Current every day smoker Past Alcohol Use History: Daily Past Drug Use History: Unable to Obtain - Past Family History Father History Unknown: Yes Family Medical History: COPD, Diabetes Mellitus Mother History Unknown: Yes Family Medical History: Asthma Additional Family Medical History / Comment(s): pt reports mother had cyclic vomiting issues, substance abuse history Sister(s) Family Medical History: Supraventricular Tachycardia (SVT) Additional Family Medical History / Comment(s): Sister had SVT. She is recently from overdose. Medications and Allergies Home Medications Medication Instructions Recorded Confirmed Type No Known Home Medications 05/15/23 06/03/23 History Allergies Allergy/AdvReac Type Severity Reaction Status Date / Time trazodone AdvReac dizziness Verified 06/03/23 22:22 Physical Examination - Vital Signs Vital Signs: Vital Signs Temp Pulse Pulse Resp BP BP Pulse Ox 06/04/23 09:04 99 06/04/23 07:50 16 06/04/23 07:05 97.4 F L 83 14 120/85 99 06/04/23 02:00 97.6 F 90 20 117/78 99 06/04/23 01:19 94 20 110/73 99 06/03/23 23:37 99 19 118/79 100 06/03/23 21:58 108 H 18 126/80 96 06/03/23 21:16 117 H 19 121/95 98 06/03/23 20:23 97.9 F 140 H 22 141/95 98 FiO2 06/04/23 09:04 21 06/04/23 07:50 06/04/23 07:05 06/04/23 02:00 06/04/23 01:19 06/03/23 23:37 06/03/23 21:58 06/03/23 21:16 06/03/23 20:23 Intake and Output 06/03/23 06/04/23 06/04/23 22:59 06:59 14:59 Other: Voiding Method Bedpan Weight 72.575 kg GENERAL: The patient is lying in bed and is not in acute distress. HENT: Supple neck. No nuchal rigidity. NEUROLOGICAL: Higher mental function: Patient was initially sleep but woke-up to examination. The patient is awake, alert, oriented to self, place and time. Patient is following commands. No aphasia and no neglect. Cranial nerves: The pupils are round, equal and reactive to light and accommodation. Visual gonzalez are full to confrontation throughout. Extraocular movement is intact no nystagmus is noted. Facial sensation is normal to touch throughout. The facial strength is normal throughout. Hearing is normal bilaterally to hand rub. Tongue is midline and moved [id number] without any difficulty. No dysarthria is noted. Shoulder shrug is normal bilaterally. Motor: The strength is 5 over 5 throughout. Normal tone and bulk. Cerebellum: Normal finger to nose bilaterally. Sensation: Sensation is normal to touch throughout. Reflexes (right/left): 2+ throughout. Plantars are downgoing bilaterally. Results - Laboratory Findings CBC and BMP: 06/04/23 05:52 06/04/23 05:52 Abnormal Lab Findings: Abnormal Labs 06/03/23 06/03/23 06/04/23 20:40 20:40 05:52 Plt Count 117 L Sodium Carbon Dioxide 19 L BUN 28 H Creatinine 1.28 H Glucose 108 H Calcium Total Bilirubin 2.1 H AST 243 H ALT 187 H Alkaline Phosphatase 129 H Ammonia 30 H Total Protein 9.9 H Albumin 5.4 H Urine Appearance Urine Protein Urine Ketones Urine Blood Ur Leukocyte Esterase Urine RBC Urine WBC Urine WBC Clumps Urine Bacteria Hyaline Casts Urine Mucus Urine Opiates Screen Ur Amphetamines Screen U Methamphetamines Scrn U Benzodiazepines Scrn Urine Cocaine Screen U Marijuana (THC) Screen 06/04/23 06/04/23 06/04/23 05:52 08:00 08:00 Plt Count Sodium 133 L Carbon Dioxide 19 L BUN 23 H Creatinine Glucose Calcium 8.0 L Total Bilirubin 1.9 H AST 187 H ALT 150 H Alkaline Phosphatase Ammonia Total Protein Albumin Urine Appearance Cloudy H Urine Protein 1+ H Urine Ketones 1+ H Urine Blood Small H Ur Leukocyte Esterase Large H Urine RBC 8 H Urine WBC 144 H Urine WBC Clumps Few H Urine Bacteria Moderate H Hyaline Casts 118 H Urine Mucus Few H Urine Opiates Screen Detected H Ur Amphetamines Screen Detected H U Methamphetamines Scrn Detected H U Benzodiazepines Scrn Detected H Urine Cocaine Screen Detected H U Marijuana (THC) Screen Detected H Assessment and Plan Assessment: This is a 32-year-old woman who presented emergency department for altered mental status. She has polysubstance abuse (heroin, cocaine, meth, amphetamine, alcohol). Urinalysis seems possible suggestive of urinary tract infection. Her ammonia level was slightly elevated and that resolved after lactulose. Toxic encephalopathy (polysubstance abuse) and some component due to underly UT I--mentation improved Polysubstance abuse (heroin, cocaine, meth, amphetamine, alcohol) Alcohol use and her alcohol level on presentation was 80 Slight elevated ammonia possibly due to her positive since abuse--resolved Probable underlying acute urinary tract infection Depression (claim severe) Anxiety (claim severe) Plan: I started her on thiamine 100 mg daily. I also started on folic acid 0.5 mg daily. Patient was counseled heavily on the cessation of polysubstance use. Patient was counseled on the seeing psychiatrist/therapist as a long-term goal as an outpatient. Recommend psychiatry consultation especially since the patient stated that she has severe anxiety and depression and has not the had any evaluation as an outpatient. Currently she denied any suicidal homicidal thoughts or plans but stated had thoughts in the past. Patient is on CIWA protocol and will defer management to primary team. Will defer rest of management to primary team. The plan is discussed with patient and her nurse. There is no further neurological work-up. Will sign off. Please reconsult if needed. Time with Patient: Greater than 30
[2023-06-04] MEDS: FOLIC ACID 1 MG TAB PO SCH (12:06)
[2023-06-04] MEDS: THIAMINE 100 MG TAB PO SCH (12:06)
--- NOTE | 2023-06-04 15:43 | P.CONS ---
History of Present Illness - Reason for Consult Consult date: 06/04/23 hepatic encephalopathy Requesting physician: Davis Lopez - Chief Complaint confusion - History of Present Illness This is a 32-year-old female who according to documentation came into the emergency department for confusion. Patient is currently very lethargic states she was just given medication. She is a poor historian and not giving any information at this time. She keeps drifting back and forth into sleep. She is oriented 3 when awake. History obtained from chart. Patient has a long- standing history of alcohol and drug abuse, history of seizure disorder, liver disease, and. According to chart patient was recently had a positive hepatitis C antibody. Patient does state that she is still using IV drugs and drinking. Patient urine drug screen was positive for opiates, amphetamines, methamphetamines, benzodiazepines, cocaine, and THC. Patient's serum alcohol level also 81. Admitting ammonia level 30. Gastroenterology was consulted for hepatic encephalopathy. She had a Brain CT reporting no acute intracranial process. Minimal left periorbital soft tissue edema as well as right lateral scalp laceration. Labs: WBC 3.9 hemoglobin 12.5 hematocrit 37 platelet count 117,000 INR 1.0 sodium 133 potassium 3.5 nightly 23 creatinine 0.5 total bilirubin 1.9 AST 187 ALT 150 alkaline phosphatase 82 ammonia 18 Review of Systems ROS unobtainable: due to mental status Past Medical History Past Medical History: Liver Disease, Seizure Disorder, Supraventricular Tachycardia (SVT) Additional Past Medical History / Comment(s): SVT with cardiac ablation, lumbar DDD, bulging lumbar disc, ETOH abuse, alcohol withdrawals, pt states she has a seizure disorder and has alcohol withdrawal seizures with last seizure in 2020, drug abuse/pt states IV drug abuse, hepatitis C, lumbar DDD/bulging discs, migraines, sinus problems, past bilateral arm fractures/casted, past broken left ankle and leg/casted, ruptured spleen with surgery. History of Any Multi-Drug Resistant Organisms: ESBL Year Discovered:: 01/17/22 MDRO Source:: ESBL URINE Past Surgical History: Bariatric Surgery, Cardiac Ablation, EPS, Orthopedic Surgery Additional Past Surgical History / Comment(s): Cardiac ablation for SVT, gastric sleeve, spleen repair, I&D L wrist. Past Anesthesia/Blood Transfusion Reactions: No Reported Reaction Additional Past Anesthesia/Blood Transfusion Reaction / Comm: Pt has clauste rphobia. Past Psychological History: Anxiety, Bipolar, Depression, Panic Disorder Smoking Status: Current every day smoker Past Alcohol Use History: Daily Past Drug Use History: Unable to Obtain - Past Family History Father History Unknown: Yes Family Medical History: COPD, Diabetes Mellitus Mother History Unknown: Yes Family Medical History: Asthma Additional Family Medical History / Comment(s): pt reports mother had cyclic vomiting issues, substance abuse history Sister(s) Family Medical History: Supraventricular Tachycardia (SVT) Additional Family Medical History / Comment(s): Sister had SVT. She is recently from overdose. Medications and Allergies Home Medications Medication Instructions Recorded Confirmed Type No Known Home Medications 05/15/23 06/03/23 History Allergies Allergy/AdvReac Type Severity Reaction Status Date / Time trazodone AdvReac dizziness Verified 06/03/23 22:22 Physical Exam Vitals: Vital Signs Temp Pulse Pulse Resp BP BP Pulse Ox 06/04/23 09:04 99 06/04/23 07:05 97.4 F L 83 14 120/85 99 06/04/23 02:00 97.6 F 90 20 117/78 99 06/04/23 01:19 94 20 110/73 99 06/03/23 23:37 99 19 118/79 100 06/03/23 21:58 108 H 18 126/80 96 06/03/23 21:16 117 H 19 121/95 98 06/03/23 20:23 97.9 F 140 H 22 141/95 98 FiO2 06/04/23 09:04 21 06/04/23 07:05 06/04/23 02:00 06/04/23 01:19 06/03/23 23:37 06/03/23 21:58 06/03/23 21:16 06/03/23 20:23 Intake and Output 06/03/23 06/04/23 06/04/23 22:59 06:59 14:59 Other: Weight 72.575 kg General appearance: The patient is lethargic, appears in no acute distress. HET: Head is normocephalic and atraumatic. Neck: Supple without lymphadenopathy. Trachea midline. Heart: S1 S2. Regular rate and rhythm. Lungs: Clear to auscultation. Abdomen: Soft, nontender, nondistended. No guarding or rigidity. Skin: No rashes. No jaundice. Extremities: Normal skin color and turgor. No pedal edema. Neurological: No focal deficits. Very lethargic, but arousable and oriented x3. Results CBC & Chem 7: 06/04/23 05:52 06/04/23 05:52 Labs: Abnormal Lab Results - Last 24 Hours (Table) 06/03/23 06/03/23 06/04/23 Range/Units 20:40 20:40 05:52 Plt Count 117 L (150-450) k/uL Sodium (137-145) mmol/L Carbon Dioxide 19 L (22-30) mmol/L BUN 28 H (7-17) mg/dL Creatinine 1.28 H (0.52-1.04) mg/dL Glucose 108 H (74-99) mg/dL Calcium (8.4-10.2) mg/dL Total Bilirubin 2.1 H (0.2-1.3) mg/dL AST 243 H (14-36) U/L ALT 187 H (4-34) U/L Alkaline Phosphatase 129 H (38-126) U/L Ammonia 30 H (<30) umol/L Total Protein 9.9 H (6.3-8.2) g/dL Albumin 5.4 H (3.5-5.0) g/dL Urine Appearance (Clear) Urine Protein (Negative) Urine Ketones (Negative) Urine Blood (Negative) Ur Leukocyte Esterase (Negative) Urine RBC (0-5) /hpf Urine WBC (0-5) /hpf Urine WBC Clumps (None) /hpf Urine Bacteria (None) /hpf Hyaline Casts (0-2) /lpf Urine Mucus (None) /hpf Urine Opiates Screen (NotDetected) Ur Amphetamines Screen (NotDetected) U Methamphetamines Scrn (NotDetected) U Benzodiazepines Scrn (NotDetected) Urine Cocaine Screen (NotDetected) U Marijuana (THC) Screen (NotDetected) 06/04/23 06/04/23 06/04/23 Range/Units 05:52 08:00 08:00 Plt Count (150-450) k/uL Sodium 133 L (137-145) mmol/L Carbon Dioxide 19 L (22-30) mmol/L BUN 23 H (7-17) mg/dL Creatinine (0.52-1.04) mg/dL Glucose (74-99) mg/dL Calcium 8.0 L (8.4-10.2) mg/dL Total Bilirubin 1.9 H (0.2-1.3) mg/dL AST 187 H (14-36) U/L ALT 150 H (4-34) U/L Alkaline Phosphatase (38-126) U/L Ammonia (<30) umol/L Total Protein (6.3-8.2) g/dL Albumin (3.5-5.0) g/dL Urine Appearance Cloudy H (Clear) Urine Protein 1+ H (Negative) Urine Ketones 1+ H (Negative) Urine Blood Small H (Negative) Ur Leukocyte Esterase Large H (Negative) Urine RBC 8 H (0-5) /hpf Urine WBC 144 H (0-5) /hpf Urine WBC Clumps Few H (None) /hpf Urine Bacteria Moderate H (None) /hpf Hyaline Casts 118 H (0-2) /lpf Urine Mucus Few H (None) /hpf Urine Opiates Screen Detected H (NotDetected) Ur Amphetamines Screen Detected H (NotDetected) U Methamphetamines Scrn Detected H (NotDetected) U Benzodiazepines Scrn Detected H (NotDetected) Urine Cocaine Screen Detected H (NotDetected) U Marijuana (THC) Screen Detected H (NotDetected) Assessment and Plan (1) Hepatic encephalopathy Narrative/Plan: 2-year-old female with known history of alcohol abuse and IV drug user presented to the emergency department with altered mental status changes. Difficult to obtain HPI and past medical history due to patient's mentation. She is in and out of sleep however when she was awake she was oriented 3. Not willing to giv e much of a history. States that she is still drinking and still using drugs. Denies any knowledge of cirrhosis of the liver. Patient had mild elevation of ammonia at 30, LFTs elevated consistent with underlying liver disease. However unclear if this is the cause of patient's altered mental status as patient has multiple drugs in her system including serum alcohol, opiates, amphetamines, methamphetamines, benzodiazepines, cocaine, and marijuana. We'll continue with lactulose. Current Visit: Yes Status: Acute Code(s): K76.82 - HEPATIC ENCEPHALOPATHY SNOMED Code(s): 46956080 (2) Elevated LFTs Narrative/Plan: The patient with long-standing history of alcohol abuse, polysubstance abuse and IV drug use. Patient with recent hepatitis C positive antibody on 05/16/2023. LFTs slightly elevated likely related to underlying alcoholic liver disease and hepatitis C. Patient also had gallbladder ultrasound done on 05/14/2023 with reported normal liver. Current Visit: Yes Status: Acute Code(s): R79.89 - OTHER SPECIFIED ABNORMAL FINDINGS OF BLOOD CHEMISTRY SNOMED Code(s): 962089928 (3) Hepatitis C antibody test positive Current Visit: Yes Status: Acute Code(s): R76.8 - OTHER SPECIFIED ABNORMAL IMMUNOLOGICAL FINDINGS IN SERUM SNOMED Code(s): 568611998 (4) Alcohol use disorder Current Visit: Yes Status: Acute Priority: High Code(s): QCJ2830 - SNOMED Code(s): 0822725 (5) Altered mental status Current Visit: Yes Status: Acute Code(s): R41.82 - ALTERED MENTAL STATUS, UNSPECIFIED SNOMED Code(s): 956870414 (6) Polysubstance abuse Current Visit: No Status: Acute Priority: Medium Code(s): F19.10 - OTHER PSYCHOACTIVE SUBSTANCE ABUSE, UNCOMPLICATED SNOMED Code(s): 703869737 Plan: 1. Continue symptomatic and supportive care 2. Continue lactulose 3. Repeat CBC, CMP, ammonia level 4. Hepatitis C genotype and quantitative ordered 5. Await recommendations from neurology 6. Recommend alcohol and illicit drug abstinence Thank you for this consultation, we will continue to follow Dr. Efra Hernandez I agree with the dictator's note, documented as a scribe by Meg Lee.
[2023-06-05] MEDS: MORPHINE SULFATE 4 MG/ML SYRINGE IV PRN ×4 (00:03→22:02)
--- NOTE | 2023-06-05 01:21 | HP ---
HISTORY AND PHYSICAL HISTORY OF PRESENT ILLNESS: A 32-year-old white female, came in for altered mental status. She has polysubstance abuse, elevated ammonia levels, elevated bilirubin. She says that bilirubin has decreased from 2.7 to 1.7. MEDICATIONS: Negative. ALLERGIES: Trazodone. PAST MEDICAL HISTORY: Liver disease, seizure disorder, SVT, alcohol withdrawals, alcohol abuse, cardiac ablation, lumbar degenerative disk disease, drug abuse, anxiety, bipolar depression, panic disorder. PAST SURGICAL HISTORY: Cataract surgery, cardiac ablation, orthopedic surgery. SOCIAL HISTORY: Current everyday smoker, multiple polysubstance abuse. FAMILY HISTORY: See old chart. REVIEW OF SYSTEMS: A 14-point review of systems otherwise negative. PHYSICAL EXAMINATION: VITAL SIGNS: Temperature 97.9, pulse 108 to 140, respiratory rate 18 to 22, blood pressure 120s to 140s over 90s. CARDIOVASCULAR: S1, S2. LUNGS: Transmitted upper airway sounds. HEMATOLOGY: Negative Homans. PSYCH: Fair mood and affect. NEUROLOGIC: Alert and oriented x3. ASSESSMENT: Prerenal azotemia, dehydration, polysubstance abuse, polysubstance withdrawal, elevated ammonia level, elevated bilirubin, suspect acute biliary dyskinesia versus severe substance abuse, liver damage. Elevated liver enzymes as mentioned above. Hyperproteinemia. Negative troponins. Elevated secondary to liver damage. EKG sinus tachycardia. Delirium secondary to medical condition, alcohol use, hepatic encephalopathy, GI consult, Neurology consult, Surgical consult with Dr. Bosch. Prognosis guarded. MMODL / IJN: [id number] /
[2023-06-05] MEDS: LORazepam 2 MG/ML INJ IV PRN ×3 (05:10→17:29)
[2023-06-05 08:52] LABS: Basophils # (A) 0.01 X 10*3/uL (0.00-0.10); Basophils % (A) 0.3 %; Eosinophils # (A) 0.11 X 10*3/uL (0.04-0.35); Eosinophils % (A) 3.2 %; HCT 34.7 % (37.2-46.3); HGB 11.6 d/dL (12.0-15.0); Immature Grans, Automated 0 %; Lymphocytes % (A) 43.6 %; MCH 30.8 pg (27.0-32.0); MCHC 33.4 d/dL (32.0-37.0); Mean Platelet Volume 11.5 FL (9.5-12.2); Monocytes % (A) 8.7 %; NRBC Per 100 WBC 0 X 10*3/uL (0.00-0.01); Neutrophils # (A) 1.52 X 10*3/uL (1.80-7.70); Neutrophils % (A) 44.2 %; Platelet Count 112 X 10*3/uL (140-440); RBC 3.77 X 10*6/uL (4.10-5.20); RDW 12.3 % (11.5-14.5); WBC 3.44 X 10*3/uL (4.50-10.00)
[2023-06-05] MEDS: THIAMINE 100 MG TAB PO SCH (09:19)
[2023-06-05] MEDS: FOLIC ACID 1 MG TAB PO SCH (09:20)
--- NOTE | 2023-06-05 09:21 | NM ---
EXAMINATION TYPE: NM hepatobiliary w CCK DATE OF EXAM: 06/05/2023 COMPARISON: NONE INDICATION: Cholecystitis TECHNIQUE: After the intravenous administration of 4.4 mCi Tc 99m Mebrofenin hepatobiliary scintigrap hy is performed. Images were obtained immediately post injection. FINDINGS: There is prompt uptake and excretion of radiotracer by the liver. Extrahepatic ducts are identified at 4 minutes. The gallbladder is visualized within 44 minutes. Small bowel activity is noted within 10 minutes. At one hour CCK was administered, patient was injected with 1.5 mcg of Kinevac, and gallbladder eject ion fraction is calculated at 54 %, which is in the normal range.. (Normal >35% and <80%.). IMPRESSION: 1. No cystic duct obstruction evident. 2. Normal ejection fraction.
[2023-06-05] MEDS: LACTULOSE 20 GM/30 ML CUP PO SCH ×2 (09:22→22:02)
[2023-06-05 09:47] LABS: ALT 120 U/L (8-44); AST 110 U/L (13-35); Albumin 3.6 d/dL (3.8-4.9); Alkaline Phosphatase 86 U/L (41-126); BUN/Creat Ratio 28.83 Ratio (12.00-20.00); Blood Urea Nitrogen 17.3 mg/dL (9.0-27.0); Calcium 8.4 mg/dL (8.7-10.3); Carbon Dioxide 20.4 mmol/L (21.6-31.8); Chloride 105 mmol/L (96-109); Globulin 2.4 d/dL (1.6-3.3); Glucose 83 mg/dL (70-110); Potassium 3.6 mmol/L (3.5-5.5); Sodium 136 mmol/L (135-145); Total Bilirubin 0.7 mg/dL (0.3-1.2)
--- NOTE | 2023-06-05 11:21 | P.GSCN ---
History of Present Illness Consult date: 06/05/23 History of present illness: CHIEF COMPLAINT: Altered mental status Reason for consult cholecystitis HISTORY OF PRESENT ILLNESS: This is a 32-year-old female who initially presented to the hospital with altered mental status. Patient apparently had been partying she had alcohol, and meth yesterday. Patient has been seen by neurology and diagnosed with toxic encephalopathy due to polysubstance abuse and possible underlying UTI. Patient is awake and alert today. She is able to state that she had abdominal pain with multiple episodes of vomiting about 3 days ago. And then had another day of nausea. Yesterday she felt well enough to go and partying with her friends. She also reports that occasionally she's been having abdominal bloating. Patient complains of chills and sweats. She also reports right upper quadrant pain. Patient currently eating pancakes for breakfast without difficulty. Surgical service has been consulted for cholecystitis. Patient was hospitalized in April for bilateral arm abscesses and chronic cholecystitis. No surgical intervention completed at that time. She does have a known history of IV drug abuse, hep C and alcohol abuse. Her drug screen was positive on admission and alcohol level elevated. PAST MEDICAL HISTORY: See list. PAST SURGICAL HISTORY: See list. MEDICATIONS: See list. ALLERGIES: See list. SOCIAL HISTORY: No illicit drug use. REVIEW OF SYSTEMS: CONSTITUTIONAL: Denies fever or chills. HEENT: Denies blurred vision, vision changes, or eye pain. Denies hemoptysis ENDOCRINE: Denies heat or cold intolerance. CARDIOVASCULAR: Denies chest pain or pressure. RESPIRATORY: No shortness of breath. GASTROINTESTINAL: Please refer to HPI NEURO: Denies history of seizures. PSYCH: No depression or suicidal ideation HEMATOLOGIC: Denies bleeding disorders. LYMPHATIC: The patient denies any lumps and bumps around the neck. GENITOURINARY: Denies any blood in urine or increased urinary frequency. MUSCULOSKELETAL: Denies myalgias. Denies joint swelling. Denies decreased range of motion beyond patients baseline. SKIN: Denies pruitis. Denies rash. PHYSICAL EXAM: VITAL SIGNS: Reviewed GENERAL: Well-developed in no acute distress. HEENT: No sclera icterus. Extraocular movements grossly intact. Moist buccal mucosa. Head is atraumatic, normocephalic. Hears conversational speech. No nasal drainage. NECK: Supple without lymphadenopathy. CHEST: Non-labored respirations and equal bilateral excursions. CARDIOVASCULAR: Palpable 2+ radial pulses. ABDOMEN: Soft. Nondistended. Tenderness with palpation of the right upper quadrant and middle of the abdomen. MUSCULOSKELETAL: No clubbing or cyanosis. NEUROLOGIC: No focal or lateralizing signs. Cranial nerves II through XII grossly intact. PSYCH: Appropriate affect. Alert and oriented to person, place and time. SKIN: Well perfused. Good skin turgor. LABORATORY DATA: WBC 3.44 Hgb 11.6 platelets 112 Sodium is 136 potassium 3.6 creatinine 0.6 Total bilirubin 2.1 down to 0.7 AST 243 and underwent an ALT 187 down to 120 alk phos 12/16/2085, ammonia level 30 down to 18 Urinalysis with large leukocyte esterase Urine drug screen opiates, amphetamines and methamphetamines benzodiazepine, cocaine and marijuana detected Serum alcohol level 81 IMAGING: HIDA reports no cystic duct obstruction evident. normal EF 54% Gallbladder ultrasound from 05/14/2023 shows uncomplicated cholelithiasis ASSESSMENT: 1. Abdominal pain with nausea and vomiting 2. Cholelithiasis 3. Elevated liver enzymes trending down 4. Alcohol abuse 5. IV drug abuse 6. Hepatitis C 7. Toxic metabolic encephalopathy 8. UTI 9. Elevated ammonia level PLAN: -No surgical intervention planned at this time -Patient tolerating regular diet -Add low-fat diet -Continue supportive care Thank you for this consultation Physician Restorative Coordinator note has been reviewed by physician. Signing provider agrees with the documented findings, assessment, and plan of care. Past Medical History Past Medical History: Liver Disease, Seizure Disorder, Supraventricular Tachycardia (SVT) Additional Past Medical History / Comment(s): SVT with cardiac ablation, lumbar DDD, bulging lumbar disc, ETOH abuse, alcohol withdrawals, pt states she has a seizure disorder and has alcohol withdrawal seizures with last seizure in 2020, drug abuse/pt states IV drug abuse, hepatitis C, lumbar DDD/bulging discs, migraines, sinus problems, past bilateral arm fractures/casted, past broken left ankle and leg/casted, ruptured spleen with surgery. History of Any Multi-Drug Resistant Organisms: ESBL Year Discovered:: 01/17/22 MDRO Source:: ESBL URINE Past Surgical History: Bariatric Surgery, Cardiac Ablation, EPS, Orthopedic Surgery Additional Past Surgical History / Comment(s): Cardiac ablation for SVT, gastric sleeve, spleen repair, I&D L wrist. Past Anesthesia/Blood Transfusion Reactions: No Reported Reaction Additional Past Anesthesia/Blood Transfusion Reaction / Comm: Pt has clausterphobia. Past Psychological History: Anxiety, Bipolar, Depression, Panic Disorder Smoking Status: Current every day smoker Past Alcohol Use History: Daily Past Drug Use History: Unable to Obtain - Past Family History Father History Unknown: Yes Family Medical History: COPD, Diabetes Mellitus Mother History Unknown: Yes Family Medical History: Asthma Additional Family Medical History / Comment(s): pt reports mother had cyclic vomiting issues, substance abuse history Sister(s) Family Medical History: Supraventricular Tachycardia (SVT) Additional Family Medical History / Comment(s): Sister had SVT. She is recently from overdose. Medications and Allergies Home Medications Medication Instructions Recorded Confirmed Type No Known Home Medications 05/15/23 06/03/23 History Allergies Allergy/AdvReac Type Severity Reaction Status Date / Time trazodone AdvReac dizziness Verified 06/03/23 22:22 Surgical - Exam Vital Signs Temp Pulse Resp BP Pulse Ox 97.9 F 140 H 22 141/95 98 06/03/23 20:23 06/03/23 20:23 06/03/23 20:23 06/03/23 20:23 06/03/23 20:23 Results - Labs 06/05/23 04:54 06/05/23 04:54 Abnormal Lab Results - Last 24 Hours (Table) 06/05/23 06/05/23 Range/Units 04:54 04:54 WBC 3.44 L (4.50-10.00) X 10*3/uL RBC 3.77 L (4.10-5.20) X 10*6/uL Hgb 11.6 L (12.0-15.0) d/dL Hct 34.7 L (37.2-46.3) % Plt Count 112 L (140-440) X 10*3/uL Neutrophils # 1.52 L (1.80-7.70) X 10*3/uL Carbon Dioxide 20.4 L (21.6-31.8) mmol/L BUN/Creatinine Ratio 28.83 H (12.00-20.00) Ratio Calcium 8.4 L (8.7-10.3) mg/dL AST 110 H (13-35) U/L ALT 120 H (8-44) U/L Total Protein 6.0 L (6.2-8.2) d/dL Albumin 3.6 L (3.8-4.9) d/dL Albumin/Globulin Ratio 1.50 L (1.60-3.17) Ratio Diabetes panel 06/05/23 Range/Units 04:54 Sodium 136 (135-145) mmol/L Potassium 3.6 (3.5-5.5) mmol/L Chloride 105 (96-109) mmol/L Carbon Dioxide 20.4 L (21.6-31.8) mmol/L BUN 17.3 (9.0-27.0) mg/dL Creatinine 0.6 (0.6-1.5) mg/dL Glucose 83 (70-110) mg/dL Calcium 8.4 L (8.7-10.3) mg/dL AST 110 H (13-35) U/L ALT 120 H (8-44) U/L Alkaline Phosphatase 86 (41-126) U/L Total Protein 6.0 L (6.2-8.2) d/dL Albumin 3.6 L (3.8-4.9) d/dL Calcium panel 06/05/23 Range/Units 04:54 Calcium 8.4 L (8.7-10.3) mg/dL Albumin 3.6 L (3.8-4.9) d/dL Pituitary panel 06/05/23 Range/Units 04:54 Sodium 136 (135-145) mmol/L Potassium 3.6 (3.5-5.5) mmol/L Chloride 105 (96-109) mmol/L Carbon Dioxide 20.4 L (21.6-31.8) mmol/L BUN 17.3 (9.0-27.0) mg/dL Creatinine 0.6 (0.6-1.5) mg/dL Glucose 83 (70-110) mg/dL Calcium 8.4 L (8.7-10.3) mg/dL Adrenal panel 06/05/23 Range/Units 04:54 Sodium 136 (135-145) mmol/L Potassium 3.6 (3.5-5.5) mmol/L Chloride 105 (96-109) mmol/L Carbon Dioxide 20.4 L (21.6-31.8) mmol/L BUN 17.3 (9.0-27.0) mg/dL Creatinine 0.6 (0.6-1.5) mg/dL Glucose 83 (70-110) mg/dL Calcium 8.4 L (8.7-10.3) mg/dL Total Bilirubin 0.7 (0.3-1.2) mg/dL AST 110 H (13-35) U/L ALT 120 H (8-44) U/L Alkaline Phosphatase 86 (41-126) U/L Total Protein 6.0 L (6.2-8.2) d/dL Albumin 3.6 L (3.8-4.9) d/dL
--- NOTE | 2023-06-05 13:14 | P.CN ---
Psychiatric Consult - . Consult date: 06/05/23 Consult:: 06/05/23 13:13 IDENTIFYING DATA: This patient is a 32-year-old female significant history of polysubstance abuse presents to the hospital for altered mental status in the context of polysubstance intoxication HISTORY OF PRESENT ILLNESS: The patient presented to the hospital on 06/03/2023, presenting to the emergency department with altered mental status. The patient tested positive for methamphetamines, amphetamines, cocaine, marijuana, and opiates. Psychiatry has been consulted for evaluation of altered mental status. This patient is familiar to this provider in treatment team. Upon evaluation by this provider, the patient is currently alert and oriented in all spheres. She is not reporting any suicidal or homicidal ideation, intention, and/or plan. She reports vague ongoing stressors however continues to report that she is dealing with the loss of her sister and mother. The patient does admit to heavy substance abuse. She does admit to using intravenous and intranasal methamphetamines, cocaine, heroin, as well as cannabis use. Furthermore, the patient also had a serum alcohol 81. In regards to acute psychiatric symptoms, the patient is not reporting any auditory or visualizations. She is not reporting any significant symptoms of sparkle or hypomania. She does report elevated anxiety and overall feelings of depression. She reports difficulty with sleep, anhedonia, poor appetite, and hopelessness. She does admit that she is nonadherent with any of her prescribed medications. PAST PSYCHIATRIC HISTORY: The patient has a history of depression, anxiety, and polysubstance abuse including methamphetamine use disorder, opiate use disorder, and other psychoactive substance use disorders. Patient was last admitted onto our psychiatric unit in February 2022 and was discharged on a regimen of Lexapro, Neurontin, Seroquel, and prazosin. The patient has had at least 10 psychiatric inpatient admissions since 2016. Patient is nonadherent with any outpatient follow-up. PAST MEDICAL HISTORY: ALLERGIES: Trazodone CHEMICAL DEPENDENCY HISTORY: Patient is actively using alcohol, methamphetamines, opiates, cocaine, marijuana, and also has a history of "huffing paint." FAMILY PSYCHIATRIC/SUBSTANCE USE HISTORY: Patient's sister reportedly by overdose. The patient's father abused cocaine. The patient's mother also is reportedly and abused multiple substances as well. SOCIAL HISTORY: Patient was born and raised in [place]. She completed high school. MENTAL STATUS EXAM: General Appearance: Patient appears to be stated age is alert, pleasant, and cooperative. Patient appears to have very disheveled hygiene and grooming wearing hospital gown with fair eye contact. Behavior: Patient is calmly lying in bed without any agitated behavior. Speech: Patient's speech is fluent and nonpressured. Mood/Affect: Patient reports their mood is "just nervous", affect is constricted. Suicidality/Homicidality: Patient denies any suicidal or homicidal ideation. Perceptions: Patient denies any visual hallucinations and denies any auditory hallucinations Though content/process: There is no evidence of any delusional thought content and thought process is linear and goal-directed. Memory and concentration: AOX3, grossly intact for the purposes of this session. Can spell "WORLD" backwards Judgment and insight: Poor IMPRESSIONS: Substance-induced depressive disorder Generalized anxiety disorder Borderline personality disorder Polysubstance abuse including cocaine, benzodiazepines, opiates, and other psychoactive substances Urinary tract infection PLAN: -Continue your medical management -At this time patient DOES NOT meet criteria for inpatient psychiatric admission. The patient will remain at chronically high risk for harm to self due to her polysubstance abuse. Her primary diagnosis is her substance use disorders. She is not endorsing any suicidal or homicidal ideation, intention, and/or plan at this time. She is not overtly manic or psychotic. -Delirium precautions recommended with patient including - avoiding use of narcotics and [place] sedatives, limit anticholinergic medications when possible, frequent re-orientation, minimize use of restraints, open window shades during the day and close them at night -Would recommend the following medication changes/additions: We will start Cymbalta 30 mg by mouth twice a day for depression/anxiety Start Remeron 15 mg by mouth at bedtime for depression/insomnia/anxiety -Patient does not require one-to-one sitter -Psychiatry will loosely follow-up at this time. If there are any acute changes or concerns please call us. Vital Signs Temp 98.1 F 06/05/23 00:05 Pulse 85 06/05/23 10:28 Resp 17 06/05/23 10:28 BP 121/80 06/05/23 00:05 Pulse Ox 99 06/05/23 08:55 FiO2 21 06/04/23 09:04 Intake & Output 0706/05/23 06/05/23 18:59 06:59 18:59 Weight 72.575 kg Other: Voiding Method Bedpan Toilet # Voids 3 1 # Bowel Movements 2 Laboratory Results WBC 3.44 X 10*3/uL (4.50-10.00) L 06/05/23 04:54 RBC 3.77 X 10*6/uL (4.10-5.20) L 06/05/23 04:54 Hgb 11.6 d/dL (12.0-15.0) L 06/05/23 04:54 Hct 34.7 % (37.2-46.3) L 06/05/23 04:54 MCV 92.0 FL (80.0-97.0) 06/05/23 04:54 MCH 30.8 pg (27.0-32.0) 06/05/23 04:54 MCHC 33.4 d/dL (32.0-37.0) 06/05/23 04:54 RDW 12.3 % (11.5-14.5) 06/05/23 04:54 Plt Count 112 X 10*3/uL (140-440) L 06/05/23 04:54 MPV 11.5 FL (9.5-12.2) 06/05/23 04:54 Immature Gran % (Auto) 0 % 06/05/23 04:54 Absolute Nucleated RBC 0 % 06/05/23 04:54 Neutrophils % 44.2 % 06/05/23 04:54 Lymphocytes % 43.6 % 06/05/23 04:54 Monocytes % 8.7 % 06/05/23 04:54 Eosinophils % 3.2 % 06/05/23 04:54 Basophils % 0.3 % 06/05/23 04:54 Immature Gran # 0 X 10*3/uL 06/05/23 04:54 Neutrophils # 1.52 X 10*3/uL (1.80-7.70) L 06/05/23 04:54 Lymphocytes # 1.50 X 10*3/uL (0.90-5.00) 06/05/23 04:54 Monocytes # 0.30 X 10*3/uL (0.20-1.00) 06/05/23 04:54 Eosinophils # 0.11 X 10*3/uL (0.04-0.35) 06/05/23 04:54 Basophils # 0.01 X 10*3/uL (0.00-0.10) 06/05/23 04:54 NRBC/100 WBC Diff 0 X 10*3/uL (0.00-0.01) 06/05/23 04:54 PT 10.6 sec (9.0-12.0) 06/03/23 20:40 INR 1.0 (<1.2) 06/03/23 20:40 APTT 25.9 sec (22.0-30.0) 06/03/23 20:40 Sodium 136 mmol/L (135-145) 06/05/23 04:54 Potassium 3.6 mmol/L (3.5-5.5) 06/05/23 04:54 Chloride 105 mmol/L (96-109) 06/05/23 04:54 Carbon Dioxide 20.4 mmol/L (21.6-31.8) L 06/05/23 04:54 Anion Gap 10.60 mmol/L (4.00-12.00) 06/05/23 04:54 BUN 17.3 mg/dL (9.0-27.0) 06/05/23 04:54 Creatinine 0.6 mg/dL (0.6-1.5) 06/05/23 04:54 Est GFR (CKD-EPI) 122 (>=60) 06/05/23 04:54 Est GFR (CKD-EPI)AfAm >90 (>60 ml/min/1.73 sqM) 06/04/23 05:52 Est GFR (CKD-EPI)NonAf >90 (>60 ml/min/1.73 sqM) 06/04/23 05:52 BUN/Creatinine Ratio 28.83 Ratio (12.00-20.00) H 06/05/23 04:54 Glucose 83 mg/dL (70-110) 06/05/23 04:54 Calcium 8.4 mg/dL (8.7-10.3) L 06/05/23 04:54 Phosphorus 4.5 mg/dL (2.5-4.5) 06/04/23 05:52 Magnesium 1.7 mg/dL (1.6-2.3) 06/04/23 05:52 Total Bilirubin 0.7 mg/dL (0.3-1.2) 06/05/23 04:54 AST 110 U/L (13-35) H 06/05/23 04:54 ALT 120 U/L (8-44) H 06/05/23 04:54 Alkaline Phosphatase 86 U/L (41-126) 06/05/23 04:54 Ammonia 26 umol/L (<30) 06/05/23 04:54 Troponin I <0.012 ng/mL (0.000-0.034) 06/03/23 20:40 Total Protein 6.0 d/dL (6.2-8.2) L 06/05/23 04:54 Albumin 3.6 d/dL (3.8-4.9) L 06/05/23 04:54 Globulin 2.4 d/dL (1.6-3.3) 06/05/23 04:54 Albumin/Globulin Ratio 1.50 Ratio (1.60-3.17) L 06/05/23 04:54 Urine Color Yellow 06/04/23 08:00 Urine Appearance Cloudy (Clear) H 06/04/23 08:00 Urine pH 6.0 (5.0-8.0) 06/04/23 08:00 Ur Specific [place] 1.027 (1.001-1.035) 06/04/23 08:00 Urine Protein 1+ (Negative) H 06/04/23 08:00 Urine Glucose (UA) Negative (Negative) 06/04/23 08:00 Urine Ketones 1+ (Negative) H 06/04/23 08:00 Urine Blood Small (Negative) H 06/04/23 08:00 Urine Nitrite Negative (Negative) 06/04/23 08:00 Urine Bilirubin Negative (Negative) 06/04/23 08:00 Urine Urobilinogen 3.0 mg/dL (<2.0) 06/04/23 08:00 Ur Leukocyte Esterase Large (Negative) H 06/04/23 08:00 Urine RBC 8 /hpf (0-5) H 06/04/23 08:00 Urine WBC 144 /hpf (0-5) H 06/04/23 08:00 Urine WBC Clumps Few /hpf (None) H 06/04/23 08:00 Ur Squamous Epith Cells 4 /hpf (0-4) 06/04/23 08:00 Urine Bacteria Moderate /hpf (None) H 06/04/23 08:00 Hyaline Casts 118 /lpf (0-2) H 06/04/23 08:00 Urine Mucus Few /hpf (None) H 06/04/23 08:00 Urine HCG, Qual Not Detected (Not Detectd) 06/04/23 08:00 Urine Opiates Screen Detected (NotDetected) H 06/04/23 08:00 Ur Oxycodone Screen Not Detected (NotDetected) 06/04/23 08:00 Urine Methadone Screen Not Detected (NotDetected) 06/04/23 08:00 Ur Propoxyphene Screen Not Detected (NotDetected) 06/04/23 08:00 Ur Barbiturates Screen Not Detected (NotDetected) 06/04/23 08:00 U Tricyclic Antidepress Not Detected (NotDetected) 06/04/23 08:00 Ur Phencyclidine Scrn Not Detected (NotDetected) 06/04/23 08:00 Ur Amphetamines Screen Detected (NotDetected) H 06/04/23 08:00 U Methamphetamines Scrn Detected (NotDetected) H 06/04/23 08:00 U Benzodiazepines Scrn Detected (NotDetected) H 06/04/23 08:00 Urine Cocaine Screen Detected (NotDetected) H 06/04/23 08:00 U Marijuana (THC) Screen Detected (NotDetected) H 06/04/23 08:00 Serum Alcohol 81 mg/dL 06/03/23 20:40 Allergies Allergy/AdvReac Type Severity Reaction Status Date / Time trazodone AdvReac dizziness Verified 06/03/23 22:22
--- NOTE | 2023-06-05 14:21 | P.PN ---
Subjective Progress Note Date: 06/05/23 Principal diagnosis: Hepatic encephalopathy This is a 32-year-old female who according to documentation came into the emergency department for confusion. Patient is currently very lethargic states she was just given medication. She is a poor historian and not giving any infor mation at this time. She keeps drifting back and forth into sleep. She is oriented 3 when awake. History obtained from chart. Patient has a long- standing history of alcohol and drug abuse, history of seizure disorder, liver disease, and. According to chart patient was recently had a positive hepatitis C antibody. Patient does state that she is still using IV drugs and drinking. Patient urine drug screen was positive for opiates, amphetamines, methamphetamines, benzodiazepines, cocaine, and THC. Patient's serum alcohol level also 81. Admitting ammonia level 30. Gastroenterology was consulted for hepatic encephalopathy. She had a Brain CT reporting no acute intracranial process. Minimal left periorbital soft tissue edema as well as right lateral scalp laceration. Labs: WBC 3.9 hemoglobin 12.5 hematocrit 37 platelet count 117,000 INR 1.0 sodium 133 potassium 3.5 nightly 23 creatinine 0.5 total bilirubin 1.9 AST 187 ALT 150 alkaline phosphatase 82 ammonia 18 06/05/2023 Patient was seen and examined today as a follow-up. She is much more awake and alert. She is denying any abdominal pain nausea or vomiting. She does state that she vomited 4 to day or 2 prior to coming into the hospital. Does admit to polysubstance abuse and admitted to using the day that she came in. She went down for a HIDA scan today reporting no cystic duct obstruction evident. With a normal ejection fraction. Repeat labs show WBC 3.4 hemoglobin 11.6 hematocrit 34.7 platelet count 112,000 total bilirubin 0.7 AST 110 ALT 120 alkaline phosphatase 86 ammonia level 26. Reported 2-3 bowel movements yesterday. No reports of black stools today. She is tolerating a regular diet. Objective - Vital Signs Vital signs: Vital Signs Temp 98.1 F 06/05/23 00:05 Pulse 85 06/05/23 00:05 Resp 18 06/05/23 00:05 BP 121/80 06/05/23 00:05 Pulse Ox 99 06/05/23 08:55 FiO2 21 06/04/23 09:04 Intake & Output 06/04/23 06/05/23 06/05/23 18:59 06:59 18:59 Weight 72.575 kg Other: Voiding Method Bedpan # Voids 3 1 # Bowel Movements 2 - Exam General appearance: The patient is alert, oriented, appears in no acute distress. HET: Head is normocephalic and atraumatic. Conjunctiva pink. Sclera anicteric. Neck: Supple without lymphadenopathy. Abdomen: Soft, nontender, nondistended with bowel sounds. No guarding or rigidity. Extremities: Normal skin color and turgor. No pedal edema Skin: No rashes, no jaundice Neurological: No focal deficits. Alert and oriented. - Labs CBC & Chem 7: 06/05/23 04:54 06/05/23 04:54 Labs: Abnormal Lab Results - Last 24 Hours (Table) 06/05/23 Range/Units 04:54 WBC 3.44 L (4.50-10.00) X 10*3/uL RBC 3.77 L (4.10-5.20) X 10*6/uL Hgb 11.6 L (12.0-15.0) d/dL Hct 34.7 L (37.2-46.3) % Plt Count 112 L (140-440) X 10*3/uL Neutrophils # 1.52 L (1.80-7.70) X 10*3/uL Assessment and Plan (1) Hepatic encephalopathy Narrative/Plan: 2-year-old female with known history of alcohol abuse and IV drug user presented to the emergency department with altered mental status changes. Difficult to obtain HPI and past medical history due to patient's mentation. She is in and out of sleep however when she was awake she was oriented 3. Not willing to gi ve much of a history. States that she is still drinking and still using drugs. Denies any knowledge of cirrhosis of the liver. Patient had mild elevation of ammonia at 30, LFTs elevated consistent with underlying liver disease. However unclear if this is the cause of patient's altered mental status as patient has multiple drugs in her system including serum alcohol, opiates, amphetamines, methamphetamines, benzodiazepines, cocaine, and marijuana. We'll continue with lactulose, titrate to have 2-3 bowel movements daily. Likely alter mental status change was related to polysubstance abuse. May have some underlying component of hepatic encephalopathy related to underlying alcohol and drug abuse and hepatitis C which patient was diagnosed approximately 2 years ago without any current treatment and states that she is still using IV drugs. Current Visit: Yes Status: Acute Code(s): K76.82 - HEPATIC ENCEPHALOPATHY SNOMED Code(s): 76289840 (2) Elevated LFTs Narrative/Plan: The patient with long-standing history of alcohol abuse, polysubstance abuse and IV drug use. Patient with recent hepatitis C positive antibody on 05/16/2023. LFTs slightly elevated likely related to underlying alcoholic liver disease and hepatitis C. Patient also had gallbladder ultrasound done on 05/14/2023 with reported normal liver. Current Visit: Yes Status: Acute Code(s): R79.89 - OTHER SPECIFIED ABNORMAL FINDINGS OF BLOOD CHEMISTRY SNOMED Code(s): 911375156 (3) Hepatitis C antibody test positive Narrative/Plan: Discussed with patient importance of IV drug abstinence in order to be treated for hepatitis C. Genotype and quantitative pending currently Current Visit: Yes Status: Acute Code(s): R76.8 - OTHER SPECIFIED ABNORMAL IMMUNOLOGICAL FINDINGS IN SERUM SNOMED Code(s): 415934068 (4) Alcohol use disorder Current Visit: Yes Status: Acute Priority: High Code(s): KON3618 - SNOMED Code(s): 0697759 (5) Altered mental status Current Visit: Yes Status: Acute Code(s): R41.82 - ALTERED MENTAL STATUS, UNSPECIFIED SNOMED Code(s): 397799309 (6) Polysubstance abuse Current Visit: No Status: Acute Priority: Medium Code(s): F19.10 - OTHER PSYCHOACTIVE SUBSTANCE ABUSE, UNCOMPLICATED SNOMED Code(s): 179578900 Plan: 1. Continue symptomatic and supportive care 2. Continue lactulose, titrate to have 2-3 bowel movements daily 3. Repeat CBC and CMP daily 4. Hepatitis C genotype and quantitative ordered 5. Continue with recommendations from neurology 6. Recommend alcohol and illicit drug abstinence 7. No further workup indicated from gastroenterology. Patient will need to follow-up in office for hepatitis C serology Thank you for this consultation, we will continue to follow Dr. Efra Hernandez I agree with the dictator's note, documented as a scribe by Meg Lee.
[2023-06-05] MEDS: DULoxetine HCL 30 MG CAPSULE.DR PO SCH (22:02)
[2023-06-05] MEDS: MIRTAZAPINE 15 MG TAB PO SCH (22:02)
--- NOTE | 2023-06-05 23:18 | PN ---
PROGRESS NOTE SUBJECTIVE: Psychiatry saw her and is not going to take her. She is to consult Hematology for pancytopenia. Her bilirubin appears to be improved down to the normal range today. She has negative HIDA scan. Ammonia levels back to normal. OBJECTIVE: CARDIOVASCULAR: S1, S2. LUNGS clear. GI: Soft. PLANS: Await for UTI and urine culture to come back. Continue with broad-spectrum antibiotics. Possible discharge home soon. PROGNOSIS: Guarded. Please see further orders. MMODL / IJN: [id number] /
[2023-06-06] MEDS: SODIUM CHLORIDE 0.9% 1,000 ML IV SCH ×2 (08:56→19:28)
[2023-06-06] MEDS: MORPHINE SULFATE 4 MG/ML SYRINGE IV PRN ×4 (09:03→23:23)
[2023-06-06] MEDS: THIAMINE 100 MG TAB PO SCH (09:28)
[2023-06-06] MEDS: DULoxetine HCL 30 MG CAPSULE.DR PO SCH (09:28)
[2023-06-06] MEDS: FOLIC ACID 1 MG TAB PO SCH (09:28)
[2023-06-06] MEDS: LACTULOSE 20 GM/30 ML CUP PO SCH ×2 (09:31→22:15)
[2023-06-06] MEDS: LORazepam 2 MG/ML INJ IV PRN (11:50)
--- NOTE | 2023-06-06 13:32 | P.PN ---
Subjective Progress Note Date: 06/06/23 CHIEF COMPLAINT: Altered mental status HISTORY OF PRESENT ILLNESS: Patient lying in bed comfortably. She is tolerating diet. She feels better than on admission. She does complain of diffuse abdominal pain but also having right upper quadrant pain. Denies any nausea or vomiting. Afebrile. No new labs. HIDA with normal EF 54% PHYSICAL EXAM: VITAL SIGNS: Reviewed GENERAL: Well-developed in no acute distress. HEENT: No sclera icterus. Extraocular movements grossly intact. Moist buccal mucosa. Head is atraumatic, normocephalic. Hears conversational speech. No nasal drainage. NECK: Supple without lymphadenopathy. CHEST: Non-labored respirations and equal bilateral excursions. CARDIOVASCULAR: Palpable 2+ radial pulses. ABDOMEN: Soft. Nondistended. Diffuse tenderness. Tender in the right upper quadrant MUSCULOSKELETAL: No clubbing or cyanosis. NEUROLOGIC: No focal or lateralizing signs. Cranial nerves II through XII grossly intact. PSYCH: Appropriate affect. Alert and oriented to person, place and time. SKIN: Well perfused. Good skin turgor. ASSESSMENT: 1. Abdominal pain with nausea and vomiting improving 2. Cholelithiasis 3. Elevated liver enzymes trending down 4. Alcohol abuse 5. IV drug abuse 6. Hepatitis C 7. Toxic metabolic encephalopathy 8. UTI 9. Elevated ammonia level PLAN: -No surgical intervention planned at this time -Patient tolerating low fat diet -Continue supportive care Physician Forming Press Operator note has been reviewed by physician. Signing provider agrees with the documented findings, assessment, and plan of care. Objective - Vital Signs Vital signs: Vital Signs Temp 98.0 F 06/06/23 01:25 Pulse 94 06/06/23 07:05 Resp 16 06/06/23 07:05 BP 142/94 06/06/23 07:05 Pulse Ox 98 06/06/23 09:05 FiO2 21 06/06/23 09:05 Intake & Output 06/05/23 06/06/23 06/06/23 18:59 06:59 18:59 Other: Voiding Method Toilet # Voids 5 2 # Bowel Movements 1 - Labs CBC & Chem 7: 06/05/23 04:54 06/05/23 04:54 Labs: Microbiology - Last 24 Hours (Table) 06/04/23 08:00 Urine Culture - Preliminary Urine,Voided Gram Neg Bacilli
--- NOTE | 2023-06-06 13:49 | P.PN ---
Progress Note - Text Progress Note Date: 06/06/23 Interval History: Patient was seen in her bed and eating lunch and was directable and agreeable to speak with creative writer in the room. Currently, the patient is not reporting any suicidal or homicidal ideation, intention, and/or plan. She is not reporting any auditory or visualizations. She denies any paranoia or other delusions.. At this time patient denies any suicidal or homical ideations, intent or plan. Patient denies any auditory, visual hallucinations and denies any paranoia or delusions. Patient denies any side effects from the medications and has been compliant with meds. She reports improved sleep and appetite. Mental Status Exam: General Appearance: Patient appears to be stated age is alert, directable, and cooperative. Multiple tattoos. Improved hygiene and grooming. Behavior: Patient is calmly seated without any agitated behavior. Speech: Patient's speech is fluent and nonpressured. Mood/Affect: Mood is improving mildly, affect is congruent and constricted. Suicidality/Homicidality: Patient denies having any suicidal or homicidal ideation intent or plan. Perceptions: Patient denies any visual hallucinations and denies any auditory hallucinations Though content/process: There is no evidence of any delusional thought content and thought process is linear and goal-directed. Memory and concentration: AOX3, grossly intact for the purposes of this session Judgment and insight: Improving mildly Vital Signs Temp 98.0 F 06/06/23 01:25 Pulse 94 06/06/23 07:05 Resp 16 06/06/23 07:05 BP 142/94 06/06/23 07:05 Pulse Ox 98 06/06/23 09:05 FiO2 21 06/06/23 09:05 Intake & Output 06/05/23 06/06/23 06/06/23 18:59 06:59 18:59 Other: Voiding Method Toilet # Voids 5 2 # Bowel Movements 1 Laboratory Results - Last 24 Hours 06/05/23 04:54 Hepatitis C Viral RNA Detected A Hepatitis C RNA Quant [id number] HCV RNA PCR log IUs/ml 4.96 Assessment Substance-induced depressive disorder Generalized anxiety disorder Borderline personality disorder Polysubstance abuse including cocaine, benzodiazepines, opiates, and other psychoactive substances Urinary tract infection Plan: -Continue your medical management -At this time patient DOES NOT meet criteria for inpatient psychiatric admission. The patient will remain at chronically high risk for harm to self due to her polysubstance abuse. Her primary diagnosis is her substance use disorders. She is not endorsing any suicidal or homicidal ideation, intention, and/or plan at this time. She is not overtly manic or psychotic. She is alert and oriented in all spheres. -Delirium precautions recommended with patient including - avoiding use of narcotics and MATERIAL CREW SUPERVISOR sedatives, limit anticholinergic medications when possible, frequent re-orientation, minimize use of restraints, open window shades during the day and close them at night -Medications: Increase Cymbalta to 60 mg by mouth twice a day for depression/anxiety/neuropathic pain Continue Remeron 15 mg by mouth at bedtime for depression/insomnia -Patient does not require one-to-one sitter - Patient appears to be psychiatrically stable and cleared for discharge. Psychiatry will loosely follow-up at this time. If there are any acute changes or concerns please call us.
--- NOTE | 2023-06-06 14:27 | P.PN ---
Subjective Progress Note Date: 06/06/23 Principal diagnosis: Hepatic encephalopathy This is a 32-year-old female who according to documentation came into the emergency department for confusion. Patient is currently very lethargic states she was just given medication. She is a poor historian and not giving any infor mation at this time. She keeps drifting back and forth into sleep. She is oriented 3 when awake. History obtained from chart. Patient has a long- standing history of alcohol and drug abuse, history of seizure disorder, liver disease, and. According to chart patient was recently had a positive hepatitis C antibody. Patient does state that she is still using IV drugs and drinking. Patient urine drug screen was positive for opiates, amphetamines, methamphetamines, benzodiazepines, cocaine, and THC. Patient's serum alcohol level also 81. Admitting ammonia level 30. Gastroenterology was consulted for hepatic encephalopathy. She had a Brain CT reporting no acute intracranial process. Minimal left periorbital soft tissue edema as well as right lateral scalp laceration. Labs: WBC 3.9 hemoglobin 12.5 hematocrit 37 platelet count 117,000 INR 1.0 sodium 133 potassium 3.5 nightly 23 creatinine 0.5 total bilirubin 1.9 AST 187 ALT 150 alkaline phosphatase 82 ammonia 18 06/05/2023 Patient was seen and examined today as a follow-up. She is much more awake and alert. She is denying any abdominal pain nausea or vomiting. She does state that she vomited 4 to day or 2 prior to coming into the hospital. Does admit to polysubstance abuse and admitted to using the day that she came in. She went down for a HIDA scan today reporting no cystic duct obstruction evident. With a normal ejection fraction. Repeat labs show WBC 3.4 hemoglobin 11.6 hematocrit 34.7 platelet count 112,000 total bilirubin 0.7 AST 110 ALT 120 alkaline phosphatase 86 ammonia level 26. Reported 2-3 bowel movements yesterday. No reports of black stools today. She is tolerating a regular diet. 06/06/2023 Patient seen and examined as a follow-up. No acute changes through the night. Patient is alert and oriented. According to nursing she is requesting Ativan and morphine. No current labs available. She is tolerating a regular diet without any complaints at this time. Objective - Vital Signs Vital signs: Vital Signs Temp 98.0 F 06/06/23 01:25 Pulse 94 06/06/23 07:05 Resp 16 06/06/23 07:05 BP 142/94 06/06/23 07:05 Pulse Ox 98 06/06/23 09:05 FiO2 21 06/06/23 09:05 Intake & Output 06/05/23 06/06/23 06/06/23 18:59 06:59 18:59 Other: Voiding Method Toilet # Voids 5 2 # Bowel Movements 1 - Exam General appearance: The patient is alert, oriented, appears in no acute distress. HET: Head is normocephalic and atraumatic. Conjunctiva pink. Sclera anicteric. Neck: Supple without lymphadenopathy. Abdomen: Soft, nontender, nondistended with bowel sounds. No guarding or rigidity. Extremities: Normal skin color and turgor. No pedal edema Skin: No rashes, no jaundice Neurological: No focal deficits. Alert and oriented. - Labs CBC & Chem 7: 06/05/23 04:54 06/05/23 04:54 Labs: Microbiology - Last 24 Hours (Table) 06/04/23 08:00 Urine Culture - Preliminary Urine,Voided Gram Neg Bacilli Assessment and Plan (1) Hepatic encephalopathy Narrative/Plan: 2-year-old female with known history of alcohol abuse and IV drug user presented to the emergency department with altered mental status changes. Difficult to obtain HPI and past medical history due to patient's mentation. She is in and out of sleep however when she was awake she was oriented 3. Not willing to give much of a history. States that she is still drinking and still using drugs. Denies any knowledge of cirrhosis of the liver. Patient had mild elevation of ammonia at 30, LFTs elevated consistent with underlying liver disease. However unclear if this is the cause of patient's altered mental status as patient has multiple drugs in her system including serum alcohol, opiates, amphetamines, methamphetamines, benzodiazepines, cocaine, and marijuana. We'll continue with lactulose, titrate to have 2-3 bowel movements daily. Likely alter mental status change was related to polysubstance abuse. May have some underlying component of hepatic encephalopathy related to underlying alcohol and drug abuse and hepatitis C which patient was diagnosed approximately 2 years ago without any current treatment and states that she is still using IV drugs. Current Visit: Yes Status: Acute Code(s): K76.82 - HEPATIC ENCEPHALOPATHY SNOMED Code(s): 95875035 (2) Elevated LFTs Narrative/Plan: The patient with long-standing history of alcohol abuse, polysubstance abuse and IV drug use. Patient with recent hepatitis C positive antibody on 05/16/2023. LFTs slightly elevated likely related to underlying alcoholic liver disease and hepatitis C. Patient also had gallbladder ultrasound done on 05/14/2023 with reported normal liver. Current Visit: Yes Status: Acute Code(s): R79.89 - OTHER SPECIFIED ABNORMAL FINDINGS OF BLOOD CHEMISTRY SNOMED Code(s): 850463661 (3) Hepatitis C antibody test positive Narrative/Plan: Discussed with patient importance of IV drug abstinence in order to be treated for hepatitis C. Genotype and quantitative pending currently Current Visit: Yes Status: Acute Code(s): R76.8 - OTHER SPECIFIED ABNORMAL IMMUNOLOGICAL FINDINGS IN SERUM SNOMED Code(s): 188572303 (4) Alcohol use disorder Current Visit: Yes Status: Acute Priority: High Code(s): JQG5089 - SNOMED Code(s): 4528593 (5) Altered mental status Current Visit: Yes Status: Acute Code(s): R41.82 - ALTERED MENTAL STATUS, UNSPECIFIED SNOMED Code(s): 367119259 (6) Polysubstance abuse Current Visit: No Status: Acute Priority: Medium Code(s): F19.10 - OTHER PSYCHOACTIVE SUBSTANCE ABUSE, UNCOMPLICATED SNOMED Code(s): 765434058 (7) Pancytopenia Narrative/Plan: Likely from underlying liver disease Current Visit: Yes Status: Acute Code(s): D61.818 - OTHER PANCYTOPENIA SNOMED Code(s): 227939237 Plan: 1. Continue symptomatic and supportive care 2. Continue lactulose, titrate to have 2-3 bowel movements daily 3. Repeat CBC, CMP 4. Hepatitis C genotype and quantitative ordered and currently pending 5. Encourage ambulation 6. Recommend alcohol and illicit drug abstinence 7. No further workup indicated from gastroenterology. Patient will need to follow-up in office for hepatitis C serology Thank you for this consultation, we will continue to follow Dr. Efra Hernandez I agree with the dictator's note, documented as a scribe by Meg Lee.
[2023-06-06] MEDS: MIRTAZAPINE 15 MG TAB PO SCH (22:14)
[2023-06-06] MEDS: DULoxetine HCL 60 MG CAPSULE.DR PO SCH (22:15)
--- NOTE | 2023-06-07 01:06 | DS ---
DISCHARGE SUMMARY DISCHARGE MEDICATIONS: 1. Remeron 15 daily. 2. Lactulose 30 b.i.d. 3. Cymbalta 60 mg b.i.d. 4. Folic acid 2.5 mg daily. 5. Thiamine 100 mg daily. CONDITION: Stable. PROGNOSIS: Guarded. Ambulate as tolerated. DISCHARGE DIAGNOSES: Alcohol use disorder, polysubstance abuse, altered mental status, depression, delirium secondary to above, elevated liver enzymes secondary to hepatitis C, and possible alcohol abuse. Cleared by Surgery while in the hospital for gallbladder issues. Cleared by a GI. CIWA protocol. Psychiatry saw the patient, adjusted medicines for depression. She will follow up with [facility] as an outpatient. Prognosis guarded. Ambulate as tolerated. Diet as tolerated. MMODL / IJN: [id number] /
[2023-06-07] MEDS: MORPHINE SULFATE 4 MG/ML SYRINGE IV PRN (03:54)
--- NOTE | 2023-06-07 07:24 | P.CONS ---
History of Present Illness - Reason for Consult Consult date: 06/06/23 pancytopenia Requesting physician: Davis Lopez - Chief Complaint AMS - History of Present Illness Patient is a 33-year-old female with a significant history of hepatitis C and polysubstance abuse. We were consulted for pancytopenia. Patient presented to the emergency room for altered mental status. CT brain revealed no acute intracranial process. Minimal left periorbital ridge soft tissue edema as well as right lateral scalp laceration. HIDA scan revealed showed no cystic duct obstruction. Normal ejection fraction. LFTS and bilirubin elevated. Ammonia 30, improved on repeat, 18. CBC revealed WBC 3.4, hemoglobin 11.6, platelets 112,000. Urine culture positive for E. coli, continues on Rocephin. At today's visit patient is alert and oriented x3 and is answering questions appropriately. Reports history of anemia in the past. Denies rectal bleeding/melena Review of Systems 10 point ROS is negative except as stated in HPI Past Medical History Past Medical History: Liver Disease, Seizure Disorder, Supraventricular Tachycardia (SVT) Additional Past Medical History / Comment(s): SVT with cardiac ablation, lumbar DDD, bulging lumbar disc, ETOH abuse, alcohol withdrawals, pt states she has a seizure disorder and has alcohol withdrawal seizures with last seizure in 2020, drug abuse/pt states IV drug abuse, hepatitis C, lumbar DDD/bulging discs, migraines, sinus problems, past bilateral arm fractures/casted, past broken left ankle and leg/casted, ruptured spleen with surgery. History of Any Multi-Drug Resistant Organisms: ESBL Year Discovered:: 01/17/22 MDRO Source:: ESBL URINE Past Surgical History: Bariatric Surgery, Cardiac Ablation, EPS, Orthopedic Surgery Additional Past Surgical History / Comment(s): Cardiac ablation for SVT, gastric sleeve, spleen repair, I&D L wrist. Past Anesthesia/Blood Transfusion Reactions: No Reported Reaction Additional Past Anesthesia/Blood Transfusion Reaction / Comm: Pt has clausterphobia. Past Psychological History: Anxiety, Bipolar, Depression, Panic Disorder Smoking Status: Current every day smoker Past Alcohol Use History: Daily Past Drug Use History: Unable to Obtain - Past Family History Father History Unknown: Yes Family Medical History: COPD, Diabetes Mellitus Mother History Unknown: Yes Family Medical History: Asthma Additional Family Medical History / Comment(s): pt reports mother had cyclic vomiting issues, substance abuse history Sister(s) Family Medical History: Supraventricular Tachycardia (SVT) Additional Family Medical History / Comment(s): Sister had SVT. She is recently from overdose. Medications and Allergies Home Medications Medication Instructions Recorded Confirmed Type DULoxetine HCL [Cymbalta] 60 mg PO BID 15 Days #30 cap 06/06/23 Rx Folic Acid 0.5 mg PO DAILY 30 Days #30 tab 06/06/23 Rx Lactulose [Cephulac] 30 gm PO BID 30 Days #60 ml 06/06/23 Rx Mirtazapine [Remeron] 15 mg PO HS 15 Days #15 tab 06/06/23 Rx Thiamine [Vitamin B-1] 100 mg PO DAILY 30 Days #30 tab 06/06/23 Rx Allergies Allergy/AdvReac Type Severity Reaction Status Date / Time trazodone AdvReac dizziness Verified 06/03/23 22:22 Physical Exam Vitals: Vital Signs Temp Pulse Resp BP Pulse Ox FiO2 06/06/23 14:19 97.8 F 87 18 119/73 99 06/06/23 09:05 98 21 06/06/23 07:05 94 16 142/94 98 06/06/23 01:25 98.0 F 77 18 144/84 98 06/05/23 19:35 98.3 F 94 18 125/81 99 Intake and Output 06/06/23 06/06/23 06/06/23 06:59 14:59 22:59 Other: # Voids 2 4 # Bowel Movements 0 - Constitutional General appearance: average body habitus, no acute distress - EENT scalloped tongue, no glossitis noted Eyes: anicteric sclerae, EOMI ENT: hearing grossly normal - Neck Neck: no lymphadenopathy - Respiratory Respiratory: bilateral: CTA - Cardiovascular Rhythm: regular Heart sounds: normal: S1, S2 Abnormal Heart Sounds: no systolic murmur, no diastolic murmur, no rub, no S3 Gallop, no S4 Gallop, no click, no other - Gastrointestinal General gastrointestinal: normal bowel sounds, soft, no tenderness - Integumentary Integumentary: no cyanotic, no jaundiced - Neurologic Neurologic: CNII-XII intact - Musculoskeletal Musculoskeletal: strength equal bilaterally - Psychiatric Psychiatric: A&O x's 3, appropriate affect, intact judgment & insight Results CBC & Chem 7: 06/05/23 04:54 06/05/23 04:54 Labs: Abnormal Lab Results - Last 24 Hours (Table) 06/05/23 Range/Units 04:54 Hepatitis C Viral RNA Detected A (Not Detected) Microbiology - Last 24 Hours (Table) 06/04/23 08:00 Urine Culture - Preliminary Urine,Voided Gram Neg Bacilli Comments: HIDA scan reviewed CT Scan - head: report reviewed Assessment and Plan (1) Altered mental status Current Visit: Yes Status: Acute Priority: High Code(s): R41.82 - ALTERED MENTAL STATUS, UNSPECIFIED SNOMED Code(s): 338683909 (2) Pancytopenia Current Visit: Yes Status: Acute Priority: Medium Code(s): D61.818 - OTHER PANCYTOPENIA SNOMED Code(s): 751568259 Plan: Pancytopenia: -CBC revealed mild pancytopenia, WBC 3.4, hemoglobin 11.6, platelets 112,000. -Hx of polysubstance abuse and Etoh abuse -Anemia workup ordered to r/o nutritional deficiencies -Likely r/t Etoh abuse and poor oral intake and current infectious/inflammatory process -Will continue to monitor counts AMS: -Neuro following, r/t toxic encephalopathy due to polysubstance abuse superimposed by underlying UTI -CT head negative for acute intracranial process -Defer to neruology and IM team for management attests: I have performed H&P and developed impression and plan of care for patient, discussed with dictator. I agree with dictated note, documented as a scribe
[2023-06-07] MEDS: LORazepam 2 MG/ML INJ IV PRN (08:14)
[2023-06-07 08:19] LABS: HCT 35.1 % (37.2-46.3); HGB 11.7 d/dL (12.0-15.0); MCHC 33.3 d/dL (32.0-37.0); MCV 93.1 FL (80.0-97.0); Mean Platelet Volume 11.1 FL (9.5-12.2); NRBC Per 100 WBC 0 X 10*3/uL (0.00-0.01); Platelet Count 105 X 10*3/uL (140-440); RBC 3.77 X 10*6/uL (4.10-5.20); RDW 12.4 % (11.5-14.5); WBC 3.26 X 10*3/uL (4.50-10.00)
[2023-06-07] MEDS ORDERED: LACTULOSE 20 GM/30 ML CUP PO SCH (09:00)
[2023-06-07] MEDS: FOLIC ACID 1 MG TAB PO SCH (09:10)
[2023-06-07] MEDS: DULoxetine HCL 60 MG CAPSULE.DR PO SCH (09:10)
[2023-06-07] MEDS: THIAMINE 100 MG TAB PO SCH (09:10)
--- NOTE | 2023-06-07 09:58 | P.PN ---
Subjective Progress Note Date: 06/07/23 Principal diagnosis: Hepatic encephalopathy This is a 32-year-old female who according to documentation came into the emergency department for confusion. Patient is currently very lethargic states she was just given medication. She is a poor historian and not giving any infor mation at this time. She keeps drifting back and forth into sleep. She is oriented 3 when awake. History obtained from chart. Patient has a long- standing history of alcohol and drug abuse, history of seizure disorder, liver disease, and. According to chart patient was recently had a positive hepatitis C antibody. Patient does state that she is still using IV drugs and drinking. Patient urine drug screen was positive for opiates, amphetamines, methamphetamines, benzodiazepines, cocaine, and THC. Patient's serum alcohol level also 81. Admitting ammonia level 30. Gastroenterology was consulted for hepatic encephalopathy. She had a Brain CT reporting no acute intracranial process. Minimal left periorbital soft tissue edema as well as right lateral scalp laceration. Labs: WBC 3.9 hemoglobin 12.5 hematocrit 37 platelet count 117,000 INR 1.0 sodium 133 potassium 3.5 nightly 23 creatinine 0.5 total bilirubin 1.9 AST 187 ALT 150 alkaline phosphatase 82 ammonia 18 06/05/2023 Patient was seen and examined today as a follow-up. She is much more awake and alert. She is denying any abdominal pain nausea or vomiting. She does state that she vomited 4 to day or 2 prior to coming into the hospital. Does admit to polysubstance abuse and admitted to using the day that she came in. She went down for a HIDA scan today reporting no cystic duct obstruction evident. With a normal ejection fraction. Repeat labs show WBC 3.4 hemoglobin 11.6 hematocrit 34.7 platelet count 112,000 total bilirubin 0.7 AST 110 ALT 120 alkaline phosphatase 86 ammonia level 26. Reported 2-3 bowel movements yesterday. No reports of black stools today. She is tolerating a regular diet. 06/06/2023 Patient seen and examined as a follow-up. No acute changes through the night. Patient is alert and oriented. According to nursing she is requesting Ativan and morphine. No current labs available. She is tolerating a regular diet without any complaints at this time. 06/07/2023 Patient seen and examined today in follow-up. No acute changes through the night. Patient states she feels a little weak today and tired. Denies any abdominal pain, nausea or vomiting. She's been tolerating her diet. She states she had no bowel movement yesterday, but did take her lactulose. Repeat ammonia level 22. Objective - Vital Signs Vital signs: Vital Signs Temp 98.0 F 06/07/23 02:00 Pulse 85 06/07/23 02:00 Resp 17 06/07/23 02:00 BP 119/64 06/07/23 02:00 Pulse Ox 97 06/07/23 02:00 FiO2 21 06/06/23 09:05 Intake & Output 06/06/23 06/07/23 06/07/23 18:59 06:59 18:59 Other: Voiding Method Toilet # Voids 4 3 # Bowel Movements 0 - Exam General appearance: The patient is alert, oriented, appears in no acute distress. HET: Head is normocephalic and atraumatic. Conjunctiva pink. Sclera anicteric. Neck: Supple without lymphadenopathy. Abdomen: Soft, nontender, nondistended with bowel sounds. No guarding or rigidity. Extremities: Normal skin color and turgor. No pedal edema Skin: No rashes, no jaundice Neurological: No focal deficits. Alert and oriented. - Labs CBC & Chem 7: 06/07/23 05:55 06/05/23 04:54 Labs: Abnormal Lab Results - Last 24 Hours (Table) 06/05/23 Range/Units 04:54 Hepatitis C Viral RNA Detected A (Not Detected) Microbiology - Last 24 Hours (Table) 06/04/23 08:00 Urine Culture - Final Urine,Voided Escherichia coli Assessment and Plan (1) Hepatic encephalopathy Narrative/Plan: 2-year-old female with known history of alcohol abuse and IV drug user presented to the emergency department with altered mental status changes. Difficult to obtain HPI and past medical history due to patient's mentation. She is in and out of sleep however when she was awake she was oriented 3. Not willing to give much of a history. States that she is still drinking and still using drugs. Denies any knowledge of cirrhosis of the liver. Patient had mild elevation of ammonia at 30, LFTs elevated consistent with underlying liver disease. However unclear if this is the cause of patient's altered mental status as patient has multiple drugs in her system including serum alcohol, opiates, amphetamines, methamphetamines, benzodiazepines, cocaine, and marijuana. We'll continue with lactulose, titrate to have 2-3 bowel movements daily. Likely alter mental status change was related to polysubstance abuse. May have some underlying component of hepatic encephalopathy related to underlying alcohol and drug abuse and hepatitis C which patient was diagnosed approximately 2 years ago without any current treatment and states that she is still using IV drugs. Current Visit: Yes Status: Acute Code(s): K76.82 - HEPATIC ENCEPHALOPATHY SNOMED Code(s): 24903519 (2) Elevated LFTs Narrative/Plan: The patient with long-standing history of alcohol abuse, polysubstance abuse and IV drug use. Patient with recent hepatitis C positive antibody on 05/16/2023. LFTs slightly elevated likely related to underlying alcoholic liver disease and hepatitis C. Patient also had gallbladder ultrasound done on 05/14/2023 with reported normal liver. Current Visit: Yes Status: Acute Code(s): R79.89 - OTHER SPECIFIED ABNORMAL FINDINGS OF BLOOD CHEMISTRY SNOMED Code(s): 779169857 (3) Hepatitis C antibody test positive Narrative/Plan: Discussed with patient importance of IV drug abstinence in order to be treated for hepatitis C. Genotype and quantitative pending currently Hepatitis C quantitative 91,600. Her knee 4.96. Discuss with patient needs to have IV drug abstinence and to follow-up with gastroenterology for treatment of hepatitis C. Current Visit: Yes Status: Acute Code(s): R76.8 - OTHER SPECIFIED ABNORMAL IMMUNOLOGICAL FINDINGS IN SERUM SNOMED Code(s): 904240710 (4) Alcohol use disorder Current Visit: Yes Status: Acute Priority: High Code(s): CPR9754 - SNOMED Code(s): 7510022 (5) Altered mental status Current Visit: Yes Status: Acute Priority: High Code(s): R41.82 - ALTERED MENTAL STATUS, UNSPECIFIED SNOMED Code(s): 553571305 (6) Polysubstance abuse Current Visit: No Status: Acute Priority: Medium Code(s): F19.10 - OTHER PSYCHOACTIVE SUBSTANCE ABUSE, UNCOMPLICATED SNOMED Code(s): 743354716 (7) Pancytopenia Narrative/Plan: Likely from underlying liver disease Current Visit: Yes Status: Acute Priority: Medium Code(s): D61.818 - OTHER PANCYTOPENIA SNOMED Code(s): 099061472 Plan: 1. Continue symptomatic and supportive care 2. Increase lactulose to 3 times a day, titrate to have 2-3 bowel movements daily 3. Repeat ammonia 4. Hepatitis C genotype and quantitative ordered and currently pending 5. Encourage ambulation 6. Recommend alcohol and illicit drug abstinence 7. No further workup indicated from gastroenterology. Patient will need to follow-up in office for hepatitis C serology Thank you for this consultation patient is cleared from gastroenterology for discharge, we will sign off at this time. Dr. Efra Hernandez I agree with the dictator's note, documented as a scribe by Meg Lee.
[2023-06-07] MEDS: SODIUM CHLORIDE 0.9% 1,000 ML IV SCH (10:33)
--- NOTE | 2023-06-07 10:39 | P.PN ---
Subjective Progress Note Date: 06/07/23 CHIEF COMPLAINT: Altered mental status HISTORY OF PRESENT ILLNESS: Patient lying in bed comfortably. She is tolerating diet. Per nursing she is eating whole tray. Patient reports that she's not feeling well. Medicine service did not discharge her because she was still requiring Ativan and pain medicine. Denies any nausea or vomiting. Afebrile. WBC 3.26 hgb 11.7 HIDA with normal EF 54% PHYSICAL EXAM: VITAL SIGNS: Reviewed GENERAL: Well-developed in no acute distress. HEENT: No sclera icterus. Extraocular movements grossly intact. Moist buccal mucosa. Head is atraumatic, normocephalic. Hears conversational speech. No nasal drainage. NECK: Supple without lymphadenopathy. CHEST: Non-labored respirations and equal bilateral excursions. CARDIOVASCULAR: Palpable 2+ radial pulses. ABDOMEN: Soft. Nondistended. minimal diffuse tenderness with palpation MUSCULOSKELETAL: No clubbing or cyanosis. NEUROLOGIC: No focal or lateralizing signs. Cranial nerves II through XII grossly intact. PSYCH: Appropriate affect. Alert and oriented to person, place and time. SKIN: Well perfused. Good skin turgor. ASSESSMENT: 1. Abdominal pain with nausea and vomiting improving 2. Cholelithiasis 3. Elevated liver enzymes trending down 4. Alcohol abuse 5. IV drug abuse 6. Hepatitis C 7. Toxic metabolic encephalopathy 8. UTI 9. Elevated ammonia level PLAN: -No surgical intervention planned at this time -Patient tolerating low fat diet -Continue supportive care Physician Brush Clearing Laborer note has been reviewed by physician. Signing provider agrees with the documented findings, assessment, and plan of care. Objective - Vital Signs Vital signs: Vital Signs Temp 97.7 F 06/07/23 07:47 Pulse 71 06/07/23 07:47 Resp 18 06/07/23 07:47 BP 107/66 06/07/23 07:47 Pulse Ox 100 06/07/23 07:47 FiO2 21 06/06/23 09:05 Intake & Output 06/06/23 06/07/23 06/07/23 18:59 06:59 18:59 Intake Total 180 Balance 180 Intake: Oral 180 Other: Voiding Method Toilet # Voids 4 3 # Bowel Movements 0 - Labs CBC & Chem 7: 06/07/23 05:55 06/05/23 04:54 Labs: Abnormal Lab Results - Last 24 Hours (Table) 06/05/23 06/07/23 Range/Units 04:54 05:55 WBC 3.26 L (4.50-10.00) X 10*3/uL RBC 3.77 L (4.10-5.20) X 10*6/uL Hgb 11.7 L (12.0-15.0) d/dL Hct 35.1 L (37.2-46.3) % Plt Count 105 L (140-440) X 10*3/uL Hepatitis C Viral RNA Detected A (Not Detected) Microbiology - Last 24 Hours (Table) 06/04/23 08:00 Urine Culture - Final Urine,Voided Escherichia coli
[2023-06-07] MEDS ORDERED: LACTULOSE 20 GM/30 ML CUP PO ONE (11:35)
[2023-06-07 12:06] LABS: % Iron Saturation 13.01 (12.00-45.00); ALT 98 U/L (8-44); AST 69 U/L (13-35); Albumin 3.5 d/dL (3.8-4.9); Alkaline Phosphatase 79 U/L (41-126); BUN/Creat Ratio 14.67 Ratio (12.00-20.00); Blood Urea Nitrogen 8.8 mg/dL (9.0-27.0); Calcium 8.3 mg/dL (8.7-10.3); Carbon Dioxide 23.7 mmol/L (21.6-31.8); Chloride 107 mmol/L (96-109); Globulin 2.5 d/dL (1.6-3.3); Glucose 86 mg/dL (70-110); Iron 45 UG/DL (50-170); Potassium 4.4 mmol/L (3.5-5.5); Sodium 139 mmol/L (135-145); Total Bilirubin <0.2 mg/dL (0.3-1.2); Total Iron Binding Capacity 346 UG/DL (228-460)
--- NOTE | 2023-06-07 13:50 | P.PN ---
Progress Note - Text Progress Note Date: 06/07/23 Interval History: Patient was seen in her bed and eating lunch and was directable and agreeable to speak with commercial lines underwriter in the room. Currently, the patient is not reporting any suicidal or homicidal ideation, intention, and/or plan. She is not reporting any auditory or visualizations. She denies any paranoia or other delusions. The patient reports that she feels "a little nauseous with some hot and cold flashes." She reports that gabapentin has helped her in the past deal with these feelings. She was informed that gabapentin is now a controlled substance and given her history of substance abuse, it is difficult to prescribe this medication due to risks of adverse events. She has been adherent with her medication is not reporting any significant side effects. She was counseled at length on importance of medication adherence appropriate outpatient follow-up. The patient is desiring outpatient rehabilitation and not inpatient at this time. Mental Status Exam: General Appearance: Patient appears to be stated age is alert, directable, and cooperative. Multiple tattoos. Fair hygiene and grooming. Behavior: Patient is calmly seated without any agitated behavior. Speech: Patient's speech is fluent and nonpressured. Mood/Affect: Mood is improving mildly, affect is congruent and constricted. Suicidality/Homicidality: Patient denies having any suicidal or homicidal ideation intent or plan. Perceptions: Patient denies any visual hallucinations and denies any auditory hallucinations Though content/process: There is no evidence of any delusional thought content and thought process is linear and goal-directed. Memory and concentration: AOX3, grossly intact for the purposes of this session Judgment and insight: Improving mildly Vital Signs Temp 97.7 F 06/07/23 07:47 Pulse 71 06/07/23 07:47 Resp 18 06/07/23 07:47 BP 107/66 06/07/23 07:47 Pulse Ox 100 06/07/23 07:47 FiO2 21 06/06/23 09:05 Intake & Output 06/06/23 06/07/23 06/07/23 18:59 06:59 18:59 Intake Total 180 Balance 180 Intake: Oral 180 Other: Voiding Method Toilet # Voids 4 3 # Bowel Movements 0 Laboratory Results WBC 3.26 X 10*3/uL (4.50-10.00) L 06/07/23 05:55 RBC 3.77 X 10*6/uL (4.10-5.20) L 06/07/23 05:55 Hgb 11.7 d/dL (12.0-15.0) L 06/07/23 05:55 Hct 35.1 % (37.2-46.3) L 06/07/23 05:55 MCV 93.1 FL (80.0-97.0) 06/07/23 05:55 MCH 31.0 pg (27.0-32.0) 06/07/23 05:55 MCHC 33.3 d/dL (32.0-37.0) 06/07/23 05:55 RDW 12.4 % (11.5-14.5) 06/07/23 05:55 Plt Count 105 X 10*3/uL (140-440) L 06/07/23 05:55 MPV 11.1 FL (9.5-12.2) 06/07/23 05:55 Immature Gran % (Auto) 0 % 06/05/23 04:54 Absolute Nucleated RBC 0 % 06/07/23 05:55 Neutrophils % 44.2 % 06/05/23 04:54 Lymphocytes % 43.6 % 06/05/23 04:54 Monocytes % 8.7 % 06/05/23 04:54 Eosinophils % 3.2 % 06/05/23 04:54 Basophils % 0.3 % 06/05/23 04:54 Immature Gran # 0 X 10*3/uL 06/05/23 04:54 Neutrophils # 1.52 X 10*3/uL (1.80-7.70) L 06/05/23 04:54 Lymphocytes # 1.50 X 10*3/uL (0.90-5.00) 06/05/23 04:54 Monocytes # 0.30 X 10*3/uL (0.20-1.00) 06/05/23 04:54 Eosinophils # 0.11 X 10*3/uL (0.04-0.35) 06/05/23 04:54 Basophils # 0.01 X 10*3/uL (0.00-0.10) 06/05/23 04:54 NRBC/100 WBC Diff 0 X 10*3/uL (0.00-0.01) 06/07/23 05:55 PT 10.6 sec (9.0-12.0) 06/03/23 20:40 INR 1.0 (<1.2) 06/03/23 20:40 APTT 25.9 sec (22.0-30.0) 06/03/23 20:40 Sodium 139 mmol/L (135-145) 06/07/23 05:55 Potassium 4.4 mmol/L (3.5-5.5) 06/07/23 05:55 Chloride 107 mmol/L (96-109) 06/07/23 05:55 Carbon Dioxide 23.7 mmol/L (21.6-31.8) 06/07/23 05:55 Anion Gap 8.30 mmol/L (4.00-12.00) 06/07/23 05:55 BUN 8.8 mg/dL (9.0-27.0) L 06/07/23 05:55 Creatinine 0.6 mg/dL (0.6-1.5) 06/07/23 05:55 Est GFR (CKD-EPI) 121 (>=60) 06/07/23 05:55 Est GFR (CKD-EPI)AfAm >90 (>60 ml/min/1.73 sqM) 06/04/23 05:52 Est GFR (CKD-EPI)NonAf >90 (>60 ml/min/1.73 sqM) 06/04/23 05:52 BUN/Creatinine Ratio 14.67 Ratio (12.00-20.00) 06/07/23 05:55 Glucose 86 mg/dL (70-110) 06/07/23 05:55 Calcium 8.3 mg/dL (8.7-10.3) L 06/07/23 05:55 Phosphorus 4.5 mg/dL (2.5-4.5) 06/04/23 05:52 Magnesium 1.7 mg/dL (1.6-2.3) 06/04/23 05:52 Iron 45 UG/DL (50-170) L 06/07/23 05:55 TIBC 346 UG/DL (228-460) 06/07/23 05:55 % Saturation 13.01 (12.00-45.00) 06/07/23 05:55 Transferrin 247.0 mg/dL (204.0-354.0) 06/07/23 05:55 Ferritin 136.0 ng/mL (10.0-291.0) 06/07/23 05:55 Total Bilirubin <0.2 mg/dL (0.3-1.2) L 06/07/23 05:55 AST 69 U/L (13-35) H 06/07/23 05:55 ALT 98 U/L (8-44) H 06/07/23 05:55 Alkaline Phosphatase 79 U/L (41-126) 06/07/23 05:55 Ammonia 22 umol/L (<30) 06/07/23 08:45 Troponin I <0.012 ng/mL (0.000-0.034) 06/03/23 20:40 Total Protein 6.0 d/dL (6.2-8.2) L 06/07/23 05:55 Albumin 3.5 d/dL (3.8-4.9) L 06/07/23 05:55 Globulin 2.5 d/dL (1.6-3.3) 06/07/23 05:55 Albumin/Globulin Ratio 1.40 Ratio (1.60-3.17) L 06/07/23 05:55 Vitamin B12 307.0 pg/mL (200.0-944.0) 06/07/23 05:55 Folate 9.70 ng/mL (4.40-31.00) 06/07/23 05:55 Urine Color Yellow 06/04/23 08:00 Urine Appearance Cloudy (Clear) H 06/04/23 08:00 Urine pH 6.0 (5.0-8.0) 06/04/23 08:00 Ur Specific [place] 1.027 (1.001-1.035) 06/04/23 08:00 Urine Protein 1+ (Negative) H 06/04/23 08:00 Urine Glucose (UA) Negative (Negative) 06/04/23 08:00 Urine Ketones 1+ (Negative) H 06/04/23 08:00 Urine Blood Small (Negative) H 06/04/23 08:00 Urine Nitrite Negative (Negative) 06/04/23 08:00 Urine Bilirubin Negative (Negative) 06/04/23 08:00 Urine Urobilinogen 3.0 mg/dL (<2.0) 06/04/23 08:00 Ur Leukocyte Esterase Large (Negative) H 06/04/23 08:00 Urine RBC 8 /hpf (0-5) H 06/04/23 08:00 Urine WBC 144 /hpf (0-5) H 06/04/23 08:00 Urine WBC Clumps Few /hpf (None) H 06/04/23 08:00 Ur Squamous Epith Cells 4 /hpf (0-4) 06/04/23 08:00 Urine Bacteria Moderate /hpf (None) H 06/04/23 08:00 Hyaline Casts 118 /lpf (0-2) H 06/04/23 08:00 Urine Mucus Few /hpf (None) H 06/04/23 08:00 Urine HCG, Qual Not Detected (Not Detectd) 06/04/23 08:00 Urine Opiates Screen Detected (NotDetected) H 06/04/23 08:00 Ur Oxycodone Screen Not Detected (NotDetected) 06/04/23 08:00 Urine Methadone Screen Not Detected (NotDetected) 06/04/23 08:00 Ur Propoxyphene Screen Not Detected (NotDetected) 06/04/23 08:00 Ur Barbiturates Screen Not Detected (NotDetected) 06/04/23 08:00 U Tricyclic Antidepress Not Detected (NotDetected) 06/04/23 08:00 Ur Phencyclidine Scrn Not Detected (NotDetected) 06/04/23 08:00 Ur Amphetamines Screen Detected (NotDetected) H 06/04/23 08:00 U Methamphetamines Scrn Detected (NotDetected) H 06/04/23 08:00 U Benzodiazepines Scrn Detected (NotDetected) H 06/04/23 08:00 Urine Cocaine Screen Detected (NotDetected) H 06/04/23 08:00 U Marijuana (THC) Screen Detected (NotDetected) H 06/04/23 08:00 Serum Alcohol 81 mg/dL 06/03/23 20:40 Hepatitis C Viral RNA Detected (Not Detected) A 06/05/23 04:54 Hepatitis C RNA Quant 10145 IU/mL 06/05/23 04:54 HCV RNA PCR log IUs/ml 4.96 IU/mL 06/05/23 04:54 Assessment Substance-induced depressive disorder Generalized anxiety disorder Borderline personality disorder Polysubstance abuse including cocaine, benzodiazepines, opiates, and other psychoactive substances Urinary tract infection Plan: -Continue your medical management -At this time patient DOES NOT meet criteria for inpatient psychiatric admission. The patient will remain at chronically high risk for harm to self due to her polysubstance abuse. Her primary diagnosis is her polysubstance use disorder. She is not endorsing any suicidal or homicidal ideation, intention, and/or plan at this time. She is not overtly manic or psychotic. She is alert and oriented in all spheres. -Medications: Continue Cymbalta 60 mg by mouth twice a day for depression/anxiety/neuropathic pain Continue Remeron 15 mg by mouth at bedtime for depression/insomnia -Patient does not require one-to-one sitter -Psychiatry will sign off at this time. Recommend outpatient psychiatric follow-up as well as resources for intensive outpatient rehabilitation. Patient does not appear to be interested in inpatient substance-abuse rehabilitation at this time. Please call or reconsult us if necessary.
[2023-06-07 16:00] VITALS: BP 137/86; PULSE 81; RESP 17; TEMP 98
[2023-06-10 15:32] LABS: HCV Qualitative Result DETECTED (Not detected); HCV Quant Log 4.89 (<1.08)
[2023-06-11 14:26] LABS: Methylmalonic Acid 0.57 umol/L (<0.40)
== END 2023-06-07 15:58 | disposition home or self-care (01) | DRG 773 ==
LOC: EC 19:51 → 4SSUR 23:49
PROVIDERS: ADMIT Family Medicine; ATTEND Family Medicine
PROC: 05HD33Z Insertion of Infusion Device into Right Cephalic Vein, Percutaneous Approach (ICD-10-PCS; principal; 2023-06-06 09:00)
DX: F10.14 Alcohol abuse with alcohol-induced mood disorder (principal); F11.14 Opioid abuse with opioid-induced mood disorder; G92.8 Other toxic encephalopathy; D61.818 Other pancytopenia; K76.82 Hepatic encephalopathy; K80.10 Calculus of gallbladder with chronic cholecystitis without obstruction; E88.09 Other disorders of plasma-protein metabolism, not elsewhere classified; F15.14 Other stimulant abuse with stimulant-induced mood disorder; F14.14 Cocaine abuse with cocaine-induced mood disorder; F31.9 Bipolar disorder, unspecified; K70.9 Alcoholic liver disease, unspecified; F60.3 Borderline personality disorder; Z28.310 Unvaccinated for COVID-19; B19.20 Unspecified viral hepatitis C without hepatic coma; N39.0 Urinary tract infection, site not specified; B96.20 Unspecified Escherichia coli [E. coli] as the cause of diseases classified elsewhere; E86.0 Dehydration; F41.1 Generalized anxiety disorder; F41.0 Panic disorder [episodic paroxysmal anxiety]; S01.01XA Laceration without foreign body of scalp, initial encounter; M51.36 Other intervertebral disc degeneration, lumbar region; Y90.4 Blood alcohol level of 80-99 mg/100 ml; F17.200 Nicotine dependence, unspecified, uncomplicated; Z71.6 Tobacco abuse counseling; Z98.84 Bariatric surgery status; Z59.01 Sheltered homelessness; Z88.8 Allergy status to other drugs, medicaments and biological substances
CPT/HCPCS: 36415; 70450; 78227; 80053; 80306; 80320; 81001; 81025; 82140; 82525; 82607; 82728; 82746; 83540; 83550; 83735; 83921; 84100; 84484; 85025; 85027; 85610; 85730; 87077; 87086; 87186; 87522; 87902; 93005; 94760; 96361; 96375; 96376; 99285

== ENCOUNTER 2023-07-22 21:18 | Inpatient (IN) | payer OTHER ==
[2023-07-22] MEDS ORDERED: SODIUM CHLORIDE 0.9% 1,000 ML IV ONE (21:44)
--- NOTE | 2023-07-22 21:51 | ED ---
General Adult HPI - General Chief complaint: Overdose Stated complaint: OVERDOSE Time Seen by Provider: 07/22/23 21:42 Source: EMS Mode of arrival: EMS - History of Present Illness Initial comments: This is a 32-year-old female that was brought into the emergency department for reported overdose. The patient is been seen in the emergency department multiple times for overdoses and polysubstance abuse. The patient is reported to have ingested methamphetamine and heroin and was given a dose of Narcan per EMS. On arrival, the patient was disheveled and had unkempt appearance. The patient was unable to provide any further answers to any questions however was maintaining her own airway. - Related Data Previous Rx's Medication Instructions Recorded DULoxetine HCL [Cymbalta] 60 mg PO BID 15 Days #30 cap 06/06/23 Folic Acid 0.5 mg PO DAILY 30 Days #30 tab 06/06/23 Lactulose [Cephulac] 30 gm PO BID 30 Days #60 ml 06/06/23 Mirtazapine [Remeron] 15 mg PO HS 15 Days #15 tab 06/06/23 Thiamine [Vitamin B-1] 100 mg PO DAILY 30 Days #30 tab 06/06/23 Allergies Allergy/AdvReac Type Severity Reaction Status Date / Time trazodone AdvReac dizziness Verified 07/22/23 21:23 Review of Systems ROS Statement: Those systems with pertinent positive or pertinent negative responses have been documented in the HPI. ROS Other: All systems not noted in ROS Statement are negative. Limitations: ROS unobtainable due to patients medical condition Past Medical History Past Medical History: Liver Disease, Seizure Disorder, Supraventricular Tach ycardia (SVT) Additional Past Medical History / Comment(s): SVT with cardiac ablation, lumbar DDD, bulging lumbar disc, ETOH abuse, alcohol withdrawals, pt states she has a seizure disorder and has alcohol withdrawal seizures with last seizure in 2020, drug abuse/pt states IV drug abuse, hepatitis C, lumbar DDD/bulging discs, migraines, sinus problems, past bilateral arm fractures/casted, past broken left ankle and leg/casted, ruptured spleen with surgery. History of Any Multi-Drug Resistant Organisms: ESBL Date of last positivie culture/infection: 01/17/22 MDRO Source:: ESBL URINE Past Surgical History: Bariatric Surgery, Cardiac Ablation, EPS, Orthopedic Surgery Additional Past Surgical History / Comment(s): Cardiac ablation for SVT, gastric sleeve, spleen repair, I&D L wrist. Past Anesthesia/Blood Transfusion Reactions: No Reported Reaction Additional Past Anesthesia/Blood Transfusion Reaction / Comment(s): Pt has clausterphobia. Past Psychological History: Anxiety, Bipolar, Depression, Panic Disorder Smoking Status: Current every day smoker Past Alcohol Use History: Daily Past Drug Use History: Unable to Obtain - Past Family History Father History Unknown: Yes Family Medical History: COPD, Diabetes Mellitus Mother History Unknown: Yes Family Medical History: Asthma Additional Family Medical History / Comment(s): pt reports mother had cyclic vomiting issues, substance abuse history Sister(s) Family Medical History: Supraventricular Tachycardia (SVT) Additional Family Medical History / Comment(s): Sister had SVT. She is recently from overdose. General Exam Limitations: altered mental status (ANOx0, not answering questions, minimally responsive) General appearance: in no apparent distress, other (Disheveled appearance) Head exam: Present: atraumatic, normocephalic, normal inspection Eye exam: Present: normal appearance, PERRL Pupils: Present: normal accommodation ENT exam: Present: normal exam, normal oropharynx, mucous membranes moist Neck exam: Present: normal inspection, full ROM Respiratory exam: Present: normal lung sounds bilaterally. Absent: respiratory distress Cardiovascular Exam: Present: normal rhythm, tachycardia GI/Abdominal exam: Present: soft, normal bowel sounds Extremities exam: Present: normal inspection, full ROM Back exam: Present: normal inspection, full ROM Neurological exam: Present: altered (ANOx0, minimally responsive) Psychiatric exam: Present: other (Minimally responsive) Skin exam: Present: warm, dry, other (Multiple excoriations and abrasions noted) Course Vital Signs 07/22/23 21:19 Temperature 97.5 F L Pulse Rate 130 H Respiratory 14 Rate Blood Pressure 134/92 O2 Sat by Pulse 94 L Oximetry EKG Findings - EKG Comments: EKG Findings:: An EKG was obtained and was interpreted by myself showing a rate of 116, DC interval 144, QR spiritism 90 and QTC of 386. This EKG showed a sinus tachycardia with no ST segment elevation or depression noted. Medical Decision Making - Medical Decision Making Was pt. sent in by a medical professional or institution (, PA, MUNICIPAL FIREFIGHTER, urgent care, hospital, or snf...) When possible be specific @ -No Did you speak to anyone other than the patient for history (EMS, parent, family, police, friend...)? What history was obtained from this source @ -Yes, EMS who stated they gave the patient Narcan Did you review nursing and triage notes (agree or disagree)? Why? @ -I reviewed and agree with nursing and triage notes Were old charts reviewed (outside hosp., previous admission, EMS record, old EKG, old radiological studies, urgent care reports/EKG's, snf records)? Report findings @ -No old charts were reviewed Differential Diagnosis (chest pain, altered mental status, abdominal pain women, abdominal pain men, vaginal bleeding, weakness, fever, dyspnea, syncope, headache, dizziness, GI bleed, back pain, seizure, CVA, palpatations, mental health)? @ -Opiate overdose, methadone thiamine overdose, alcohol intoxication EKG interpreted by me (3pts min.). @ -None X-rays interpreted by me (1pt min.). @ -None done CT interpreted by me (1pt min.). @ -None done U/S interpreted by me (1pt. min.). @ -None done What testing was considered but not performed or refused? (CT, X-rays, U/S, labs)? Why? @ -None What meds were considered but not given or refused? Why? @ -None Did you discuss the management of the patient with other professionals (professionals i.e. , PA, MUNICIPAL FIREFIGHTER, lab, RT, psych nurse, social media project manager, atmospheric physics professor, teacher, licensed loan officer assistant, caser)? Give summary @ -Yes, admitting physician was contacted regarding patient's admission. Was smoking cessation discussed for >3mins.? @ -No Was critical care preformed (if so, how long)? @ -No Were there social determinants of health that impacted care today? How? (Home lessness, low income, unemployed, alcoholism, drug addiction, transportation, low edu. Level, literacy, decrease access to med. care, longterm, rehab)? @ -Drug addiction Was there de-escalation of care discussed even if they declined (Discuss DNR or withdrawal of care, Hospice)? DNR status @ -No What co-morbidities impacted this encounter? (DM, HTN, Smoking, COPD, CAD, Cancer, CVA, ARF, Chemo, Hep., AIDS, mental health diagnosis, sleep apnea, morbid obesity)? @ -None Was patient admitted / discharged? Hospital course, mention meds given and route, prescriptions, significant lab abnormalities, going to OR and other pertinent info. @ -The patient was seen and evaluated emergency department. Physical exam, the patient was resting in bed without any acute distress but was minimally responsive secondary to intoxication. The patient was maintaining her own airwa y and oxygen saturations were 100% on room air. Laboratory workup was obtained and was significant for an EtOH of 387. Due to the patient's significant alcohol intoxication, the patient will be admitted for further workup and evaluation and treatment. The patient remained stable and was admitted in stable condition. Undiagnosed new problem with uncertain prognosis? @ -No Drug Therapy requiring intensive monitoring for toxicity (Heparin, Nitro, Insulin, Cardizem)? @ -No Were any procedures done? @ -No Diagnosis/symptom? @ -Alcohol intoxication, polysubstance abuse, overdose Acute, or Chronic, or Acute on Chronic? @ -Acute on chronic Uncomplicated (without systemic symptoms) or Complicated (systemic symptoms)? @ -Complicated Side effects of treatment? @ -No Exacerbation, Progression, or Severe Exacerbation? @ -No Poses a threat to life or bodily function? How? (Chest pain, [place], [place], pneumonia, PE, COPD, DKA, ARF, appy, cholecystitis, CVA, Diverticulitis, Homicidal, Suicidal, threat to staff... and all critical care pts) @ -Yes, continued alcohol intoxication and overdose can lead to respiratory distress, permanent damage and possible . - Lab Data Result diagrams: 07/22/23 21:49 07/22/23 21:49 Lab Results 07/22/23 07/22/23 Range/Units 21:49 21:49 WBC 6.3 (3.8-10.6) k/uL RBC 4.78 (3.80-5.40) m/uL Hgb 15.2 (11.4-16.0) gm/dL Hct 44.6 (34.0-46.0) % MCV 93.2 (80.0-100.0) fL MCH 31.7 (25.0-35.0) pg MCHC 34.0 (31.0-37.0) g/dL RDW 13.6 (11.5-15.5) % Plt Count 254 D (150-450) k/uL MPV 8.1 Neutrophils % 44 % Lymphocytes % 48 % Monocytes % 3 % Eosinophils % 1 % Basophils % 1 % Neutrophils # 2.8 (1.3-7.7) k/uL Lymphocytes # 3.0 (1.0-4.8) k/uL Monocytes # 0.2 (0-1.0) k/uL Eosinophils # 0.1 (0-0.7) k/uL Basophils # 0.0 (0-0.2) k/uL Sodium 144 (137-145) mmol/L Potassium 3.9 (3.5-5.1) mmol/L Chloride 105 (98-107) mmol/L Carbon Dioxide 20 L (22-30) mmol/L Anion Gap 19 mmol/L BUN 10 (7-17) mg/dL Creatinine 0.88 (0.52-1.04) mg/dL Est GFR (CKD-EPI)AfAm >90 (>60 ml/min/1.73 sqM) Est GFR (CKD-EPI)NonAf 87 (>60 ml/min/1.73 sqM) Glucose 152 H (74-99) mg/dL Calcium 9.2 (8.4-10.2) mg/dL Magnesium 2.2 (1.6-2.3) mg/dL Total Bilirubin 0.6 (0.2-1.3) mg/dL AST 113 H (14-36) U/L ALT 88 H (4-34) U/L Alkaline Phosphatase 106 (38-126) U/L Total Protein 9.1 H (6.3-8.2) g/dL Albumin 5.0 (3.5-5.0) g/dL Lipase 225 (23-300) U/L Serum Alcohol 387 H* mg/dL Disposition Clinical Impression: Alcohol intoxication, Overdose, Polysubstance (excluding opioids) dependence, daily use Disposition: ADMITTED IP TO THIS [facility] Condition: Stable Is patient prescribed a controlled substance at d/c from ED?: No Referrals: None,Stated [Primary Care Provider] - 1-2 days Time of Disposition: 22:30 Decision to Admit Reason: Admit from EC Decision Date: 07/22/23 Decision Time: 22:30
[2023-07-22 22:15] LABS: ALT 88 U/L (4-34); AST 113 U/L (14-36); African American GFR (CKD) >90 (>60 ml/min/1.73 sqM); Alkaline Phosphatase 106 U/L (38-126); Anion Gap 19 mmol/L; Blood Urea Nitrogen 10 mg/dL (7-17); Calcium 9.2 mg/dL (8.4-10.2); Carbon Dioxide 20 mmol/L (22-30); Chloride 105 mmol/L (98-107); Glucose 152 mg/dL (74-99); Lipase 225 U/L (23-300); Magnesium 2.2 mg/dL (1.6-2.3); Non-African American GFR(CKD) 87 (>60 ml/min/1.73 sqM); Potassium 3.9 mmol/L (3.5-5.1); Sodium 144 mmol/L (137-145); Total Bilirubin 0.6 mg/dL (0.2-1.3); Total Protein 9.1 g/dL (6.3-8.2)
[2023-07-22 22:18] LABS: Basophils % (A) 1 %; Eosinophils # (A) 0.1 k/uL (0-0.7); Eosinophils % (A) 1 %; HCT 44.6 % (34.0-46.0); HGB 15.2 gm/dL (11.4-16.0); Lymphocytes % (A) 48 %; MCH 31.7 pg (25.0-35.0); MCV 93.2 fL (80.0-100.0); Mean Platelet Volume 8.1; Monocytes # (A) 0.2 k/uL (0-1.0); Monocytes % (A) 3 %; Neutrophils # (A) 2.8 k/uL (1.3-7.7); Neutrophils % (A) 44 %; RBC 4.78 m/uL (3.80-5.40); RDW 13.6 % (11.5-15.5); WBC 6.3 k/uL (3.8-10.6)
[2023-07-22 22:19] LABS: Platelet Count 254 k/uL (150-450)
[2023-07-22 22:25] LABS: Alcohol 387 mg/dL
[2023-07-22] MEDS ORDERED: NALOXONE 0.4 MG/ML 1 ML VIAL IV PRN (22:49)
[2023-07-22] MEDS: SODIUM CHLORIDE 0.9% 1,000 ML IV SCH (22:53)
[2023-07-23] MEDS ORDERED: LORazepam 0.5 MG TAB PO PRN (02:33)
[2023-07-23] MEDS ORDERED: LORazepam 2 MG/ML INJ IV PRN (02:33)
[2023-07-23] MEDS ORDERED: LORazepam 1 MG TAB PO PRN (02:33)
--- NOTE | 2023-07-23 02:41 | P.HPIM ---
History of Present Illness H&P Date: 07/22/23 Chief Complaint: alcohol intoxication 33-year-old female with polysubstance abuse, hepatitis Patient was brought in by EMS after being found with altered mental status, at time of my evaluation patient started to wake up a little bit she denies any chest pain trouble breathing denies any nausea vomiting fevers or chills denies any GI bleeding. She admits to polysubstance abuse she reports methamphetamine, heroin, and alcohol abuse. She is homeless. She also reports history of hepatitis. She denies any history of diabetes mellitus hypertension , she does report history of liver cirrhosis She also complains of epigastric abdominal pain again denies any nausea vomiting or GI bleeding. She describes the pain as 5 out of 10 in severity epigastric in nature nonradiating She admits to tobacco smoking, polysubstance abuse including heroin and methamphetamine, and alcohol abuse Review of systems review of systems Pertinent positives as noted in HPI. All other systems were reviewed and are negative on exam Constitutional: No acute distress, conversant, disheveled Eyes: Anicteric sclerae, moist conjunctiva, Pupils equal round reactive to light ENMT: NC/AT Oropharynx clear, no erythema, or exudates Neck: Supple, no masses, or JVD No carotid bruits No thyromegaly Lungs: Clear to auscultation Clear to percussion Normal respiratory effort, no accessory muscle use Cardiovascular: Heart regular in rate and rhythm, No murmurs, gallops, or rubs No peripheral edema Abdominal: Soft Discomfort to palpation in the epigastric region, no guarding, rebound or rigidity Abdomen moving with respiration Normoactive bowel sounds No hepatomegaly, No splenomegaly No palpable mass No abdominal wall hernia noted Extremities: No digital cyanosis No clubbing Pedal pulses intact and symmetrical Radial pulses intact and symmetrical No calf tenderness Psychiatric: Alert and oriented to person, place and time Neuro Muscles Strength 5/5 in all 4 extremities Sensation to light touch grossly present throughout Cranial nerves II-XII grossly intact Lymphatics: no palpable cervical or supraclavicular lymph nodes Past Medical History Past Medical History: Liver Disease, Seizure Disorder, Supraventricular Tachycardia (SVT) Additional Past Medical History / Comment(s): SVT with cardiac ablation, lumbar DDD, bulging lumbar disc, ETOH abuse, alcohol withdrawals, pt states she has a seizure disorder and has alcohol withdrawal seizures with last seizure in 2020, drug abuse/pt states IV drug abuse, hepatitis C, lumbar DDD/bulging discs, migraines, sinus problems, past bilateral arm fractures/casted, past broken left ankle and leg/casted, ruptured spleen with surgery. History of Any Multi-Drug Resistant Organisms: ESBL Date of last positivie culture/infection: 01/17/22 MDRO Source:: ESBL URINE Past Surgical History: Bariatric Surgery, Cardiac Ablation, EPS, Orthopedic Surgery Additional Past Surgical History / Comment(s): Cardiac ablation for SVT, gastric sleeve, spleen repair, I&D L wrist. Past Anesthesia/Blood Transfusion Reactions: No Reported Reaction Additional Past Anesthesia/Blood Transfusion Reaction / Comment(s): Pt has clausterphobia. Past Psychological History: Anxiety, Bipolar, Depression, Panic Disorder Smoking Status: Current every day smoker Past Alcohol Use History: Daily Past Drug Use History: Unable to Obtain - Past Family History Father History Unknown: Yes Family Medical History: COPD, Diabetes Mellitus Mother History Unknown: Yes Family Medical History: Asthma Additional Family Medical History / Comment(s): pt reports mother had cyclic vomiting issues, substance abuse history Sister(s) Family Medical History: Supraventricular Tachycardia (SVT) Additional Family Medical History / Comment(s): Sister had SVT. She is recently from overdose. Medications and Allergies Home Medications Medication Instructions Recorded Confirmed Type DULoxetine HCL [Cymbalta] 60 mg PO BID 15 Days #30 cap 06/06/23 Rx Folic Acid 0.5 mg PO DAILY 30 Days #30 tab 06/06/23 Rx Lactulose [Cephulac] 30 gm PO BID 30 Days #60 ml 06/06/23 Rx Mirtazapine [Remeron] 15 mg PO HS 15 Days #15 tab 06/06/23 Rx Thiamine [Vitamin B-1] 100 mg PO DAILY 30 Days #30 tab 06/06/23 Rx Allergies Allergy/AdvReac Type Severity Reaction Status Date / Time trazodone AdvReac dizziness Verified 07/22/23 21:23 Physical Exam Vitals: Vital Signs Temp Pulse Pulse Resp BP BP Pulse Ox 07/23/23 00:30 89 14 121/79 99 07/22/23 23:30 97 15 130/80 98 07/22/23 23:00 101 H 16 133/94 98 09/04/23 22:23 98 07/22/23 21:19 97.5 F L 130 H 14 134/92 94 L Intake and Output 07/22/23 07/22/23 07/23/23 14:59 22:59 06:59 Intake Total 118 Balance 118 Intake: Oral 118 Other: Weight 63.503 kg Results CBC & Chem 7: 07/22/23 21:49 07/22/23 21:49 Labs: Abnormal Lab Results - Last 24 Hours (Table) 07/22/23 Range/Units 21:49 Carbon Dioxide 20 L (22-30) mmol/L Glucose 152 H (74-99) mg/dL AST 113 H (14-36) U/L ALT 88 H (4-34) U/L Total Protein 9.1 H (6.3-8.2) g/dL Serum Alcohol 387 H* mg/dL Assessment and Plan Assessment: 33-year-old female with polysubstance abuse was brought in by EMS for altered mental status is discussed the case with the ED doctor and accepted the admission for acute alcohol intoxication and polysubstance abuse with anticipated length of stay more than 2 midnights Polysubstance abuse Acute severe alcohol intoxication with delirium Alcohol withdrawal precautions Seizure precautions Fall precautions IV fluid hydration normal saline status post 1 L bolus continued 75 mL per hour Thiamine by mouth daily Benzodiazepines per CIWA scale Monitor vital signs Polysubstance abuse Patient counseled to quit drug of abuse acute gastritis protonix 40 mg po daily maalox PRN Blood work showing hemoglobin of 15.2 unremarkable White count 6.3 Sodium 144 potassium 3.9 BUN10 creatinine 0.88 AST 113, ALT 88 Alcohol level 387 Full code DVT prophylaxis mechanical
[2023-07-23] MEDS ORDERED: ONDANSETRON 4 MG/2 ML VIAL IVP PRN (02:42)
[2023-07-23] MEDS ORDERED: MAG HYDROX/AL HYDROX/SIMETH 30 ML CUP PO PRN (02:42)
[2023-07-23] MEDS: LORazepam 2 MG/ML INJ IV PRN ×4 (05:41→23:25)
[2023-07-23] MEDS: PANTOPRAZOLE 40 MG TABLET PO SCH (06:23)
[2023-07-23 09:48] LABS: ALT 70 U/L (4-34); AST 94 U/L (14-36); African American GFR (CKD) >90 (>60 ml/min/1.73 sqM); Alkaline Phosphatase 76 U/L (38-126); Anion Gap 8 mmol/L; Blood Urea Nitrogen 12 mg/dL (7-17); Calcium 8.6 mg/dL (8.4-10.2); Carbon Dioxide 25 mmol/L (22-30); Chloride 103 mmol/L (98-107); Glucose 143 mg/dL (74-99); Non-African American GFR(CKD) >90 (>60 ml/min/1.73 sqM); Potassium 3.6 mmol/L (3.5-5.1); Sodium 136 mmol/L (137-145); Total Bilirubin 0.8 mg/dL (0.2-1.3); Total Protein 7.2 g/dL (6.3-8.2)
--- NOTE | 2023-07-23 12:12 | P.HPIM ---
History of Present Illness H&P Date: 07/23/23 Hospital Course: 33-year-old female with polysubstance abuse, IV drug user, liver cirrhosis?, Alcohol dependence presenting with acute encephalopathy secondary to acute alcohol intoxication. Hemodynamically stable. Blood work remarkable for elevated AST at 113, the elevated at 88, total bilirubin 0.6, lipase 225, serum alcohol level 387. Being monitored for alcohol withdrawal. Subjective: Patient seen and examined at bedside. No acute events overnight. Claims that she drinks 1-2 fifths of vodka per day. She also uses multiple drugs, IV and inhalation. She mostly uses her arms or IV drug use. She is currently homeless. Pertinent positives and negatives as discussed above, a complete review of systems was performed and all other systems are negative. Vitals Signs Reviewed. General: nontoxic, no distress, appears at stated age Derm: warm, dry, multiple track mabry on both arms Head: atraumatic, normocephalic, symmetric Eyes: EOMI, no lid lag, anicteric sclera Mouth: no lip lesion, mucus membranes moist Cardiovascular: S1S2 reg, no murmur Lungs: CTA bilateral, no rhonchi, no rales , no accessory muscle use Abdominal: soft, nontender to palpation, no guarding, no appreciable organomegaly Ext: no gross muscle atrophy, no edema, no contractures Neuro: CN II-XI grossly intact, no focal neuro deficits Psych: Alert, oriented, agitated Data Reviewed Today: Pertinent Labs: Sodium 136, potassium 2.6, creatinine 0.61, was 143, AST 94, ALT 70 Imaging: No new imaging Assessment and Plan: Active: Acute alcohol intoxication Alcohol dependence with impending withdrawal Transaminitis Polysubstance abuse IV drug use Acute gastritis Homelessness -Continue IV fluid, normal saline at 75 mL an hour -Thiamine oral daily -Ativan IV, and oral as needed, per [facility] -Liver US ordered, questionable history of cirrhosis -Counseled regarding cessation of IV drug use and other substances -Protonix 40mg PO continue - SW consult DVT ppx: lovenox Code status: full code Anticipated discharge place: pending clinical course Anticipated discharge time: pending clinical course Past Medical History Past Medical History: Liver Disease, Seizure Disorder, Supraventricular Tachycardia (SVT) Additional Past Medical History / Comment(s): SVT with cardiac ablation, lumbar DDD, bulging lumbar disc, ETOH abuse, alcohol withdrawals, pt states she has a seizure disorder and has alcohol withdrawal seizures with last seizure in 2020, drug abuse/pt states IV drug abuse, hepatitis C, lumbar DDD/bulging discs, migraines, sinus problems, past bilateral arm fractures/casted, past broken left ankle and leg/casted, ruptured spleen with surgery. History of Any Multi-Drug Resistant Organisms: ESBL Date of last positivie culture/infection: 01/17/22 MDRO Source:: ESBL URINE Past Surgical History: Bariatric Surgery, Cardiac Ablation, EPS, Orthopedic Surgery Additional Past Surgical History / Comment(s): Cardiac ablation for SVT, gastric sleeve, spleen repair, I&D L wrist. Past Anesthesia/Blood Transfusion Reactions: No Reported Reaction Additional Past Anesthesia/Blood Transfusion Reaction / Comment(s): Pt has clausterphobia. Past Psychological History: Anxiety, Bipolar, Depression, Panic Disorder Smoking Status: Current every day smoker Past Alcohol Use History: Daily Past Drug Use History: Unable to Obtain - Past Family History Father History Unknown: Yes Family Medical History: COPD, Diabetes Mellitus Mother History Unknown: Yes Family Medical History: Asthma Additional Family Medical History / Comment(s): pt reports mother had cyclic vomiting issues, substance abuse history Sister(s) Family Medical History: Supraventricular Tachycardia (SVT) Additional Family Medical History / Comment(s): Sister had SVT. She is recently from overdose. Medications and Allergies Home Medications Medication Instructions Recorded Confirmed Type No Known Home Medications 07/23/23 07/23/23 History Allergies Allergy/AdvReac Type Severity Reaction Status Date / Time trazodone AdvReac dizziness Verified 07/22/23 21:23 Physical Exam Vitals: Vital Signs Temp Pulse Pulse Resp BP BP Pulse Ox 07/23/23 07:50 97.6 F 113 H 20 131/73 99 07/23/23 04:00 96 18 106/65 97 07/23/23 02:00 12 07/23/23 00:30 89 14 121/79 99 07/22/23 23:30 97 15 130/80 98 07/22/23 23:00 101 H 16 133/94 98 07/22/23 22:23 98 07/22/23 21:19 97.5 F L 130 H 14 134/92 94 L Intake and Output 07/22/23 07/23/23 07/23/23 22:59 06:59 14:59 Intake Total 838 Balance 838 Intake: Oral 838 Other: Voiding Method Toilet Weight 63.503 kg Results CBC & Chem 7: 07/22/23 21:49 07/23/23 08:10 Labs: Abnormal Lab Results - Last 24 Hours (Table) 07/22/23 07/23/23 Range/Units 21:49 08:10 Sodium 136 L (137-145) mmol/L Carbon Dioxide 20 L (22-30) mmol/L Glucose 152 H 143 H (74-99) mg/dL AST 113 H 94 H (14-36) U/L ALT 88 H 70 H (4-34) U/L Total Protein 9.1 H (6.3-8.2) g/dL Serum Alcohol 387 H* mg/dL
[2023-07-23] MEDS: SODIUM CHLORIDE 0.9% 1,000 ML IV SCH (19:03)
--- NOTE | 2023-07-23 19:39 | US ---
EXAMINATION TYPE: US abdomen limited DATE OF EXAM: 07/23/2023 COMPARISON: 05/14/2023 CLINICAL INDICATION: Female, 33 years old with history of hepatitis; Abdomen pain TECHNIQUE: Multiple sonographic images of the right upper quadrant are obtained. FINDINGS: EXAM MEASUREMENTS: Liver Length: 17.4 cm Gallbladder Wall: 0.2 cm CBD: 0.6 cm Right Kidney: 10.9 x 4.6 x 5.8 cm Pancreas: obscured by overlying midline bowel gas Liver: Borderline size. Overall homogeneous appearance without focal lesion. Gallbladder: Numerous small layering gallstones. No hydropic change, wall thickening, or surrounding fluid. Evidence for sonographic Gavin's sign: no CBD: borderline dilated Right Kidney: wnl . No hydronephrosis. IMPRESSION: 1. Numerous small layering gallstones. No ancillary findings of acute cholecystitis. 2. The bile duct is borderline dilated at 6 mm. Correlate with alkaline phosphatase and bilirubin lev els to exclude early biliary obstruction. 3. Borderline liver size at 17.4 cm but with otherwise normal ultrasound appearance to the liver.
[2023-07-24] MEDS: SODIUM CHLORIDE 0.9% 1,000 ML IV SCH ×2 (04:22→14:17)
[2023-07-24] MEDS: PANTOPRAZOLE 40 MG TABLET PO SCH (06:06)
[2023-07-24] MEDS: THIAMINE 100 MG TAB PO SCH (08:47)
[2023-07-24] MEDS: ENOXAPARIN 40 MG/0.4 ML SYRINGE SQ SCH (08:48)
[2023-07-24] MEDS: LORazepam 2 MG/ML INJ IV PRN ×4 (08:48→23:32)
--- NOTE | 2023-07-24 10:46 | P.PN ---
Subjective Progress Note Date: 07/24/23 Hospital Course: 33-year-old female with polysubstance abuse, IV drug user, liver cirrhosis?, Alcohol dependence presenting with acute encephalopathy secondary to acute alcohol intoxication. Hemodynamically stable. Blood work remarkable for elevated AST at 113, the elevated at 88, total bilirubin 0.6, lipase 225, serum alcohol level 387. Being monitored for alcohol withdrawal. Subjective: Patient seen and examined at bedside. No acute events overnight. Claims that she drinks 1-2 fifths of vodka per day. She also uses multiple drugs, IV and inhalation. She mostly uses her arms for IV drug use. She is currently homeless. Abdominal ultrasound shows borderline liver size at 17.4 cm but was otherwise normal ultrasound appearance of the liver, borderline dilation of bile duct at 6 mm, numerous gallstones without any findings of acute cholecystitis. Pertinent positives and negatives as discussed above, a complete review of systems was performed and all other systems are negative. Vitals Signs Reviewed. General: nontoxic, no distress, appears at stated age Derm: warm, dry, multiple track mabry on both arms Head: atraumatic, normocephalic, symmetric Eyes: EOMI, no lid lag, anicteric sclera Mouth: no lip lesion, mucus membranes moist Cardiovascular: S1S2 reg, no murmur Lungs: CTA bilateral, no rhonchi, no rales , no accessory muscle use Abdominal: soft, nontender to palpation, no guarding, no appreciable organomegaly Ext: no gross muscle atrophy, no edema, no contractures Neuro: CN II-XI grossly intact, no focal neuro deficits Psych: Alert, oriented, agitated Data Reviewed Today: Pertinent Labs: No new labs Imaging: Abdominal ultrasound shows borderline liver size at 17.4 cm but was otherwise normal ultrasound appearance of the liver, borderline dilation of bile duct at 6 mm, numerous gallstones without any findings of acute cholecystitis. Assessment and Plan: Active: Acute alcohol intoxication Alcohol dependence with impending withdrawal Transaminitis Polysubstance abuse IV drug use Acute gastritis Homelessness -Continue IV fluid, normal saline at 75 mL an hour -Thiamine oral daily -Ativan IV, and oral as needed, per CIWA -Liver ultrasound does not show any significant pathology to explain transaminitis, likely in the setting of alcohol use, improving -Counseled regarding cessation of IV drug use and other substances -Protonix 40mg PO continue -SW consult -Patient will likely benefit from intensive inpatient alcohol rehab DVT ppx: lovenox Code status: full code Anticipated discharge place: pending clinical course Anticipated discharge time: pending clinical course Objective - Vital Signs Vital signs: Vital Signs Temp 98 F 07/24/23 08:00 Pulse 91 07/24/23 08:00 Resp 16 07/24/23 08:00 BP 128/71 07/24/23 08:00 Pulse Ox 98 07/24/23 08:00 FiO2 Intake & Output 07/23/23 07/24/23 07/24/23 18:59 06:59 18:59 Intake Total 840 480 118 Balance 840 480 118 Weight 63.503 kg Intake: Oral 840 480 118 Other: # Voids 2 1 - Labs CBC & Chem 7: 07/22/23 21:49 07/23/23 08:10
[2023-07-25] MEDS: LORazepam 2 MG/ML INJ IV PRN ×4 (03:42→10:57)
[2023-07-25] MEDS: PANTOPRAZOLE 40 MG TABLET PO SCH (06:40)
[2023-07-25] MEDS: SODIUM CHLORIDE 0.9% 1,000 ML IV SCH (07:02)
[2023-07-25] MEDS: ENOXAPARIN 40 MG/0.4 ML SYRINGE SQ SCH (08:21)
[2023-07-25] MEDS: THIAMINE 100 MG TAB PO SCH (08:21)
--- NOTE | 2023-07-25 10:43 | P.PN ---
Subjective Progress Note Date: 07/25/23 Hospital Course: 33-year-old female with polysubstance abuse, IV drug user, liver cirrhosis?, Alcohol dependence presenting with acute encephalopathy secondary to acute alcohol intoxication. Hemodynamically stable. Blood work remarkable for elevated AST at 113, the elevated at 88, total bilirubin 0.6, lipase 225, serum alcohol level 387. Being monitored for alcohol withdrawal. Still requiring IV Ativan. She also uses multiple drugs, IV and inhalation. She mostly uses her arms for IV drug use. She is currently homeless. Abdominal ultrasound shows borderline liver size at 17.4 cm but was otherwise normal ultrasound appearance of the liver, borderline dilation of bile duct at 6 mm, numerous gallstones without any findings of acute cholecystitis. Also going through opiod withdraw als. Subjective: Patient seen and examined at bedside. No acute events overnight. Feels restle ss. Pertinent positives and negatives as discussed above, a complete review of systems was performed and all other systems are negative. Vitals Signs Reviewed. General: nontoxic, no distress, appears at stated age Derm: warm, dry, multiple track mabry on both arms Head: atraumatic, normocephalic, symmetric Eyes: EOMI, no lid lag, anicteric sclera Mouth: no lip lesion, mucus membranes moist Cardiovascular: S1S2 reg, no murmur Lungs: CTA bilateral, no rhonchi, no rales , no accessory muscle use Abdominal: soft, nontender to palpation, no guarding, no appreciable organomegaly Ext: no gross muscle atrophy, no edema, no contractures Neuro: CN II-XI grossly intact, no focal neuro deficits Psych: Alert, oriented, agitated and restless Data Reviewed Today: Pertinent Labs: No new labs Imaging: No new imaging Assessment and Plan: Active: Alcohol withdrawal Opiate withdrawal Acute alcohol intoxication, resolved Alcohol dependence Transaminitis Polysubstance abuse IV drug use Acute gastritis Homelessness -Started on clonidine 0.1 mg 3 times a day oral -Continue IV fluid, normal saline at 75 mL an hour -Thiamine oral daily -Ativan IV, and oral as needed, per CIWA -Liver ultrasound does not show any significant pathology to explain transaminitis, likely in the setting of alcohol use, improving -Counseled regarding cessation of IV drug use and other substances -Protonix 40mg PO continue -SW consult -Patient will likely benefit from intensive inpatient alcohol rehab DVT ppx: lovenox Code status: full code Anticipated discharge place: pending clinical course Anticipated discharge time: pending clinical course Objective - Vital Signs Vital signs: Vital Signs Temp 98.2 F 07/25/23 03:35 Pulse 104 H 07/25/23 08:00 Resp 16 07/25/23 08:00 BP 124/71 07/25/23 08:00 Pulse Ox 97 07/25/23 09:26 FiO2 Intake & Output 07/24/23 07/25/23 07/25/23 18:59 06:59 18:59 Intake Total 862 Balance 862 Intake: Intake, IV Titration 300 Amount Sodium Chloride 0.9% 1, 300 000 ml @ 75 mls/hr IV . [id number] [facility] Rx#:[id number] Oral 562 Other: Voiding Method Toilet # Voids 2 - Labs CBC & Chem 7: 07/22/23 21:49 07/23/23 08:10
[2023-07-25] MEDS: cloNIDine HCL 0.1 MG TAB PO SCH ×3 (10:57→22:23)
[2023-07-25] MEDS ORDERED: LORazepam 2 MG/ML INJ IM PRN ×2 (13:05)
[2023-07-25] MEDS: LORazepam 1 MG TAB PO PRN ×3 (16:37→22:28)
[2023-07-26] MEDS: SODIUM CHLORIDE 0.9% 1,000 ML IV SCH (01:08)
[2023-07-26] MEDS: LORazepam 1 MG TAB PO PRN ×4 (02:28→10:07)
[2023-07-26] MEDS: PANTOPRAZOLE 40 MG TABLET PO SCH (07:34)
[2023-07-26] MEDS: ENOXAPARIN 40 MG/0.4 ML SYRINGE SQ SCH (08:22)
[2023-07-26] MEDS: THIAMINE 100 MG TAB PO SCH (08:22)
[2023-07-26] MEDS: cloNIDine HCL 0.1 MG TAB PO SCH (08:22)
[2023-07-26 09:55] VITALS: BP 109/71; PULSE 112; RESP 18; TEMP 98.5
--- NOTE | 2023-07-26 13:37 | P.DS ---
Providers Date of admission: 07/22/23 22:50 Expected date of discharge: 07/26/23 Attending physician: Nusrat Roberts MD Primary care physician: Stated None Hospital Course: Discharge Diagnosis: Alcohol withdrawal Opiate withdrawal Acute alcohol intoxication, resolved Alcohol dependence Transaminitis Polysubstance abuse IV drug use Acute gastritis Homelessness Hospital Course: 33-year-old female with polysubstance abuse, IV drug user, liver cirrhosis?, Alcohol dependence presenting with acute encephalopathy secondary to acute alcohol intoxication. Hemodynamically stable. Blood work remarkable for elevated AST at 113, the elevated at 88, total bilirubin 0.6, lipase 225, serum alcohol level 387. She also uses multiple drugs, IV and inhalation. She mostly uses her arms for IV drug use. She is currently homeless. Abdominal ultrasound shows borderline liver size at 17.4 cm but was otherwise normal ultrasound appearance of the liver, borderline dilation of bile duct at 6 mm, numerous gallstones without any findings of acute cholecystitis. Patient was admitted for acute alcohol intoxication, and did go through alcohol withdrawal as well as opiate withdrawal. At the time of discharge patient was orientated, no signs or symptoms of alcohol withdrawal. She was a little more restless, likely secondary to opioid withdrawal. Patient was recommended to stay inpatient while she goes through opiate withdrawal and then consider intensive substance abuse rehab however she declined to stay in the hospital any longer. She said that she will consider going to [place] on her own. She claimed that she would stay with her uncle for now and will try to refrain from alcohol and IV drugs. She understands that she is at high risk for mortality and morbidity if she continues to use alcohol and drugs. Patient seen and examined at bedside. Vital signs reviewed and stable. General: nontoxic, no distress, appears at stated age Derm: warm, dry, multiple track mabry in both arms Head: atraumatic, normocephalic, symmetric Eyes: EOMI, no lid lag, anicteric sclera Mouth: no lip lesion, mucus membranes moist Cardiovascular: S1S2 reg, no murmur Lungs: CTA bilateral, no rhonchi, no rales , no accessory muscle use Abdominal: soft, nontender to palpation, no guarding, no appreciable organomegaly Ext: no gross muscle atrophy, no edema, no contractures Neuro: CN II-XI grossly intact, no focal neuro deficits Psych: Alert, oriented, appropriate affect, restless A total of 33 minutes of time were spent preparing this complex discharge summary. Patient was discharged on 07/26/23 at 11:09. Patient Condition at Discharge: Fair Plan - Discharge Summary Discharge Rx Participant: No New Discharge Prescriptions: New Pantoprazole [Protonix] 40 mg PO AC-BRKFST #30 tab Thiamine [Vitamin B-1] 100 mg PO DAILY #60 tab Discharge Medication List Pantoprazole [Protonix] 40 mg PO AC-BRKFST #30 tab 07/26/23 [Rx] Thiamine [Vitamin B-1] 100 mg PO DAILY #60 tab 07/26/23 [Rx] Follow up Appointment(s)/Referral(s): None,Stated [Primary Care Provider] - 1-2 days Patient Instructions/Handouts: Alcohol Intoxication (DC), Abuse of Alcohol (DC), Polysubstance Abuse (ED) Activity/Diet/Wound Care/Special Instructions: Please see a PCP and rehab. Discharge/Stand Alone Forms: AA [facility], Outpatient Counseling, In Substance Abuse Facilities Discharge Disposition: HOME SELF-CARE
== END 2023-07-26 11:21 | disposition home or self-care (01) | DRG 773 ==
LOC: EC 21:18 → 3SCARD 22:50 → EEVIPCON 22:50 → 3SCARD 23:48 → 2SICU 07-24 06:55 → 3SCARD 07-24 07:53
PROVIDERS: ADMIT Internal Medicine; ATTEND Internal Medicine
PROC: 05HY33Z Insertion of Infusion Device into Upper Vein, Percutaneous Approach (ICD-10-PCS; principal; 2023-07-23 20:30)
PROC: 05HC33Z Insertion of Infusion Device into Left Basilic Vein, Percutaneous Approach (ICD-10-PCS; 2023-07-24 12:20)
DX: F10.239 Alcohol dependence with withdrawal, unspecified (principal); F10.221 Alcohol dependence with intoxication delirium; F17.200 Nicotine dependence, unspecified, uncomplicated; F31.9 Bipolar disorder, unspecified; F11.229 Opioid dependence with intoxication, unspecified; F41.0 Panic disorder [episodic paroxysmal anxiety]; G40.909 Epilepsy, unspecified, not intractable, without status epilepticus; K29.00 Acute gastritis without bleeding; K74.60 Unspecified cirrhosis of liver; K75.9 Inflammatory liver disease, unspecified; K80.10 Calculus of gallbladder with chronic cholecystitis without obstruction; Y90.8 Blood alcohol level of 240 mg/100 ml or more; F19.10 Other psychoactive substance abuse, uncomplicated; R74.01 Elevation of levels of liver transaminase levels; F17.210 Nicotine dependence, cigarettes, uncomplicated; Z59.00 Homelessness unspecified; Z79.899 Other long term (current) drug therapy; Z82.5 Family history of asthma and other chronic lower respiratory diseases; Z83.3 Family history of diabetes mellitus; Z88.8 Allergy status to other drugs, medicaments and biological substances; Z98.84 Bariatric surgery status; Z71.51 Drug abuse counseling and surveillance of drug abuser; Z71.41 Alcohol abuse counseling and surveillance of alcoholic
CPT/HCPCS: 36410; 36415; 76705; 76937; 80053; 80320; 81025; 83690; 83735; 85025; 93005; 94760; 96360; 96361; 99285

== ENCOUNTER 2023-09-27 02:59 | Emergency (ER) | payer OTHER ==
[2023-09-27 03:24] VITALS: TEMP 97.9
[2023-09-27] MEDS ORDERED: SODIUM CHLORIDE 0.9% 1,000 ML IV STA (03:29)
--- NOTE | 2023-09-27 03:31 | ED ---
Recheck HPI - General Source: patient, RN notes reviewed, old records reviewed Mode of arrival: wheelchair Limitations: no limitations - History of Present Illness MD Complaint: other (Patient concern for possibility of bacteremia or renal failure) -: days(s) Returns Today for: persistent/worsening pain related to initial visit Symptoms Since Prior Visit: no new symptoms Context: called for abnormal lab result Associated Symptoms: none Treatments Prior to Arrival: other (0) <Dawit Moran - Last Filed: 09/27/23 05:53> <Dawit Kingston - Last Filed: 09/27/23 13:05> - General Chief Complaint: Back Pain/Injury Stated Complaint: Infections, Kidney infection Time Seen by Provider: 09/27/23 03:28 - History of Present Illness Initial Comments: This is a 33-year-old female who states that she has a significant medical history with multiple medical issues medical problems secondary to drug abuse. Patient is concerned for kidney function currently. With multiple other concerns, patient also currently homeless with severe depression and does need social help (Dawit Moran) - Related Data Home Medications Medication Instructions Recorded Confirmed No Known Home Medications 09/27/23 09/27/23 Allergies Allergy/AdvReac Type Severity Reaction Status Date / Time trazodone AdvReac dizziness Verified 09/27/23 07:10 Review of Systems ROS Other: All systems not noted in ROS Statement are negative. <Dawit Moran - Last Filed: 09/27/23 05:53> ROS Other: All systems not noted in ROS Statement are negative. <Dawit Kingston - Last Filed: 09/27/23 13:05> ROS Statement: Those systems with pertinent positive or pertinent negative responses have been documented in the HPI. Past Medical History Past Medical History: Liver Disease, Seizure Disorder, Supraventricular Tachycardia (SVT) Additional Past Medical History / Comment(s): SVT with cardiac ablation, lumbar DDD, bulging lumbar disc, ETOH abuse, alcohol withdrawals, pt states she has a seizure disorder and has alcohol withdrawal seizures with last seizure in 2020, drug abuse/pt states IV drug abuse, hepatitis C, lumbar DDD/bulging discs, migraines, sinus problems, past bilateral arm fractures/casted, past broken left ankle and leg/casted, ruptured spleen with surgery. History of Any Multi-Drug Resistant Organisms: ESBL Date of last positivie culture/infection: 01/17/22 MDRO Source:: ESBL URINE Past Surgical History: Bariatric Surgery, Cardiac Ablation, EPS, Orthopedic Surgery Additional Past Surgical History / Comment(s): Cardiac ablation for SVT, gastric sleeve, spleen repair, I&D L wrist. Past Anesthesia/Blood Transfusion Reactions: No Reported Reaction Additional Past Anesthesia/Blood Transfusion Reaction / Comment(s): Pt has clausterphobia. Past Psychological History: Anxiety, Bipolar, Depression, Panic Disorder Smoking Status: Current every day smoker Past Alcohol Use History: Daily Past Drug Use History: Heroin, IV Drug Use, Marijuana, Methamphetamine, Opiates, Prescription Drug Abuse - Past Family History Father History Unknown: Yes Family Medical History: COPD, Diabetes Mellitus Mother History Unknown: Yes Family Medical History: Asthma Additional Family Medical History / Comment(s): pt reports mother had cyclic vomiting issues, substance abuse history Sister(s) Family Medical History: Supraventricular Tachycardia (SVT) Additional Family Medical History / Comment(s): Sister had SVT. She is recently from overdose. <KarisjenniferDawit B - Last Filed: 09/27/23 05:53> General Exam Limitations: no limitations General appearance: alert, in no apparent distress Head exam: Present: atraumatic, normocephalic, normal inspection Eye exam: Present: normal appearance, PERRL, EOMI. Absent: scleral icterus, conjunctival injection, periorbital swelling ENT exam: Present: normal exam, mucous membranes moist Neck exam: Present: normal inspection. Absent: tenderness, meningismus, lymphadenopathy Respiratory exam: Present: normal lung sounds bilaterally. Absent: respiratory distress, wheezes, rales, rhonchi, stridor Cardiovascular Exam: Present: regular rate, normal rhythm, normal heart sounds. Absent: systolic murmur, diastolic murmur, rubs, gallop, clicks GI/Abdominal exam: Present: soft, normal bowel sounds. Absent: distended, tenderness, guarding, rebound, rigid Extremities exam: Present: normal inspection, full ROM, normal capillary refill. Absent: tenderness, pedal edema, joint swelling, calf tenderness Back exam: Present: normal inspection Neurological exam: Present: alert, oriented X3, CN II-XII intact Psychiatric exam: Present: normal affect, normal mood Skin exam: Present: warm, dry, intact, normal color. Absent: rash <Dawit Moran - Last Filed: 09/27/23 05:53> Course <Dawit Moran - Last Filed: 09/27/23 05:53> Vital Signs 09/27/23 03:04 Temperature 97.9 F Pulse Rate 86 Respiratory 18 Rate Blood Pressure 141/90 O2 Sat by Pulse 95 Oximetry - Reevaluation(s) Reevaluation #1: 09/27/23 05:55 Medical record is reviewed (Dawit Moran) Reevaluation #2: 09/27/23 05:56 Patient symptoms unchanged (Dawit Moran) Reevaluation #3: 09/27/23 05:56 Patient is medically clear for psychiatric evaluation (Dawit Moran) Medical Decision Making - Lab Data Result diagrams: 09/27/23 03:57 09/27/23 03:57 - EKG Data -: EKG Interpreted by Me (EKG is sinus 61 DE 154 QRS 90 QTC 411) <Dawit Moran - Last Filed: 09/27/23 05:53> - Lab Data Result diagrams: 09/27/23 03:57 09/27/23 03:57 <Dawit Kingston - Last Filed: 09/27/23 13:05> - Medical Decision Making Was patient admitted / discharged? Hospital course, mention meds given and route, prescriptions, significant lab abnormalities, going to OR and other pertinent info. @ -Patient was signed out to me at 7 AM this morning. EPS evaluated the patient and was given a safety plan and appropriate follow-up patient was in agreement with this. Patient will be discharged home Undiagnosed new problem with uncertain prognosis? @ -No Drug Therapy requiring intensive monitoring for toxicity (Heparin, Nitro, Insulin, Cardizem)? @ -No Were any procedures done? @ -No Diagnosis/symptom? @ -Depression Acute, or Chronic, or Acute on Chronic? @ -Acute Uncomplicated (without systemic symptoms) or Complicated (systemic symptoms)? @ -Uncomplicated Side effects of treatment? @ -No Exacerbation, Progression, or Severe Exacerbation? @ -No Poses a threat to life or bodily function? How? (Chest pain, USA, GA, pneumonia, PE, COPD, DKA, ARF, appy, cholecystitis, CVA, Diverticulitis, Homicidal, Suicidal, threat to staff... and all critical care pts) @ -No (Dawit Kingston) - Lab Data Lab Results 09/27/23 09/27/23 09/27/23 Range/Units 03:57 03:57 03:57 WBC 3.7 L (3.8-10.6) k/uL RBC 3.75 L (3.80-5.40) m/uL Hgb 11.6 D (11.4-16.0) gm/dL Hct 34.7 (34.0-46.0) % MCV 92.6 (80.0-100.0) fL MCH 31.0 (25.0-35.0) pg MCHC 33.4 (31.0-37.0) g/dL RDW 13.0 (11.5-15.5) % Plt Count 178 (150-450) k/uL MPV 9.2 Neutrophils % 41 % Lymphocytes % 49 % Monocytes % 4 % Eosinophils % 1 % Basophils % 0 % Neutrophils # 1.5 (1.3-7.7) k/uL Lymphocytes # 1.8 (1.0-4.8) k/uL Monocytes # 0.2 (0-1.0) k/uL Eosinophils # 0.1 (0-0.7) k/uL Basophils # 0.0 (0-0.2) k/uL PT 10.6 (10.0-12.5) sec INR 1.0 (<1.2) APTT 26.8 (22.0-30.0) sec Sodium 138 (137-145) mmol/L Potassium 4.3 (3.5-5.1) mmol/L Chloride 104 (98-107) mmol/L Carbon Dioxide 25 (22-30) mmol/L Anion Gap 9 mmol/L BUN 16 (7-17) mg/dL Creatinine 0.63 (0.52-1.04) mg/dL Est GFR (CKD-EPI)AfAm >90 (>60 ml/min/1.73 sqM) Est GFR (CKD-EPI)NonAf >90 (>60 ml/min/1.73 sqM) Glucose 84 (74-99) mg/dL Plasma Lactic Acid Wilver (0.7-2.0) mmol/L Calcium 8.8 (8.4-10.2) mg/dL Phosphorus 4.5 (2.5-4.5) mg/dL Magnesium 1.9 (1.6-2.3) mg/dL Total Bilirubin 0.5 (0.2-1.3) mg/dL AST 44 H (14-36) U/L ALT 32 (4-34) U/L Alkaline Phosphatase 72 (38-126) U/L Ammonia (<30) umol/L Troponin I (0.000-0.034) ng/mL Total Protein 6.7 (6.3-8.2) g/dL Albumin 3.7 (3.5-5.0) g/dL Salicylates <1.0 mg/dL Acetaminophen <10.0 ug/mL Serum Alcohol <10 mg/dL 09/27/23 09/27/23 Range/Units 03:57 03:57 WBC (3.8-10.6) k/uL RBC (3.80-5.40) m/uL Hgb (11.4-16.0) gm/dL Hct (34.0-46.0) % MCV (80.0-100.0) fL MCH (25.0-35.0) pg MCHC (31.0-37.0) g/dL RDW (11.5-15.5) % Plt Count (150-450) k/uL MPV Neutrophils % % Lymphocytes % % Monocytes % % Eosinophils % % Basophils % % Neutrophils # (1.3-7.7) k/uL Lymphocytes # (1.0-4.8) k/uL Monocytes # (0-1.0) k/uL Eosinophils # (0-0.7) k/uL Basophils # (0-0.2) k/uL PT (10.0-12.5) sec INR (<1.2) APTT (22.0-30.0) sec Sodium (137-145) mmol/L Potassium (3.5-5.1) mmol/L Chloride (98-107) mmol/L Carbon Dioxide (22-30) mmol/L Anion Gap mmol/L BUN (7-17) mg/dL Creatinine (0.52-1.04) mg/dL Est GFR (CKD-EPI)AfAm (>60 ml/min/1.73 sqM) Est GFR (CKD-EPI)NonAf (>60 ml/min/1.73 sqM) Glucose (74-99) mg/dL Plasma Lactic Acid Wilver 0.7 (0.7-2.0) mmol/L Calcium (8.4-10.2) mg/dL Phosphorus (2.5-4.5) mg/dL Magnesium (1.6-2.3) mg/dL Total Bilirubin (0.2-1.3) mg/dL AST (14-36) U/L ALT (4-34) U/L Alkaline Phosphatase (38-126) U/L Ammonia 24 (<30) umol/L Troponin I <0.012 (0.000-0.034) ng/mL Total Protein (6.3-8.2) g/dL Albumin (3.5-5.0) g/dL Salicylates mg/dL Acetaminophen ug/mL Serum Alcohol mg/dL Disposition <Dawit Moran - Last Filed: 09/27/23 05:53> Is patient prescribed a controlled substance at d/c from ED?: No Time of Disposition: 13:04 <Dawit Kingston - Last Filed: 09/27/23 13:05> Clinical Impression: Depression Disposition: HOME SELF-CARE Condition: Good Instructions (If sedation given, give patient instructions): Depression (ED) Referrals: None,Stated [Primary Care Provider] - 1-2 days
[2023-09-27 04:54] LABS: Basophils % (A) 0 %; Eosinophils # (A) 0.1 k/uL (0-0.7); Eosinophils % (A) 1 %; HCT 34.7 % (34.0-46.0); Lymphocytes # (A) 1.8 k/uL (1.0-4.8); Lymphocytes % (A) 49 %; MCHC 33.4 g/dL (31.0-37.0); MCV 92.6 fL (80.0-100.0); Mean Platelet Volume 9.2; Monocytes # (A) 0.2 k/uL (0-1.0); Monocytes % (A) 4 %; Neutrophils # (A) 1.5 k/uL (1.3-7.7); Neutrophils % (A) 41 %; Platelet Count 178 k/uL (150-450); RBC 3.75 m/uL (3.80-5.40); WBC 3.7 k/uL (3.8-10.6)
[2023-09-27 04:58] LABS: Lactic Acid, Venous 0.7 mmol/L (0.7-2.0); Partial Thromboplastin Time 26.8 sec (22.0-30.0); Prothrombin Time 10.6 sec (10.0-12.5)
[2023-09-27 04:59] LABS: HGB 11.6 gm/dL (11.4-16.0)
[2023-09-27 05:00] LABS: ALT 32 U/L (4-34); AST 44 U/L (14-36); Acetaminophen <10.0 ug/mL; African American GFR (CKD) >90 (>60 ml/min/1.73 sqM); Albumin 3.7 g/dL (3.5-5.0); Alcohol <10 mg/dL; Alkaline Phosphatase 72 U/L (38-126); Anion Gap 9 mmol/L; Blood Urea Nitrogen 16 mg/dL (7-17); Calcium 8.8 mg/dL (8.4-10.2); Carbon Dioxide 25 mmol/L (22-30); Chloride 104 mmol/L (98-107); Glucose 84 mg/dL (74-99); Magnesium 1.9 mg/dL (1.6-2.3); Non-African American GFR(CKD) >90 (>60 ml/min/1.73 sqM); Phosphorus 4.5 mg/dL (2.5-4.5); Potassium 4.3 mmol/L (3.5-5.1); Salicylate <1.0 mg/dL; Sodium 138 mmol/L (137-145); Total Bilirubin 0.5 mg/dL (0.2-1.3); Total Protein 6.7 g/dL (6.3-8.2)
[2023-09-27 13:41] VITALS: BP 132/87; PULSE 76; RESP 17
== END 2023-09-27 13:24 | disposition home or self-care (01) ==
LOC: EC 02:59
DX: F32.A Depression, unspecified (principal); F17.200 Nicotine dependence, unspecified, uncomplicated; F15.90 Other stimulant use, unspecified, uncomplicated; F12.90 Cannabis use, unspecified, uncomplicated
CPT/HCPCS: 36415; 93005; 80053; 82140; 83605; 83735; 84100; 84484; 85025; 85610; 85730; 80143; 80179; 99284; 96360; 96361; G0480; 80320

== ENCOUNTER 2023-11-27 14:04 | Inpatient (IN) | payer OTHER ==
--- NOTE | 2023-11-27 14:24 | ED ---
General Adult HPI - General Source: EMS Mode of arrival: EMS Limitations: no limitations <Leonard Fajardo - Last Filed: 12/04/23 14:21> - History of Present Illness -: unknown Associated Symptoms: confusion Treatments Prior to Arrival: none <Dawit Moran - Last Filed: 12/07/23 14:48> - General Chief complaint: Shortness of Breath Stated complaint: Anxiety, ARMIDA Time Seen by Provider: 11/27/23 14:12 - History of Present Illness Initial comments: Dictation was produced using [employer] dictation software. please excuse any grammatical, word or spelling errors. Chief Complaint: 33-year-old female past medical history illicit drug abuse, alcohol dependence presents to the ER for tremors, burning sensation to her body along with feeling weak and altered History of Present Illness: 33-year-old female she has significant comorbidities. She is noncompliant with her medical care. She allegedly has a history of stage IV C daily, liver disease and seizure disorder. She has alcohol dependence. She drinks half a gallon of liquor daily. For the last 24- 48 hours patient has been having episodes of shaking chills. She feels generally weak. Denies any other complaints. Significant other at the bedside is concerned about her well-being and was one who called EMS. Patient has not been compliant with her medical care for the last year. She is complaining of fever shows night sweats. Otherwise denies any pain complaints. The ROS documented in this emergency department record has been reviewed and confirmed by me. Those systems with pertinent positive or negative responses have been documented in the HPI. All other systems are other negative and/or noncontributory. (Leonard Fajardo) This is a 33-year-old female to the emergency department for evaluation of multiple complaints. Patient is significantly ill unable to give accurate history here in the emergency department but she does have a significant amount of complaints here in the emergency department including numbness and tingling of feet and legs, sweating (Dawit Moran) - Related Data Home Medications Medication Instructions Recorded Confirmed No Known Home Medications 09/27/23 11/27/23 Allergies Allergy/AdvReac Type Severity Reaction Status Date / Time trazodone AdvReac dizziness Verified 11/27/23 16:32 Review of Systems ROS Other: All systems not noted in ROS Statement are negative. <Loenard Fajardo - Last Filed: 12/04/23 14:21> ROS Other: All systems not noted in ROS Statement are negative. <LuisaDawit Valentin - Last Filed: 12/07/23 14:48> ROS Statement: Those systems with pertinent positive or pertinent negative responses have been documented in the HPI. Past Medical History Past Medical History: Liver Disease, Seizure Disorder, Supraventricular Tachycardia (SVT) Additional Past Medical History / Comment(s): SVT with cardiac ablation, lumbar DDD, bulging lumbar disc, ETOH abuse, alcohol withdrawals, pt states she has a seizure disorder and has alcohol withdrawal seizures with last seizure in 2020, drug abuse/pt states IV drug abuse, hepatitis C, lumbar DDD/bulging discs, migraines, sinus problems, past bilateral arm fractures/casted, past broken left ankle and leg/casted, ruptured spleen with surgery. History of Any Multi-Drug Resistant Organisms: ESBL Date of last positivie culture/infection: 01/17/22 MDRO Source:: ESBL URINE Past Surgical History: Bariatric Surgery, Cardiac Ablation, EPS, Orthopedic Surgery Additional Past Surgical History / Comment(s): Cardiac ablation for SVT, gastric sleeve, spleen repair, I&D L wrist. Past Anesthesia/Blood Transfusion Reactions: No Reported Reaction Additional Past Anesthesia/Blood Transfusion Reaction / Comment(s): Pt has clausterphobia. Past Psychological History: Anxiety, Bipolar, Depression, Panic Disorder Smoking Status: Current every day smoker Past Alcohol Use History: Daily Past Drug Use History: Heroin, IV Drug Use, Marijuana, Methamphetamine, Opiates, Prescription Drug Abuse - Past Family History Father History Unknown: Yes Family Medical History: COPD, Diabetes Mellitus Mother History Unknown: Yes Family Medical History: Asthma Additional Family Medical History / Comment(s): pt reports mother had cyclic vomiting issues, substance abuse history Sister(s) Family Medical History: Supraventricular Tachycardia (SVT) Additional Family Medical History / Comment(s): Sister had SVT. She is recently from overdose. <Leonard Fajardo - Last Filed: 12/04/23 14:21> General Exam Limitations: no limitations <Leonard Fajardo - Last Filed: 12/04/23 14:21> Limitations: altered mental status General appearance: appears intoxicated, anxious, in distress Head exam: Present: atraumatic, normocephalic, normal inspection Eye exam: Present: normal appearance, PERRL, EOMI. Absent: scleral icterus, conjunctival injection, periorbital swelling ENT exam: Present: normal exam, mucous membranes moist Neck exam: Present: normal inspection. Absent: tenderness, meningismus, lymphadenopathy Respiratory exam: Present: normal lung sounds bilaterally. Absent: respiratory distress, wheezes, rales, rhonchi, stridor Cardiovascular Exam: Present: regular rate, normal rhythm, normal heart sounds. Absent: systolic murmur, diastolic murmur, rubs, gallop, clicks GI/Abdominal exam: Present: soft, normal bowel sounds. Absent: distended, tenderness, guarding, rebound, rigid Extremities exam: Present: normal inspection, full ROM, normal capillary refill. Absent: tenderness, pedal edema, joint swelling, calf tenderness Back exam: Present: normal inspection Neurological exam: Present: alert, oriented X3, CN II-XII intact Psychiatric exam: Present: normal affect, normal mood Skin exam: Present: warm, dry, intact, normal color. Absent: rash <Dawit Moran - Last Filed: 12/07/23 14:48> - General Exam Comments Initial Comments: PHYSICAL EXAM: General Impression: Alert and oriented x3, tremulous HEENT: Normocephalic atraumatic, extra-ocular movements intact, pupils equal and reactive to light bilaterally, mucous membranes moist. Cardiovascular: Heart regular rate and rhythm Chest: Able to complete full sentences, no retractions, no tachypnea Abdomen: abdomen soft, non-tender, non-distended, no organomegaly Musculoskeletal: Pulses present and equal in all extremities, no peripheral edema Motor: no focal deficits noted Neurological: CN II-XII grossly intact, no focal motor or sensory deficits noted Skin: Intact with no visualized rashes Psych: Normal affect and mood (Leonard Fajardo) Course <Dawit Moran B - Last Filed: 12/07/23 14:48> Vital Signs 11/27/23 11/27/23 11/27/23 14:07 14:11 19:40 Temperature 98.4 F Pulse Rate 93 77 Respiratory 18 18 16 Rate Blood Pressure 138/85 122/66 O2 Sat by Pulse 97 96 Oximetry 11/28/23 11/28/23 11/28/23 00:00 02:00 06:00 Temperature Pulse Rate 73 88 82 Respiratory 15 16 18 Rate Blood Pressure 120/66 127/87 132/81 O2 Sat by Pulse 98 99 96 Oximetry 11/28/23 11/28/23 11/28/23 10:00 14:05 18:22 Temperature 98.2 F 98 F Pulse Rate 71 68 78 Respiratory 16 16 16 Rate Blood Pressure 131/84 127/77 121/70 O2 Sat by Pulse 96 96 97 Oximetry 11/28/23 11/28/23 19:26 20:49 Temperature 98.5 F 98.5 F Pulse Rate 95 96 Respiratory 18 18 Rate Blood Pressure 120/83 146/92 O2 Sat by Pulse 100 100 Oximetry - Reevaluation(s) Reevaluation #1: 11/27/23 20:56 Records reviewed (Dawit Moran) Reevaluation #2: 11/27/23 20:56 Patient symptoms unchanged (Dawit Moran) Reevaluation #3: 11/27/23 20:56 Patient informed results and questions answered (Dawit Moran) Reevaluation #4: 11/27/23 20:10 Was pt. sent in by a medical professional or institution ([facility] [place], CAN CLOSING MACHINE OPERATOR, urgent care, hospital, or fdc...) When possible be specific @ -no Did you speak to anyone other than the patient for history (EMS, parent, family, police, friend...)? What history was obtained from this source @ -no Did you review nursing and triage notes (agree or disagree)? Why? @ -agree Are old charts reviewed (outside hosp., previous admission, EMS record, old EKG, old radiological studies, urgent care reports/EKG's, fdc records)? Repo rt findings @ -yes Differential Diagnosis (chest pain, altered mental status, abdominal pain women, abdominal pain men, vaginal bleeding, weakness, fever, dyspnea, syncope, headache, dizziness, GI bleed, back pain, seizure, CVA, palpatations, mental health, musculoskeletal)? @ -prior EKG interpreted by me (3pts min.). @ -yes X-rays interpreted by me (1pt min.). @ -yes negative for acute disease CT interpreted by me (1pt min.). @ -no U/S interpreted by me (1pt. min.). @ -no What testing was considered but not performed or refused? (CT, X-rays, U/S, labs)? Why? @ -none What meds were considered but not given or refused? Why? @ -none Did you discuss the management of the patient with other professionals (professionals i.e. DrYudith, PA, CAN CLOSING MACHINE OPERATOR, lab, RT, psych nurse, social services assistant, char filter tank tender head, te acher, mounted police officer, adult protective caseworker)? Give summary @ -no Was smoking cessation discussed for >3mins.? @ -no Was critical care preformed (if so, how long)? @ -no Were there social determinants of health that impacted care today? How? (Homelessness, low income, unemployed, alcoholism, drug addiction, transportation, low edu. Level, literacy, decrease access to med. care, correction, rehab)? @ -none Was there de-escalation of care discussed even if they declined (Discuss DNR or withdrawal of care, Hospice)? DNR status @ -no What co-morbidities impacted this encounter? (DM, HTN, Smoking, COPD, CAD, Cancer, CVA, ARF, Chemo, Hep., AIDS, mental health diagnosis, sleep apnea, morbid obesity)? @ -none Was patient admitted / discharged? Hospital course, mention meds given and route, prescriptions, significant lab abnormalities, going to OR and other pertinent info. @ - 33 female will be admitted for significant alcohol intoxication, severe alcohol intoxication is found here in the emergency department, patient is in severe distress with multiple complaints of weakness dizziness lightheadedness and multiple other complaints arm pain headache back pain. Hand pain patient be admitted for further evaluation monitoring and severe alcohol intoxication Admitted Undiagnosed new problem with uncertain prognosis? @ -no Drug Therapy requiring intensive monitoring for toxicity (Heparin, Nitro, In sulin, Cardizem)? @ -no Were any procedures done? @ -no Diagnosis/symptom? @ -Alcohol intoxication Acute, or Chronic, or Acute on Chronic? @ -Acute Uncomplicated (without systemic symptoms) or Complicated (systemic symptoms)? @ -Complicated Side effects of treatment? @ -no Exacerbation, Progression, or Severe Exacerbation? @ -exacerbation Poses a threat to life or bodily function? How? (Chest pain, USA, AL, pneumonia, PE, COPD, DKA, ARF, appy, cholecystitis, CVA, Diverticulitis, Homicidal, Suicidal, threat to staff... and all critical care pts) @ -yes with severe alcohol intoxication (Dawit Moran) - Consultations Consultation #1: spoke w [facility] who agrees to the patient (Dawit Moran) EKG Findings - EKG Comments: EKG Findings:: My EKG interpretation: Ventricular rate 85, sinus rhythm,. 143, QRS 85, QTC 49. No NE prolongation, no QTC prolongation, no ST or T-wave changes noted. Overall, this EKG is unremarkable <Leonard Fajardo - Last Filed: 12/04/23 14:21> Medical Decision Making - Lab Data Result diagrams: 12/02/23 07:51 12/02/23 03:38 <Leonard Fajardo - Last Filed: 12/04/23 14:21> - Lab Data Result diagrams: 12/02/23 07:51 12/02/23 03:38 - EKG Data -: EKG Interpreted by Me (EKG is sinus 85 NE 143 QRS 85 QTc 409) - Radiology Data Radiology results: report reviewed (Chest x-rays negative for acute disease), image reviewed <Dawit Moran - Last Filed: 12/07/23 14:48> - Medical Decision Making Was pt. sent in by a medical professional or institution (, PA, CAN CLOSING MACHINE OPERATOR, urgent care, hospital, or fdc...) When possible be specific @ -[No] Did you speak to anyone other than the patient for history (EMS, parent, family, police, friend...)? What history was obtained from this source @ -[No] Did you review nursing and triage notes (agree or disagree)? Why? @ -[I reviewed and agree with nursing and triage notes] Were old charts reviewed (outside hosp., previous admission, EMS record, old EKG, old radiological studies, urgent care reports/EKG's, fdc records)? Report findings @ -[No old charts were reviewed] Differential Diagnosis (chest pain, altered mental status, abdominal pain women, abdominal pain men, vaginal bleeding, musculoskeletal, weakness, fever, dyspnea, syncope, headache, dizziness, GI bleed, back pain, seizure, CVA, palpatations, mental health)? @ -Differential Fever: Pneumonia, viral URI, endocarditis, myocarditis, pericarditis, otitis, sinusitis, peritonsillar Abscess, retropharyngeal Abscess, epiglottitis, peritonitis, appendicitis, Vidhya cystitis, diverticulitis, hepatitis, colitis, UTI, PID, TOA, pyelonephritis, prostatitis, epididymitis, meningitis, encephalitis, pulmonary embolism, CVA, thyroid storm, pancreatitis, adrenal crisis, cavernous sinus thrombosis, this is not meant to be an all-inclusive list. EKG interpreted by me (3pts min.). @ -[None done] X-rays interpreted by me (1pt min.). @ -[None done] CT interpreted by me (1pt min.). @ -[None done] U/S interpreted by me (1pt. min.). @ -[None done] What testing was considered but not performed or refused? (CT, X-rays, U/S, labs)? Why? @ -[None] What meds were considered but not given or refused? Why? @ -[None] Did you discuss the management of the patient with other professionals (professionals i.e. , PA, CAN CLOSING MACHINE OPERATOR, lab, RT, psych nurse, social services assistant, char filter tank tender head, teacher, mounted police officer, adult protective caseworker)? Give summary @ -[No] Was smoking cessation discussed for >3mins.? @ -[No] Was critical care preformed (if so, how long)? @ -[No] Were there social determinants of health that impacted care today? How? (Homelessness, low income, unemployed, alcoholism, drug addiction, transportation, low edu. Level, literacy, decrease access to med. care, correction, rehab)? @ -[No] Was there de-escalation of care discussed even if they declined (Discuss DNR or withdrawal of care, Hospice)? DNR status @ -[No] What co-morbidities impacted this encounter? (DM, HTN, Smoking, COPD, CAD, Cancer, CVA, ARF, Chemo, Hep., AIDS, mental health diagnosis, sleep apnea, morbid obesity)? @ -[None] Was patient admitted / discharged? Hospital course, mention meds given and route, prescriptions, significant lab abnormalities, going to OR and other pertinent info. @ -33 Year-old female with significant comorbidities including CKD, illicit drug abuse, liver disease and seizure. Presents to the ER with constitutional s ymptoms. Patient's signout to Dr. Moran at 3:00 PM (Leonard Fajardo) 33 female will be admitted for significant alcohol intoxication, severe alcohol intoxication is found here in the emergency department, patient is in severe distress with multiple complaints of weakness dizziness lightheadedness and multiple other complaints arm pain headache back pain. Hand pain patient be admitted for further evaluation monitoring and severe alcohol intoxication (Dawit Moran) - Lab Data Lab Results 11/27/23 11/27/23 11/27/23 Range/Units 15:01 15:01 15:01 WBC 4.6 (3.8-10.6) k/uL RBC 4.32 (3.80-5.40) m/uL Hgb 13.3 (11.4-16.0) gm/dL Hct 40.8 (34.0-46.0) % MCV 94.4 (80.0-100.0) fL MCH 30.8 (25.0-35.0) pg MCHC 32.6 (31.0-37.0) g/dL RDW 13.0 (11.5-15.5) % Plt Count 178 (150-450) k/uL MPV 8.0 Neutrophils % 70 % Lymphocytes % 26 % Monocytes % 2 % Eosinophils % 1 % Basophils % 1 % Neutrophils # 3.2 (1.3-7.7) k/uL Lymphocytes # 1.2 (1.0-4.8) k/uL Monocytes # 0.1 (0-1.0) k/uL Eosinophils # 0.0 (0-0.7) k/uL Basophils # 0.0 (0-0.2) k/uL PT 10.6 (10.0-12.5) sec INR 1.0 (<1.2) APTT 27.0 (22.0-30.0) sec Sodium (137-145) mmol/L Potassium (3.5-5.1) mmol/L Chloride (98-107) mmol/L Carbon Dioxide (22-30) mmol/L Anion Gap mmol/L BUN (7-17) mg/dL Creatinine (0.52-1.04) mg/dL Est GFR (CKD-EPI)AfAm (>60 ml/min/1.73 sqM) Est GFR (CKD-EPI)NonAf (>60 ml/min/1.73 sqM) Glucose (74-99) mg/dL Plasma Lactic Acid Wilver (0.7-2.0) mmol/L Calcium (8.4-10.2) mg/dL Magnesium (1.6-2.3) mg/dL Total Bilirubin (0.2-1.3) mg/dL AST (14-36) U/L ALT (4-34) U/L Alkaline Phosphatase (38-126) U/L Total Protein (6.3-8.2) g/dL Albumin (3.5-5.0) g/dL Urine Color Colorless Urine Appearance Clear (Clear) Urine pH 7.5 (5.0-8.0) Ur Specific [place] 1.008 (1.001-1.035) Urine Protein Negative (Negative) Urine Glucose (UA) Negative (Negative) Urine Ketones Negative (Negative) Urine Blood Negative (Negative) Urine Nitrite Negative (Negative) Urine Bilirubin Negative (Negative) Urine Urobilinogen <2.0 (<2.0) mg/dL Ur Leukocyte Esterase Trace H (Negative) Urine RBC 1 (0-5) /hpf Urine WBC 3 (0-5) /hpf Ur Squamous Epith Cells 1 (0-4) /hpf Urine Bacteria Occasional H (None) /hpf Serum Alcohol mg/dL Influenza Type A (PCR) (Not Detectd) Influenza Type B (PCR) (Not Detectd) RSV (PCR) (Not Detectd) SARS-CoV-2 (PCR) (Not Detectd) 11/27/23 11/27/23 11/27/23 Range/Units 15:01 15:01 15:01 WBC (3.8-10.6) k/uL RBC (3.80-5.40) m/uL Hgb (11.4-16.0) gm/dL Hct (34.0-46.0) % MCV (80.0-100.0) fL MCH (25.0-35.0) pg MCHC (31.0-37.0) g/dL RDW (11.5-15.5) % Plt Count (150-450) k/uL MPV Neutrophils % % Lymphocytes % % Monocytes % % Eosinophils % % Basophils % % Neutrophils # (1.3-7.7) k/uL Lymphocytes # (1.0-4.8) k/uL Monocytes # (0-1.0) k/uL Eosinophils # (0-0.7) k/uL Basophils # (0-0.2) k/uL PT (10.0-12.5) sec INR (<1.2) APTT (22.0-30.0) sec Sodium 146 H (137-145) mmol/L Potassium 4.1 (3.5-5.1) mmol/L Chloride 107 (98-107) mmol/L Carbon Dioxide 24 (22-30) mmol/L Anion Gap 15 mmol/L BUN 10 (7-17) mg/dL Creatinine 0.51 L (0.52-1.04) mg/dL Est GFR (CKD-EPI)AfAm >90 (>60 ml/min/1.73 sqM) Est GFR (CKD-EPI)NonAf >90 (>60 ml/min/1.73 sqM) Glucose 110 H (74-99) mg/dL Plasma Lactic Acid Wilver 1.4 (0.7-2.0) mmol/L Calcium 8.6 (8.4-10.2) mg/dL Magnesium 2.1 (1.6-2.3) mg/dL Total Bilirubin 0.4 (0.2-1.3) mg/dL AST 93 H (14-36) U/L ALT 66 H (4-34) U/L Alkaline Phosphatase 91 (38-126) U/L Total Protein 7.2 (6.3-8.2) g/dL Albumin 4.3 (3.5-5.0) g/dL Urine Color Urine Appearance (Clear) Urine pH (5.0-8.0) Ur Specific [place] (1.001-1.035) Urine Protein (Negative) Urine Glucose (UA) (Negative) Urine Ketones (Negative) Urine Blood (Negative) Urine Nitrite (Negative) Urine Bilirubin (Negative) Urine Urobilinogen (<2.0) mg/dL Ur Leukocyte Esterase (Negative) Urine RBC (0-5) /hpf Urine WBC (0-5) /hpf Ur Squamous Epith Cells (0-4) /hpf Urine Bacteria (None) /hpf Serum Alcohol 340 H* mg/dL Influenza Type A (PCR) Not Detected (Not Detectd) Influenza Type B (PCR) Not Detected (Not Detectd) RSV (PCR) Not Detected (Not Detectd) SARS-CoV-2 (PCR) Not Detected (Not Detectd) Disposition <Leonard Fajardo - Last Filed: 12/04/23 14:21> <Dawit Moran - Last Filed: 12/07/23 14:48> Clinical Impression: Alcohol withdrawal Disposition: ADMITTED IP TO THIS HOSP
[2023-11-27 15:15] LABS: Appearance,Urine Clear (Clear); Bacteria,Urine Occasional /hpf; Basophils % (A) 1 %; Bilirubin,Urine Negative (Negative); Blood,Urine Negative (Negative); Color,Urine Colorless; Eosinophils % (A) 1 %; Glucose,Urine (UA) Negative (Negative); HCT 40.8 % (34.0-46.0); HGB 13.3 gm/dL (11.4-16.0); Ketones,Urine Negative (Negative); Leukocyte Esterase,Urine Trace (Negative); Lymphocytes # (A) 1.2 k/uL (1.0-4.8); Lymphocytes % (A) 26 %; MCH 30.8 pg (25.0-35.0); MCHC 32.6 g/dL (31.0-37.0); MCV 94.4 fL (80.0-100.0); Monocytes # (A) 0.1 k/uL (0-1.0); Monocytes % (A) 2 %; Neutrophils # (A) 3.2 k/uL (1.3-7.7); Neutrophils % (A) 70 %; Nitrite,Urine Negative (Negative); PH, Urine 7.5 (5.0-8.0); Platelet Count 178 k/uL (150-450); Protein,Urine Negative (Negative); RBC 4.32 m/uL (3.80-5.40); RBC,Urine 1 /hpf (0-5); Specific Gravity,Urine 1.008 (1.001-1.035); Squamous Epithelial Cell,Urine 1 /hpf (0-4); Urobilinogen,Urine <2.0 mg/dL (<2.0); WBC 4.6 k/uL (3.8-10.6); WBC,Urine 3 /hpf (0-5)
[2023-11-27 15:22] LABS: Prothrombin Time 10.6 sec (10.0-12.5)
[2023-11-27 15:50] LABS: ALT 66 U/L (4-34); AST 93 U/L (14-36); African American GFR (CKD) >90 (>60 ml/min/1.73 sqM); Albumin 4.3 g/dL (3.5-5.0); Alkaline Phosphatase 91 U/L (38-126); Blood Urea Nitrogen 10 mg/dL (7-17); Calcium 8.6 mg/dL (8.4-10.2); Carbon Dioxide 24 mmol/L (22-30); Chloride 107 mmol/L (98-107); Glucose 110 mg/dL (74-99); Magnesium 2.1 mg/dL (1.6-2.3); Non-African American GFR(CKD) >90 (>60 ml/min/1.73 sqM); Total Bilirubin 0.4 mg/dL (0.2-1.3); Total Protein 7.2 g/dL (6.3-8.2)
--- NOTE | 2023-11-27 16:01 | XR ---
EXAMINATION TYPE: XR chest 2V DATE OF EXAM: 11/27/2023 COMPARISON: 05/14/2015 INDICATION: Dyspnea short of breath TECHNIQUE: Frontal and lateral views of the chest are obtained. FINDINGS: The heart size is normal. The pulmonary vasculature is normal. The lungs are clear. IMPRESSION: 1. No acute pulmonary process.
[2023-11-27 16:02] LABS: Anion Gap 15 mmol/L; Sodium 146 mmol/L (137-145)
[2023-11-27 16:37] LABS: Alcohol 340 mg/dL
[2023-11-27 16:41] LABS: Potassium 4.1 mmol/L (3.5-5.1)
[2023-11-27] MEDS ORDERED: NALOXONE 0.4 MG/ML 1 ML VIAL IV PRN (16:59)
[2023-11-27] MEDS ORDERED: THIAMINE 100 MG/ML 2 ML VIAL IM STA (16:59)
[2023-11-27] MEDS ORDERED: LORazepam 2 MG/ML INJ IV STA (17:10)
[2023-11-27] MEDS: SODIUM CHLORIDE 0.9% 1,000 ML IV SCH (17:19)
[2023-11-27] MEDS: LORazepam 2 MG/ML INJ IV PRN ×2 (17:19→23:10)
[2023-11-28] MEDS: SODIUM CHLORIDE 0.9% 1,000 ML IV SCH ×2 (00:50→19:21)
[2023-11-28] MEDS: LORazepam 2 MG/ML INJ IV PRN ×8 (02:05→23:26)
[2023-11-28 07:37] LABS: Basophils % (A) 0 %; Eosinophils % (A) 1 %; HCT 36.2 % (34.0-46.0); HGB 12.1 gm/dL (11.4-16.0); Lymphocytes # (A) 0.8 k/uL (1.0-4.8); Lymphocytes % (A) 19 %; MCH 31.8 pg (25.0-35.0); MCHC 33.5 g/dL (31.0-37.0); MCV 95.1 fL (80.0-100.0); Mean Platelet Volume 8.1; Monocytes # (A) 0.2 k/uL (0-1.0); Monocytes % (A) 4 %; Neutrophils # (A) 3.2 k/uL (1.3-7.7); Neutrophils % (A) 75 %; Platelet Count 142 k/uL (150-450); RBC 3.81 m/uL (3.80-5.40); RDW 12.9 % (11.5-15.5); WBC 4.2 k/uL (3.8-10.6)
[2023-11-28 07:51] LABS: ALT 52 U/L (4-34); AST 79 U/L (14-36); African American GFR (CKD) >90 (>60 ml/min/1.73 sqM); Albumin 3.4 g/dL (3.5-5.0); Alkaline Phosphatase 88 U/L (38-126); Anion Gap 8 mmol/L; Blood Urea Nitrogen 18 mg/dL (7-17); Calcium 8.2 mg/dL (8.4-10.2); Carbon Dioxide 27 mmol/L (22-30); Chloride 101 mmol/L (98-107); Glucose 103 mg/dL (74-99); Magnesium 1.8 mg/dL (1.6-2.3); Non-African American GFR(CKD) >90 (>60 ml/min/1.73 sqM); Phosphorus 3.6 mg/dL (2.5-4.5); Sodium 136 mmol/L (137-145); Total Bilirubin 0.8 mg/dL (0.2-1.3); Total Protein 6.2 g/dL (6.3-8.2)
[2023-11-28] MEDS: THIAMINE 100 MG TAB PO SCH (08:03)
[2023-11-28] MEDS: FOLIC ACID 1 MG TAB PO SCH (08:03)
[2023-11-28] MEDS: PANTOPRAZOLE 40 MG/10 ML VIAL IV SCH (08:03)
[2023-11-28] MEDS: MULTIVITAMINS, THERA 1 EACH TAB PO SCH (08:03)
[2023-11-28] MEDS ORDERED: NICOTINE 21MG/24HR PATCH TRANSDERM STA (08:59)
--- NOTE | 2023-11-28 11:03 | P.HPIM ---
History of Present Illness Patient is a 32-year-old female was brought in here after she was petitioned by her guardian and patient is found to have alcohol intoxication does drink about half a gallop of hard liquor every day. Patient is presently not having any withdrawals with expected to have withdrawals. Patient does have history of IV drug use does have history of hepatitis C with mildly elevated liver enzymes. Patient denied any suicidal or homicidal ideations. Patient is presently homeless. REVIEW OF SYSTEMS: CONSTITUTIONAL: No fever, no malaise, no fatigue. HEENT: No recent visual problems or hearing problems. Denied any sore throat. CARDIOVASCULAR: No chest pain, orthopnea, PND, no palpitations, no syncope. PULMONARY: No shortness of breath, no cough, no hemoptysis. GASTROINTESTINAL: No diarrhea, no nausea, no vomiting, no abdominal pain. NEUROLOGICAL: No headaches, no weakness, no numbness. HEMATOLOGICAL: Denies any bleeding or petechiae. GENITOURINARY: Denies any burning micturition, frequency, or urgency. MUSCULOSKELETAL/RHEUMATOLOGICAL: Denies any joint pain, swelling, or any muscle pain. ENDOCRINE: Denies any polyuria or polydipsia. The rest of the 14-point review of systems is negative. PHYSICAL EXAMINATION: GENERAL: The patient is drowsy and oriented x3, not in any acute distress. Well developed, well nourished. HEENT: Pupils are round and equally reacting to light. EOMI. No scleral icterus. No conjunctival pallor. Normocephalic, atraumatic. No pharyngeal erythema. No thyromegaly. CARDIOVASCULAR: S1 and S2 present. No murmurs, rubs, or gallops. PULMONARY: Chest is clear to auscultation, no wheezing or crackles. ABDOMEN: Soft, nontender, nondistended, normoactive bowel sounds. No palpable organomegaly. MUSCULOSKELETAL: No joint swelling or deformity. EXTREMITIES: No cyanosis, clubbing, or pedal edema. NEUROLOGICAL: Gross neurological examination did not reveal any focal deficits. SKIN: No rashes. Assessment and plan -Alcohol intoxication patient will be continued on IV fluids which will be switched to lactated Ringer's because of concerns of hyperkalemia -Alcohol abuse and withdrawals: Patient will be monitored and patient was started on Ativan CIWA protocol -Drug abuse, other psychiatric issues: Psychiatry will evaluate the patient patient presented denied any suicidal or homicidal ideations patient will also need social work evaluation for drug abuse and homelessness. Chronic hepatitis C with mild transaminitis neck to follow with the gastroneurology or infectious disease for treatment of chronic hep C. DVT prophylaxis: I'm not expecting to ambulate much because of which I'll start her on Lovenox for DVT prophylaxis Past Medical History Past Medical History: Liver Disease, Seizure Disorder, Supraventricular Tachycardia (SVT) Additional Past Medical History / Comment(s): SVT with cardiac ablation, lumbar DDD, bulging lumbar disc, ETOH abuse, alcohol withdrawals, pt states she has a seizure disorder and has alcohol withdrawal seizures with last seizure in 2020, drug abuse/pt states IV drug abuse, hepatitis C, lumbar DDD/bulging discs, migraines, sinus problems, past bilateral arm fractures/casted, past broken left ankle and leg/casted, ruptured spleen with surgery. History of Any Multi-Drug Resistant Organisms: ESBL Date of last positivie culture/infection: 01/17/22 MDRO Source:: ESBL URINE Past Surgical History: Bariatric Surgery, Cardiac Ablation, EPS, Orthopedic Surgery Additional Past Surgical History / Comment(s): Cardiac ablation for SVT, gastric sleeve, spleen repair, I&D L wrist. Past Anesthesia/Blood Transfusion Reactions: No Reported Reaction Additional Past Anesthesia/Blood Transfusion Reaction / Comment(s): Pt has clausterphobia. Past Psychological History: Anxiety, Bipolar, Depression, Panic Disorder Smoking Status: Current every day smoker Past Alcohol Use History: Daily Past Drug Use History: Heroin, IV Drug Use, Marijuana, Methamphetamine, Opiates, Prescription Drug Abuse - Past Family History Father History Unknown: Yes Family Medical History: COPD, Diabetes Mellitus Mother History Unknown: Yes Family Medical History: Asthma Additional Family Medical History / Comment(s): pt reports mother had cyclic vomiting issues, substance abuse history Sister(s) Family Medical History: Supraventricular Tachycardia (SVT) Additional Family Medical History / Comment(s): Sister had SVT. She is recently from overdose. Medications and Allergies Home Medications Medication Instructions Recorded Confirmed Type No Known Home Medications 09/27/23 11/27/23 History Allergies Allergy/AdvReac Type Severity Reaction Status Date / Time trazodone AdvReac dizziness Verified 11/27/23 16:32 Physical Exam Vitals: Vital Signs Temp Pulse Resp BP Pulse Ox 11/28/23 10:00 98.2 F 71 16 131/84 96 11/28/23 06:00 82 18 132/81 96 11/28/23 02:00 88 16 127/87 99 11/28/23 00:00 73 15 120/66 98 11/27/23 19:40 77 16 122/66 96 11/27/23 14:11 18 11/27/23 14:07 98.4 F 93 18 138/85 97 Results CBC & Chem 7: 11/28/23 06:51 11/28/23 06:51 Labs: Abnormal Lab Results - Last 24 Hours (Table) 11/27/23 11/27/23 11/28/23 Range/Units 15:01 15:01 06:51 Plt Count 142 L (150-450) k/uL Lymphocytes # 0.8 L (1.0-4.8) k/uL Sodium 146 H (137-145) mmol/L BUN (7-17) mg/dL Creatinine 0.51 L (0.52-1.04) mg/dL Glucose 110 H (74-99) mg/dL Calcium (8.4-10.2) mg/dL AST 93 H (14-36) U/L ALT 66 H (4-34) U/L Total Protein (6.3-8.2) g/dL Albumin (3.5-5.0) g/dL Ur Leukocyte Esterase Trace H (Negative) Urine Bacteria Occasional H (None) /hpf Serum Alcohol 340 H* mg/dL 11/28/23 Range/Units 06:51 Plt Count (150-450) k/uL Lymphocytes # (1.0-4.8) k/uL Sodium 136 L (137-145) mmol/L BUN 18 H (7-17) mg/dL Creatinine (0.52-1.04) mg/dL Glucose 103 H (74-99) mg/dL Calcium 8.2 L (8.4-10.2) mg/dL AST 79 H (14-36) U/L ALT 52 H (4-34) U/L Total Protein 6.2 L (6.3-8.2) g/dL Albumin 3.4 L (3.5-5.0) g/dL Ur Leukocyte Esterase (Negative) Urine Bacteria (None) /hpf Serum Alcohol mg/dL
[2023-11-28] MEDS: LACTATED RINGERS 1,000 ML IV SCH (11:52)
--- NOTE | 2023-11-28 15:21 | P.CN ---
Psychiatric Consult - . Consult date: 11/28/23 Consult:: 11/28/23 13:05 IDENTIFYING DATA: This patient is a 33-year-old female significant history of polysubstance abuse presents to the hospital for altered mental status in the context of polysubstance intoxication HISTORY OF PRESENT ILLNESS: The patient presented to the hospital on 11/27/23, presenting to the emergency department with altered mental status. Patient was brought in here after she was petitioned by her guardian and patient is found to have alcohol intoxication does drink about half a gallon of hard liquor every day. Patient is presently not having any withdrawals with expected to have withdrawals. Patient does have history of IV drug use does have history of hepatitis C with mildly elevated liver enzymes. Patient denied any suicidal or homicidal ideations. patient is staying with her boyfriend and her father. Spoke with patient and offered rehab, patient refused. Spoke with patient about cravings medication, patient agreeable to try naltrexone. Patient has complaints of nausea and weakenss for about the past 5 months. Patient is disheveled in appearance has several bruises and scabs over her arms and sores under her fingernails. Patient has poor hygiene. Patient is currently homeless and is unemployed. Claims she has bad moods and she gets emotional mainly when she is drinking, sometimes she is mean, she presents now as calm and cooperative however endorsing anxiety and withdrawal sx from etoh. CIWA protocol initiated to lessen withdraw symptoms. It is. Patient denying any suicidal or homicidal ideations intent or plan. Denying any auditory or visual hallucinations. She is denying any other current recreational drug use except for alcohol at this time. PAST PSYCHIATRIC HISTORY: The patient has a history of depression, anxiety, and polysubstance abuse including methamphetamine use disorder, opiate use disorder, and other psychoactive substance use disorders. Patient was last admitted onto our psychiatric unit in February 2022 and was discharged on a regimen of Lexapro, Neurontin, Seroquel, and prazosin. The patient has had at least 10 psychiatric inpatient admissions since 2016. Patient is nonadherent with any and all outpatient follow-up. PAST MEDICAL HISTORY: As per ED note ALLERGIES: Trazodone CHEMICAL DEPENDENCY HISTORY: Patient is actively using alcohol, methamphetamines, opiates, cocaine, marijuana, and also has a history of "huffing paint." FAMILY PSYCHIATRIC/SUBSTANCE USE HISTORY: Patient's sister reportedly by overdose. The patient's father abused cocaine. The patient's mother also is reportedly and abused multiple substances as well. SOCIAL HISTORY: Patient was born and raised in [place]. She completed high school. Currently unemployed, is homeless MENTAL STATUS EXAM: General Appearance: Patient appears to be stated age is alert, pleasant, and cooperative. Patient appears to have very disheveled hygiene and grooming wearing hospital gown with fair eye contact. Mulitple tattoos, sores on arms and under fingernails. Behavior: Patient is calmly lying in bed without any agitated behavior. Speech: Patient's speech is fluent and nonpressured. Mood/Affect: Patient reports their mood is "ok", affect is constricted. Suicidality/Homicidality: Patient denies any suicidal or homicidal ideation. Perceptions: Patient denies any visual hallucinations and denies any auditory hallucinations Though content/process: There is no evidence of any delusional thought content and thought process is linear Memory and concentration: AOX3, grossly intact for the purposes of this session. Can spell "WORLD" backwards Judgment and insight: chronically Poor IMPRESSIONS: alcohol intoxication and withdrawal, severe dependence Mood disorder unspecified Generalized anxiety disorder Hx of Polysubstance abuse including cocaine, benzodiazepines, opiates, and other psychoactive substances PLAN: -Continue your medical management -At this time patient DOES NOT meet criteria for inpatient psychiatric admission. The patient will remain at chronically high risk for harm to self due to her polysubstance abuse. Her primary diagnosis is her substance use disorders. She is not endorsing any suicidal or homicidal ideation, intention, and/or plan at this time. She is not overtly manic or psychotic. -Delirium precautions recommended with patient including - avoiding use of narcotics and HAND MOLDER MEAT sedatives, limit anticholinergic medications when possible, frequent re-orientation, minimize use of restraints, open window shades during the day and close them at night -Would recommend the following medication changes/additions: Add Naltrexone 50mg qd for alcohol cravings Valium taper schedule 10mg tid for alcohol withdraw, CIWA protocol with Ativan prn, Remeron 15mg qsh for anxiety/mood Zofolt 50mg po daily for mood/anxiety -patient is refusing rehab at this time and SW to offer outpatient AA meetings and also outpatient follow up information -Patient does not require one-to-one sitter -Psychiatry will sign off at this time. If there are any acute changes or concerns please call us.
[2023-11-28] MEDS: diazePAM 5 MG TAB PO SCH ×2 (17:25→21:49)
[2023-11-28] MEDS: SERTRALINE 50 MG TAB PO SCH (18:21)
[2023-11-28 19:54] LABS: Urine Alcohol Negative (Negative); Urine Barbiturate Negative (Negative); Urine Cocaine Negative (Negative); Urine Methadone Negative (Negative); Urine Opiates Negative (Negative); Urine Phencyclidine Negative (Negative)
[2023-11-28] MEDS: NALTREXONE HCL 50 MG TAB PO SCH (20:46)
[2023-11-28] MEDS: MIRTAZAPINE 15 MG TAB PO SCH (21:50)
[2023-11-28 22:07] LABS: Glucose,Whole Blood 128 mg/dL (70-110)
[2023-11-28] MEDS: DEXMEDETOMIDINE/0.9% NACL(PMX) 400 MCG in EMPTY BAG 1 BAG IV SCH (22:15)
[2023-11-28 22:43] LABS: Glucose,Whole Blood 138 mg/dL (70-110)
[2023-11-28] MEDS ORDERED: METOCLOPRAMIDE 5 MG/ML 2 ML VIAL IVP PRN (23:05)
[2023-11-28] MEDS ORDERED: LORazepam 2 MG/ML INJ IV STA (23:06)
[2023-11-28] MEDS ORDERED: KETOROLAC 15 MG/ML 1 ML VIAL IVP STA (23:35)
[2023-11-29] MEDS: LORazepam 2 MG/ML INJ IV PRN ×8 (01:25→23:56)
[2023-11-29] MEDS: HALOPERIDOL LACTATE 5 MG/ML 1 ML VIAL IVP PRN ×4 (01:26→21:43)
[2023-11-29] MEDS ORDERED: NALOXONE 0.4 MG/ML 1 ML VIAL IV PRN (03:32)
[2023-11-29] MEDS: DEXMEDETOMIDINE/0.9% NACL(PMX) 400 MCG in EMPTY BAG 1 BAG IV SCH ×4 (03:50→20:02)
[2023-11-29] MEDS: LACTATED RINGERS 1,000 ML IV SCH ×2 (06:20→19:30)
[2023-11-29] MEDS ORDERED: HALOPERIDOL LACTATE 5 MG/ML 1 ML VIAL IM STA (08:48)
[2023-11-29 10:04] LABS: Basophils % (A) 0 %; Eosinophils # (A) 0.2 k/uL (0-0.7); Eosinophils % (A) 2 %; HCT 39.5 % (34.0-46.0); HGB 13.5 gm/dL (11.4-16.0); Lymphocytes # (A) 0.7 k/uL (1.0-4.8); Lymphocytes % (A) 7 %; MCH 31.8 pg (25.0-35.0); MCHC 34.1 g/dL (31.0-37.0); MCV 93.2 fL (80.0-100.0); Mean Platelet Volume 9.8; Monocytes # (A) 0.2 k/uL (0-1.0); Monocytes % (A) 2 %; Neutrophils # (A) 8.8 k/uL (1.3-7.7); Neutrophils % (A) 89 %; Platelet Count 163 k/uL (150-450); RBC 4.24 m/uL (3.80-5.40); RDW 12.8 % (11.5-15.5); WBC 9.9 k/uL (3.8-10.6)
--- NOTE | 2023-11-29 10:30 | P.CNPUL ---
History of Present Illness Consult date: 11/29/23 Requesting physician: Cece Olmedo Reason for consult: other (Critical care management) Chief complaint: Weakness, altered mental status History of present illness: This is a 33-year-old female patient with a known history of hepatitis C, drug abuse leading heroin, methamphetamines, opiates, prescription drugs, gastric sleeve, alcohol abuse, SVT with previous ablations, chronic and ongoing tobacco dependence, panic disorder. She presented to the emergency room on 04/27/2024 with weakness and tremors altered mental status. She was originally admitted to the regular medical floor. Last evening approximately 10 PM and rapid response team was called as the patient had developed vomiting, thrashing about, see well up to 23. She was up slightly transferred to the intensive care unit and placed on Precedex currently at 1.4 mcg/kg per hour. She received a total of 5 mg of Ativan and 6 mg of Haldol for the past several hours. She is still arousable. Thrashing about in bed at times. drawer waxer in place. Chest x-ray reveals no acute pulmonary process. White count 9.9. Hemoglobin 13.5. Platelets 163. Sodium 136. Potassium 4.0. Bicarb 27. BUN 18. Creatinine 0.61. Glucose 138. Urine drug screen was negative. Viral screen was negative. Serum alcohol level was 340. She is currently maintaining O2 saturations up to 100% on room air. She's been afebrile. Bradycardic. Tachypneic. Review of Systems ROS unobtainable: due to mental status Past Medical History Past Medical History: Liver Disease, Seizure Disorder, Supraventricular Tachycardia (SVT) Additional Past Medical History / Comment(s): SVT with cardiac ablation, lumbar DDD, bulging lumbar disc, ETOH abuse, alcohol withdrawals, pt states she has a seizure disorder and has alcohol withdrawal seizures with last seizure in 2020, drug abuse/pt states IV drug abuse, hepatitis C, lumbar DDD/bulging discs, migraines, sinus problems, past bilateral arm fractures/casted, past broken left ankle and leg/casted, ruptured spleen with surgery. History of Any Multi-Drug Resistant Organisms: ESBL Date of last positivie culture/infection: 01/17/22 MDRO Source:: ESBL URINE Past Surgical History: Bariatric Surgery, Cardiac Ablation, EPS, Orthopedic Surgery Additional Past Surgical History / Comment(s): Cardiac ablation for SVT, gastric sleeve, spleen repair, I&D L wrist. Past Anesthesia/Blood Transfusion Reactions: No Reported Reaction Additional Past Anesthesia/Blood Transfusion Reaction / Comment(s): Pt has clausterphobia. Past Psychological History: Anxiety, Bipolar, Depression, Panic Disorder Smoking Status: Current every day smoker Past Alcohol Use History: Daily Past Drug Use History: Heroin, IV Drug Use, Marijuana, Methamphetamine, Opiates, Prescription Drug Abuse - Past Family History Father History Unknown: Yes Family Medical History: COPD, Diabetes Mellitus Mother History Unknown: Yes Family Medical History: Asthma Additional Family Medical History / Comment(s): pt reports mother had cyclic vomiting issues, substance abuse history Sister(s) Family Medical History: Supraventricular Tachycardia (SVT) Additional Family Medical History / Comment(s): Sister had SVT. She is recently from overdose. Medications and Allergies Home Medications Medication Instructions Recorded Confirmed Type No Known Home Medications 09/27/23 11/27/23 History Allergies Allergy/AdvReac Type Severity Reaction Status Date / Time trazodone AdvReac dizziness Verified 11/27/23 16:32 Physical Exam Vitals: Vital Signs Temp Pulse Pulse Resp BP BP Pulse Ox 11/29/23 07:10 58 L 34 H 150/96 99 11/29/23 07:00 26 H 150/101 100 11/29/23 06:50 54 L 29 H 150/101 11/29/23 06:40 26 H 150/101 11/29/23 06:30 51 L 33 H 141/95 11/29/23 06:20 56 L 33 H 141/95 11/29/23 06:10 5 L 141/95 100 11/29/23 06:00 55 L 30 H 152/97 100 11/29/23 05:50 49 L 28 H 152/97 100 11/29/23 05:40 65 26 H 137/88 100 11/29/23 05:30 78 27 H 149/104 100 11/29/23 05:20 72 29 H 149/104 99 11/29/23 05:10 65 149/104 11/29/23 05:00 56 L 28 H 145/66 100 11/29/23 04:50 55 L 25 H 145/66 100 11/29/23 04:40 64 31 H 145/66 100 11/29/23 04:30 62 29 H 100 11/29/23 04:20 92 27 H 100 11/29/23 04:10 85 25 H 124/95 11/29/23 04:00 65 124/95 100 11/29/23 03:50 57 L 124/95 100 11/29/23 03:40 89 124/95 100 11/29/23 03:30 65 141/86 100 11/29/23 03:20 70 142/90 11/29/23 03:10 62 142/90 11/29/23 03:00 142/90 11/29/23 02:50 142/90 11/29/23 02:40 142/90 11/29/23 02:30 76 142/90 11/29/23 02:20 65 142/90 100 11/29/23 02:10 80 155/96 100 11/29/23 02:00 76 112/100 98 11/29/23 01:50 61 112/100 11/29/23 01:40 25 H 112/100 93 L 11/29/23 01:30 21 112/100 11/29/23 01:20 67 33 H 112/100 99 11/29/23 01:10 63 23 112/100 100 11/29/23 01:00 78 30 H 112/100 11/29/23 00:50 76 28 H 112/100 11/29/23 00:40 76 38 H 139/90 11/29/23 00:30 66 21 124/93 11/29/23 00:20 86 28 H 124/93 95 11/29/23 00:10 66 27 H 148/116 96 11/29/23 00:00 60 25 H 156/128 95 11/28/23 23:50 77 26 H 156/128 96 11/28/23 23:40 79 25 H 164/103 93 L 11/28/23 23:30 73 30 H 132/111 94 L 11/28/23 23:20 66 30 H 132/111 88 L 11/28/23 23:10 84 22 115/96 89 L 11/28/23 23:00 98.0 F 85 27 H 112/95 91 L 11/28/23 22:50 76 30 H 112/95 97 11/28/23 22:40 83 26 H 90 L 11/28/23 22:38 28 H 98 11/28/23 21:48 98.1 F 89 18 145/69 97 11/28/23 20:49 98.5 F 96 18 146/92 100 11/28/23 19:26 98.5 F 95 18 120/83 100 11/28/23 18:22 78 16 121/70 97 11/28/23 14:05 98 F 68 16 127/77 96 Intake and Output 11/28/23 11/29/23 11/29/23 22:59 06:59 14:59 Intake Total 0.851 624.149 75 Output Total 1 Balance 0.851 623.149 75 Intake: Intake, IV Titration 0.851 624.149 75 Amount Dexmedetomidine/0.9% NaCl 0.851 99.149 (Pmx) 400 mcg In Empty Bag 1 bag @ 0.2 MCG/KG/HR 3.402 mls/hr IV .[id number] LAW Rx#:[id number] Lactated Ringers 1,000 ml 525 75 @ 75 mls/hr IV .[id number] LAW Rx#:[id number] Output: Urine 1 Other: # Voids 1 # Bowel Movements 1 Weight 68.7 kg GENERAL EXAM: Arousable, restless, agitated 33-year-old female, on 2 L nasal cannula. HEAD: Normocephalic. EYES: Normal reaction of pupils, equal size. NOSE: Clear with pink turbinates. THROAT: No erythema or exudates. NECK: No masses, no JVD. CHEST: No chest wall deformity. LUNGS: Equal air entry with no crackles, wheeze, rhonchi or dullness. CVS: S1 and S2 normal with no audible murmur, regular rhythm. ABDOMEN: No hepatosplenomegaly, normal bowel sounds, no guarding or rigidity. SPINE: No scoliosis or deformity SKIN: No rashes CENTRAL NERVOUS SYSTEM: No focal deficits, tone is normal in all 4 extremities. EXTREMITIES: There is no peripheral edema. No clubbing, no cyanosis. Peripheral pulses are intact. Results - Laboratory Findings CBC and BMP: 11/29/23 09:55 11/28/23 06:51 PT/INR, D-dimer PT 10.6 sec (10.0-12.5) 11/27/23 15:01 INR 1.0 (<1.2) 11/27/23 15:01 Abnormal lab findings: Abnormal Labs 11/27/23 11/27/23 11/28/23 15:01 15:01 06:51 Plt Count 142 L Neutrophils # Lymphocytes # 0.8 L Sodium 146 H BUN Creatinine 0.51 L Glucose 110 H POC Glucose (mg/dL) Calcium AST 93 H ALT 66 H Total Protein Albumin Ur Leukocyte Esterase Trace H Urine Bacteria Occasional H Serum Alcohol 340 H* 11/28/23 11/28/23 11/28/23 06:51 22:06 22:32 Plt Count Neutrophils # Lymphocytes # Sodium 136 L BUN 18 H Creatinine Glucose 103 H POC Glucose (mg/dL) 128 H 138 H Calcium 8.2 L AST 79 H ALT 52 H Total Protein 6.2 L Albumin 3.4 L Ur Leukocyte Esterase Urine Bacteria Serum Alcohol 11/29/23 09:55 Plt Count Neutrophils # 8.8 H Lymphocytes # 0.7 L Sodium BUN Creatinine Glucose POC Glucose (mg/dL) Calcium AST ALT Total Protein Albumin Ur Leukocyte Esterase Urine Bacteria Serum Alcohol - Diagnostic Findings Chest x-ray: image reviewed Assessment and Plan Assessment: Acute alcohol withdrawal syndrome, presenting alcohol level 340 History of alcoholism History of alcohol withdrawal seizures History of drug abuse History of hepatitis C Mild transaminitis Chronic and ongoing tobacco dependence History of homelessness Plan: The patient was seen and evaluated Chest x-ray, labs and medications reviewed To be on Precedex 24 hours only Add Haldol 4-8 mg every 4 hours Continue CIWA protocol Continue to monitor closely here in the intensive care unit Continue chief security and safety officer at the bedside Seizure precautions We will continue to follow and make further recommendations based on her clinical status I have personally seen and examined the patient, performed the documentation and the assessment and plan as written. Number of minutes spent on the visit: 20.
[2023-11-29] MEDS: ENOXAPARIN 40 MG/0.4 ML SYRINGE SQ SCH (10:49)
[2023-11-29] MEDS: PANTOPRAZOLE 40 MG/10 ML VIAL IV SCH (10:49)
[2023-11-29] MEDS: MULTIVITAMINS, THERA 1 EACH TAB PO SCH (11:00)
[2023-11-29] MEDS: NALTREXONE HCL 50 MG TAB PO SCH (11:00)
[2023-11-29] MEDS: FOLIC ACID 1 MG TAB PO SCH (11:00)
[2023-11-29] MEDS: SERTRALINE 50 MG TAB PO SCH (11:01)
[2023-11-29] MEDS: THIAMINE 100 MG TAB PO SCH (11:01)
[2023-11-29 12:09] LABS: African American GFR (CKD) >90 (>60 ml/min/1.73 sqM); Anion Gap 8 mmol/L; Blood Urea Nitrogen 11 mg/dL (7-17); Calcium 8.9 mg/dL (8.4-10.2); Carbon Dioxide 22 mmol/L (22-30); Chloride 107 mmol/L (98-107); Glucose 136 mg/dL (74-99); Magnesium 1.7 mg/dL (1.6-2.3); Non-African American GFR(CKD) >90 (>60 ml/min/1.73 sqM); Potassium 4.5 mmol/L (3.5-5.1); Sodium 137 mmol/L (137-145)
[2023-11-29 12:26] LABS: HCG,Quantitative Serum <2.4 mIU/mL
[2023-11-29] MEDS: MIRTAZAPINE 15 MG TAB PO SCH (20:53)
[2023-11-30 00:14] LABS: Glucose,Whole Blood 107 mg/dL (70-110)
[2023-11-30] MEDS: LORazepam 2 MG/ML INJ IV PRN ×14 (01:09→22:53)
[2023-11-30] MEDS: HALOPERIDOL LACTATE 5 MG/ML 1 ML VIAL IVP PRN ×3 (02:19→12:59)
[2023-11-30] MEDS: LACTATED RINGERS 1,000 ML IV SCH ×2 (04:19→17:02)
--- NOTE | 2023-11-30 05:25 | P.PN ---
Subjective Progress Note Date: 11/29/23 Patient is a 33-year-old female was brought in here after she was petitioned by her guardian and patient is found to have alcohol intoxication does drink about half a gallon of hard liquor every day. Patient is presently not having any withdrawals with expected to have withdrawals. Patient does have history of IV drug use does have history of hepatitis C with mildly elevated liver enzymes. Patient denied any suicidal or homicidal ideations. Patient is presently homeless. 11/29/2023 Patient is seen in follow-up this morning monitored in the ICU on CIWA protocol and per nursing staff patient was having significant withdrawals overnight and brought to the ICU for closer monitoring. Psychiatry evaluated the patient making recommendations including starting naltrexone although patient was r eported to use IV drugs including heroin one day prior to admission and per pharmacy is contraindicated at this time to start this medication. Recommend holding this medication until reevaluation by psychiatry and patient's mentation is improved. Patient is currently sleeping although arousable and becomes extremely agitated and restless and continues to be confused at this time. Patient is not safely able to take medications orally at this state and would highly recommend avoiding oral medications at this time. Patient is afebrile and there is been no reported shortness of breath or chest pains. Patient continues with the sitter at the bedside Review of systems: Unable to completely assess as patient is currently sleeping PHYSICAL EXAMINATION: GENERAL: The patient is drowsy and sleeping currently, anxious and agitated when awake. Well developed, well nourished. HEENT: Pupils are round and equally reacting to light. EOMI. No scleral icterus. No conjunctival pallor. Normocephalic, atraumatic. No pharyngeal erythema. No thyromegaly. CARDIOVASCULAR: S1 and S2 present. No murmurs, rubs, or gallops. PULMONARY: Chest is clear to auscultation, no wheezing or crackles. ABDOMEN: Soft, nontender, nondistended, normoactive bowel sounds. No palpable organomegaly. MUSCULOSKELETAL: No joint swelling or deformity. EXTREMITIES: No cyanosis, clubbing, or pedal edema. NEUROLOGICAL: Gross neurological examination did not reveal any focal deficits. Diffusely weak SKIN: No rashes. Assessment: -Alcohol intoxication with history of alcohol abuse and acute delirium tremens -Hyperkalemia, improved -Alcohol abuse and withdrawals: Patient will be monitored and continued on Ativa n CIWA protocol -Drug abuse, other psychiatric issues -Chronic hepatitis C with mild transaminitis -DVT prophylaxis: on Lovenox for DVT prophylaxis -GI prophylaxis -Full code Plan: Patient is currently maintained in the ICU being closely monitored on CIWA protocol Patient continues on Precedex as patient was extremely agitated overnight with active withdrawals noted Psychiatry has evaluated the patient recommending continuing with alcohol withdrawal protocol and providing social support resources including alcohol rehab on discharge and reports patient does not meet inpatient criteria for p sych and has signed off. Naltrexone was prescribed although will hold for now as per pharmacy, not indicated on someone who would recently used heroin and IV drugs Patient needs to be reevaluated by psychiatry once more awake and alert Patient does have a legal public guardian with no visitors allowed at this time Continue occupational safety specialist at the bedside Follow-up on repeat labs Would recommend holding oral medications until patient is more alert as patient is high risk for aspiration at this time The impression and plan of care has been dictated by Jasmina Irizarry, Nurse Practitioner as directed. Dr. Honorio MD I have performed a history and examination and MDM of this patient, discussed the same with the dictator, and agree with the dictator's assessment and plan as written ,documented as a scribe. Based on total visit time, I have performed more than 50% of the visit. Objective - Vital Signs Vital signs: Vital Signs Temp 98.0 F 11/28/23 23:00 Pulse 58 L 11/29/23 07:10 Resp 34 H 11/29/23 07:10 BP 150/96 11/29/23 07:10 Pulse Ox 99 11/29/23 07:10 FiO2 Intake & Output 11/28/23 11/29/23 11/29/23 18:59 06:59 18:59 Intake Total 625.000 75 Output Total 1 Balance 624.000 75 Weight 68.7 kg Intake: Intake, IV Titration 625.000 75 Amount Dexmedetomidine/0.9% NaCl 100.000 (Pmx) 400 mcg In Empty Bag 1 bag @ 0.2 MCG/KG/HR 3.402 mls/hr IV .Q24H [facility] Rx#:[id number] Lactated Ringers 1,000 ml 525 75 @ 75 mls/hr IV .[id number] [facility] Rx#:[id number] Output: Urine 1 Other: # Voids 1 # Bowel Movements 1 - Labs CBC & Chem 7: 11/29/23 09:55 11/29/23 11:00 Labs: Abnormal Lab Results - Last 24 Hours (Table) 11/28/23 11/28/23 Range/Units 22:06 22:32 POC Glucose (mg/dL) 128 H 138 H (70-110) mg/dL
[2023-11-30 05:27] LABS: Basophils % (A) 0 %; Eosinophils % (A) 0 %; HCT 37.1 % (34.0-46.0); HGB 12.7 gm/dL (11.4-16.0); Lymphocytes # (A) 1.1 k/uL (1.0-4.8); Lymphocytes % (A) 14 %; MCH 31.9 pg (25.0-35.0); MCHC 34.2 g/dL (31.0-37.0); MCV 93.2 fL (80.0-100.0); Mean Platelet Volume 9.1; Monocytes # (A) 0.3 k/uL (0-1.0); Monocytes % (A) 4 %; Neutrophils # (A) 6.1 k/uL (1.3-7.7); Neutrophils % (A) 80 %; Platelet Count 136 k/uL (150-450); RBC 3.98 m/uL (3.80-5.40); RDW 12.8 % (11.5-15.5); WBC 7.6 k/uL (3.8-10.6)
[2023-11-30 05:49] LABS: African American GFR (CKD) >90 (>60 ml/min/1.73 sqM); Anion Gap 9 mmol/L; Blood Urea Nitrogen 13 mg/dL (7-17); Calcium 8.8 mg/dL (8.4-10.2); Carbon Dioxide 22 mmol/L (22-30); Chloride 104 mmol/L (98-107); Glucose 117 mg/dL (74-99); Non-African American GFR(CKD) >90 (>60 ml/min/1.73 sqM); Potassium 3.7 mmol/L (3.5-5.1); Sodium 135 mmol/L (137-145)
[2023-11-30] MEDS ORDERED: Potassium Replacement Protocol 1 EACH MISC MISCELLANE PRN (05:51)
[2023-11-30] MEDS ORDERED: POTASSIUM CHLORIDE ER 20 MEQ TAB.ER PO SCH (06:00)
[2023-11-30] MEDS ORDERED: Magnesium Replacement Protocol 1 EACH MISC MISCELLANE PRN (06:12)
[2023-11-30] MEDS ORDERED: MAGNESIUM SULFATE-D5W PMX 1 GM in DEXTROSE/WATER 1 100ML.BAG IVPB ONE (06:30)
[2023-11-30 06:50] LABS: Glucose,Whole Blood 125 mg/dL (70-110)
[2023-11-30] MEDS: PANTOPRAZOLE 40 MG/10 ML VIAL IV SCH (08:34)
[2023-11-30] MEDS: FOLIC ACID 1 MG TAB PO SCH (08:35)
[2023-11-30] MEDS: THIAMINE 100 MG TAB PO SCH (08:35)
[2023-11-30] MEDS: MULTIVITAMINS, THERA 1 EACH TAB PO SCH (08:35)
[2023-11-30] MEDS: ENOXAPARIN 40 MG/0.4 ML SYRINGE SQ SCH (08:35)
[2023-11-30] MEDS: SERTRALINE 50 MG TAB PO SCH (08:35)
[2023-11-30] MEDS ORDERED: NALTREXONE HCL 50 MG TAB PO SCH (09:00)
[2023-11-30] MEDS ORDERED: cloNIDine 0.2 MG/24HR PATCH TRANSDERM SCH (10:00)
[2023-11-30] MEDS: NICOTINE 21MG/24HR PATCH TRANSDERM SCH (10:59)
[2023-11-30] MEDS: ONDANSETRON 4 MG/2 ML VIAL IVP PRN ×2 (10:59→22:52)
--- NOTE | 2023-11-30 11:32 | P.PN ---
Subjective Progress Note Date: 11/30/23 This is a 33-year-old female patient with a known history of hepatitis C, drug abuse leading heroin, methamphetamines, opiates, prescription drugs, gastric sleeve, alcohol abuse, SVT with previous ablations, chronic and ongoing tobacco dependence, panic disorder. She presented to the emergency room on 04/27/2024 with weakness and tremors altered mental status. She was originally admitted to the regular medical floor. Last evening approximately 10 PM and rapid response team was called as the patient had developed vomiting, thrashing about, see well up to 23. She was up slightly transferred to the intensive care unit and placed on Precedex currently at 1.4 mcg/kg per hour. She received a total of 5 mg of Ativan and 6 mg of Haldol for the past several hours. She is still arousable. Thrashing about in bed at times. electric tool repairer in place. Chest x-ray reveals no acute pulmonary process. White count 9.9. Hemoglobin 13.5. Platelets 163. Sodium 136. Potassium 4.0. Bicarb 27. BUN 18. Creatinine 0.61. Glucose 138. Urine drug screen was negative. Viral screen was negative. Serum alcohol level was 340. She is currently maintaining O2 saturations up to 100% on room air. She's been afebrile. Bradycardic. Tachypneic. The patient is seen today 11/30/2023 in follow-up in the intensive care unit. She has remained quite restless and agitated. She completed her 24 hours of Pre cedex. She had been requiring Ativan hourly. She is receiving Haldol 8 mg every 4 hours without much improvement. She remains on Zoloft and Remeron. She has pulled out most of her IVs and cultures. She defecated in the trash can. She is maintaining good O2 saturations in the 90s on room air. White count 7.6. Hemoglobin 12.7. Platelets 136. Sodium 135. Potassium 3.7. Bicarb 22. BUN 13. Creatinine 0.58. Glucose 117. She is on Lovenox for DVT prophylaxis. Objective - Vital Signs Vital signs: Vital Signs Temp 97.9 F 11/30/23 08:00 Pulse 75 11/30/23 08:00 Resp 18 11/30/23 08:00 BP 119/80 11/30/23 08:00 Pulse Ox 97 11/30/23 08:00 FiO2 Intake & Output 11/29/23 11/30/23 11/30/23 18:59 06:59 18:59 Intake Total 1175 860.310 75 Output Total 750 Balance 425 860.310 75 Weight 74.4 kg Intake: IV 900 750 75 Lactated Ringers 1,000 ml 900 750 75 @ 75 mls/hr IV .[id number] [facility] Rx#:[id number] Intake, IV Titration 275 110.310 Amount Dexmedetomidine/0.9% NaCl 200 110.310 (Pmx) 400 mcg In Empty Bag 1 bag @ 0.2 MCG/KG/HR 3.402 mls/hr IV .Q24H [facility] Rx#:[id number] Lactated Ringers 1,000 ml 75 @ 75 mls/hr IV .[id number] [facility] Rx#:[id number] Output: Urine 750 Other: Voiding Method Diaper Diaper Incontinent Incontinent # Voids 1 0 2 # Bowel Movements 1 2 - Exam GENERAL EXAM: Restless, disheveled 33-year-old female, on room air, in no apparent distress. HEAD: Normocephalic. EYES: Normal reaction of pupils, equal size. NOSE: Clear with pink turbinates. THROAT: No erythema or exudates. NECK: No masses, no JVD. CHEST: No chest wall deformity. LUNGS: Equal air entry with no crackles, wheeze, rhonchi or dullness. CVS: S1 and S2 normal with no audible murmur, regular rhythm. ABDOMEN: No hepatosplenomegaly, normal bowel sounds, no guarding or rigidity. SPINE: No scoliosis or deformity SKIN: No rashes CENTRAL NERVOUS SYSTEM: No focal deficits, tone is normal in all 4 extremities. EXTREMITIES: There is no peripheral edema. No clubbing, no cyanosis. Peripheral pulses are intact. - Labs CBC & Chem 7: 11/30/23 04:34 11/30/23 04:34 Labs: Abnormal Lab Results - Last 24 Hours (Table) 11/29/23 11/30/23 11/30/23 Range/Units 11:00 04:34 04:34 Plt Count 136 L (150-450) k/uL Sodium 135 L (137-145) mmol/L Creatinine 0.48 L (0.52-1.04) mg/dL Glucose 136 H 117 H (74-99) mg/dL POC Glucose (mg/dL) (70-110) mg/dL 11/30/23 Range/Units 06:48 Plt Count (150-450) k/uL Sodium (137-145) mmol/L Creatinine (0.52-1.04) mg/dL Glucose (74-99) mg/dL POC Glucose (mg/dL) 125 H (70-110) mg/dL Assessment and Plan Assessment: Acute alcohol withdrawal syndrome, presenting alcohol level 340 History of alcoholism History of alcohol withdrawal seizures History of drug abuse History of hepatitis C Mild transaminitis Chronic and ongoing tobacco dependence History of homelessness Plan: The patient was seen and evaluated Labs and medications reviewed Remains restless, agitated Add Librium 20 mg 4 times a day Add clonidine 0.2 mg patch weekly Increase Ativan to 2 mg IV every hour as needed Add NicoDerm patch Continue CIWA protocol Continue to monitor closely in the intensive care unit Continue process safety specialist at the bedside Seizure precautions We will continue to follow I have personally seen and examined the patient, performed the documentation and the assessment and plan as written. Number of minutes spent on the visit: 10.
--- NOTE | 2023-11-30 12:38 | XR ---
EXAMINATION TYPE: XR KUB portable DATE OF EXAM: 11/30/2023 COMPARISON: None INDICATION: Epigastric pain TECHNIQUE: Single view abdomen frontal projection FINDINGS: Colonic bowel gas is present. Some nonspecific small bowel gas may be present as well. No mass effect is evident. Psoas margins are normal. No organomegaly is present. IMPRESSION: 1. Nonspecific bowel gas pattern
[2023-11-30] MEDS: DEXMEDETOMIDINE/0.9% NACL(PMX) 400 MCG in EMPTY BAG 1 BAG IV SCH ×2 (13:45→18:16)
--- NOTE | 2023-11-30 16:09 | P.PN ---
Progress Note - Text Progress Note Date: 11/30/23 Interval History: Patient was seen bedside this afternoon. She was last seen by Dr. Hernandez on 11/28/23 for alcohol withdrawal and polysubstance abuse. At the time, naltrexone was added although this was not dispensed due to interaction with patient recent use of heroin. Patient is also on CIWA protocol, Remeron 15 mg, and Zoloft 50 mg daily. Patient is also on Librium 20 mg QID, Haldol 4 mg and 8 mg Q4H PRN for agitation and clonidine 0.5 mg patch. She is consistently scoring above 20 on CIWA protocol today. She was also resumed on Precedex at 3 PM today. Today, patient was experiencing repetitive emesis and then was attempting to answer provider's questions. She endorses having used heroin on a daily basis and alcohol on a daily basis prior to admission. She reports last time she used both was just prior to coming into the hospital. She currently reports that her mood is "terrible". She endorses having tried methadone in the past and is hoping to go back to this in the future. She reports having been to rehab many times and does not have any interest in going there when discussed today. At this time patient denies any suicidal or homicidal ideations, intent or plan. Patient denies any auditory, visual hallucinations and denies any paranoia or delusions. Patient denies any side effects from the medications and has been compliant with meds. Vital Signs Temp 98.2 F 11/30/23 12:00 Pulse 74 11/30/23 15:00 Resp 24 11/30/23 15:00 BP 140/75 11/30/23 15:00 Pulse Ox 98 11/30/23 15:00 FiO2 Intake & Output 11/29/23 11/30/23 11/30/23 18:59 06:59 18:59 Intake Total 1175 474.119 9380.300 Output Total 750 Balance 425 993.223 4534.300 Weight 74.4 kg Intake: IV 900 750 600 Lactated Ringers 1,000 ml 900 750 600 @ 75 mls/hr IV .[id number] [facility] Rx#:[id number] Intake, IV Titration 275 110.310 9.300 Amount Dexmedetomidine/0.9% NaCl 200 110.310 (Pmx) 400 mcg In Empty Bag 1 bag @ 0.2 MCG/KG/HR 3.402 mls/hr IV .Q24H [facility] Rx#:[id number] Dexmedetomidine/0.9% NaCl 9.300 (Pmx) 400 mcg In Empty Bag 1 bag @ 0.2 MCG/KG/HR 3.72 mls/hr IV .Q24H [facility] Rx#:[id number] Lactated Ringers 1,000 ml 75 @ 75 mls/hr IV .[id number] [facility] Rx#:[id number] Tube Feeding 400 Output: Urine 750 Other: Voiding Method Diaper Diaper Diaper Incontinent Incontinent Incontinent # Voids 1 0 1 # Bowel Movements 1 2 MSE General Appearance: Patient appears to be stated age is alert, pleasant, and cooperative. Patient appears to have very disheveled hygiene and grooming wearing hospital gown with fair eye contact. Mulitple tattoos, sores on arms and under fingernails. Behavior: Patient is calmly lying in bed without any agitated behavior. Vomiting Speech: Patient's speech is fluent and nonpressured. Mood/Affect: Patient reports their mood is "terrible", affect is constricted. Suicidality/Homicidality: Patient denies any suicidal or homicidal ideation. Perceptions: Patient denies any visual hallucinations and denies any auditory hallucinations Though content/process: There is no evidence of any delusional thought content and thought process is linear Memory and concentration: AOX3, grossly intact for the purposes of this session. Judgment and insight: chronically Poor IMPRESSIONS: Alcohol use disorder, severe, currently in withdrawal Opioid use disorder, severe, currently in withdrawal Mood disorder unspecified Generalized anxiety disorder Hx of Polysubstance abuse including cocaine, benzodiazepines, opiates, and other psychoactive substances PLAN: -Continue your medical management -At this time patient DOES NOT meet criteria for inpatient psychiatric admission. The patient will remain at chronically high risk for harm to self due to her polysubstance abuse. Her primary diagnosis is her substance use disorders. She is not endorsing any suicidal or homicidal ideation, intention, and/or plan at this time. She is not overtly manic or psychotic. -Delirium precautions recommended with patient including - avoiding use of narcotics and OYSTER FISHERMAN sedatives, limit anticholinergic medications when possible, frequent re-orientation, minimize use of restraints, open window shades during the day and close them at night -Would recommend the following medication changes/additions: Start Suboxone 4/1 mg BID (scoring >10 on COWS) for opioid withdrawal- RN, please monitor COWS CIWA protocol with Ativan prn - per primary team On precedex per primary team Remeron 15mg qsh for anxiety/mood Zoloft 50mg po daily for mood/anxiety -Patient is refusing rehab at this time and SW to offer outpatient peer substance disorder meetings and also outpatient MH follow up information -Patient does not require one-to-one sitter -Psychiatry will continue to follow.
[2023-11-30] MEDS: BUPRENORPHINE-NALOX 8-2 MG TAB 1 EACH TAB.SUBL SL SCH (16:58)
[2023-11-30] MEDS: MIRTAZAPINE 15 MG TAB PO SCH (20:57)
--- NOTE | 2023-11-30 23:48 | P.PN ---
Subjective Patient is a 33-year-old female was brought in here after she was petitioned by her guardian and patient is found to have alcohol intoxication does drink about half a gallon of hard liquor every day. Patient is presently not having any withdrawals with expected to have withdrawals. Patient does have history of IV drug use does have history of hepatitis C with mildly elevated liver enzymes. Patient denied any suicidal or homicidal ideations. Patient is presently homeless. 11/29/2023 Patient is seen in follow-up this morning monitored in the ICU on CIWA protocol and per nursing staff patient was having significant withdrawals overnight and brought to the ICU for closer monitoring. Psychiatry evaluated the patient making recommendations including starting naltrexone although patient was reported to use IV drugs including heroin one day prior to admission and per pharmacy is contraindicated at this time to start this medication. Recommend holding this medication until reevaluation by psychiatry and patient's mentation is improved. Patient is currently sleeping although arousable and becomes extremely agitated and restless and continues to be confused at this time. Patient is not safely able to take medications orally at this state and would highly recommend avoiding oral medications at this time. Patient is afebrile an d there is been no reported shortness of breath or chest pains. Patient continues with the sitter at the bedside 12/17/2023 Patient awake, somewhat confused somewhat agitated, start at bedside. Patient herself denies specific symptoms Labs looks stable, mildly tachypneic She remains on CIWA protocol, Librium, gentle hydration clonidine patch, IV Haldol when necessary Suboxone added today by psychiatrist CBC and BMP are unremarkable Chest x-rays negative Patient had elevated alcohol level CCCXL on admission Review of systems CONSTITUTIONAL: No fever, no malaise, no fatigue. HEENT: No recent visual problems or hearing problems. Denied any sore throat. CARDIOVASCULAR: No orthopnea, PND, no palpitations, no syncope. PULMONARY: No shortness of breath, no cough, no hemoptysis. GASTROINTESTINAL: No diarrhea, no nausea, no vomiting, no abdominal pain. Normoactive bowel sounds. Active Medications Generic Name Dose Route Start Last Admin Trade Name Freq PRN Reason Stop Dose Admin Buprenorphine/Naloxone 0.5 each 11/30/23 17:00 11/30/23 16:58 Buprenorphine-Nalox 8-2 Mg Tab 1 Each Tab.Subl SL 0.5 each BID LAW Administration Chlordiazepoxide HCl 20 mg 11/30/23 09:45 11/30/23 20:57 Chlordiazepoxide 10 Mg Cap PO 20 mg QID LAW Administration Clonidine HCl 1 patch 11/30/23 10:00 11/30/23 10:43 Clonidine 0.2 Mg/24hr Patch TRANSDERM 1 patch Q7D [facility] Administration Enoxaparin Sodium 40 mg 11/29/23 09:00 11/30/23 08:35 Enoxaparin 40 Mg/0.4 Ml Syringe SQ 40 mg DAILY [facility] Administration Folic Acid 1 mg 11/28/23 09:00 11/30/23 08:35 Folic Acid 1 Mg Tab PO 1 mg DAILY LAW Administration Haloperidol Lactate 4 mg 11/29/23 08:27 11/29/23 13:13 Haloperidol Lactate 5 Mg/Ml 1 Ml Vial IVP 4 mg Q4HR PRN Administration Agitation or Acute Psychosis Haloperidol Lactate 8 mg 11/29/23 08:27 11/30/23 12:59 Haloperidol Lactate 5 Mg/Ml 1 Ml Vial IVP 8 mg Q4HR PRN Administration Agitation or Acute Psychosis Lactated Ringer's 1,000 mls @ 75 mls/hr 11/28/23 11:00 11/30/23 17:02 Lactated Ringers IV 75 mls/hr .[id number] [facility] Administration Dexmedetomidine HCl 400 mcg/ 100 mls @ 3.72 mls/hr 11/30/23 13:45 11/30/23 1 8:46 IV Solution IV 1 mcg/kg/hr .Q24H [facility] 18.6 mls/hr Titration Protocol 0.2 MCG/KG/HR Lorazepam 1 mg 11/27/23 16:59 11/28/23 20:46 Lorazepam 2 Mg/Ml Inj IV 1 mg Q2HR PRN Administration CIWA 8 or 9 Lorazepam 2 mg 11/30/23 09:33 11/30/23 22:53 Lorazepam 2 Mg/Ml Inj IV 2 mg Q1HR PRN Administration CIWA 10 to 15 Metoclopramide HCl 5 mg 11/28/23 23:05 11/28/23 23:19 Metoclopramide 5 Mg/Ml 2 Ml Vial IVP 5 mg Q6HR PRN Administration Diarrhea Mirtazapine 15 mg 11/28/23 21:00 11/30/23 20:57 Mirtazapine 15 Mg Tab PO 15 mg HS LAW Administration Miscellaneous Information 1 each 11/30/23 05:51 Potassium Replacement Protocol 1 Each Misc MISCELLANE DAILY PRN Per Protocol Protocol Miscellaneous Information 1 each 11/30/23 06:12 Magnesium Replacement Protocol 1 Each Misc MISCELLANE DAILY PRN Per Protocol Protocol Multivitamins 1 each 11/28/23 09:00 11/30/23 08:35 Multivitamins, Thera 1 Each Tab PO 1 each DAILY [facility] Administration Naloxone HCl 0.2 mg 11/29/23 03:32 Naloxone 0.4 Mg/Ml 1 Ml Vial IV Q2M PRN Opioid Reversal Nicotine 1 patch 11/30/23 09:45 11/30/23 10:59 Nicotine 21mg/24hr Patch TRANSDERM 1 patch DAILY [facility] Administration Ondansetron HCl 4 mg 11/27/23 16:59 11/30/23 22:52 Ondansetron 4 Mg/2 Ml Vial IVP 4 mg Q8HR PRN Administration Nausea And Vomiting Pantoprazole Sodium 40 mg 11/28/23 09:00 11/30/23 08:34 Pantoprazole 40 Mg/10 Ml Vial IV 40 mg DAILY LAW Administration Sertraline HCl 50 mg 11/28/23 15:15 11/30/23 08:35 Sertraline 50 Mg Tab PO 50 mg DAILY [facility] Administration Thiamine HCl 100 mg 11/28/23 09:00 11/30/23 08:35 Thiamine 100 Mg Tab PO 100 mg DAILY LAW Administration Objective - Vital Signs Vital signs: Vital Signs Temp 97.9 F 11/30/23 08:00 Pulse 75 11/30/23 08:00 Resp 18 11/30/23 08:00 BP 119/80 11/30/23 08:00 Pulse Ox 97 11/30/23 08:00 FiO2 Intake & Output 11/29/23 11/30/23 11/30/23 18:59 06:59 18:59 Intake Total 1175 860.310 75 Output Total 750 Balance 425 860.310 75 Weight 74.4 kg Intake: IV 900 750 75 Lactated Ringers 1,000 ml 900 750 75 @ 75 mls/hr IV .[id number] [facility] Rx#:[id number] Intake, IV Titration 275 110.310 Amount Dexmedetomidine/0.9% NaCl 200 110.310 (Pmx) 400 mcg In Empty Bag 1 bag @ 0.2 MCG/KG/HR 3.402 mls/hr IV .Q24H [facility] Rx#:[id number] Lactated Ringers 1,000 ml 75 @ 75 mls/hr IV .[id number] [facility] Rx#:[id number] Output: Urine 750 Other: Voiding Method Diaper Diaper Incontinent Incontinent # Voids 1 0 2 # Bowel Movements 1 2 - Exam -GENERAL: The patient is alert and awake, mildly confused, somewhat calm mildly agitated follows commands, not in any acute distress. Well developed, well nourished. HEENT: Pupils are round and equally reacting to light. EOMI. No scleral icterus. No conjunctival pallor. Normocephalic, atraumatic. No pharyngeal erythema. No thyromegaly. CARDIOVASCULAR: S1 and S2 present. No murmurs, rubs, or gallops. PULMONARY: Chest is clear to auscultation, no wheezing , no crackles. ABDOMEN: Soft, nontender, nondistended, normoactive bowel sounds. No palpable organomegaly. MUSCULOSKELETAL: No joint swelling or deformity. EXTREMITIES: No cyanosis, clubbing, or pedal edema. NEUROLOGICAL: Gross neurological examination did not reveal any focal deficits. SKIN: No rashes. no petechiae. - Labs CBC & Chem 7: 11/30/23 04:34 11/30/23 04:34 Labs: Abnormal Lab Results - Last 24 Hours (Table) 11/29/23 11/30/23 11/30/23 Range/Units 11:00 04:34 04:34 Plt Count 136 L (150-450) k/uL Sodium 135 L (137-145) mmol/L Creatinine 0.48 L (0.52-1.04) mg/dL Glucose 136 H 117 H (74-99) mg/dL POC Glucose (mg/dL) (70-110) mg/dL 11/30/23 Range/Units 06:48 Plt Count (150-450) k/uL Sodium (137-145) mmol/L Creatinine (0.52-1.04) mg/dL Glucose (74-99) mg/dL POC Glucose (mg/dL) 125 H (70-110) mg/dL Assessment and Plan Assessment: -Alcohol intoxication with history of alcohol abuse and acute delirium tremens -Hyperkalemia, improved -Alcohol abuse and withdrawals: Patient will be monitored and continued on Ativan CIWA protocol -Drug abuse, other psychiatric issues -Chronic hepatitis C with mild transaminitis -DVT prophylaxis: on Lovenox for DVT prophylaxis -GI prophylaxis -Full code Plan: Anayeli with CIWA protocol if total hydration Librium is added as well as Haldol when necessary and clonidine Psychiatric team on the case and patient was placed on Suboxone Continue monitoring the ICU Pulmonary/critical care consult Labs and medication were reviewed.. Continue same treatment. Continue with symptomatic treatment. Resume home medication. Monitor labs and vitals. DVT and GI prophylaxis. Further recommendations as per clinical course of the patient DVT prophylaxis: Subcutaneous Lovenox GI Prophylaxis: Ppi Prognosis is guarded
[2023-12-01] MEDS: DEXMEDETOMIDINE/0.9% NACL(PMX) 400 MCG in EMPTY BAG 1 BAG IV SCH ×3 (00:33→11:37)
[2023-12-01] MEDS: LORazepam 2 MG/ML INJ IV PRN ×9 (00:34→22:00)
[2023-12-01 04:24] LABS: Basophils % (A) 0 %; Eosinophils # (A) 0.1 k/uL (0-0.7); Eosinophils % (A) 1 %; HCT 39.1 % (34.0-46.0); HGB 13.5 gm/dL (11.4-16.0); Lymphocytes # (A) 1.3 k/uL (1.0-4.8); Lymphocytes % (A) 19 %; MCH 32.5 pg (25.0-35.0); MCHC 34.6 g/dL (31.0-37.0); MCV 93.9 fL (80.0-100.0); Mean Platelet Volume 9.2; Monocytes # (A) 0.3 k/uL (0-1.0); Monocytes % (A) 4 %; Neutrophils # (A) 5.4 k/uL (1.3-7.7); Neutrophils % (A) 75 %; Platelet Count 137 k/uL (150-450); RBC 4.16 m/uL (3.80-5.40); RDW 12.9 % (11.5-15.5); WBC 7.2 k/uL (3.8-10.6)
[2023-12-01 04:32] LABS: African American GFR (CKD) >90 (>60 ml/min/1.73 sqM); Anion Gap 7 mmol/L; Blood Urea Nitrogen 5 mg/dL (7-17); Calcium 8.9 mg/dL (8.4-10.2); Carbon Dioxide 24 mmol/L (22-30); Chloride 108 mmol/L (98-107); Glucose 112 mg/dL (74-99); Non-African American GFR(CKD) >90 (>60 ml/min/1.73 sqM); Potassium 4.2 mmol/L (3.5-5.1); Sodium 139 mmol/L (137-145)
[2023-12-01] MEDS: LACTATED RINGERS 1,000 ML IV SCH ×2 (06:27→09:00)
[2023-12-01] MEDS: BUPRENORPHINE-NALOX 8-2 MG TAB 1 EACH TAB.SUBL SL SCH ×2 (08:59→20:25)
[2023-12-01] MEDS: ENOXAPARIN 40 MG/0.4 ML SYRINGE SQ SCH (08:59)
[2023-12-01] MEDS: NICOTINE 21MG/24HR PATCH TRANSDERM SCH (08:59)
[2023-12-01] MEDS: MULTIVITAMINS, THERA 1 EACH TAB PO SCH (09:00)
[2023-12-01] MEDS: ONDANSETRON 4 MG/2 ML VIAL IVP PRN (09:00)
[2023-12-01] MEDS: THIAMINE 100 MG TAB PO SCH (09:00)
[2023-12-01] MEDS: PANTOPRAZOLE 40 MG/10 ML VIAL IV SCH (09:00)
[2023-12-01] MEDS: SERTRALINE 50 MG TAB PO SCH (09:00)
[2023-12-01] MEDS: FOLIC ACID 1 MG TAB PO SCH (09:00)
--- NOTE | 2023-12-01 11:44 | P.PN ---
Subjective Progress Note Date: 12/01/23 This is a 33-year-old female patient with a known history of hepatitis C, drug abuse leading heroin, methamphetamines, opiates, prescription drugs, gastric sleeve, alcohol abuse, SVT with previous ablations, chronic and ongoing tobacco dependence, panic disorder. She presented to the emergency room on 04/27/2024 with weakness and tremors altered mental status. She was originally admitted to the regular medical floor. Last evening approximately 10 PM and rapid response team was called as the patient had developed vomiting, thrashing about, see well up to 23. She was up slightly transferred to the intensive care unit and placed on Precedex currently at 1.4 mcg/kg per hour. She received a total of 5 mg of Ativan and 6 mg of Haldol for the past several hours. She is still arousable. Thrashing about in bed at times. manager development in place. Chest x-ray reveals no acute pulmonary process. White count 9.9. Hemoglobin 13.5. Platelets 163. Sodium 136. Potassium 4.0. Bicarb 27. BUN 18. Creatinine 0.61. Glucose 138. Urine drug screen was negative. Viral screen was negative. Serum alcohol level was 340. She is currently maintaining O2 saturations up to 100% on room air. She's been afebrile. Bradycardic. Tachypneic. The patient is seen today 11/30/2023 in follow-up in the intensive care unit. She has remained quite restless and agitated. She completed her 24 hours of Pre cedex. She had been requiring Ativan hourly. She is receiving Haldol 8 mg every 4 hours without much improvement. She remains on Zoloft and Remeron. She has pulled out most of her IVs and cultures. She defecated in the trash can. She is maintaining good O2 saturations in the 90s on room air. White count 7.6. Hemoglobin 12.7. Platelets 136. Sodium 135. Potassium 3.7. Bicarb 22. BUN 13. Creatinine 0.58. Glucose 117. She is on Lovenox for DVT prophylaxis. The patient is seen today 12/01/2023 in follow-up in the intensive care unit. She remained restless and agitated despite multiple medications. She did require going back on Precedex infusion yesterday which is currently at 1.2 mcg/kg per hour. She is continued on Librium, clonidine, Haldol, Ativan Suboxone. NicoDerm patch in place. She is currently resting comfortably in bed. manager development at the bedside. She is maintaining good O2 saturations in the upper 90s on room air. He has been afebrile. Hemodynamically stable. Abdominal x-ray revealed nonspecific bowel gas pattern. White count 7.2. Hemoglobin 13.5. Platelets 137. Sodium 139. Potassium 4.2. Bicarb 24. BUN 5. Creatinine 0.49. Glucose 112. Objective - Vital Signs Vital signs: Vital Signs Temp 97.8 F 12/01/23 08:00 Pulse 58 L 12/01/23 11:00 Resp 15 12/01/23 11:00 BP 119/83 12/01/23 11:00 Pulse Ox 99 12/01/23 11:00 FiO2 Intake & Output 11/30/23 12/01/23 12/01/23 18:59 06:59 18:59 Intake Total 0324.822 0189.095 385.126 Balance 8463.567 3805.095 385.126 Weight 73.2 kg Intake: IV 825 900 300 Lactated Ringers 1,000 ml 825 900 300 @ 75 mls/hr IV .[id number] LAW Rx#:[id number] Intake, IV Titration 59.737 192.095 85.126 Amount Dexmedetomidine/0.9% NaCl 59.737 192.095 85.126 (Pmx) 400 mcg In Empty Bag 1 bag @ 0.2 MCG/KG/HR 3.72 mls/hr IV .Q24H LAW Rx#:[id number] Tube Feeding 400 Other: Voiding Method Diaper Diaper Toilet Incontinent Incontinent Diaper Incontinent # Voids 1 1 1 # Bowel Movements 2 - Exam GENERAL EXAM: Reveals a 33-year-old female patient, resting in bed currently, on room air, in no apparent distress. HEAD: Normocephalic. EYES: Normal reaction of pupils, equal size. NOSE: Clear with pink turbinates. THROAT: No erythema or exudates. NECK: No masses, no JVD. CHEST: No chest wall deformity. LUNGS: Equal air entry with no crackles, wheeze, rhonchi or dullness. CVS: S1 and S2 normal with no audible murmur, regular rhythm. ABDOMEN: No hepatosplenomegaly, normal bowel sounds, no guarding or rigidity. SPINE: No scoliosis or deformity SKIN: No rashes CENTRAL NERVOUS SYSTEM: No focal deficits, tone is normal in all 4 extremities. EXTREMITIES: There is no peripheral edema. No clubbing, no cyanosis. Peripheral pulses are intact. - Labs CBC & Chem 7: 12/01/23 03:46 12/01/23 03:46 Labs: Abnormal Lab Results - Last 24 Hours (Table) 12/01/23 12/01/23 Range/Units 03:46 03:46 Plt Count 137 L (150-450) k/uL Chloride 108 H (98-107) mmol/L BUN 5 L (7-17) mg/dL Creatinine 0.49 L (0.52-1.04) mg/dL Glucose 112 H (74-99) mg/dL Assessment and Plan Assessment: Acute alcohol withdrawal syndrome, presenting alcohol level 340, requiring Precedex infusion History of alcoholism History of alcohol withdrawal seizures History of drug abuse including heroin on a daily basis History of hepatitis C Mild transaminitis Chronic and ongoing tobacco dependence History of homelessness Plan: The patient was seen and evaluated Labs and medications reviewed Currently on a Precedex infusion Continue CIWA protocol Current treatment plan Continue to monitor closely in the intensive care unit Continue safety investigator at the bedside Seizure precautions Being followed by psychiatry as well We will continue to follow I have personally seen and examined the patient, performed the documentation and the assessment and plan as written. Number of minutes spent on the visit: 10.
[2023-12-01] MEDS: HALOPERIDOL LACTATE 5 MG/ML 1 ML VIAL IVP PRN (12:57)
--- NOTE | 2023-12-01 15:15 | P.PN ---
Progress Note - Text Progress Note Date: 12/01/23 Interval History: Patient was seen bedside this afternoon. She appears to be significantly better today and is more oriented. She received Haldol 4 mg once daily and Ativan 2 mg once. She continues to be on Precedex which is likely being discontinued tonight. CIWA and COWS are both improving today. She states that Suboxone has been very helpful and she's been feeling better. She is informed that she will not be discharged on this medication and that it is only to help with the withdrawal phase while she is hospitalized. She was encouraged to find a Suboxone provider because she states that she would like to be on it jail rather than using street drugs. She was informed of methods to contact Suboxone providers. This provider also attempted to discuss rehab and recovery programs the patient was unwilling to participate in the discussion. She states that she does not want to seek any help for substance recovery. She was warned of the risks including potentially if patient continues to use various substances. At this time patient denies any suicidal or homicidal ideations, intent or plan. Patient denies any auditory, visual hallucinations and denies any paranoia or delusions. Patient denies any side effects from the medications and has been compliant with meds. Vital Signs Temp 97.8 F 12/01/23 12:00 Pulse 63 12/01/23 14:00 Resp 20 12/01/23 14:00 BP 114/48 12/01/23 14:00 Pulse Ox 100 12/01/23 14:00 FiO2 Intake & Output 11/30/23 12/01/23 12/01/23 18:59 06:59 18:59 Intake Total 7949.440 8019.095 748.329 Balance 5339.904 3505.095 748.329 Weight 73.2 kg Intake: IV 825 900 600 Lactated Ringers 1,000 ml 825 900 600 @ 75 mls/hr IV .[id number] LAW Rx#:[id number] Intake, IV Titration 59.737 192.095 148.329 Amount Dexmedetomidine/0.9% NaCl 59.737 192.095 148.329 (Pmx) 400 mcg In Empty Bag 1 bag @ 0.2 MCG/KG/HR 3.72 mls/hr IV .Q24H LAW Rx#:[id number] Tube Feeding 400 Other: Voiding Method Diaper Diaper Toilet Incontinent Incontinent Diaper Incontinent # Voids 1 1 1 # Bowel Movements 2 MSE General Appearance: Patient appears to be stated age is alert, pleasant, and cooperative. Patient appears to have better hygiene and grooming wearing hospital gown with fair eye contact. Multiple tattoos, sores on arms and under fingernails. Behavior: Patient is calmly lying in bed without any agitated behavior. Speech: Patient's speech is fluent and nonpressured. Mood/Affect: Patient reports their mood is "better", affect is smiling Suicidality/Homicidality: Patient denies any suicidal or homicidal ideation. Perceptions: Patient denies any visual hallucinations and denies any auditory hallucinations Though content/process: There is no evidence of any delusional thought content and thought process is linear Memory and concentration: AOX3, grossly intact for the purposes of this session. Judgment and insight: chronically Poor IMPRESSIONS: Alcohol use disorder, severe, currently in withdrawal Opioid use disorder, severe, currently in withdrawal- day 4 of withdrawal Mood disorder unspecified Generalized anxiety disorder Hx of Polysubstance abuse including cocaine, benzodiazepines, opiates, and other psychoactive substances PLAN: -Continue your medical management -At this time patient DOES NOT meet criteria for inpatient psychiatric admission. The patient will remain at chronically high risk for harm to self due to her polysubstance abuse. Her primary diagnosis is her substance use disorders. She is not endorsing any suicidal or homicidal ideation, intention, and/or plan at this time. She is not overtly manic or psychotic. -Delirium precautions recommended with patient including - avoiding use of narcotics and SQU[employer]GE[employer] sedatives, limit anticholinergic medications when possible, frequent re-orientation, minimize use of restraints, open window shades during the day and close them at night -Would recommend the following medication changes/additions: Continue Suboxone 4/1 mg BID for opioid withdrawal- RN, please continue to monitor COWS, with last time being tomorrow. Last dose on 12/02/23 AM. Patient is not to be discharged on this medication. CIWA protocol with Ativan prn - per primary team On precedex per primary team Remeron 15mg qsh for anxiety/mood Zoloft 50mg po daily for mood/anxiety -Recommend outpatient Suboxone/Methadone provider. Patient informed of how to schedule -Patient is refusing rehab at this time and SW to offer outpatient peer substance disorder meetings and also outpatient MH follow up information -Psychiatry will sign off -Please call with any questions or concerns
[2023-12-01] MEDS: MIRTAZAPINE 15 MG TAB PO SCH (20:25)
--- NOTE | 2023-12-01 23:35 | P.PN ---
Subjective Patient is a 33-year-old female was brought in here after she was petitioned by her guardian and patient is found to have alcohol intoxication does drink about half a gallon of hard liquor every day. Patient is presently not having any withdrawals with expected to have withdrawals. Patient does have history of IV drug use does have history of hepatitis C with mildly elevated liver enzymes. Patient denied any suicidal or homicidal ideations. Patient is presently homeless. 11/29/2023 Patient is seen in follow-up this morning monitored in the ICU on CIWA protocol and per nursing staff patient was having significant withdrawals overnight and brought to the ICU for closer monitoring. Psychiatry evaluated the patient making recommendations including starting naltrexone although patient was reported to use IV drugs including heroin one day prior to admission and per pharmacy is contraindicated at this time to start this medication. Recommend holding this medication until reevaluation by psychiatry and patient's mentation is improved. Patient is currently sleeping although arousable and becomes extremely agitated and restless and continues to be confused at this time. Patient is not safely able to take medications orally at this state and would highly recommend avoiding oral medications at this time. Patient is afebrile an d there is been no reported shortness of breath or chest pains. Patient continues with the sitter at the bedside 11/30/2023 Patient awake, somewhat confused somewhat agitated, start at bedside. Patient herself denies specific symptoms Labs looks stable, mildly tachypneic She remains on CIWA protocol, Librium, gentle hydration clonidine patch, IV Haldol when necessary Suboxone added today by psychiatrist CBC and BMP are unremarkable Chest x-rays negative Patient had elevated alcohol level CCCXL on admission 12/01/2023 patient remains in the ICU requiring subjective She is sleepy more than yesterday for her height CIWA score will continue on Precedex Also she is on Suboxone by psychiatrist which would be stopped and discharge per recommend by psychiatrist, tomorrow last dose Objective - Vital Signs Vital signs: Vital Signs Temp 97.8 F 12/01/23 12:00 Pulse 59 L 12/01/23 12:00 Resp 24 12/01/23 12:00 BP 130/88 12/01/23 12:00 Pulse Ox 100 12/01/23 12:00 FiO2 Intake & Output 01/13/24 01/14/24 01/14/24 18:59 06:59 18:59 Intake Total 4769.091 9556.095 550.000 Balance 7933.772 0314.095 550.000 Weight 73.2 kg Intake: IV 825 900 450 Lactated Ringers 1,000 ml 825 900 450 @ 75 mls/hr IV .[id number] LAW Rx#:[id number] Intake, IV Titration 59.737 192.095 100.000 Amount Dexmedetomidine/0.9% NaCl 59.737 192.095 100.000 (Pmx) 400 mcg In Empty Bag 1 bag @ 0.2 MCG/KG/HR 3.72 mls/hr IV .Q24H LAW Rx#:[id number] Tube Feeding 400 Other: Voiding Method Diaper Diaper Toilet Incontinent Incontinent Diaper Incontinent # Voids 1 1 1 # Bowel Movements 2 - Exam -GENERAL: The patient is alert and awake, mildly confused, somewhat calm mildly agitated follows commands, not in any acute distress. Well developed, well nourished. HEENT: Pupils are round and equally reacting to light. EOMI. No scleral icterus. No conjunctival pallor. Normocephalic, atraumatic. No pharyngeal erythema. No thyromegaly. CARDIOVASCULAR: S1 and S2 present. No murmurs, rubs, or gallops. PULMONARY: Chest is clear to auscultation, no wheezing , no crackles. ABDOMEN: Soft, nontender, nondistended, normoactive bowel sounds. No palpable organomegaly. MUSCULOSKELETAL: No joint swelling or deformity. EXTREMITIES: No cyanosis, clubbing, or pedal edema. NEUROLOGICAL: Gross neurological examination did not reveal any focal deficits. SKIN: No rashes. no petechiae. - Labs CBC & Chem 7: 12/01/23 03:46 12/01/23 03:46 Labs: Abnormal Lab Results - Last 24 Hours (Table) 12/01/23 12/01/23 Range/Units 03:46 03:46 Plt Count 137 L (150-450) k/uL Chloride 108 H (98-107) mmol/L BUN 5 L (7-17) mg/dL Creatinine 0.49 L (0.52-1.04) mg/dL Glucose 112 H (74-99) mg/dL Assessment and Plan Assessment: -Alcohol intoxication with history of alcohol abuse and acute delirium tremens -Hyperkalemia, improved -Alcohol abuse and withdrawals: Patient will be monitored and continued on Ativan CIWA protocol -Drug abuse, other psychiatric issues -Chronic hepatitis C with mild transaminitis -DVT prophylaxis: on Lovenox for DVT prophylaxis -GI prophylaxis -Full code Plan: Anayeli with CICT protocol if total hydration Librium is added as well as Haldol when necessary and clonidine Psychiatric team on the case and patient was placed on Suboxone Continue monitoring the ICU Pulmonary/critical care consult Labs and medication were reviewed.. Continue same treatment. Continue with symptomatic treatment. Resume home medication. Monitor labs and vitals. DVT and GI prophylaxis. Further recommendations as per clinical course of the patient DVT prophylaxis: Subcutaneous Lovenox GI Prophylaxis: Ppi Prognosis is guarded
[2023-12-02] MEDS: ONDANSETRON 4 MG/2 ML VIAL IVP PRN ×2 (02:15→09:35)
[2023-12-02] MEDS: LORazepam 2 MG/ML INJ IV PRN ×3 (02:15→09:35)
[2023-12-02 04:50] LABS: African American GFR (CKD) >90 (>60 ml/min/1.73 sqM); Anion Gap 8 mmol/L; Blood Urea Nitrogen 8 mg/dL (7-17); Calcium 8.2 mg/dL (8.4-10.2); Carbon Dioxide 23 mmol/L (22-30); Chloride 107 mmol/L (98-107); Glucose 102 mg/dL (74-99); Non-African American GFR(CKD) >90 (>60 ml/min/1.73 sqM); Potassium 3.7 mmol/L (3.5-5.1); Sodium 138 mmol/L (137-145)
[2023-12-02] MEDS ORDERED: POTASSIUM CHLORIDE ER 20 MEQ TAB.ER PO SCH (06:00)
[2023-12-02 06:58] LABS: Glucose,Whole Blood 122 mg/dL (70-110)
--- NOTE | 2023-12-02 08:18 | P.PN ---
Subjective Progress Note Date: 12/02/23 A 33-year-old female patient was currently in the intensive care unit for acute alcohol withdrawal syndrome, delirium tremens. The patient is on Precedex. The patient is known to have alcoholism and previous history of alcoholic seizures in addition to history of IV drug use, hepatitis C and chronic smoking. Patient is homeless. He has undergone previous gastric sleeve procedure. He has previous history of SVTs and has undergone cardiac ablation he has also chronic smoking disorder. The patient was initially admitted to the regular medical floor and because of increased agitation, thrashing, altered mentation and emesis, the patient got transferred to the intensive care unit. The patient is still requiring Precedex drip which is being titrated for level of agitation. The patient is also on a combination of Librium, clonidine, Haldol Ativan and Suboxone. Agitation, thrashing, altered mentation and emesis, the patient got transferred to the intensive care unit. The patient is sleeping Ativan 1 to 2 mg every 1-2 hours on a as needed basis, patient is also on Haldol 4 mg up to 8 mg every 4 hours on an estimated basis, the patient is on Librium 20 mg 4 times daily and Suboxone 8-2 mg half milligram sublingual 3 times daily. Patient is also on nicotine patch. The patient is sleeping Remeron 15 mg at bedtime. Patient is also on Zoloft. He is on Lovenox for DVT prophylaxis. Hemodynamically, the patient is stable and the patient is currently on 2 L of oxygen by nasal cannula. The patient is also on lactated Ringer at 75 cc an hour. Labs were reviewed. On today's evaluation, the labs are still pending in terms of her CBC. Electrolytes are all within normal limits. The patient received a dose of Suboxone yesterday, and as mentioned, this is not going to be a long-term medication for her. At the same time, the patient is off Precedex, she is, comfortable and communicating. She has a sitter at the bedside. She is off Precedex. Objective - Vital Signs Vital signs: Vital Signs Temp 97.7 F 12/02/23 04:00 Pulse 75 12/02/23 07:00 Resp 12 12/02/23 07:00 BP 116/70 12/02/23 07:00 Pulse Ox 95 12/02/23 07:00 FiO2 Intake & Output 12/01/23 12/02/23 12/02/23 18:59 06:59 18:59 Intake Total 1070.277 550 Balance 1070.277 550 Weight 73 kg Intake: IV 900 150 Lactated Ringers 1,000 ml 900 150 @ 75 mls/hr IV .[id number] LAW Rx#:[id number] Intake, IV Titration 170.277 Amount Dexmedetomidine/0.9% NaCl 170.277 (Pmx) 400 mcg In Empty Bag 1 bag @ 0.2 MCG/KG/HR 3.72 mls/hr IV .Q24H LAW Rx#:[id number] Oral 400 Other: Voiding Method Toilet Toilet Diaper Diaper Incontinent Incontinent # Voids 1 0 0 - Exam GENERAL EXAM: Reveals a 33-year-old female patient, resting in bed currently, on room air, in no apparent distress. HEAD: Normocephalic. EYES: Normal reaction of pupils, equal size. NOSE: Clear with pink turbinates. THROAT: No erythema or exudates. NECK: No masses, no JVD. CHEST: No chest wall deformity. LUNGS: Equal air entry with no crackles, wheeze, rhonchi or dullness. CVS: S1 and S2 normal with no audible murmur, regular rhythm. ABDOMEN: No hepatosplenomegaly, normal bowel sounds, no guarding or rigidity. SPINE: No scoliosis or deformity SKIN: No rashes CENTRAL NERVOUS SYSTEM: No focal deficits, tone is normal in all 4 extremities. EXTREMITIES: There is no peripheral edema. No clubbing, no cyanosis. Peripheral pulses are intact. - Labs CBC & Chem 7: 12/01/23 03:46 12/02/23 03:38 Labs: Abnormal Lab Results - Last 24 Hours (Table) 12/02/23 12/02/23 Range/Units 03:38 06:57 Glucose 102 H (74-99) mg/dL POC Glucose (mg/dL) 122 H (70-110) mg/dL Calcium 8.2 L (8.4-10.2) mg/dL Assessment and Plan Plan: Assessment Acute alcohol withdrawal syndrome, presenting alcohol level 340, requiring Precedex infusion, Dose is being titrated for comfort level. The patient is also on a combination of Librium, Haldol, Ativan History of alcoholism History of alcohol withdrawal seizures History of drug abuse including heroin on a daily basis History of hepatitis C Mild transaminitis Chronic and ongoing tobacco dependence History of homelessness Plan: The patient is off Precedex and she is awake and alert and communicating. No signs of any delirium tremens at this point in time. She is on Librium Continue clonidine patches Advance diet Haldol as needed Sitter at the bedside She has chronic issues with carpal tunnel. Was started on low-dose Lyrica 75 mg twice a day. This has had helped her in the past for pain control. Increase mobility Tolerating diet Transfer to [facility].
[2023-12-02 08:39] LABS: Basophils % (A) 1 %; Eosinophils # (A) 0.1 k/uL (0-0.7); Eosinophils % (A) 1 %; HCT 43.2 % (34.0-46.0); HGB 14.3 gm/dL (11.4-16.0); Lymphocytes # (A) 1.2 k/uL (1.0-4.8); Lymphocytes % (A) 24 %; MCH 31.7 pg (25.0-35.0); MCHC 33.1 g/dL (31.0-37.0); MCV 95.9 fL (80.0-100.0); Mean Platelet Volume 9.1; Monocytes # (A) 0.3 k/uL (0-1.0); Monocytes % (A) 7 %; Neutrophils # (A) 3.2 k/uL (1.3-7.7); Neutrophils % (A) 64 %; Platelet Count 116 k/uL (150-450); RBC 4.51 m/uL (3.80-5.40); RDW 13.3 % (11.5-15.5)
[2023-12-02] MEDS ORDERED: PREGABALIN 75 MG CAP PO SCH (09:00)
[2023-12-02] MEDS: PANTOPRAZOLE 40 MG/10 ML VIAL IV SCH (09:35)
[2023-12-02] MEDS: BUPRENORPHINE-NALOX 8-2 MG TAB 1 EACH TAB.SUBL SL SCH (09:46)
[2023-12-02] MEDS: NICOTINE 21MG/24HR PATCH TRANSDERM SCH (09:47)
[2023-12-02] MEDS: THIAMINE 100 MG TAB PO SCH (09:53)
[2023-12-02] MEDS: MULTIVITAMINS, THERA 1 EACH TAB PO SCH (09:53)
[2023-12-02] MEDS: SERTRALINE 50 MG TAB PO SCH (09:53)
[2023-12-02] MEDS: FOLIC ACID 1 MG TAB PO SCH (09:53)
[2023-12-02 11:13] VITALS: BP 114/66; PULSE 109; RESP 19; TEMP 98.5
[2023-12-02] MEDS: ENOXAPARIN 40 MG/0.4 ML SYRINGE SQ SCH (11:17)
--- NOTE | 2023-12-05 11:05 | P.DS ---
Providers Date of admission: 11/27/23 17:01 Attending physician: Paula Hillman Consults: 11/27/23 17:04 Consult Physician Routine Consulting Provider: Dustin Trujillo Consult Reason/Comments: psych Do you want consulting provider notified?: Yes 11/28/23 12:08 Consult Physician Stat Consulting Provider: Psychiatry - [facility] Psychiatry Consult Reason/Comments: EPS Do you want consulting provider notified?: Yes 11/28/23 23:06 Consult Physician Stat Consulting Provider: Drew Deleon Consult Reason/Comments: High CIWA, Active withdrawal Do you want consulting provider notified?: Already Contacted 11/29/23 11:04 Consult Physician Routine Consulting Provider: Casper Hernandez Consult Reason/Comments: reconsult/medications Do you want consulting provider notified?: Already Contacted Primary care physician: Stated None Hospital Course: Please note patient was not discharged but left AGAINST MEDICAL ADVICE Diagnoses: -Alcohol intoxication with history of alcohol abuse and acute delirium tremens -Hyperkalemia, improved -Alcohol abuse and withdrawals: Patient will be monitored and continued on Ativan CIWA protocol -Drug abuse, other psychiatric issues -Chronic hepatitis C with mild transaminitis Hospital course: Patient is a 33-year-old female was brought in here after she was petitioned by her guardian and patient is found to have alcohol intoxication does drink about half a gallon of hard liquor every day. Patient also homeless. She was admitted to the intensive care unit for alcohol intoxication, metabolic encephalopathy and alcohol withdrawal and polysubstance abuse and withdrawal. She was treated with CIWA protocol. She was on multiple sedatives. Her mentation improved and today she was sitting in the chair. Awake oriented to time place person, she has insight into her illness, she follows commands become decayed normally and appropriately and shows understanding of her illness however patient today wanted to leave AMA. Patient has capacity to make medical decision and psychiatrist already has evaluated her and found her does not meet criteria for inpatient psychiatric illness. Patient was followed closely by pulmonary/critical care team. Patient has a legal guardian and has been contacted by the staff and bedside nurse and as per legal guardian patient & AMA papers. Risks of leaving AGAINST MEDICAL ADVICE is explained extensively to the patient including but not limited to the risk of both more severe withdrawal symptoms, substance abuse, addiction, heart attack, organ dysfunction and/or , he verbalized understanding however he refused to stay. She said these risks back to me showing understanding Based upon my evaluation patient has capacity to make medical decision and medical team can not hold her against her will Patient was instructed to follow up with PCP as soon as possible and patient agrees Patient instructed to come back to emergency room, 911 if she changes her mind or she develops symptoms and she agrees as well Physical exam Gen: patient is a AAOx3, no distress CVS: S1-S2, RRR, no murmur Lungs: B/L CTA, no wheezing Abdomen: soft, no distention, no tenderness, positive bowel sounds Extremity: no leg edema or induration Time spent more than 35 minutes Plan - Discharge Summary New Discharge Prescriptions: No Action No Known Home Medications Discharge Medication List No Known Home Medications 09/27/23 [History] Follow up Appointment(s)/Referral(s): None,Stated [Primary Care Provider] - 1-2 days Discharge/Stand Alone Forms: AA Meetings [place], Community Resources, Outpatient Counseling, Inp Substance Abuse Facilities Discharge Disposition: LEFT AGAINST MEDICAL ADVICE
== END 2023-12-02 13:15 | disposition left against medical advice (07) | DRG 770 ==
LOC: EC 14:04 → 3SCARD 17:01 → 6NMEDSUR 11-28 19:38 → 2SICU 11-28 22:19
PROVIDERS: ADMIT Hospitalist; ATTEND Hospitalist
DX: F10.229 Alcohol dependence with intoxication, unspecified (principal); G93.41 Metabolic encephalopathy; F10.231 Alcohol dependence with withdrawal delirium; F11.23 Opioid dependence with withdrawal; B18.2 Chronic viral hepatitis C; F15.11 Other stimulant abuse, in remission; F14.11 Cocaine abuse, in remission; F13.11 Sedative, hypnotic or anxiolytic abuse, in remission; F31.9 Bipolar disorder, unspecified; Z28.310 Unvaccinated for COVID-19; F41.0 Panic disorder [episodic paroxysmal anxiety]; F41.1 Generalized anxiety disorder; Y90.8 Blood alcohol level of 240 mg/100 ml or more; F12.11 Cannabis abuse, in remission; N18.9 Chronic kidney disease, unspecified; M51.36 Other intervertebral disc degeneration, lumbar region; Z91.199 Patient's noncompliance with other medical treatment and regimen due to unspecified reason; R32 Unspecified urinary incontinence; F17.200 Nicotine dependence, unspecified, uncomplicated; Z53.29 Procedure and treatment not carried out because of patient's decision for other reasons; Z98.84 Bariatric surgery status; Z59.01 Sheltered homelessness; Z59.6 Low income; Z88.8 Allergy status to other drugs, medicaments and biological substances
CPT/HCPCS: 36415; 71046; 74018; 80048; 80053; 80306; 80320; 81001; 83605; 83735; 84100; 84702; 85025; 85610; 85730; 87636; 93005; 96361; 96372; 96374; 96375; 96376; 99285

== ENCOUNTER 2024-01-28 09:43 | Observation (INO) | payer OTHER ==
[2024-01-28] MEDS: MORPHINE SULFATE 4 MG/ML SYRINGE IVP STA ×2 (10:08→11:09)
[2024-01-28] MEDS: ONDANSETRON 4 MG/2 ML VIAL IVP STA (10:09)
[2024-01-28] MEDS: LORazepam 2 MG/ML INJ IV STA (10:11)
--- NOTE | 2024-01-28 10:11 | ED ---
Abdominal Pain HPI - General Chief Complaint: Abdominal Pain Stated Complaint: ABD pain Time Seen by Provider: 01/28/24 09:59 Source: patient, police, EMS, RN notes reviewed Mode of arrival: EMS Limitations: no limitations - History of Present Illness Initial Comments: This is a 33-year-old female who presents to the emergency department for abdominal pain. States that this is in the epigastric region under her rib cage on both sides. This started suddenly about an hour prior to arrival. Pain radiates into the back. She has nausea but no vomiting. States that this has happened to her before and it was attributed to her bowels swelling secondary to stage IV kidney disease. However, patient has no hx of renal disease on review of prior lab work since 2018, nor are we able to find what she is referring to as "swollen bowels". Patient is currently an inmate at [facility]. Complaint: abdominal pain - Related Data Home Medications Medication Instructions Recorded Confirmed Loratadine 10 mg PO DAILY 01/28/24 01/28/24 Miconazole/Cleanser 17 On Wipe 1 applicator VAGINAL HS 01/28/24 01/28/24 [Miconazole 3 Kit] clindamycin HCL 300 mg PO TID 01/28/24 01/28/24 Allergies Allergy/AdvReac Type Severity Reaction Status Date / Time trazodone AdvReac dizziness Verified 01/28/24 13:07 Review of Systems ROS Statement: Those systems with pertinent positive or pertinent negative responses have been documented in the HPI. ROS Other: All systems not noted in ROS Statement are negative. Past Medical History Past Medical History: Liver Disease, Renal Disease, Seizure Disorder, Supraventricular Tachycardia (SVT) Additional Past Medical History / Comment(s): SVT with cardiac ablation, lumbar DDD, bulging lumbar disc, ETOH abuse, alcohol withdrawals, pt states she has a seizure disorder and has alcohol withdrawal seizures with last seizure in 2020, drug abuse/pt states IV drug abuse, hepatitis C, lumbar DDD/bulging discs, migraines, sinus problems, past bilateral arm fractures/casted, past broken left ankle and leg/casted, ruptured spleen with surgery. History of Any Multi-Drug Resistant Organisms: ESBL Date of last positivie culture/infection: 01/17/22 MDRO Source:: ESBL URINE Past Surgical History: Bariatric Surgery, Cardiac Ablation, EPS, Orthopedic Surgery Additional Past Surgical History / Comment(s): Cardiac ablation for SVT, gastric sleeve, spleen repair, I&D L wrist. Past Anesthesia/Blood Transfusion Reactions: No Reported Reaction Additional Past Anesthesia/Blood Transfusion Reaction / Comment(s): Pt has clausterphobia. Past Psychological History: Anxiety, Bipolar, Depression, Panic Disorder Smoking Status: Current every day smoker Past Alcohol Use History: Daily Past Drug Use History: Heroin, IV Drug Use, Marijuana, Methamphetamine, Opiates, Prescription Drug Abuse - Past Family History Father History Unknown: Yes Family Medical History: COPD, Diabetes Mellitus Mother History Unknown: Yes Family Medical History: Asthma Additional Family Medical History / Comment(s): pt reports mother had cyclic vomiting issues, substance abuse history Sister(s) Family Medical History: Supraventricular Tachycardia (SVT) Additional Family Medical History / Comment(s): Sister had SVT. She is recently from overdose. General Exam General appearance: alert, in distress Head exam: Present: atraumatic, normocephalic, normal inspection Respiratory exam: Present: normal lung sounds bilaterally. Absent: respiratory distress, wheezes, rales, rhonchi, stridor Cardiovascular Exam: Present: regular rate, normal rhythm, normal heart sounds. Absent: systolic murmur, diastolic murmur, rubs, gallop, clicks GI/Abdominal exam: Present: soft, tenderness (Epigastric), normal bowel sounds. Absent: distended Neurological exam: Present: alert, oriented X3, CN II-XII intact Psychiatric exam: Present: normal affect, normal mood Skin exam: Present: warm, dry, intact, normal color. Absent: rash Course Vital Signs 01/28/24 01/28/24 01/28/24 09:45 09:51 10:00 Temperature 97.9 F Pulse Rate 68 71 Respiratory 20 Rate Blood Pressure 141/113 141/113 O2 Sat by Pulse 99 98 Oximetry 01/28/24 01/28/24 01/28/24 10:30 11:00 18:22 Temperature Pulse Rate 78 66 89 Respiratory 16 20 Rate Blood Pressure 123/86 115/72 126/73 O2 Sat by Pulse 97 96 Oximetry Medical Decision Making - Medical Decision Making This is a 33 year old female who presents to the emergency department for abdominal pain. Was pt. sent in by a medical professional or institution? @ -No Did you speak to anyone other than the patient for history? @ -No Did you review nursing and triage notes? @ -I disagree with the aspect of the ESRD. On review of prior lab work going back to 2018, her kidney function has always been WNL. Were old charts reviewed? @ -Gallbladder US from 05/14/2023 demonstrating cholelithiasis, as well as renal function on lab work going back to 2018, in which renal function has always been within normal limits. Differential Diagnosis? @ -Differential Abdominal Pain Women: Appendicitis, Cholecystitis, diverticulosis, ischemic bowel, pancreatitis, hepatitis, UTI, gastroenteritis, AAA, incarcerated hernia, bowel obstruction, constipation, inflammatory bowel, hepatitis, peptic ulcer disease, splenic infarction, perforated viscus, vulvitis, ovarian torsion, PID, kidney stone, placenta abruption, this is not meant to be an all-inclusive list EKG interpreted by me (3pts min.)? @ -Not obtained X-rays interpreted by me (1pt min.)? @ -Not obtained CT interpreted by me (1pt min.)? @ -Not obtained U/S interpreted by me (1pt. min.)? @ -Gallbladder ultrasound obtained. My interpretation identifies cholelithiasis. What testing was considered but not performed? (CT, X-rays, U/S, labs)? Why? @ -None What meds were considered but not given? Why? @ -None Did you discuss the management of the patient with other professionals? @ -Dr. Ball, general surgery, who advised that symptoms are likely related to biliary colic. He advised keeping the patient NPO and admitting her to medicine. Dr. Sommer accepts the patient for admission to medicine. Did you reconcile home meds? @ -No Was smoking cessation discussed for >3mins.? @ -I discussed smoking cessation for greater than 3 minutes. The risk of smoking were discussed with the patient including but not limited to risks of cancer, stroke, coronary artery disease and COPD. Also discussed with patient were multiple methods of quitting smoking. Lastly we discussed the financial cost of smoking. Was critical care preformed (if so, how long)? @ -No Were there social determinants of health that impacted care today? How? (Homelessness, low income, unemployed, alcoholism, drug addiction, transportation, low edu. Level, literacy, decrease access to med. care, [facility], rehab)? @ -Incarceration, limiting her options with regards to pain management and dietary control, both of which limit her ability to manage the gallstones. Her hx of polysubstance abuse also likely makes her pain more difficult to manage. Was there de-escalation of care discussed even if they declined? (Discuss DNR or withdrawal of care, Hospice)? @ -No What co-morbidities impacted this encounter? (DM, HTN, Smoking, COPD, CAD, Cance r, CVA, Hep., AIDS, mental health diagnosis, sleep apnea, morbid obesity)? @ -Smoking, hx of alcohol abuse, hx of IVDU Was patient admitted / discharged? @ -Admitted. Lab work demonstrates a mild elevation in AST and ALT as well as a mild elevation in amylase and lipase. Gallbladder ultrasound obtained demonstrating mild hepatomegaly and numerous small layering gallstones. There were no findings suggestive of an acute cholecystitis, however bile duct is borderline to mildly dilated. They advised that this could be chronic for the patient, however early biliary obstruction is not excluded. Patient's pain was very difficult to control in the emergency department. She required multiple doses of pain medication in order to control her symptoms. There is also concern with the patient being an inmate, in that her pain control options are very limited, as well as her dietary options, and following a low fat/bland diet would be difficult for her, making symptom recurrence more likely. Given the patient's intractable abdominal pain likely secondary to biliary colic, patient admitted to medicine with general surgery consult. General surgery advised keeping the patient NPO and will evaluate the patient regarding the possibility of a cholecystectomy. Undiagnosed new problem with uncertain prognosis? @ -None Drug Therapy requiring intensive monitoring for toxicity (Heparin, Nitro, Insulin, Cardizem)? @ -None Were any procedures done? @ -None Diagnosis/symptom? @ -Biliary colic, intractable abdominal pain, elevated LFTs Acute, or Chronic, or Acute on Chronic? @ -Acute Uncomplicated (without systemic symptoms) or Complicated (systemic symptoms)? @ -Complicated Side effects of treatment? @ -None Exacerbation, Progression, or Severe Exacerbation] @ -Not applicable Poses a threat to life or bodily function? @ -Yes This case was discussed in detail with the attending ED physician, Dr. Kingston. Presentation, findings, and treatment plan discussed in detail as well. - Lab Data Result diagrams: 01/30/24 05:45 03/13/24 03:29 Lab Results 01/28/24 01/28/24 01/28/24 Range/Units 10:04 10:04 10:04 WBC 9.3 (3.8-10.6) k/uL RBC 4.38 (3.80-5.40) m/uL Hgb 13.8 (11.4-16.0) gm/dL Hct 42.1 (34.0-46.0) % MCV 96.3 (80.0-100.0) fL MCH 31.4 (25.0-35.0) pg MCHC 32.7 (31.0-37.0) g/dL RDW 12.9 (11.5-15.5) % Plt Count 209 (150-450) k/uL MPV 8.8 Neutrophils % 69 % Lymphocytes % 26 % Monocytes % 3 % Eosinophils % 1 % Basophils % 1 % Neutrophils # 6.4 (1.3-7.7) k/uL Lymphocytes # 2.4 (1.0-4.8) k/uL Monocytes # 0.3 (0-1.0) k/uL Eosinophils # 0.1 (0-0.7) k/uL Basophils # 0.1 (0-0.2) k/uL Sodium 140 (137-145) mmol/L Potassium 5.1 (3.5-5.1) mmol/L Chloride 111 H (98-107) mmol/L Carbon Dioxide 21 L (22-30) mmol/L Anion Gap 8 mmol/L BUN 22 H (7-17) mg/dL Creatinine 0.59 (0.52-1.04) mg/dL Est GFR (CKD-EPI)AfAm >90 (>60 ml/min/1.73 sqM) Est GFR (CKD-EPI)NonAf >90 (>60 ml/min/1.73 sqM) Glucose 120 H (74-99) mg/dL Plasma Lactic Acid Wilver (0.7-2.0) mmol/L Calcium 9.1 (8.4-10.2) mg/dL Total Bilirubin 0.7 (0.2-1.3) mg/dL AST 95 H (14-36) U/L ALT 60 H (4-34) U/L Alkaline Phosphatase 62 (38-126) U/L Troponin I (0.000-0.034) ng/mL Total Protein 7.3 (6.3-8.2) g/dL Albumin 4.3 (3.5-5.0) g/dL Amylase 240 H (30-110) U/L Lipase 372 H (23-300) U/L HCG, Qual Not Detected Urine Color Yellow Urine Appearance Cloudy H (Clear) Urine pH 6.5 (5.0-8.0) Ur Specific [place] 1.027 (1.001-1.035) Urine Protein Trace H (Negative) Urine Glucose (UA) Negative (Negative) Urine Ketones Negative (Negative) Urine Blood Negative (Negative) Urine Nitrite Negative (Negative) Urine Bilirubin Negative (Negative) Urine Urobilinogen 4.0 (<2.0) mg/dL Ur Leukocyte Esterase Small H (Negative) Urine RBC 6 H (0-5) /hpf Urine WBC 19 H (0-5) /hpf Ur Squamous Epith Cells 6 H (0-4) /hpf Urine Bacteria Rare H (None) /hpf Hyaline Casts 1 (0-2) /lpf Urine Mucus Few H (None) /hpf Urine Opiates Screen (NotDetected) Ur Oxycodone Screen (NotDetected) Urine Methadone Screen (NotDetected) Ur Barbiturates Screen (NotDetected) U Tricyclic Antidepress (NotDetected) Ur Phencyclidine Scrn (NotDetected) Ur Amphetamines Screen (NotDetected) U Methamphetamines Scrn (NotDetected) U Benzodiazepines Scrn (NotDetected) Urine Cocaine Screen (NotDetected) U Marijuana (THC) Screen (NotDetected) Serum Alcohol <10 mg/dL 01/28/24 01/28/24 01/28/24 Range/Units 10:04 10:04 10:07 WBC (3.8-10.6) k/uL RBC (3.80-5.40) m/uL Hgb (11.4-16.0) gm/dL Hct (34.0-46.0) % MCV (80.0-100.0) fL MCH (25.0-35.0) pg MCHC (31.0-37.0) g/dL RDW (11.5-15.5) % Plt Count (150-450) k/uL MPV Neutrophils % % Lymphocytes % % Monocytes % % Eosinophils % % Basophils % % Neutrophils # (1.3-7.7) k/uL Lymphocytes # (1.0-4.8) k/uL Monocytes # (0-1.0) k/uL Eosinophils # (0-0.7) k/uL Basophils # (0-0.2) k/uL Sodium (137-145) mmol/L Potassium (3.5-5.1) mmol/L Chloride (98-107) mmol/L Carbon Dioxide (22-30) mmol/L Anion Gap mmol/L BUN (7-17) mg/dL Creatinine (0.52-1.04) mg/dL Est GFR (CKD-EPI)AfAm (>60 ml/min/1.73 sqM) Est GFR (CKD-EPI)NonAf (>60 ml/min/1.73 sqM) Glucose (74-99) mg/dL Plasma Lactic Acid Wilver 1.5 (0.7-2.0) mmol/L Calcium (8.4-10.2) mg/dL Total Bilirubin (0.2-1.3) mg/dL AST (14-36) U/L ALT (4-34) U/L Alkaline Phosphatase (38-126) U/L Troponin I <0.012 (0.000-0.034) ng/mL Total Protein (6.3-8.2) g/dL Albumin (3.5-5.0) g/dL Amylase (30-110) U/L Lipase (23-300) U/L HCG, Qual Urine Color Urine Appearance (Clear) Urine pH (5.0-8.0) Ur Specific [place] (1.001-1.035) Urine Protein (Negative) Urine Glucose (UA) (Negative) Urine Ketones (Negative) Urine Blood (Negative) Urine Nitrite (Negative) Urine Bilirubin (Negative) Urine Urobilinogen (<2.0) mg/dL Ur Leukocyte Esterase (Negative) Urine RBC (0-5) /hpf Urine WBC (0-5) /hpf Ur Squamous Epith Cells (0-4) /hpf Urine Bacteria (None) /hpf Hyaline Casts (0-2) /lpf Urine Mucus (None) /hpf Urine Opiates Screen Detected H (NotDetected) Ur Oxycodone Screen Not Detected (NotDetected) Urine Methadone Screen Not Detected (NotDetected) Ur Barbiturates Screen Not Detected (NotDetected) U Tricyclic Antidepress Not Detected (NotDetected) Ur Phencyclidine Scrn Not Detected (NotDetected) Ur Amphetamines Screen Not Detected (NotDetected) U Methamphetamines Scrn Not Detected (NotDetected) U Benzodiazepines Scrn Not Detected (NotDetected) Urine Cocaine Screen Not Detected (NotDetected) U Marijuana (THC) Screen Not Detected (NotDetected) Serum Alcohol mg/dL 01/28/24 01/28/24 Range/Units 12:48 12:48 WBC (3.8-10.6) k/uL RBC (3.80-5.40) m/uL Hgb (11.4-16.0) gm/dL Hct (34.0-46.0) % MCV (80.0-100.0) fL MCH (25.0-35.0) pg MCHC (31.0-37.0) g/dL RDW (11.5-15.5) % Plt Count (150-450) k/uL MPV Neutrophils % % Lymphocytes % % Monocytes % % Eosinophils % % Basophils % % Neutrophils # (1.3-7.7) k/uL Lymphocytes # (1.0-4.8) k/uL Monocytes # (0-1.0) k/uL Eosinophils # (0-0.7) k/uL Basophils # (0-0.2) k/uL Sodium 139 (137-145) mmol/L Potassium 5.4 H (3.5-5.1) mmol/L Chloride 109 H (98-107) mmol/L Carbon Dioxide 23 (22-30) mmol/L Anion Gap 7 mmol/L BUN 22 H (7-17) mg/dL Creatinine 0.54 (0.52-1.04) mg/dL Est GFR (CKD-EPI)AfAm >90 (>60 ml/min/1.73 sqM) Est GFR (CKD-EPI)NonAf >90 (>60 ml/min/1.73 sqM) Glucose 108 H (74-99) mg/dL Plasma Lactic Acid Wilver (0.7-2.0) mmol/L Calcium 9.0 (8.4-10.2) mg/dL Total Bilirubin 0.6 (0.2-1.3) mg/dL AST 245 H (14-36) U/L ALT 118 H (4-34) U/L Alkaline Phosphatase 82 (38-126) U/L Troponin I (0.000-0.034) ng/mL Total Protein 6.7 (6.3-8.2) g/dL Albumin 3.9 (3.5-5.0) g/dL Amylase (30-110) U/L Lipase 293 (23-300) U/L HCG, Qual Urine Color Urine Appearance (Clear) Urine pH (5.0-8.0) Ur Specific [place] (1.001-1.035) Urine Protein (Negative) Urine Glucose (UA) (Negative) Urine Ketones (Negative) Urine Blood (Negative) Urine Nitrite (Negative) Urine Bilirubin (Negative) Urine Urobilinogen (<2.0) mg/dL Ur Leukocyte Esterase (Negative) Urine RBC (0-5) /hpf Urine WBC (0-5) /hpf Ur Squamous Epith Cells (0-4) /hpf Urine Bacteria (None) /hpf Hyaline Casts (0-2) /lpf Urine Mucus (None) /hpf Urine Opiates Screen (NotDetected) Ur Oxycodone Screen (NotDetected) Urine Methadone Screen (NotDetected) Ur Barbiturates Screen (NotDetected) U Tricyclic Antidepress (NotDetected) Ur Phencyclidine Scrn (NotDetected) Ur Amphetamines Screen (NotDetected) U Methamphetamines Scrn (NotDetected) U Benzodiazepines Scrn (NotDetected) Urine Cocaine Screen (NotDetected) U Marijuana (THC) Screen (NotDetected) Serum Alcohol mg/dL - Radiology Data Radiology results: report reviewed, image reviewed Disposition Clinical Impression: Biliary colic, Intractable abdominal pain, Elevated LFTs, Nicotine dependence Disposition: ADMITTED IP TO THIS [facility] Time of Disposition: 12:43
[2024-01-28 10:27] LABS: Basophils # (A) 0.1 k/uL (0-0.2); Basophils % (A) 1 %; Eosinophils # (A) 0.1 k/uL (0-0.7); Eosinophils % (A) 1 %; HCT 42.1 % (34.0-46.0); HGB 13.8 gm/dL (11.4-16.0); Lymphocytes # (A) 2.4 k/uL (1.0-4.8); Lymphocytes % (A) 26 %; MCH 31.4 pg (25.0-35.0); MCHC 32.7 g/dL (31.0-37.0); MCV 96.3 fL (80.0-100.0); Mean Platelet Volume 8.8; Monocytes # (A) 0.3 k/uL (0-1.0); Monocytes % (A) 3 %; Neutrophils # (A) 6.4 k/uL (1.3-7.7); Neutrophils % (A) 69 %; Platelet Count 209 k/uL (150-450); RBC 4.38 m/uL (3.80-5.40); RDW 12.9 % (11.5-15.5); WBC 9.3 k/uL (3.8-10.6)
[2024-01-28 10:37] LABS: HCG,Qualitative Serum Not Detected
[2024-01-28 10:40] LABS: ALT 60 U/L (4-34); African American GFR (CKD) >90 (>60 ml/min/1.73 sqM); Albumin 4.3 g/dL (3.5-5.0); Alcohol <10 mg/dL; Amylase 240 U/L (30-110); Anion Gap 8 mmol/L; Blood Urea Nitrogen 22 mg/dL (7-17); Calcium 9.1 mg/dL (8.4-10.2); Carbon Dioxide 21 mmol/L (22-30); Chloride 111 mmol/L (98-107); Glucose 120 mg/dL (74-99); Lipase 372 U/L (23-300); Non-African American GFR(CKD) >90 (>60 ml/min/1.73 sqM); Sodium 140 mmol/L (137-145); Total Bilirubin 0.7 mg/dL (0.2-1.3); Total Protein 7.3 g/dL (6.3-8.2)
[2024-01-28 10:48] LABS: AST 95 U/L (14-36); Potassium 5.1 mmol/L (3.5-5.1)
[2024-01-28 10:49] LABS: Alkaline Phosphatase 62 U/L (38-126)
[2024-01-28 10:54] LABS: Appearance,Urine Cloudy (Clear); Bacteria,Urine Rare /hpf; Bilirubin,Urine Negative (Negative); Blood,Urine Negative (Negative); Color,Urine Yellow; Glucose,Urine (UA) Negative (Negative); Hyaline Casts,Urine 1 /lpf (0-2); Ketones,Urine Negative (Negative); Leukocyte Esterase,Urine Small (Negative); Mucus,Urine Few /hpf; Nitrite,Urine Negative (Negative); PH, Urine 6.5 (5.0-8.0); Protein,Urine Trace (Negative); RBC,Urine 6 /hpf (0-5); Specific Gravity,Urine 1.027 (1.001-1.035); Squamous Epithelial Cell,Urine 6 /hpf (0-4); WBC,Urine 19 /hpf (0-5)
[2024-01-28 11:09] LABS: Amphetamine Screen,Urine Not Detected (NotDetected); Barbiturate Screen,Urine Not Detected (NotDetected); Benzodiazepines Screen,Urine Not Detected (NotDetected); Cocaine Screen,Urine Not Detected (NotDetected); Methadone Screen, Urine Not Detected (NotDetected); Opiate Screen,Urine Detected (NotDetected); Oxycodone Screen, Urine Not Detected (NotDetected); Phencyclidine Screen,Urine Not Detected (NotDetected); Tricyclic Antidepressant,Urine Not Detected (NotDetected); Urn Cannabinoid Scrn Not Detected (NotDetected)
[2024-01-28] MEDS: KETOROLAC 15 MG/ML 1 ML VIAL IVP STA (11:09)
[2024-01-28] MEDS: FAMOTIDINE 20 MG/2 ML VIAL IV STA (11:09)
--- NOTE | 2024-01-28 11:46 | US ---
EXAMINATION TYPE: US gallbladder DATE OF EXAM: 01/28/2024 COMPARISON: NONE CLINICAL INDICATION: Female, 33 years old with history of Epigastric pain, nausea and vomiting TECHNIQUE: Multiple sonographic images of the right upper quadrant are obtained. FINDINGS: EXAM MEASUREMENTS: Liver Length: 19.0 cm Gallbladder Wall: 0.3 cm CBD: 0.7 cm Right Kidney: 11.3 x 4.2 x 4.7 cm Pancreas: visualized portions appear wnl Liver: slightly enlarged with diffuse increased echogenicity. Gallbladder: Multiple layering and shadowing stones. Abnormal gallbladder distention, wall thickenin g, or surrounding fluid. Evidence for sonographic Gavin's sign: no CBD: Borderline to mildly dilated. Right Kidney: lower pole obscured by overlying bowel gas IMPRESSION: 1. Mild hepatomegaly at 19.0 cm with moderate hepatic steatosis. Appropriate clinical management is a dvised. 2. Numerous small layering gallstones. No ancillary imaging findings of acute cholecystitis. 3. However, the bile duct is borderline to mildly dilated up to 7 mm. This may be chronic for the pat ient. Correlate with alkaline phosphatase and bilirubin levels to exclude early biliary obstruction.
[2024-01-28] MEDS ORDERED: NALOXONE 0.4 MG/ML 1 ML VIAL IV PRN (12:44)
[2024-01-28] MEDS ORDERED: MORPHINE SULFATE 2 MG/ML SYRINGE IVP PRN (12:45)
[2024-01-28] MEDS: HYDROmorphone 1 MG/ML 1 ML SYRINGE IVP STA (12:52)
[2024-01-28 13:13] LABS: ALT 118 U/L (4-34); AST 245 U/L (14-36); African American GFR (CKD) >90 (>60 ml/min/1.73 sqM); Albumin 3.9 g/dL (3.5-5.0); Alkaline Phosphatase 82 U/L (38-126); Anion Gap 7 mmol/L; Blood Urea Nitrogen 22 mg/dL (7-17); Carbon Dioxide 23 mmol/L (22-30); Chloride 109 mmol/L (98-107); Glucose 108 mg/dL (74-99); Non-African American GFR(CKD) >90 (>60 ml/min/1.73 sqM); Potassium 5.4 mmol/L (3.5-5.1); Sodium 139 mmol/L (137-145); Total Bilirubin 0.6 mg/dL (0.2-1.3); Total Protein 6.7 g/dL (6.3-8.2)
[2024-01-28] MEDS: SODIUM CHLORIDE 0.9% 1,000 ML IV STA (13:30)
[2024-01-28] MEDS: SODIUM CHLORIDE 0.9% 1,000 ML IV SCH (13:30)
--- NOTE | 2024-01-28 15:26 | P.GSCN ---
History of Present Illness Consult date: 01/28/24 History of present illness: CHIEF COMPLAINT: Abdominal pain HISTORY OF PRESENT ILLNESS: This is a 33-year-old female who is currently an inmate at [facility]. She reports that she started having abdominal pain across the upper abdomen early this morning. She does report that the pain did start a couple hours after eating. She reports having nausea vomiting and diarrhea. Patient reports this pain is similar to the pain that has brought her in to the hospital previously. She does have a known history of gallstones. She also has a history of IV drug use, alcohol use and hepatitis C. Past surgical history does include sleeve gastrectomy. Patient reports that her pain was so severe that the did cause her to have shortness of breath. Denies any chest pain. PAST MEDICAL HISTORY: Liver disease, Seizure Disorder, Supraventricular Tachycardia (SVT)SVT with cardiac ablation, lumbar DDD, bulging lumbar disc, ETOH abuse, alcohol withdrawals, pt states she has a seizure disorder and has alcohol withdrawal seizures with last seizure in 2020, drug abuse/pt states IV drug abuse, hepatitis C, lumbar DDD/bulging discs, migraines, sinus problems, past bilateral arm fractures/casted, past broken left ankle and leg/casted, ruptured spleen with surgery. Anxiety, bipolar, depression, panic disorder PAST SURGICAL HISTORY: Gastric sleeve, cardiac ablation for SVT, spleen repair MEDICATIONS: See below ALLERGIES: See below SOCIAL HISTORY: Heroin, IV Drug Use, Marijuana, Methamphetamine, Opiates, Prescription Drug Abuse, daily alcohol use REVIEW OF SYSTEMS: CONSTITUTIONAL: Denies fever or chills. HEENT: Denies blurred vision, vision changes, or eye pain. Denies hemoptysis CARDIOVASCULAR: Denies chest pain or pressure. RESPIRATORY: No shortness of breath. GASTROINTESTINAL: See HPI for pertinent findings HEMATOLOGIC: Denies bleeding disorders. GENITOURINARY: Denies any blood in urine or increased urinary frequency. SKIN: Denies pruitis. Denies rash. PHYSICAL EXAM: VITAL SIGNS: Reviewed GENERAL: Well-developed in no acute distress. HEENT: No sclera icterus. Extraocular movements grossly intact. Moist buccal mucosa. Head is atraumatic, normocephalic. No nasal drainage. ABDOMEN: Soft. Nondistended. Diffuse tenderness but increased tenderness to palpation right upper quadrant and epigastric area NEUROLOGIC: Alert and oriented. Cranial nerves II through XII grossly intact. LABORATORY DATA: WBC 9.3 Hgb 13.8 platelets 209 Sodium is 139 potassium is 5.4 creatinine 0.54 Lactic acid 1.5 Total bilirubin 0.6 AST is up from 95-2 45 ALT 60-1 18 alk phos 82 Lipase 372 down to 293 hCG not detected Drug screen positive for opiates Alcohol level less than 10 IMAGING: Gallbladder ultrasound reports mild hepatomegaly at 19 cm with moderate hepatic steatosis. Numerous small layering gallstones. No ancillary imaging findings for acute cholecystitis. However bile duct is borderline to mildly dilated at 7 mm. This may be chronic for the patient. Correlate with alk phos and bilirubin levels to exclude early biliary obstruction. ASSESSMENT: 1. Right upper quadrant and epigastric abdominal pain 2. Cholelithiasis 3. Elevated liver enzymes 4. Hepatomegaly 5. Daily alcohol use 6. Hepatitis C history 7. History of IV drug use 8. Hyperkalemia PLAN: -Patient scheduled for laparoscopic cholecystectomy tomorrow with Dr. Ball -Clear liquid diet today -N.p.o. after midnight -Continue IV fluids -Continue supportive care -Medicine service to correct hyperkalemia -Repeat labs in a.m. 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 Signing provider agrees with the documented findings, assessment, and plan of care. Past Medical History Past Medical History: Liver Disease, Renal Disease, Seizure Disorder, Supraventricular Tachycardia (SVT) Additional Past Medical History / Comment(s): SVT with cardiac ablation, lumbar DDD, bulging lumbar disc, ETOH abuse, alcohol withdrawals, pt states she has a seizure disorder and has alcohol withdrawal seizures with last seizure in 2020, drug abuse/pt states IV drug abuse, hepatitis C, lumbar DDD/bulging discs, migraines, sinus problems, past bilateral arm fractures/casted, past broken left ankle and leg/casted, ruptured spleen with surgery. History of Any Multi-Drug Resistant Organisms: ESBL Year Discovered:: 01/17/22 MDRO Source:: ESBL URINE Past Surgical History: Bariatric Surgery, Cardiac Ablation, EPS, Orthopedic Surgery Additional Past Surgical History / Comment(s): Cardiac ablation for SVT, gastric sleeve, spleen repair, I&D L wrist. Past Anesthesia/Blood Transfusion Reactions: No Reported Reaction Additional Past Anesthesia/Blood Transfusion Reaction / Comm: Pt has clausterphobia. Past Psychological History: Anxiety, Bipolar, Depression, Panic Disorder Smoking Status: Current every day smoker Past Alcohol Use History: Daily Past Drug Use History: Heroin, IV Drug Use, Marijuana, Methamphetamine, Opiates, Prescription Drug Abuse - Past Family History Father History Unknown: Yes Family Medical History: COPD, Diabetes Mellitus Mother History Unknown: Yes Family Medical History: Asthma Additional Family Medical History / Comment(s): pt reports mother had cyclic vomiting issues, substance abuse history Sister(s) Family Medical History: Supraventricular Tachycardia (SVT) Additional Family Medical History / Comment(s): Sister had SVT. She is recently from overdose. Medications and Allergies Home Medications Medication Instructions Recorded Confirmed Type Loratadine 10 mg PO DAILY 01/28/24 01/28/24 History Miconazole/Cleanser 17 On Wipe 1 applicator VAGINAL HS 01/28/24 01/28/24 History [Miconazole 3 Kit] clindamycin HCL 300 mg PO TID 01/28/24 01/28/24 History Allergies Allergy/AdvReac Type Severity Reaction Status Date / Time trazodone AdvReac dizziness Verified 01/28/24 13:07 Surgical - Exam Vital Signs Temp Pulse Resp BP Pulse Ox 97.9 F 68 20 141/113 99 01/28/24 09:45 01/28/24 09:45 01/28/24 09:45 01/28/24 09:45 01/28/24 09:45 Results - Labs 01/28/24 10:04 01/28/24 12:48 Abnormal Lab Results - Last 24 Hours (Table) 01/28/24 01/28/24 01/28/24 Range/Units 10:04 10:04 10:04 Potassium (3.5-5.1) mmol/L Chloride 111 H (98-107) mmol/L Carbon Dioxide 21 L (22-30) mmol/L BUN 22 H (7-17) mg/dL Glucose 120 H (74-99) mg/dL AST 95 H (14-36) U/L ALT 60 H (4-34) U/L Amylase 240 H (30-110) U/L Lipase 372 H (23-300) U/L Urine Appearance Cloudy H (Clear) Urine Protein Trace H (Negative) Ur Leukocyte Esterase Small H (Negative) Urine RBC 6 H (0-5) /hpf Urine WBC 19 H (0-5) /hpf Ur Squamous Epith Cells 6 H (0-4) /hpf Urine Bacteria Rare H (None) /hpf Urine Mucus Few H (None) /hpf Urine Opiates Screen Detected H (NotDetected) 01/28/24 Range/Units 12:48 Potassium 5.4 H (3.5-5.1) mmol/L Chloride 109 H (98-107) mmol/L Carbon Dioxide (22-30) mmol/L BUN 22 H (7-17) mg/dL Glucose 108 H (74-99) mg/dL AST 245 H (14-36) U/L ALT 118 H (4-34) U/L Amylase (30-110) U/L Lipase (23-300) U/L Urine Appearance (Clear) Urine Protein (Negative) Ur Leukocyte Esterase (Negative) Urine RBC (0-5) /hpf Urine WBC (0-5) /hpf Ur Squamous Epith Cells (0-4) /hpf Urine Bacteria (None) /hpf Urine Mucus (None) /hpf Urine Opiates Screen (NotDetected) Diabetes panel 01/28/24 01/28/24 Range/Units 10:04 12:48 Sodium 140 139 (137-145) mmol/L Potassium 5.1 5.4 H (3.5-5.1) mmol/L Chloride 111 H 109 H (98-107) mmol/L Carbon Dioxide 21 L 23 (22-30) mmol/L BUN 22 H 22 H (7-17) mg/dL Creatinine 0.59 0.54 (0.52-1.04) mg/dL Glucose 120 H 108 H (74-99) mg/dL Calcium 9.1 9.0 (8.4-10.2) mg/dL AST 95 H 245 H (14-36) U/L ALT 60 H 118 H (4-34) U/L Alkaline Phosphatase 62 82 (38-126) U/L Total Protein 7.3 6.7 (6.3-8.2) g/dL Albumin 4.3 3.9 (3.5-5.0) g/dL Calcium panel 01/28/24 01/28/24 Range/Units 10:04 12:48 Calcium 9.1 9.0 (8.4-10.2) mg/dL Albumin 4.3 3.9 (3.5-5.0) g/dL Pituitary panel 01/28/24 01/28/24 Range/Units 10:04 12:48 Sodium 140 139 (137-145) mmol/L Potassium 5.1 5.4 H (3.5-5.1) mmol/L Chloride 111 H 109 H (98-107) mmol/L Carbon Dioxide 21 L 23 (22-30) mmol/L BUN 22 H 22 H (7-17) mg/dL Creatinine 0.59 0.54 (0.52-1.04) mg/dL Glucose 120 H 108 H (74-99) mg/dL Calcium 9.1 9.0 (8.4-10.2) mg/dL Adrenal panel 01/28/24 01/28/24 Range/Units 10:04 12:48 Sodium 140 139 (137-145) mmol/L Potassium 5.1 5.4 H (3.5-5.1) mmol/L Chloride 111 H 109 H (98-107) mmol/L Carbon Dioxide 21 L 23 (22-30) mmol/L BUN 22 H 22 H (7-17) mg/dL Creatinine 0.59 0.54 (0.52-1.04) mg/dL Glucose 120 H 108 H (74-99) mg/dL Calcium 9.1 9.0 (8.4-10.2) mg/dL Total Bilirubin 0.7 0.6 (0.2-1.3) mg/dL AST 95 H 245 H (14-36) U/L ALT 60 H 118 H (4-34) U/L Alkaline Phosphatase 62 82 (38-126) U/L Total Protein 7.3 6.7 (6.3-8.2) g/dL Albumin 4.3 3.9 (3.5-5.0) g/dL
[2024-01-28] MEDS: SODIUM ZIRCONIUM CYCLOSILICATE 10 GM PACKET PO ONE (15:49)
[2024-01-28] MEDS: MORPHINE SULFATE 4 MG/ML SYRINGE IV PRN (16:25)
[2024-01-28] MEDS: ACETAMINOPHEN TAB 325 MG TAB PO PRN (18:58)
[2024-01-28] MEDS: HEPARIN SODIUM,PORCINE 5,000 UNIT/ML 1 ML VIAL SQ SCH (21:00)
[2024-01-28] MEDS: PANTOPRAZOLE 40 MG/10 ML VIAL IVP SCH (21:01)
--- NOTE | 2024-01-28 22:06 | P.HPIM ---
History of Present Illness H&P Date: 01/28/24 Chief Complaint: Abdominal pain Patient is a 33-year-old female with a past medical history of heroin IV drug use, polysubstance use, SVT status post ablation, seizure disorder, lumbar disc degenerative disease, alcohol abuse, hepatitis C, migraine headaches and history of ruptured spleen with surgery and also history of sleeve gastrectomy. Patient presents to ER with complaints of nausea and diarrhea and abdominal pain x 1 week. Patient states that she has been having abdominal pain mainly in the epigastric and right upper quadrant region associate with severe nausea. States that she has been on antibiotics for the past 2 weeks. Initially was treated for tooth infection and followed by yeast infection for which she is on different antibiotic for the past 1 week and today is her last dose. Patient states that she woke up with pain this morning. Denies any fever or chills. No chest pain or shortness of breath. No cough or sputum production. No leg swelling. Gallbladder ultrasound showed mild hepatomegaly at 19 cm with moderate hepatic steatosis. Numerous small layering gallstones. No ancillary imaging findings of acute cholecystitis. However bile duct is borderline to mildly dilated up to 7 mm. This may be chronic for the patient. Correlate with alk phos and bilirubin levels. Laboratory data showed sodium 140 potassium 5.1 chloride 111 bicarb is 21, BUN 22 and creatinine 0.59 Total bili 0.7, AST 95, ALT 16 alk phos 62. Troponin x 1 negative Lipase 372, amylase 240 Urinalysis showed cloudy with trace protein and small leukocyte esterase with 6 RBCs and 19 WBCs and 6 squamous epithelial cells. UDS is positive for opiates. Review of Systems Constitutional: Patient denies any fever or chills . No generalized weakness or weight loss. Abdomen: Patient complains of nausea and episodes of vomiting and epigastric abdominal pain. Positive for diarrhea Cardiovascular: Patient denies any chest pain or short of breath no palpitations. Respiratory: patient denied any cough is from production. No shortness of breath Neurologic: Patient denied any numbness or tingling headache. Musculoskeletal: Patient denies any complaints of joint swelling or deformity. Skin: Negative Psychiatric: Negative Endocrine: No heat or cold intolerance. No recent weight gain. Genitourinary: No dysuria or hematuria. All other 14 point ROS negative except the above Past Medical History Past Medical History: Liver Disease, Renal Disease, Seizure Disorder, Supraventricular Tachycardia (SVT) Additional Past Medical History / Comment(s): SVT with cardiac ablation, lumbar DDD, bulging lumbar disc, ETOH abuse, alcohol withdrawals, pt states she has a seizure disorder and has alcohol withdrawal seizures with last seizure in 2020, drug abuse/pt states IV drug abuse, hepatitis C, lumbar DDD/bulging discs, migraines, sinus problems, past bilateral arm fractures/casted, past broken left ankle and leg/casted, ruptured spleen with surgery. History of Any Multi-Drug Resistant Organisms: ESBL Date of last positivie culture/infection: 01/17/22 MDRO Source:: ESBL URINE Past Surgical History: Bariatric Surgery, Cardiac Ablation, EPS, Orthopedic Surgery Additional Past Surgical History / Comment(s): Cardiac ablation for SVT, gastric sleeve, spleen repair, I&D L wrist. Past Anesthesia/Blood Transfusion Reactions: No Reported Reaction Additional Past Anesthesia/Blood Transfusion Reaction / Comment(s): Pt has clausterphobia. Past Psychological History: Anxiety, Bipolar, Depression, Panic Disorder Smoking Status: Current every day smoker Past Alcohol Use History: Daily Past Drug Use History: Heroin, IV Drug Use, Marijuana, Methamphetamine, Opiates, Prescription Drug Abuse - Past Family History Father History Unknown: Yes Family Medical History: COPD, Diabetes Mellitus Mother History Unknown: Yes Family Medical History: Asthma Additional Family Medical History / Comment(s): pt reports mother had cyclic vomiting issues, substance abuse history Sister(s) Family Medical History: Supraventricular Tachycardia (SVT) Additional Family Medical History / Comment(s): Sister had SVT. She is recently from overdose. Medications and Allergies Home Medications Medication Instructions Recorded Confirmed Type Loratadine 10 mg PO DAILY 01/28/24 01/28/24 History Miconazole/Cleanser 17 On Wipe 1 applicator VAGINAL HS 01/28/24 01/28/24 History [Miconazole 3 Kit] clindamycin HCL 300 mg PO TID 01/28/24 01/28/24 History Allergies Allergy/AdvReac Type Severity Reaction Status Date / Time trazodone AdvReac dizziness Verified 01/28/24 13:07 Physical Exam Vitals: Vital Signs Temp Pulse Resp BP Pulse Ox 01/28/24 11:00 66 16 115/72 97 01/28/24 10:30 78 123/86 01/28/24 10:00 71 141/113 01/28/24 09:51 98 01/28/24 09:45 97.9 F 68 20 141/113 99 Intake and Output 01/27/24 01/28/24 01/28/24 22:59 06:59 14:59 Other: Weight 68.039 kg PHYSICAL EXAMINATION: Patient is lying in the bed comfortably, no acute distress, awake alert and oriented.. HEENT: Normocephalic. Neck is supple. Pupils reactive. Nostrils clear. Oral cavity is moist. Neck reveals no JVD, carotid bruits, or thyromegaly. CHEST EXAMINATION: Trachea is central. Symmetrical expansion. Lung gonzalez clear to auscultation and percussion. CARDIAC: Normal S1, S2 with no gallops. No murmurs ABDOMEN: Soft. Bowel sounds normal. Mild epigastric and right upper quadrant tenderness. No guarding or rigidity. No organomegaly. No abdominal bruits. Extremities: reveal no edema. No clubbing or cyanosis Neurologically awake, alert, oriented x3 with well-coordinated movements. No focal deficits noted Skin: No rash or skin lesions. Psychiatric: Coperative. Nonsuicidal., Anxious. Musculoskeletal: No joint swelling or deformity. Normal range of motion. Results CBC & Chem 7: 01/28/24 10:04 01/28/24 12:48 Labs: Abnormal Lab Results - Last 24 Hours (Table) 01/28/24 01/28/24 01/28/24 Range/Units 10:04 10:04 10:04 Potassium (3.5-5.1) mmol/L Chloride 111 H (98-107) mmol/L Carbon Dioxide 21 L (22-30) mmol/L BUN 22 H (7-17) mg/dL Glucose 120 H (74-99) mg/dL AST 95 H (14-36) U/L ALT 60 H (4-34) U/L Amylase 240 H (30-110) U/L Lipase 372 H (23-300) U/L Urine Appearance Cloudy H (Clear) Urine Protein Trace H (Negative) Ur Leukocyte Esterase Small H (Negative) Urine RBC 6 H (0-5) /hpf Urine WBC 19 H (0-5) /hpf Ur Squamous Epith Cells 6 H (0-4) /hpf Urine Bacteria Rare H (None) /hpf Urine Mucus Few H (None) /hpf Urine Opiates Screen Detected H (NotDetected) 01/28/24 Range/Units 12:48 Potassium 5.4 H (3.5-5.1) mmol/L Chloride 109 H (98-107) mmol/L Carbon Dioxide (22-30) mmol/L BUN 22 H (7-17) mg/dL Glucose 108 H (74-99) mg/dL AST 245 H (14-36) U/L ALT 118 H (4-34) U/L Amylase (30-110) U/L Lipase (23-300) U/L Urine Appearance (Clear) Urine Protein (Negative) Ur Leukocyte Esterase (Negative) Urine RBC (0-5) /hpf Urine WBC (0-5) /hpf Ur Squamous Epith Cells (0-4) /hpf Urine Bacteria (None) /hpf Urine Mucus (None) /hpf Urine Opiates Screen (NotDetected) Thrombosis Risk Factor Assmnt - DVT/VTE Prophylaxis DVT/VTE Prophylaxis: Pharmacologic Prophylaxis ordered Assessment and Plan Assessment: Intractable nausea and epigastric and right upper quadrant abdominal pain Numerous small layering gallstones Mildly dilated bile duct up to 7 mm Nausea and diarrhea with recent antibiotic use with clindamycin Elevated liver enzymes Mild pancreatitis with lipase level 372 Hepatomegaly with moderate hepatic steatosis Severe alcohol abuse History of IVDU Hepatitis C with no prior history of treatment Mild hypokalemia Prior history of SVT status post ablation Prior history of gastric sleeve surgery Lumbar disc degenerative disease/bulging disc History of migraine headaches and sinus problems Prior history of ESBL UTI Anxiety/depression/bipolar disorder and panic disorder Currently everyday smoker DVT prophylaxis with heparin subcu Plan: Patient will be continued on IV hydration. Continue symptomatic management for nausea and started on PPI IV twice daily along with pain management with morphine. Stool for C. difficile ordered due to diarrhea and recent antibiotic use. General surgery was consulted for evaluation of right upper quadrant pain. Follow-up closely. Time with Patient: Greater than 30
[2024-01-28] MEDS: ZOLPIDEM 5 MG TAB PO PRN (22:59)
[2024-01-29 04:01] LABS: Basophils % (A) 1 %; Eosinophils % (A) 1 %; HCT 31.7 % (34.0-46.0); Lymphocytes # (A) 1.9 k/uL (1.0-4.8); Lymphocytes % (A) 44 %; MCHC 34.6 g/dL (31.0-37.0); MCV 95.5 fL (80.0-100.0); Mean Platelet Volume 8.4; Monocytes # (A) 0.2 k/uL (0-1.0); Monocytes % (A) 4 %; Neutrophils # (A) 2.1 k/uL (1.3-7.7); Neutrophils % (A) 48 %; Platelet Count 164 k/uL (150-450); RBC 3.32 m/uL (3.80-5.40); RDW 13.1 % (11.5-15.5); WBC 4.3 k/uL (3.8-10.6)
[2024-01-29] MEDS: THIAMINE 100 MG TAB PO SCH (08:46)
[2024-01-29 11:44] VITALS: BMI 25.0
[2024-01-29 12:17] LABS: ALT 75 U/L (4-34); AST 56 U/L (14-36); African American GFR (CKD) >90 (>60 ml/min/1.73 sqM); Albumin 2.7 g/dL (3.5-5.0); Alkaline Phosphatase 60 U/L (38-126); Anion Gap 3 mmol/L; Blood Urea Nitrogen 11 mg/dL (7-17); Carbon Dioxide 21 mmol/L (22-30); Chloride 112 mmol/L (98-107); Glucose 77 mg/dL (74-99); Non-African American GFR(CKD) >90 (>60 ml/min/1.73 sqM); Potassium 4.3 mmol/L (3.5-5.1); Sodium 136 mmol/L (137-145); Total Bilirubin 0.4 mg/dL (0.2-1.3); Total Protein 5.2 g/dL (6.3-8.2)
[2024-01-29] MEDS ORDERED: MIRTAZAPINE 15 MG TAB PO PRN (14:58)
--- NOTE | 2024-01-29 15:02 | P.CN ---
Psychiatric Consult - . Consult date: 01/29/24 Consult:: 01/29/24 14:28 IDENTIFYING DATA: This patient is a 33-year-old female significant history of polysubstance abuse presents to the hospital from the long term for stomach pain. HISTORY OF PRESENT ILLNESS: The patient presented to the hospital on 01/27/24, presenting to the emergency department from the long term for stomach pain. Patient needs to have her gallbladder removed tomorrow. Patient has been in long term for a few weeks for breaking and entering. Patient is currently homeless states that she has severe anxiety, due to it being the anniversary since her sister has passed 3 years ago. Patient states generally she would self medicate, but due to being incarcerated she cannot do that. Patient is not having any withdrawal symptoms. Patient was fairly pleasant with card writer hand, directable during questioning, appears to be fairly future oriented and mainly focused on her upcoming surgery. Sitter can be discontinued at this time, since there is an officer at patient's bedside. Patient denying any suicidal or homicidal ideat ions intent or plan. Denying any auditory or visual hallucinations. She is denying any other current recreational drug use except for alcohol at this time. PAST PSYCHIATRIC HISTORY: The patient has a history of depression, anxiety, and polysubstance abuse including methamphetamine use disorder, opiate use disorder, and other psychoactive substance use disorders. Patient was last admitted onto our psychiatric unit in February 2022 and was discharged on a regimen of Lexapro, Neurontin, Seroquel, and prazosin. The patient has had at least 10 psychiatric inpatient admissions since 2016. Patient is nonadherent with any and all outpatient follow-up. PAST MEDICAL HISTORY: As per ED note ALLERGIES: Trazodone CHEMICAL DEPENDENCY HISTORY: Patient is actively using alcohol, methamphetamines, opiates, cocaine, marijuana, and also has a history of "huffing paint." FAMILY PSYCHIATRIC/SUBSTANCE USE HISTORY: Patient's sister reportedly by overdose. The patient's father abused cocaine. The patient's mother also is reportedly and abused multiple substances as well. SOCIAL HISTORY: Patient was born and raised in [place]. She completed high school. Currently unemployed, is homeless MENTAL STATUS EXAM: General Appearance: Patient appears to be stated age is alert, pleasant, and cooperative. Patient appears to have very disheveled hygiene and grooming wearing hospital gown with fair eye contact. Mulitple tattoos Behavior: Patient is calmly lying in bed without any agitated behavior. Directable, pleasant. Speech: Patient's speech is fluent and nonpressured. Mood/Affect: Patient reports their mood is "anxious", affect is fair Suicidality/Homicidality: Patient denies any suicidal or homicidal ideation. Perceptions: Patient denies any visual hallucinations and denies any auditory hallucinations Though content/process: There is no evidence of any delusional thought content and thought process is linear. Focused on medications and her upcoming surgery Memory and concentration: AOX3, grossly intact for the purposes of this session. Can spell "WORLD" backwards Judgment and insight: chronically Poor IMPRESSIONS: bipolar disorder NOS Generalized anxiety disorder Hx of Polysubstance abuse including cocaine, benzodiazepines, opiates, and other psychoactive substances PLAN: -Continue your medical management -At this time patient DOES NOT meet criteria for inpatient psychiatric admission. The patient will remain at chronically high risk for harm to self due to her polysubstance abuse. Her primary diagnosis is her substance use disorders. She is not endorsing any suicidal or homicidal ideation, intention, and/or plan at this time. She is not overtly manic or psychotic. -Would recommend the following medication changes/additions: Remeron 15mg qhs prn for anxiety/mood Zofolt 50mg po daily for mood/anxiety depakote 500mg qhs for mood stabilization, prazosin 1 mg qhs for nightmares -patient is refusing rehab at this time and SW to offer outpatient AA meetings and also outpatient follow up information. Patient can follow-up with [facility] once she is released from long term. -Patient does not require one-to-one sitter, as there is an officer at the bedside -Psychiatry will sign off at this time. If there are any acute changes or concerns please call us. 01/29/24 14:59
[2024-01-29] MEDS: MULTIVITAMINS, THERA 1 EACH TAB PO SCH (16:08)
[2024-01-29] MEDS: SERTRALINE 50 MG TAB PO SCH (16:08)
[2024-01-29] MEDS: DIVALPROEX ER 500 MG TAB.ER.24H PO SCH (20:50)
[2024-01-29] MEDS: PRAZOSIN 1 MG CAP PO SCH (20:50)
[2024-01-29] MEDS: ZOLPIDEM 5 MG TAB PO PRN (21:19)
--- NOTE | 2024-01-30 04:31 | P.PN ---
Subjective Progress Note Date: 01/29/24 Patient is a 33-year-old female with a past medical history of heroin IV drug use, polysubstance use, SVT status post ablation, seizure disorder, lumbar disc degenerative disease, alcohol abuse, hepatitis C, migraine headaches and history of ruptured spleen with surgery and also history of sleeve gastrectomy. Patient presents to ER with complaints of nausea and diarrhea and abdominal pain x 1 week. Patient states that she has been having abdominal pain mainly in the epigastric and right upper quadrant region associate with severe nausea. States that she has been on antibiotics for the past 2 weeks. Initially was treated for tooth infection and followed by yeast infection for which she is on different antibiotic for the past 1 week and today is her last dose. Patient states that she woke up with pain this morning. Denies any fever or chills. No chest pain or shortness of breath. No cough or sputum production. No leg swelling. Gallbladder ultrasound showed mild hepatomegaly at 19 cm with moderate hepatic steatosis. Numerous small layering gallstones. No ancillary imaging findings o f acute cholecystitis. However bile duct is borderline to mildly dilated up to 7 mm. This may be chronic for the patient. Correlate with alk phos and bilirubin levels. Laboratory data showed sodium 140 potassium 5.1 chloride 111 bicarb is 21, BUN 22 and creatinine 0.59 Total bili 0.7, AST 95, ALT 16 alk phos 62. Troponin x 1 negative Lipase 372, amylase 240 Urinalysis showed cloudy with trace protein and small leukocyte esterase with 6 RBCs and 19 WBCs and 6 squamous epithelial cells. UDS is positive for opiates. 01/29/2024 Patient is seen in follow-up today with general surgery following. Plans of gallbladder removal on 01/31/2024. Patient is currently n.p.o. although reports feeling hungry and continues to have abdominal pain. Will discuss with surgery about possible clear liquids for today and n.p.o. at midnight. Patient had a mildly elevated potassium yesterday and was given a dose of Lokelma and potassium has normalized today. Patient is afebrile with no reports of chest p ain or shortness of breath. Patient continues to report right upper quadrant pain and tenderness with no significant improvements since admission although reports having slight improvement with morphine. Encouraged to increase activity as tolerated. Review of systems: Constitutional: No reports of fatigue, fever, or chills Cardiovascular: No reports of chest pain or palpitations Respiratory: No reports of shortness of breath or cough GI: No reports of nausea, vomiting, or diarrhea, reports to feeling hungry, continued right-sided abdominal pain : No reports of dysuria or retention Neurovascular: No reports of weakness or numbness All medications have been reviewed PHYSICAL EXAMINATION: Patient is lying in the bed comfortably, no acute distress, awake alert and oriented.. HEENT: Normocephalic. Neck is supple. Pupils reactive. Nostrils clear. Oral cavity is moist. Neck reveals no JVD, carotid bruits, or thyromegaly. CHEST EXAMINATION: Trachea is central. Symmetrical expansion. Lung gonzalez clear to auscultation and percussion. CARDIAC: Normal S1, S2 with no gallops. No murmurs ABDOMEN: Soft. Bowel sounds normal. Mild epigastric and right upper quadrant tenderness. No guarding or rigidity. No organomegaly. No abdominal bruits. Extremities: reveal no edema. No clubbing or cyanosis Neurologically awake, alert, oriented x3 with well-coordinated movements. No focal deficits noted Skin: No rash or skin lesions. Psychiatric: Cooperative. Non-suicidal., Less anxious. Musculoskeletal: No joint swelling or deformity. Normal range of motion. Assessment: Intractable nausea and epigastric and right upper quadrant abdominal pain Numerous small layering gallstones Mildly dilated bile duct up to 7 mm Nausea and diarrhea with recent antibiotic use with clindamycin Diarrhea, rule out C. difficile Elevated liver enzymes, trending down Mild pancreatitis with lipase level 372 Hepatomegaly with moderate hepatic steatosis Severe alcohol abuse History of IVDU Hepatitis C with no prior history of treatment Mild hyperkalemia, improved Prior history of SVT status post ablation Prior history of gastric sleeve surgery Lumbar disc degenerative disease/bulging disc History of migraine headaches and sinus problems Prior history of ESBL UTI Anxiety/depression/bipolar disorder and panic disorder Currently everyday smoker DVT prophylaxis with heparin subcu Full code Plan: Patient will be continued on IV hydration. Continue symptomatic management for nausea and started on PPI IV twice daily along with pain management with morphine. Stool for C. difficile ordered due to diarrhea and recent antibiotic use. Although canceled by lab General surgery following with plans on laparoscopic cholecystectomy on 01/30/2024 Potassium was elevated and was given a dose of Lokelma with improvements potassium is 4.3 today Encouraged increase activity as tolerated Patient to be n.p.o. at midnight Patient is currently incarcerated with please officer at bedside. Plan to retu rn to [facility] once cleared by surgery The impression and plan of care has been dictated by Jasmina Irizarry, Nurse Practitioner as directed. Dr. Kemal MD I have performed a history and examination and MDM of this patient, discussed the same with the dictator, and agree with the dictator's assessment and plan as written ,documented as a scribe. Based on total visit time, I have performed more than 50% of the visit. Objective - Vital Signs Vital signs: Vital Signs Temp 97.8 F 01/29/24 07:50 Pulse 71 01/29/24 07:50 Resp 18 01/29/24 07:50 BP 104/67 01/29/24 07:50 Pulse Ox 100 01/29/24 07:50 FiO2 Intake & Output 01/28/24 01/29/24 01/29/24 18:59 06:59 18:59 Weight 68.039 kg 68.039 kg Other: # Voids 2 - Labs CBC & Chem 7: 01/29/24 03:29 01/29/24 03:29 Labs: Abnormal Lab Results - Last 24 Hours (Table) 01/28/24 01/28/24 01/28/24 Range/Units 10:04 10:04 10:04 RBC (3.80-5.40) m/uL Hgb (11.4-16.0) gm/dL Hct (34.0-46.0) % Potassium (3.5-5.1) mmol/L Chloride 111 H (98-107) mmol/L Carbon Dioxide 21 L (22-30) mmol/L BUN 22 H (7-17) mg/dL Glucose 120 H (74-99) mg/dL AST 95 H (14-36) U/L ALT 60 H (4-34) U/L Amylase 240 H (30-110) U/L Lipase 372 H (23-300) U/L Urine Appearance Cloudy H (Clear) Urine Protein Trace H (Negative) Ur Leukocyte Esterase Small H (Negative) Urine RBC 6 H (0-5) /hpf Urine WBC 19 H (0-5) /hpf Ur Squamous Epith Cells 6 H (0-4) /hpf Urine Bacteria Rare H (None) /hpf Urine Mucus Few H (None) /hpf Urine Opiates Screen Detected H (NotDetected) 01/28/24 01/29/24 Range/Units 12:48 03:29 RBC 3.32 L (3.80-5.40) m/uL Hgb 11.0 L (11.4-16.0) gm/dL Hct 31.7 L (34.0-46.0) % Potassium 5.4 H (3.5-5.1) mmol/L Chloride 109 H (98-107) mmol/L Carbon Dioxide (22-30) mmol/L BUN 22 H (7-17) mg/dL Glucose 108 H (74-99) mg/dL AST 245 H (14-36) U/L ALT 118 H (4-34) U/L Amylase (30-110) U/L Lipase (23-300) U/L Urine Appearance (Clear) Urine Protein (Negative) Ur Leukocyte Esterase (Negative) Urine RBC (0-5) /hpf Urine WBC (0-5) /hpf Ur Squamous Epith Cells (0-4) /hpf Urine Bacteria (None) /hpf Urine Mucus (None) /hpf Urine Opiates Screen (NotDetected)
[2024-01-30 06:07] LABS: MCH 32.3 pg (25.0-35.0); MCHC 33.4 g/dL (31.0-37.0); MCV 96.6 fL (80.0-100.0); Platelet Count 169 k/uL (150-450); RBC 3.41 m/uL (3.80-5.40); RDW 12.8 % (11.5-15.5)
[2024-01-30 06:31] LABS: ALT 51 U/L (4-34); AST 36 U/L (14-36); African American GFR (CKD) >90 (>60 ml/min/1.73 sqM); Albumin 2.7 g/dL (3.5-5.0); Albumin/Globulin Ratio 1.1; Alkaline Phosphatase 54 U/L (38-126); Anion Gap 4 mmol/L; Blood Urea Nitrogen 4 mg/dL (7-17); Calcium 8.3 mg/dL (8.4-10.2); Carbon Dioxide 23 mmol/L (22-30); Chloride 113 mmol/L (98-107); Globulin 2.4 g/dL; Glucose 80 mg/dL (74-99); Non-African American GFR(CKD) >90 (>60 ml/min/1.73 sqM); Potassium 4.4 mmol/L (3.5-5.1); Sodium 140 mmol/L (137-145); Total Bilirubin 0.4 mg/dL (0.2-1.3); Total Protein 5.1 g/dL (6.3-8.2)
[2024-01-30] MEDS: LIDOCAINE 2%-EPI 1:100,000 20 ML VIAL SQ ONE ×2 (11:39→12:01)
[2024-01-30] MEDS: DEXAMETHASONE SOD PHOSPHATE 4 MG/ML 1 ML VIAL IVP ONE (11:40)
[2024-01-30] MEDS: ONDANSETRON 4 MG/2 ML VIAL IVP ONE (11:40)
[2024-01-30] MEDS: IV FLUID CONTINUATION 1,000 ML IV ONE (11:40)
[2024-01-30] MEDS: FAMOTIDINE 20 MG/2 ML VIAL IVP ONE (11:40)
[2024-01-30] MEDS ORDERED: ceFAZolin 1 GM/50 ML BAG (PMX) ONE (11:41)
[2024-01-30] MEDS ORDERED: LIDOCAINE 1% INJ 10MG/ML (20 ML MDV) ONE (11:41)
[2024-01-30] MEDS ORDERED: ACETAMINOPHEN IV (For NPO) 1,000 MG/100 ML VIAL ONE (11:41)
[2024-01-30] MEDS ORDERED: NEOSTIGMINE 1 MG/ML 10 ML VIAL ONE (11:41)
[2024-01-30] MEDS ORDERED: SUCCINYLCHOLINE CHLORIDE 200 MG/10 ML VIAL IV ONE (11:41)
[2024-01-30] MEDS ORDERED: fentaNYL (PF) 50 MCG/ML 2 ML AMP ONE (11:41)
[2024-01-30] MEDS ORDERED: HYDROmorphone (PF) 1 MG/ML ONE (11:41)
[2024-01-30] MEDS ORDERED: KETOROLAC 15 MG/ML 1 ML VIAL ONE (11:41)
[2024-01-30] MEDS ORDERED: MIDAZOLAM 2 MG/2 ML VIAL ONE (11:41)
[2024-01-30] MEDS ORDERED: ROCURONIUM 10 MG/ML (5 ML VIAL) IV ONE (11:41)
[2024-01-30] MEDS ORDERED: PROPOFOL 10 MG/ML 20 ML VIAL IV ONE (11:41)
[2024-01-30] MEDS ORDERED: GLYCOPYRROLATE 0.2 MG/ML 2 ML VIAL ONE (11:41)
[2024-01-30] MEDS: SODIUM CHLORIDE 0.9% 100 ML with ceFAZolin 2,000 MG IV ONE (11:46)
--- NOTE | 2024-01-30 12:36 | P.OP ---
Date of Procedure: 01/30/24 Preoperative Diagnosis: cholecystitis Cholelithiasis Postoperative Diagnosis: cholecystitis Cholelithiasis Procedure(s) Performed: laparoscopic cholecystectomy Anesthesia: CHRIS Surgeon: Mitchell Ball Pathology: other (gall bladder) Condition: stable Description of Procedure: The patient was placed on the operating table. The patient received a general endotracheal tube anesthesia. The patients abdomen was prepped and draped in the usual sterile fashion. Through an infraumbilical stab incision, the fascia of the anterior abdominal wall was grasped with a pair of Kochers and then the Veress needle was placed in the peritoneal cavity. Position of the Veress needle was confirmed with positive drop test. The abdomen was then insufflated. After adequate insufflation, the 10 mm trocar was placed in the peritoneal cavity. Following this the laparoscope was placed in the peritoneal cavity. The patient was placed in the head-up, right side up position and then a 5 mm trocar was placed in the right lateral and right subcostal position under direct visualization. A 8 mm trocar was placed in the e pigastric position. The gallbladder was grasped in the fundus and infundibulum. Traction on the gallbladder was placed in the lateral and the cephalad positions. The triangle of Calot was visualized.. The cystic duct was bluntly dissected until the union of the cystic duct and common bile duct was seen. A critical view of safety was achieved. The cystic duct was then divided and sealed with the Harmonic scissors. A PDS Endoloop was then placed throughout the cystic duct stump. The cystic artery divided and sealed with the Harmonic scissors. The gallbladder was then removed from the liver bed using Harmonic scissors. The gallbladder was then extracted through the epigastric port site. Operative field was checked for any bleeding spots and Harmonic scissors was used to coagulate the liver bed. The abdomen was irrigated. The trocars were removed. The skin was closed using interrupted 3-0 Vicryl suture. Dermabond dressing were applied. The patient tolerated the procedure well.
[2024-01-30] MEDS: HYDROmorphone 0.5 MG/0.5 ML SYRINGE IVP ONE ×3 (12:47→13:08)
[2024-01-30] MEDS: MEPERIDINE 50 MG/ML SYRINGE IVP ONE (12:47)
[2024-01-30] MEDS: HYDROmorphone 1 MG/ML 1 ML SYRINGE IVP PRN (13:47)
--- NOTE | 2024-01-30 13:52 | P.PN ---
Subjective Progress Note Date: 01/30/24 CHIEF COMPLAINT: Cholecystitis HISTORY OF PRESENT ILLNESS: Patient continues to have right upper quadrant abdominal pain. She denies any nausea or vomiting. Denies any chest pain or shortness of breath. Afebrile. Liver enzymes are trending down. AST 36 ALT 51 total bili 0.4 potassium 4.4 PHYSICAL EXAM: VITAL SIGNS: Reviewed. GENERAL: Well-developed in no acute distress. ABDOMEN: Soft. Nondistended. Right upper quadrant tenderness NEUROLOGIC: Alert and oriented. Cranial nerves II through XII grossly intact. ASSESSMENT: 1. Cholecystitis 2. Cholelithiasis 3. Elevated liver enzymes 4. Hepatomegaly 5. Daily alcohol use 6. Hepatitis C history 7. History of IV drug use 8. Hyperkalemia resolved PLAN: -Patient scheduled for laparoscopic cholecystectomy today -Keep patient n.p.o. Physician [employer] Supervisor note has been reviewed by physician. Signing provider agrees with the documented findings, assessment, and plan of care. Objective - Vital Signs Vital signs: Vital Signs Temp 97.8 F 01/30/24 07:10 Pulse 67 01/30/24 07:10 Resp 16 01/30/24 07:10 BP 95/62 01/30/24 07:10 Pulse Ox 99 01/30/24 07:10 FiO2 Intake & Output 01/29/24 01/30/24 01/30/24 18:59 06:59 18:59 Intake Total 2700 1700 Balance 2700 1700 Weight 68.039 kg Intake: Oral 2700 1700 Other: Voiding Method Toilet # Voids 1 2 # Bowel Movements 1 - Labs CBC & Chem 7: 01/30/24 05:45 01/30/24 05:45 Labs: Abnormal Lab Results - Last 24 Hours (Table) 01/29/24 01/30/24 01/30/24 Range/Units 03:29 05:45 05:45 WBC 3.0 L (3.8-10.6) k/uL RBC 3.41 L (3.80-5.40) m/uL Hgb 11.0 L (11.4-16.0) gm/dL Hct 33.0 L (34.0-46.0) % Sodium 136 L (137-145) mmol/L Chloride 112 H 113 H (98-107) mmol/L Carbon Dioxide 21 L (22-30) mmol/L BUN 4 L (7-17) mg/dL Creatinine 0.49 L (0.52-1.04) mg/dL Calcium 8.0 L 8.3 L (8.4-10.2) mg/dL AST 56 H (14-36) U/L ALT 75 H 51 H (4-34) U/L Total Protein 5.2 L 5.1 L (6.3-8.2) g/dL Albumin 2.7 L 2.7 L (3.5-5.0) g/dL
[2024-01-30] MEDS: ONDANSETRON 4 MG/2 ML VIAL IVP PRN (14:47)
--- NOTE | 2024-01-30 15:40 | P.PN ---
Subjective Progress Note Date: 01/30/24 Patient is a 33-year-old female with a past medical history of heroin IV drug use, polysubstance use, SVT status post ablation, seizure disorder, lumbar disc degenerative disease, alcohol abuse, hepatitis C, migraine headaches and history of ruptured spleen with surgery and also history of sleeve gastrectomy. Patient presents to ER with complaints of nausea and diarrhea and abdominal pain x 1 week. Patient states that she has been having abdominal pain mainly in the epigastric and right upper quadrant region associate with severe nausea. States that she has been on antibiotics for the past 2 weeks. Initially was treated for tooth infection and followed by yeast infection for which she is on different antibiotic for the past 1 week and today is her last dose. Patient states that she woke up with pain this morning. Denies any fever or chills. No chest pain or shortness of breath. No cough or sputum production. No leg swelling. Gallbladder ultrasound showed mild hepatomegaly at 19 cm with moderate hepatic steatosis. Numerous small layering gallstones. No ancillary imaging findings o f acute cholecystitis. However bile duct is borderline to mildly dilated up to 7 mm. This may be chronic for the patient. Correlate with alk phos and bilirubin levels. Laboratory data showed sodium 140 potassium 5.1 chloride 111 bicarb is 21, BUN 22 and creatinine 0.59 Total bili 0.7, AST 95, ALT 16 alk phos 62. Troponin x 1 negative Lipase 372, amylase 240 Urinalysis showed cloudy with trace protein and small leukocyte esterase with 6 RBCs and 19 WBCs and 6 squamous epithelial cells. UDS is positive for opiates. 01/29/2024 Patient is seen in follow-up today with general surgery following. Plans of gallbladder removal on 01/31/2024. Patient is currently n.p.o. although reports feeling hungry and continues to have abdominal pain. Will discuss with surgery about possible clear liquids for today and n.p.o. at midnight. Patient had a mildly elevated potassium yesterday and was given a dose of Lokelma and potassium has normalized today. Patient is afebrile with no reports of chest p ain or shortness of breath. Patient continues to report right upper quadrant pain and tenderness with no significant improvements since admission although reports having slight improvement with morphine. Encouraged to increase activity as tolerated. 01/30/2024 Patient is seen this morning currently n.p.o. as patient is scheduled to undergo laparoscopic cholecystectomy with Dr. Ball today. Patient continues to report 10/10 pain on the right upper quadrant and continues to have multiple ep isodes of diarrhea. C. difficile testing was canceled per lab as the stool was somewhat formed. Patient is currently afebrile with no reported chest pain or shortness of breath. Will await surgical report and await to resume diet once cleared by surgery. Will add incentive spirometer and instruct the patient to use at least 10 times every hour while awake. Encouraged increase activity as tolerated. Patient will be returning to [facility] once cleared by surgery. Review of systems: Constitutional: No reports of fatigue, fever, or chills Cardiovascular: No reports of chest pain or palpitations Respiratory: No reports of shortness of breath or cough GI: No reports of nausea, vomiting, reports continued diarrhea, reports to feeling hungry, continued right-sided abdominal pain : No reports of dysuria or retention Neurovascular: No reports of weakness or numbness All medications have been reviewed PHYSICAL EXAMINATION: Patient is lying in the bed comfortably, no acute distress, awake alert and oriented.. HEENT: Normocephalic. Neck is supple. Pupils reactive. Nostrils clear. Oral cav ity is moist. Neck reveals no JVD, carotid bruits, or thyromegaly. CHEST EXAMINATION: Trachea is central. Symmetrical expansion. Lung gonzalez clear to auscultation and percussion. CARDIAC: Normal S1, S2 with no gallops. No murmurs ABDOMEN: Soft. Bowel sounds normal. Mild epigastric and right upper quadrant tenderness on palpation. No guarding or rigidity. No organomegaly. No abdominal bruits. Extremities: reveal no edema. No clubbing or cyanosis Neurologically awake, alert, oriented x3 with well-coordinated movements. No focal deficits noted Skin: No rash or skin lesions. Psychiatric: Cooperative. Non-suicidal., Less anxious. Musculoskeletal: No joint swelling or deformity. Normal range of motion. Assessment: Intractable nausea and epigastric and right upper quadrant abdominal pain, scheduled for laparoscopic cholecystectomy 01/30/2024 Numerous small layering gallstones Mildly dilated bile duct up to 7 mm Nausea and diarrhea with recent antibiotic use with clindamycin Diarrhea, rule out C. difficile Elevated liver enzymes, trending down Mild pancreatitis with lipase level 372 Hepatomegaly with moderate hepatic steatosis Severe alcohol abuse History of IVDU Hepatitis C with no prior history of treatment Mild hyperkalemia, improved Prior history of SVT status post ablation Prior history of gastric sleeve surgery Lumbar disc degenerative disease/bulging disc History of migraine headaches and sinus problems Prior history of ESBL UTI Anxiety/depression/bipolar disorder and panic disorder Currently everyday smoker DVT prophylaxis with heparin subcu Full code Plan: Patient will be continued on IV hydration. Continue symptomatic management for nausea and continue on PPI IV twice daily along with pain management with morphine. Stool for C. difficile ordered due to diarrhea and recent antibiotic use. Although canceled by lab as stool was somewhat formed General surgery following with plans on laparoscopic cholecystectomy today. Patient is n.p.o. and diet will be resumed once cleared by surgery Labs reviewed within normal limits. Encouraged increase activity as tolerated Patient is currently incarcerated with consular officer at bedside. Plan to return to [facility] once cleared by surgery Possible discharge in the next 24 hours The impression and plan of care has been dictated by Jasmina Irizarry, Nurse Practitioner as directed. Dr. Kemal MD I have performed a history and examination and MDM of this patient, discussed the same with the dictator, and agree with the dictator's assessment and plan as written ,documented as a scribe. Based on total visit time, I have performed more than 50% of the visit. Objective - Vital Signs Vital signs: Vital Signs Temp 97.8 F 01/30/24 07:10 Pulse 67 01/30/24 07:10 Resp 16 01/30/24 07:10 BP 95/62 01/30/24 07:10 Pulse Ox 99 01/30/24 07:10 FiO2 Intake & Output 01/29/24 01/30/24 01/30/24 18:59 06:59 18:59 Intake Total 2700 1700 Balance 2700 1700 Weight 68.039 kg Intake: Oral 2700 1700 Other: Voiding Method Toilet # Voids 1 2 # Bowel Movements 1 - Labs CBC & Chem 7: 01/30/24 05:45 01/30/24 05:45 Labs: Abnormal Lab Results - Last 24 Hours (Table) 01/29/24 01/30/24 01/30/24 Range/Units 03:29 05:45 05:45 WBC 3.0 L (3.8-10.6) k/uL RBC 3.41 L (3.80-5.40) m/uL Hgb 11.0 L (11.4-16.0) gm/dL Hct 33.0 L (34.0-46.0) % Sodium 136 L (137-145) mmol/L Chloride 112 H 113 H (98-107) mmol/L Carbon Dioxide 21 L (22-30) mmol/L BUN 4 L (7-17) mg/dL Creatinine 0.49 L (0.52-1.04) mg/dL Calcium 8.0 L 8.3 L (8.4-10.2) mg/dL AST 56 H (14-36) U/L ALT 75 H 51 H (4-34) U/L Total Protein 5.2 L 5.1 L (6.3-8.2) g/dL Albumin 2.7 L 2.7 L (3.5-5.0) g/dL
[2024-01-30 16:00] LABS: HCT 36.5 % (34.0-46.0); HGB 12.1 gm/dL (11.4-16.0); MCH 31.9 pg (25.0-35.0); MCHC 33.2 g/dL (31.0-37.0); Mean Platelet Volume 8.3; Platelet Count 194 k/uL (150-450); RDW 12.6 % (11.5-15.5); WBC 12.5 k/uL (3.8-10.6)
[2024-01-31] MEDS: HYDROcodone/APAP 5-325MG 1 EACH TAB PO PRN (08:16)
[2024-01-31] MEDS: ENOXAPARIN 40 MG/0.4 ML SYRINGE SQ SCH (08:16)
[2024-01-31 08:37] LABS: HCT 31.9 % (37.2-46.3); HGB 10.3 g/dL (12.0-15.0); MCH 30.8 pg (27.0-32.0); MCHC 32.3 g/dL (32.0-37.0); MCV 95.5 FL (80.0-97.0); Mean Platelet Volume 10.9 FL (9.5-12.2); NRBC Per 100 WBC 0 X 10*3/uL (0.00-0.01); Platelet Count 162 X 10*3/uL (140-440); RBC 3.34 X 10*6/uL (4.10-5.20); RDW 12.3 % (11.5-14.5); WBC 10.78 X 10*3/uL (4.50-10.00)
--- NOTE | 2024-01-31 12:34 | P.PN ---
Subjective Progress Note Date: 01/31/24 CHIEF COMPLAINT: Cholecystitis HISTORY OF PRESENT ILLNESS: Patient is postop day #1 status post laparoscopic cholecystectomy. She is tolerating diet. Pain is controlled. She does complain of more tenderness in the epigastric area. Denies any nausea or vomiting. Afebrile. WBC 12.5 down to 10.78. Hemoglobin 10.3 platelets 162 Patient seen and examined with Dr. Ball PHYSICAL EXAM: VITAL SIGNS: Reviewed. GENERAL: Well-developed in no acute distress. ABDOMEN: Soft. Nondistended. Incision sites clean dry and intact. Small swelling epigastric incision site NEUROLOGIC: Alert and oriented. Cranial nerves II through XII grossly intact. ASSESSMENT: 1. Cholecystitis 2. Cholelithiasis 3. Elevated liver enzymes 4. Hepatomegaly 5. Daily alcohol use 6. Hepatitis C history 7. History of IV drug use 8. Hyperkalemia resolved PLAN: -Patient can be discharged from surgical standpoint -Continue Tylenol for pain -Patient to continue to wear the abdominal binder for possible epigastric incisional hematoma -Continue ice as needed Physician Net Finisher note has been reviewed by physician. Signing provider agrees with the documented findings, assessment, and plan of care. Objective - Vital Signs Vital signs: Vital Signs Temp 98.2 F 01/31/24 07:26 Pulse 77 01/31/24 07:26 Resp 18 01/31/24 07:26 BP 120/75 01/31/24 07:26 Pulse Ox 97 01/31/24 07:26 FiO2 Intake & Output 01/30/24 01/31/24 01/31/24 18:59 06:59 18:59 Intake Total 3060 Output Total 5 Balance 3055 Weight 68.039 kg 68.039 kg Intake: IV 800 Intake, IV Titration 1000 Amount Sodium Chloride 0.9% 1, 1000 000 ml @ 100 mls/hr IV . Q10H LAW Rx#:[id number] Oral 1260 Output: Estimated Blood Loss 5 Other: Voiding Method Toilet # Voids 3 2 - Labs CBC & Chem 7: 01/31/24 04:37 01/30/24 05:45 Labs: Abnormal Lab Results - Last 24 Hours (Table) 01/30/24 01/31/24 Range/Units 15:43 04:37 WBC 12.5 H 10.78 H (3.8-10.6) k/uL RBC 3.34 L (4.10-5.20) X 10*6/uL Hgb 10.3 L (12.0-15.0) g/dL Hct 31.9 L (37.2-46.3) %
[2024-01-31 13:09] VITALS: BP 125/74; PULSE 69; RESP 16; TEMP 98.3
--- NOTE | 2024-02-02 13:06 | P.DS ---
Providers Date of admission: 01/28/24 13:56 Expected date of discharge: 01/31/24 Attending physician: Magalys Sommer Consults: 01/28/24 12:44 Consult Physician Urgent Consulting Provider: Mitchell Ball Consult Reason/Comments: Gallstones, intractable abdominal pain Do you want consulting provider notified?: Already Contacted 01/28/24 22:13 Consult Physician Urgent Consulting Provider: Casper Hernandez Consult Reason/Comments: Suicide Risk Assessment Score of 4 Do you want consulting provider notified?: Yes Primary care physician: Stated None Hospital Course: Final diagnosis Intractable nausea and epigastric and right upper quadrant abdominal pain, status post laparoscopic cholecystectomy 01/30/2024 Numerous small layering gallstones Mildly dilated bile duct up to 7 mm Nausea and diarrhea with recent antibiotic use with clindamycin Diarrhea, ruled out C. difficile Elevated liver enzymes, trending down Mild pancreatitis with lipase level 372 Hepatomegaly with moderate hepatic steatosis Severe alcohol abuse History of IVDU Hepatitis C with no prior history of treatment Mild hyperkalemia, improved Prior history of SVT status post ablation Prior history of gastric sleeve surgery Lumbar disc degenerative disease/bulging disc History of migraine headaches and sinus problems Prior history of ESBL UTI Anxiety/depression/bipolar disorder and panic disorder Currently everyday smoker DVT prophylaxis with heparin subcu Full code Discharge disposition Patient is being discharged in a stable condition with guarded prognosis to [facility] to [facility] where she is currently incarcerated. Patient will follow-up with her PCP in the outpatient setting upon discharge. Patient is to continue with Tylenol and/or Motrin as scheduled. Patient to follow-up with general surgery outpatient total time taken is greater than 35 minutes. Hospital course This is a 33-year-old female who was recently admitted with abdominal pain with intractable nausea vomiting being closely monitored. Patient evaluated by general surgery and underwent gallbladder ultrasound showing numerous small layering gallstones with mildly dilated bile duct. Patient with continued right upper quadrant tenderness evaluated by surgery recommending cholecystectomy and patient is status post laparoscopic cholecystectomy with Dr. Ball on 01/30/2024. Patient has been cleared by consultations for discharge and will be returning to senior care on discharge. Patient instructed to continue using abdominal binder while up and outpatient follow-up in 1 week with general surgery. Patient to continue with Tylenol and/or Motrin for pain. Currently no reports of chest pain, shortness of breath, or palpitations. Patient is afebrile. No reports of nausea or vomiting and patient is tolerating diet. Patient will be discharged to [facility] today. Physical exam: Gen: This is a 33-year-old female who is awake, alert and oriented x 3, well- developed, well-nourished, unkempt HEENT: Head is atraumatic, normocephalic. Pupils equal, round. Sclerae is anicteric. NECK: Supple. No JVD. No lymphadenopathy. No thyromegaly. LUNGS: Clear to auscultation. No wheezes or rhonchi. No intercostal retractio ns. HEART: Regular rate and rhythm. No murmur. ABDOMEN: Soft. Tender on palpation at the surgical site. Mild hematoma noted above the upper umbilical area incision with no bleeding or drainage noted. Bowel sounds are present. No masses. EXTREMITIES: No pedal edema. No calf tenderness. NEUROLOGICAL: Patient is awake, alert and oriented x3. Cranial nerves 2 through 12 are grossly intact. Please refer to medication reconciliation sheet for a list of medications. The impression and plan of care has been dictated by Jasmina Irizarry, Nurse Practitioner as directed. Dr. Honorio MD I have performed a history and examination and MDM of this patient, discussed the same with the dictator, and agree with the dictator's assessment and plan as written ,documented as a scribe. Based on total visit time, I have performed more than 50% of the visit. Patient Condition at Discharge: Fair Plan - Discharge Summary Discharge Rx Participant: No New Discharge Prescriptions: New Acetaminophen Tab [Tylenol Tab] 650 mg PO Q4H PRN #30 tablet PRN Reason: Pain Ibuprofen [Motrin] 400 mg PO Q6HR PRN #10 tab PRN Reason: Pain Continue Miconazole/Cleanser 17 On Wipe [Miconazole 3 Kit] 1 applicator VAGINAL HS Loratadine 10 mg PO DAILY Discontinued clindamycin HCL 300 mg PO TID Discharge Medication List Loratadine 10 mg PO DAILY 01/28/24 [History] Miconazole/Cleanser 17 On Wipe [Miconazole 3 Kit] 1 applicator VAGINAL HS 01/28/24 [History] Acetaminophen Tab [Tylenol Tab] 650 mg PO Q4H PRN #30 tablet 01/31/24 [Rx] Ibuprofen [Motrin] 400 mg PO Q6HR PRN #10 tab 01/31/24 [Rx] Follow up Appointment(s)/Referral(s): None,Stated [Primary Care Provider] - 1-2 days (Patient instructed to follow-up with primary care physician in 1-2 days) Mitchell Ball MD [STAFF PHYSICIAN] - 02/06/24 3:50 pm Patient Instructions/Handouts: *Surgery [facility] - ([facility]) Laparoscopic Cholecystectomy, Acetaminophen (By mouth), Surgical Site Infections (DC) Activity/Diet/Wound Care/Special Instructions: No lifting over 10 pounds Shower daily. No soaking or tub baths for 2 weeks Very light activity until you are re-evaluated at your follow up appointment with your surgeon Continue with abdominal binder and ice to the area as needed Continue with Tylenol and/or Motrin for pain Discharge Disposition: HOME SELF-CARE
== END 2024-01-31 13:42 | disposition home or self-care (01) ==
LOC: EC 09:43 → 6NMEDSUR 13:55 → OBSVTOIN 13:56 → INTOOBSV 13:56 → 1SOBS 14:21 → 5NMEDONC 01-29 06:44 → UNDODISIN 01-31 13:42
PROVIDERS: ADMIT Internal Medicine; ATTEND Internal Medicine
PROC: 0FT44ZZ Resection of Gallbladder, Percutaneous Endoscopic Approach (ICD-10-PCS; principal; 2024-01-30 07:30)
DX: K80.10 Calculus of gallbladder with chronic cholecystitis without obstruction (principal); E87.5 Hyperkalemia; K85.90 Acute pancreatitis without necrosis or infection, unspecified; B19.20 Unspecified viral hepatitis C without hepatic coma; L76.32 Postprocedural hematoma of skin and subcutaneous tissue following other procedure; K83.8 Other specified diseases of biliary tract; G43.909 Migraine, unspecified, not intractable, without status migrainosus; G40.909 Epilepsy, unspecified, not intractable, without status epilepticus; K76.0 Fatty (change of) liver, not elsewhere classified; I47.10 Supraventricular tachycardia, unspecified; F10.10 Alcohol abuse, uncomplicated; F31.9 Bipolar disorder, unspecified; F41.1 Generalized anxiety disorder; K21.9 Gastro-esophageal reflux disease without esophagitis; F41.0 Panic disorder [episodic paroxysmal anxiety]; R19.7 Diarrhea, unspecified; M51.36 Other intervertebral disc degeneration, lumbar region; F17.210 Nicotine dependence, cigarettes, uncomplicated; Z79.899 Other long term (current) drug therapy; Z88.8 Allergy status to other drugs, medicaments and biological substances; Z87.898 Personal history of other specified conditions; Z87.440 Personal history of urinary (tract) infections; Z98.84 Bariatric surgery status; Z81.3 Family history of other psychoactive substance abuse and dependence
CPT/HCPCS: 96376 ×4; 96361 ×3; 96372 ×3; 96375 ×2; 96374; 99285; 36415; 99406; 81025; 88304; 80053 ×3; 82150; 83605; 83690; 84484; 85025 ×2; 85027 ×2; 81001; 84703; 80306; 80320; 76705; 47562; G0378 ×5; J2250; J0330; J2060; J2270 ×3; J1644 ×2; J1100; J2710; J2175; J2405 ×2; J0690 ×2; J2001; J1650; J3010; J3490 ×2; J1170 ×4; J0131; J1885 ×2; J2704; C9113 ×4

== ENCOUNTER 2024-10-21 13:22 | Inpatient (IN) | payer OTHER ==
--- NOTE | 2024-10-21 14:00 | ED ---
Psych HPI - General Chief Complaint: Psychiatric Symptoms Stated Complaint: mental health Time Seen by Provider: 10/21/24 13:30 Source: patient, RN notes reviewed Mode of arrival: ambulatory Limitations: no limitations - History of Present Illness Initial Comments: 34-year-old female presents emergency department for psychiatric evaluation. Patient states she recently out of the hospital after a long stay for infections from injections. Patient states that she relapsed on drug use, alcohol states that she has been using anything she can get her hands on. She denies any areas of infection at this time she states she does feel suicidal, very depressed states that she was on medications up until a week ago when things worsened and she relapsed. - Related Data Home Medications Medication Instructions Recorded Confirmed Loratadine 10 mg PO DAILY 01/28/24 01/28/24 Miconazole/Cleanser 17 On Wipe 1 applicator VAGINAL HS 01/28/24 01/28/24 [Miconazole 3 Kit] Previous Rx's Medication Instructions Recorded Acetaminophen Tab [Tylenol Tab] 650 mg PO Q4H PRN #30 tablet 01/31/24 Ibuprofen [Motrin] 400 mg PO Q6HR PRN #10 tab 01/31/24 Allergies Allergy/AdvReac Type Severity Reaction Status Date / Time trazodone AdvReac dizziness Verified 10/21/24 13:36 Review of Systems ROS Statement: Those systems with pertinent positive or pertinent negative responses have been documented in the HPI. ROS Other: All systems not noted in ROS Statement are negative. Past Medical History Past Medical History: Liver Disease, Renal Disease, Seizure Disorder, Supraventricular Tachycardia (SVT) Additional Past Medical History / Comment(s): SVT with cardiac ablation, lumbar DDD, bulging lumbar disc, ETOH abuse, alcohol withdrawals, pt states she has a seizure disorder and has alcohol withdrawal seizures with last seizure in 2020, drug abuse/pt states IV drug abuse, hepatitis C, lumbar DDD/bulging discs, migraines, sinus problems, past bilateral arm fractures/casted, past broken left ankle and leg/casted, ruptured spleen with surgery. History of Any Multi-Drug Resistant Organisms: ESBL Date of last positivie culture/infection: 01/17/22 MDRO Source:: ESBL URINE Past Surgical History: Bariatric Surgery, Cardiac Ablation, EPS, Orthopedic Surgery Additional Past Surgical History / Comment(s): Cardiac ablation for SVT, gastric sleeve, spleen repair, I&D L wrist. Past Anesthesia/Blood Transfusion Reactions: No Reported Reaction Additional Past Anesthesia/Blood Transfusion Reaction / Comment(s): Pt has clausterphobia. Past Psychological History: Anxiety, Bipolar, Depression, Panic Disorder Smoking Status: Current every day smoker Past Alcohol Use History: Daily Past Drug Use History: Heroin, IV Drug Use, Marijuana, Methamphetamine, Opiates, Prescription Drug Abuse - Past Family History Father History Unknown: Yes Family Medical History: COPD, Diabetes Mellitus Mother History Unknown: Yes Family Medical History: Asthma Additional Family Medical History / Comment(s): pt reports mother had cyclic vomiting issues, substance abuse history Sister(s) Family Medical History: Supraventricular Tachycardia (SVT) Additional Family Medical History / Comment(s): Sister had SVT. She is recently from overdose. General Exam Limitations: no limitations General appearance: alert, in no apparent distress Head exam: Present: atraumatic, normocephalic, normal inspection Neck exam: Present: normal inspection, full ROM. Absent: tenderness, meningismus, lymphadenopathy Respiratory exam: Present: normal lung sounds bilaterally. Absent: respiratory distress, wheezes, rales, rhonchi, stridor Cardiovascular Exam: Present: regular rate, normal rhythm, normal heart sounds. Absent: systolic murmur, diastolic murmur, rubs, gallop, clicks GI/Abdominal exam: Present: soft, normal bowel sounds. Absent: distended, tenderness, guarding, rebound, rigid Neurological exam: Present: alert, oriented X3, CN II-XII intact, reflexes normal. Absent: motor sensory deficit Psychiatric exam: Present: depressed Course Vital Signs 10/21/24 13:32 Temperature 98 F Pulse Rate 110 H Respiratory 18 Rate Blood Pressure 135/78 O2 Sat by Pulse 98 Oximetry Medical Decision Making - Medical Decision Making Was pt. sent in by a medical professional or institution (, PA, APPEALS NURSE, urgent care, hospital, or detention...) When possible be specific @ -No Did you speak to anyone other than the patient for history (EMS, parent, family, police, friend...)? What history was obtained from this source @ -No Did you review nursing and triage notes (agree or disagree)? Why? @ -I reviewed and agree with nursing and triage notes Were old charts reviewed (outside hosp., previous admission, EMS record, old EKG, old radiological studies, urgent care reports/EKG's, detention records)? Report findings @ -No old charts were reviewed Differential Diagnosis (chest pain, altered mental status, abdominal pain women, abdominal pain men, vaginal bleeding, weakness, fever, dyspnea, syncope, headache, dizziness, GI bleed, back pain, seizure, CVA, palpatations, mental health, musculoskeletal)? @ -Differential Mental Health Depression, anxiety, bipolar, psychosis, schizophrenia, borderline personality, situational depression, adjustment disorder, behavioral disorder, brain tumor, malingering, substance abuse, encephalopathy, medication reaction, dementia, hypothyroidism, degenerative neurologic disorder, lupus.... This is not meant to be all-inclusive list EKG interpreted by me (3pts min.). @ -None X-rays interpreted by me (1pt min.). @ -None done CT interpreted by me (1pt min.). @ -None done U/S interpreted by me (1pt. min.). @ -None done What testing was considered but not performed or refused? (CT, X-rays, U/S, labs)? Why? @ -None What meds were considered but not given or refused? Why? @ -None Did you discuss the management of the patient with other professionals (professionals i.e. , PA, APPEALS NURSE, lab, RT, psych nurse, hospital social worker, vulcan crewmember, teacher, chief environmental commitment officer, protective services case worker)? Give summary @ -EPS evaluated patient recommended inpatient treatment, discussed case with Joseph with [facility] [place] who accepts admission Was smoking cessation discussed for >3mins.? @ -No Was critical care preformed (if so, how long)? @ -No Were there social determinants of health that impacted care today? How? (Homelessness, low income, unemployed, alcoholism, drug addiction, transportation, low edu. Level, literacy, decrease access to med. care, [facility], rehab)? @ -No Was there de-escalation of care discussed even if they declined (Discuss DNR or withdrawal of care, Hospice)? DNR status @ -No What co-morbidities impacted this encounter? (DM, HTN, Smoking, COPD, CAD, Cancer, CVA, ARF, Chemo, Hep., AIDS, mental health diagnosis, sleep apnea, morbid obesity)? @ -None Was patient admitted / discharged? Hospital course, mention meds given and route, prescriptions, significant lab abnormalities, going to OR and other pertinent info. @ -Patient is admitted initially admitted to psychiatric floor but concerns of alcohol withdrawal with unclear story as patient continues to change how long she has been out of the hospital and how long she has been drinking there is concern for alcohol withdrawal patient was placed on alcohol withdrawal protocol Undiagnosed new problem with uncertain prognosis? @ -No Drug Therapy requiring intensive monitoring for toxicity (Heparin, Nitro, Insulin, Cardizem)? @ -No Were any procedures done? @ -No Diagnosis/symptom? @ -Depression, suicidal ideation, drug abuse, alcohol abuse, alcohol withdrawal Acute, or Chronic, or Acute on Chronic? @ -Acute Uncomplicated (without systemic symptoms) or Complicated (systemic symptoms)? @ -Complicated Side effects of treatment? @ -No Exacerbation, Progression, or Severe Exacerbation? @ -No Poses a threat to life or bodily function? How? (Chest pain, [place], [place], pneumonia, PE, COPD, DKA, ARF, appy, cholecystitis, CVA, Diverticulitis, Homicidal, Suicidal, threat to staff... and all critical care pts) @ -Yes suicidal - Lab Data Lab Results 10/21/24 10/21/24 Range/Units 14:14 14:14 Urine Opiates Screen Not Detected (NotDetected) Ur Oxycodone Screen Not Detected (NotDetected) Urine Methadone Screen Not Detected (NotDetected) Ur Barbiturates Screen Not Detected (NotDetected) U Tricyclic Antidepress Not Detected (NotDetected) Ur Phencyclidine Scrn Not Detected (NotDetected) Ur Amphetamines Screen Not Detected (NotDetected) U Methamphetamines Scrn Not Detected (NotDetected) U Benzodiazepines Scrn Detected H (NotDetected) Urine Cocaine Screen Not Detected (NotDetected) U Marijuana (THC) Screen Detected H (NotDetected) SARS-CoV-2 (PCR) Not Detected (Not Detectd) Disposition Clinical Impression: Depression, Suicidal ideation, Drug abuse, Alcohol abuse, Alcohol abuse with withdrawal Disposition: ADMITTED IP TO THIS [facility] Condition: Poor Referrals: None,Stated [Primary Care Provider] - 1-2 days Time of Disposition: 15:07
[2024-10-21] MEDS: IBUPROFEN 600 MG TAB PO STA (14:51)
[2024-10-21] MEDS: LORazepam 1 MG TAB PO STA (14:52)
[2024-10-21 15:13] LABS: Amphetamine Screen,Urine Not Detected (NotDetected); Barbiturate Screen,Urine Not Detected (NotDetected); Benzodiazepines Screen,Urine Detected (NotDetected); Cocaine Screen,Urine Not Detected (NotDetected); Methadone Screen, Urine Not Detected (NotDetected); Opiate Screen,Urine Not Detected (NotDetected); Oxycodone Screen, Urine Not Detected (NotDetected); Phencyclidine Screen,Urine Not Detected (NotDetected); Tricyclic Antidepressant,Urine Not Detected (NotDetected); Urn Cannabinoid Scrn Detected (NotDetected)
[2024-10-21] MEDS ORDERED: LORazepam 2 MG/ML INJ IV PRN ×4 (15:57→20:28)
[2024-10-21] MEDS ORDERED: NALOXONE 0.4 MG/ML 1 ML VIAL IV PRN (16:49)
[2024-10-21] MEDS ORDERED: NALOXONE 0.4 MG/ML 1 ML VIAL IM PRN (16:57)
[2024-10-21] MEDS ORDERED: CYCLOBENZAPRINE 5 MG TAB PO PRN (16:59)
[2024-10-21] MEDS ORDERED: SODIUM CHLORIDE 0.9% 1,000 ML IV SCH (17:00)
[2024-10-21] MEDS ORDERED: ONDANSETRON 4 MG TAB PO PRN (17:01)
[2024-10-21] MEDS ORDERED: LOPERAMIDE 2 MG CAP PO PRN (17:01)
--- NOTE | 2024-10-21 17:18 | P.HPIM ---
History of Present Illness H&P Date: 10/21/24 Chief Complaint: Suicidal attempt? Adelita is a 34-year-old female with past medical history of crack use, methamphetamine use, heroin use, and alcohol use disorder. Adelita presents to the hospital for rather unclear reasons. From what she describes she reports that she was discharged recently from [facility] for which she was hospitalized for the entirety of August. During that time she reports that she had numerous subcutaneous abscesses there were presumed caused by her injection drug use. She reports that she was diagnosed with an epidural abscess from what she describes. She reports that she was treated with IV vancomycin and was discharged to a long-term facility with a PICC line. She reports that she was in a long-term facility for approximately 4 weeks. She reports she was then discharged later with PICC line removal She reports that she had then presented back to [place] where she resides with her aunt and her father. She reports that there was this questionable suicide attempt that had brought her to the hospital. She reports that she had taken someone else's medications. She reports that there was not a clear intent on performing suicide however she reports that what she describes that she wanted to obtain drugs. She reports that she drinks about a pint of vodka daily. In addition she also injects several recreational drugs such as crack, methamphetamine and heroin. She reports that she was diagnosed with hepatitis C and has not been treated. She reports that she has been using recreational drugs since she was a teenager. She reports that previously she was on Suboxone 8 mg twice daily but for reasons unclear if this was later discontinued. She reports that various times she has been on naltrexone however that was noted to be ineffective. She had then presented to the hospital for further evaluation. She was evaluated by inpatient psychiatry and had recommended inpatient admission however her CIWA score was noted to be 19 and she was medically admitted. Past Medical History Past Medical History: Liver Disease, Renal Disease, Seizure Disorder, Supraventricular Tachycardia (SVT) Additional Past Medical History / Comment(s): SVT with cardiac ablation, lumbar DDD, bulging lumbar disc, ETOH abuse, alcohol withdrawals, pt states she has a seizure disorder and has alcohol withdrawal seizures with last seizure in 2020, drug abuse/pt states IV drug abuse, hepatitis C, lumbar DDD/bulging discs, migraines, sinus problems, past bilateral arm fractures/casted, past broken left ankle and leg/casted, ruptured spleen with surgery. History of Any Multi-Drug Resistant Organisms: ESBL Date of last positivie culture/infection: 01/17/22 MDRO Source:: ESBL URINE Past Surgical History: Bariatric Surgery, Cardiac Ablation, EPS, Orthopedic Surgery Additional Past Surgical History / Comment(s): Cardiac ablation for SVT, gastric sleeve, spleen repair, I&D L wrist. Past Anesthesia/Blood Transfusion Reactions: No Reported Reaction Additional Past Anesthesia/Blood Transfusion Reaction / Comment(s): Pt has clausterphobia. Past Psychological History: Anxiety, Bipolar, Depression, Panic Disorder Smoking Status: Current every day smoker Past Alcohol Use History: Daily Past Drug Use History: Heroin, IV Drug Use, Marijuana, Methamphetamine, Opiates, Prescription Drug Abuse - Past Family History Father History Unknown: Yes Family Medical History: COPD, Diabetes Mellitus Mother History Unknown: Yes Family Medical History: Asthma Additional Family Medical History / Comment(s): pt reports mother had cyclic vomiting issues, substance abuse history Sister(s) Family Medical History: Supraventricular Tachycardia (SVT) Additional Family Medical History / Comment(s): Sister had SVT. She is recently from overdose. Medications and Allergies Home Medications Medication Instructions Recorded Confirmed Type Dicyclomine [Bentyl] 10 mg PO QID 10/21/24 10/21/24 History Doxepin HCl [SINEquan] 75 mg PO DAILY 10/21/24 10/21/24 History Gabapentin [Neurontin] 1,200 mg PO TID 10/21/24 10/21/24 History Loperamide [Imodium] 2 mg PO Q4H PRN 10/21/24 10/21/24 History Ondansetron [Zofran] 4 mg PO Q6H PRN 10/21/24 10/21/24 History Pramipexole [Mirapex] 0.25 mg PO DAILY 10/21/24 10/21/24 History Topiramate [Topamax] 100 mg PO BID 10/21/24 10/21/24 History methocarbamoL [Robaxin-750] 750 mg PO Q8H 10/21/24 10/21/24 History Allergies Allergy/AdvReac Type Severity Reaction Status Date / Time trazodone AdvReac dizziness Verified 10/21/24 16:11 Physical Exam Vitals: Vital Signs Temp Pulse Resp BP Pulse Ox 10/21/24 13:32 98 F 110 H 18 135/78 98 Intake and Output 10/21/24 10/21/24 10/21/24 06:59 14:59 22:59 Other: Weight 58.967 kg General: Female, appears stated age Derm: warm, dry, there are numerous track mabry seen throughout her bilateral upper extremity Head: atraumatic, normocephalic, symmetric Eyes: EOMI, no lid lag, anicteric sclera, pupils equal round reactive to light ENT: Nose and ears atraumatic, no thrush, no pharyngeal erythema Neck: No thyromegaly, no cervical lymphadenopathy, trachea midline, supple Mouth: no lip lesion, mucus membranes moist Cardiovascular: S1S2 reg, no murmur, positive posterior tibial pulse bilateral, Lungs: clear to ascultation bilateral, no ronchi, no rales, no wheeze, no acce ssory muscle use Abdominal: soft, nontender to palpation, no guarding, no appreciable organomegaly, normal bowel sounds Ext: no gross muscle atrophy, muscle strength muscle strength 5 out of 5 in all 4 extremities, no contractures Neuro: She is moving all extremity spontaneously Psych: Alert, oriented, appropriate affect Results Labs: Abnormal Lab Results - Last 24 Hours (Table) 10/21/24 Range/Units 14:14 U Benzodiazepines Scrn Detected H (NotDetected) U Marijuana (THC) Screen Detected H (NotDetected) Assessment and Plan Assessment: #) Alcohol withdrawal. She reports that she drinks approximate 1 pint per day. Her last drink was this morning. Her CIWA score was noted to be 19 in the ER however upon my review her CIWA score appears to be much lower. We will continue high-dose thiamine multivitamin support and continue monitor CIWA scores and provide as needed oral Ativan. Unfortunately IV access will be a limitation due to her poor vasculature. PICC line may need to be considered during his hospital course however I would like to obtain blood cultures prior to given her history of IV drug use. She is agreeable to naltrexone therapy however I would avoid this given that I will start Suboxone as below #) Heroin use disorder. The patient reports that she injects heroin. Previously on Suboxone 8 mg twice daily. We will start Suboxone 8 mg daily and add Flexeril as needed for muscle spasms and Imodium as needed for diarrhea. Continue Bentyl as needed for abdominal spasms #) Crack use disorder-recommend cessation, supportive care #) Methamphtamine use-recommend cessation, supportive care #) History of subcutanous abscess with noted history of epidural abscess at [facility]. Received 6 weeks of iv vancomycin per patient #) Questionable SI vs attempt. Noted to have taken someone's elses medications that were not medically prescribed. Noted to be having visual hallucinations. Does not have a plan. Suicide precautions. sitter at bedside Dispo: Med/surge dvt ppx: lovenox Time with Patient: Greater than 30
[2024-10-21] MEDS: LORazepam 2 MG/ML INJ IV STA (17:30)
[2024-10-21] MEDS: BUPRENORPHINE-NALOX 8-2 MG TAB 1 EACH TAB.SUBL SL SCH (17:54)
[2024-10-21 18:02] LABS: Basophils % (A) 1 %; Eosinophils # (A) 0.1 k/uL (0-0.7); Eosinophils % (A) 2 %; HCT 37.9 % (34.0-46.0); HGB 12.6 gm/dL (11.4-16.0); Lymphocytes # (A) 2.3 k/uL (1.0-4.8); Lymphocytes % (A) 35 %; MCH 29.8 pg (25.0-35.0); MCHC 33.1 g/dL (31.0-37.0); MCV 90.2 fL (80.0-100.0); Mean Platelet Volume 7.9; Monocytes # (A) 0.3 k/uL (0-1.0); Monocytes % (A) 4 %; Neutrophils # (A) 3.6 k/uL (1.3-7.7); Neutrophils % (A) 56 %; Platelet Count 259 k/uL (150-450); RBC 4.21 m/uL (3.80-5.40); RDW 13.6 % (11.5-15.5); WBC 6.4 k/uL (3.8-10.6)
[2024-10-21 18:02] LABS: ALT 30 U/L (4-34); AST 29 U/L (14-36); African American GFR (CKD) >90 (>60 ml/min/1.73 sqM); Albumin 5.3 g/dL (3.5-5.0); Alkaline Phosphatase 72 U/L (38-126); Anion Gap 15 mmol/L; Blood Urea Nitrogen 14 mg/dL (7-17); Calcium 9.5 mg/dL (8.4-10.2); Carbon Dioxide 21 mmol/L (22-30); Chloride 108 mmol/L (98-107); Glucose 79 mg/dL (74-99); Lipase 508 U/L (23-300); Non-African American GFR(CKD) >90 (>60 ml/min/1.73 sqM); Sodium 144 mmol/L (137-145); Total Bilirubin 0.4 mg/dL (0.2-1.3); Total Protein 9.2 g/dL (6.3-8.2)
[2024-10-21] MEDS: LORazepam 1 MG TAB PO PRN (18:48)
[2024-10-21] MEDS: TOPIRAMATE 100 MG TAB PO SCH (20:45)
[2024-10-21] MEDS: LORazepam 2 MG/ML INJ IV PRN (20:45)
[2024-10-21] MEDS: GABAPENTIN 400 MG CAP PO SCH (21:26)
[2024-10-21] MEDS: ACETAMINOPHEN TAB 325 MG TAB PO PRN (22:48)
[2024-10-22 04:44] LABS: Hepatitis A Antibody IgM Nonreactive (Nonreactive); Hepatitis B Core IgM Nonreactive (Nonreactive); Hepatitis B Surface Antigen Nonreactive (Nonreactive); Hepatitis C IgG Antibody Reactive (Nonreactive)
[2024-10-22 05:22] LABS: HIV 2 AB Non-Reactive (Non-Reactive); HIV AB P24 Non-Reactive (Non-Reactive); HIV P24 AG Non-Reactive (Non-Reactive)
[2024-10-22 06:37] LABS: Basophils % (A) 0 %; Eosinophils # (A) 0.1 k/uL (0-0.7); Eosinophils % (A) 3 %; HCT 34.5 % (34.0-46.0); HGB 11.6 gm/dL (11.4-16.0); Lymphocytes # (A) 1.9 k/uL (1.0-4.8); Lymphocytes % (A) 36 %; MCHC 33.5 g/dL (31.0-37.0); MCV 89.5 fL (80.0-100.0); Mean Platelet Volume 8.4; Monocytes # (A) 0.2 k/uL (0-1.0); Monocytes % (A) 4 %; Neutrophils % (A) 56 %; Platelet Count 193 k/uL (150-450); RBC 3.86 m/uL (3.80-5.40); RDW 13.8 % (11.5-15.5); WBC 5.4 k/uL (3.8-10.6)
[2024-10-22 06:52] LABS: ALT 22 U/L (4-34); AST 30 U/L (14-36); African American GFR (CKD) >90 (>60 ml/min/1.73 sqM); Alkaline Phosphatase 41 U/L (38-126); Anion Gap 5 mmol/L; Blood Urea Nitrogen 16 mg/dL (7-17); Calcium 8.6 mg/dL (8.4-10.2); Carbon Dioxide 24 mmol/L (22-30); Chloride 106 mmol/L (98-107); Glucose 91 mg/dL (74-99); Non-African American GFR(CKD) >90 (>60 ml/min/1.73 sqM); Sodium 135 mmol/L (137-145); Total Bilirubin 0.7 mg/dL (0.2-1.3); Total Protein 7.1 g/dL (6.3-8.2)
[2024-10-22 06:54] LABS: Potassium 4.3 mmol/L (3.5-5.1)
[2024-10-22] MEDS: PRAMIPEXOLE 0.25 MG TAB PO SCH (08:45)
[2024-10-22] MEDS: THIAMINE 100 MG TAB PO SCH (08:45)
[2024-10-22] MEDS: ENOXAPARIN 40 MG/0.4 ML SYRINGE SQ SCH (08:47)
[2024-10-22] MEDS: DOXEPIN 25 MG CAP PO SCH (08:49)
[2024-10-22] MEDS: LORazepam 0.5 MG TAB PO PRN (09:07)
--- NOTE | 2024-10-22 09:58 | CT ---
EXAMINATION TYPE: CT abdomen pelvis w con DATE OF EXAM: 10/22/2024 9:35 AM COMPARISON: 05/14/2018 CLINICAL INDICATION: Female, 34 years old with history of evaluate for pancreatitis/ abd pain, Lower back pain, TECHNIQUE: Contiguous axial scanning of the abdomen and pelvis following administration of 100 ml Iso angelina 300 IV contrast. Delayed images through the kidneys and coronal/sagittal reconstructions perform ed. CT DLP: 819.6 mGycm, Automated exposure control for dose reduction was used. FINDINGS: Mild generalized anasarca change. Heart normal size without pericardial effusion. Lung bases clear without pleural effusion. There is a moderate-sized hiatal hernia present film with ingested debris. Postsurgical change appear s to reflect previously sleeve gastrectomy. No focal liver lesion or biliary ductal dilatation. Portal venous system is patent. Adrenal glands, right kidney, and pancreas within normal limits. Status post cholecystectomy. Spleen borderline in size at 13.1 cm. Left kidney shows a 1.2 cm calcification at the lateral midpole . No hydronephrosis on either side. No dilated small bowel, free fluid, or free air. No mesenteric or retroperitoneal lymphadenopathy. Scattered mild to moderate stool. No pericolonic inflammatory change. Normal appendix. Mild/moderate circumferential bladder wall thickening. A number of pelvic phleboliths. Uterus antever dorian. Ovaries are obscured by adjacent clustered bowel loops. Abnormal fluid collection in the pelvis or pelvic lymphadenopathy. Bones: There is moderate degenerative disc disease at L5-S1 along with hypertrophic facet arthropathy mid to lower lumbar spine. Additional mild to moderate degenerative disc disease lower thoracic spin e. IMPRESSION: 1. MILD ANASARCA CHANGES; CORRELATE FOR SIGNS OF THIRD SPACING. 2. MILD TO MODERATE CIRCUMFERENTIAL BLADDER WALL THICKENING. CORRELATE TO EXCLUDE CYSTITIS. 3. MODERATE SIZED HIATAL HERNIA. Patient with previously sleeve gastrectomy. Stomach is distended wit h ingested debris. 4. Nonobstructive 1.2 cm left renal stone. 5. No overt CT findings of acute pancreatitis. Note that mild acute pancreatitis may not be detected by CT. [facility], , 10/22/2024 9:56 AM
--- NOTE | 2024-10-22 12:41 | P.PN ---
Subjective Progress Note Date: 10/22/24 Principal diagnosis: Adelita sent to the hospital on October 21 for what appears to be a suicide attempt. She had autonomously taken someone else's medications is unclear if the patient had taken these medications in an attempt to commit suicide. She was medically admitted given polysubstance use withdrawal. Noted to receive IV Ativan overnight. Tolerating Suboxone Objective - Vital Signs Vital signs: Vital Signs Temp 97.6 F 10/22/24 06:31 Pulse 102 H 10/22/24 10:42 Resp 18 10/22/24 10:42 BP 128/82 10/22/24 10:42 Pulse Ox 99 10/22/24 10:42 FiO2 Intake & Output 10/21/24 10/22/24 10/22/24 18:59 06:59 18:59 Weight 58.967 kg 58.967 kg - Exam General: Female, appears stated age Derm: warm, dry, there are numerous track mabry seen throughout her bilateral upper extremity Head: atraumatic, normocephalic, symmetric Eyes: EOMI, no lid lag, anicteric sclera, pupils equal round reactive to light ENT: Nose and ears atraumatic, no thrush, no pharyngeal erythema Neck: No thyromegaly, no cervical lymphadenopathy, trachea midline, supple Mouth: no lip lesion, mucus membranes moist Cardiovascular: S1S2 reg, no murmur, positive posterior tibial pulse bilateral, Lungs: clear to ascultation bilateral, no ronchi, no rales, no wheeze, no accessory muscle use Abdominal: soft, nontender to palpation, no guarding, no appreciable organ omegaly, normal bowel sounds Ext: no gross muscle atrophy, muscle strength muscle strength 5 out of 5 in all 4 extremities, no contractures Neuro: She is moving all extremity spontaneously Psych: Alert, oriented, appropriate affect - Labs CBC & Chem 7: 10/22/24 06:24 10/22/24 06:24 Labs: Abnormal Lab Results - Last 24 Hours (Table) 10/21/24 10/21/24 10/21/24 Range/Units 14:14 17:12 17:12 Sodium (137-145) mmol/L Chloride 108 H (98-107) mmol/L Carbon Dioxide 21 L (22-30) mmol/L Total Protein 9.2 H (6.3-8.2) g/dL Albumin 5.3 H (3.5-5.0) g/dL Lipase 508 H (23-300) U/L U Benzodiazepines Scrn Detected H (NotDetected) U Marijuana (THC) Screen Detected H (NotDetected) Hep C IgG Ab Reactive A (Nonreactive) 10/22/24 Range/Units 06:24 Sodium 135 L (137-145) mmol/L Chloride (98-107) mmol/L Carbon Dioxide (22-30) mmol/L Total Protein (6.3-8.2) g/dL Albumin (3.5-5.0) g/dL Lipase (23-300) U/L U Benzodiazepines Scrn (NotDetected) U Marijuana (THC) Screen (NotDetected) Hep C IgG Ab (Nonreactive) Assessment and Plan Assessment: #) Alcohol withdrawal. She reports that she drinks approximate 1 pint per day. Her last drink was this morning. CIWA scores do not appear to be elevated upon my evaluation. Continue CIWA with as needed oral Ativan. Continue multivitamin thiamine support #) Heroin use disorder. The patient reports that she injects heroin. Previously on Suboxone 8 mg twice daily. Continue Suboxone 8 mg daily. Continue Imodium as needed for diarrhea and Flexeril as needed for muscle spasms #) Crack use disorder-recommend cessation, supportive care #) Methamphtamine use-recommend cessation, supportive care #) History of subcutanous abscess with noted history of epidural abscess at [place]. Received 6 weeks of iv vancomycin per patient #) Questionable SI vs attempt. Noted to have taken someone's elses medications that were not medically prescribed. Noted to be having visual hallucinations. Does not have a plan. Suicide precautions. sitter at bedside Dispo: Med/surge dvt ppx: lovenox Time with Patient: Greater than 30
[2024-10-22] MEDS: LORazepam 2 MG/ML INJ IV PRN (13:35)
[2024-10-22] MEDS: chlordiazePOXIDE 25 MG CAP PO STA (13:43)
[2024-10-22] MEDS ORDERED: OLANZapine 5 MG TAB PO PRN (13:51)
[2024-10-22] MEDS ORDERED: DOXEPIN 25 MG CAP PO PRN (13:52)
--- NOTE | 2024-10-22 13:59 | P.CN ---
Psychiatric Consult - . Consult date: 10/22/24 Consult:: 10/22/24 13:11 IDENTIFYING DATA: This patient is a 34-year-old female significant history of polysubstance abuse presents to the hospital HISTORY OF PRESENT ILLNESS: The patient presented to the hospital yesterday on 10/21, has been recently discharged from the hospital for dealing with different infections polysubstance abuse. Patient apparently relapsed back on drug use, also using alcohol. Was endorsing depression and suicidal ideations, was admitted medically for alcohol withdrawal. Patient was seen today near the hallways in the ER, she was tearful, crying and appeared to be agitated and paranoid. She was agreeable to speak to commercial lines underwriter today at the bedside. She was very paranoid with commercial lines underwriter believes that he was going to "hurt me" in the room. She was crying and sobbing throughout most of the interview. She was alert and oriented x 3. She believes that she is "losing my mind" and when asked further about that she did not explain and states "I do not know". Claims that she was in the hospital for 2 months in [place] however did not state what she was getting treatment for. Also claims that she has been admitted psychiatrically as well. Claims that she is hearing voices telling her to harm herself. She was responding to internal stimuli looking around the room. When asked about suicidal thoughts initially she stated yes she does want to end her life then she answered again later on states that she is not having suicidal thoughts, denies any homicidal ideations. Thoughts were bizarre, disorganized, poor hygiene and grooming, disheveled appearance. She is denying any other current recreational drug use except for alcohol at this time and also cigarettes. Patient's urine drug screen is positive for benzodiazepines and THC, she has a history of significant polysubstance abuse including methamphetamine and opiate abuse and also crack cocaine use. Patient was a poor historian, gave little information further during the interview. PAST PSYCHIATRIC HISTORY: Was unable to give many specifics of her psychiatric history however according to previous consultation note. The patient has a history of depression, anxiety, and polysubstance abuse including methamphetamine use disorder, opiate use disorder, and other psychoactive substance use disorders. Patient was last admitted onto our psychiatric unit in February 2022 and was discharged on a regimen of Lexapro, Neurontin, Seroquel, and prazosin. The patient has had at least 10 psychiatric inpatient admissions since 2016. Patient is nonadherent with any and all outpatient follow-up. PAST MEDICAL HISTORY: As per ED note ALLERGIES: Trazodone CHEMICAL DEPENDENCY HISTORY: As per HPI FAMILY PSYCHIATRIC/SUBSTANCE USE HISTORY: Patient's sister reportedly by overdose. The patient's father abused cocaine. The patient's mother also is reportedly and abused multiple substances as well. SOCIAL HISTORY: Patient was born and raised in [place]. She claims that she is homeless. She completed high school. Currently unemployed MENTAL STATUS EXAM: General Appearance: Patient appears to be stated age is alert, cooperative, emotional, disheveled appearance. Patient appears to have very disheveled hygien e and grooming wearing hospital gown with fair eye contact. Mulitple tattoos Behavior: Patient is sitting in her chair, tearful sobbing, uncooperative Speech: Patient's speech is fluent and nonpressured. Poverty of content evasive Mood/Affect: Patient reports their mood is "upset", affect is labile, tearful and congruent Suicidality/Homicidality: Patient stating that she is having suicidal thoughts, denies any homicidal ideation. Perceptions: Patient denies any visual hallucinations, she is endorsing auditory hallucinations telling her to harm herself Though content/process: Patient was delusional, paranoid about commercial lines underwriter. Bizarre disorganized. Memory and concentration: AOX3, grossly intact for the purposes of this session. Cannot spell "WORLD" backwards Judgment and insight: chronically Poor/impulsive IMPRESSIONS: bipolar disorder, current episode depressed Generalized anxiety disorder cannabis use disorder alcohol use disorder severe dependence, currently in withdrawal Hx of Polysubstance abuse including cocaine, benzodiazepines, opiates, and other psychoactive substances PLAN: -At this time patient DOES meet criteria for inpatient psychiatric admission. -Patient DOES NOT have decision making capacity at this time and is unable to reason through and communicate/appreciate the risks, benefits and alternatives to treatment. -Would recommend the following medication changes/additions: Start Librium 25 mg 3 times daily for alcohol withdrawal, plan to taper. Zyprexa as needed for severe agitation or psychosis. Doxepin 75 mg nightly as needed for insomnia. -CIWA protocol with PRN Ativan for alcohol withdrawal. Continue to monitor vital signs. -Continue 1:1 sitter for safety until patient is safely transferred to the mental health unit -Cannot leave AMA at this time. Patient will need a petition and certification if attempting to leave AMA. -When medically stable, patient is eligible for transfer to a psych bed when available. -Communicated plan to patient's nurse -Psychiatry will sign off at this time -Please contact with any questions. 10/22/24 13:52
[2024-10-22] MEDS: chlordiazePOXIDE 25 MG CAP PO SCH (16:22)
[2024-10-22] MEDS ORDERED: DOXEPIN 25 MG CAP PO SCH (21:00)
[2024-10-23] MEDS: DICYCLOMINE 10 MG CAP PO PRN (09:33)
--- NOTE | 2024-10-23 10:50 | P.DS ---
Providers Date of admission: 10/21/24 16:14 Attending physician: Ivette Mcnamara MD Consults: 10/21/24 16:14 Consult Physician Routine Consulting Provider: Psychiatry - [facility] Psych[facility]ry Consult Reason/Comments: suicidal Do you want consulting provider notified?: Already Contacted Primary care physician: Stated None Hospital Course: Adelita is a 34-year-old female with past medical history of crack, meth and phentermine, heroin, recent epidural abscess and alcohol use disorder. The patient had presented to hospital on October 21 for unclear reasons. It appears the patient had a suicide attempt by ingesting unknown medications. She was noted to be withdrawing from alcohol and withdrawing from heroin. She was started on Suboxone 8 mg daily and she was started on Librium with as needed oral Ativan. She had blood cultures obtained given her recent epidural abscess which were negative. She had complained of no back pain. Her lipase was noted to be [address] abdomen pelvis which had revealed no abscess in addition had revealed no evidence of pancreatitis. The patient was then discharged to inpatient behavioral health on October 23 Assessment: #) Alcohol withdrawal. She reports that she drinks approximate 1 pint per day. Continue Librium 25 mg 3 times daily, continue thiamine supplementation. Alcohol withdrawal recommended #) Heroin use disorder. The patient reports that she injects heroin. Previously on Suboxone 8 mg twice daily. Continue Suboxone 8 mg daily. Monitor for diarrhea. Flexeril as needed for muscle spasms #) Crack use disorder-recommend cessation, supportive care #) Methamphtamine use-recommend cessation, supportive care #) History of subcutanous abscess with noted history of epidural abscess at [place]. Received 6 weeks of iv vancomycin per patient, repeat blood cultures from October 21 are negative. She denies any lower back pain #) Questionable SI vs attempt. Noted to have taken someone's elses medications that were not medically prescribed. To be discharged to inpatient behavioral health Patient Condition at Discharge: Fair Plan - Discharge Summary Discharge Rx Participant: No New Discharge Prescriptions: New Cyclobenzaprine [Flexeril] 5 mg PO TID PRN tab PRN Reason: Mild Spasms Buprenorphine-Nalox 8-2 mg Tab [Suboxone 8-2 mg Tab] 1 each SL DAILY@1800 tab Thiamine [Vitamin B-1] 100 mg PO DAILY tab chlordiazePOXIDE HCl [Librium] 25 mg PO TID cap OLANZapine [ZyPREXA] 5 mg PO Q6HR PRN tab PRN Reason: agitation/psychosis Continue Gabapentin [Neurontin] 1,200 mg PO TID Topiramate [Topamax] 100 mg PO BID Pramipexole [Mirapex] 0.25 mg PO DAILY Doxepin HCl [SINEquan] 75 mg PO DAILY Dicyclomine [Bentyl] 10 mg PO QID Ondansetron [Zofran] 4 mg PO Q6H PRN PRN Reason: Nausea Discontinued Loperamide [Imodium] 2 mg PO Q4H PRN PRN Reason: Diarrhea methocarbamoL [Robaxin-750] 750 mg PO Q8H Discharge Medication List Dicyclomine [Bentyl] 10 mg PO QID 10/21/24 [History] Doxepin HCl [SINEquan] 75 mg PO DAILY 10/21/24 [History] Gabapentin [Neurontin] 1,200 mg PO TID 10/21/24 [History] Ondansetron [Zofran] 4 mg PO Q6H PRN 10/21/24 [History] Pramipexole [Mirapex] 0.25 mg PO DAILY 10/21/24 [History] Topiramate [Topamax] 100 mg PO BID 10/21/24 [History] Buprenorphine-Nalox 8-2 mg Tab [Suboxone 8-2 mg Tab] 1 each SL DAILY@1800 tab 10/23/24 [Rx] Cyclobenzaprine [Flexeril] 5 mg PO TID PRN tab 10/23/24 [Rx] OLANZapine [ZyPREXA] 5 mg PO Q6HR PRN tab 10/23/24 [Rx] Thiamine [Vitamin B-1] 100 mg PO DAILY tab 10/23/24 [Rx] chlordiazePOXIDE HCl [Librium] 25 mg PO TID cap 10/23/24 [Rx] Follow up Appointment(s)/Referral(s): None,Stated [Primary Care Provider] - 1-2 days Discharge/Stand Alone Forms: AA Meetings [place], Community Resources, Outpatient Counseling, Inp Substance Abuse Facilities, Area PCPs Discharge Disposition: TRANSFER TO PSYCH HOSP/UNIT
[2024-10-23 13:08] VITALS: TEMP 98
[2024-10-23] MEDS: LACTULOSE 20 GM/30 ML CUP PO ONE (13:29)
[2024-10-23 18:34] VITALS: BP 136/80; PULSE 94; RESP 17
== END 2024-10-23 19:05 | DRG 773 ==
LOC: EC 13:22 → 3SCARD 16:14
PROVIDERS: ADMIT Family Medicine; ATTEND Family Medicine
PROC: HZ2ZZZZ Detoxification Services for Substance Abuse Treatment (ICD-10-PCS; principal; 2024-10-21)
DX: F10.239 Alcohol dependence with withdrawal, unspecified (principal); B19.20 Unspecified viral hepatitis C without hepatic coma; F11.23 Opioid dependence with withdrawal; F12.10 Cannabis abuse, uncomplicated; F41.0 Panic disorder [episodic paroxysmal anxiety]; Z11.52 Encounter for screening for COVID-19; F41.1 Generalized anxiety disorder; G43.909 Migraine, unspecified, not intractable, without status migrainosus; G40.909 Epilepsy, unspecified, not intractable, without status epilepticus; R45.851 Suicidal ideations; F31.30 Bipolar disorder, current episode depressed, mild or moderate severity, unspecified; F17.210 Nicotine dependence, cigarettes, uncomplicated; Z79.899 Other long term (current) drug therapy; Z56.0 Unemployment, unspecified; Z88.5 Allergy status to narcotic agent; Z98.84 Bariatric surgery status; Z71.51 Drug abuse counseling and surveillance of drug abuser; Z71.41 Alcohol abuse counseling and surveillance of alcoholic
CPT/HCPCS: 74177; 80053; 80074; 80306; 81025; 82075; 83690; 83735; 85025; 86780; 87040; 87390; 87635; 96372; 96374; 96376; 99285

== ENCOUNTER 2024-10-23 18:06 | Inpatient (IN) | payer MEDICAID ==
[2024-10-23] MEDS ORDERED: HALOPERIDOL LACTATE 5 MG/ML 1 ML VIAL IM PRN (18:18)
[2024-10-23] MEDS: TOPIRAMATE 100 MG TAB PO SCH (20:23)
[2024-10-23] MEDS: chlordiazePOXIDE 25 MG CAP PO SCH (20:23)
[2024-10-23] MEDS: GABAPENTIN 400 MG CAP PO SCH (20:23)
[2024-10-23] MEDS: DICYCLOMINE 10 MG CAP PO SCH (20:24)
[2024-10-23 21:32] LABS: Appearance,Urine Clear (Clear); Bacteria,Urine Rare /hpf; Bilirubin,Urine Negative (Negative); Blood,Urine Small (Negative); Color,Urine Colorless; Glucose,Urine (UA) Negative (Negative); Ketones,Urine Negative (Negative); Leukocyte Esterase,Urine Trace (Negative); Nitrite,Urine Negative (Negative); PH, Urine 6.5 (5.0-8.0); Protein,Urine Negative (Negative); RBC,Urine 4 /hpf (0-5); Squamous Epithelial Cell,Urine 4 /hpf (0-4); Urobilinogen,Urine <2.0 mg/dL (<2.0); WBC,Urine 14 /hpf (0-5)
[2024-10-23] MEDS: haloperidoL 5 MG TAB PO PRN (21:50)
[2024-10-23] MEDS: LORazepam 1 MG TAB PO PRN (21:50)
[2024-10-24] MEDS: THIAMINE 100 MG TAB PO SCH (08:35)
[2024-10-24] MEDS: NICOTINE 14MG/24HR PATCH TRANSDERM SCH (08:35)
[2024-10-24] MEDS: PRAMIPEXOLE 0.25 MG TAB PO SCH (08:35)
[2024-10-24] MEDS: DOXEPIN 25 MG CAP PO SCH (08:35)
[2024-10-24] MEDS: FOLIC ACID 1 MG TAB PO SCH (08:35)
[2024-10-24] MEDS: MULTIVITAMINS, THERA 1 EACH TAB PO SCH (08:35)
[2024-10-24] MEDS ORDERED: BUPRENORPHINE NALOX SUBLINGUAL SCH ×2 (09:00→18:00)
[2024-10-24] MEDS: BUPRENORPHINE-NALOX 8-2 MG TAB 1 EACH TAB.SUBL SL SCH (09:05)
[2024-10-24 13:45] LABS: Chol/HDL Ratio 1.84 Ratio; LDL Cholesterol,Calculated 45.6 mg/dL (0.0-131.0); VLDL Calculation 17.28 mg/dL (5.00-40.00)
[2024-10-24] MEDS: MAGNESIUM HYDROXIDE 2,400 MG/30 ML CUP PO PRN (14:03)
--- NOTE | 2024-10-24 14:10 | P.CONS ---
History of Present Illness - Reason for Consult Consult date: 10/24/24 Medical management Requesting physician: Isabel Werner - Chief Complaint Suicidal ideation - History of Present Illness Adelita is a 34-year-old female with past medical history of crack, methamphetamine, heroin, alcohol use disorder and history of epidural abscess Of note the patient was medically admitted from October 21 to October 23. At that time the patient had elevated CIWA scores was started on Librium received Ativan and her CIWA scores improved in addition she was started Suboxone given her heroin use disorder. Past Medical History Past Medical History: Liver Disease, Renal Disease, Seizure Disorder, Supraventricular Tachycardia (SVT) Additional Past Medical History / Comment(s): SVT with cardiac ablation, lumbar DDD, bulging lumbar disc, ETOH abuse, alcohol withdrawals, pt states she has a seizure disorder and has alcohol withdrawal seizures with last seizure in 2020, drug abuse/pt states IV drug abuse, hepatitis C, lumbar DDD/bulging discs, migraines, sinus problems, past bilateral arm fractures/casted, past broken left ankle and leg/casted, ruptured spleen with surgery. History of Any Multi-Drug Resistant Organisms: ESBL Year Discovered:: 01/17/22 MDRO Source:: ESBL URINE Past Surgical History: Bariatric Surgery, Cardiac Ablation, EPS, Orthopedic Surgery Additional Past Surgical History / Comment(s): Cardiac ablation for SVT, gastric sleeve, spleen repair, I&D L wrist. Past Anesthesia/Blood Transfusion Reactions: No Reported Reaction Additional Past Anesthesia/Blood Transfusion Reaction / Comm: Pt has clausterphobia. Past Psychological History: Anxiety, Bipolar, Depression, Panic Disorder Additional Psychological History / Comment(s): Pt states she has depression. Pt states her sister of an overdose on 02/08/22 on fentanyl. She states her mother also overdosed on fentanyl a few years ago. Pt states she is currently homeless but is open to some type of help. Smoking Status: Current every day smoker, Vaper Past Alcohol Use History: Daily Additional Past Alcohol Use History / Comment(s): Pt started smoking in 2004 and is a 1 ppd smoker. Past Drug Use History: Cocaine, Heroin, IV Drug Use, Marijuana, Methamphetamine, Opiates, Prescription Drug Abuse Additional Drug Use History / Comment(s): Pt states she uses meth, fentanyl, cocaine and alcohol. - Past Family History Father History Unknown: Yes Family Medical History: COPD, Diabetes Mellitus Mother History Unknown: Yes Family Medical History: Asthma Additional Family Medical History / Comment(s): pt reports mother had cyclic vomiting issues, substance abuse history Sister(s) Family Medical History: Supraventricular Tachycardia (SVT) Additional Family Medical History / Comment(s): Sister had SVT. She is recently from overdose. Medications and Allergies Home Medications Medication Instructions Recorded Confirmed Type Dicyclomine [Bentyl] 10 mg PO QID 10/21/24 10/23/24 History Doxepin HCl [SINEquan] 75 mg PO DAILY 10/21/24 10/23/24 History Gabapentin [Neurontin] 1,200 mg PO TID 10/21/24 10/23/24 History Ondansetron [Zofran] 4 mg PO Q6H PRN 10/21/24 10/23/24 History Pramipexole [Mirapex] 0.25 mg PO DAILY 10/21/24 10/23/24 History Topiramate [Topamax] 100 mg PO BID 10/21/24 10/23/24 History Buprenorphine-Nalox 8-2 mg Tab 1 each SL DAILY@1800 tab 10/23/24 10/23/24 Rx [Suboxone 8-2 mg Tab] Cyclobenzaprine [Flexeril] 5 mg PO TID PRN tab 10/23/24 10/23/24 Rx OLANZapine [ZyPREXA] 5 mg PO Q6HR PRN tab 10/23/24 10/23/24 Rx Thiamine [Vitamin B-1] 100 mg PO DAILY tab 10/23/24 10/23/24 Rx chlordiazePOXIDE HCl [Librium] 25 mg PO TID cap 10/23/24 10/23/24 Rx Allergies Allergy/AdvReac Type Severity Reaction Status Date / Time trazodone AdvReac dizziness Verified 10/23/24 20:48 Physical Exam Vitals: Vital Signs Temp Pulse Resp BP Pulse Ox 10/24/24 11:58 129 H 20 110/76 10/24/24 06:44 97.9 F 100 18 113/73 98 10/23/24 20:53 98.6 F 88 22 122/65 98 10/23/24 20:51 98.6 F 88 22 122/65 98 Intake and Output 10/23/24 10/24/24 10/24/24 22:59 06:59 14:59 Other: Weight 77.791 kg General: non toxic, no distress, male, appears older than stated age Derm: warm, dry Head: atraumatic, normocephalic, symmetric Eyes: EOMI, no lid lag, anicteric sclera, pupils equal round reactive to light ENT: Nose and ears atraumatic, no thrush, no pharyngeal erythema Neck: No thyromegaly, no cervical lymphadenopathy, trachea midline, supple Mouth: no lip lesion, mucus membranes moist Cardiovascular: S1S2 reg, no murmur, positive posterior tibial pulse bilateral, no edema, capillary refill less than 2 seconds Lungs: clear to ascultation bilateral, no ronchi, no rales, no wheeze, no accessory muscle use Abdominal: soft, nontender to palpation, no guarding, no appreciable organomegaly, normal bowel sounds Ext: Track mabry seen on bilateral upper extremities Neuro: Moving all extremity spontaneously Psych: Calm Results Labs: Abnormal Lab Results - Last 24 Hours (Table) 10/23/24 10/24/24 Range/Units 21:00 06:27 HDL Cholesterol 75.10 H (40.00-60.00) mg/dL Urine Blood Small H (Negative) Ur Leukocyte Esterase Trace H (Negative) Urine WBC 14 H (0-5) /hpf Urine Bacteria Rare H (None) /hpf Assessment and Plan Assessment: #) ETOh withdrawal, appears stable. decrease librium from 25 mg TID to 10 mg TID for more day. Can continue checking ciwa scores and use prn ativan for 2 more days. continue mvi/thiamine support #) Heroin use dz- I had started her on suboxone 8 mg daily on 10/21. She reports that it helps with her withdrawal. She would like the dose increased but unfortunately pharmacy does not carry higher doses. Suboxone will need to be prescribed once she is discharged from behavioral health- may consider discharging her on 8 mg suboxone films #) Cocaine crack use dz- recommend cessation #) Methamphtamine use- recommend cessation #) [place] [facility] [place]. denies any back pain. recommend refraining from further recreational drug use Thank you for allowing us to participate in the care of this patient. We will follow peripherally. Do not hesitate to contact us with questions. Someone can be reached from the [facility] hospitalist group at all hours of the day at [phone]. Time with Patient: Greater than 30
--- NOTE | 2024-10-24 19:45 | P.HP ---
Psychiatric H&P - . History & Physical: IDENTIFYING DATA: Patient is a 34 year old woman with polysubstance abuse HPI: Adelita Cota is a 34 year old woman with a history of polysubstance abuse and associated medical problems who presented to the ER on 10/21/24 and was admitted for alcohol withdrawal management. A psychiatry consult was requested and recommendations were made for her to transition to the inpatient psychiatric unit once she was medically stable. Ms. Cota was seen today for evaluation following her admission to the unit overnight. When asked about the circumstances that precipitated her admission she stated "I think I am ". She then became very tearful and said that she was feeling "confused" because she was not sure about some of the details leading up to her admission. She recalls having recently been in an outside hospital getting treatment for skin abscesses related to substance misuse. She subsequently discharged to her aunts house where she ended up returning to alcohol use, drink a couple pints, "took some pills" and ended up back in the emergency department at this hospital. She describes having "derealization feeling" for the last week in which she is unsure whether she is alive or real or whether the things happening around her are real. She describes feeling anxious and worried that she is not able to "do the right thing" and endorses experiencing panic symptoms on a daily basis. She describes having had a history of trauma and has both nightmares and flashbacks; she is unable to quantify the frequency at this time but does recall having taken prazosin in the past which was helpful. Regards to other symptoms she endorses having auditory hallucinations before admission that were very negative and seem to be people's mean thoughts about her. She also described having "paranoid thoughts" but this seems to have improved. She denies experiencing visual hallucinations. She reports having suicidal ideation because she "did not know what to do" and denies any identified method intent or plan. She also denies homicidal ideation, intent, or plan. PAST PSYCHIATRIC HISTORY: Per review of record with as many contributions from the patient is possible, though these were limited by her present condition. Has a history of polysubstance abuse including alcohol use disorder opioid use disorder methamphetamine use disorder, depression, anxiety and PTSD. She last had an inpatient psych admission this hospital in February 2022 and was discharged on Seroquel 75 mg daily, gabapentin, Lexapro 20 mg daily, and prazosin. Per review of records the patient has had greater than 10 inpatient psychiatric admissions since 2016. Patient does not routinely engage in outpatient follow- up. PMH: as per ER note CHEMICAL DEPENDENCY HISTORY: as per HPI FAMILY PSYCHIATRIC/SUBSTANCE USE HISTORY: Extensive family history of substance misuse. Her maternal grandmother and cousin by suicide. SOCIAL HISTORY: Patient was born and raised in [place]. She presently has a public guardian. She hoping to reside at [facility] soon for rehab. She denies access to firearms. She does not have any children. Allergies Allergy/AdvReac Type Severity Reaction Status Date / Time trazodone AdvReac dizziness Verified 10/23/24 20:48 Vital Signs Temp 97.9 F 10/24/24 06:44 Pulse 100 10/24/24 06:44 Resp 18 10/24/24 06:44 BP 113/73 10/24/24 06:44 Pulse Ox 98 10/24/24 06:44 FiO2 Intake & Output 10/23/24 10/24/24 10/24/24 18:59 06:59 18:59 Weight 58.967 kg 77.791 kg Laboratory Last Values TSH 1.750 mIU/L (0.465-4.680) 10/24/24 06:27 Urine Color Colorless 10/23/24 21:00 Urine Appearance Clear (Clear) 10/23/24 21:00 Urine pH 6.5 (5.0-8.0) 10/23/24 21:00 Ur Specific [place] 1.020 (1.001-1.035) 10/23/24 21:00 Urine Protein Negative (Negative) 10/23/24 21:00 Urine Glucose (UA) Negative (Negative) 10/23/24 21:00 Urine Ketones Negative (Negative) 10/23/24 21:00 Urine Blood Small (Negative) H 10/23/24 21:00 Urine Nitrite Negative (Negative) 10/23/24 21:00 Urine Bilirubin Negative (Negative) 10/23/24 21:00 Urine Urobilinogen <2.0 mg/dL (<2.0) 10/23/24 21:00 Ur Leukocyte Esterase Trace (Negative) H 10/23/24 21:00 Urine RBC 4 /hpf (0-5) 10/23/24 21:00 Urine WBC 14 /hpf (0-5) H 10/23/24 21:00 Ur Squamous Epith Cells 4 /hpf (0-4) 10/23/24 21:00 Urine Bacteria Rare /hpf (None) H 10/23/24 21:00 MENTAL STATUS EXAM: General Appearance: Patient appears to be older than stated age is alert, directable, and attempts to cooperate. Patient appears to have poor hygiene and grooming. Behavior: Patient is seated without any agitated behavior. Speech: Patient's speech is fluent and nonpressured. Mood/Affect: Patient reports their mood is confused", affect is labile and tearful Suicidality/Homicidality: Patient denies having any homicidal ideation intent or plan. Endorses suicidal ideation, but denies identified method, intent, or plan Perceptions: Patient denies any visual hallucinations and denies any auditory hallucinations at this time though did experience auditory hallucinations before admission Though content/process: Thought process is somewhat disorganized and tangential. No overt delusional thought content though patient does report experiencing "derealization" and some paranoia.. Memory and concentration: Unable to spell the word world backwards. Not oriented to date. Judgment and insight: Poor STRENGTHS/WEAKNESSES: strength is that patient is resilient. Weakness is that patient has poor judgment and is impulsive INTELLECT: Average IMPRESSIONS: Unspecified depressive disorder (consider substance-induced depression) Alcohol use disorder, severe, presently in withdrawal Cannabis use disorder Polysubstance Abuse (cocaine, benzodiazepines, opioids, and other substances) PLAN: -Patient is admitted under voluntary status to MHU for stabilization of psychiatric symptoms and safety. Patient has not signed adult voluntary form and medication consent and is placed in patient's chart. A second certification was completed and along with petition will be filed for court. -Medications: - Restart escitalopram 10 mg daily for mood and anxiety - Start Prazosin 1 mg at bedtime for trauma-related nightmares - Currently on Topiramate for migraine prophylaxis and Mirapex - Will reassess whether antipsychotic is indicated; patient appears to be actively withdrawing from substances which may have precipitated the experiences of "derealization" she describes -Ativan and Haldol PRN for agitation/aggression -Started thiamine, MVM for etoh use -CIWA protocol with Ativan PRN for ETOH withdrawal. Scheduled Librium for alcohol withdrawal with plan to taper. -Patient was counselled on substance abuse and desired to cut back on use -Patient was informed of the risks, benefits and side effects of the medication and patient verbally consented to taking the medications. Patient signed med consent form and was placed in chart. -Internal Medicine consult to perform medical evaluation and physical. -NRT -nicotine patch -SW on board for discharge planning. Encourage patient to participate in groups to work on coping skills.
[2024-10-24] MEDS: PRAZOSIN 1 MG CAP PO SCH (19:53)
[2024-10-24] MEDS: LORazepam 1 MG TAB PO PRN (19:53)
[2024-10-25] MEDS: ESCITALOPRAM 10 MG TAB PO SCH (08:01)
[2024-10-25] MEDS ORDERED: GABAPENTIN 400 MG CAP PO SCH (13:27)
--- NOTE | 2024-10-25 13:57 | P.PN ---
Progress Note - Text Interval History: Patient was seen resting in bed and was directable and agreeable to speak with typewriter ribbon winder in the office. She describes her mood as "confused" in feels very drowsy today. She endorses sleeping well overnight and was oriented to person and place. She was unsure about today's date. At this time patient denies any suicidal or homicidal ideations, intent, or plan. Patient denies any auditory hallucinations and denies any paranoia or delusions. Patient does report seeing "bugs/animals" on her bedsheets last night but not at this time. In the last 24 hours CIWA scores were 8, 8, 8, 7, 8. Patient received multiple doses of symptom-triggered Ativan. MENTAL STATUS EXAM: General Appearance: Patient appears to be older than stated age is alert, directable, and attempts to cooperate. Patient appears to have poor hygiene and grooming. Behavior: Patient is seated without any agitated behavior. Gait is unsteady. Speech: Patient's speech is fluent and nonpressured. Mood/Affect: Patient reports their mood is "confused", affect is congruent and constricted. Suicidality/Homicidality: Patient denies having any homicidal ideation intent or plan. Denies suicidal ideation, identified method, intent, or plan Perceptions: Patient denies any visual hallucinations and denies any auditory hallucinations at this time though did experience auditory hallucinations before admission Though content/process: Thought process is tangential. No overt delusional thought content today. Memory and concentration: Oriented to person and place. Judgment and insight: Poor Assessment: Unspecified depressive disorder (consider substance-induced depression) Alcohol use disorder, severe, presently in withdrawal, improving Cannabis use disorder Polysubstance Abuse (cocaine, benzodiazepines, opioids, and other substances) Adelita Cota is a 34 year old woman with a history of polysubstance abuse who was transitioned to the inpatient psychiatric unit following a brief medical admission for management of alcohol withdrawal. During today's evaluation she was notably drowsy and continues to describe feeling "confused." She was linda ented to person and place. Additionally, her gait was slow and appeared somewhat unsteady. All of the above increased concern for over-sedation from her present medication regimen. While patient has previously been on Gabapentin, this has not recently been refilled (per review of external pharmacy records and [facility]). As such, will plan a taper to decrease and discontinue; this medication was started 10/21, so it has been a short duration. Will also discontinue Bentyl; this was started due to concern for possible opioid withdrawal symptoms while patient was medically admitted. This medication can have anticholinergic/SPOUT [employer]ER [employer]PER depressant effects, and patient is presently on Suboxone, so withdrawal is not anticipated at this time. Also discontinued Mirapex. Ms. Cota reports having headaches and was started on Topiramate during her medical admission; will continue for now due to potential benefit as an anti-epileptic drug given concurrent alcohol withdrawal symptoms and gabapentin discontinuation. Continuing planned Librium taper to further decrease SP[employer]ER [employer]PER depression and excessive sedation. Discussed this with nursing staff who will continue their assessments and CIWA protocol for evaluation and management of alcohol withdrawal symptoms. Given that Ms. Cota is greater than 96 hours since her last drink, we should expect a decrease in CIWA scores and evidence of clinical improvement. PLAN: -Patient is admitted under voluntary status to MHU for stabilization of psychiatric symptoms and safety. Patient has signed adult voluntary form and medication consent and is placed in patient's chart. -Medications: - Continue escitalopram 10 mg daily for mood and anxiety - Continue Prazosin 1 mg at bedtime for trauma-related nightmares - Currently on Topiramate for migraine prophylaxis (started when patient was admitted to Medicine) - Currently on Suboxone 8mg/2mg, 1 tablet SL daily (started when patient was admitted to Medicine) - Decrease Librium to 10 mg TID for alcohol withdrawal; will continue to taper - Decrease Gabapentin from 1200 mg TID to 600 mg BID for 1 day, then 400 mg BID for 1 day, then 200 mg BID for 1 day, then 200 mg HS for 1 day, then discontinue. - Will continue to assess whether antipsychotic is indicated; at this time patient appears to be actively withdrawing from substances and which may have precipitated the experiences of "derealization" she describes -Ativan and Haldol PRN for agitation/aggression - Continue thiamine, MVM for etoh use - CIWA protocol with Ativan PRN for ETOH withdrawal. - Patient was counselled on substance abuse and desires to cut back on use - Patient was informed of the risks, benefits and side effects of the medication and patient verbally consented to taking the medications. - NRT -nicotine patch - SW on board for discharge planning. Encourage patient to participate in groups to work on coping skills.
[2024-10-25] MEDS: GABAPENTIN 300 MG CAP PO SCH (15:49)
[2024-10-25] MEDS ORDERED: chlordiazePOXIDE 25 MG CAP PO SCH (16:00)
--- NOTE | 2024-10-26 12:20 | P.PN ---
Progress Note - Text Progress Note Date: 10/26/24 Interval History: Patient was seen resting in bed and was directable and agreeable to speak with staff writer in the office. Patient claims that she is feeling paranoid, believes that other people are talking about her. She states that she is also hearing voices telling her negative things about herself and to do things. She appears to be fairly anxious, endorsing depression and "not feeling good". She appears to have very poor insight poor judgment. Was agreeable to have her medications adjusted. Difficulty following directions. At this time patient denies any suicidal or homicidal ideations, intent, or plan. MENTAL STATUS EXAM: General Appearance: Patient appears to be older than stated age is alert, directable, and attempts to cooperate. Patient appears to have mildly improving hygiene and grooming. Behavior: Patient is seated without any agitated behavior. Gait is unsteady. Im proving mildly Speech: Patient's speech is fluent and nonpressured. Hesitant Mood/Affect: Patient reports their mood is "not good", affect is congruent and constricted. Suicidality/Homicidality: Patient denies having any homicidal ideation intent or plan. Denies suicidal ideation, identified method, intent, or plan Perceptions: Patient denies any visual hallucinations and auditory hallucination s are positive for command hallucinations Though content/process: Thought process is mildly disorganized, endorsing paranoia. Poverty of content Memory and concentration: Oriented to person and place. Judgment and insight: Poor chronically Assessment: Psychosis unspecified Depressive disorder unspecified Alcohol use disorder, severe, in withdrawal Cannabis use disorder Polysubstance Abuse (cocaine, benzodiazepines, opioids, and other substances) PLAN: -Patient is admitted under voluntary status to MHU for stabilization of psychiatric symptoms and safety. Patient has signed adult voluntary form and medication consent and is placed in patient's chart. -Medications: -Increase escitalopram 20 mg daily for mood and anxiety - Continue Prazosin 1 mg at bedtime for trauma-related nightmares - Currently on Topiramate for migraine prophylaxis (started when patient was admitted to Medicine) - Currently on Suboxone 8mg/2mg, 1 tablet SL daily (started when patient was admitted to Medicine) - Librium to 10 mg TID for alcohol withdrawal; will continue to taper - Gabapentin from 1200 mg TID to 600 mg BID for 1 day, then 400 mg BID for 1 day, then 200 mg BID for 1 day, then 200 mg HS for 1 day, then discontinue. -Start Abilify 5 mg daily for mood stabilization/psychosis -Ativan and Haldol PRN for agitation/aggression - Continue thiamine, MVM for etoh use - CIWA protocol with Ativan PRN for ETOH withdrawal. - NRT -nicotine patch - SW on board for discharge planning. Encourage patient to participate in groups to work on coping skills. Refusing rehab at this time.
[2024-10-26] MEDS: ARIPiprazole 5 MG TAB PO SCH (12:34)
[2024-10-26] MEDS: GABAPENTIN 400 MG CAP PO SCH (20:18)
[2024-10-27] MEDS: ESCITALOPRAM 20 MG TAB PO SCH (08:36)
--- NOTE | 2024-10-27 11:28 | P.PN ---
Progress Note - Text Progress Note Date: 10/27/24 Interval History: Patient was seen wandering the hallways today. She was about to go to group. She was agreeable to speak to ghost writer today. She claims that she is still hearing the voices and they are very negative to her. She claims that they are not improving at all. She kept on asking ghost writer why she is feeling this way. Claims that her anxiety levels high. States that she continues to feel that people are talking behind her back and out to get her. States that she had difficulty sleeping last night and was having nightmares. She appears to have very poor insight poor judgment. Was agreeable to have her medications adjusted. Difficulty following directions. At this time patient denies any suicidal or homicidal ideations, intent, or plan. MENTAL STATUS EXAM: General Appearance: Patient appears to be older than stated age is alert, directable, and attempts to cooperate. Patient appears to have mildly improving hygiene and grooming. Behavior: Patient is seated without any agitated behavior. Gait is unsteady. Improving mildly Speech: Patient's speech is fluent and nonpressured. Hesitant, improving mildly Mood/Affect: Patient reports their mood is "not good still", affect is congruent and constricted. Suicidality/Homicidality: Patient denies having any homicidal ideation intent or plan. Denies suicidal ideation, identified method, intent, or plan Perceptions: Patient denies any visual hallucinations and auditory hallucinations are positive for command hallucinations that are not improving Though content/process: Thought process is mildly disorganized, endorsing paranoia. Poverty of content Memory and concentration: Oriented to person and place. Judgment and insight: Poor chronically, improving mildly Assessment: Psychosis unspecified Depressive disorder unspecified Alcohol use disorder, severe, in withdrawal Cannabis use disorder Polysubstance Abuse (cocaine, benzodiazepines, opioids, and other substances) PLAN: -Patient is admitted under voluntary status to MHU for stabilization of psychiatric symptoms and safety. Patient has signed adult voluntary form and medication consent and is placed in patient's chart. -Medications: -escitalopram 20 mg daily for mood and anxiety -add remeron 15 mg qhs for mood/anxiety/sleep - Continue Prazosin 1 mg at bedtime for trauma-related nightmares - Currently on Topiramate for migraine prophylaxis (started when patient was admitted to Medicine) - Currently on Suboxone 8mg/2mg, 1 tablet SL daily (started when patient was admitted to Medicine) - Librium to 10 mg BID for alcohol withdrawal; will continue to taper - Gabapentin from 1200 mg TID to 600 mg BID for 1 day, then 400 mg BID for 1 day, then 200 mg BID for 1 day, then 200 mg HS for 1 day, then discontinue. - d/c Abilify and replace with invega po 3 mg daily for mood stabilization/psychosis -Ativan and Haldol PRN for agitation/aggression - Continue thiamine, MVM for etoh use - CIWA protocol with Ativan PRN for ETOH withdrawal. - NRT -nicotine patch - SW on board for discharge planning. Encourage patient to participate in groups to work on coping skills. Refusing rehab at this time.
[2024-10-27] MEDS: PALIPERIDONE 3 MG TAB.ER.24 PO SCH (11:58)
[2024-10-27] MEDS: GABAPENTIN 100 MG CAP PO SCH (20:43)
[2024-10-27] MEDS: MIRTAZAPINE 15 MG TAB PO SCH (20:43)
[2024-10-28] MEDS: IBUPROFEN 600 MG TAB PO PRN (10:18)
--- NOTE | 2024-10-28 11:55 | P.PN ---
Progress Note - Text Progress Note Date: 10/28/24 Interval History: Patient was seen wandering the hallways today. Patient has also been going to groups. She was about to go to group. She was agreeable to speak to abstract writer today. She claims that the voices have been calming down for her, claims that she feels less paranoid about other people talking about her. She appears to have a mild improvement in her affect today, appears to be more optimistic. She was asking about keeping Ativan for anxiety. Denying any withdrawal symptoms at this time. Denies any depression today, continues to state that she does have anxiety. He was agreeable to shower today. Has a improving appetite. States that she had difficulty sleeping last night. She appears to have poor insight poor judgment, this is improving. At this time patient denies any suicidal or homicidal ideations, intent, or plan. MENTAL STATUS EXAM: General Appearance: Patient appears to be older than stated age is alert, directable, and attempts to cooperate. Patient appears to have mildly improving hygiene and grooming. Behavior: Patient is seated without any agitated behavior. More cooperative today, improving mildly Speech: Patient's speech is fluent and nonpressured. Hesitant, improving mildly Mood/Affect: Patient reports their mood is "a bit better, still anxious l", affect is congruent and constricted., Improving mildly Suicidality/Homicidality: Patient denies having any homicidal ideation intent or plan. Denies suicidal ideation, identified method, intent, or plan Perceptions: Patient denies any visual hallucinations and auditory hallucinations denying Though content/process: Thought process is mildly disorganized, paranoia improving. Poverty of content, improving Memory and concentration: Oriented to person and place. Judgment and insight: Poor chronically, improving mildly Assessment: Psychosis unspecified Depressive disorder unspecified Alcohol use disorder, severe, in withdrawal Cannabis use disorder Polysubstance Abuse (cocaine, benzodiazepines, opioids, and other substances) PLAN: -Patient is admitted under voluntary status to MHU for stabilization of psychiatric symptoms and safety. Patient has signed adult voluntary form and medication consent and is placed in patient's chart. -Medications: -d/c escitalopram and replace with zoloft 50 mg daily for mood and anxiety -increase remeron 30 mg qhs for mood/anxiety/sleep - Continue Prazosin 1 mg at bedtime for trauma-related nightmares - Currently on Topiramate for migraine prophylaxis (started when patient was admitted to Medicine) - Currently on Suboxone 8mg/2mg, 1 tablet SL daily (started when patient was admitted to Medicine) - Librium to 10 mg BID for alcohol withdrawal; will continue to taper and d/c tomorrow - Gabapentin from 1200 mg TID to 600 mg BID for 1 day, then 400 mg BID for 1 day, then 200 mg BID for 1 day, then 200 mg HS for 1 day, then discontinue. -invega po 3 mg daily for mood stabilization/psychosis -Ativan and Haldol PRN for agitation/aggression - Continue thiamine, MVM for etoh use - CIWA protocol with Ativan PRN for ETOH withdrawal. d/c tomorrow - NRT -nicotine patch - SW on board for discharge planning. Encourage patient to participate in groups to work on coping skills. Refusing rehab at this time.
[2024-10-28] MEDS: SERTRALINE 50 MG TAB PO SCH (12:06)
[2024-10-28] MEDS: LORazepam 0.5 MG TAB PO PRN (12:06)
[2024-10-28] MEDS: MAG HYDROX/AL HYDROX/SIMETH 355 ML BOTTLE PO PRN (16:30)
[2024-10-28] MEDS: GABAPENTIN 100 MG CAP PO ONE (20:38)
[2024-10-28] MEDS: MIRTAZAPINE 15 MG TAB PO SCH (20:38)
[2024-10-28] MEDS: ONDANSETRON 4 MG TAB PO PRN (20:42)
[2024-10-29 06:57] VITALS: RESP 16
--- NOTE | 2024-10-29 11:17 | P.PN ---
Progress Note - Text Progress Note Date: 10/29/24 Interval History: Patient was seen sitting in on group today. She continues to state that she is feeling paranoid today, mentioning that she feels that people are talking behind her back and also plotting against her possibly. She states that she is still not feeling well. Claims that she is now hearing voices talking to her again telling her negative things. also claims that she is possibly seeing things that she knows are not there. She was asking about different options for treatment a nd also possibly a hospital to hospital transfer. She feels that she is reliant on other people and feels that she is in a "fog". Claims that her anxiety is still elevated at this time, denies any depression. Denying any withdrawal symptoms at this time. Has a improving appetite. States that she had difficulty sleeping last night. She appears to have poor insight poor judgment, this is improving. At this time patient denies any suicidal or homicidal ideations, intent, or plan. MENTAL STATUS EXAM: General Appearance: Patient appears to be older than stated age is alert, directable, and attempts to cooperate. Patient appears to have mildly improving hygiene and grooming. Behavior: Patient is seated without any agitated behavior. More cooperative today, improving mildly Speech: Patient's speech is fluent and nonpressured. Hesitant, soft tone Mood/Affect: Patient reports their mood is "still anxious", affect is congruent and constricted., Improving mildly Suicidality/Homicidality: Patient denies having any homicidal ideation intent or plan. Denies suicidal ideation, identified method, intent, or plan Perceptions: Patient admits to visual hallucinations and auditory hallucinations Though content/process: Thought process is mildly disorganized, paranoia. Poverty of content, improving Memory and concentration: Oriented to person and place. Judgment and insight: Poor chronically, improving mildly Assessment: Psychosis unspecified Depressive disorder unspecified Alcohol use disorder, severe, in withdrawal Cannabis use disorder Polysubstance Abuse (cocaine, benzodiazepines, opioids, and other substances) PLAN: -Patient is admitted under voluntary status to [facility] for stabilization of psychiatric symptoms and safety. Patient has signed adult voluntary form and medication consent and is placed in patient's chart. -Medications: -increase zoloft 100 mg daily for mood and anxiety -remeron 30 mg qhs for mood/anxiety/sleep - Continue Prazosin 1 mg at bedtime for trauma-related nightmares - Topiramate for migraine prophylaxis -Suboxone 8mg/2mg, 1 tablet SL daily -increase invega po 3 mg BID for mood stabilization/psychosis -Ativan and Haldol PRN for agitation/aggression - Continue thiamine, MVM for etoh use - d/c [facility] protocol - NRT -nicotine patch - SW on board for discharge planning. Encourage patient to participate in groups to work on coping skills. Refusing rehab at this time. likely discharge next week as patient is still not psychiatrically stablized
[2024-10-29] MEDS: ACETAMINOPHEN TAB 325 MG TAB PO PRN (16:21)
[2024-10-29] MEDS: GABAPENTIN 100 MG CAP PO ONE (21:29)
[2024-10-29] MEDS: PALIPERIDONE 3 MG TAB.ER.24 PO SCH (21:30)
[2024-10-30] MEDS: SERTRALINE 100 MG TAB PO SCH (06:47)
[2024-10-30] MEDS: GABAPENTIN 300 MG CAP PO SCH (10:46)
--- NOTE | 2024-10-30 11:04 | P.PN ---
Progress Note - Text Progress Note Date: 10/30/24 Interval History: Patient was seen sitting in on group today. Patient was agreeable to speak to scientific technical writer today in the office. She appears to be more cooperative today less anxious. Continues to endorse anxiety some depression. States that she is still hearing some voices however they are calming down, still is endorsing some paranoia at this time however states that it is improved. Claims that she has been taking her medications not reporting any side effects. She was asking about a potential increase in her Suboxone or her gabapentin to be resumed for neuropathic pain. States that she had a difficult time sleeping last night, we spoke about trying doxepin which she is okay with. Has a improving appetite. She appears to have mildly improving insight poor judgment, this is improving. At this time patient denies any suicidal or homicidal ideations, intent, or plan. MENTAL STATUS EXAM: General Appearance: Patient appears to be older than stated age is alert, directable, and attempts to cooperate. Patient appears to have mildly improving hygiene and grooming. Behavior: Patient is seated without any agitated behavior. More cooperative today, improving mildly Speech: Patient's speech is fluent and nonpressured. Hesitant, soft tone, improving mildly Mood/Affect: Patient reports their mood is "still anxious", affect is congruent and Improving mildly Suicidality/Homicidality: Patient denies having any homicidal ideation intent or plan. Denies suicidal ideation, identified method, intent, or plan Perceptions: Patient admits to visual hallucinations and auditory hallucinations, which are improving Though content/process: Thought process is improving, more organization, less paranoia. Poverty of content, improving Memory and concentration: Oriented to person and place. Attention span improving. Judgment and insight: Poor chronically, improving mildly Assessment: Psychosis unspecified Depressive disorder unspecified Alcohol use disorder, severe, in withdrawal Cannabis use disorder Polysubstance Abuse (cocaine, benzodiazepines, opioids, and other substances) PLAN: -Patient is admitted under voluntary status to [facility] for stabilization of psychiatric symptoms and safety. Patient has signed adult voluntary form and medication consent and is placed in patient's chart. -Medications: -zoloft 100 mg daily for mood and anxiety, consider increasing over the weekend if needed. -d/c remeron and replace with doxepin 10 mg qhs for sleep/mood - Continue Prazosin 1 mg at bedtime for trauma-related nightmares - Topiramate for migraine prophylaxis -Suboxone 8mg/2mg, 1 tablet SL daily, consider increasing to BID over the weekend if needed -invega po 3 mg BID for mood stabilization/psychosis -Ativan and Haldol PRN for agitation/aggression - Continue thiamine, MVM for etoh use - NRT -nicotine patch - SW on board for discharge planning. Encourage patient to participate in groups to work on coping skills. Refusing rehab at this time. likely discharge next week as patient is still not psychiatrically stablized
[2024-10-30] MEDS: BUPRENORPHINE-NALOX 8-2 MG TAB 1 EACH TAB.SUBL SL SCH (19:56)
[2024-10-30] MEDS: DOXEPIN 10 MG CAP PO SCH (19:56)
--- NOTE | 2024-10-31 14:07 | P.PN ---
Progress Note - Text Progress Note Date: 10/31/24 Interval history: patient was seen in the interview room and was agreeable with speaking with sondra dugan. She states that her mood is "much better" because she has been experiencing less frequent auditory hallucinations. She states that the current medication regimen has been helpful. She says sleep has improved however she continues to have nightmares and asks for increase in prazosin. She also reports improvement in anxiety with being on Neurontin and asks that it be increased to help with neuropathy. She reports good energy and appetite. She denies all other concerns. At this time patient denies any suicidal or homicidal ideations intent or plan. Denies any Auditory or visual hallucinations. Patient denies any side effects from the medications and has been compliant with meds. Mental status exam: General Appearance: Patient appears to be older than stated age is alert, direc table, and attempts to cooperate. Patient appears to have mildly improving hygiene and grooming. Behavior: Patient is seated without any agitated behavior. cooperative Speech: Patient's speech is fluent and nonpressured. Mood/Affect: Patient reports their mood is "much better", affect is congruent and Suicidality/Homicidality: Patient denies having any homicidal ideation intent or plan. Denies suicidal ideation, identified method, intent, or plan Perceptions: Patient denies visual hallucinations and auditory hallucinations Though content/process: Thought process is linear, organized, no paranoia. Memory and concentration: Oriented to person and place. Attention span grossly intact to interview Judgment and insight: Poor chronically, improving mildly Assessment/Plan: Continue with current diagnosis. Patient continues to meet criteria for inpatient psychiatric admission for symptom stabilization and safety. Patient will be maintained on current psychotropic medication regimen. Increase prazosin to 2 mg at bedtime for nightmares. Increase Neurontin to 600 mg twice a day. Monitor for medication compliance and for any psychotropic medication side effects. Will continue to monitor ongoing response to treatment. Encouraged participation in milieu.
[2024-10-31] MEDS: PRAZOSIN 1 MG CAP PO SCH (20:39)
[2024-10-31] MEDS: GABAPENTIN 300 MG CAP PO SCH (20:39)
--- NOTE | 2024-11-01 11:30 | P.PN ---
Progress Note - Text Progress Note Date: 11/01/24 Interval history: Patient was seen in the interview room and was agreeable with speaking with sondra dugan. She states that her mood is "up and down" because she has been thinking about her mother (with whom she was close) and her sister. Discussed the grief she experiences and her hope to stay resilient. She says nightmares have improved but that she did have a nightmare last night. She reports trouble with sleep last night and requests an increase in doxepin. Also discussed increasing Zoloft as planned. Patient was agreeable with this. S She reports good energy and appetite. She denies all other concerns. At this time patient denies any suicidal or homicidal ideations intent or plan. Denies any Auditory or visual hallucinations. Patient denies any side effects from the medications and has been compliant with meds. Mental status exam: General Appearance: Patient appears to be older than stated age is alert, directable, and attempts to cooperate. Patient appears to have mildly improving hygiene and grooming. Behavior: Patient is seated without any agitated behavior. cooperative Speech: Patient's speech is fluent and nonpressured. Mood/Affect: Patient reports their mood is "up and down", affect is congruent Suicidality/Homicidality: Patient denies having any homicidal ideation intent or plan. Denies suicidal ideation, identified method, intent, or plan Perceptions: Patient denies visual hallucinations and auditory hallucinations Though content/process: Thought process is linear, organized, no paranoia. Memory and concentration: Oriented to person and place. Attention span grossly intact to interview Judgment and insight: Poor chronically, improving mildly Assessment/Plan: Continue with current diagnosis. Patient continues to meet criteria for inpatient psychiatric admission for symptom stabilization and safety. Increase Zoloft to 150 mg daily for depression. Increase Doxepin to 25 mg qHS for sleep and mood augmentation. Patient will be maintained on other current psychotropic medication regimen. Monitor for medication compliance and for any psychotropic medication side effects. Will continue to monitor ongoing response to treatment. Encouraged participation in milieu.
[2024-11-01] MEDS: SERTRALINE 50 MG TAB PO ONE (12:20)
[2024-11-01] MEDS: DOXEPIN 25 MG CAP PO SCH (20:22)
[2024-11-02] MEDS: SERTRALINE 50 MG TAB PO SCH (07:59)
--- NOTE | 2024-11-02 10:13 | P.PN ---
Progress Note - Text Progress Note Date: 11/02/24 Interval History: Patient was seen wandering the hallways this morning. Patient was agreeable to speak to medical underwriter today in the office. She claims that she has been going to groups, claiming that she is thankful for the medications that she has been prescribed. States that she is doing better in terms of her anxiety and depression. States that she is no longer hearing voices at this time. Claims that the increase in Suboxone has been helping her with pain and also her irritability and opioid cravings. States that she would need a higher dose of her doxepin as she is finding it difficult to sleep. Had to take a Haldol as needed last night due to an agitated patient on the unit. Claims that she has been taking her medications not reporting any side effects. Has a improving appetite. She appears to have mildly improving insight poor judgment, this is improving. At this time patient denies any suicidal or homicidal ideations, intent, or plan. MENTAL STATUS EXAM: General Appearance: Patient appears to be older than stated age is alert, directable, and attempts to cooperate. Patient appears to have mildly improving hygiene and grooming. Behavior: Patient is seated without any agitated behavior.cooperative today, improving mildly Speech: Patient's speech is fluent and nonpressured. soft tone, improving mildly Mood/Affect: Patient reports their mood is "still anxious", affect is congruent and Improving mildly Suicidality/Homicidality: Patient denies having any homicidal ideation intent or plan. Denies suicidal ideation, identified method, intent, or plan Perceptions: Patient denies any auditory or visual hallucinations. Though content/process: Thought process is improving, more organization Memory and concentration: A and Ox3, Attention span improving. Judgment and insight: improving mildly Assessment: Psychosis unspecified Depressive disorder unspecified Alcohol use disorder, severe, in withdrawal Cannabis use disorder Polysubstance Abuse (cocaine, benzodiazepines, opioids, and other substances) PLAN: -Patient is admitted under voluntary status to [facility] for stabilization of psychiatric symptoms and safety. Patient has signed adult voluntary form and medication consent and is placed in patient's chart. -Medications: -zoloft 150 mg daily for mood and anxiety -increase doxepin 50 mg qhs for sleep/mood -Prazosin 1 mg at bedtime for trauma-related nightmares -Topiramate for migraine prophylaxis -Suboxone 8mg/2mg, 1 tablet SL BID -invega po 3 mg BID for mood stabilization/psychosis -melatonin 5 mg qhs for sleep - Ativan and Haldol PRN for agitation/aggression - Continue thiamine, MVM for etoh use - NRT -nicotine patch - SW on board for discharge planning. Encourage patient to participate in groups to work on coping skills. Refusing rehab at this time. likely discharge in 1-2 days if patient continues to improve, will need to be set up with [facility] and suboxone perscriber.
[2024-11-02] MEDS: SIMETHICONE 80 MG CHEWABLE PO PRN (13:01)
[2024-11-02] MEDS: MELATONIN 5 MG TABLET PO SCH (21:02)
[2024-11-02] MEDS: DOXEPIN 25 MG CAP PO SCH (21:03)
[2024-11-03 06:53] VITALS: BP 101/69; PULSE 107; TEMP 97.7
--- NOTE | 2024-11-03 11:15 | P.DS ---
Providers Date of admission: 10/23/24 20:04 Expected date of discharge: 11/03/24 Attending physician: Casper Hernandez MD Consults: 10/23/24 18:18 Consult Physician Routine Consulting Provider: Margarito Woody Consult Reason/Comments: H&P and medical Do you want consulting provider notified?: Yes Primary care physician: Stated None - Discharge Diagnosis(es) (1) Unspecified psychosis Current Visit: Yes Status: Acute Priority: High (2) Depressive disorder Current Visit: Yes Status: Acute Priority: High (3) Alcohol use disorder Current Visit: Yes Status: Acute Priority: High (4) Cannabis use disorder Current Visit: Yes Status: Acute Priority: Medium (5) Polysubstance (including opioids) dependence with physiol dependence Current Visit: Yes Status: Acute Priority: High Hospital Course: Admission HPI: Admission note was completed by Dr Paniagua "patient is a 34 year old woman with polysubstance abuse. Adelita Cota is a 34 year old woman with a history of polysubstance abuse and associated medical problems who presented to the ER on 10/21/24 and was admitted for alcohol withdrawal management. A psychiatry consult was requested and recommendations were made for her to transition to the inpatient psychiatric unit once she was medically stable. Ms. Cota was seen today for evaluation following her admission to the unit overnight. When asked about the circumstances that precipitated her admission she stated "I think I am ". She then became very tearful and said that she was feeling "confused" because she was not sure about some of the details leading up to her admission. She recalls having recently been in an outside hospital getting treatment for skin abscesses related to substance misuse. She subsequently discharged to her aunts house where she ended up returning to alcohol use, drink a couple pints, "took some pills" and ended up back in the emergency department at this hospital. She describes having "derealization feeling" for the last week in which she is unsure whether she is alive or real or whether the things happening around her are real. She describes feeling anxious and worried that she is not able to "do the right thing" and endorses experiencing panic symptoms on a daily basis. She describes having had a history of trauma and has both nightmares and flashbacks; she is unable to quantify the frequency at this time but does recall having taken prazosin in the past which was helpful. Regards to other symptoms she endorses having auditory hallucinations before admission that were very negative and seem to be people's mean thoughts about her. She also described having "paranoid thoughts" but this seems to have improved. She denies experiencing visual hallucinations. She reports having suicidal ideation because she "did not know what to do" and denies any identified method intent or plan. She also denies homicidal ideation, intent, or plan." Hospital course: Upon admission to the unit patient was directable and agreeable to commence treatment and signed adult voluntary form. Patient was initially bizarre, psy chotic disheveled however with time and treatment she eventually got along well with other patients on the unit and followed unit protocol. Patient was compliant with the medications and denied any side effects throughout hospital course. Patient was started on Zoloft increased to dose of 150 mg daily for mood/anxiety, doxepin increased to dose of 50 mg nightly for sleep/mood, prazosin 2 mg for nightmares, topiramate twice daily for migraine prophylaxis, Invega p.o. 3 mg twice daily for mood stabilization/psychosis, melatonin 5 mg nightly for sleep, patient was also restarted on Suboxone and increased to 8mg/2mg bid dosing for opioid dependence. Patient was also started on Librium taper for alcohol withdrawal and also CIWA protocol with as needed Ativan. Patient spoke about her stressors and engaged in therapy both group and individual. Patient was also seen by medical team for history and physical exam. Throughout the course of the hospitalization patient gradually improved with regards to mood, anxiety, psychosis, lability, sleep and became more future oriented with improved insight and judgment. On the day of discharge patient denied any suicidal or homicidal ideations intent or plan denied any auditory or visual hallucinations. Patient endorsed wanting to live for their health, sobriety and family. The patient denied any access to guns or weapons. Patient denied any paranoia and did not endorse any delusions. Patient does have a significant history of substance abuse and was counseled on abstaining from all substances including alcohol and marijuana. Patient was offered however declined inpatient substance-abuse rehab. Patient elected to do outpatient substance use treatment program through their outpatient provider. She will be following up and going to [facility] for continued suboxone treatment. Patient was also counseled on the medications and need for regular compliance and was encouraged to follow-up with their outpatient appointment for mental health and also for primary care. Mental status exam: General Appearance: Patient appears to be stated age is alert, pleasant, and cooperative. Patient is in no acute distress and has improved hygiene and grooming Behavior: Patient is calmly seated without any agitated behavior. Speech: Patient's speech is fluent and nonpressured. Mood/Affect: Patient reports their mood is "better", affect is congruent and euthymic Suicidality/Homicidality: Patient denies having any suicidal or homicidal ideation intent or plan. Perceptions: Patient denies any auditory or visual hallucinations. Though content/process: There is no evidence of any delusional thought content and thought process is linear and goal-directed. Memory and concentration: AOX3, grossly intact for the purposes of this session. Can spell "WORLD" backwards correctly. Judgment and insight: improved with guarded prognosis Impression: Psychosis unspecified Depressive disorder unspecified Alcohol use disorder Cannabis use disorder Polysubstance abuse, including opioid use disorder with physiologic dependence Plan: -Continue with discharge today as patient has improved and stabilized psychiatrically and is not currently an imminent threat to themself and/or others. Patient will remain at chronically elevated risk for harm to self and/or others due to her hx of substance abuse. -Continue medications: Zoloft 150 mg daily for mood/anxiety, doxepin 50 mg nightly for sleep/mood, prazosin 2 mg nightly for nightmares, Suboxone 8 mg / 2 mg 1 tablet sublingual twice daily for opioid dependence, Invega 3 mg twice daily for mood stabilization/psychosis, melatonin 5 mg nightly for sleep. -Patient was counseled on the need for medication compliance and appropriate follow-up at mental health and also primary care for medical issues. Patient verbalized understanding and agreed. -Social work to help coordinate patients discharge today, patient will be staying with her father for the time being before she finds her own place to live. also to ensure safe home environment that guns/weapons are either removed from the home or locked away. Social work also to arrange for patients follow up appointments with [facility] for psychiatric care along with follow up with primary care provider. -Patient counseled on abstaining from recreational drugs and marijuana and alcohol. Was informed/educated on the adverse effects on their physical and mental health. Patient verbally agreed and understood. Patient was offered substance abuse treatment however declined at this time. -Patient was instructed to return to the hospital or seek immediate medical care if their psychiatric or medical symptoms do worsen or reoccur. Allergies Allergy/AdvReac Type Severity Reaction Status Date / Time trazodone AdvReac dizziness Verified 10/23/24 20:[address] Glu mg/dL 103 mg/dL 10/24/24 06:27 Hemoglobin A1c 5.2 % (<=6.0) 10/24/24 06:27 Triglycerides 86.40 mg/dL (0.00-149.00) 10/24/24 06:27 Cholesterol 138.00 mg/dL (0.00-200.00) 10/24/24 06:27 LDL Cholesterol, Calc 45.6 mg/dL (0.0-131.0) 10/24/24 06: VLDL Cholesterol, Calc 17.28 mg/dL (5.00-40.00) 10/24/24 06:27 HDL Cholesterol 75.10 mg/dL (40.00-60.00) H 10/24/24 06:27 Cholesterol/HDL Ratio 1.84 Ratio 10/24/24 06: TSH 1.750 mIU/L (0.465-4.680) 10/24/24 06:27 Urine Color Colorless 10/23/24 21:00 Urine Appearance Clear (Clear) 10/23/24 21:00 Urine pH 6.5 (5.0-8.0) 10/23/24 21:00 Ur Specific [place] 1.020 (1.001-1.035) 10/23/24 21:00 Urine Protein Negative (Negative) 10/23/24 21:00 Urine Glucose (UA) Negative (Negative) 10/23/24 21:00 Urine Ketones Negative (Negative) 10/23/24 21:00 Urine Blood Small (Negative) H 10/23/24 21:00 Urine Nitrite Negative (Negative) 10/23/24 21:00 Urine Bilirubin Negative (Negative) 10/23/24 21:00 Urine Urobilinogen <2.0 mg/dL (<2.0) 10/23/24 21:00 Ur Leukocyte Esterase Trace (Negative) H 10/23/24 21:00 Urine RBC 4 /hpf (0-5) 10/23/24 21:00 Urine WBC 14 /hpf (0-5) H 10/23/24 21:00 Ur Squamous Epith Cells 4 /hpf (0-4) 10/23/24 21:00 Urine Bacteria Rare /hpf (None) H 10/23/24 21:00 Vital Signs Temp 97.7 F 11/03/24 06:03 Pulse 107 H 11/03/24 06:03 Resp 16 11/03/24 06:03 BP 101/69 11/03/24 06:03 Pulse Ox 97 11/03/24 06:03 FiO2 Patient Condition at Discharge: Stable Plan - Discharge Summary Discharge Rx Participant: Yes New Discharge Prescriptions: New Folic Acid 1 mg PO DAILY 30 Days #30 tab Paliperidone [Invega] 3 mg PO BID 30 Days #60 tab Prazosin [Minipress] 2 mg PO HS 30 Days #60 cap Ibuprofen [Motrin] 600 mg PO BID PRN 30 Days #60 tab PRN Reason: Moderate Pain (Scale 4 To 6) Multivitamins, Thera [Multivitamin (formulary)] 1 each PO DAILY 30 Days #30 tab Gabapentin [Neurontin] 600 mg PO BID 15 Days #60 cap Nicotine 14Mg/24Hr Patch [Habitrol] 1 patch TRANSDERM DAILY 14 Days #14 patch Melatonin 5 mg PO HS 30 Days #30 tab Simethicone Chew [Mylicon Chew] 80 mg PO BID PRN 15 Days #30 tab PRN Reason: Bloating/gas Doxepin [SINEquan] 50 mg PO HS 30 Days #60 cap Sertraline [Zoloft] 150 mg PO DAILY 30 Days #90 tab Continue Thiamine [Vitamin B-1] 100 mg PO DAILY 30 Days #30 tab Topiramate [Topamax] 100 mg PO BID 30 Days #60 tab Discontinued Gabapentin [Neurontin] 1,200 mg PO TID Pramipexole [Mirapex] 0.25 mg PO DAILY Doxepin HCl [SINEquan] 75 mg PO DAILY Dicyclomine [Bentyl] 10 mg PO QID Cyclobenzaprine [Flexeril] 5 mg PO TID PRN tab PRN Reason: Mild Spasms Buprenorphine-Nalox 8-2 mg Tab [Suboxone 8-2 mg Tab] 1 each SL DAILY@1800 tab Ondansetron [Zofran] 4 mg PO Q6H PRN PRN Reason: Nausea chlordiazePOXIDE HCl [Librium] 25 mg PO TID cap OLANZapine [ZyPREXA] 5 mg PO Q6HR PRN tab PRN Reason: agitation/psychosis Discharge Medication List Doxepin [SINEquan] 50 mg PO HS 30 Days #60 cap 11/03/24 [Rx] Folic Acid 1 mg PO DAILY 30 Days #30 tab 11/03/24 [Rx] Gabapentin [Neurontin] 600 mg PO BID 15 Days #60 cap 11/03/24 [Rx] Ibuprofen [Motrin] 600 mg PO BID PRN 30 Days #60 tab 11/03/24 [Rx] Melatonin 5 mg PO HS 30 Days #30 tab 11/03/24 [Rx] Multivitamins, Thera [Multivitamin (formulary)] 1 each PO DAILY 30 Days #30 tab 11/03/24 [Rx] Nicotine 14Mg/24Hr Patch [Habitrol] 1 patch TRANSDERM DAILY 14 Days #14 patch 11/03/24 [Rx] Paliperidone [Invega] 3 mg PO BID 30 Days #60 tab 11/03/24 [Rx] Prazosin [Minipress] 2 mg PO HS 30 Days #60 cap 11/03/24 [Rx] Sertraline [Zoloft] 150 mg PO DAILY 30 Days #90 tab 11/03/24 [Rx] Simethicone Chew [Mylicon Chew] 80 mg PO BID PRN 15 Days #30 tab 11/03/24 [Rx] Thiamine [Vitamin B-1] 100 mg PO DAILY 30 Days #30 tab 11/03/24 [Rx] Topiramate [Topamax] 100 mg PO BID 30 Days #60 tab 11/03/24 [Rx] Activity/Diet/Wound Care/Special Instructions: [facility] Discharge Info Avoid the use of street drugs and alcohol. Take all medications as prescribed. When you are in need of refills on your medications, please contact your outpatient medical provider and/or outpatient psychiatrist. Please go to your scheduled outpatient appointments for aftercare treatment. If symptoms return or become worse, call the crisis line at or and/or visit the nearest emergency room for assistance. National Suicide and Crisis Lifeline - call or text 988 Discharge Disposition: HOME SELF-CARE
== END 2024-11-03 13:55 | disposition home or self-care (01) | DRG 751 ==
LOC: 3MHU 20:04
PROVIDERS: ADMIT Psychiatry & Neurology Psychiatry; ATTEND Psychiatry & Neurology Psychiatry
DX: F29 Unspecified psychosis not due to a substance or known physiological condition (principal); F43.10 Post-traumatic stress disorder, unspecified; F48.1 Depersonalization-derealization syndrome; G40.909 Epilepsy, unspecified, not intractable, without status epilepticus; F10.239 Alcohol dependence with withdrawal, unspecified; F11.20 Opioid dependence, uncomplicated; F41.0 Panic disorder [episodic paroxysmal anxiety]; F12.10 Cannabis abuse, uncomplicated; M51.369 Other intervertebral disc degeneration, lumbar region without mention of lumbar back pain or lower extremity pain; F14.10 Cocaine abuse, uncomplicated; F15.10 Other stimulant abuse, uncomplicated; F17.290 Nicotine dependence, other tobacco product, uncomplicated; F22 Delusional disorders; F41.9 Anxiety disorder, unspecified; G62.9 Polyneuropathy, unspecified; G98.8 Other disorders of nervous system; R45.851 Suicidal ideations; Z79.899 Other long term (current) drug therapy; Z59.00 Homelessness unspecified; Z71.89 Other specified counseling; Z71.51 Drug abuse counseling and surveillance of drug abuser
CPT/HCPCS: 80061; 81001; 83036; 84443

== ENCOUNTER 2024-11-09 04:41 | Emergency (ER) | payer OTHER ==
[2024-11-09 04:48] VITALS: RESP 18
--- NOTE | 2024-11-09 04:50 | ED ---
Psych HPI - General Source: patient, RN notes reviewed, old records reviewed Mode of arrival: ambulatory - History of Present Illness MD Complaint: suicidal ideation, feels depressed, altered mental status -: days(s) Associated Psychiatric Symptoms: depression, suicidal ideation History of same: Yes Quality: constant Improves With: none Worsens With: none Treatments Prior to Arrival: placed on mental health hold <Dawit Moran - Last Filed: 11/09/24 05:10> - General Source: patient, RN notes reviewed, old records reviewed Mode of arrival: ambulatory Limitations: no limitations <Calixto Guerrero - Last Filed: 11/10/24 19:40> - General Chief Complaint: Psychiatric Symptoms Stated Complaint: Med Refill Time Seen by Provider: 11/09/24 04:47 - History of Present Illness Initial Comments: This is a 34-year-old female to the ER for evaluation of psychiatric illness medication reaction off all medication, recent discharge from the hospital (Dawit Moran) - Related Data Previous Rx's Medication Instructions Recorded Buprenorphine-Nalox 8-2 mg Tab 1 each SL BID 5 Days #10 tab 11/03/24 [Suboxone 8-2 mg Tab] Doxepin [SINEquan] 50 mg PO HS 30 Days #60 cap 11/03/24 Folic Acid 1 mg PO DAILY 30 Days #30 tab 11/03/24 Gabapentin [Neurontin] 600 mg PO BID 15 Days #60 cap 11/03/24 Ibuprofen [Motrin] 600 mg PO BID PRN 30 Days #60 tab 11/03/24 Melatonin 5 mg PO HS 30 Days #30 tab 11/03/24 Multivitamins, Thera [Multivitamin 1 each PO DAILY 30 Days #30 tab 11/03/24 (formulary)] Nicotine 14Mg/24Hr Patch [Habitrol] 1 patch TRANSDERM DAILY 14 Days 11/03/24 #14 patch Paliperidone [Invega] 3 mg PO BID 30 Days #60 tab 11/03/24 Prazosin [Minipress] 2 mg PO HS 30 Days #60 cap 11/03/24 Sertraline [Zoloft] 150 mg PO DAILY 30 Days #90 tab 11/03/24 Simethicone Chew [Mylicon Chew] 80 mg PO BID PRN 15 Days #30 tab 11/03/24 Thiamine [Vitamin B-1] 100 mg PO DAILY 30 Days #30 tab 11/03/24 Topiramate [Topamax] 100 mg PO BID 30 Days #60 tab 11/03/24 Allergies Allergy/AdvReac Type Severity Reaction Status Date / Time trazodone AdvReac dizziness Verified 11/09/24 12:25 Review of Systems ROS Other: All systems not noted in ROS Statement are negative. <Dawit Moran - Last Filed: 11/09/24 05:10> ROS Other: All systems not noted in ROS Statement are negative. <Calixto Guerrero - Last Filed: 11/10/24 19:40> ROS Statement: Those systems with pertinent positive or pertinent negative responses have been documented in the HPI. Past Medical History Past Medical History: Liver Disease, Renal Disease, Seizure Disorder, Supraventricular Tachycardia (SVT) Additional Past Medical History / Comment(s): SVT with cardiac ablation, lumbar DDD, bulging lumbar disc, ETOH abuse, alcohol withdrawals, pt states she has a seizure disorder and has alcohol withdrawal seizures with last seizure in 2020, drug abuse/pt states IV drug abuse, hepatitis C, lumbar DDD/bulging discs, migraines, sinus problems, past bilateral arm fractures/casted, past broken left ankle and leg/casted, ruptured spleen with surgery. History of Any Multi-Drug Resistant Organisms: ESBL Date of last positivie culture/infection: 01/17/22 MDRO Source:: ESBL URINE Past Surgical History: Bariatric Surgery, Cardiac Ablation, EPS, Orthopedic Surgery Additional Past Surgical History / Comment(s): Cardiac ablation for SVT, gastric sleeve, spleen repair, I&D L wrist. Past Anesthesia/Blood Transfusion Reactions: No Reported Reaction Additional Past Anesthesia/Blood Transfusion Reaction / Comment(s): Pt has clausterphobia. Past Psychological History: Anxiety, Bipolar, Depression, Panic Disorder Smoking Status: Current every day smoker, Vaper Past Alcohol Use History: Daily Past Drug Use History: Cocaine, Heroin, IV Drug Use, Marijuana, Methamphetamine, Opiates, Prescription Drug Abuse - Past Family History Father History Unknown: Yes Family Medical History: COPD, Diabetes Mellitus Mother History Unknown: Yes Family Medical History: Asthma Additional Family Medical History / Comment(s): pt reports mother had cyclic vomiting issues, substance abuse history Sister(s) Family Medical History: Supraventricular Tachycardia (SVT) Additional Family Medical History / Comment(s): Sister had SVT. She is recently from overdose. <Dawit Moran - Last Filed: 11/09/24 05:10> General Exam Limitations: no limitations General appearance: alert, in no apparent distress Head exam: Present: atraumatic, normocephalic, normal inspection Eye exam: Present: normal appearance, PERRL, EOMI. Absent: scleral icterus, conjunctival injection, periorbital swelling ENT exam: Present: normal exam, mucous membranes moist Neck exam: Present: normal inspection. Absent: tenderness, meningismus, lymphadenopathy Respiratory exam: Present: normal lung sounds bilaterally. Absent: respiratory distress, wheezes, rales, rhonchi, stridor Cardiovascular Exam: Present: regular rate, normal rhythm, normal heart sounds. Absent: systolic murmur, diastolic murmur, rubs, gallop, clicks GI/Abdominal exam: Present: soft, normal bowel sounds. Absent: distended, tenderness, guarding, rebound, rigid Extremities exam: Present: normal inspection, full ROM, normal capillary refill. Absent: tenderness, pedal edema, joint swelling, calf tenderness Back exam: Present: normal inspection Neurological exam: Present: alert, oriented X3, CN II-XII intact Psychiatric exam: Present: normal affect, normal mood Skin exam: Present: warm, dry, intact, normal color. Absent: rash <Dawit Moran - Last Filed: 11/09/24 05:10> Course <Dawit Moran - Last Filed: 11/09/24 05:10> Vital Signs 11/09/24 11/09/24 04:42 12:58 Temperature 97.7 F 98.6 F Pulse Rate 97 104 H Respiratory 18 18 Rate Blood Pressure 136/90 117/79 O2 Sat by Pulse 100 98 Oximetry - Reevaluation(s) Reevaluation #1: 11/09/24 05:11 Medical records reviewed (Dawit Moran) Reevaluation #2: 11/09/24 05:11 Medically cleared for psychiatric evaluation (Dawit Moran) Reevaluation #3: Differential Mental Health Depression, anxiety, bipolar, psychosis, schizophrenia, borderline personality, situational depression, adjustment disorder, behavioral disorder, brain tumor, malingering, substance abuse, encephalopathy, medication reaction, dementia, hypothyroidism, degenerative neurologic disorder, lupus.... This is not meant to be all-inclusive list (Dawit Moran) Reevaluation #4: Was pt. sent in by a medical professional or institution (, [facility], SSN/SSBN WEAPONS EQUIPMENT OPERATOR, urgent care, hospital, or fdc...) When possible be specific @ -no Did you speak to anyone other than the patient for history (EMS, parent, family, police, friend...)? What history was obtained from this source @ -no Did you review nursing and triage notes (agree or disagree)? Why? @ -agree Are old charts reviewed (outside hosp., previous admission, EMS record, old EKG, old radiological studies, urgent care reports/EKG's, fdc records)? Report findings @ -yes Differential Diagnosis (chest pain, altered mental status, abdominal pain women, abdominal pain men, vaginal bleeding, weakness, fever, dyspnea, syncope, headache, dizziness, GI bleed, back pain, seizure, CVA, palpatations, mental hea lth, musculoskeletal)? @ -prior EKG interpreted by me (3pts min.). @ -yes X-rays interpreted by me (1pt min.). @ -yes negative for acute disease CT interpreted by me (1pt min.). @ -no U/S interpreted by me (1pt. min.). @ -no What testing was considered but not performed or refused? (CT, X-rays, U/S, labs)? Why? @ -none What meds were considered but not given or refused? Why? @ -none Did you discuss the management of the patient with other professionals (professionals i.e. [employer] [place], SSN/SSBN WEAPONS EQUIPMENT OPERATOR, lab, RT, psych nurse, high school social studies tutor, tafe registrar, teacher, president and chief operating officer, case picker)? Give summary @ -no Was smoking cessation discussed for >3mins.? @ -no Was critical care preformed (if so, how long)? @ -no Were there social determinants of health that impacted care today? How? (Homelessness, low income, unemployed, alcoholism, drug addiction, transportation, low edu. Level, literacy, decrease access to med. care, senior living, rehab)? @ -none Was there de-escalation of care discussed even if they declined (Discuss DNR or withdrawal of care, Hospice)? DNR status @ -no What co-morbidities impacted this encounter? (DM, HTN, Smoking, COPD, CAD, Cancer, CVA, ARF, Chemo, Hep., AIDS, mental health diagnosis, sleep apnea, morbid obesity)? @ -none Was patient admitted / discharged? Hospital course, mention meds given and route, prescriptions, significant lab abnormalities, going to OR and other per tinent info. @ - Undiagnosed new problem with uncertain prognosis? @ -no Drug Therapy requiring intensive monitoring for toxicity (Heparin, Nitro, Insulin, Cardizem)? @ -no Were any procedures done? @ -no Diagnosis/symptom? @ - Acute, or Chronic, or Acute on Chronic? @ -Acute Uncomplicated (without systemic symptoms) or Complicated (systemic symptoms)? @ -Complicated Side effects of treatment? @ -no Exacerbation, Progression, or Severe Exacerbation? @ -exacerbation Poses a threat to life or bodily function? How? (Chest pain, USA, HI, pneumonia, PE, COPD, DKA, ARF, appy, cholecystitis, CVA, Diverticulitis, Homicidal, Suicidal, threat to staff... and all critical care pts) @ -yes (Dawit Moran) Medical Decision Making <Calixto Guerrero - Last Filed: 11/10/24 19:40> - Medical Decision Making Was pt. sent in by a medical professional or institution (Dr. PA, SSN/SSBN WEAPONS EQUIPMENT OPERATOR, urgent care, hospital, or fdc...) When possible be specific @ -No Did you speak to anyone other than the patient for history (EMS, parent, family, police, friend...)? What history was obtained from this source @ -No Did you review nursing and triage notes (agree or disagree)? Why? @ -I reviewed and agree with nursing and triage notes Were old charts reviewed (outside hosp., previous admission, EMS record, old EKG, old radiological studies, urgent care reports/EKG's, fdc records)? Report findings @ -No old charts were reviewed Differential Diagnosis (chest pain, altered mental status, abdominal pain women, abdominal pain men, vaginal bleeding, weakness, fever, dyspnea, syncope, headache, dizziness, GI bleed, back pain, seizure, CVA, palpatations, mental health, musculoskeletal)? @ -[Differential Mental Health Depression, anxiety, bipolar, psychosis, schizophrenia, borderline personality, situational depression, adjustment disorder, behavioral disorder, brain tumor, malingering, substance abuse, encephalopathy, medication reaction, dementia, hypothyroidism, degenerative neurologic disorder, lupus.... This is not meant to be all-inclusive list EKG interpreted by me (3pts min.). @ -None X-rays interpreted by me (1pt min.). @ -[None done CT interpreted by me (1pt min.). @ -None done U/S interpreted by me (1pt. min.). @ -None done What testing was considered but not performed or refused? (CT, X-rays, U/S, labs)? Why? @ -None What meds were considered but not given or refused? Why? @ -None Did you discuss the management of the patient with other professionals (professionals i.e. , PA, SSN/SSBN WEAPONS EQUIPMENT OPERATOR, lab, RT, psych nurse, high school social studies tutor, tafe registrar, teacher, president and chief operating officer, case picker)? Give summary @ -EPS evaluated patient discussed case with psychiatrist recommends outpatient treatment Was smoking cessation discussed for >3mins.? @ -No Was critical care preformed (if so, how long)? @ -No Were there social determinants of health that impacted care today? How? (Homelessness, low income, unemployed, alcoholism, drug addiction, transportation, low edu. Level, literacy, decrease access to med. care, senior living, rehab)? @ -No Was there de-escalation of care discussed even if they declined (Discuss DNR or withdrawal of care, Hospice)? DNR status @ -No What co-morbidities impacted this encounter? (DM, HTN, Smoking, COPD, CAD, Cancer, CVA, ARF, Chemo, Hep., AIDS, mental health diagnosis, sleep apnea, morbid obesity)? @ -Drug abuse Was patient admitted / discharged? Hospital course, mention meds given and route, prescriptions, significant lab abnormalities, going to OR and other pertinent info. @ -Discharge patient was discharged with safety plan patient has drug abuse. Undiagnosed new problem with uncertain prognosis? @ -No Drug Therapy requiring intensive monitoring for toxicity (Heparin, Nitro, Insulin, Cardizem)? @ -No Were any procedures done? @ -No Diagnosis/symptom? @ -Drug abuse Acute, or Chronic, or Acute on Chronic? @ -Acute Uncomplicated (without systemic symptoms) or Complicated (systemic symptoms)? @ -Complicated Side effects of treatment? @ -No Exacerbation, Progression, or Severe Exacerbation? @ -No Poses a threat to life or bodily function? How? (Chest pain, USA, HI, pneumonia, PE, COPD, DKA, ARF, appy, cholecystitis, CVA, Diverticulitis, Homicidal, Suicidal, threat to staff... and all critical care pts) @ -No (Calixto Guerrero) - Lab Data Lab Results 11/09/24 Range/Units 11:40 Urine Opiates Screen Not Detected (NotDetected) Ur Oxycodone Screen Not Detected (NotDetected) Urine Methadone Screen Not Detected (NotDetected) Ur Barbiturates Screen Not Detected (NotDetected) U Tricyclic Antidepress Not Detected (NotDetected) Ur Phencyclidine Scrn Not Detected (NotDetected) Ur Amphetamines Screen Detected H (NotDetected) U Methamphetamines Scrn Detected H (NotDetected) U Benzodiazepines Scrn Detected H (NotDetected) Urine Cocaine Screen Detected H (NotDetected) U Marijuana (THC) Screen Not Detected (NotDetected) Disposition <Dawit Moran - Last Filed: 11/09/24 05:10> Is patient prescribed a controlled substance at d/c from ED?: No Time of Disposition: 12:32 <Calixto Guerrero - Last Filed: 11/10/24 19:40> Clinical Impression: Psychosis, Drug abuse Disposition: HOME SELF-CARE Condition: Stable Additional Instructions: Please return to the Emergency Department if symptoms worsen or any other concerns. Referrals: None,Stated [Primary Care Provider] - 1-2 days
[2024-11-09] MEDS: LORazepam 1 MG TAB PO STA (05:01)
[2024-11-09] MEDS: ONDANSETRON 4 MG TAB PO STA (05:01)
[2024-11-09] MEDS: cloNIDine 0.2 MG/24HR PATCH TRANSDERM STA (05:11)
[2024-11-09] MEDS: HALOPERIDOL LACTATE 5 MG/ML 1 ML VIAL IM STA (06:14)
[2024-11-09] MEDS: diphenhydrAMINE 50 MG/ML 1 ML VIAL IM STA (11:18)
[2024-11-09 12:12] LABS: Amphetamine Screen,Urine Detected (NotDetected); Barbiturate Screen,Urine Not Detected (NotDetected); Benzodiazepines Screen,Urine Detected (NotDetected); Cocaine Screen,Urine Detected (NotDetected); Methadone Screen, Urine Not Detected (NotDetected); Opiate Screen,Urine Not Detected (NotDetected); Oxycodone Screen, Urine Not Detected (NotDetected); Phencyclidine Screen,Urine Not Detected (NotDetected); Tricyclic Antidepressant,Urine Not Detected (NotDetected); Urn Cannabinoid Scrn Not Detected (NotDetected)
[2024-11-09 13:00] VITALS: BP 117/79; PULSE 104; TEMP 98.6
== END 2024-11-09 13:05 | disposition home or self-care (01) ==
LOC: EC 04:41
DX: F29 Unspecified psychosis not due to a substance or known physiological condition (principal); F19.10 Other psychoactive substance abuse, uncomplicated; F17.290 Nicotine dependence, other tobacco product, uncomplicated; Z88.8 Allergy status to other drugs, medicaments and biological substances
CPT/HCPCS: 82075; 80306; 99285; 96372; J1630

== ENCOUNTER 2024-11-14 12:37 | Inpatient (IN) | payer MEDICAID, OTHER ==
--- NOTE | 2024-11-14 13:48 | ED ---
General Adult HPI - General Chief complaint: Psychiatric Symptoms Stated complaint: Headache,syncope Time Seen by Provider: 11/14/24 13:06 Source: patient Mode of arrival: ambulatory Limitations: no limitations - History of Present Illness Initial comments: Dictation was produced using [employer] dictation software. please excuse any grammatical, word or spelling errors. Chief Complaint: 34-year-old female with headache and suicidal ideation History of Present Illness: Patient is a 34-year-old female with polysubstance abuse presents to the ER for couple days of headache and suicidal ideation. She does not have a plan. States that she has not had alcohol in several days and feels like she is withdrawing. She complains of pain. Denies any numbness tingling paresthesias to the extremities. No vision changes. Patient states that she is having a headache secondary to alcohol withdrawal. Denies any plan for suicide. She not homicidal. Denies any visual auditory hallucinations. The ROS documented in this emergency department record has been reviewed and confirmed by me. Those systems with pertinent positive or negative responses have been documented in the HPI. All other systems are other negative and/or noncontributory. - Related Data Previous Rx's Medication Instructions Recorded Buprenorphine-Nalox 8-2 mg Tab 1 each SL BID 5 Days #10 tab 11/03/24 [Suboxone 8-2 mg Tab] Doxepin [SINEquan] 50 mg PO HS 30 Days #60 cap 11/03/24 Folic Acid 1 mg PO DAILY 30 Days #30 tab 11/03/24 Gabapentin [Neurontin] 600 mg PO BID 15 Days #60 cap 11/03/24 Ibuprofen [Motrin] 600 mg PO BID PRN 30 Days #60 tab 11/03/24 Melatonin 5 mg PO HS 30 Days #30 tab 11/03/24 Multivitamins, Thera [Multivitamin 1 each PO DAILY 30 Days #30 tab 11/03/24 (formulary)] Nicotine 14Mg/24Hr Patch [Habitrol] 1 patch TRANSDERM DAILY 14 Days 11/03/24 #14 patch Paliperidone [Invega] 3 mg PO BID 30 Days #60 tab 11/03/24 Prazosin [Minipress] 2 mg PO HS 30 Days #60 cap 11/03/24 Sertraline [Zoloft] 150 mg PO DAILY 30 Days #90 tab 11/03/24 Simethicone Chew [Mylicon Chew] 80 mg PO BID PRN 15 Days #30 tab 11/03/24 Thiamine [Vitamin B-1] 100 mg PO DAILY 30 Days #30 tab 11/03/24 Topiramate [Topamax] 100 mg PO BID 30 Days #60 tab 11/03/24 Allergies Allergy/AdvReac Type Severity Reaction Status Date / Time trazodone AdvReac dizziness Verified 11/09/24 12:25 Review of Systems ROS Statement: Those systems with pertinent positive or pertinent negative responses have been documented in the HPI. ROS Other: All systems not noted in ROS Statement are negative. Past Medical History Past Medical History: Liver Disease, Renal Disease, Seizure Disorder, Supraventricular Tachycardia (SVT) Additional Past Medical History / Comment(s): SVT with cardiac ablation, lumbar DDD, bulging lumbar disc, ETOH abuse, alcohol withdrawals, pt states she has a seizure disorder and has alcohol withdrawal seizures with last seizure in 2020, drug abuse/pt states IV drug abuse, hepatitis C, lumbar DDD/bulging discs, migraines, sinus problems, past bilateral arm fractures/casted, past broken left ankle and leg/casted, ruptured spleen with surgery. History of Any Multi-Drug Resistant Organisms: ESBL Date of last positivie culture/infection: 01/17/22 MDRO Source:: ESBL URINE Past Surgical History: Bariatric Surgery, Cardiac Ablation, EPS, Orthopedic Surgery Additional Past Surgical History / Comment(s): Cardiac ablation for SVT, gastric sleeve, spleen repair, I&D L wrist. Past Anesthesia/Blood Transfusion Reactions: No Reported Reaction Additional Past Anesthesia/Blood Transfusion Reaction / Comment(s): Pt has clausterphobia. Past Psychological History: Anxiety, Bipolar, Depression, Panic Disorder Smoking Status: Current every day smoker, Vaper Past Alcohol Use History: Daily Past Drug Use History: Cocaine, Heroin, IV Drug Use, Marijuana, Methamphetamine, Opiates, Prescription Drug Abuse - Past Family History Father History Unknown: Yes Family Medical History: COPD, Diabetes Mellitus Mother History Unknown: Yes Family Medical History: Asthma Additional Family Medical History / Comment(s): pt reports mother had cyclic vomiting issues, substance abuse history Sister(s) Family Medical History: Supraventricular Tachycardia (SVT) Additional Family Medical History / Comment(s): Sister had SVT. She is recently from overdose. General Exam - General Exam Comments Initial Comments: PHYSICAL EXAM: General Impression: Alert and oriented x3, not in acute distress HEENT: Normocephalic atraumatic, extra-ocular movements intact, pupils equal and reactive to light bilaterally, mucous membranes moist. Cardiovascular: Heart regular rate and rhythm Chest: Able to complete full sentences, no retractions, no tachypnea Abdomen: abdomen soft, non-tender, non-distended, no organomegaly Musculoskeletal: Pulses present and equal in all extremities, no peripheral edema Motor: no focal deficits noted Neurological: CN II-XII grossly intact, no focal motor or sensory deficits noted Skin: Intact with no visualized rashes Psych: Normal affect and mood Limitations: no limitations Course Vital Signs 11/14/24 12:55 Temperature 98.8 F Pulse Rate 64 Respiratory 18 Rate Blood Pressure 136/84 O2 Sat by Pulse 100 Oximetry Medical Decision Making - Medical Decision Making Was pt. sent in by a medical professional or institution (, PA, [employer], urgent care, hospital, or long-term...) When possible be specific @ -No Did you speak to anyone other than the patient for history (EMS, parent, family, police, friend...)? What history was obtained from this source @ -No Did you review nursing and triage notes (agree or disagree)? Why? @ -I reviewed and agree with nursing and triage notes Were old charts reviewed (outside hosp., previous admission, EMS record, old EKG, old radiological studies, urgent care reports/EKG's, long-term records)? Report findings @ -No old charts were reviewed Differential Diagnosis (chest pain, altered mental status, abdominal pain women, abdominal pain men, vaginal bleeding, musculoskeletal, weakness, fever, dyspnea, syncope, headache, dizziness, GI bleed, back pain, seizure, CVA, palpatations, mental health)? @ -Differential Mental Health: Depression, anxiety, bipolar, psychosis, schizophrenia, borderline personality, situational depression, adjustment disorder, behavioral disorder, brain tumor, malingering, substance abuse, encephalopathy, medication reaction, dementia, hypothyroidism, degenerative neurologic disorder, lupus.... This is not meant to be all-inclusive list Differential Headache: Migraine, tension, cluster, carbon monoxide, central venous thrombosis, pension karma temporal arteritis, acute closure glaucoma, intercranial hemorrhage, mastoiditis, sinusitis, head injury, this is not meant to be an all-inclusive list. EKG interpreted by me (3pts min.). @ -None done X-rays interpreted by me (1pt min.). @ -None done CT interpreted by me (1pt min.). @ -None done U/S interpreted by me (1pt. min.). @ -None done What testing was considered but not performed or refused? (CT, X-rays, U/S, labs)? Why? @ -None What meds were considered but not given or refused? Why? @ -None Was smoking cessation discussed for >3mins.? @ -No Were there social determinants of health that impacted care today? How? (Homelessness, low income, unemployed, alcoholism, drug addiction, transportation, low edu. Level, literacy, decrease access to med. care, residential, rehab)? @ -No Was there de-escalation of care discussed even if they declined (Discuss DNR or withdrawal of care, Hospice)? DNR status @ -No What co-morbidities impacted this encounter? (DM, HTN, Smoking, COPD, CAD, Cancer, CVA, ARF, Chemo, Hep., AIDS, mental health diagnosis, sleep apnea, morbid obesity)? @ -Polysubstance abuse, psychiatric history Was patient admitted / discharged? Hospital course, mention meds given and route, prescriptions, significant lab abnormalities, going to OR and other pertinent info. @ -34-year-old female with headache and suicidal ideation. Vital signs stable. Physical examination is benign. Brain CT is negative reevaluated after some Ativan with improvement of her head symptoms. Patient medically cleared for EPS evaluation Patient eval by EPS will be admitted to inpatient psych unit Did you discuss the management of the patient with other professionals (professionals i.e. , PA, [employer], lab, RT, psych nurse, manager social work, call center consultant, teacher, animal control officer, case management rn)? Give summary @ -See above Was critical care preformed (if so, how long)? @ -No Undiagnosed new problem with uncertain prognosis? @ -No Drug Therapy requiring intensive monitoring for toxicity (Heparin, Nitro, Insulin, Cardizem)? @ -No Were any procedures done? @ -No Diagnosis/symptom? Acute, or Chronic, or Acute on Chronic? Uncomplicated (wi thout systemic symptoms) or Complicated (systemic symptoms)? @ -Acute headache, suicidal ideation Side effects of treatment? @ -No Exacerbation, Progression, or Severe Exacerbation? @ -No Poses a threat to life or bodily function? How? (Chest pain, USA, DC, pneumonia, PE, COPD, DKA, ARF, appy, cholecystitis, CVA, Diverticulitis, Homicidal, Suicidal, threat to staff... and all critical care pts) @ -yes - Lab Data Result diagrams: 11/14/24 13:38 11/14/24 13:38 Lab Results 11/14/24 11/14/24 11/14/24 Range/Units 13:38 13:38 13:39 WBC 5.4 (3.8-10.6) k/uL RBC 4.27 (3.80-5.40) m/uL Hgb 12.7 (11.4-16.0) gm/dL Hct 37.2 (34.0-46.0) % MCV 87.0 (80.0-100.0) fL MCH 29.7 (25.0-35.0) pg MCHC 34.1 (31.0-37.0) g/dL RDW 13.9 (11.5-15.5) % Plt Count 264 (150-450) k/uL MPV 8.3 Neutrophils % 72 % Lymphocytes % 22 % Monocytes % 4 % Eosinophils % 0 % Basophils % 0 % Neutrophils # 3.9 (1.3-7.7) k/uL Lymphocytes # 1.2 (1.0-4.8) k/uL Monocytes # 0.2 (0-1.0) k/uL Eosinophils # 0.0 (0-0.7) k/uL Basophils # 0.0 (0-0.2) k/uL Sodium 140 (137-145) mmol/L Potassium 4.1 (3.5-5.1) mmol/L Chloride 107 (98-107) mmol/L Carbon Dioxide 22 (22-30) mmol/L Anion Gap 11 mmol/L BUN 6 L (7-17) mg/dL Creatinine 0.58 (0.52-1.04) mg/dL Est GFR (CKD-EPI)AfAm >90 (>60 ml/min/1.73 sqM) Est GFR (CKD-EPI)NonAf >90 (>60 ml/min/1.73 sqM) Glucose 128 H (74-99) mg/dL Calcium 9.5 (8.4-10.2) mg/dL Urine HCG, Qual Not Detected (Not Detectd) Urine Opiates Screen (NotDetected) Ur Oxycodone Screen (NotDetected) Urine Methadone Screen (NotDetected) Ur Barbiturates Screen (NotDetected) U Tricyclic Antidepress (NotDetected) Ur Phencyclidine Scrn (NotDetected) Ur Amphetamines Screen (NotDetected) U Methamphetamines Scrn (NotDetected) U Benzodiazepines Scrn (NotDetected) Urine Cocaine Screen (NotDetected) U Marijuana (THC) Screen (NotDetected) Serum Alcohol <10 mg/dL 11/14/24 Range/Units 13:39 WBC (3.8-10.6) k/uL RBC (3.80-5.40) m/uL Hgb (11.4-16.0) gm/dL Hct (34.0-46.0) % MCV (80.0-100.0) fL MCH (25.0-35.0) pg MCHC (31.0-37.0) g/dL RDW (11.5-15.5) % Plt Count (150-450) k/uL MPV Neutrophils % % Lymphocytes % % Monocytes % % Eosinophils % % Basophils % % Neutrophils # (1.3-7.7) k/uL Lymphocytes # (1.0-4.8) k/uL Monocytes # (0-1.0) k/uL Eosinophils # (0-0.7) k/uL Basophils # (0-0.2) k/uL Sodium (137-145) mmol/L Potassium (3.5-5.1) mmol/L Chloride (98-107) mmol/L Carbon Dioxide (22-30) mmol/L Anion Gap mmol/L BUN (7-17) mg/dL Creatinine (0.52-1.04) mg/dL Est GFR (CKD-EPI)AfAm (>60 ml/min/1.73 sqM) Est GFR (CKD-EPI)NonAf (>60 ml/min/1.73 sqM) Glucose (74-99) mg/dL Calcium (8.4-10.2) mg/dL Urine HCG, Qual (Not Detectd) Urine Opiates Screen Not Detected (NotDetected) Ur Oxycodone Screen Not Detected (NotDetected) Urine Methadone Screen Not Detected (NotDetected) Ur Barbiturates Screen Not Detected (NotDetected) U Tricyclic Antidepress Not Detected (NotDetected) Ur Phencyclidine Scrn Not Detected (NotDetected) Ur Amphetamines Screen Not Detected (NotDetected) U Methamphetamines Scrn Not Detected (NotDetected) U Benzodiazepines Scrn Detected H (NotDetected) Urine Cocaine Screen Detected H (NotDetected) U Marijuana (THC) Screen Not Detected (NotDetected) Serum Alcohol mg/dL Disposition Clinical Impression: Suicidal ideation Disposition: ADMITTED IP TO THIS [facility] Condition: Fair Referrals: None,Stated [Primary Care Provider] - 1-2 days Decision Time: 17:48
[2024-11-14] MEDS: LORazepam 2 MG/ML INJ IV STA ×2 (14:14→16:43)
[2024-11-14 14:50] LABS: Basophils % (A) 0 %; Eosinophils % (A) 0 %; HCT 37.2 % (34.0-46.0); HGB 12.7 gm/dL (11.4-16.0); Lymphocytes # (A) 1.2 k/uL (1.0-4.8); Lymphocytes % (A) 22 %; MCH 29.7 pg (25.0-35.0); MCHC 34.1 g/dL (31.0-37.0); Mean Platelet Volume 8.3; Monocytes # (A) 0.2 k/uL (0-1.0); Monocytes % (A) 4 %; Neutrophils # (A) 3.9 k/uL (1.3-7.7); Neutrophils % (A) 72 %; Platelet Count 264 k/uL (150-450); RBC 4.27 m/uL (3.80-5.40); RDW 13.9 % (11.5-15.5); WBC 5.4 k/uL (3.8-10.6)
[2024-11-14 14:52] LABS: African American GFR (CKD) >90 (>60 ml/min/1.73 sqM); Alcohol <10 mg/dL; Anion Gap 11 mmol/L; Blood Urea Nitrogen 6 mg/dL (7-17); Calcium 9.5 mg/dL (8.4-10.2); Carbon Dioxide 22 mmol/L (22-30); Chloride 107 mmol/L (98-107); Glucose 128 mg/dL (74-99); Non-African American GFR(CKD) >90 (>60 ml/min/1.73 sqM); Sodium 140 mmol/L (137-145)
[2024-11-14 14:54] LABS: Potassium 4.1 mmol/L (3.5-5.1)
[2024-11-14 14:56] LABS: Amphetamine Screen,Urine Not Detected (NotDetected); Barbiturate Screen,Urine Not Detected (NotDetected); Benzodiazepines Screen,Urine Detected (NotDetected); Cocaine Screen,Urine Detected (NotDetected); Methadone Screen, Urine Not Detected (NotDetected); Opiate Screen,Urine Not Detected (NotDetected); Oxycodone Screen, Urine Not Detected (NotDetected); Phencyclidine Screen,Urine Not Detected (NotDetected); Tricyclic Antidepressant,Urine Not Detected (NotDetected); Urn Cannabinoid Scrn Not Detected (NotDetected)
--- NOTE | 2024-11-14 15:54 | CT ---
EXAMINATION TYPE: CT brain wo con DATE OF EXAM: 11/14/2024 3:01 PM COMPARISON: 06/03/2023. CLINICAL INDICATION: Female, 34 years old with history of headache, FLOWERS. TECHNIQUE: Brain: Axial CT images of the brain were obtained with coronal and sagittal reformats created and rev iewed. Contrast used: None. Oral contrast used: None. CT DLP: 1096 mGycm, Automated exposure control for dose reduction was used. FINDINGS: Brain: Extra-axial spaces: No abnormal extra-axial fluid collections. Ventricular system: Within normal limits Cerebral parenchyma: No acute intraparenchymal hemorrhage or mass effect. The caal-white junction is well differentiated. Cerebellum: Unremarkable. Mass effect: No evidence of midline shift. Intracranial vasculature: unremarkable Soft tissues: Normal. Calvarium/osseous structures: No depressed skull fracture. Paranasal sinuses and mastoid air cells: Mild scattered paranasal sinus disease. Visualized orbits: Orbital contents are intact. IMPRESSION: No acute intracranial process. [facility], , 11/14/2024 3:51 PM
[2024-11-14] MEDS ORDERED: MAGNESIUM HYDROXIDE 2,400 MG/30 ML CUP PO PRN (19:13)
[2024-11-14] MEDS ORDERED: hydrOXYzine HCL 50 MG/ML 1 ML VIAL IM PRN (19:13)
[2024-11-14] MEDS ORDERED: IBUPROFEN 600 MG TAB PO PRN (19:13)
[2024-11-14] MEDS ORDERED: HALOPERIDOL LACTATE 5 MG/ML 1 ML VIAL IM PRN (19:13)
[2024-11-14] MEDS: LORazepam 1 MG TAB PO PRN (20:40)
[2024-11-15] MEDS: haloperidoL 5 MG TAB PO PRN (00:01)
--- NOTE | 2024-11-15 08:04 | P.HP ---
Psychiatric H&P - . H&P Date: 11/15/24 History & Physical: Allergies Allergy/AdvReac Type Severity Reaction Status Date / Time trazodone AdvReac dizziness Verified 11/14/24 19:06 Vital Signs Temp 97.9 F 11/15/24 06:47 Pulse 69 11/15/24 06:47 Resp 16 11/15/24 06:47 BP 128/82 11/15/24 06:47 Pulse Ox 98 11/15/24 06:47 FiO2 Intake & Output 11/14/24 11/15/24 11/15/24 18:59 06:59 18:59 Weight 63.503 kg 76.204 kg Laboratory Last Values WBC 5.4 k/uL (3.8-10.6) 11/14/24 13:38 RBC 4.27 m/uL (3.80-5.40) 11/14/24 13:38 Hgb 12.7 gm/dL (11.4-16.0) 11/14/24 13:38 Hct 37.2 % (34.0-46.0) 11/14/24 13:38 MCV 87.0 fL (80.0-100.0) 11/14/24 13:38 MCH 29.7 pg (25.0-35.0) 11/14/24 13:38 MCHC 34.1 g/dL (31.0-37.0) 11/14/24 13:38 RDW 13.9 % (11.5-15.5) 11/14/24 13:38 Plt Count 264 k/uL (150-450) 11/14/24 13:38 MPV 8.3 11/14/24 13:38 Neutrophils % 72 % 11/14/24 13:38 Lymphocytes % 22 % 11/14/24 13:38 Monocytes % 4 % 11/14/24 13:38 Eosinophils % 0 % 11/14/24 13:38 Basophils % 0 % 11/14/24 13:38 Neutrophils # 3.9 k/uL (1.3-7.7) 11/14/24 13:38 Lymphocytes # 1.2 k/uL (1.0-4.8) 11/14/24 13:38 Monocytes # 0.2 k/uL (0-1.0) 11/14/24 13:38 Eosinophils # 0.0 k/uL (0-0.7) 11/14/24 13:38 Basophils # 0.0 k/uL (0-0.2) 11/14/24 13:38 Sodium 140 mmol/L (137-145) 11/14/24 13:38 Potassium 4.1 mmol/L (3.5-5.1) 11/14/24 13:38 Chloride 107 mmol/L (98-107) 11/14/24 13:38 Carbon Dioxide 22 mmol/L (22-30) 11/14/24 13:38 Anion Gap 11 mmol/L 11/14/24 13:38 BUN 6 mg/dL (7-17) L 11/14/24 13:38 Creatinine 0.58 mg/dL (0.52-1.04) 11/14/24 13:38 Est GFR (CKD-EPI)AfAm >90 (>60 ml/min/1.73 sqM) 11/14/24 13:38 Est GFR (CKD-EPI)NonAf >90 (>60 ml/min/1.73 sqM) 11/14/24 13:38 Glucose 128 mg/dL (74-99) H 11/14/24 13:38 Calcium 9.5 mg/dL (8.4-10.2) 11/14/24 13:38 Urine HCG, Qual Not Detected (Not Detectd) 11/14/24 13:39 Urine Opiates Screen Not Detected (NotDetected) 11/14/24 13:39 Ur Oxycodone Screen Not Detected (NotDetected) 11/14/24 13:39 Urine Methadone Screen Not Detected (NotDetected) 11/14/24 13:39 Ur Barbiturates Screen Not Detected (NotDetected) 11/14/24 13:39 U Tricyclic Antidepress Not Detected (NotDetected) 11/14/24 13:39 Ur Phencyclidine Scrn Not Detected (NotDetected) 11/14/24 13:39 Ur Amphetamines Screen Not Detected (NotDetected) 11/14/24 13:39 U Methamphetamines Scrn Not Detected (NotDetected) 11/14/24 13:39 U Benzodiazepines Scrn Detected (NotDetected) H 11/14/24 13:39 Urine Cocaine Screen Detected (NotDetected) H 11/14/24 13:39 U Marijuana (THC) Screen Not Detected (NotDetected) 11/14/24 13:39 Serum Alcohol <10 mg/dL 11/14/24 13:38 Influenza Type A (PCR) Not Detected (Not Detectd) 11/14/24 17:00 Influenza Type B (PCR) Not Detected (Not Detectd) 11/14/24 17:00 RSV (PCR) Not Detected (Not Detectd) 11/14/24 17:00 SARS-CoV-2 (PCR) Not Detected (Not Detectd) 11/14/24 17:00 11/15/24 07:45 reason for hospitalization: The patient was minimally cooperative and vague. Evidently she no longer had a place to stay. She also has not been taking her medicine for 2 or 3 weeks and the paranoia and moods have returned. She began to feel hopeless and suicide seem to make sense although she will not sure any specific plans. She has tried suicide in the past. History of present illness: This would be the 13th admission since 2015 to psychiatric units. Her last admission was on 10/24/2024, the previous on February 2022. She does not follow through with outpatient appointments or medications. Stresses in her life that her recent include a boyfriend she was with for a year and hope to get . However he got himself in long-term and she has been able to contact him for over a month. She returned to using substances and currently is homeless. Substance use: The patient has abused alcohol and opioids and methamphetamine but not marijuana.. She has been treated in the recent past with people nor from further opioid withdrawal. Reviewing her chart she is focused on getting benzodiazepines for anxiety. Current medications: Although she has not been taking her medicines she is supposed to be on gabapentin 600 twice a day, paliperidone 3 mg twice a day, doxepin 50 mg at night, Suboxone for withdrawal,Zoloft 150 in the morning, prazosin for nightmares at 2 mg. She said when she took these things it did not count the psychotic symptoms, but did not knock out the nightmares she does believe thatthe Zoloft helped his emotions but left her flat emotionally. She says the doxepin does help with sleep that is better than nothing. She is not overweight from it and does not have access appetite. Past medicines she's also been on risperidone Lexapro at 20 mg and Latuda Past diagnoses include: Personality disorder, bipolar 1 disorder with psychosis, PTSD, polysubstance abuse social history is sparse because the patient did not want to talk she is the second of 2 girls born to her parents who broke up when she was young. Her older sister young of, "an accident". Her mother young at age 54 of, "an accident" her maternal grandmother committed suicide and her first cousin on mother's side committed suicide. Her dad did remain involved with her but struggled with moods alcohol and substances. She said that she had a normal and early development. She was able to complete high school. No history. Some legal history including long-term but she did not want to talk about. Currently homeless and jobless although she says she is looking for a job and says she does have a way to get around. Mental status exam patient was somewhat drowsy but got up and came readily just did not want to talk very long she wanted to go back to sleep. She says that when she looks at her life she does feel hopeless and suicidal but she also hopes that she can get help and turn things around. She is oriented to person place and time gait and station are normal self-care is minimum eye contact is down. No evidence of responding to voices. She says she does struggle with paranoia that people don't like her and are talking about her. She hears voices that basically saying negative things about her. She has severe nightmares that are not helped by the prazosin.her math abilities are poor she was able to subtract 7 from 93 but could not subtract 7 from that. I gave her 3 things to remember she can remember to after 3 minutes. When asked to abstract was true about cats and snakes for she said nothing then she said they bite but I don't think she wanted to work very hard at it. When asked to abstract the proverb the grass looks greener on the side defense she thought for a while said go to the other side. She could spell world backward slowly Diagnosis: Polysubstance use disorder, borderline personality disorder, bipolar 1 psychosis, PTSD Plan reinstitute her medicines: Increase gabapentin to 900 3 times a day, restart the buprenorphine, at night give her doxepin and all of the paliperidone, decrease Zoloft 200 in the morning, increase prazosin to 4 mg give that a couple days bump it up to 6 if she still having nightmares. Assessment: The patient does use the hospital inpatient unit in an inappropriate way. She knows that she get herself into tight spots and then come here and get help so she allows herself to not go to follow-up appointments not take her medicines use drugs and then come for help. However with the loss of the boyfriend and the loss of a place to stay I do believe that she is a danger to herself. Our goal must be not only to stabilizer but help her to take a serious look at why she does not follow-up after discharge. Prognosis: Guarded I think we can get her stabilized in the short run but based on her pattern he will be cyclic
[2024-11-15] MEDS: GABAPENTIN 300 MG CAP PO SCH (08:45)
[2024-11-15] MEDS: BUPRENORPHINE-NALOX 8-2 MG TAB 1 EACH TAB.SUBL SL SCH (08:46)
[2024-11-15] MEDS: SERTRALINE 100 MG TAB PO SCH (08:46)
[2024-11-15] MEDS: NICOTINE 14MG/24HR PATCH TRANSDERM SCH (08:46)
[2024-11-15] MEDS: PALIPERIDONE 3 MG TAB.ER.24 PO STA (08:46)
[2024-11-15] MEDS: hydrOXYzine HCL 25 MG TAB PO PRN (10:25)
[2024-11-15] MEDS: ACETAMINOPHEN TAB 325 MG TAB PO PRN (15:20)
[2024-11-15] MEDS: PRAZOSIN 1 MG CAP PO SCH (20:34)
[2024-11-15] MEDS: PALIPERIDONE 6 MG TAB.ER.24 PO SCH (20:34)
[2024-11-15] MEDS: DOXEPIN 25 MG CAP PO SCH (20:34)
--- NOTE | 2024-11-16 00:56 | P.PN ---
Progress Note - Text Progress Note Date: 11/16/24 Attempted to see the patient in the MHU at 2200 on 11/15. The patient refused to be seen or be evaluated. Will attempt to see the patient again tomorrow.
--- NOTE | 2024-11-16 11:05 | P.PN ---
Progress Note - Text Interval History: Patient was seen at the bedside and was directable and agreeable to speak with typewriter operator automatic in the office. When asked about the events that preceded her admission she explained that when she left the hospital she went to the home that her dad aunt and grandmother share. She felt that the same challenges she had with them were essentially right back where they had been previously particularly with her feeling that she was being mistreated. She went on to say that because of these dynamics she left her family home and went to stay with a friend where "weird things were happening". She found herself feeling "paranoid" and noted that she has been particularly anxious, describing her anxiety as "way over 10". Prior t o admission her sleep and appetite were both decreased. She has been taking her medication, however she left the medications at her friend's house and was unable to retrieve them. She describes her mood today as "anxious, nervous, and scared" but she does feel safe in the hospital and notices that she has been able to rest since coming here. She feels she can "breathe again". At this time patient denies any suicidal or homicidal ideations, intent or plan. Patient denies any auditory, visual hallucinations and denies any paranoia or delusions. Patient denies any side effects from the medications and has been adherent with meds. CIWA Scores in last 24 hours: 11, 18, 14, 0, 0. Mental Status Exam: General Appearance: Patient appears to be stated age is alert, directable, and cooperative. Poor hygiene and appears disheveled. Behavior: Patient is calmly seated without any agitated behavior. Somewhat drowsy. Speech: Patient's speech is fluent and nonpressured. Mood/Affect: Mood is "anxious, nervous, scared", affect is incongruent and constricted. Suicidality/Homicidality: Patient denies having any suicidal or homicidal ideation, intent, or plan. Perceptions: Patient denies any visual hallucinations and denies any auditory hallucinations. She reports feeling at times as if the things happening around her are not real. Though content/process: There is no overt evidence of any delusional thought content, though some paranoia, and thought process is linear and goal-directed. Some paucity of thought. Memory and concentration: AOX3, grossly intact for the purposes of this session Judgment and insight: Impaired ASSESSMENT: PTSD Alcohol use disorder Opioid use disorder, on maintenance therapy Cannabis use disorder Unspecified psychotic disorder (consider substance-induced psychosis) Treatment non-adherence PLAN: - Patient continues to meet criteria for inpatient psychiatric admission for symptom stabilization and safety. Patient has signed adult voluntary form and medication consent and was placed in patient's chart. - Medications: - Continue Gabapentin 600 mg TID - Continue Sertraline 100 mg daily (decreased on admission due to concern for emotional blunting) for mood and trauma-related symptoms - Continue Doxepin 50 mg at bedtime for insomnia - Continue Paliperidone 6 mg at bedtime for mood and psychotic symptoms - Continue Prazosin 4 mg at bedtime for trauma-related nightmares - Also on Suboxone 8mg/2mg BID for opioid use disorder (started during prior admission and resumed this admission) - Continue CIWA protocol with Lorazepam as indicated - When necessary Hydroxyzine and Haldol for agitation/aggression. - NRT -nicotine patch - SW on board for discharge planning. Encouraged the patient to participate in milieu.
[2024-11-16] MEDS: MAG HYDROX/AL HYDROX/SIMETH 355 ML BOTTLE PO PRN (15:05)
[2024-11-16] MEDS: LORazepam 1 MG TAB PO PRN (17:13)
--- NOTE | 2024-11-17 09:57 | P.PN ---
Progress Note - Text Progress Note Date: 11/17/24 Interval History: Patient was seen at the bedside and was directable and agreeable to speak with real estate underwriter in the office. Patient appeared to be somewhat irritable today with real estate underwriter. Claims that her medications were not working when she left the hospital. States that she stopped taking them after a couple of days. Claims that she believes that she got kicked out of her father's house, currently homeless. When confronted about the urine drug screen being positive for cocaine patient became defensive and states that "I use that once". Claims that she was hearing voices again and believes that they were "vampires" that inhabited the planet. She also made accusations that the [facility] system was fake and that she is not being prescribed opiates. We spoke about transitioning to a long-acting injection which she appeared to be okay with. She seems a bit hesitant about going to rehab. At this time patient denies any suicidal or homicidal ideations, intent or plan. Patient denies any auditory, visual hallucinations. Continues to endorse paranoia today. Patient denies any side effects from the medications and has been adherent with meds. Mental Status Exam: General Appearance: Patient appears to be stated age is alert, directable, and irritable with real estate underwriter. Poor hygiene and appears disheveled. Behavior: Patient is calmly seated without any agitated behavior. Somewhat drowsy. Improving mildly. Argumentative. Speech: Patient's speech is fluent and nonpressured. Irritable tone. Mood/Affect: Mood is "anxious", affect is incongruent and constricted. Suicidality/Homicidality: Patient denies having any suicidal or homicidal ideation, intent, or plan. Perceptions: Patient denies any visual hallucinations. Claims that she is hearing voices. Though content/process: some paranoia, and thought process is linear and goal- directed. Some paucity of thought. Delusional, multiple loosely formed Memory and concentration: AOX3, grossly intact for the purposes of this session Judgment and insight: Chronically impaired ASSESSMENT: PTSD Alcohol use disorder Opioid use disorder, on maintenance therapy Cannabis use disorder Unspecified psychotic disorder (consider substance-induced psychosis) Treatment non-adherence PLAN: - Patient continues to meet criteria for inpatient psychiatric admission for symptom stabilization and safety. Patient has signed adult voluntary form and medication consent and was placed in patient's chart. - Medications: - Continue Gabapentin 600 mg TID - Continue Sertraline 100 mg daily (decreased on admission due to concern for emotional blunting) for mood and trauma-related symptoms - Continue Doxepin 50 mg at bedtime for insomnia -Increase paliperidone 6 mg at bedtime + 3 mg daily for mood and psychotic symptoms. patient will need to be transitioned onto [facility] to help ensure compliance - Continue Prazosin 4 mg at bedtime for trauma-related nightmares - Suboxone 8mg/2mg BID for opioid use disorder (started during prior admission and resumed this admission) - Continue CIWA protocol with Lorazepam as indicated - When necessary Hydroxyzine and Haldol for agitation/aggression. - NRT -nicotine patch - SW on board for discharge planning. Encouraged the patient to participate in milieu. pt is currently homeless, hesitant/unsure about rehab at this time.
[2024-11-17] MEDS: PALIPERIDONE 3 MG TAB.ER.24 PO SCH (10:00)
--- NOTE | 2024-11-18 10:19 | P.PN ---
Progress Note - Text Progress Note Date: 11/18/24 Less irritable Interval History: Patient was seen at the bedside and was directable and agreeable to speak with check writer salesperson in the office. Patient was less irritable today with check writer salesperson, more cooperative. States that she has not taking her medications, continues to endorse anxiety. She asked more about having her Suboxone increased, wants to remain on the Ativan. Claims that the withdrawal symptoms have been gradually improving, she remains on CIWA protocol as needed Ativan. We spoke again about transitioning onto long-acting injection she is okay with that. She appears to be less delusional today, endorsing less paranoia. States that she did not sleep well last night had ongoing nightmares. Claims that her appetite is mildly improving. Claims that she is feeling depressed today. At this time patient denies any suicidal or homicidal ideations, intent or plan. Patient denies any auditory, visual hallucinations. Continues to endorse paranoia today. Patient denies any side effects from the medications and has been adherent with meds. Mental Status Exam: General Appearance: Patient appears to be stated age is alert, directable, and less irritable with check writer salesperson. Improving hygiene and appears disheveled. Behavior: Patient is calmly seated without any agitated behavior. Improving mildly. Speech: Patient's speech is fluent and nonpressured. Irritable today Mood/Affect: Mood is "anxious and depressed", affect is congruent and improving affect Suicidality/Homicidality: Patient denies having any suicidal or homicidal ideation, intent, or plan. Perceptions: Patient denies any visual hallucinations. Claims that she is hearing voices. Though content/process: Worsening paranoia today, and thought process is linear and goal-directed. Some paucity of thought Memory and concentration: AOX3, grossly intact for the purposes of this session Judgment and insight: Chronically impaired, improving mildly ASSESSMENT: Unspecified psychotic disorder PTSD Alcohol use disorder Opioid use disorder, on maintenance therapy Cannabis use disorder Treatment non-adherence PLAN: - Patient continues to meet criteria for inpatient psychiatric admission for symptom stabilization and safety. Patient has signed adult voluntary form and medication consent and was placed in patient's chart. - Medications: - Continue Gabapentin 600 mg TID - increase Sertraline 150 mg daily - Continue Doxepin 50 mg at bedtime for insomnia - decrease paliperidone 6 mg at bedtime for mood and psychotic symptoms. agreeable to VEGA today Invega sustenna 234 mg IM - increase Prazosin 5 mg at bedtime for trauma-related nightmares - Suboxone 8mg/2mg BID for opioid use disorder (started during prior admission and resumed this admission) - Continue CIWA protocol with Lorazepam as indicated. will d/c tomorrow - When necessary Hydroxyzine and Haldol for agitation/aggression. - NRT -nicotine patch - SW on board for discharge planning. Encouraged the patient to participate in milieu. pt is currently homeless, hesitant/unsure about rehab at this time. will be calling [facility] today. likely discharge early next week once patient gets transitioned onto [facility].
[2024-11-18] MEDS: SERTRALINE 50 MG TAB PO STA (11:23)
[2024-11-18] MEDS: PALIPERIDONE IM 234 MG/1.5 ML SYG IM STA (12:26)
[2024-11-18] MEDS: PRAZOSIN 1 MG CAP PO SCH (19:57)
[2024-11-19] MEDS: SERTRALINE 50 MG TAB PO SCH (08:28)
--- NOTE | 2024-11-19 10:24 | P.PN ---
Progress Note - Text Progress Note Date: 11/19/24 Interval History: Patient was seen at the bedside and was directable and agreeable to speak with senior writer in the office. Patient was less irritable today. she remains focused on increasing her suboxone at this time and was argumentative about it. She was comparing self to other patients. Claims that she still dealing with anxiety and also back pain. She is denying any withdrawal symptoms at this time. Claims that she slept a bit better last night. He received the long-acting injection yesterday. Tolerated it well. She appears to be less delusional today, endorsing less paranoia. Claims that her appetite is mildly improving. Claims that she is feeling depressed today. At this time patient denies any suicidal or homicidal ideations, intent or plan. Patient denies any auditory, visual hallucinations. Patient denies any side effects from the medications and has been adherent with meds. Mental Status Exam: General Appearance: Patient appears to be stated age is alert, directable, and less irritable with senior writer. Improving hygiene and appears disheveled. improving today Behavior: Patient is calmly seated without any agitated behavior. Improving mildly Speech: Patient's speech is fluent and nonpressured. less Irritable today Mood/Affect: Mood is "anxious", affect is congruent and improving affect Suicidality/Homicidality: Patient denies having any suicidal or homicidal ideation, intent, or plan. Perceptions: Patient denies any visual hallucinations. denies hearing voices. Though content/process: thought process is linear and goal-directed. somatically preoccupied. Some paucity of thought, improving mildly Memory and concentration: AOX3, grossly intact for the purposes of this session Judgment and insight: Chronically impaired, improving mildly ASSESSMENT: Unspecified psychotic disorder PTSD Alcohol use disorder Opioid use disorder, on maintenance therapy Cannabis use disorder Treatment non-adherence PLAN: - Patient continues to meet criteria for inpatient psychiatric admission for symptom stabilization and safety. Patient has signed adult voluntary form and medication consent and was placed in patient's chart. - Medications: - Continue Gabapentin 600 mg TID - continue Sertraline 150 mg daily - Continue Doxepin 50 mg at bedtime for insomnia - decrease paliperidone 3 mg at bedtime for mood and psychotic symptoms, then d/c. Patient received Invega sustenna 234 mg IM on 11/18/24 and second dose of 156 mg IM on 11/23, monthly dose will be due on 12/21 - continue Prazosin 5 mg at bedtime for trauma-related nightmares - Suboxone 8mg/2mg BID for opioid use disorder (started during prior admission and resumed this admission) - Discontinue CIWA protocol - When necessary Ativan and Hydroxyzine and Haldol for agitation/aggression. - NRT - nicotine patch - SW on board for discharge planning. Encouraged the patient to participate in milieu. pt is currently homeless, hesitant/unsure about rehab at this time. will be calling [facility] today. likely discharge early next week once patient gets transitioned onto [facility].
[2024-11-19] MEDS: NICOTINE GUM (POLACRILEX) 2 MG GUM BUCCAL PRN (11:46)
[2024-11-19] MEDS: LORazepam 0.5 MG TAB PO PRN (11:48)
[2024-11-19] MEDS: IBUPROFEN 600 MG TAB PO PRN (12:22)
[2024-11-19] MEDS: PALIPERIDONE 3 MG TAB.ER.24 PO ONE (20:25)
--- NOTE | 2024-11-20 01:40 | P.CONS ---
History of Present Illness - Reason for Consult Consult date: 11/20/24 - History of Present Illness The patient is a 34-year-old female with a PMH of polysubstance abuse and alcohol abuse who had presented to the emergency room with complaints of suicidal ideation and headache. The patient was admitted to the mental health unit where she was seen and evaluated while accompanied by an MHU animal laboratory technician. The patient reports that she had been struggling with her substance use and having last used methamphetamine and crack cocaine just a few days prior to arrival. The patient also reported a mild intermittent headache which she attributed to her alcohol use from which she feels that she is withdrawing. She refused to elaborate on her alcohol use. The patient also reported chronic mild diffuse abdominal discomfort rated at a 5 out of 10 at the time of interview. She reports no specific alleviating or assessment features. Review of systems: Pertinent positives and negatives as discussed in HPI, a complete review of systems was performed and all other systems are negative. Physical examination: General: non toxic, no distress, appears at stated age, overweight Derm: no unusual rashes/lesions, no unusual ecchymoses, warm, dry Head: atraumatic, normocephalic, symmetric Eyes: EOMI, no lid lag, anicteric sclera ENT: Nose and ears atraumatic, no thrush, no pharyngeal erythema Neck: trachea midline, supple Mouth: no lip lesion, mucus membranes moist Cardiovascular: S1S2 reg, no murmur, no edema Lungs: CTA bilateral, no rhonchi, no rales , no accessory muscle use Abdominal: soft, nontender to palpation, no guarding Ext: no gross muscle atrophy, no contractures, Neuro: No gross focal neuro deficits noted Psych: Alert, oriented, appropriate affect Assessment: Polysubstance abuse Headaches Depression and suicidal ideation Imaging: CT brain in the emergency room was unremarkable Data Review: Laboratory evaluation revealed urine toxicology positive for cocaine and benzodiazepines with respiratory viral panel negative with WBC count 5.4, hemoglobin 12.7, sodium 140, potassium 4.9, BUN 6, creatinine 0.58, glucose 128 Plan: Strongly advised on the importance of cessation from substance use Tylenol as needed for headaches Defer management of depression and suicidal ideation to the primary psychiatry service Thank you for allowing us to participate in the care of this patient. We will follow peripherally. Do not hesitate to contact us with questions. Someone can be reached from the [facility] hospitalist group at all hours of the day at [phone]. Past Medical History Past Medical History: Liver Disease, Renal Disease, Seizure Disorder, Supraventricular Tachycardia (SVT) Additional Past Medical History / Comment(s): SVT with cardiac ablation, lumbar DDD, bulging lumbar disc, ETOH abuse, alcohol withdrawals, pt states she has a seizure disorder and has alcohol withdrawal seizures with last seizure in 2020, drug abuse/pt states IV drug abuse, hepatitis C, lumbar DDD/bulging discs, migraines, sinus problems, past bilateral arm fractures/casted, past broken left ankle and leg/casted, ruptured spleen with surgery. History of Any Multi-Drug Resistant Organisms: ESBL Year Discovered:: 01/17/22 MDRO Source:: ESBL URINE Past Surgical History: Bariatric Surgery, Cardiac Ablation, EPS, Orthopedic Surgery Additional Past Surgical History / Comment(s): Cardiac ablation for SVT, gastric sleeve, spleen repair, I&D L wrist. Past Anesthesia/Blood Transfusion Reactions: No Reported Reaction Additional Past Anesthesia/Blood Transfusion Reaction / Comm: Pt has clausterphobia. Smoking Status: Current every day smoker - Past Family History Father History Unknown: Yes Family Medical History: COPD, Diabetes Mellitus Mother History Unknown: Yes Family Medical History: Asthma Additional Family Medical History / Comment(s): pt reports mother had cyclic vomiting issues, substance abuse history Sister(s) Family Medical History: Supraventricular Tachycardia (SVT) Additional Family Medical History / Comment(s): Sister had SVT. She is recently from overdose. Medications and Allergies Home Medications Medication Instructions Recorded Confirmed Type No Known Home Medications 11/14/24 11/14/24 History Allergies Allergy/AdvReac Type Severity Reaction Status Date / Time trazodone AdvReac dizziness Verified 11/14/24 19:06 Physical Exam Vitals: Vital Signs Temp Pulse Resp BP 11/19/24 05:13 97.1 F L 106 H 15 97/65 Results CBC & Chem 7: 11/14/24 13:38 11/14/24 13:38
--- NOTE | 2024-11-20 10:38 | P.PN ---
Progress Note - Text Progress Note Date: 11/20/24 Interval History: Patient was seen today in the hallways and was directable and agreeable to speak with specifications writer in the office. Patient claims that she is feeling "off balance" and states that she is feeling a bit depressed today. Also continues to focus on her anxiety. She initially was stating that she is feeling better overall however. She was less argumentative today, less focused on controlled medications. States that she had a bad nightmare last night, we spoke about other options to help with nightmares he wants to have her prazosin increased for tonight. Claims that she is eating fairly trying to go to some groups. She was asking about the next dose of the injection. She appears to be less delusional today, endorsing less paranoia. At this time patient denies any suicidal or homicidal ideations, intent or plan. Patient denies any auditory, visual hallucinations. Patient denies any side effects from the medications and has been adherent with meds. Mental Status Exam: General Appearance: Patient appears to be stated age is alert, directable, and less irritable with specifications writer. Improving hygiene and appears disheveled. improving today Behavior: Patient is calmly seated without any agitated behavior. Improving mildly. Attempts to cooperate Speech: Patient's speech is fluent and nonpressured. Mood/Affect: Mood is "anxious", affect is congruent and improving affect Suicidality/Homicidality: Patient denies having any suicidal or homicidal ideation, intent, or plan. Perceptions: Patient denies any visual hallucinations. denies hearing voices. Though content/process: thought process is linear and goal-directed. somatically preoccupied. Some paucity of thought, improving mildly Memory and concentration: AOX3, grossly intact for the purposes of this session Judgment and insight: Chronically impaired, improving mildly ASSESSMENT: Unspecified psychotic disorder PTSD Alcohol use disorder Opioid use disorder, on maintenance therapy Cannabis use disorder Treatment non-adherence PLAN: - Patient continues to meet criteria for inpatient psychiatric admission for symptom stabilization and safety. Patient has signed adult voluntary form and medication consent and was placed in patient's chart. - Medications: - Continue Gabapentin 600 mg TID - continue Sertraline 150 mg daily - Continue Doxepin 50 mg at bedtime for insomnia - d/c paliperidone PO. Patient received Invega sustenna 234 mg IM on 11/18/24 and second dose of 156 mg IM on 11/23, monthly dose will be due on 12/21 - increase Prazosin 6 mg at bedtime for trauma-related nightmares - Suboxone 8mg/2mg BID for opioid use disorder (started during prior admission and resumed this admission) - When necessary Ativan and Hydroxyzine and Haldol for agitation/aggression. - NRT - nicotine patch - SW on board for discharge planning. Encouraged the patient to participate in milieu. pt is currently homeless, hesitant/unsure about rehab at this time. will be calling [facility] today. likely discharge early next week once patient gets transitioned onto [facility].
[2024-11-20] MEDS: FOLIC ACID 1 MG TAB PO SCH (13:58)
[2024-11-20] MEDS: MULTIVITAMINS, THERA 1 EACH TAB PO SCH (13:58)
[2024-11-20] MEDS: THIAMINE 100 MG TAB PO SCH (13:58)
[2024-11-20] MEDS: LITHIUM CARBONATE 300 MG CAP PO SCH (19:59)
[2024-11-20] MEDS: PRAZOSIN 1 MG CAP PO SCH (21:10)
--- NOTE | 2024-11-21 13:35 | P.PN ---
Progress Note - Text Progress Note Date: 11/21/24 Dictation was produced using [employer] dictation software. Please excuse any grammatical, word or spelling errors. Interval history: Patient was seen in the hallway and was directable and agreeable to speak with the scientific technical writer in the office for psychiatric follow-up. She states that she is depressed with bad anxiety today, reported that she has very bad anxiety everyday. States that her mood is "sad" today, reported that she has been feeling that was since she woke up this morning. She states that she is not feeling that she is ready to leave. She states that she has fleeting suicidal thoughts without any intention or plan, she denied any homicidal thoughts, intention or plan. She reported that she has been having auditory hallucination while at the lunch room today, telling her that "something is behind me," states that she has been hearing voices for more than 6 months, and reported that visual hallucination which was started few months ago. States that she was seeing the TV playing a different script than what was their. She reported that she feels paranoid however does not know why. She admitted to interrupted sleep last night, and reported that she woke up after a nightmare that she used to have after her mother . Reported that she is scared to go to sleep. She claims good appetite. She states that she is getting along well with everyone in the unit and feels safe. She reported that she is compliant with her medications, denied any current side effects. Reported that [place] was started last night, and she reported that she is tolerating well, reported that she was on Li in the past. Pt was fixated on increasing her Gabapentin and was educated on working on her coping skills since new medication was just started and Prazosin was just increased, she agreed. Mental status exam: General Appearance: Patient appears to be stated age is alert, directable, calm, cooperative during the interview. She has fair hygiene. Behavior: Patient is calmly seated without any agitated behavior. Improving mildly. Attempts to cooperate Speech: Patient's speech is fluent and nonpressured. Mood/Affect: Mood is "sad", affect is congruent and improving affect Suicidality/Homicidality: Patient denies having any homicidal ideation, intent, or plan. Reported fleeting suicidal thoughts without any intention or plan. Perceptions: Patient denies any visual hallucinations. Reported that she was hearing voices during lunch today. Though content/process: thought process is linear and goal-directed. Somatically preoccupied. Some paucity of thought, improving mildly Memory and concentration: AOX3, grossly intact for the purposes of this session Judgment and insight: Chronically impaired, improving mildly Impression: Unspecified psychotic disorder PTSD Alcohol use disorder Opioid use disorder, on maintenance therapy Cannabis use disorder Treatment non-adherence Assessment/Plan: Continue with current diagnosis. Patient continues to meet criteria for inpatient psychiatric admission for symptom stabilization and safety.n Patient will be maintained on current psychotropic medication regimen. Monitor for medication compliance and for any psychotropic medication side effects. Will continue to monitor ongoing response to treatment. Encouraged participation in milieu.
--- NOTE | 2024-11-22 14:22 | P.PN ---
Progress Note - Text Progress Note Date: 11/22/24 Dictation was produced using [employer] dictation software. Please excuse any grammatical, word or spelling errors. Interval history: Patient was seen in the hallway and was directable and agreeable to speak with the short story writer in the office for psychiatric follow-up. The pt states that she is feeling tired today, reported that her mood is "depressed and anxious." Reported that she is anxious about where she will go when she leave the hospital, reported that she may consider going to another mental hospital, and reported that she does not know if her medication are enough. She reported that she is so anxious about leaving the hospital and reported that "it is so cold outside and I have no place to go to." She admitted to moderate depression which she rated at 7/10, and high anxiety 10/10. She denied any current, self-harm or homicidal thoughts or behavior, intention or plan. He reported that she does not have any auditory or visual hallucination with that she continue to believe that the TV is playing a different script, and reported that she is still paranoid about the TV. Admitted to good sleep and good appetite. She has been taking her medication, denied any current side effects, reported that she will need higher doses of her medication and she was asking about more Suboxone, she is fixated on her symptoms and her medication, may be there is secondary gain concerns. Psychoeducation was provided into her current medication, risk, benefit and side effect discussed, since patient was asking for higher doses of her medication. She was educated on rehab placement following this hospitalization however she declined and reported that she attended rehab more than 8 times in the past and it was not helpful. She was advised to speak with healthcare social worker tomorrow to discuss placement options. Mental status exam: General Appearance: Patient appears to be stated age is alert, directable, calm, cooperative during the interview. She has fair hygiene. Behavior: Patient is calmly seated without any agitated behavior. Improving mildly. Attempts to cooperate Speech: Patient's speech is fluent and nonpressured. Mood/Affect: Mood is "depressed and anxious", affect is congruent and improving affect Suicidality/Homicidality: Patient denies having any homicidal ideation, intent, or plan. Reported fleeting suicidal thoughts without any intention or plan. Perceptions: Patient denies any visual hallucinations, denied any auditory hallucinations. Though content/process: thought process is linear and goal-directed. Somatically preoccupied. Some paucity of thought, improving mildly Memory and concentration: AOX3, grossly intact for the purposes of this session Judgment and insight: Chronically impaired, improving mildly Impression: Unspecified psychotic disorder PTSD Alcohol use disorder Opioid use disorder, on maintenance therapy Cannabis use disorder Treatment non-adherence Assessment/Plan: Continue with current diagnosis. Patient continues to meet criteria for inpatient psychiatric admission for symptom stabilization and safety. Patient will be maintained on current psychotropic medication regimen. Monitor for medication compliance and for any psychotropic medication side effects. Will continue to monitor ongoing response to treatment. Encouraged pa rticipation in milieu. Education was provided into substance use rehab, patient declined at this time, she was encouraged to consider rehab at some point.
--- NOTE | 2024-11-23 11:25 | P.PN ---
Progress Note - Text Progress Note Date: 11/23/24 Interval History: Patient was seen today in the [facility] and was directable and agreeable to speak with content writer in the office. Patient states that she is "not good" today. She was fairly vague about her symptoms today. Claims that she is feeling a bit paranoid towards others. We spoke about giving the second dose of the long- acting injection today which she is okay with. She continues to be fairly manipulative, being evasive about discharge planning. She believes that "no one is helping me". She is endorsing anxiety, continues to be focused on increasing her Suboxone. She claims that she is sleeping at nighttime, has a fair appetite. Claims that she is eating fairly trying to go to some groups. At this time patient denies any suicidal or homicidal ideations, intent or plan. Patient denies any auditory, visual hallucinations. Patient denies any side effects from the medications and has been adherent with meds. Towards the end of the interview, content writer attempted to speak with patient about discharge planning and patient continues to be evasive about it, claims that she does not want to go to rehab. She continues to blame others that she does not have a place to go, she got upset with content writer and left the office and began yelling. Mental Status Exam: General Appearance: Patient appears to be stated age is alert, directable, and less irritable with content writer. Improving hygiene and grooming today. Behavior: Patient is calmly seated without any agitated behavior. Improving mildly. Attempts to cooperate Speech: Patient's speech is fluent and nonpressured. Mood/Affect: Mood is "anxious and depressed", affect is congruent and improving affect Suicidality/Homicidality: Patient denies having any suicidal or homicidal ideation, intent, or plan. Perceptions: Patient denies any visual hallucinations. denies hearing voices. Though content/process: thought process is linear and goal-directed. somatically preoccupied. Some paucity of thought, improving mildly Memory and concentration: AOX3, grossly intact for the purposes of this session Judgment and insight: Chronically impaired ASSESSMENT: Unspecified psychotic disorder PTSD Alcohol use disorder Opioid use disorder, on maintenance therapy Cannabis use disorder Treatment non-adherence PLAN: - Patient continues to meet criteria for inpatient psychiatric admission for symptom stabilization and safety. Patient has signed adult voluntary form and medication consent and was placed in patient's chart. - Medications: - Continue Gabapentin 600 mg TID - continuesertraline 150 mg daily - Continue Doxepin 50 mg at bedtime for insomnia - Patient received Invega sustenna 234 mg IM on 11/18/24 and second dose of 156 mg IM will be given on 11/23, monthly dose will be due on 12/21 of 156 mg IM. - Prazosin 6 mg at bedtime for trauma-related nightmares - Suboxone 8mg/2mg BID for opioid use disorder - When necessary Ativan and Hydroxyzine and Haldol for agitation/aggression. - NRT - nicotine patch - SW on board for discharge planning. Encouraged the patient to participate in milieu. pt is currently homeless, refusing rehab at this time. has not been calling womens shelters. does not have a place to go at this time. SW to speak with her today and discuss options after speaking with her gaeddidian.
[2024-11-23] MEDS: PALIPERIDONE IM 156 MG/ML SYG IM STA (12:28)
[2024-11-24 07:21] VITALS: RESP 16
--- NOTE | 2024-11-24 11:23 | P.PN ---
Progress Note - Text Progress Note Date: 11/24/24 Interval History: Patient was seen today in the lounge and was directable and agreeable to speak with typewriter aligner in the office. Patient has been more visible on the unit, interacting with other patients. She continues to be fairly manipulative, focused on her anxiety and Ativan and also Suboxone. She continues to state that she does not know where she will be discharged to or where to go. We spoke about several different options, she continues to refuse rehab, she states that she is okay with going to [facility]. Continues to state that she does have some depression. She continues to be fairly manipulative, being evasive about discharge planning. She claims that she is sleeping at nighttime, has a fair appetite. Claims that she is eating fairly trying to go to some groups. At this time patient denies any suicidal or homicidal ideations, intent or plan. Patient denies any auditory, visual hallucinations. Patient denies any side effects from the medications and has been adherent with meds. Mental Status Exam: General Appearance: Patient appears to be stated age is alert, directable, and more cooperative today with typewriter aligner, evasive at times and superficial. Improving hygiene and grooming today. Behavior: Patient is calmly seated without any agitated behavior. Improving mildly. Manipulative Speech: Patient's speech is fluent and nonpressured. Mood/Affect: Mood is "the same", affect is congruent and improving affect Suicidality/Homicidality: Patient denies having any suicidal or homicidal ideation, intent, or plan. Perceptions: Patient denies any visual hallucinations. denies hearing voices. Though content/process: thought process is linear and goal-directed. somatically preoccupied. Some paucity of thought, improving mildly. Focused on medications especially controlled medications Memory and concentration: AOX3, grossly intact for the purposes of this session Judgment and insight: Chronically impaired and manipulative, improving mildly ASSESSMENT: Unspecified psychotic disorder PTSD Alcohol use disorder Opioid use disorder, on maintenance therapy Cannabis use disorder Treatment non-adherence PLAN: - Patient continues to meet criteria for inpatient psychiatric admission for symptom stabilization and safety. Patient has signed adult voluntary form and medication consent and was placed in patient's chart. - Medications: - Continue Gabapentin 600 mg TID - Increase sertraline 200 mg daily - increase lithobid to 450 mg qhs for mood adjunct/suicidal thoughts - Continue Doxepin 50 mg at bedtime for insomnia -add buspar 10 mg tid for anxiety - Patient received Invega sustenna 234 mg IM on 11/18/24 and second dose of 156 mg IM will be given on 11/23, monthly dose will be due on 12/21 of 156 mg IM. - Prazosin 6 mg at bedtime for trauma-related nightmares - Suboxone 8mg/2mg BID for opioid use disorder - When necessary Hydroxyzine and Haldol for agitation/aggression. - NRT - nicotine patch - SW on board for discharge planning. Encouraged the patient to participate in milieu. pt is currently homeless, refusing rehab at this time. has not been calling [facility] shelters. does not have a place to go at this time. SW to speak with her today and discuss options after speaking with her kaylynnan. Likely discharge tomorrow to long term in [place] with transportation
[2024-11-24] MEDS: busPIRone HCl 10 MG TAB PO SCH ×2 (11:41→15:45)
[2024-11-24] MEDS ORDERED: OLANZapine 10 MG VIAL IM PRN ×2 (14:26→14:28)
[2024-11-24] MEDS ORDERED: OLANZapine 5 MG TAB PO PRN (14:27)
[2024-11-24] MEDS: hydrOXYzine pamoate 25 MG CAP PO PRN (16:46)
[2024-11-24] MEDS: LITHIUM CARBONATE ER 450 MG TABLET.ER PO SCH (20:01)
[2024-11-25] MEDS: SERTRALINE 100 MG TAB PO SCH (08:03)
--- NOTE | 2024-11-25 11:10 | P.PN ---
Progress Note - Text Progress Note Date: 11/25/24 Interval History: Patient was seen today in the hallway directable and agreeable to speak with sondra dugan in the office. Patient continues to be focused on anxiety medications, was agreeable to try Zyprexa today as needed. She continues to ask about her other controlled medications. States that she is happy that she got into rehab. She will be going there tomorrow morning. Patient has been more visible on the unit, interacting with other patients. Claims that her depression has been improving. She claims that she is sleeping at nighttime, has a fair appetite. Claims that she is eating fairly trying to go to some groups. At this time patient denies any suicidal or homicidal ideations, intent or plan. Patient denies any auditory, visual hallucinations. Patient denies any side effects from the medications and has been adherent with meds. Mental Status Exam: General Appearance: Patient appears to be stated age is alert, directable, and more cooperative today with assembly instructions writer, superficial. Improving hygiene and grooming today. Behavior: Patient is calmly seated without any agitated behavior. Improving mildly. Manipulative, improving mildly Speech: Patient's speech is fluent and nonpressured. Mood/Affect: Mood is "a bit better, but still anxious", affect is congruent and improving affect Suicidality/Homicidality: Patient denies having any suicidal or homicidal ideation, intent, or plan. Perceptions: Patient denies any visual hallucinations. denies hearing voices. Though content/process: thought process is linear and goal-directed. somatically preoccupied. Some paucity of thought, improving mildly. Focused on medications especially controlled medications and also focused on discharge planning Memory and concentration: AOX3, grossly intact for the purposes of this session Judgment and insight: Chronically impaired and manipulative, improving mildly ASSESSMENT: Unspecified psychotic disorder PTSD Alcohol use disorder Opioid use disorder, on maintenance therapy Cannabis use disorder Treatment non-adherence PLAN: - Patient continues to meet criteria for inpatient psychiatric admission for symptom stabilization and safety. Patient has signed adult voluntary form and medication consent and was placed in patient's chart. - Medications: - Continue Gabapentin 600 mg TID - continue sertraline 200 mg daily - lithobid 450 mg qhs for mood adjunct/suicidal thoughts -Increase doxepin 75 mg at bedtime for insomnia - buspar 20 mg tid for anxiety - Patient received Invega sustenna 234 mg IM on 11/18/24 and second dose of 156 mg IM will be given on 11/23, monthly dose will be due on 12/21 of 156 mg IM. - Prazosin 6 mg at bedtime for trauma-related nightmares - Suboxone 8mg/2mg BID for opioid use disorder -added zyprexa prn for severe anxiety and agitation - When necessary Hydroxyzine and Haldol for agitation/aggression - NRT - nicotine patch - SW on board for discharge planning. Encouraged the patient to participate in milieu. pt is currently homeless. Patient ended up doing the screening for rehab, got accepted to [facility] rehab tomorrow morning. Discharge tomorrow morning
[2024-11-25] MEDS: OLANZapine 5 MG TAB PO PRN (11:14)
[2024-11-25] MEDS: DOXEPIN 25 MG CAP PO SCH (20:08)
[2024-11-26 07:10] VITALS: BP 111/73; PULSE 72; TEMP 97.8
--- NOTE | 2024-11-26 09:20 | P.DS ---
Providers Date of admission: 11/14/24 19:03 Expected date of discharge: 11/26/24 Attending physician: Casper Hernandez MD Consults: 11/14/24 19:13 Consult Physician Routine Consulting Provider: Margarito Physician Consult Reason/Comments: Medical H&P Do you want consulting provider notified?: Yes Primary care physician: Stated None - Discharge Diagnosis(es) (1) Unspecified psychosis Status: Acute Priority: High (2) PTSD (post-traumatic stress disorder) Status: Acute Priority: High (3) Opioid use disorder, severe, on maintenance therapy Status: Acute Priority: Medium (4) Cannabis use disorder Status: Acute Priority: Medium (5) Non compliance w medication regimen Status: Acute Priority: Medium (6) Alcohol use disorder Status: Acute Priority: High Hospital Course: Admission HPI: Admission note was completed by DR Faulkner "the patient was minimally cooperative and vague. Evidently she no longer had a place to stay. She also has not been taking her medicine for 2 or 3 weeks and the paranoia and moods have returned. She began to feel hopeless and suicide seem to make sense although she will not sure any specific plans. She has tried suicide in the past. This would be the 13th admission since 2016 to psychiatric units. Her last admission was on 10/24/2024, the previous on February 2022. She does not follow through with outpatient appointments or medications. Stresses in her life that her recent include a boyfriend she was with for a year and hope to get . However he got himself in longterm and she has been able to contact him for over a month. She returned to using substances and currently is homeless." Hospital course: Upon admission to the unit patient was directable and agreeable to commence treatment and signed adult voluntary form. Patient was initially bizarre psychotic however with time of treatment. She eventually got along well with other patients on the unit and followed unit protocol. Patient was compliant with the medications and denied any side effects throughout hospital course. Patient was started on her home dose of gabapentin 600 mg 3 times daily, Zoloft 200 mg daily for mood/anxiety, Lithobid 450 mg nightly for mood adjunct/suicidal thoughts, doxepin 75 mg nightly for insomnia/mood, BuSpar 20 mg 3 times daily for anxiety, prazosin 6 mg nightly for trauma related nightmares, Zyprexa as needed for severe anxiety, Suboxone 8 mg / 2 mg tablets twice daily for opioid use disorder maintenance therapy. Patient was given Invega Sustenna 234 mg IM on 11/18, second dose of 156 mg IM given on 11/23, maintenance dose of 156 mg IM will be due on 12/21. Patient spoke of her stressors and engaged in therapy both group and individual. Patient was also seen by medical team for history and physical exam. Throughout the course of the hospitalization patient gradually improved with regards to mood, anxiety, psychosis, paranoia, sleep and returned back to their baseline level of functioning. On the day of discharge patient denied any suicidal or homicidal ideations intent or plan denied any auditory or visual hallucinations. Patient endorsed wanting to live for their health and family. The patient denied any access to guns or weapons. Patient denied any paranoia and did not endorse any delusions. Patient does have a significant history of substance abuse and was counseled on abstaining from all substances including alcohol and marijuana. Patient ended up agreeing [facility]. Patient was excepted at [facility], she will be given transportation there this morning. Patient was also counseled on the medications and need for regular compliance and was encouraged to follow-up with their outpatient appointment for mental health and also for primary care. Mental status exam: General Appearance: Patient appears to be stated age is alert, pleasant, and cooperative. Patient is in no acute distress and has improved hygiene and grooming Behavior: Patient is calmly seated without any agitated behavior. Speech: Patient's speech is fluent and nonpressured. Mood/Affect: Patient reports their mood is "good", affect is congruent and euthymic. Suicidality/Homicidality: Patient denies having any suicidal or homicidal ideation intent or plan. Perceptions: Patient denies any auditory or visual hallucinations. Though content/process: There is no evidence of any delusional thought content and thought process is linear and goal-directed. Memory and concentration: AOX3, grossly intact for the purposes of this session. Can spell "WORLD" backwards correctly. Judgment and insight: Chronically poor, however has improved with guarded prognosis Impression: Unspecified psychosis PTSD Alcohol use disorder Opioid use disorder on maintenance therapy Cannabis use disorder Noncompliance with medication regimen Plan: -Continue with discharge today as patient has improved and stabilized psychiatrically and is not currently an imminent threat to themself and/or others. Patient will remain at chronically elevated risk for harm to self and/or others due to their impulsivity and substance abuse. -Continue medications: Gabapentin 600 mg 3 times daily, Zoloft 200 mg daily for mood/anxiety, Lithobid 450 mg nightly for mood adjunct/suicidal thoughts, doxepin 75 mg nightly for insomnia/mood, BuSpar 20 mg 3 times daily for anxiety, prazosin 6 mg nightly for trauma related nightmares, Zyprexa 5 mg twice daily as needed for anxiety, Suboxone and 8 mg / 2 mg tablets twice a day for opioid use disorder maintenance therapy. Patient was given Invega Sustenna 234 mg IM on 11/18, second dose of 156 mg IM given on 11/23, maintenance dose of 156 mg IM will be due on 12/21 -Patient was counseled on the need for medication compliance and appropriate follow-up at mental health and also primary care for medical issues. Patient verbalized understanding and agreed. -Social work to help coordinate patients discharge today. also to ensure safe home environment that guns/weapons are either removed from the home or locked away. Social work also to arrange for patients follow up appointments with [facility] for psychiatric care along with follow up with primary care provider. -Patient counseled on abstaining from recreational drugs and marijuana and alcohol. Was informed/educated on the adverse effects on their physical and mental health. Patient verbally agreed and understood. Patient will be going to [facility] today. -Patient was instructed to return to the hospital or seek immediate medical care if their psychiatric or medical symptoms do worsen or reoccur. Allergies Allergy/AdvReac Type Severity Reaction Status Date / Time trazodone AdvReac dizziness Verified 11/14/24 19:06 Laboratory Results WBC 5.4 k/uL (3.8-10.6) 11/14/24 13:38 RBC 4.27 m/uL (3.80-5.40) 11/14/24 13:38 Hgb 12.7 gm/dL (11.4-16.0) 11/14/24 13:38 Hct 37.2 % (34.0-46.0) 11/14/24 13:38 MCV 87.0 fL (80.0-100.0) 11/14/24 13:38 MCH 29.7 pg (25.0-35.0) 11/14/24 13:38 MCHC 34.1 g/dL (31.0-37.0) 11/14/24 13:38 RDW 13.9 % (11.5-15.5) 11/14/24 13:38 Plt Count 264 k/uL (150-450) 11/14/24 13:38 MPV 8.3 11/14/24 13:38 Neutrophils % 72 % 11/14/24 13:38 Lymphocytes % 22 % 11/14/24 13:38 Monocytes % 4 % 11/14/24 13:38 Eosinophils % 0 % 11/14/24 13:38 Basophils % 0 % 11/14/24 13:38 Neutrophils # 3.9 k/uL (1.3-7.7) 11/14/24 13:38 Lymphocytes # 1.2 k/uL (1.0-4.8) 11/14/24 13:38 Monocytes # 0.2 k/uL (0-1.0) 11/14/24 13:38 Eosinophils # 0.0 k/uL (0-0.7) 11/14/24 13:38 Basophils # 0.0 k/uL (0-0.2) 11/14/24 13:38 Sodium 140 mmol/L (137-145) 11/14/24 13:38 Potassium 4.1 mmol/L (3.5-5.1) 11/14/24 13:38 Chloride 107 mmol/L (98-107) 11/14/24 13:38 Carbon Dioxide 22 mmol/L (22-30) 11/14/24 13:38 Anion Gap 11 mmol/L 11/14/24 13:38 BUN 6 mg/dL (7-17) L 11/14/24 13:38 Creatinine 0.58 mg/dL (0.52-1.04) 11/14/24 13:38 Est GFR (CKD-EPI)AfAm >90 (>60 ml/min/1.73 sqM) 11/14/24 13:38 Est GFR (CKD-EPI)NonAf >90 (>60 ml/min/1.73 sqM) 11/14/24 13:38 Glucose 128 mg/dL (74-99) H 11/14/24 13:38 Calcium 9.5 mg/dL (8.4-10.2) 11/14/24 13:38 Urine HCG, Qual Not Detected (Not Detectd) 11/14/24 13:39 Urine Opiates Screen Not Detected (NotDetected) 11/14/24 13:39 Ur Oxycodone Screen Not Detected (NotDetected) 11/14/24 13:39 Urine Methadone Screen Not Detected (NotDetected) 11/14/24 13:39 Ur Barbiturates Screen Not Detected (NotDetected) 11/14/24 13:39 U Tricyclic Antidepress Not Detected (NotDetected) 11/14/24 13:39 Ur Phencyclidine Scrn Not Detected (NotDetected) 11/14/24 13:39 Ur Amphetamines Screen Not Detected (NotDetected) 11/14/24 13:39 U Methamphetamines Scrn Not Detected (NotDetected) 11/14/24 13:39 U Benzodiazepines Scrn Detected (NotDetected) H 11/14/24 13:39 Urine Cocaine Screen Detected (NotDetected) H 11/14/24 13:39 U Marijuana (THC) Screen Not Detected (NotDetected) 11/14/24 13:39 Serum Alcohol <10 mg/dL 11/14/24 13:38 Influenza Type A (PCR) Not Detected (Not Detectd) 11/14/24 17:00 Influenza Type B (PCR) Not Detected (Not Detectd) 11/14/24 17:00 RSV (PCR) Not Detected (Not Detectd) 11/14/24 17:00 SARS-CoV-2 (PCR) Not Detected (Not Detectd) 11/14/24 17:00 Vital Signs Temp 97.8 F 11/26/24 07:10 Pulse 72 11/26/24 07:10 Resp 16 11/26/24 07:10 BP 111/73 11/26/24 07:10 Pulse Ox 98 11/26/24 07:10 FiO2 Patient Condition at Discharge: Fair Plan - Discharge Summary Discharge Rx Participant: No New Discharge Prescriptions: New busPIRone HCl [Buspar] 20 mg PO TID 30 Days #180 tab Nicotine 14Mg/24Hr Patch [Habitrol] 1 patch TRANSDERM DAILY 14 Days #14 patch Nicotine Gum (Polacrilex) [Nicorette] 2 mg BUCCAL Q4HR PRN 30 Days #180 pieceofgum PRN Reason: Nicotine Cravings Buprenorphine-Nalox 8-2 mg Tab [Suboxone 8-2 mg Tab] 1 each SL BID tab Acetaminophen Tab [Tylenol] 650 mg PO Q4HR PRN tab PRN Reason: Mild Pain (Scale 1 To 3) hydrOXYzine pamoate [Vistaril] 50 mg PO Q8HR PRN 30 Days #180 cap PRN Reason: Anxiety Thiamine [Vitamin B-1] 100 mg PO DAILY 30 Days #30 tab Sertraline [Zoloft] 200 mg PO DAILY 30 Days #60 tab OLANZapine [ZyPREXA] 5 mg PO BID PRN 30 Days #60 tablet PRN Reason: agitation/sever anxiety Folic Acid 1 mg PO DAILY 30 Days #30 tab Gabapentin 600 mg PO TID 30 Days #90 tab [place] Carbonate ER [Lithobid] 450 mg PO HS 30 Days #30 tab Prazosin [Minipress] 6 mg PO HS 30 Days #180 cap Ibuprofen [Motrin] 600 mg PO Q8H PRN 30 Days #180 tab PRN Reason: Moderate To Severe Pain (4-10) Multivitamins, Thera [Multivitamin (formulary)] 1 each PO DAILY 30 Days #30 tab Doxepin [SINEquan] 75 mg PO HS 30 Days #90 cap Paliperidone IM [Invega Sustenna] 156 mg IM QMONTHLY #1 each Discharge Medication List Acetaminophen Tab [Tylenol] 650 mg PO Q4HR PRN tab 11/25/24 [Rx] Buprenorphine-Nalox 8-2 mg Tab [Suboxone 8-2 mg Tab] 1 each SL BID tab 11/25/24 [Rx] Doxepin [SINEquan] 75 mg PO HS 30 Days #90 cap 11/25/24 [Rx] Folic Acid 1 mg PO DAILY 30 Days #30 tab 11/25/24 [Rx] Gabapentin 600 mg PO TID 30 Days #90 tab 11/25/24 [Rx] Ibuprofen [Motrin] 600 mg PO Q8H PRN 30 Days #180 tab 11/25/24 [Rx] [place] Carbonate ER [Lithobid] 450 mg PO HS 30 Days #30 tab 11/25/24 [Rx] Multivitamins, Thera [Multivitamin (formulary)] 1 each PO DAILY 30 Days #30 tab 11/25/24 [Rx] Nicotine 14Mg/24Hr Patch [Habitrol] 1 patch TRANSDERM DAILY 14 Days #14 patch 11/25/24 [Rx] Nicotine Gum (Polacrilex) [Nicorette] 2 mg BUCCAL Q4HR PRN 30 Days #180 pieceofgum 11/25/24 [Rx] OLANZapine [ZyPREXA] 5 mg PO BID PRN 30 Days #60 tablet 11/25/24 [Rx] Paliperidone IM [Invega Sustenna] 156 mg IM QMONTHLY #1 each 11/25/24 [Rx] Prazosin [Minipress] 6 mg PO HS 30 Days #180 cap 11/25/24 [Rx] Sertraline [Zoloft] 200 mg PO DAILY 30 Days #60 tab 11/25/24 [Rx] Thiamine [Vitamin B-1] 100 mg PO DAILY 30 Days #30 tab 11/25/24 [Rx] busPIRone HCl [Buspar] 20 mg PO TID 30 Days #180 tab 11/25/24 [Rx] hydrOXYzine pamoate [Vistaril] 50 mg PO Q8HR PRN 30 Days #180 cap 11/25/24 [Rx] Follow up Appointment(s)/Referral(s): Argelia Khanab [Other] - 11/26/24 12:00 pm None,Stated [Primary Care Provider] - 1-2 days Patient Instructions/Handouts: How to Stop Smoking (DC), Bipolar Disorder (DC) Activity/Diet/Wound Care/Special Instructions: [facility] Discharge Info Avoid the use of street drugs and alcohol. Take all medications as prescribed. When you are in need of refills on your medications, please contact your outpatient medical provider and/or outpatient psychiatrist. Please go to your scheduled outpatient appointments for aftercare treatment. If symptoms return or become worse, call the crisis line at or and/or visit the nearest emergency room for assistance. National Suicide and Crisis Lifeline - call or text 988 Discharge Disposition: OTHER INSTITUTION NOT DEFINED
== END 2024-11-26 08:48 | DRG 750 ==
LOC: EC 12:37 → 3MHU 19:03
PROVIDERS: ADMIT Psychiatry & Neurology Psychiatry; ATTEND Psychiatry & Neurology Psychiatry
DX: F29 Unspecified psychosis not due to a substance or known physiological condition (principal); F10.139 Alcohol abuse with withdrawal, unspecified; F11.20 Opioid dependence, uncomplicated; F14.10 Cocaine abuse, uncomplicated; F60.3 Borderline personality disorder; R45.851 Suicidal ideations; T42.6X6A Underdosing of other antiepileptic and sedative-hypnotic drugs, initial encounter; T50.7X6A Underdosing of analeptics and opioid receptor antagonists, initial encounter; T44.6X6A Underdosing of alpha-adrenoreceptor antagonists, initial encounter; F43.10 Post-traumatic stress disorder, unspecified; F17.210 Nicotine dependence, cigarettes, uncomplicated; Z91.128 Patient's intentional underdosing of medication regimen for other reason; Z59.00 Homelessness unspecified; Z79.899 Other long term (current) drug therapy; Z81.4 Family history of other substance abuse and dependence
CPT/HCPCS: 36415; 70450; 80048; 80306; 80320; 81025; 82075; 85025; 87636; 93005; 96374; 96376; 99285

== ENCOUNTER 2025-01-12 09:46 | Inpatient (IN) | payer MEDICAID, OTHER ==
--- NOTE | 2025-01-12 11:23 | ED ---
Psych HPI - General Chief Complaint: Psychiatric Symptoms Stated Complaint: anxiety/mental health Time Seen by Provider: 01/12/25 09:57 Source: patient, RN notes reviewed Mode of arrival: ambulatory Limitations: no limitations - History of Present Illness Initial Comments: 34-year-old female presents emergency department chief complaint of depression anxiety suicide nation. Patient states she has not had her Ativan in days. Patient states she just feels unstable. She does admit to alcohol use yesterday denies any recent drug use. Patient denies any physical harm but states that she is worried that she may harm herself. - Related Data Previous Rx's Medication Instructions Recorded Acetaminophen Tab [Tylenol] 650 mg PO Q4HR PRN tab 11/25/24 Buprenorphine-Nalox 8-2 mg Tab 1 each SL BID tab 11/25/24 [Suboxone 8-2 mg Tab] Doxepin [SINEquan] 75 mg PO HS 30 Days #90 cap 11/25/24 Folic Acid 1 mg PO DAILY 30 Days #30 tab 11/25/24 Gabapentin 600 mg PO TID 30 Days #90 tab 11/25/24 Ibuprofen [Motrin] 600 mg PO Q8H PRN 30 Days #180 tab 11/25/24 [place] Carbonate ER [Lithobid] 450 mg PO HS 30 Days #30 tab 11/25/24 Multivitamins, Thera [Multivitamin 1 each PO DAILY 30 Days #30 tab 11/25/24 (formulary)] Nicotine 14Mg/24Hr Patch [Habitrol] 1 patch TRANSDERM DAILY 14 Days 11/25/24 #14 patch Nicotine Gum (Polacrilex) 2 mg BUCCAL Q4HR PRN 30 Days #180 11/25/24 [Nicorette] pieceofgum OLANZapine [ZyPREXA] 5 mg PO BID PRN 30 Days #60 tablet 11/25/24 Paliperidone IM [Invega Sustenna] 156 mg IM QMONTHLY #1 each 11/25/24 Prazosin [Minipress] 6 mg PO HS 30 Days #180 cap 11/25/24 Sertraline [Zoloft] 200 mg PO DAILY 30 Days #60 tab 11/25/24 Thiamine [Vitamin B-1] 100 mg PO DAILY 30 Days #30 tab 11/25/24 busPIRone HCl [Buspar] 20 mg PO TID 30 Days #180 tab 11/25/24 hydrOXYzine pamoate [Vistaril] 50 mg PO Q8HR PRN 30 Days #180 cap 11/25/24 Allergies Allergy/AdvReac Type Severity Reaction Status Date / Time lithium Allergy Confusion Verified 01/12/25 09:51 trazodone AdvReac dizziness Verified 11/14/24 19:06 Review of Systems ROS Statement: Those systems with pertinent positive or pertinent negative responses have been documented in the HPI. ROS Other: All systems not noted in ROS Statement are negative. Past Medical History Past Medical History: Liver Disease, Renal Disease, Seizure Disorder, Supraven tricular Tachycardia (SVT) Additional Past Medical History / Comment(s): SVT with cardiac ablation, lumbar DDD, bulging lumbar disc, ETOH abuse, alcohol withdrawals, pt states she has a seizure disorder and has alcohol withdrawal seizures with last seizure in 2020, drug abuse/pt states IV drug abuse, hepatitis C, lumbar DDD/bulging discs, migraines, sinus problems, past bilateral arm fractures/casted, past broken left ankle and leg/casted, ruptured spleen with surgery. History of Any Multi-Drug Resistant Organisms: ESBL Date of last positivie culture/infection: 01/17/22 MDRO Source:: ESBL URINE Past Surgical History: Bariatric Surgery, Cardiac Ablation, EPS, Orthopedic Surgery Additional Past Surgical History / Comment(s): Cardiac ablation for SVT, gastric sleeve, spleen repair, I&D L wrist. Past Anesthesia/Blood Transfusion Reactions: No Reported Reaction Additional Past Anesthesia/Blood Transfusion Reaction / Comment(s): Pt has clausterphobia. Past Psychological History: Anxiety, Bipolar, Depression, Panic Disorder Smoking Status: Current every day smoker Past Alcohol Use History: None Reported Past Drug Use History: None Reported - Past Family History Father History Unknown: Yes Family Medical History: COPD, Diabetes Mellitus Mother History Unknown: Yes Family Medical History: Asthma Additional Family Medical History / Comment(s): pt reports mother had cyclic vomiting issues, substance abuse history Sister(s) Family Medical History: Supraventricular Tachycardia (SVT) Additional Family Medical History / Comment(s): Sister had SVT. She is recently from overdose. General Exam Limitations: no limitations General appearance: alert, in no apparent distress, anxious Head exam: Present: atraumatic, normocephalic, normal inspection Eye exam: Present: normal appearance, PERRL, EOMI. Absent: scleral icterus, conjunctival injection, periorbital swelling ENT exam: Present: normal exam, normal oropharynx, mucous membranes moist Neck exam: Present: normal inspection, full ROM. Absent: tenderness, meningismus, lymphadenopathy Respiratory exam: Present: normal lung sounds bilaterally. Absent: respiratory distress, wheezes, rales, rhonchi, stridor Cardiovascular Exam: Present: normal rhythm, tachycardia, normal heart sounds. Absent: systolic murmur, diastolic murmur, rubs, gallop, clicks Neurological exam: Present: alert, oriented X3 Psychiatric exam: Present: anxious Skin exam: Present: warm, dry, intact, normal color. Absent: rash Course Vital Signs 01/12/25 09:47 Temperature 98.1 F Pulse Rate 106 H Respiratory 20 Rate Blood Pressure 146/84 O2 Sat by Pulse 99 Oximetry Medical Decision Making - Medical Decision Making Was pt. sent in by a medical professional or institution (, PA, GUEST RELATION OFFICER, urgent care, hospital, or usp...) When possible be specific @ -No Did you speak to anyone other than the patient for history (EMS, parent, family, police, friend...)? What history was obtained from this source @ -No Did you review nursing and triage notes (agree or disagree)? Why? @ -I reviewed and agree with nursing and triage notes Were old charts reviewed (outside hosp., previous admission, EMS record, old EKG, old radiological studies, urgent care reports/EKG's, usp records)? Report findings @ -No old charts were reviewed Differential Diagnosis (chest pain, altered mental status, abdominal pain women, abdominal pain men, vaginal bleeding, weakness, fever, dyspnea, syncope, headache, dizziness, GI bleed, back pain, seizure, CVA, palpatations, mental health, musculoskeletal)? @ -Differential Mental Health Depression, anxiety, bipolar, psychosis, schizophrenia, borderline personality, situational depression, adjustment disorder, behavioral disorder, brain tumor, malingering, substance abuse, encephalopathy, medication reaction, dementia, hypothyroidism, degenerative neurologic disorder, lupus.... This is not meant to be all-inclusive list EKG interpreted by me (3pts min.). @ -None X-rays interpreted by me (1pt min.). @ -None done CT interpreted by me (1pt min.). @ -None done U/S interpreted by me (1pt. min.). @ -None done What testing was considered but not performed or refused? (CT, X-rays, U/S, labs)? Why? @ -None What meds were considered but not given or refused? Why? @ -None Did you discuss the management of the patient with other professionals (professionals i.e. Dr., PA, GUEST RELATION OFFICER, lab, RT, psych nurse, social science instructor, student services coordinator, teacher, patient safety officer, case reviewer)? Give summary @ -EPS evaluated patient recommended inpatient treatment Was smoking cessation discussed for >3mins.? @ -No Was critical care preformed (if so, how long)? @ -No Were there social determinants of health that impacted care today? How? (Homelessness, low income, unemployed, alcoholism, drug addiction, transportation, low edu. Level, literacy, decrease access to med. care, snf, rehab)? @ -No Was there de-escalation of care discussed even if they declined (Discuss DNR or withdrawal of care, Hospice)? DNR status @ -No What co-morbidities impacted this encounter? (DM, HTN, Smoking, COPD, CAD, Cancer, CVA, ARF, Chemo, Hep., AIDS, mental health diagnosis, sleep apnea, morbid obesity)? @ -None Was patient admitted / discharged? Hospital course, mention meds given and route, prescriptions, significant lab abnormalities, going to OR and other pertinent info. @ -Admitted to 3 W. Undiagnosed new problem with uncertain prognosis? @ -No Drug Therapy requiring intensive monitoring for toxicity (Heparin, Nitro, Insulin, Cardizem)? @ -No Were any procedures done? @ -No Diagnosis/symptom? @ -Depression suicide ideation Acute, or Chronic, or Acute on Chronic? @ -Acute Uncomplicated (without systemic symptoms) or Complicated (systemic symptoms)? @ -Complicated Side effects of treatment? @ -No Exacerbation, Progression, or Severe Exacerbation? @ -No Poses a threat to life or bodily function? How? (Chest pain, USA, DC, pneumonia, PE, COPD, DKA, ARF, appy, cholecystitis, CVA, Diverticulitis, Homicidal, Suicidal, threat to staff... and all critical care pts) @ -Yes suicidal - Lab Data Lab Results 01/12/25 01/12/25 Range/Units 10:31 10:48 Urine Opiates Screen Not Detected (NotDetected) Ur Oxycodone Screen Not Detected (NotDetected) Urine Methadone Screen Not Detected (NotDetected) Ur Barbiturates Screen Not Detected (NotDetected) U Tricyclic Antidepress Detected H (NotDetected) Ur Phencyclidine Scrn Not Detected (NotDetected) Ur Amphetamines Screen Not Detected (NotDetected) U Methamphetamines Scrn Detected H (NotDetected) U Benzodiazepines Scrn Detected H (NotDetected) Urine Cocaine Screen Not Detected (NotDetected) U Marijuana (THC) Screen Not Detected (NotDetected) SARS-CoV-2 (PCR) Not Detected (Not Detectd) Disposition Clinical Impression: Depression, Suicidal ideation Disposition: TRANSFER TO PSYCH HOSP/UNIT Condition: Fair Referrals: Tony Connolly MD [Primary Care Provider] - 1-2 days Time of Disposition: 11:39
[2025-01-12] MEDS: LORazepam 1 MG TAB PO STA (11:24)
[2025-01-12 11:34] LABS: Amphetamine Screen,Urine Not Detected (NotDetected); Barbiturate Screen,Urine Not Detected (NotDetected); Benzodiazepines Screen,Urine Detected (NotDetected); Cocaine Screen,Urine Not Detected (NotDetected); Methadone Screen, Urine Not Detected (NotDetected); Opiate Screen,Urine Not Detected (NotDetected); Oxycodone Screen, Urine Not Detected (NotDetected); Phencyclidine Screen,Urine Not Detected (NotDetected); Tricyclic Antidepressant,Urine Detected (NotDetected); Urn Cannabinoid Scrn Not Detected (NotDetected)
[2025-01-12] MEDS ORDERED: MAGNESIUM HYDROXIDE 2,400 MG/30 ML CUP PO PRN (13:08)
[2025-01-12] MEDS ORDERED: HALOPERIDOL LACTATE 5 MG/ML 1 ML VIAL IM PRN (13:08)
[2025-01-12] MEDS ORDERED: LORazepam 2 MG/ML INJ IM PRN (13:08)
[2025-01-12] MEDS: NICOTINE 14MG/24HR PATCH TRANSDERM SCH (13:36)
[2025-01-12] MEDS: haloperidoL 5 MG TAB PO PRN (14:14)
[2025-01-12] MEDS: LORazepam 1 MG TAB PO PRN (14:14)
[2025-01-12] MEDS: MAG HYDROX/AL HYDROX/SIMETH 355 ML BOTTLE PO PRN (17:12)
[2025-01-12] MEDS: busPIRone HCl 10 MG TAB PO SCH (20:10)
[2025-01-12] MEDS: haloperidoL 1 MG TAB PO SCH (20:11)
[2025-01-12] MEDS: PRAZOSIN 1 MG CAP PO SCH (20:11)
[2025-01-12] MEDS: DOXEPIN 25 MG CAP PO SCH (20:11)
[2025-01-12] MEDS: PREGABALIN 75 MG CAP PO SCH (20:12)
[2025-01-13] MEDS: ACETAMINOPHEN TAB 325 MG TAB PO PRN (04:10)
[2025-01-13] MEDS: SERTRALINE 100 MG TAB PO SCH (08:06)
[2025-01-13 08:09] LABS: Basophils % (A) 0 %; Eosinophils # (A) 0.1 k/uL (0-0.7); Eosinophils % (A) 1 %; HCT 36.9 % (34.0-46.0); HGB 11.3 gm/dL (11.4-16.0); Hypochromasia Slight; Lymphocytes # (A) 1.3 k/uL (1.0-4.8); Lymphocytes % (A) 35 %; MCH 27.7 pg (25.0-35.0); MCHC 30.6 g/dL (31.0-37.0); MCV 90.5 fL (80.0-100.0); Mean Platelet Volume 8.3; Monocytes # (A) 0.2 k/uL (0-1.0); Monocytes % (A) 6 %; Neutrophils # (A) 2.1 k/uL (1.3-7.7); Neutrophils % (A) 56 %; Platelet Count 181 k/uL (150-450); RBC 4.08 m/uL (3.80-5.40); RDW 13.2 % (11.5-15.5); WBC 3.8 k/uL (3.8-10.6)
[2025-01-13 08:18] LABS: ALT 55 U/L (4-34); AST 52 U/L (14-36); African American GFR (CKD) >90 (>60 ml/min/1.73 sqM); Albumin 4.2 g/dL (3.5-5.0); Alkaline Phosphatase 64 U/L (38-126); Anion Gap 7 mmol/L; Bilirubin, Delta 0.1 mg/dL (0.0-0.2); Bilirubin,Unconjugated 0.5 mg/dL (0.0-1.1); Blood Urea Nitrogen 13 mg/dL (7-17); Calcium 9.1 mg/dL (8.4-10.2); Carbon Dioxide 27 mmol/L (22-30); Chloride 105 mmol/L (98-107); Glucose 92 mg/dL (74-99); Non-African American GFR(CKD) >90 (>60 ml/min/1.73 sqM); Potassium 4.6 mmol/L (3.5-5.1); Sodium 139 mmol/L (137-145); Total Bilirubin 0.6 mg/dL (0.2-1.3); Total Protein 6.9 g/dL (6.3-8.2)
[2025-01-13] MEDS: NON FORMULARY DRUG (Buprenorphine/Naloxone 8mg/2mg 1 EACH Film) SUBLINGUAL SCH (08:23)
[2025-01-13] MEDS: LIDOCAINE 4% PATCH TOPICAL SCH (11:09)
[2025-01-13 11:11] LABS: Appearance,Urine Cloudy (Clear); Bacteria,Urine Rare /hpf; Bilirubin,Urine 1+ (Negative); Blood,Urine Negative (Negative); Color,Urine Dark Brown; Glucose,Urine (UA) Negative (Negative); Ketones,Urine 1+ (Negative); Leukocyte Esterase,Urine Large (Negative); Mucus,Urine Many /hpf; Nitrite,Urine Negative (Negative); PH, Urine 5.5 (5.0-8.0); Protein,Urine 1+ (Negative); RBC,Urine 1 /hpf (0-5); Specific Gravity,Urine 1.034 (1.001-1.035); Squamous Epithelial Cell,Urine 9 /hpf (0-4); WBC,Urine 50 /hpf (0-5)
[2025-01-13] MEDS: BUPRENORPHINE-NALOX 8-2 MG TAB 1 EACH TAB.SUBL SL SCH (11:16)
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
[2025-01-13 15:15] LABS: Chol/HDL Ratio 1.68 Ratio; LDL Cholesterol,Calculated 45.4 mg/dL (0.0-131.0); VLDL Calculation 10.06 mg/dL (5.00-40.00)
[2025-01-13 17:40] VITALS: BMI 31.2
[2025-01-13] MEDS: PRAZOSIN 1 MG CAP PO SCH (21:29)
--- NOTE | 2025-01-13 21:44 | CONS ---
CONSULTATION CHIEF COMPLAINT: Major depression and longstanding history of drug and narcotic addiction. HISTORY OF PRESENT ILLNESS: This lady has a long history of many psychiatric problems. She became depressed and came to the emergency room. At the present time, she has no symptoms. REVIEW OF SYSTEMS: She denies any headaches, chest pain, shortness of breath, cough, abdominal pain, hypertension, murmurs, seizures, etc. Past medical history, family history, and personal and social histories reveal that she is allergic to lithium and trazodone. MEDICATIONS: She was recently in the office and has been on: 1. BuSpar 10 mg t.i.d. p.r.n. 2. Hydroxyzine 25 mg 1 or 2 t.i.d. 3. Doxepin 25 mg 3 a day. 4. Suboxone 06/19, 2-1/2 films a day. Remainder of her history is unremarkable. PHYSICAL EXAMINATION: VITAL SIGNS: Normal. GENERAL: She appeared to be well developed, well nourished, and in no acute distress. She is awake and alert. HEAD, EARS, EYES, NOSE, MOUTH AND THROAT: Normal. CHEST: Clear. CARDIAC EXAM: Normal. ABDOMEN: Soft, nontender. EXTREMITIES: Normal. IMPRESSION: 1. Major depression. 2. Longstanding history of narcotic addiction and abuse. RECOMMENDATIONS: None. Thank you respectfully, SISI / RIDGE: [id number] /
[2025-01-14] MEDS: IBUPROFEN 600 MG TAB PO PRN (03:11)
--- NOTE | 2025-01-14 11:31 | P.PN ---
Progress Note - Text Progress Note Date: 01/14/25 Interval History: Patient was seen in bed and was directable and agreeable to speak with scenario writer in the office. Patient was notably somnolent, drowsy, expressing poor sleep overnight related to an intrusive peer attempting to get into her bed. She mentions difficulties both falling and staying asleep and reported increased anxiety overnight related to thoughts regarding her return to the recovery house. She expresses difficulties living with a lot of women at the recovery house and how she ultimately wishes to live with her ex and states that he claims once he gets a place of his own that she can stay with him. Patient was reminded of the reasoning behind her staying at the recovery house given her previous and current substance use in hopes of maintaining sobriety. She does wish to return to the recovery house upon discharge. She reports nightmares overnight, stating that they were very graphic as she does not wish to elaborate on the details. She continues to express suicidal ideations however does mention them being less intense than previous encounters. She is unsure about ideas of reference stating she has been avoiding TVs. Patient was encouraged to limit her as needed Haldol use as she is already on a scheduled dose and does appear somnolent today. At this time patient denies any homicidal ideations, intent or plan. Patient denies any auditory, visual hallucinations and denies any paranoia. Patient denies any side effects from the medications and has been compliant with meds. Mental Status Exam: General Appearance: Patient appears to be stated age is alert, directable, and cooperative. She has disheveled Behavior: Patient is calmly seated without any agitated behavior. She is somnolent Speech: Patient's speech is fluent and nonpressured. Mood/Affect: Mood is improving mildly, affect is congruent and constricted. Suicidality/Homicidality: Patient denies having any homicidal ideation intent or plan. She does report suicidal ideations, no plan or intent Perceptions: Patient denies any visual hallucinations and denies any auditory hallucinations Though content/process: There is no evidence of any overt delusional thought content and thought process is linear and goal-directed. Memory and concentration: AOX3, grossly intact for the purposes of this session Judgment and insight: Improving mildly Assessment Depression, unspecified Psychosis, unspecified Rule out substance-induced psychotic disorder PTSD Alcohol use disorder, in remission Opioid use disorder on maintenance therapy Nicotine dependence Stimulant use disorder Plan: -Patient continues to meet criteria for inpatient psychiatric admission for symptom stabilization and safety. Patient has signed adult voluntary form and medication consent and was placed in patient's chart. -Medications: Continue Haldol 2 mg twice daily for psychosis with a plan to transition to Haldol decanoate in the upcoming days, Zoloft 200 mg daily for depression, doxepin 75 mg at bedtime for sleep/mood, BuSpar 20 mg twice daily for anxiety, increase prazosin to 4 mg at bedtime for nightmares, add melatonin 5 mg at bedtime for insomnia -When necessary Ativan and Haldol for agitation/aggression. -Labs: Reviewed -NRT -nicotine patch -SW on board for discharge planning. Encouraged the patient to participate in milieu. Anticipate discharge sometime next week to recovery house
[2025-01-14] MEDS: LORazepam 0.5 MG TAB PO PRN (15:28)
[2025-01-14] MEDS: PRAZOSIN 1 MG CAP PO SCH (20:30)
[2025-01-14] MEDS: MELATONIN 5 MG TABLET PO SCH (20:30)
[2025-01-14] MEDS ORDERED: traZODone HCL 50 MG TAB PO SCH (21:00)
--- NOTE | 2025-01-15 12:19 | P.PN ---
Progress Note - Text Progress Note Date: 01/15/25 Interval History: Patient was seen in bed and was directable and agreeable to speak with continuity writer in the office. Patient states feeling "depressed". She reports sleeping on and off last night in addition to having nightmares. She does mention her appetite is improving in addition to the paranoia. She reports suicidal ideations with a plan to overdose however was able to contract for safety while in the hospital. She mentions being on doxepin for the past month and given her ongoing symptoms patient was in agreement with decreasing this medication and eventually discontinuing this and placement of mirtazapine given her sleep difficulties and decreased appetite. Dairy Farm Manager set a goal for patient to attend at least 1 group today as she has largely been isolative to her room. At this time patient denies any homicidal ideations, intent or plan. Patient denies any auditory, visual hallucinations and denies any paranoia or delusions. Patient denies any side effects from the medications and has been compliant with meds. Mental Status Exam: General Appearance: Patient appears to be stated age is alert, directable, and cooperative. Disheveled appearance Behavior: Patient is calmly seated without any agitated behavior. Less drowsy Speech: Patient's speech is fluent and nonpressured. Mood/Affect: Mood is "depressed", affect is congruent and constricted. Suicidality/Homicidality: Patient denies having any homicidal ideation intent or plan. She does report suicidal ideations with a plan no intent Perceptions: Patient denies any visual hallucinations and denies any auditory hallucinations Though content/process: There is no evidence of any delusional thought content and thought process is linear. Memory and concentration: AOX3, grossly intact for the purposes of this session Judgment and insight: Improving mildly Assessment Depression, unspecified Psychosis, unspecified Rule out substance-induced psychotic disorder PTSD Alcohol use disorder, in remission Opioid use disorder on maintenance therapy Nicotine dependence Stimulant use disorder Plan: -Patient continues to meet criteria for inpatient psychiatric admission for symptom stabilization and safety. Patient has signed adult voluntary form and medication consent and was placed in patient's chart. -Medications: Decrease doxepin to 25 mg at bedtime and start mirtazapine 7.5 mg at bedtime for sleep/mood/appetite (will look at possibly discontinuing doxepin over the weekend and increasing mirtazapine as tolerated). Continue Haldol 2 mg twice daily for psychosis, will transition to Haldol decanoate in the upcoming days, Zoloft 200 mg daily for depression, BuSpar 20 mg twice daily for anxiety, prazosin 4 mg at bedtime for nightmares, melatonin 5 mg at bedtime for insomnia -When necessary Ativan and Haldol for agitation/aggression. -Labs: Reviewed -NRT -nicotine patch -SW on board for discharge planning. Encouraged the patient to participate in milieu. Anticipate discharge sometime next week back to recovery house
[2025-01-15] MEDS: haloperidoL 5 MG TAB PO PRN (12:53)
[2025-01-15] MEDS: DOXEPIN 25 MG CAP PO SCH (20:12)
[2025-01-15] MEDS: MIRTAZAPINE 15 MG TAB PO SCH (20:12)
--- NOTE | 2025-01-16 16:27 | P.PN ---
Subjective Progress Note Date: 01/16/25 Principal diagnosis: bipolar 1 depressed with psychotic features Interval History: Patient was seenwalking in the [place] was directable and agreeable to speak with headline writer in the office. Patient states feeling "depressed". She reports sleeping better and she says that her PTSD nightmares are fairly well-controlled on the prazosin at 4 mg. She does mention her appetite is improving in addition to the paranoia. Patient denies any auditory, visual hallucinations and denies any paranoia or delusions. Patient denies any side effects from the medications and has been compliant with meds. The patient says that she has been struggling with depression for years and years and has tried all different kinds of medications and they don't work very well. She says it was at least one episode where she got going to fast didn't need to sleep talked a lot and was impulsive. She also says that the depression itself fluctuates sometimes is okay was at times his bed and she doesn't know why. Mental Status Exam:psychomotor activity is decreased General Appearance: Patient appears to be stated age is alert, directable, and cooperative. Disheveled appearance Behavior: Patient is calmly seated without any agitated behavior. Less drowsy Speech: Patient's speech is fluent and nonpressured. Mood/Affect: Mood is "depressed", affect is serious and flat Suicidality/Homicidality: Patient denies having any homicidal ideation intent or plan. She does report suicidal ideations with a plan no intent Perceptions: Patient denies any visual hallucinations and denies any auditory hallucinations Though content/process: There is no evidence of any delusional thought content and thought process is linear. Memory and concentration: AOX3, grossly intact for the purposes of this session Judgment and insight: Improving mildly Assessment I believe we might be dealing with a mood swing disorder and that this is probably bipolar 1 due to the 1 manic episode and the psychotic component of paranoia but mostly shows up as fluctuating depression in which case the Zoloft would probably either not help at all or make it worse. Of course is a substance use on top of things which complicates things. Rule out substance-induced psychotic disorder PTSD Alcohol use disorder, in remission Opioid use disorder on maintenance therapy Nicotine dependence Stimulant use disorder Plan:the major decision a shift direction from treating depression to treating mood swings but I do think we need to gather some more information and take a look at the possibility -Patient continues to meet criteria for inpatient psychiatric admission for symptom stabilization and safety. Patient has signed adult voluntary form and medication consent and was placed in patient's chart. -Medications: Decrease doxepin to 25 mg at bedtime and start mirtazapine 7.5 mg at bedtime for sleep/mood/appetite (will look at possibly discontinuing doxepin over the weekend and increasing mirtazapine as tolerated). Continue Haldol 2 mg twice daily for psychosis, will transition to Haldol decanoate in the upcoming d ays, Zoloft 200 mg daily for depression, BuSpar 20 mg twice daily for anxiety, prazosin 4 mg at bedtime for nightmares, melatonin 5 mg at bedtime for insomnia -When necessary Ativan and Haldol for agitation/aggression. -Labs: Reviewed -NRT -nicotine patch -SW on board for discharge planning. Encouraged the patient to participate in milieu. Anticipate discharge sometime next week back to recovery house Objective - Vital Signs Vital signs: Vital Signs Temp 98.1 F 01/16/25 08:48 Pulse 98 01/16/25 08:48 Resp 20 01/16/25 08:48 BP 118/72 01/16/25 08:48 Pulse Ox 100 01/15/25 03:01 FiO2 - Labs CBC & Chem 7: 01/13/25 07:49 01/13/25 07:49
[2025-01-16] MEDS: AMOXICILLIN 250 MG CAP PO SCH (17:40)
[2025-01-16] MEDS: LORazepam 1 MG TAB PO PRN (18:12)
--- NOTE | 2025-01-17 10:06 | P.PN ---
Subjective Progress Note Date: 01/17/25 Principal diagnosis: bipolar 1 depressed with psychotic features Interval History: Patient was seenspace lying in bed but was agreeable to speak with advertising writer in the office. Patient states feeling "depressed". She reports that she was not able to sleep. She says in her long struggle with moods she has tried trazodone and it makes her nauseatedand even pass out. melatonin doesn't help much she says she's also been on mirtazapine as high as 30 mg over a long period time and it neither helped her sleep no did anything for her depression.She says that her PTSD nightmares are fairly well-controlled on the prazosin at 4 mg. She does mention her appetite is improving in addition to the paranoia. Patient denies any auditory, visual hallucinations and denies any paranoia or delusions. Patient denies any side effects from the medications and has been compliant with meds. The patient says that she has been struggling with depression for years and years and has tried all different kinds of medications and they don't work very well. She says that there was at least one episode in which she got going to fast, didn't need to sleep, talked a lot, and was impulsive. She also says that the depression itself fluctuates sometimes is okay , and at other times the depression is bad and she doesn't know why. Mental Status Exam:psychomotor activity is decreasedand she seems sleepy General Appearance: Patient appears to be stated age is alert, directable, and cooperative. Disheveled appearance Behavior: Patient is calmly seated without any agitated behavior. Less drowsy Speech: Patient's speech is fluent and nonpressured. Mood/Affect: Mood is "depressed", affect is serious and flat Suicidality/Homicidality: Patient denies having any homicidal ideation intent o r plan. She does report suicidal ideations with a plan no intent Perceptions: Patient denies any visual hallucinations and denies any auditory hallucinations Though content/process: There is no evidence of any delusional thought content and thought process is linear. Memory and concentration: AOX3, grossly intact for the purposes of this session Judgment and insight: Improving mildly Assessment I believe we might be dealing with a mood swing disorder and that this is probably bipolar 1 due to the 1 manic episode and the psychotic component of paranoia but mostly shows up as fluctuating depression in which case the Zoloft would probably either not help at all or make it worse. Of course , there is substance use on top of things which complicates things. Rule out substance-induced psychotic disorder PTSD Alcohol use disorder, in remission Opioid use disorder on maintenance therapy Nicotine dependence Stimulant use disorder Plan:the major decision a shift direction from treating depression to treating mood swings but I do think we need to gather some more information and take a look at the possibilityof bipolar. She is on Haldol which would be a mood stabilizer. -Patient continues to meet criteria for inpatient psychiatric admission for symptom stabilization and safety. Patient has signed adult voluntary form and medication consent and was placed in patient's chart. -Medications: Decrease doxepin to 25 mg at bedtime and start mirtazapine 7.5 mg at bedtime for sleep/mood/appetite (will look at possibly discontinuing doxepin over the weekend and increasing mirtazapine as tolerated). Continue Haldol 2 mg twice daily for psychosis, will transition to Haldol decanoate in the upcoming days, Zoloft 200 mg daily for depression, BuSpar 20 mg twice daily for anxiety, prazosin 4 mg at bedtime for nightmares, melatonin 5 mg at bedtime for insomnia -When necessary Ativan and Haldol for agitation/aggression. -Labs: Reviewed -NRT -nicotine patch -SW on board for discharge planning. Encouraged the patient to participate in milieu. Anticipate discharge sometime next week back to recovery house Objective - Vital Signs Vital signs: Vital Signs Temp 98.1 F 01/16/25 08:48 Pulse 106 H 01/17/25 08:25 Resp 20 01/16/25 08:48 BP 111/75 01/17/25 08:25 Pulse Ox 100 01/15/25 03:01 FiO2 - Labs CBC & Chem 7: 01/13/25 07:49 01/13/25 07:49
[2025-01-17] MEDS: ZOLPIDEM 5 MG TAB PO SCH (20:28)
[2025-01-18 08:25] VITALS: RESP 16
--- NOTE | 2025-01-18 12:55 | P.PN ---
Progress Note - Text Progress Note Date: 01/18/25 Interval History: Patient was seen wandering the hallways and was directable and agreeable to sp iglesia with chief underwriter in the office. Patient notably appeared more bright, less sedated than previous encounters. She reports feeling "depressed" today, rating her depression an 8/10 in severity. Patient has not attended any groups despite that being the goal agreed to on Saturday and she was encouraged to attend today. Patient over the weekend had her Ativan increased and Ambien added at nighttime, some drug-seeking behaviors given patient's ongoing substance use and history of substance use. Patient is agreeable with returning to her recovery house. Patient still agreeable with transitioning to Haldol decanoate, denying any paranoia today. She reports sleeping well. She reports "a little" suicidal ideations, denying any plan or intent today. At this time patient denies any homicidal ideations, intent or plan. Patient denies any auditory, visual hallucinations and denies any paranoia or delusions. Patient denies any side effects from the medications and has been compliant with meds. Mental Status Exam: General Appearance: Patient appears to be stated age is alert, directable, and cooperative. Behavior: Patient is calmly seated without any agitated behavior. She appeared less drowsy Speech: Patient's speech is fluent and nonpressured. Mood/Affect: Mood is improving mildly, affect is congruent and constricted. Suicidality/Homicidality: Patient denies having any homicidal ideation intent or plan. She reports suicidal ideations, no plan or intent Perceptions: Patient denies any visual hallucinations and denies any auditory hallucinations Though content/process: There is no evidence of any delusional thought content and thought process is linear and logical. Memory and concentration: AOX3, grossly intact for the purposes of this session Judgment and insight: Improving mildly Assessment Depression, unspecified Psychosis, unspecified Rule out substance-induced psychotic disorder PTSD Alcohol use disorder, in remission Opioid use disorder on maintenance therapy Stimulant use disorder Nicotine dependence Plan: -Patient continues to meet criteria for inpatient psychiatric admission for symptom stabilization and safety. Patient has signed adult voluntary form and medication consent and was placed in patient's chart. -Medications: Discontinue Ambien and increase melatonin 10 mg at bedtime for insomnia, discontinue doxepin 25 mg and increase Remeron to 15 mg at bedtime for sleep/mood/appetite. Haldol decanoate 50 mg IM to be given today, will continue oral Haldol 2 mg twice daily in the interim until next shot. Continue prazosin 4 mg at bedtime for nightmares. -When necessary hydroxyzine and Haldol for agitation/aggression. -Labs: Reviewed -NRT -nicotine patch -SW on board for discharge planning. Encouraged the patient to participate in milieu. Anticipate discharge back to recovery house tomorrow pending transition to [facility] today
[2025-01-18] MEDS: HALOPERIDOL DECANOATE 50 MG/ML 1 ML VIAL IM SCH (14:16)
[2025-01-18] MEDS: hydrOXYzine pamoate 25 MG CAP PO PRN (17:37)
[2025-01-18] MEDS: MIRTAZAPINE 15 MG TAB PO SCH (20:43)
[2025-01-18] MEDS: MELATONIN 5 MG TABLET PO SCH (20:43)
[2025-01-19 08:29] VITALS: BP 105/72; PULSE 91; TEMP 96.4
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
== END 2025-01-19 13:56 | disposition home or self-care (01) | DRG 750 ==
LOC: EC 09:46 → 3MHU 13:07
PROVIDERS: ADMIT Psychiatry & Neurology Psychiatry; ATTEND Psychiatry & Neurology Psychiatry
DX: F32.3 Major depressive disorder, single episode, severe with psychotic features (principal); R45.851 Suicidal ideations; F11.20 Opioid dependence, uncomplicated; F15.10 Other stimulant abuse, uncomplicated; B19.20 Unspecified viral hepatitis C without hepatic coma; F10.11 Alcohol abuse, in remission; K76.9 Liver disease, unspecified; F41.0 Panic disorder [episodic paroxysmal anxiety]; F41.9 Anxiety disorder, unspecified; F43.10 Post-traumatic stress disorder, unspecified; G47.00 Insomnia, unspecified; G89.29 Other chronic pain; F17.290 Nicotine dependence, other tobacco product, uncomplicated; Z79.899 Other long term (current) drug therapy; Z91.52 Personal history of nonsuicidal self-harm; Z76.5 Malingerer [conscious simulation]; Z88.8 Allergy status to other drugs, medicaments and biological substances
CPT/HCPCS: 80053; 80061; 80306; 81001; 82075; 82248; 83036; 84443; 85025; 87635; 99285